=== PATIENT | male | born 1965 | race Caucasian/White ===

== ENCOUNTER 2017-02-03 09:14 | Inpatient (IN) | payer MEDICARE, MEDICAID ==
[~2017-02-03] VITALS: Ht 175.3 cm; Wt 109.2 kg
[2017-02-03] MEDS: OLANZapine 10 MG TAB PO SCH (09:00)
[~2017-02-03 09:14] MED LIST: /HALO5TAB OR; BENZ-52 PO; COGE1INJ OR; COLA100C5 PO; GABA600T PO; HALD100I2 IM; HALO5TA PO; Haldol Decanoate IM; KLON0.5T PO; NEUR300C PO; NICO21DI4 TD; TRAZ50TA11 PO
[2017-02-03] MEDS ORDERED: NICOTINE 21MG/24HR 1 EA TRANSDERMAL TD ONE (09:45)
[2017-02-03] MEDS ORDERED: HALD100I2 IM (11:38)
[2017-02-03] MEDS ORDERED: GABA-279 PO (11:38)
[2017-02-03] MEDS ORDERED: GABA-283 PO (11:38)
[2017-02-03] MEDS ORDERED: BENZ0.5T PO (11:38)
[2017-02-03] MEDS ORDERED: DOCU100C16 PO (11:38)
[2017-02-03] MEDS ORDERED: BUSP1TAB PO (12:07)
[2017-02-03] MEDS ORDERED: VENL75CA47 PO (12:07)
[2017-02-03 15:02] VITALS: BP 129/76
[2017-02-03] MEDS ORDERED: MOM 30ML SUSPENSION UDC PO PRN (15:45)
[2017-02-03] MEDS ORDERED: MAALOX 30 ML SUSP *UDC PO PRN (15:45)
[2017-02-03] MEDS ORDERED: traZODone 50 MG TAB PO PRN (16:45)
[2017-02-03] MEDS: DOCUSATE SODIUM 100 MG CAP PO SCH (21:28)
[2017-02-04] MEDS: OLANZapine 10 MG TAB PO SCH (08:59)
[2017-02-04] MEDS: DOCUSATE SODIUM 100 MG CAP PO SCH ×2 (08:59→20:45)
[2017-02-04] MEDS: NICOTINE 21MG/24HR 1 EA TRANSDERMAL TD SCH (11:47)
[2017-02-04] MEDS: VENLAFAXINE **XR** 75MG CAPSULE PO SCH (14:54)
[2017-02-04] MEDS: GABAPENTIN 100 MG CAP PO SCH (14:54)
[2017-02-04] MEDS: BENZTROPINE 0.5 MG TAB PO SCH ×2 (14:54→20:46)
[2017-02-04] MEDS: HALOPERIDOL DECANOATE 100 MG/ML VIAL (J1631) IM SCH (14:55)
[2017-02-04] MEDS: busPIRone 5 MG TAB PO SCH ×2 (15:54→20:44)
[2017-02-04 16:47] LABS: ALBUMIN 3.6 GM/DL (3.2-5.2); ALBUMIN/GLOBULIN RATIO 1.03 (1.00-1.93); ALKALINE PHOSPHATASE 66 U/L (45-117); ALT/SGPT 32 U/L (12-78); AST/SGOT 19 U/L (15-37); BILIRUBIN,DIRECT < 0.1 MG/DL (0.0-0.2); BILIRUBIN,TOTAL 0.4 MG/DL (0.2-1.0); TOTAL PROTEIN 7.1 GM/DL (6.4-8.2)
[2017-02-04 18:00] VITALS: BP 117/63
[2017-02-04] MEDS: GABAPENTIN 400 MG CAP PO SCH (20:45)
[2017-02-04] MEDS: MIRTAZAPINE 15 MG TAB PO SCH (20:46)
[2017-02-04] MEDS: QUEtiapine FUMARATE 200 MG TAB PO SCH (20:47)
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
--- NOTE | 2017-02-04 23:20 | HPE ---
DATE OF ADMISSION: 02/03/2017 HISTORY OF PRESENT ILLNESS: Please refer to the psychiatric history and evaluation for further details on this admission. This examination and history performed is intended for medical issues which may need treatment, followup or consultation on this 51-year-old male that was transferred from [facility] having paranoid thoughts. ALLERGIES: FLUPHENAZINE, LITHIUM, LOXAPINE, MEPERIDINE, PHENOTHIAZINE, THORAZINE, THIOTHIXENE. SOCIAL HISTORY: He is single. Smokes - one pack of cigarettes per day. PAST MEDICAL HISTORY: Per the record anxiety, bipolar disorder, paranoid schizophrenia. PAST SURGICAL HISTORY: Colonoscopy for polyps, nasal surgery, cardiac catheterization. REVIEW OF SYSTEMS: The patient was asked for review of systems and physical examination by myself and declined as well as declined to the health and safety coordinator [place]. PHYSICAL EXAMINATION: The patient declined any history and physical. He refused any examination attempted on the , and . The patient continues to still refuse. Vital signs: Height is 69 inches, weight is 98.1 kg. BMI is 31.9. Blood pressure was 129/76, pulse 95, respirations 18, temperature 97.9.
[2017-02-05] MEDS ORDERED: GABAPENTIN 100 MG CAP PO ONE (09:00)
[2017-02-05] MEDS: DOCUSATE SODIUM 100 MG CAP PO SCH ×2 (09:04→21:53)
[2017-02-05] MEDS: VENLAFAXINE **XR** 75MG CAPSULE PO SCH (09:04)
[2017-02-05] MEDS: GABAPENTIN 100 MG CAP PO SCH (09:04)
[2017-02-05] MEDS: busPIRone 5 MG TAB PO SCH ×3 (09:04→21:53)
[2017-02-05] MEDS: BENZTROPINE 0.5 MG TAB PO SCH ×2 (09:04→21:54)
[2017-02-05] MEDS: NICOTINE 21MG/24HR 1 EA TRANSDERMAL TD SCH (09:09)
--- NOTE | 2017-02-05 15:24 | IPNPDOC ---
[facility] Progress Note Progress Note DATE OF SERVICE: 02/05/17 Evaluated 51-year-old male with history of schizoaffective disorder versus paranoid schizophrenia. The patient states that he feels safe at the inpatient mental health unit and that he wants to move to [place] and leave [facility], because he knows that people want to kill him there. He doesn't know which people are those that want to kill him. Patient refused to take his Seroquel dose at night and he says he doesn't want to take it, that he already takes too many medications. He continues to affirm that somebody is chasing him and wants him . CURRENT MEDICATIONS: See below. MENTAL STATUS EXAMINATION: Patient is a 51-year old male, who is resting hospital clothes, alert, guarded, very anxious and with poor eye contact. Speech: Is limited. He doesn't speak very much but the tone, volume and speed of his speech are normal. There is no pressured speech and no circumstantiality. There is no tangentiality. Language skills are fair. Thought processes including: Linear. Thought content: Positive for paranoid and persecutory delusions, negative for homicidal or suicidal ideation. Negative for auditory or visual hallucinations, negative for obsessions and compulsions and negative for phobias. Abstract reasoning, and computation: Fair. Description of associations: No loosening of associations Description of abnormal or psychotic thoughts: Delusional thoughts (paranoid and persecutory). Judgment: Poor. Insight: Poor. Orientation: Oriented 3. Recent and remote memory: Intact. Attention span and concentration: For. Language: Fluid, structured. Fund of knowledge: Poor. Mood: "I feel safer here". Affect: Guarded DIAGNOSES: 1. Paranoid schizophrenia. 2. Rule out schizoaffective disorder. . ASSESSMENT: The patient is very delusional and he needs to be hospitalized for further treatment, with medications and psychotherapy. MANAGEMENT PLAN: Patient will continue to be hospitalized on the proper arrangements will be made for him to continue as an outpatient once he is stabilized. TIME SPENT: 15 minutes. Vital Signs Vital Signs Date Time Temp Pulse Resp B/P Pulse Ox O2 Delivery O2 Flow Rate FiO2 02/05/17 08:30 Room Air 02/04/17 18:00 99.0 88 18 117/63 02/03/17 15:02 97 Current Medications Current Medications Acetaminophen (Tylenol Tab) 650 mg Q6HP PRN PO HEADACHE or DISCOMFORT; Start at 15:45; Stop 03/05/17 at 15:44 Al Hydrox/Mg Hydrox/Simethicone (Mylanta) 30 ml Q4HP PRN PO HEARTBURN/ INDIGESTION; Start 02/03/17 at 15:45; Stop 03/05/17 at 15:44 Benztropine Mesylate (Cogentin) 0.5 mg BID PO Last administered on 02/05/17 09 :04; Start 02/04/17 at 09:00; Stop 03/06/17 at 08:59 Buspirone HCl (Buspar) 7.5 mg TID PO Last administered on 02/05/17 09:04; Start 02/04/17 at 16:00; Stop 03/06/17 at 15:59 Docusate Sodium (Colace) 100 mg BID PO Last administered on 02/05/17 09:04; Start 02/03/17 at 21:00; Stop 03/05/17 at 20:59 Gabapentin (Neurontin) 100 mg QAM PO Last administered on 02/05/17 09:04; Start 02/04/17 at 09:00; Stop 03/06/17 at 08:59 Gabapentin (Neurontin) 400 mg QHS PO Last administered on 02/04/17 20:45; Start 02/04/17 at 21:00; Stop 03/06/17 at 20:59 Haloperidol Decanoate (Haldol Decanoate) 50 mg Q14D@14 IM Last administered on 02/04/17 14:55; Start 02/04/17 at 14:00; Stop 03/06/17 at 13:59 Home Med (Med Rec Complete!) ASDIRECTED XX ; Start 02/03/17 at 12:15; Stop at 12:15; Status DC Lorazepam (Ativan) 1 mg Q8HP PRN PO ANXIETY/AGITATION; Start 02/03/17 at 15:45 ; Stop 02/10/17 at 15:44 Magnesium Hydroxide (Milk Of Magnesia) 30 ml DAILYPRN PRN PO CONSTIPATION; Start 02/03/17 at 15:45; Stop 03/05/17 at 15:44 Mirtazapine (Remeron) 15 mg QHS PO Last administered on 02/04/17 20:46; Start 02/04/17 at 21:00; Stop 03/06/17 at 20:59 Nicotine (Nicoderm Cq 21mg) 1 patch DAILY TD Last administered on 02/05/17 09: 09; Start 02/04/17 at 09:00; Stop 03/06/17 at 08:59 Olanzapine (ZyPREXA) 10 mg DAILY PO Last administered on 02/04/17 08:59; Start 02/03/17 at 09:00; Stop 02/04/17 at 14:20; Status DC Quetiapine Fumarate (SEROquel) 200 mg QHS PO ; Start 02/04/17 at 21:00; Stop at 20:59 Trazodone HCl (Desyrel) 50 mg QHSP PRN PO INSOMNIA; Start 02/03/17 at 16:45; Stop 03/05/17 at 16:44; Status Cancel Venlafaxine HCl (Effexor Xr) 75 mg DAILY PO Last administered on 02/05/17 09:04; Start 02/04/17 at 09:00; Stop 03/06/17 at 08:59 Allergies Coded Allergies: Loxapine (Verified Allergy, Mild, 01/21/13) Thiothixene (Verified Allergy, Mild, 01/21/13) Fluphenazine (Verified Allergy, Unknown, 09/12/15) UNKNOWN [place] (Verified Allergy, Unknown, UNKNOWN, 09/12/15) Meperidine (Verified Allergy, Unknown, UNKNOWN, 09/12/15) Phenothiazines (Verified Allergy, Unknown, UNKNOWN, 09/12/15) Thioridazine (Verified Allergy, Unknown, UNKNOWN, 09/12/15) KELVIN GARIBAY MD Feb 05, 2017 15:24
[2017-02-05 18:00] VITALS: BP 110/70
[2017-02-05] MEDS: QUEtiapine FUMARATE 200 MG TAB PO SCH (21:00)
[2017-02-05] MEDS: MIRTAZAPINE 15 MG TAB PO SCH (21:52)
[2017-02-05] MEDS: GABAPENTIN 400 MG CAP PO SCH (21:54)
[2017-02-05] MEDS: LORazepam 1 MG TAB PO PRN (23:37)
[2017-02-06] MEDS: NICOTINE 21MG/24HR 1 EA TRANSDERMAL TD SCH (08:28)
[2017-02-06] MEDS: VENLAFAXINE **XR** 75MG CAPSULE PO SCH (08:28)
[2017-02-06] MEDS: busPIRone 5 MG TAB PO SCH ×3 (08:28→20:21)
[2017-02-06] MEDS: GABAPENTIN 100 MG CAP PO SCH (08:29)
[2017-02-06] MEDS: DOCUSATE SODIUM 100 MG CAP PO SCH ×2 (08:29→20:21)
[2017-02-06] MEDS: BENZTROPINE 0.5 MG TAB PO SCH ×2 (08:29→20:21)
--- NOTE | 2017-02-06 13:06 | IPNPDOC ---
[facility] Progress Note Progress Note DATE OF SERVICE: 02/06/17 Evaluated 51-year-old male with history of schizoaffective disorder versus paranoid schizophrenia who continues to be delusional. He still believes that there are people were trying to kill him and that's why he wants to move from [place] to [place]. He has continued to refuse to take Seroquel. CURRENT MEDICATIONS: See below. MENTAL STATUS EXAMINATION: Patient is a 51-year old male, who is anxious, cooperative, internally preoccupied. Speech: Is not tangential and not circumstantial. There is poverty of speech because he is focused in his paranoid delusions and for that reason he has trouble in keeping up a conversation for a long period of time. Language skills are fair. Thought processes including: Linear. Thought content: Paranoid and persecutory delusions are present. Seems to be responding to internal stimuli Abstract reasoning, and computation: He has problems with abstract reasoning and he is not able to concentrate enough in order to do substractions. Description of associations: No loosening of associations Description of abnormal or psychotic thoughts: Paranoid, persecutory delusions. Denies having auditory hallucinations but he is internally preoccupied. Judgment: Very poor. Insight: Very poor. Orientation: Oriented 3. Recent and remote memory: Recent is average. This is difficult to assess remote memory because he is not willing to talk much about his past. Attention span and concentration: Poor. Language: Fair. Fund of knowledge: Fair. Mood: Anxious. Affect: Anxious and depressed. DIAGNOSES: 1. Paranoid schizophrenia. 2. And major depressive disorder. ASSESSMENT: Patient is unstable, continues to be very guarded. Needs to continue hospitalization for further stabilization with medications and psychotherapy. Continues to refuse Seroquel and he doesn't want to accept any other mood stabilizer such as Depakote. MANAGEMENT PLAN: Continue hospitalization until his illness is adequately controlled. TIME SPENT: 15 minutes. Vital Signs Vital Signs Date Time Temp Pulse Resp B/P Pulse Ox O2 Delivery O2 Flow Rate FiO2 02/05/17 18:00 98.1 90 18 110/70 02/05/17 08:30 Room Air 02/03/17 15:02 97 Current Medications Current Medications Acetaminophen (Tylenol Tab) 650 mg Q6HP PRN PO HEADACHE or DISCOMFORT; Start at 15:45; Stop 03/05/17 at 15:44 Al Hydrox/Mg Hydrox/Simethicone (Mylanta) 30 ml Q4HP PRN PO HEARTBURN/ INDIGESTION; Start 02/03/17 at 15:45; Stop 03/05/17 at 15:44 Benztropine Mesylate (Cogentin) 0.5 mg BID PO Last administered on 02/06/17 08 :29; Start 02/04/17 at 09:00; Stop 03/06/17 at 08:59 Buspirone HCl (Buspar) 7.5 mg TID PO Last administered on 02/06/17 08:28; Start 02/04/17 at 16:00; Stop 03/06/17 at 15:59 Docusate Sodium (Colace) 100 mg BID PO Last administered on 02/06/17 08:29; Start 02/03/17 at 21:00; Stop 03/05/17 at 20:59 Gabapentin (Neurontin) 100 mg QAM PO Last administered on 02/06/17 08:29; Start 02/04/17 at 09:00; Stop 03/06/17 at 08:59 Gabapentin (Neurontin) 400 mg QHS PO Last administered on 02/05/17 21:54; Start 02/04/17 at 21:00; Stop 03/06/17 at 20:59 Haloperidol Decanoate (Haldol Decanoate) 50 mg Q14D@14 IM Last administered on 02/04/17 14:55; Start 02/04/17 at 14:00; Stop 03/06/17 at 13:59 Home Med (Med Rec Complete!) ASDIRECTED XX ; Start 02/03/17 at 12:15; Stop at 12:15; Status DC Lorazepam (Ativan) 1 mg Q8HP PRN PO ANXIETY/AGITATION Last administered on 02/05 23:37; Start 02/03/17 at 15:45; Stop 02/10/17 at 15:44 Magnesium Hydroxide (Milk Of Magnesia) 30 ml DAILYPRN PRN PO CONSTIPATION; Start 02/03/17 at 15:45; Stop 03/05/17 at 15:44 Mirtazapine (Remeron) 15 mg QHS PO Last administered on 02/05/17 21:52; Start 02/04/17 at 21:00; Stop 03/06/17 at 20:59 Nicotine (Nicoderm Cq 21mg) 1 patch DAILY TD Last administered on 02/06/17 08: 28; Start 02/04/17 at 09:00; Stop 03/06/17 at 08:59 Olanzapine (ZyPREXA) 10 mg DAILY PO Last administered on 02/04/17 08:59; Start 02/03/17 at 09:00; Stop 02/04/17 at 14:20; Status DC Quetiapine Fumarate (SEROquel) 200 mg QHS PO ; Start 02/04/17 at 21:00; Stop at 20:59 Trazodone HCl (Desyrel) 50 mg QHSP PRN PO INSOMNIA; Start 02/03/17 at 16:45; Stop 03/05/17 at 16:44; Status Cancel Venlafaxine HCl (Effexor Xr) 75 mg DAILY PO Last administered on 02/06/17 08:28; Start 02/04/17 at 09:00; Stop 03/06/17 at 08:59 Allergies Coded Allergies: Loxapine (Verified Allergy, Mild, 01/21/13) Thiothixene (Verified Allergy, Mild, 01/21/13) Fluphenazine (Verified Allergy, Unknown, 09/12/15) UNKNOWN [place] (Verified Allergy, Unknown, UNKNOWN, 09/12/15) Meperidine (Verified Allergy, Unknown, UNKNOWN, 09/12/15) Phenothiazines (Verified Allergy, Unknown, UNKNOWN, 09/12/15) Thioridazine (Verified Allergy, Unknown, UNKNOWN, 09/12/15) KELVIN GARIBAY MD Feb 06, 2017 13:06
[2017-02-06 18:00] VITALS: BP 129/72
[2017-02-06] MEDS: GABAPENTIN 400 MG CAP PO SCH (20:21)
[2017-02-06] MEDS: MIRTAZAPINE 15 MG TAB PO SCH (20:21)
[2017-02-06] MEDS: QUEtiapine FUMARATE 200 MG TAB PO SCH (20:22)
[2017-02-07] MEDS: busPIRone 5 MG TAB PO SCH ×3 (08:16→20:14)
[2017-02-07] MEDS: GABAPENTIN 100 MG CAP PO SCH (08:16)
[2017-02-07] MEDS: DOCUSATE SODIUM 100 MG CAP PO SCH ×2 (08:16→20:15)
[2017-02-07] MEDS: NICOTINE 21MG/24HR 1 EA TRANSDERMAL TD SCH (08:16)
[2017-02-07] MEDS: BENZTROPINE 0.5 MG TAB PO SCH ×2 (08:16→20:15)
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
[2017-02-07 18:00] VITALS: BP 110/77
[2017-02-07] MEDS: GABAPENTIN 400 MG CAP PO SCH (20:14)
[2017-02-07] MEDS: MIRTAZAPINE 15 MG TAB PO SCH (20:15)
[2017-02-07] MEDS: VENLAFAXINE **XR** 75MG CAPSULE PO SCH (20:17)
[2017-02-07] MEDS: LORazepam 1 MG TAB PO PRN (23:13)
[2017-02-08 06:24] VITALS: BP 111/67
[2017-02-08] MEDS: GABAPENTIN 100 MG CAP PO SCH (09:03)
[2017-02-08] MEDS: DOCUSATE SODIUM 100 MG CAP PO SCH ×2 (09:03→20:18)
[2017-02-08] MEDS: BENZTROPINE 0.5 MG TAB PO SCH ×2 (09:03→20:18)
[2017-02-08] MEDS: NICOTINE 21MG/24HR 1 EA TRANSDERMAL TD SCH (09:03)
[2017-02-08] MEDS: busPIRone 5 MG TAB PO SCH ×3 (09:04→20:18)
[2017-02-08] MEDS: VENLAFAXINE **XR** 75MG CAPSULE PO SCH (20:18)
[2017-02-08] MEDS: GABAPENTIN 400 MG CAP PO SCH (20:18)
[2017-02-08] MEDS: MIRTAZAPINE 15 MG TAB PO SCH (20:18)
[2017-02-09] MEDS: busPIRone 5 MG TAB PO SCH ×3 (07:51→20:00)
[2017-02-09] MEDS: NICOTINE 21MG/24HR 1 EA TRANSDERMAL TD SCH (07:51)
[2017-02-09] MEDS: DOCUSATE SODIUM 100 MG CAP PO SCH ×2 (07:52→20:01)
[2017-02-09] MEDS: BENZTROPINE 0.5 MG TAB PO SCH ×2 (07:52→20:00)
[2017-02-09] MEDS: GABAPENTIN 100 MG CAP PO SCH (07:52)
[2017-02-09 18:00] VITALS: BP 100/60
[2017-02-09] MEDS: MIRTAZAPINE 15 MG TAB PO SCH (20:00)
[2017-02-09] MEDS: GABAPENTIN 400 MG CAP PO SCH (20:01)
[2017-02-09] MEDS: VENLAFAXINE **XR** 75MG CAPSULE PO SCH (20:01)
[2017-02-10] MEDS: LORazepam 1 MG TAB PO PRN (00:11)
[2017-02-10 07:05] VITALS: BP 122/67
[2017-02-10] MEDS: DOCUSATE SODIUM 100 MG CAP PO SCH ×2 (09:08→20:47)
[2017-02-10] MEDS: BENZTROPINE 0.5 MG TAB PO SCH ×2 (09:08→20:48)
[2017-02-10] MEDS: busPIRone 5 MG TAB PO SCH ×3 (09:09→20:48)
[2017-02-10] MEDS: GABAPENTIN 100 MG CAP PO SCH (09:09)
[2017-02-10] MEDS: NICOTINE 21MG/24HR 1 EA TRANSDERMAL TD SCH (09:11)
--- NOTE | 2017-02-10 17:02 | IPNPDOC ---
[facility] Progress Note Progress Note DATE OF SERVICE: 02/10/17 HISTORY: Evaluated pt. known for paranoid Schizophrenia who was admitted for being depressed, anxious and delusional. He has reported he doesn't want to continue living in [place] because "those people want to kill me". He persists with that idea and he has reported that his peers at [facility], [facility] are stealing his socks. He was hospitalized last year at [place] for 9 months. According to history, he hasn't been able to live on his won because he doesn't feel safe unless he's institutionalized. According to staff and patient he broke up with his girlfriend over the phone on Friday and that has affected his mood. VITAL SIGNS: See below. NEW TEST RESULTS: None. CURRENT MEDICATIONS: See below. MENTAL STATUS EXAMINATION: Patient is a 51-year old male, who is alert, less guarded, cooperative, with poor eye contact. Speech: Is normal. Language skills are fair. Thought processes including: irrational thoughts. Thought content: Negative for SI, negative HI, positiv for auditory hallucinations. Responds to internal stimuli Abstract reasoning, and computation: Impaired. Description of associations: No loosening of associations. Description of abnormal or psychotic thoughts: Delusional, paranoid and persecutory type. Judgment: Poor. Insight: Poor. Orientation: Oriented to place and person but not to time and date. Recent and remote memory: Impaired. Attention span and concentration: Poor. Language: Fluid, articulate. Fund of knowledge: Fair. Mood: "I'm anxious, where am I going to go now?". Affect: Sad, anxious. DIAGNOSES: 1. Schizophrenia, paranoid type. 2. Major Depressive Disorder. ASSESSMENT: Pt. is less withdrawn, he is more talkative and receptive. He's able to maintain longer conversations. He is still depressed and anxious, but less than upon admission MANAGEMENT PLAN: Will f/u transfer plan to [place]. TIME SPENT: 15 minutes. Vital Signs Vital Signs Date Time Temp Pulse Resp B/P Pulse Ox O2 Delivery O2 Flow Rate FiO2 02/10/17 07:05 97.9 99 18 122/67 Room Air Current Medications Current Medications Acetaminophen (Tylenol Tab) 650 mg Q6HP PRN PO HEADACHE or DISCOMFORT; Start at 15:45; Stop 03/05/17 at 15:44 Al Hydrox/Mg Hydrox/Simethicone (Mylanta) 30 ml Q4HP PRN PO HEARTBURN/ INDIGESTION; Start 02/03/17 at 15:45; Stop 03/05/17 at 15:44 Aripiprazole (AbiLIFY) 2.5 mg QHS PO Last administered on 02/09/17 20:00; Start 02/07/17 at 21:00; Stop 03/09/17 at 20:59 Benztropine Mesylate (Cogentin) 0.5 mg BID PO Last administered on 02/10/17 09 :08; Start 02/04/17 at 09:00; Stop 03/06/17 at 08:59 Buspirone HCl (Buspar) 7.5 mg TID PO Last administered on 02/10/17 15:50; Start 02/04/17 at 16:00; Stop 03/06/17 at 15:59 Docusate Sodium (Colace) 100 mg BID PO Last administered on 02/10/17 09:08; Start 02/03/17 at 21:00; Stop 03/05/17 at 20:59 Gabapentin (Neurontin) 100 mg QAM PO Last administered on 02/10/17 09:09; Start 02/04/17 at 09:00; Stop 03/06/17 at 08:59 Gabapentin (Neurontin) 400 mg QHS PO Last administered on 02/09/17 20:01; Start 02/04/17 at 21:00; Stop 03/06/17 at 20:59 Haloperidol Decanoate (Haldol Decanoate) 50 mg Q14D@14 IM Last administered on 02/04/17 14:55; Start 02/04/17 at 14:00; Stop 03/06/17 at 13:59 Home Med (Med Rec Complete!) ASDIRECTED XX ; Start 02/03/17 at 12:15; Stop at 12:15; Status DC Lorazepam (Ativan) 1 mg Q8HP PRN PO ANXIETY/AGITATION Last administered on 02/10 00:11; Start 02/03/17 at 15:45; Stop 02/16/17 at 15:44 Magnesium Hydroxide (Milk Of Magnesia) 30 ml DAILYPRN PRN PO CONSTIPATION; Start 02/03/17 at 15:45; Stop 03/05/17 at 15:44 Mirtazapine (Remeron) 15 mg QHS PO Last administered on 02/09/17 20:00; Start 02/04/17 at 21:00; Stop 03/06/17 at 20:59 Nicotine (Nicoderm Cq 21mg) 1 patch DAILY TD Last administered on 02/10/17 09: 11; Start 02/04/17 at 09:00; Stop 03/06/17 at 08:59 Olanzapine (ZyPREXA) 10 mg DAILY PO Last administered on 02/04/17 08:59; Start 02/03/17 at 09:00; Stop 02/04/17 at 14:20; Status DC Quetiapine Fumarate (SEROquel) 200 mg QHS PO ; Start 02/04/17 at 21:00; Stop at 13:42; Status DC Trazodone HCl (Desyrel) 50 mg QHSP PRN PO INSOMNIA; Start 02/03/17 at 16:45; Stop 03/05/17 at 16:44; Status Cancel Venlafaxine HCl (Effexor Xr) 75 mg DAILY PO Last administered on 02/06/17 08:28; Start 02/04/17 at 09:00; Stop 02/06/17 at 18:02; Status DC Venlafaxine HCl (Effexor Xr) 150 mg QHS PO Last administered on 02/09/17 20:01; Start 02/07/17 at 21:00; Stop 03/09/17 at 20:59 Allergies Coded Allergies: Loxapine (Verified Allergy, Mild, 01/21/13) Thiothixene (Verified Allergy, Mild, 01/21/13) Fluphenazine (Verified Allergy, Unknown, 09/12/15) UNKNOWN [place] (Verified Allergy, Unknown, UNKNOWN, 09/12/15) Meperidine (Verified Allergy, Unknown, UNKNOWN, 09/12/15) Phenothiazines (Verified Allergy, Unknown, UNKNOWN, 09/12/15) Thioridazine (Verified Allergy, Unknown, UNKNOWN, 09/12/15) KELVIN GARIBAY MD Feb 10, 2017 17:02
[2017-02-10 18:00] VITALS: BP 92/52
[2017-02-10] MEDS: GABAPENTIN 400 MG CAP PO SCH (20:47)
[2017-02-10] MEDS: VENLAFAXINE **XR** 75MG CAPSULE PO SCH (20:47)
[2017-02-10] MEDS: MIRTAZAPINE 15 MG TAB PO SCH (20:48)
[2017-02-11] MEDS: DOCUSATE SODIUM 100 MG CAP PO SCH ×2 (08:09→20:50)
[2017-02-11] MEDS: GABAPENTIN 100 MG CAP PO SCH (08:09)
[2017-02-11] MEDS: NICOTINE 21MG/24HR 1 EA TRANSDERMAL TD SCH (08:09)
[2017-02-11] MEDS: busPIRone 5 MG TAB PO SCH ×3 (08:09→20:50)
[2017-02-11] MEDS: BENZTROPINE 0.5 MG TAB PO SCH ×2 (08:10→20:50)
--- NOTE | 2017-02-11 11:51 | IPNPDOC ---
[facility] Progress Note Progress Note DATE OF SERVICE: 02/11/17 HISTORY: Evaluated 51 year old male with history of Schizophrenia, paranoid type , with persecutory and paranoid delusions, who doesn't feel safe when living on his own. He was hospitalized at [place] for 9 months and he is concerned about his future living situation. VITAL SIGNS: See below. NEW TEST RESULTS: None. CURRENT MEDICATIONS: See below. MENTAL STATUS EXAMINATION: Patient is a 51-year old male, who is alert, oriented, cooperative with interview, with improved eye contact. Speech: Is not tangential and not circumstantial. Language skills are fair. Thought processes including: Linear. Thought content: Paranoid and persecutory delusions are present. He denies auditory or visual hallucinations but he continues to be internally preoccupied Abstract reasoning, and computation: Poor Description of associations: No loosening of associations. Description of abnormal or psychotic thoughts: Delusional, persecutory and paranoid-type. He believes there is a group of drug dealers in his hometown and want to kill him over his properties. He explained that these people want to take over his properties and because he hasn't agreed to that, they want to kill him. He states these people were his brother acquaintances and that his ex- girlfriend knew them too. Judgment: Poor. Insight: For. Orientation: Oriented to place and person and partially to place and time. Recent and remote memory: Poor. Attention span and concentration: Poor. Language: Fair. Fund of"I'm on and off with my depression" Affect: Constricted. DIAGNOSES: 1. Schizophrenia, paranoid type. 2. Major depressive disorder. 3. Anxiety. ASSESSMENT: Patient has made some progress since he was admitted. He is able to keep eye contact, he is less guarded and defensive, he is able to maintain a longer conversation. He has improved but not to the desired level. MANAGEMENT PLAN: Will continue current treatment plan and will follow up on the possibility of transferring him to some [place]. The author of this document will explain to him that once he is Stable, some [facility] will be able to referred him and transfer him to [facility]. TIME SPENT: 15 minutes. Vital Signs Vital Signs Date Time Temp Pulse Resp B/P Pulse Ox O2 Delivery O2 Flow Rate FiO2 02/10/17 18:00 97.3 83 16 92/52 02/10/17 07:05 Room Air Current Medications Current Medications Acetaminophen (Tylenol Tab) 650 mg Q6HP PRN PO HEADACHE or DISCOMFORT; Start at 15:45; Stop 03/05/17 at 15:44 Al Hydrox/Mg Hydrox/Simethicone (Mylanta) 30 ml Q4HP PRN PO HEARTBURN/ INDIGESTION; Start 02/03/17 at 15:45; Stop 03/05/17 at 15:44 Aripiprazole (AbiLIFY) 2.5 mg QHS PO Last administered on 02/10/17 20:50; Start 02/07/17 at 21:00; Stop 03/09/17 at 20:59 Benztropine Mesylate (Cogentin) 0.5 mg BID PO Last administered on 02/11/17 08 :10; Start 02/04/17 at 09:00; Stop 03/06/17 at 08:59 Buspirone HCl (Buspar) 7.5 mg TID PO Last administered on 02/11/17 08:09; Start 02/04/17 at 16:00; Stop 03/06/17 at 15:59 Docusate Sodium (Colace) 100 mg BID PO Last administered on 02/11/17 08:09; Start 02/03/17 at 21:00; Stop 03/05/17 at 20:59 Gabapentin (Neurontin) 100 mg QAM PO Last administered on 02/11/17 08:09; Start 02/04/17 at 09:00; Stop 03/06/17 at 08:59 Gabapentin (Neurontin) 400 mg QHS PO Last administered on 02/10/17 20:47; Start 02/04/17 at 21:00; Stop 03/06/17 at 20:59 Haloperidol Decanoate (Haldol Decanoate) 50 mg Q14D@14 IM Last administered on 02/04/17 14:55; Start 02/04/17 at 14:00; Stop 03/06/17 at 13:59 Home Med (Med Rec Complete!) ASDIRECTED XX ; Start 02/03/17 at 12:15; Stop at 12:15; Status DC Lorazepam (Ativan) 1 mg Q8HP PRN PO ANXIETY/AGITATION Last administered on 02/10 00:11; Start 02/03/17 at 15:45; Stop 02/16/17 at 15:44 Magnesium Hydroxide (Milk Of Magnesia) 30 ml DAILYPRN PRN PO CONSTIPATION; Start 02/03/17 at 15:45; Stop 03/05/17 at 15:44 Mirtazapine (Remeron) 15 mg QHS PO Last administered on 02/10/17 20:48; Start 02/04/17 at 21:00; Stop 03/06/17 at 20:59 Nicotine (Nicoderm Cq 21mg) 1 patch DAILY TD Last administered on 02/11/17 08: 09; Start 02/04/17 at 09:00; Stop 03/06/17 at 08:59 Olanzapine (ZyPREXA) 10 mg DAILY PO Last administered on 02/04/17 08:59; Start 02/03/17 at 09:00; Stop 02/04/17 at 14:20; Status DC Quetiapine Fumarate (SEROquel) 200 mg QHS PO ; Start 02/04/17 at 21:00; Stop at 13:42; Status DC Trazodone HCl (Desyrel) 50 mg QHSP PRN PO INSOMNIA; Start 02/03/17 at 16:45; Stop 03/05/17 at 16:44; Status Cancel Venlafaxine HCl (Effexor Xr) 75 mg DAILY PO Last administered on 02/06/17 08:28; Start 02/04/17 at 09:00; Stop 02/06/17 at 18:02; Status DC Venlafaxine HCl (Effexor Xr) 150 mg QHS PO Last administered on 02/10/17 20:47; Start 02/07/17 at 21:00; Stop 03/09/17 at 20:59 Allergies Coded Allergies: Loxapine (Verified Allergy, Mild, 01/21/13) Thiothixene (Verified Allergy, Mild, 01/21/13) Fluphenazine (Verified Allergy, Unknown, 09/12/15) UNKNOWN [place] (Verified Allergy, Unknown, UNKNOWN, 09/12/15) Meperidine (Verified Allergy, Unknown, UNKNOWN, 09/12/15) Phenothiazines (Verified Allergy, Unknown, UNKNOWN, 09/12/15) Thioridazine (Verified Allergy, Unknown, UNKNOWN, 09/12/15) KELVIN GARIBAY MD Feb 11, 2017 11:51
[2017-02-11 18:00] VITALS: BP 106/53
[2017-02-11] MEDS: GABAPENTIN 400 MG CAP PO SCH (20:50)
[2017-02-11] MEDS: VENLAFAXINE **XR** 75MG CAPSULE PO SCH (20:50)
[2017-02-11] MEDS: MIRTAZAPINE 15 MG TAB PO SCH (20:50)
[2017-02-11] MEDS: ACETAMINOPHEN TAB 650MG DOSE (2X325MG) PO PRN (23:30)
[2017-02-12] MEDS: LORazepam 1 MG TAB PO PRN (00:50)
[2017-02-12] MEDS: DOCUSATE SODIUM 100 MG CAP PO SCH ×2 (08:54→20:46)
[2017-02-12] MEDS: BENZTROPINE 0.5 MG TAB PO SCH ×2 (08:54→20:46)
[2017-02-12] MEDS: GABAPENTIN 100 MG CAP PO SCH (08:54)
[2017-02-12] MEDS: busPIRone 5 MG TAB PO SCH ×3 (08:54→20:47)
[2017-02-12] MEDS: NICOTINE 21MG/24HR 1 EA TRANSDERMAL TD SCH (08:56)
[2017-02-12] MEDS: MIRTAZAPINE 15 MG TAB PO SCH (20:46)
[2017-02-12] MEDS: GABAPENTIN 400 MG CAP PO SCH (20:46)
[2017-02-12] MEDS: VENLAFAXINE **XR** 75MG CAPSULE PO SCH (20:47)
--- NOTE | 2017-02-12 21:30 | IPNPDOC ---
[facility] Progress Note Progress Note DATE OF SERVICE: 02/12/17 HISTORY: 51 year old male with history of schizophrenia, paranoid type. He has been taking his medications but he states that people are stealing from him, that there are people in [place] that want to kill him and for that reason he wants to move to [place]. He receives Haldol Decanoate, takes Cogentin, Gabapentin, Aripiprazole, Trazodone and Venlafaxine. He spent 9 months at [place] last year and for that reason he was a little bit reluctant to go back there but this morning he agreed to be transferred to [place]. VITAL SIGNS: See below. NEW TEST RESULTS: None CURRENT MEDICATIONS: See below. MENTAL STATUS EXAMINATION: Patient is a 51-year old male, who is alert, cooperative with interview, poor eye contact. Speech: tangential at times. Language skills are fair. Thought processes including: Linear. Thought content: Negative for suicidal ideation, negative for homicidal ideation , positive for auditory hallucinations, positive for paranoid, persecutory delusions. Abstract reasoning, and computation: Poor. Description of associations: No loose. Description of abnormal or psychotic thoughts: Delusional thoughts, paranoid, persecutory.Auditory hallucinations, responds to internal stimuli. Judgment: Poor. Insight: Poor. Orientation: Oriented to place and person but only partially to time and date. Recent and remote memory: Impaired. Attention span and concentration: Poor. Language: Fair. Fund of knowledge: Fair. Mood: Depressed/anxious. Affect: Depressed/anxious. DIAGNOSES: 1. Schizophrenia, paranoid type. 2. Major Depressive Disorder. 3. Anxiety. ASSESSMENT:Patient has had better days, but today he seemed more depressed and anxious. It probably is related to his recent breakup with his girlfriend. MANAGEMENT PLAN: Continue with current treatment and f/u with transfer plan to [place]. TIME SPENT: 15 minutes. Vital Signs Vital Signs Date Time Temp Pulse Resp B/P (MAP) Pulse Ox O2 Delivery O2 Flow Rate FiO2 02/11/17 18:00 98.9 124 16 106/53 (70) 02/10/17 07:05 Room Air Current Medications Current Medications Acetaminophen (Tylenol Tab) 650 mg Q6HP PRN PO HEADACHE or DISCOMFORT Last administered on 02/11/17t 23:30; Start 02/03/17 at 15:45; Stop 03/05/17 at 15:44 Al Hydrox/Mg Hydrox/Simethicone (Mylanta) 30 ml Q4HP PRN PO HEARTBURN/ INDIGESTION; Start 02/03/17 at 15:45; Stop 03/05/17 at 15:44 Aripiprazole (AbiLIFY) 2.5 mg QHS PO Last administered on 02/12/17 20:47; Start 02/07/17 at 21:00; Stop 03/09/17 at 20:59 Benztropine Mesylate (Cogentin) 0.5 mg BID PO Last administered on 02/12/17 20 :46; Start 02/04/17 at 09:00; Stop 03/06/17 at 08:59 Buspirone HCl (Buspar) 7.5 mg TID PO Last administered on 02/12/17 20:47; Start 02/04/17 at 16:00; Stop 03/06/17 at 15:59 Docusate Sodium (Colace) 100 mg BID PO Last administered on 02/12/17 20:46; Start 02/03/17 at 21:00; Stop 03/05/17 at 20:59 Gabapentin (Neurontin) 100 mg QAM PO Last administered on 02/12/17 08:54; Start 02/04/17 at 09:00; Stop 03/06/17 at 08:59 Gabapentin (Neurontin) 400 mg QHS PO Last administered on 02/12/17 20:46; Start 02/04/17 at 21:00; Stop 03/06/17 at 20:59 Haloperidol Decanoate (Haldol Decanoate) 50 mg Q14D@14 IM Last administered on 02/04/17 14:55; Start 02/04/17 at 14:00; Stop 03/06/17 at 13:59 Home Med (Med Rec Complete!) ASDIRECTED XX ; Start 02/03/17 at 12:15; Stop at 12:15; Status DC Lorazepam (Ativan) 1 mg Q8HP PRN PO ANXIETY/AGITATION Last administered on 02/12 00:50; Start 02/03/17 at 15:45; Stop 02/16/17 at 15:44 Magnesium Hydroxide (Milk Of Magnesia) 30 ml DAILYPRN PRN PO CONSTIPATION; Start 02/03/17 at 15:45; Stop 03/05/17 at 15:44 Mirtazapine (Remeron) 15 mg QHS PO Last administered on 02/12/17 20:46; Start 02/04/17 at 21:00; Stop 03/06/17 at 20:59 Nicotine (Nicoderm Cq 21mg) 1 patch DAILY TD Last administered on 02/12/17 08: 56; Start 02/04/17 at 09:00; Stop 03/06/17 at 08:59 Olanzapine (ZyPREXA) 10 mg DAILY PO Last administered on 02/04/17 08:59; Start 02/03/17 at 09:00; Stop 02/04/17 at 14:20; Status DC Quetiapine Fumarate (SEROquel) 200 mg QHS PO ; Start 02/04/17 at 21:00; Stop at 13:42; Status DC Trazodone HCl (Desyrel) 50 mg QHSP PRN PO INSOMNIA; Start 02/03/17 at 16:45; Stop 03/05/17 at 16:44; Status Cancel Venlafaxine HCl (Effexor Xr) 75 mg DAILY PO Last administered on 02/06/17 08:28; Start 02/04/17 at 09:00; Stop 02/06/17 at 18:02; Status DC Venlafaxine HCl (Effexor Xr) 150 mg QHS PO Last administered on 02/12/17 20:47; Start 02/07/17 at 21:00; Stop 03/09/17 at 20:59 Allergies Coded Allergies: Loxapine (Verified Allergy, Mild, 01/21/13) Thiothixene (Verified Allergy, Mild, 01/21/13) Fluphenazine (Verified Allergy, Unknown, 09/12/15) UNKNOWN [place] (Verified Allergy, Unknown, UNKNOWN, 09/12/15) Meperidine (Verified Allergy, Unknown, UNKNOWN, 09/12/15) Phenothiazines (Verified Allergy, Unknown, UNKNOWN, 09/12/15) Thioridazine (Verified Allergy, Unknown, UNKNOWN, 09/12/15) KELVIN GARIBAY MD Feb 12, 2017 21:30
[2017-02-13] MEDS: NICOTINE 21MG/24HR 1 EA TRANSDERMAL TD SCH (08:32)
[2017-02-13] MEDS: busPIRone 5 MG TAB PO SCH ×3 (08:34→20:38)
[2017-02-13] MEDS: BENZTROPINE 0.5 MG TAB PO SCH ×2 (08:35→20:38)
[2017-02-13] MEDS: GABAPENTIN 100 MG CAP PO SCH (08:35)
[2017-02-13] MEDS: DOCUSATE SODIUM 100 MG CAP PO SCH ×2 (08:36→20:38)
--- NOTE | 2017-02-13 16:51 | IPNPDOC ---
[facility] Progress Note Progress Note DATE OF SERVICE: 02/13/17 INTERVAL HISTORY: Medication Side effects: Not reported Behavior: Isolated, suspicious. Group Attendance: Attends some groups, like yoga and meditation Psychiatric Symptom change: Psychotic, persecutory and paranoid delusions. Depressive: Low energy, sleep and appetite, anhedonia, guilt, psychomotor retardation. VITAL SIGNS: See below. NEW TEST RESULTS: See below CURRENT MEDICATIONS: See below. MENTAL STATUS EXAMINATION: General: Alert, cooperative with poor eye contact. Speech: Slow, tangential at times Thought processes: Linear Thought content: Negative for suicidal ideation, negative for homicidal ideation positive for paranoid, persecutory delusions. He denies auditory/ visual hallucinations but he responds to internal stimuli and he has stated that he sees people coming into his room are trying to hurt him. Abstract reasoning, and computation: Poor Description of associations: No loosening of associations Description of abnormal or psychotic thoughts: Paranoid, persecutory delusions. Response to internal stimuli. Judgment: Poor Insight: Poor Orientation: Partially oriented to date and time of fully oriented to place and person Recent and remote memory: Poor Attention span and concentration: Poor Fund of knowledge: Fair Mood: "Still depressed" Affect: Sad DIAGNOSES: 1. Paranoid schizophrenia. 2. major depressive disorder. ASSESSMENT: He is cooperative and pleasant, has never been aggressive and in spite of his illness he is able to control his impulses. He is less guarded, less suspicious and slightly less depressed compared to his admission but continues to be very anxious. MANAGEMENT PLAN: Medications: Please see below Psychotherapy: Attends groups Social: Poor social interaction Misc: - Disposition: He will continue at the inpatient mental health unit until he can be transferred to [facility] for long-term treatment. TIME SPENT: 15 minutes. Vital Signs Vital Signs Date Time Temp Pulse Resp B/P (MAP) Pulse Ox O2 Delivery O2 Flow Rate FiO2 02/11/17 18:00 98.9 124 16 106/53 (70) 02/10/17 07:05 Room Air Current Medications Current Medications Acetaminophen (Tylenol Tab) 650 mg Q6HP PRN PO HEADACHE or DISCOMFORT Last administered on 02/11/17t 23:30; Start 02/03/17 at 15:45; Stop 03/05/17 at 15:44 Al Hydrox/Mg Hydrox/Simethicone (Mylanta) 30 ml Q4HP PRN PO HEARTBURN/ INDIGESTION; Start 02/03/17 at 15:45; Stop 03/05/17 at 15:44 Aripiprazole (AbiLIFY) 2.5 mg QHS PO Last administered on 02/12/17 20:47; Start 02/07/17 at 21:00; Stop 03/09/17 at 20:59 Benztropine Mesylate (Cogentin) 0.5 mg BID PO Last administered on 02/13/17 08 :35; Start 02/04/17 at 09:00; Stop 03/06/17 at 08:59 Buspirone HCl (Buspar) 7.5 mg TID PO Last administered on 02/13/17 15:31; Start 02/04/17 at 16:00; Stop 03/06/17 at 15:59 Docusate Sodium (Colace) 100 mg BID PO Last administered on 02/13/17 08:36; Start 02/03/17 at 21:00; Stop 03/05/17 at 20:59 Gabapentin (Neurontin) 100 mg QAM PO Last administered on 02/13/17 08:35; Start 02/04/17 at 09:00; Stop 03/06/17 at 08:59 Gabapentin (Neurontin) 400 mg QHS PO Last administered on 02/12/17 20:46; Start 02/04/17 at 21:00; Stop 03/06/17 at 20:59 Haloperidol Decanoate (Haldol Decanoate) 50 mg Q14D@14 IM Last administered on 02/04/17 14:55; Start 02/04/17 at 14:00; Stop 03/06/17 at 13:59 Home Med (Med Rec Complete!) ASDIRECTED XX ; Start 02/03/17 at 12:15; Stop at 12:15; Status DC Lorazepam (Ativan) 1 mg Q8HP PRN PO ANXIETY/AGITATION Last administered on 02/12 00:50; Start 02/03/17 at 15:45; Stop 02/16/17 at 15:44 Magnesium Hydroxide (Milk Of Magnesia) 30 ml DAILYPRN PRN PO CONSTIPATION; Start 02/03/17 at 15:45; Stop 03/05/17 at 15:44 Mirtazapine (Remeron) 15 mg QHS PO Last administered on 02/12/17 20:46; Start 02/04/17 at 21:00; Stop 03/06/17 at 20:59 Nicotine (Nicoderm Cq 21mg) 1 patch DAILY TD Last administered on 02/13/17 08: 32; Start 02/04/17 at 09:00; Stop 03/06/17 at 08:59 Olanzapine (ZyPREXA) 10 mg DAILY PO Last administered on 02/04/17 08:59; Start 02/03/17 at 09:00; Stop 02/04/17 at 14:20; Status DC Quetiapine Fumarate (SEROquel) 200 mg QHS PO ; Start 02/04/17 at 21:00; Stop at 13:42; Status DC Trazodone HCl (Desyrel) 50 mg QHSP PRN PO INSOMNIA; Start 02/03/17 at 16:45; Stop 03/05/17 at 16:44; Status Cancel Venlafaxine HCl (Effexor Xr) 75 mg DAILY PO Last administered on 02/06/17 08:28; Start 02/04/17 at 09:00; Stop 02/06/17 at 18:02; Status DC Venlafaxine HCl (Effexor Xr) 150 mg QHS PO Last administered on 02/12/17 20:47; Start 02/07/17 at 21:00; Stop 03/09/17 at 20:59 Allergies Coded Allergies: Loxapine (Verified Allergy, Mild, 01/21/13) Thiothixene (Verified Allergy, Mild, 01/21/13) Fluphenazine (Verified Allergy, Unknown, 09/12/15) UNKNOWN [place] (Verified Allergy, Unknown, UNKNOWN, 09/12/15) Meperidine (Verified Allergy, Unknown, UNKNOWN, 09/12/15) Phenothiazines (Verified Allergy, Unknown, UNKNOWN, 09/12/15) Thioridazine (Verified Allergy, Unknown, UNKNOWN, 09/12/15) KELVIN GARIBAY MD Feb 13, 2017 16:51
[2017-02-13] MEDS: GABAPENTIN 400 MG CAP PO SCH (20:38)
[2017-02-13] MEDS: VENLAFAXINE **XR** 75MG CAPSULE PO SCH (20:38)
[2017-02-13] MEDS: MIRTAZAPINE 15 MG TAB PO SCH (20:38)
[2017-02-14] MEDS: NICOTINE 21MG/24HR 1 EA TRANSDERMAL TD SCH (08:01)
[2017-02-14] MEDS: DOCUSATE SODIUM 100 MG CAP PO SCH ×2 (08:01→20:44)
[2017-02-14] MEDS: busPIRone 5 MG TAB PO SCH ×3 (08:01→20:44)
[2017-02-14] MEDS: GABAPENTIN 100 MG CAP PO SCH (08:02)
[2017-02-14] MEDS: BENZTROPINE 0.5 MG TAB PO SCH ×2 (08:02→20:44)
--- NOTE | 2017-02-14 16:38 | IPNPDOC ---
[facility] Progress Note Progress Note DATE OF SERVICE: 02/14/17 HISTORY: Evaluated 51 year old male with history of schizophrenia, paranoid type who has a longstanding history of psychiatric illness, being treated with multiple medications through different periods of time. He is being treated with Aripiprazole, Haldol Decanoate,Gabapentin, Today, he was seen in his room, where he likes to spend most of his day. He was alert, cooperative, disheveled, suspicious. His speech was soft and normal in tone and volume. He is tangential. His thought process is positive for paranoid , persecutory delusions. He looks internally preoccupied. He denies suicidal ideation or homicidal ideation but continues to report that some people just want to kill me". He is partially oriented to time and date, but fully oriented to person and place. His recent and remote meory are impaired, his attention and concentration are poor. His judgement and insight are poor. His impulse control is fair. he has depressed mood and affect but denies SI. VITAL SIGNS: See below. NEW TEST RESULTS: . CURRENT MEDICATIONS: See below. DIAGNOSES: 1. Paranoid schizophrenia 2. major Depressive Disorder. ASSESSMENT:patient needs to be transferred [facility] and he agrees to it. The process has already started for him to be transferred to [place]. MANAGEMENT PLAN: Will f/u with arrangements for transfers to [place]. TIME SPENT: 15minutes. Vital Signs Vital Signs Date Time Temp Pulse Resp B/P (MAP) Pulse Ox O2 Delivery O2 Flow Rate FiO2 02/11/17 18:00 98.9 124 16 106/53 (70) 02/10/17 07:05 Room Air Current Medications Current Medications Acetaminophen (Tylenol Tab) 650 mg Q6HP PRN PO HEADACHE or DISCOMFORT Last administered on 02/11/17 23:30; Start 02/03/17 at 15:45; Stop 03/05/17 at 15:44 Al Hydrox/Mg Hydrox/Simethicone (Mylanta) 30 ml Q4HP PRN PO HEARTBURN/ INDIGESTION; Start 02/03/17 at 15:45; Stop 03/05/17 at 15:44 Aripiprazole (AbiLIFY) 2.5 mg QHS PO Last administered on 02/13/17 20:38; Start 02/07/17 at 21:00; Stop 03/09/17 at 20:59 Benztropine Mesylate (Cogentin) 0.5 mg BID PO Last administered on 02/14/17 08 :02; Start 02/04/17 at 09:00; Stop 03/06/17 at 08:59 Buspirone HCl (Buspar) 7.5 mg TID PO Last administered on 02/14/17 16:06; Start 02/04/17 at 16:00; Stop 03/06/17 at 15:59 Docusate Sodium (Colace) 100 mg BID PO Last administered on 02/14/17 08:01; Start 02/03/17 at 21:00; Stop 03/05/17 at 20:59 Gabapentin (Neurontin) 100 mg QAM PO Last administered on 02/14/17 08:02; Start 02/04/17 at 09:00; Stop 03/06/17 at 08:59 Gabapentin (Neurontin) 400 mg QHS PO Last administered on 02/13/17 20:38; Start 02/04/17 at 21:00; Stop 03/06/17 at 20:59 Haloperidol Decanoate (Haldol Decanoate) 50 mg Q14D@14 IM Last administered on 02/04/17 14:55; Start 02/04/17 at 14:00; Stop 03/06/17 at 13:59 Home Med (Med Rec Complete!) ASDIRECTED XX ; Start 02/03/17 at 12:15; Stop at 12:15; Status DC Lorazepam (Ativan) 1 mg Q8HP PRN PO ANXIETY/AGITATION Last administered on 02/12 00:50; Start 02/03/17 at 15:45; Stop 02/16/17 at 15:44 Magnesium Hydroxide (Milk Of Magnesia) 30 ml DAILYPRN PRN PO CONSTIPATION; Start 02/03/17 at 15:45; Stop 03/05/17 at 15:44 Mirtazapine (Remeron) 15 mg QHS PO Last administered on 02/13/17 20:38; Start 02/04/17 at 21:00; Stop 03/06/17 at 20:59 Nicotine (Nicoderm Cq 21mg) 1 patch DAILY TD Last administered on 02/14/17 08: 01; Start 02/04/17 at 09:00; Stop 03/06/17 at 08:59 Olanzapine (ZyPREXA) 10 mg DAILY PO Last administered on 02/04/17 08:59; Start 02/03/17 at 09:00; Stop 02/04/17 at 14:20; Status DC Quetiapine Fumarate (SEROquel) 200 mg QHS PO ; Start 02/04/17 at 21:00; Stop at 13:42; Status DC Trazodone HCl (Desyrel) 50 mg QHSP PRN PO INSOMNIA; Start 02/03/17 at 16:45; Stop 03/05/17 at 16:44; Status Cancel Venlafaxine HCl (Effexor Xr) 75 mg DAILY PO Last administered on 02/06/17 08:28; Start 02/04/17 at 09:00; Stop 02/06/17 at 18:02; Status DC Venlafaxine HCl (Effexor Xr) 150 mg QHS PO Last administered on 02/13/17 20:38; Start 02/07/17 at 21:00; Stop 03/09/17 at 20:59 Allergies Coded Allergies: Loxapine (Verified Allergy, Mild, 01/21/13) Thiothixene (Verified Allergy, Mild, 01/21/13) Fluphenazine (Verified Allergy, Unknown, 09/12/15) UNKNOWN [place] (Verified Allergy, Unknown, UNKNOWN, 09/12/15) Meperidine (Verified Allergy, Unknown, UNKNOWN, 09/12/15) Phenothiazines (Verified Allergy, Unknown, UNKNOWN, 09/12/15) Thioridazine (Verified Allergy, Unknown, UNKNOWN, 09/12/15) KELVIN GARIBAY MD Feb 14, 2017 16:38
[2017-02-14 18:00] VITALS: BP 101/60
[2017-02-14] MEDS: GABAPENTIN 400 MG CAP PO SCH (20:44)
[2017-02-14] MEDS: MIRTAZAPINE 15 MG TAB PO SCH (20:44)
[2017-02-14] MEDS: VENLAFAXINE **XR** 75MG CAPSULE PO SCH (20:44)
[2017-02-15 06:44] VITALS: BP 130/87
[2017-02-15] MEDS: busPIRone 5 MG TAB PO SCH ×3 (08:29→21:29)
[2017-02-15] MEDS: GABAPENTIN 100 MG CAP PO SCH (08:29)
[2017-02-15] MEDS: BENZTROPINE 0.5 MG TAB PO SCH ×2 (08:29→21:29)
[2017-02-15] MEDS: DOCUSATE SODIUM 100 MG CAP PO SCH ×2 (08:29→21:29)
[2017-02-15] MEDS: NICOTINE 21MG/24HR 1 EA TRANSDERMAL TD SCH (08:29)
[2017-02-15 18:00] VITALS: BP 112/77
[2017-02-15] MEDS: GABAPENTIN 400 MG CAP PO SCH (21:29)
[2017-02-15] MEDS: VENLAFAXINE **XR** 75MG CAPSULE PO SCH (21:29)
[2017-02-15] MEDS: MIRTAZAPINE 15 MG TAB PO SCH (21:30)
[2017-02-15] MEDS: LORazepam 1 MG TAB PO PRN (23:07)
[2017-02-16 07:00] VITALS: BP 123/66
[2017-02-16] MEDS: GABAPENTIN 100 MG CAP PO SCH (07:47)
[2017-02-16] MEDS: busPIRone 5 MG TAB PO SCH ×3 (07:47→20:06)
[2017-02-16] MEDS: DOCUSATE SODIUM 100 MG CAP PO SCH ×2 (07:47→20:06)
[2017-02-16] MEDS: BENZTROPINE 0.5 MG TAB PO SCH ×2 (07:47→20:07)
[2017-02-16] MEDS: NICOTINE 21MG/24HR 1 EA TRANSDERMAL TD SCH (07:47)
[2017-02-16 14:21] VITALS: BP 123/66
[2017-02-16 18:00] VITALS: BP 123/72
[2017-02-16] MEDS: GABAPENTIN 400 MG CAP PO SCH (20:06)
[2017-02-16] MEDS: MIRTAZAPINE 15 MG TAB PO SCH (20:06)
[2017-02-16] MEDS: VENLAFAXINE **XR** 75MG CAPSULE PO SCH (20:07)
[2017-02-16] MEDS: LORazepam 1 MG TAB PO PRN (20:43)
[2017-02-17] MEDS: LORazepam 1 MG TAB PO PRN (05:04)
[2017-02-17] MEDS: GABAPENTIN 100 MG CAP PO SCH (08:18)
[2017-02-17] MEDS: BENZTROPINE 0.5 MG TAB PO SCH ×2 (08:18→22:03)
[2017-02-17] MEDS: DOCUSATE SODIUM 100 MG CAP PO SCH ×2 (08:18→22:03)
[2017-02-17] MEDS: busPIRone 5 MG TAB PO SCH ×3 (08:19→22:04)
[2017-02-17] MEDS: NICOTINE 21MG/24HR 1 EA TRANSDERMAL TD SCH (08:19)
[2017-02-17 18:00] VITALS: BP 124/64
--- NOTE | 2017-02-17 20:59 | IPNPDOC ---
[facility] Progress Note Progress Note DATE OF SERVICE: 02/17/17 HISTORY: Evaluated 51 year old male with history of paranoid schizophrenia who was reported to be aggressive over the weekend.According to Nursing Staff, he stated his name was not Albino, was Mahamed and he got upset when he was re directed and was told he was Albino. Today, he stated he knew he was going to soon because "Im HIV positive and I have cancer". He was told his lab results from previous years are normal, but he states he is very ill. Then, he stated that "somebody" told him last night his girlfriend is , then he started talking about a drug dealer that he knows and that his ex girlfriend used to know. He claims is this drug dealer who wants to kill him and it is because of him, that he doesnt feel safe. He stated he just realized he will never feel safe. VITAL SIGNS: See below. NEW TEST RESULTS: . CURRENT MEDICATIONS: See below. MENTAL STATUS EXAMINATION: Patient is a 51-year old male, who is alert, cooperative but guarded, poor eye contact, poor hygiene. Speech: Tangential. Language skills are poor due to illness. Thought processes including: Not goal directed, irrational. Thought content: Negative for suicidal thoughts, negative for homicidal thouhts , positive for paranoid, persecutory delusions. Although he denies auditory hallucinations he keeps his hands over his ears as if he is trying to keep away the voices. Abstract reasoning, and computation: Poor. Description of associations: Loose. Description of abnormal or psychotic thoughts: Delusional, paranoid, persecutory delusions.Possible auditory hallucinations. Judgment: Poor. Insight: Poor. Orientation: Partially oriented to place and person, not to date or time. Recent and remote memory: Poor. Attention span and concentration: Poor. Language: Poverty of language. Fund of knowledge: Unable to assess. Mood: "I dont feel safe". Affect: Sad, depressed, preoccupied, anxious. DIAGNOSES: 1. Paranoid schizophrenia 2. Major Depressive Disorder. ASSESSMENT:patient got worse over the weekend, most likely due to the agitation of other patients who have displayed threatening behavior. His antipsychotic medication was increased. MANAGEMENT PLAN: Will continue with current treatment and will continue to pursue pts transfer to [place]. TIME SPENT: minutes. Vital Signs Vital Signs Date Time Temp Pulse Resp B/P (MAP) Pulse Ox O2 Delivery O2 Flow Rate FiO2 02/16/17 18:00 97.9 107 16 123/72 (89) Current Medications Current Medications Acetaminophen (Tylenol Tab) 650 mg Q6HP PRN PO HEADACHE or DISCOMFORT Last administered on 02/11/17 23:30; Start 02/03/17 at 15:45; Stop 03/05/17 at 15:44 Al Hydrox/Mg Hydrox/Simethicone (Mylanta) 30 ml Q4HP PRN PO HEARTBURN/ INDIGESTION; Start 02/03/17 at 15:45; Stop 03/05/17 at 15:44 Aripiprazole (AbiLIFY) 2.5 mg QHS PO Last administered on 02/16/17 20:07; Start 02/07/17 at 21:00; Stop 02/17/17 at 12:25; Status DC Aripiprazole (AbiLIFY) 5 mg QHS PO ; Start 02/17/17 at 21:00; Stop 03/19/17 at 20 :59 Benztropine Mesylate (Cogentin) 0.5 mg BID PO Last administered on 02/17/17 08: 18; Start 02/04/17 at 09:00; Stop 03/06/17 at 08:59 Buspirone HCl (Buspar) 7.5 mg TID PO Last administered on 02/17/17 15:31; Start 02/04/17 at 16:00; Stop 03/06/17 at 15:59 Docusate Sodium (Colace) 100 mg BID PO Last administered on 02/17/17 08:18; Start 02/03/17 at 21:00; Stop 03/05/17 at 20:59 Gabapentin (Neurontin) 100 mg QAM PO Last administered on 02/17/17 08:18; Start 02/04/17 at 09:00; Stop 03/06/17 at 08:59 Gabapentin (Neurontin) 400 mg QHS PO Last administered on 02/16/17 20:06; Start 02/04/17 at 21:00; Stop 03/06/17 at 20:59 Haloperidol Decanoate (Haldol Decanoate) 50 mg Q14D@14 IM Last administered on 4/18/17at 14:55; Start 02/04/17 at 14:00; Stop 03/06/17 at 13:59 Home Med (Med Rec Complete!) ASDIRECTED XX ; Start 02/03/17 at 12:15; Stop at 12:15; Status DC Lorazepam (Ativan) 1 mg Q8HP PRN PO ANXIETY/AGITATION Last administered on 05:04; Start 02/03/17 at 15:45; Stop 02/22/17 at 15:44 Magnesium Hydroxide (Milk Of Magnesia) 30 ml DAILYPRN PRN PO CONSTIPATION; Start 02/03/17 at 15:45; Stop 03/05/17 at 15:44 Mirtazapine (Remeron) 15 mg QHS PO Last administered on 02/16/17 20:06; Start 02/04/17 at 21:00; Stop 03/06/17 at 20:59 Nicotine (Nicoderm Cq 21mg) 1 patch DAILY TD Last administered on 02/17/17 08: 19; Start 02/04/17 at 09:00; Stop 03/06/17 at 08:59 Olanzapine (ZyPREXA) 10 mg DAILY PO Last administered on 02/04/17 08:59; Start 02/03/17 at 09:00; Stop 02/04/17 at 14:20; Status DC Quetiapine Fumarate (SEROquel) 200 mg QHS PO ; Start 02/04/17 at 21:00; Stop at 13:42; Status DC Trazodone HCl (Desyrel) 50 mg QHSP PRN PO INSOMNIA; Start 02/03/17 at 16:45; Stop 03/05/17 at 16:44; Status Cancel Venlafaxine HCl (Effexor Xr) 75 mg DAILY PO Last administered on 02/06/17 08:28; Start 02/04/17 at 09:00; Stop 02/06/17 at 18:02; Status DC Venlafaxine HCl (Effexor Xr) 150 mg QHS PO Last administered on 02/16/17 20:07; Start 02/07/17 at 21:00; Stop 03/09/17 at 20:59 Allergies Coded Allergies: Loxapine (Verified Allergy, Mild, 01/21/13) Thiothixene (Verified Allergy, Mild, 01/21/13) Fluphenazine (Verified Allergy, Unknown, 09/12/15) UNKNOWN [place] (Verified Allergy, Unknown, UNKNOWN, 09/12/15) Meperidine (Verified Allergy, Unknown, UNKNOWN, 09/12/15) Phenothiazines (Verified Allergy, Unknown, UNKNOWN, 09/12/15) Thioridazine (Verified Allergy, Unknown, UNKNOWN, 09/12/15) KELVIN GARIBAY MD February 17, 2017 20:59
[2017-02-17] MEDS: GABAPENTIN 400 MG CAP PO SCH (22:03)
[2017-02-17] MEDS: MIRTAZAPINE 15 MG TAB PO SCH (22:03)
[2017-02-17] MEDS: VENLAFAXINE **XR** 75MG CAPSULE PO SCH (22:03)
[2017-02-18] MEDS: busPIRone 5 MG TAB PO SCH ×3 (08:18→20:42)
[2017-02-18] MEDS: NICOTINE 21MG/24HR 1 EA TRANSDERMAL TD SCH (08:19)
[2017-02-18] MEDS: GABAPENTIN 100 MG CAP PO SCH (08:19)
[2017-02-18] MEDS: DOCUSATE SODIUM 100 MG CAP PO SCH ×2 (08:19→20:41)
[2017-02-18] MEDS: BENZTROPINE 0.5 MG TAB PO SCH ×2 (08:20→20:39)
[2017-02-18] MEDS: HALOPERIDOL DECANOATE 100 MG/ML VIAL (J1631) IM SCH (14:10)
[2017-02-18 18:00] VITALS: BP 126/72
[2017-02-18] MEDS ORDERED: HALOPERIDOL DECANOATE 100 MG/ML VIAL (J1631) IM STA (20:24)
--- NOTE | 2017-02-18 20:24 | IPNPDOC ---
[facility] Progress Note Progress Note DATE OF SERVICE: 02/18/17 HISTORY: Evaluated pt. known for paranoid schizophrenia who has constant persecutory delusions who is due today for his Haldol Decanoate 50 mgs. IM dose. He was evaluated in his room where he was seen lying in bed in a semi position, looking sad, anxious. His speech was tangential at times. His thought process is not rational, he ahs bizarre ideas of people coming to the Unit, "people that I know, I dont know how I met him but I know him since he was 15 years old and he is a very dangerous man. He saw me and I saw him. I didn t feel safe when he was here". He has constant thoughts of people with ties to the underworld coming to the [facility] and he states that other people, he cant say who are going into his room to steal his things. VITAL SIGNS: See below. NEW TEST RESULTS: CURRENT MEDICATIONS: See below. MENTAL STATUS EXAMINATION: Patient is a 51-year old male, who is alert, cooperative, with fair eye contact , anxious,. Speech: Is Tangential at times. Language skills are fair. Thought processes including: Not goal directed, irrational. Thought content: Positive for persecutory delusions, paranoid thoughts. Responds to internal stimuli. Visual and auditory hallucinations. Abstract reasoning, and computation: Poor due to mental illness. Description of associations: Not loose. Description of abnormal or psychotic thoughts: Delusional thoughts, persecutory type.Auditory and visual hallucinations Judgment: Poor. Insight: Poor. Orientation: Alert and oriented x 3. Recent and remote memory: Impaired. Attention span and concentration: Poor. Language: Poor. Fund of knowledge: Unable to assess. Mood: "I dont feel safe". Affect: Anxious, depressed. DIAGNOSES: 1. Paranoid schizophrenia. 2. Major Depressive Disorder. ASSESSMENT: Patient continues to have auditory and visual hallucinations ( he sees people coming into his room that steal things from him or he sees people that he believes are dangerous coming to the Unit at visiting hours. He can never provide a name or an identity for this people). Continues to be internally preoccupied. MANAGEMENT PLAN: Will administer Haldol Decanoate 50 mgs. IM today ( is due every 14 days). Will f/u with transfer plan to [place]. TIME SPENT: 15 minutes. Vital Signs Vital Signs Date Time Temp Pulse Resp B/P (MAP) Pulse Ox O2 Delivery O2 Flow Rate FiO2 02/17/17 18:00 98.3 110 18 124/64 (84) Current Medications Current Medications Acetaminophen (Tylenol Tab) 650 mg Q6HP PRN PO HEADACHE or DISCOMFORT Last administered on 02/11/17 23:30; Start 02/03/17 at 15:45; Stop 03/05/17 at 15:44 Al Hydrox/Mg Hydrox/Simethicone (Mylanta) 30 ml Q4HP PRN PO HEARTBURN/ INDIGESTION; Start 02/03/17 at 15:45; Stop 03/05/17 at 15:44 Aripiprazole (AbiLIFY) 2.5 mg QHS PO Last administered on 02/16/17 20:07; Start 02/07/17 at 21:00; Stop 02/17/17 at 12:25; Status DC Aripiprazole (AbiLIFY) 5 mg QHS PO Last administered on 02/17/17 22:03; Start 02/17/17 at 21:00; Stop 03/19/17 at 20:59 Benztropine Mesylate (Cogentin) 0.5 mg BID PO Last administered on 02/18/17 08: 20; Start 02/04/17 at 09:00; Stop 03/06/17 at 08:59 Buspirone HCl (Buspar) 7.5 mg TID PO Last administered on 02/18/17 16:03; Start 02/04/17 at 16:00; Stop 03/06/17 at 15:59 Docusate Sodium (Colace) 100 mg BID PO Last administered on 02/18/17 08:19; Start 02/03/17 at 21:00; Stop 03/05/17 at 20:59 Gabapentin (Neurontin) 100 mg QAM PO Last administered on 02/18/17 08:19; Start 02/04/17 at 09:00; Stop 03/06/17 at 08:59 Gabapentin (Neurontin) 400 mg QHS PO Last administered on 02/17/17 22:03; Start 02/04/17 at 21:00; Stop 03/06/17 at 20:59 Haloperidol Decanoate (Haldol Decanoate) 50 mg Q14D@14 IM Last administered on 02/18/17 14:10; Start 02/04/17 at 14:00; Stop 03/06/17 at 13:59 Home Med (Med Rec Complete!) ASDIRECTED XX ; Start 02/03/17 at 12:15; Stop at 12:15; Status DC Lorazepam (Ativan) 1 mg Q8HP PRN PO ANXIETY/AGITATION Last administered on 05:04; Start 02/03/17 at 15:45; Stop 02/22/17 at 15:44 Magnesium Hydroxide (Milk Of Magnesia) 30 ml DAILYPRN PRN PO CONSTIPATION; Start 02/03/17 at 15:45; Stop 03/05/17 at 15:44 Mirtazapine (Remeron) 15 mg QHS PO Last administered on 02/17/17 22:03; Start 02/04/17 at 21:00; Stop 03/06/17 at 20:59 Nicotine (Nicoderm Cq 21mg) 1 patch DAILY TD Last administered on 02/18/17 08: 19; Start 02/04/17 at 09:00; Stop 03/06/17 at 08:59 Olanzapine (ZyPREXA) 10 mg DAILY PO Last administered on 02/04/17 08:59; Start 02/03/17 at 09:00; Stop 02/04/17 at 14:20; Status DC Quetiapine Fumarate (SEROquel) 200 mg QHS PO ; Start 02/04/17 at 21:00; Stop at 13:42; Status DC Trazodone HCl (Desyrel) 50 mg QHSP PRN PO INSOMNIA; Start 02/03/17 at 16:45; Stop 03/05/17 at 16:44; Status Cancel Venlafaxine HCl (Effexor Xr) 75 mg DAILY PO Last administered on 02/06/17 08:28; Start 02/04/17 at 09:00; Stop 02/06/17 at 18:02; Status DC Venlafaxine HCl (Effexor Xr) 150 mg QHS PO Last administered on 02/17/17 22 :03; Start 02/07/17 at 21:00; Stop 03/09/17 at 20:59 Allergies Coded Allergies: Loxapine (Verified Allergy, Mild, 01/21/13) Thiothixene (Verified Allergy, Mild, 01/21/13) Fluphenazine (Verified Allergy, Unknown, 09/12/15) UNKNOWN [place] (Verified Allergy, Unknown, UNKNOWN, 09/12/15) Meperidine (Verified Allergy, Unknown, UNKNOWN, 09/12/15) Phenothiazines (Verified Allergy, Unknown, UNKNOWN, 09/12/15) Thioridazine (Verified Allergy, Unknown, UNKNOWN, 09/12/15) KELVIN GARIBAY MD February 18, 2017 20:24
[2017-02-18] MEDS: MIRTAZAPINE 15 MG TAB PO SCH (20:39)
[2017-02-18] MEDS: GABAPENTIN 400 MG CAP PO SCH (20:41)
[2017-02-18] MEDS: VENLAFAXINE **XR** 75MG CAPSULE PO SCH (20:41)
[2017-02-19] MEDS: BENZTROPINE 0.5 MG TAB PO SCH ×2 (08:05→19:59)
[2017-02-19] MEDS: busPIRone 5 MG TAB PO SCH ×3 (08:05→19:59)
[2017-02-19] MEDS: DOCUSATE SODIUM 100 MG CAP PO SCH ×2 (08:05→19:59)
[2017-02-19] MEDS: NICOTINE 21MG/24HR 1 EA TRANSDERMAL TD SCH (08:05)
[2017-02-19] MEDS: GABAPENTIN 100 MG CAP PO SCH (08:05)
--- NOTE | 2017-02-19 15:05 | IPNPDOC ---
[facility] Progress Note Progress Note DATE OF SERVICE: 02/19/17 INTERVAL HISTORY: Medication Side effects: Daytime sleepiness due to Haldol decanoate injection yesterday Behavior: Cooperative, guarded, isolated. Group Attendance: [facility] meditation group, yoga group and occasionally process group Psychiatric Symptom change: Continues to be paranoid, scared but hasn't been agitated or aggressive. He continues to be isolated. VITAL SIGNS: See below. NEW TEST RESULTS: See below CURRENT MEDICATIONS: See below. MENTAL STATUS EXAMINATION: General: Alert, cooperative, guarded poor eye contact Speech: Tangential Thought processes: Irrational, not goal-directed Thought content: Paranoid, persecutory delusions. Visual and auditory hallucinations. Helplessness and hopelessness. Abstract reasoning, and computation: Poor Description of associations: Loose Description of abnormal or psychotic thoughts: Delusional, paranoid,, persecutory thoughts and auditory and visual hallucinations. Helplessness, hopelessness. Judgment: Poor Insight: Poor Orientation: Oriented to place and person but not date and time Recent and remote memory: Impaired Attention span and concentration: Poor Fund of knowledge: Unable to assess Mood: "I'm scared" Affect: Anxious, depressed DIAGNOSES: 1. Paranoid schizophrenia. 2. And major depression. ASSESSMENT: Patient doesn't want to take more medications, the author of this document encouraged him to accept Seroquel again but he continues to refuse it. He believes medications haven't helped him through all these years of illness. He has lost hope in regards to his illness and medication response. MANAGEMENT PLAN: Medications: Continue with the current treatment Psychotherapy: Continued to attend groups Social: Encourage him to be more interactive with peers Misc: --- Disposition: Continue at the inpatient mental health unit until he is stabilized or transferred to [place]. TIME SPENT: 15 minutes. Fund of knowledge: . Mood: . Affect: . DIAGNOSES: 1. . 2. . 3. . ASSESSMENT: MANAGEMENT PLAN: . TIME SPENT: minutes. Vital Signs Vital Signs Date Time Temp Pulse Resp B/P (MAP) Pulse Ox O2 Delivery O2 Flow Rate FiO2 02/18/17 18:00 98.0 89 18 126/72 (90) Current Medications Current Medications Acetaminophen (Tylenol Tab) 650 mg Q6HP PRN PO HEADACHE or DISCOMFORT Last administered on 02/11/17t 23:30; Start 02/03/17 at 15:45; Stop 03/05/17 at 15:44 Al Hydrox/Mg Hydrox/Simethicone (Mylanta) 30 ml Q4HP PRN PO HEARTBURN/ INDIGESTION; Start 02/03/17 at 15:45; Stop 03/05/17 at 15:44 Aripiprazole (AbiLIFY) 2.5 mg QHS PO Last administered on 02/16/17 20:07; Start 02/07/17 at 21:00; Stop 02/17/17 at 12:25; Status DC Aripiprazole (AbiLIFY) 5 mg QHS PO Last administered on 02/18/17 20:41; Start 02/17/17 at 21:00; Stop 03/19/17 at 20:59 Benztropine Mesylate (Cogentin) 0.5 mg BID PO Last administered on 02/19/17 08: 05; Start 02/04/17 at 09:00; Stop 03/06/17 at 08:59 Buspirone HCl (Buspar) 7.5 mg TID PO Last administered on 02/19/17 08:05; Start 02/04/17 at 16:00; Stop 03/06/17 at 15:59 Docusate Sodium (Colace) 100 mg BID PO Last administered on 02/19/17 08:05; Start 02/03/17 at 21:00; Stop 03/05/17 at 20:59 Gabapentin (Neurontin) 100 mg QAM PO Last administered on 02/19/17 08:05; Start 02/04/17 at 09:00; Stop 03/06/17 at 08:59 Gabapentin (Neurontin) 400 mg QHS PO Last administered on 02/18/17 20:41; Start 02/04/17 at 21:00; Stop 03/06/17 at 20:59 Haloperidol Decanoate (Haldol Decanoate) 50 mg Q14D STAT IM ; Start 02/18/17 at 20:24; Stop 02/18/17 at 20:25; Status Cancel Haloperidol Decanoate (Haldol Decanoate) 50 mg Q14D@14 IM Last administered on 02/18/17 14:10; Start 02/04/17 at 14:00; Stop 03/06/17 at 13:59 Home Med (Med Rec Complete!) ASDIRECTED XX ; Start 02/03/17 at 12:15; Stop at 12:15; Status DC Lorazepam (Ativan) 1 mg Q8HP PRN PO ANXIETY/AGITATION Last administered on 05:04; Start 02/03/17 at 15:45; Stop 02/22/17 at 15:44 Magnesium Hydroxide (Milk Of Magnesia) 30 ml DAILYPRN PRN PO CONSTIPATION; Start 02/03/17 at 15:45; Stop 03/05/17 at 15:44 Mirtazapine (Remeron) 15 mg QHS PO Last administered on 02/18/17 20:39; Start 02/04/17 at 21:00; Stop 03/06/17 at 20:59 Nicotine (Nicoderm Cq 21mg) 1 patch DAILY TD Last administered on 02/19/17 08: 05; Start 02/04/17 at 09:00; Stop 03/06/17 at 08:59 Olanzapine (ZyPREXA) 10 mg DAILY PO Last administered on 02/04/17 08:59; Start 02/03/17 at 09:00; Stop 02/04/17 at 14:20; Status DC Quetiapine Fumarate (SEROquel) 200 mg QHS PO ; Start 02/04/17 at 21:00; Stop at 13:42; Status DC Trazodone HCl (Desyrel) 50 mg QHSP PRN PO INSOMNIA; Start 02/03/17 at 16:45; Stop 03/05/17 at 16:44; Status Cancel Venlafaxine HCl (Effexor Xr) 75 mg DAILY PO Last administered on 02/06/17 08:28; Start 02/04/17 at 09:00; Stop 02/06/17 at 18:02; Status DC Venlafaxine HCl (Effexor Xr) 150 mg QHS PO Last administered on 02/18/17 20 :41; Start 02/07/17 at 21:00; Stop 03/09/17 at 20:59 Allergies Coded Allergies: Loxapine (Verified Allergy, Mild, 01/21/13) Thiothixene (Verified Allergy, Mild, 01/21/13) Fluphenazine (Verified Allergy, Unknown, 09/12/15) UNKNOWN [place] (Verified Allergy, Unknown, UNKNOWN, 09/12/15) Meperidine (Verified Allergy, Unknown, UNKNOWN, 09/12/15) Phenothiazines (Verified Allergy, Unknown, UNKNOWN, 09/12/15) Thioridazine (Verified Allergy, Unknown, UNKNOWN, 09/12/15) KELVIN GARIBAY MD February 19, 2017 15:05
[2017-02-19] MEDS: VENLAFAXINE **XR** 75MG CAPSULE PO SCH (19:58)
[2017-02-19] MEDS: GABAPENTIN 400 MG CAP PO SCH (19:59)
[2017-02-19] MEDS: MIRTAZAPINE 15 MG TAB PO SCH (19:59)
[2017-02-20] MEDS: LORazepam 1 MG TAB PO PRN ×2 (00:46→23:45)
[2017-02-20] MEDS: NICOTINE 21MG/24HR 1 EA TRANSDERMAL TD SCH (08:06)
[2017-02-20] MEDS: DOCUSATE SODIUM 100 MG CAP PO SCH ×2 (08:07→21:42)
[2017-02-20] MEDS: GABAPENTIN 100 MG CAP PO SCH (08:07)
[2017-02-20] MEDS: busPIRone 5 MG TAB PO SCH ×3 (08:07→21:42)
[2017-02-20] MEDS: BENZTROPINE 0.5 MG TAB PO SCH ×2 (08:07→21:42)
--- NOTE | 2017-02-20 10:17 | IPNPDOC ---
[facility] Progress Note Progress Note DATE OF SERVICE: 02/20/17 INTERVAL HISTORY: Medication Side effects: He denies medication side effects, this is the second day after he was given 50 mg IM of Haldol Decanoate Behavior: Remains in his room, doesn't engage much with staff or patients. Continues to be guarded. Group Attendance: Attends yoga and meditation groups and occasionally attends processes group. Psychiatric Symptom change: He is more verbal about his feelings and emotions, but continues to be guarded and delusional. VITAL SIGNS: See below. NEW TEST RESULTS: See below CURRENT MEDICATIONS: See below. MENTAL STATUS EXAMINATION: General: Alert, cooperative, sleepy, poor eye contact. Speech: Tangential at times Thought processes: Not goal directed, fixated on "where am I going to go now? What is going to happen to me?" Thought content: Negative for homicidal ideation, negative for suicidal ideation , positive for delusional thoughts, positive for auditory and visual hallucinations, hopelessness, helplessness. Abstract reasoning, and computation: Impaired Description of associations: Loose at times Description of abnormal or psychotic thoughts: Delusional thoughts, paranoid, persecutory type. Judgment: Poor Insight: poor Orientation: Partially oriented to date and time and fully oriented to place and person Recent and remote memory: Impaired Attention span and concentration: Poor Fund of knowledge: Unable to assess Mood: Progress Affect: Anxious, depressed DIAGNOSES: 1. Paranoid schizophrenia. 2. And major depressive episode. 3. Anxiety. ASSESSMENT: Patient is to be stabilized, he is still delusional. MANAGEMENT PLAN: Will continue to make arrangements for him to be transferred to [place] Medications: We will continue the same medications Psychotherapy: Will be encouraged to attend groups Social: Will encouraged him to interact more with peers and staff, but he is still very scared due to his paranoid delusions, so this will take some time Misc: None Disposition: Inpatient mental health unit, until he gets transferred to [place] TIME SPENT: 20 minutes. Vital Signs Vital Signs Date Time Temp Pulse Resp B/P (MAP) Pulse Ox O2 Delivery O2 Flow Rate FiO2 02/18/17 18:00 98.0 89 18 126/72 (90) Current Medications Current Medications Acetaminophen (Tylenol Tab) 650 mg Q6HP PRN PO HEADACHE or DISCOMFORT Last administered on 02/11/17t 23:30; Start 02/03/17 at 15:45; Stop 03/05/17 at 15:44 Al Hydrox/Mg Hydrox/Simethicone (Mylanta) 30 ml Q4HP PRN PO HEARTBURN/ INDIGESTION; Start 02/03/17 at 15:45; Stop 03/05/17 at 15:44 Aripiprazole (AbiLIFY) 2.5 mg QHS PO Last administered on 02/16/17 20:07; Start 02/07/17 at 21:00; Stop 02/17/17 at 12:25; Status DC Aripiprazole (AbiLIFY) 5 mg QHS PO Last administered on 02/19/17 19:59; Start 02/17/17 at 21:00; Stop 03/19/17 at 20:59 Benztropine Mesylate (Cogentin) 0.5 mg BID PO Last administered on 02/20/17 08: 07; Start 02/04/17 at 09:00; Stop 03/06/17 at 08:59 Buspirone HCl (Buspar) 7.5 mg TID PO Last administered on 02/20/17 08:07; Start 02/04/17 at 16:00; Stop 03/06/17 at 15:59 Docusate Sodium (Colace) 100 mg BID PO Last administered on 02/20/17 08:07; Start 02/03/17 at 21:00; Stop 03/05/17 at 20:59 Gabapentin (Neurontin) 100 mg QAM PO Last administered on 02/20/17 08:07; Start 02/04/17 at 09:00; Stop 03/06/17 at 08:59 Gabapentin (Neurontin) 400 mg QHS PO Last administered on 02/19/17 19:59; Start 02/04/17 at 21:00; Stop 03/06/17 at 20:59 Haloperidol Decanoate (Haldol Decanoate) 50 mg Q14D STAT IM ; Start 02/18/17 at 20:24; Stop 02/18/17 at 20:25; Status Cancel Haloperidol Decanoate (Haldol Decanoate) 50 mg Q14D@14 IM Last administered on 02/18/17 14:10; Start 02/04/17 at 14:00; Stop 03/06/17 at 13:59 Home Med (Med Rec Complete!) ASDIRECTED XX ; Start 02/03/17 at 12:15; Stop at 12:15; Status DC Lorazepam (Ativan) 1 mg Q8HP PRN PO ANXIETY/AGITATION Last administered on 00:46; Start 02/03/17 at 15:45; Stop 02/22/17 at 15:44 Magnesium Hydroxide (Milk Of Magnesia) 30 ml DAILYPRN PRN PO CONSTIPATION; Start 02/03/17 at 15:45; Stop 03/05/17 at 15:44 Mirtazapine (Remeron) 15 mg QHS PO Last administered on 02/19/17 19:59; Start 02/04/17 at 21:00; Stop 03/06/17 at 20:59 Nicotine (Nicoderm Cq 21mg) 1 patch DAILY TD Last administered on 02/20/17 08: 06; Start 02/04/17 at 09:00; Stop 03/06/17 at 08:59 Olanzapine (ZyPREXA) 10 mg DAILY PO Last administered on 02/04/17 08:59; Start 02/03/17 at 09:00; Stop 02/04/17 at 14:20; Status DC Quetiapine Fumarate (SEROquel) 200 mg QHS PO ; Start 02/04/17 at 21:00; Stop at 13:42; Status DC Trazodone HCl (Desyrel) 50 mg QHSP PRN PO INSOMNIA; Start 02/03/17 at 16:45; Stop 03/05/17 at 16:44; Status Cancel Venlafaxine HCl (Effexor Xr) 75 mg DAILY PO Last administered on 02/06/17 08:28; Start 02/04/17 at 09:00; Stop 02/06/17 at 18:02; Status DC Venlafaxine HCl (Effexor Xr) 150 mg QHS PO Last administered on 02/19/17 19 :58; Start 02/07/17 at 21:00; Stop 03/09/17 at 20:59 Allergies Coded Allergies: Loxapine (Verified Allergy, Mild, 01/21/13) Thiothixene (Verified Allergy, Mild, 4/4/13) Fluphenazine (Verified Allergy, Unknown, 09/12/15) UNKNOWN [place] (Verified Allergy, Unknown, UNKNOWN, 09/12/15) Meperidine (Verified Allergy, Unknown, UNKNOWN, 09/12/15) Phenothiazines (Verified Allergy, Unknown, UNKNOWN, 09/12/15) Thioridazine (Verified Allergy, Unknown, UNKNOWN, 09/12/15) KELVIN GARIBAY MD February 20, 2017 10:17
[2017-02-20] MEDS ORDERED: diphenhydrAMINE 50 MG CAP PO ONE (11:45)
[2017-02-20] MEDS ORDERED: LORazepam 2 MG TAB PO ONE (11:45)
[2017-02-20 21:29] VITALS: BP 118/77
[2017-02-20] MEDS: GABAPENTIN 400 MG CAP PO SCH (21:42)
[2017-02-20] MEDS: MIRTAZAPINE 15 MG TAB PO SCH (21:42)
[2017-02-20] MEDS: VENLAFAXINE **XR** 75MG CAPSULE PO SCH (21:42)
[2017-02-21 06:33] VITALS: BP 157/94
[2017-02-21] MEDS: NICOTINE 21MG/24HR 1 EA TRANSDERMAL TD SCH (08:04)
[2017-02-21] MEDS: busPIRone 5 MG TAB PO SCH ×3 (08:04→20:12)
[2017-02-21] MEDS: DOCUSATE SODIUM 100 MG CAP PO SCH ×2 (08:04→20:11)
[2017-02-21] MEDS: GABAPENTIN 100 MG CAP PO SCH (08:04)
[2017-02-21] MEDS: BENZTROPINE 0.5 MG TAB PO SCH ×2 (08:04→20:12)
[2017-02-21] MEDS: VENLAFAXINE **XR** 75MG CAPSULE PO SCH (20:11)
[2017-02-21] MEDS: GABAPENTIN 400 MG CAP PO SCH (20:12)
[2017-02-21] MEDS: MIRTAZAPINE 15 MG TAB PO SCH (20:12)
--- NOTE | 2017-02-22 05:33 | IPN ---
DATE OF SERVICE: 02/21/2017 Albino Dailey, the patient, has a longstanding history of paranoid schizophrenia and constant persecutory delusions. He received recently his Haldol Decanoate 50 mg intramuscular (IM) dose on 02/18/2017. He has not reported medication side effect; however, he remains paranoid stating that a person wanted to nut picker a fight with him yesterday night at the inpatient mental health unit because he wanted to use the telephone and the other person did not want to get off the telephone. After he was waiting for a long time, he asked his peer to please let him use the phone and he states that his peer dropped the phone and threatened him. Albino feels threatened by almost everyone, he never feels safe in any place, he believes that people are after him that want to kill him and actually he sees people that enter his room and are trying to kill him. Those are the same visions, the same visual hallucinations that he had while he was living in his apartment at [facility]. Recently, he reported that his girlfriend of 14 years has and that he got to know this through a telephone conversation with someone. When he was asked who this person was, he stated I do not remember. When he has been asked who are the people that wanted to kill him, he always asks I do not know or I do not remember. Today, he was seen alert, partially oriented only to person and place, but not to date and time. His speech is not circumstantial, but it is spoken in broken sentences and he is tangential. His though process is disorganized. His thought content is positive for paranoid, persecutory delusions, positive for auditory and visual hallucinations, negative for homicidal ideation and negative for suicidal ideation. His mood and affect are depressed/anxious. He is guarded, has very poor eye contact and he is evidently preoccupied with his persecutory delusions. His attention and concentration are poor, his memory is impaired, his fund of knowledge was not assessed because he has poverty of language and he does not express much of his feelings or what is in his mind. His judgment and insight are very poor. His impulse control has been fair up until this moment. He is currently on: - Abilify 5 mg by mouth nightly - he is on Cogentin 0.5 mg twice a day - BuSpar 7.5 mg three times a day - gabapentin 100 mg every morning and 400 mg every night - he has lorazepam 1 mg every 8 hours as needed for anxiety and agitation - Remeron 15 mg nightly - he has been refusing Seroquel, so it was discontinued and instead he was placed on Abilify - he uses venlafaxine, that is his antidepressant 75 mg daily by mouth and 150 mg nightly by mouth - he also uses trazodone or Desyrel 50 mg nightly as needed for insomnia The plan for this patient is to continue the arrangement for transfer to [place] for long-term treatment hospitalization. The patient has agreed upon that treatment plan and he wants to come back to live in [place]. He does not want to go back to [facility], so he has been told that most likely major case detective at [place] will try to transfer him to transitional living services ([facility]) in [place] once he gets discharged from [place]. He is happy with those arrangements. At the present time, we shall continue with the current treatment and will continue to followup for stabilization. Will continue to followup until he is more stable.
[2017-02-22] MEDS: DOCUSATE SODIUM 100 MG CAP PO SCH ×2 (08:36→21:32)
[2017-02-22] MEDS: BENZTROPINE 0.5 MG TAB PO SCH ×2 (08:36→21:32)
[2017-02-22] MEDS: GABAPENTIN 100 MG CAP PO SCH (08:36)
[2017-02-22] MEDS: busPIRone 5 MG TAB PO SCH ×3 (08:36→21:32)
[2017-02-22] MEDS: NICOTINE 21MG/24HR 1 EA TRANSDERMAL TD SCH (08:36)
[2017-02-22 18:00] VITALS: BP 130/84
--- NOTE | 2017-02-22 21:30 | IPN ---
There is no dictation for this report. 02/21/17 Progress Note Patients Name: Albino Dailey Evaluated 51 year old male with longstanding history of paranoid schizophrenia who has been admitted several times to the [facility]. On this last admission he verbalized that he was being followed by several people who wanted to kill him and that they were part of a criminal network, that they tried to kill him in [facility]. He has verbalized several times that he has never felt safe and that, occasionally he has felt safe at the [facility], but later he states that peers have threatened him. He continues to be very guarded, with difficulty to engage , remains in his room, attends only the meditation group at times and occasionally the yoga class and some other groups. He keeps laying in bed in a semi position,without sheets or blankets. His eye contact is poor, cooperative but very guarded and irritable. His thought process is tangential, thought content is positive for paranoid, persecutory delusions, auditory and visual hallucinations. Responds to internal stimuli. Judgement, insight, memory are impaired. Attention span and concentration are poor. Oriented only to place and person. Fund of knowledge, unable to assess. Patient has become increasingly scared and this probably has something to do with the aggressive behavior displayed by other patients. Will continue to observe and if no improvement is perceived, medications will be increased. Unfortunately he has refused to keep taking Seroquel and he has verbalized feeling hopeless about medications, because he thinks he has taken them for so many years and he hasnt improved. Will follow up closely. If no improvement, will increase Abilify and Venlafaxine. TERRANCE
[2017-02-22] MEDS: GABAPENTIN 400 MG CAP PO SCH (21:32)
[2017-02-22] MEDS: MIRTAZAPINE 15 MG TAB PO SCH (21:32)
[2017-02-22] MEDS: VENLAFAXINE **XR** 75MG CAPSULE PO SCH (21:32)
[2017-02-23] MEDS: LORazepam 1 MG TAB PO PRN ×2 (02:56→18:21)
[2017-02-23] MEDS: GABAPENTIN 100 MG CAP PO SCH (08:43)
[2017-02-23] MEDS: DOCUSATE SODIUM 100 MG CAP PO SCH ×2 (08:43→21:05)
[2017-02-23] MEDS: BENZTROPINE 0.5 MG TAB PO SCH (08:43)
[2017-02-23] MEDS: busPIRone 5 MG TAB PO SCH ×3 (08:44→21:06)
[2017-02-23] MEDS: NICOTINE 21MG/24HR 1 EA TRANSDERMAL TD SCH (08:44)
[2017-02-23] MEDS: BENZTROPINE 1 MG TAB PO SCH ×2 (13:47→21:06)
[2017-02-23 18:00] VITALS: BP 115/76
[2017-02-23] MEDS: VENLAFAXINE **XR** 75MG CAPSULE PO SCH (21:05)
[2017-02-23] MEDS: MIRTAZAPINE 15 MG TAB PO SCH (21:06)
[2017-02-23] MEDS: GABAPENTIN 400 MG CAP PO SCH (21:07)
[2017-02-24] MEDS: GABAPENTIN 100 MG CAP PO SCH (08:14)
[2017-02-24] MEDS: DOCUSATE SODIUM 100 MG CAP PO SCH ×2 (08:14→20:52)
[2017-02-24] MEDS: BENZTROPINE 1 MG TAB PO SCH ×2 (08:14→20:52)
[2017-02-24] MEDS: NICOTINE 21MG/24HR 1 EA TRANSDERMAL TD SCH (08:14)
[2017-02-24] MEDS: busPIRone 5 MG TAB PO SCH ×3 (08:14→20:53)
[2017-02-24 18:00] VITALS: BP 109/64
--- NOTE | 2017-02-24 20:20 | IPN ---
DATE: 02/24/2017 The patient was evaluated today, 02/24/2017. He was seen in his room lying on his bed. Despite that he has been given, several times, sheets to change his bed or to cover him, he continues to not use them. He was seen in a semi position lying on his bed, not willing to engage. He says that he would rather sleep. 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 He did not want to talk to anybody. He kicked people out of his room. He has a long standing history of paranoid schizophrenia and currently has been treated with venlafaxine, Abilify, trazodone, gabapentin, Haldol decanoate, Ativan, but he was on a low dose of Abilify, only 5 mg today and this dose was increased to 7.5 mg by mouth twice a day, and the dose of venlafaxine was increased to 300 mg by mouth daily. He received his Haldol decanoate dose last week intramuscularly, but he has not shown any improvement, instead he has been regressing, and he has been seen for decompensating, most likely due to the activity in the unit from other patients since other patients have been agitated and apparently has triggered a lot of fear in him. He continues to report to staff that he sees people come into his room, stealing his clothes without his permission or that some other patients are threatening him and nursing staff reports that they have not seen any abnormal behavior from other patients towards him. He is on a waiting list to be transferred to [facility] for long-term treatment and hopefully once he gets accepted then he will be transferred back to [facility] ([facility]) and he will be able to live in [place] because he refuses to go back to [place], since he felt threatened there and he claims that there were people that wanted to kill him, but this is the same story that repeats every day. He believes that there are people that are out to get him and they want to kill him and hurt him. Hopefully, with increasing the Abilify and venlafaxine, we will see an improvement in his mood and his psychosis. He continues to refuse to go back to [facility]. The author of this document documented it, but he was stable on it. He still refuses to take more medications and he is hopeless about what this can do to his mood, behavior and his mind. He thinks that he has no hope because he has taken them for such a long time. We will continue to assess and to keep him under close observation.
[2017-02-24] MEDS: GABAPENTIN 400 MG CAP PO SCH (20:52)
[2017-02-24] MEDS: LORazepam 1 MG TAB PO PRN (20:52)
[2017-02-24] MEDS: MIRTAZAPINE 15 MG TAB PO SCH (20:52)
[2017-02-24] MEDS: VENLAFAXINE 37.5 MG TAB PO SCH (20:52)
[2017-02-24] MEDS: ARIPiprazole 15 MG TAB (AbiLIFY) PO SCH (20:53)
[2017-02-25 06:20] VITALS: BP 99/54
[2017-02-25] MEDS: DOCUSATE SODIUM 100 MG CAP PO SCH ×2 (08:02→21:16)
[2017-02-25] MEDS: NICOTINE 21MG/24HR 1 EA TRANSDERMAL TD SCH (08:02)
[2017-02-25] MEDS: VENLAFAXINE 37.5 MG TAB PO SCH ×2 (08:02→21:15)
[2017-02-25] MEDS: ARIPiprazole 15 MG TAB (AbiLIFY) PO SCH (08:02)
[2017-02-25] MEDS: BENZTROPINE 1 MG TAB PO SCH ×2 (08:02→21:15)
[2017-02-25] MEDS: busPIRone 5 MG TAB PO SCH ×3 (08:02→21:16)
[2017-02-25] MEDS: GABAPENTIN 100 MG CAP PO SCH (12:17)
--- NOTE | 2017-02-25 12:45 | MHIPNPDOC ---
[facility] Progress Note Progress Note DATE OF SERVICE: 02/25/17 INTERVAL HISTORY: Medication Side effects: Denies Behavior: Guarded, remains in his room for most part of the day. He is cooperative. Group Attendance:irregular Psychiatric Symptom change: continues to be internally preoccupied, anxious and depressed. VITAL SIGNS: See below. NEW TEST RESULTS: See below CURRENT MEDICATIONS: See below. MENTAL STATUS EXAMINATION: General:Alert, good poor eye contact, guarded. Speech: Tangential Thought processes: Disorganized, not goal directed Thought content: He states that he is not having visual or auditory hallucinations. Denies suicidal ideation, denies homicidal ideation but he responds to internal stimuli Abstract reasoning, and computation: Poor Description of associations: Not loose Description of abnormal or psychotic thoughts: Delusional thoughts, paranoid and persecutory type Judgment: Poor Insight: Poor Orientation: Oriented to place and person only Recent and remote memory: Poor Attention span and concentration: Poor Fund of knowledge: Limited Mood: Depressed, anxious Affect: Irritable, depressed, anxious DIAGNOSES: 1. Paranoid schizophrenia. 2. Major depressive disorder. ASSESSMENT: Patient's medications have been readjusted Abilify was increased to 10 mg by mouth twice a day because he has decompensated while being a at the inpatient mental health unit due to other patients aggressiveness. These have made him feel unsafe. We will follow-up and we will readjust medications again if necessary. MANAGEMENT PLAN: Medications: Continue with current treatment Psychotherapy: Will encourage him to keep attending the yoga class and the medication group. Social: Will encourage him to engage more with peers and staff. Misc: None Disposition: Will continue hospitalization at the inpatient mental health unit until he gets transferred to [place]. TIME SPENT: 15 minutes. Vital Signs Vital Signs Date Time Temp Pulse Resp B/P (MAP) Pulse Ox O2 Delivery O2 Flow Rate FiO2 02/25/17 06:20 98.0 75 16 99/54 (69) Current Medications Current Medications Acetaminophen (Tylenol Tab) 650 mg Q6HP PRN PO HEADACHE or DISCOMFORT Last administered on 02/11/17t 23:30; Start 02/03/17 at 15:45; Stop 03/05/17 at 15:44 Al Hydrox/Mg Hydrox/Simethicone (Mylanta) 30 ml Q4HP PRN PO HEARTBURN/ INDIGESTION; Start 02/03/17 at 15:45; Stop 03/05/17 at 15:44 Aripiprazole (AbiLIFY) 2.5 mg QHS PO Last administered on 02/16/17 20:07; Start 02/07/17 at 21:00; Stop 02/17/17 at 12:25; Status DC Aripiprazole (AbiLIFY) 5 mg QHS PO Last administered on 02/23/17 21:06; Start 02/17/17 at 21:00; Stop 02/24/17 at 17:48; Status DC Aripiprazole (AbiLIFY) 7.5 mg BID PO Last administered on 02/25/17 08:02; Start 02/24/17 at 21:00; Stop 02/25/17 at 11:54; Status DC Aripiprazole (AbiLIFY) 10 mg BID PO ; Start 02/25/17 at 21:00; Stop 03/27/17 at 20 :59 Benztropine Mesylate (Cogentin) 0.5 mg BID PO Last administered on 02/23/17 08: 43; Start 02/04/17 at 09:00; Stop 02/23/17 at 13:41; Status DC Benztropine Mesylate (Cogentin) 1 mg BID PO Last administered on 02/25/17 08:02 ; Start 02/23/17 at 09:00; Stop 03/25/17 at 08:59 Buspirone HCl (Buspar) 7.5 mg TID PO Last administered on 02/25/17 08:02; Start 02/04/17 at 16:00; Stop 03/06/17 at 15:59 Docusate Sodium (Colace) 100 mg BID PO Last administered on 02/25/17 08:02; Start 02/03/17 at 21:00; Stop 03/05/17 at 20:59 Gabapentin (Neurontin) 100 mg QAM PO Last administered on 02/24/17 08:14; Start 02/04/17 at 09:00; Stop 02/24/17 at 17:59; Status DC Gabapentin (Neurontin) 200 mg QAM PO Last administered on 02/25/17 12:17; Start 02/25/17 at 09:00; Stop 03/27/17 at 08:59 Gabapentin (Neurontin) 400 mg QHS PO Last administered on 02/24/17 20:52; Start 02/04/17 at 21:00; Stop 03/06/17 at 20:59 Haloperidol Decanoate (Haldol Decanoate) 50 mg Q14D STAT IM ; Start 02/18/17 at 20:24; Stop 02/18/17 at 20:25; Status Cancel Haloperidol Decanoate (Haldol Decanoate) 50 mg Q14D@14 IM Last administered on 02/18/17 14:10; Start 02/04/17 at 14:00; Stop 03/06/17 at 13:59 Home Med (Med Rec Complete!) ASDIRECTED XX ; Start 02/03/17 at 12:15; Stop at 12:15; Status DC Lorazepam (Ativan) 1 mg Q8HP PRN PO ANXIETY/AGITATION Last administered on 20:52; Start 02/03/17 at 15:45; Stop 02/28/17 at 15:44 Magnesium Hydroxide (Milk Of Magnesia) 30 ml DAILYPRN PRN PO CONSTIPATION; Start 02/03/17 at 15:45; Stop 03/05/17 at 15:44 Mirtazapine (Remeron) 15 mg QHS PO Last administered on 02/24/17 20:52; Start 02/04/17 at 21:00; Stop 03/06/17 at 20:59 Nicotine (Nicoderm Cq 21mg) 1 patch DAILY TD Last administered on 02/25/17 08: 02; Start 02/04/17 at 09:00; Stop 03/06/17 at 08:59 Olanzapine (ZyPREXA) 10 mg DAILY PO Last administered on 02/04/17 08:59; Start 02/03/17 at 09:00; Stop 02/04/17 at 14:20; Status DC Quetiapine Fumarate (SEROquel) 200 mg QHS PO ; Start 02/04/17 at 21:00; Stop at 13:42; Status DC Trazodone HCl (Desyrel) 50 mg QHSP PRN PO INSOMNIA; Start 02/03/17 at 16:45; Stop 03/05/17 at 16:44; Status Cancel Venlafaxine HCl (Effexor Xr) 75 mg DAILY PO Last administered on 02/06/17 08:28; Start 02/04/17 at 09:00; Stop 02/06/17 at 18:02; Status DC Venlafaxine HCl (Effexor Xr) 150 mg QHS PO Last administered on 02/23/17 21 :05; Start 02/07/17 at 21:00; Stop 02/24/17 at 17:59; Status DC Venlafaxine HCl (Effexor) 150 mg BID PO Last administered on 02/25/17 08:02; Start 02/24/17 at 21:00; Stop 03/26/17 at 20:59 Allergies Coded Allergies: Loxapine (Verified Allergy, Mild, 01/21/13) Thiothixene (Verified Allergy, Mild, 01/21/13) Fluphenazine (Verified Allergy, Unknown, 09/12/15) UNKNOWN [place] (Verified Allergy, Unknown, UNKNOWN, 09/12/15) Meperidine (Verified Allergy, Unknown, UNKNOWN, 09/12/15) Phenothiazines (Verified Allergy, Unknown, UNKNOWN, 09/12/15) Thioridazine (Verified Allergy, Unknown, UNKNOWN, 09/12/15) KELVIN GARIBAY MD February 25, 2017 12:45
[2017-02-25 18:36] VITALS: BP 100/51
[2017-02-25] MEDS: ARIPiprazole 10 MG TAB PO SCH (21:15)
[2017-02-25] MEDS: GABAPENTIN 400 MG CAP PO SCH (21:15)
[2017-02-25] MEDS: MIRTAZAPINE 15 MG TAB PO SCH (21:16)
[2017-02-26] MEDS: DOCUSATE SODIUM 100 MG CAP PO SCH ×2 (08:02→20:51)
[2017-02-26] MEDS: NICOTINE 21MG/24HR 1 EA TRANSDERMAL TD SCH (08:02)
[2017-02-26] MEDS: BENZTROPINE 1 MG TAB PO SCH ×2 (08:03→20:51)
[2017-02-26] MEDS: VENLAFAXINE 37.5 MG TAB PO SCH ×2 (08:03→20:51)
[2017-02-26] MEDS: ARIPiprazole 10 MG TAB PO SCH ×2 (08:03→20:51)
[2017-02-26] MEDS: GABAPENTIN 100 MG CAP PO SCH (08:03)
[2017-02-26] MEDS: busPIRone 5 MG TAB PO SCH (08:04)
--- NOTE | 2017-02-26 13:27 | MHIPNPDOC ---
[facility] Progress Note Progress Note DATE OF SERVICE: 02/26/17 INTERVAL HISTORY: Medication Side effects: Denies medication side effects, but he says he cannot sleep. Behavior: Not aggressive, not violent but he is still very suspicious, guarded and paranoid Group Attendance: Very irregular. Psychiatric Symptom change: He is less withdrawn, comes out of his room although he is still psychotic and has paranoid delusions. His anxiety level is very high and he continues to be depressed. VITAL SIGNS: See below. NEW TEST RESULTS: See below CURRENT MEDICATIONS: See below. MENTAL STATUS EXAMINATION: General: Alert, poor eye contact, guarded and suspicious Speech: Tangential Thought processes: Disorganized Thought content: Negative for homicidal ideation, negative for suicidal ideation but he continues to have paranoid, persecutory delusions and auditory and visual hallucinations. Perseverates on feeling unsafe. Responds to internal stimuli Abstract reasoning, and computation: Poor Description of associations: Loose Description of abnormal or psychotic thoughts: Delusional, paranoid persecutory type. Most likely auditory and visual hallucinations although he denies that. Judgment: Poor Insight: Poor Orientation: Oriented to place and person only Recent and remote memory: Poor Attention span and concentration: Poor Fund of knowledge: Full Mood: "When are you cannot take me out of here.? " Yes, I feel threatened" Affect: Anxious, sad and constricted DIAGNOSES: 1. Paranoid schizophrenia. 2. And major depressive disorder ASSESSMENT: Patient has become more paranoid but he is medication was increased yesterday to 10 mg by mouth twice a day of Abilify and venlafaxine was increased 2 days ago to 150 mg by mouth twice a day. Today, BuSpar was discontinued and instead he will be receiving Ativan 1 mg by mouth twice a day. His previous dose of Ativan 1 mg every 8 hours when necessary for anxiety has being discontinued. Will reassess for medication response/side effects. MANAGEMENT PLAN: Medications: Venlafaxine 150 mg by mouth twice a day for depression and anxiety , Abilify 10 mg by mouth twice a day for psychosis and to boost the antidepressant effect of venlafaxine. Ativan 1 mg by mouth 3 times a day, Remeron 15 mg by mouth daily at bedtime and Cogentin. Psychotherapy: We'll continue to encourage him to attend groups but because he has become more psychotic and more paranoid he will avoid them until he feels safer and doesn't feel threatened anymore Social: Will encourage him to interact with peers and staff but at this time due to his paranoia he won't be able to do it Misc: None Disposition: He will continue at the inpatient mental health unit until [place] has a bed available for him. TIME SPENT: 15 minutes. Vital Signs Vital Signs Date Time Temp Pulse Resp B/P (MAP) Pulse Ox O2 Delivery O2 Flow Rate FiO2 02/25/17 18:36 98.9 83 16 100/51 (67) Current Medications Current Medications Acetaminophen (Tylenol Tab) 650 mg Q6HP PRN PO HEADACHE or DISCOMFORT Last administered on 02/11/17 23:30; Start 02/03/17 at 15:45; Stop 03/05/17 at 15:44 Al Hydrox/Mg Hydrox/Simethicone (Mylanta) 30 ml Q4HP PRN PO HEARTBURN/ INDIGESTION; Start 02/03/17 at 15:45; Stop 03/05/17 at 15:44 Aripiprazole (AbiLIFY) 2.5 mg QHS PO Last administered on 02/16/17 20:07; Start 02/07/17 at 21:00; Stop 02/17/17 at 12:25; Status DC Aripiprazole (AbiLIFY) 5 mg QHS PO Last administered on 02/23/17 21:06; Start 02/17/17 at 21:00; Stop 02/24/17 at 17:48; Status DC Aripiprazole (AbiLIFY) 7.5 mg BID PO Last administered on 02/25/17 08:02; Start 02/24/17 at 21:00; Stop 02/25/17 at 11:54; Status DC Aripiprazole (AbiLIFY) 10 mg BID PO Last administered on 02/26/17 08:03; Start 02/25/17 at 21:00; Stop 03/27/17 at 20:59 Benztropine Mesylate (Cogentin) 0.5 mg BID PO Last administered on 02/23/17 08: 43; Start 02/04/17 at 09:00; Stop 02/23/17 at 13:41; Status DC Benztropine Mesylate (Cogentin) 1 mg BID PO Last administered on 02/26/17 08: 03; Start 02/23/17 at 09:00; Stop 03/25/17 at 08:59 Buspirone HCl (Buspar) 7.5 mg TID PO Last administered on 02/26/17 08:04; Start 02/04/17 at 16:00; Stop 03/06/17 at 15:59 Docusate Sodium (Colace) 100 mg BID PO Last administered on 02/26/17 08:02; Start 02/03/17 at 21:00; Stop 03/05/17 at 20:59 Gabapentin (Neurontin) 100 mg QAM PO Last administered on 02/24/17 08:14; Start 02/04/17 at 09:00; Stop 02/24/17 at 17:59; Status DC Gabapentin (Neurontin) 200 mg QAM PO Last administered on 02/26/17 08:03; Start 02/25/17 at 09:00; Stop 03/27/17 at 08:59 Gabapentin (Neurontin) 400 mg QHS PO Last administered on 02/25/17 21:15; Start 02/04/17 at 21:00; Stop 03/06/17 at 20:59 Haloperidol Decanoate (Haldol Decanoate) 50 mg Q14D STAT IM ; Start 02/18/17 at 20:24; Stop 02/18/17 at 20:25; Status Cancel Haloperidol Decanoate (Haldol Decanoate) 50 mg Q14D@14 IM Last administered on 02/18/17 14:10; Start 02/04/17 at 14:00; Stop 03/06/17 at 13:59 Home Med (Med Rec Complete!) ASDIRECTED XX ; Start 02/03/17 at 12:15; Stop at 12:15; Status DC Lorazepam (Ativan) 1 mg Q8HP PRN PO ANXIETY/AGITATION Last administered on 20:52; Start 02/03/17 at 15:45; Stop 02/28/17 at 15:44 Magnesium Hydroxide (Milk Of Magnesia) 30 ml DAILYPRN PRN PO CONSTIPATION; Start 02/03/17 at 15:45; Stop 03/05/17 at 15:44 Mirtazapine (Remeron) 15 mg QHS PO Last administered on 02/25/17 21:16; Start 02/04/17 at 21:00; Stop 03/06/17 at 20:59 Nicotine (Nicoderm Cq 21mg) 1 patch DAILY TD Last administered on 02/26/17 08: 02; Start 02/04/17 at 09:00; Stop 03/06/17 at 08:59 Olanzapine (ZyPREXA) 10 mg DAILY PO Last administered on 02/04/17 08:59; Start 02/03/17 at 09:00; Stop 02/04/17 at 14:20; Status DC Quetiapine Fumarate (SEROquel) 200 mg QHS PO ; Start 02/04/17 at 21:00; Stop at 13:42; Status DC Trazodone HCl (Desyrel) 50 mg QHSP PRN PO INSOMNIA; Start 02/03/17 at 16:45; Stop 03/05/17 at 16:44; Status Cancel Venlafaxine HCl (Effexor Xr) 75 mg DAILY PO Last administered on 02/06/17 08:28; Start 02/04/17 at 09:00; Stop 02/06/17 at 18:02; Status DC Venlafaxine HCl (Effexor Xr) 150 mg QHS PO Last administered on 02/23/17 21 :05; Start 02/07/17 at 21:00; Stop 02/24/17 at 17:59; Status DC Venlafaxine HCl (Effexor) 150 mg BID PO Last administered on 02/26/17 08:03; Start 02/24/17 at 21:00; Stop 03/26/17 at 20:59 Allergies Coded Allergies: Loxapine (Verified Allergy, Mild, 01/21/13) Thiothixene (Verified Allergy, Mild, 01/21/13) Fluphenazine (Verified Allergy, Unknown, 09/12/15) UNKNOWN [place] (Verified Allergy, Unknown, UNKNOWN, 09/12/15) Meperidine (Verified Allergy, Unknown, UNKNOWN, 09/12/15) Phenothiazines (Verified Allergy, Unknown, UNKNOWN, 09/12/15) Thioridazine (Verified Allergy, Unknown, UNKNOWN, 09/12/15) KELVIN GARIBAY MD February 26, 2017 13:27
[2017-02-26] MEDS: LORazepam 1 MG TAB PO SCH ×2 (16:04→20:51)
[2017-02-26 18:00] VITALS: BP 140/64
[2017-02-26] MEDS: MIRTAZAPINE 15 MG TAB PO SCH (20:51)
[2017-02-26] MEDS: GABAPENTIN 400 MG CAP PO SCH (20:51)
[2017-02-27] MEDS: BENZTROPINE 1 MG TAB PO SCH ×2 (08:13→21:37)
[2017-02-27] MEDS: DOCUSATE SODIUM 100 MG CAP PO SCH ×2 (08:13→21:37)
[2017-02-27] MEDS: LORazepam 1 MG TAB PO SCH ×3 (08:13→21:37)
[2017-02-27] MEDS: GABAPENTIN 100 MG CAP PO SCH (08:13)
[2017-02-27] MEDS: ARIPiprazole 10 MG TAB PO SCH ×2 (08:14→21:37)
[2017-02-27] MEDS: VENLAFAXINE 37.5 MG TAB PO SCH ×2 (08:16→21:37)
[2017-02-27] MEDS: NICOTINE 21MG/24HR 1 EA TRANSDERMAL TD SCH (08:17)
--- NOTE | 2017-02-27 10:18 | MHIPNPDOC ---
[facility] Progress Note Progress Note DATE OF SERVICE: 02/27/17 HISTORY: 51-year-old male with history of paranoid schizophrenia, major depressive disorder who has been decompensated over the last 10 days but Abilify was increased to 20 mg a day and venlafaxine was increased to 30 mg a day, BuSpar was discontinued and instead he is on Ativan 1 mg by mouth 3 times a day when necessary for anxiety and agitation. The agitation of other patients at the units made him feel unsafe, and that has contributed to his increasing paranoia and withdrawal. He has remaining his room for most of the time, and has been more anxious. He is in a waiting list to go for long-term treatment and hospitalization at [facility], because he tends to feel unsafe when not is institutionalized as it had been in the recent past when he was leaving at his apartment and he has constant paranoid thoughts and hallucinations about men breaking into his apartment trying to kill him. VITAL SIGNS: See below. NEW TEST RESULTS: None CURRENT MEDICATIONS: See below. MENTAL STATUS EXAMINATION: Patient is a alert-year old male, who is and cooperative but guarded, poor eye contact, anxious. Speech: Is tangential. Language skills are poor due to cognitive impairment secondary to long-term history of schizophrenia. Thought processes including: Intact Thought content: Positive for paranoid, persecutory delusions, positive for auditory and visual hallucinations, negative for suicidal thoughts, negative for homicidal thoughts. Abstract reasoning, and computation: Poor. Description of associations: Loose. Description of abnormal or psychotic thoughts: Paranoid, persecutory thoughts. Auditory and visual hallucinations. Judgment: Poor. Insight: Poor. Orientation: Oriented to place and person Recent and remote memory: Impaired Attention span and concentration: Poor. Language: Poverty of language. Fund of knowledge: Unable to assess. Mood: Anxious, hopeless. Affect: Depressed, anxious, irritable DIAGNOSES: 1. Paranoid schizophrenia. 2. Major Depressive Disorder. ASSESSMENT:He is more stable after his medications were increased. Will keep monitoring. MANAGEMENT PLAN: Continue with the transfer plan to [place]. TIME SPENT: 20 minutes. Vital Signs Vital Signs Date Time Temp Pulse Resp B/P (MAP) Pulse Ox O2 Delivery O2 Flow Rate FiO2 02/26/17 18:00 98.2 10 16 140/64 (89) Room Air Current Medications Current Medications Acetaminophen (Tylenol Tab) 650 mg Q6HP PRN PO HEADACHE or DISCOMFORT Last administered on 02/11/17 23:30; Start 02/03/17 at 15:45; Stop 03/05/17 at 15:44 Al Hydrox/Mg Hydrox/Simethicone (Mylanta) 30 ml Q4HP PRN PO HEARTBURN/ INDIGESTION; Start 02/03/17 at 15:45; Stop 03/05/17 at 15:44 Aripiprazole (AbiLIFY) 2.5 mg QHS PO Last administered on 02/16/17 20:07; Start 02/07/17 at 21:00; Stop 02/17/17 at 12:25; Status DC Aripiprazole (AbiLIFY) 5 mg QHS PO Last administered on 02/23/17 21:06; Start 02/17/17 at 21:00; Stop 02/24/17 at 17:48; Status DC Aripiprazole (AbiLIFY) 7.5 mg BID PO Last administered on 02/25/17 08:02; Start 02/24/17 at 21:00; Stop 02/25/17 at 11:54; Status DC Aripiprazole (AbiLIFY) 10 mg BID PO Last administered on 02/27/17 08:14; Start 02/25/17 at 21:00; Stop 03/27/17 at 20:59 Benztropine Mesylate (Cogentin) 0.5 mg BID PO Last administered on 02/23/17 08: 43; Start 02/04/17 at 09:00; Stop 02/23/17 at 13:41; Status DC Benztropine Mesylate (Cogentin) 1 mg BID PO Last administered on 02/27/17 08: 13; Start 02/23/17 at 09:00; Stop 03/25/17 at 08:59 Buspirone HCl (Buspar) 7.5 mg TID PO Last administered on 02/26/17 08:04; Start 02/04/17 at 16:00; Stop 02/26/17 at 12:48; Status DC Docusate Sodium (Colace) 100 mg BID PO Last administered on 02/27/17 08:13; Start 02/03/17 at 21:00; Stop 03/05/17 at 20:59 Gabapentin (Neurontin) 100 mg QAM PO Last administered on 02/24/17 08:14; Start 02/04/17 at 09:00; Stop 02/24/17 at 17:59; Status DC Gabapentin (Neurontin) 200 mg QAM PO Last administered on 02/27/17 08:13; Start 02/25/17 at 09:00; Stop 03/27/17 at 08:59 Gabapentin (Neurontin) 400 mg QHS PO Last administered on 02/26/17 20:51; Start 02/04/17 at 21:00; Stop 03/06/17 at 20:59 Haloperidol Decanoate (Haldol Decanoate) 50 mg Q14D STAT IM ; Start 02/18/17 at 20:24; Stop 02/18/17 at 20:25; Status Cancel Haloperidol Decanoate (Haldol Decanoate) 50 mg Q14D@14 IM Last administered on 02/18/17 14:10; Start 02/04/17 at 14:00; Stop 03/06/17 at 13:59 Home Med (Med Rec Complete!) ASDIRECTED XX ; Start 02/03/17 at 12:15; Stop at 12:15; Status DC Lorazepam (Ativan) 1 mg Q8HP PRN PO ANXIETY/AGITATION Last administered on 20:52; Start 02/03/17 at 15:45; Stop 02/26/17 at 12:48; Status DC Lorazepam (Ativan) 1 mg TID PO Last administered on 02/27/17 08:13; Start 08/05 at 16:00; Stop 03/31/17 at 15:44 Magnesium Hydroxide (Milk Of Magnesia) 30 ml DAILYPRN PRN PO CONSTIPATION; Start 02/03/17 at 15:45; Stop 03/05/17 at 15:44 Mirtazapine (Remeron) 15 mg QHS PO Last administered on 02/26/17 20:51; Start 02/04/17 at 21:00; Stop 03/06/17 at 20:59 Nicotine (Nicoderm Cq 21mg) 1 patch DAILY TD Last administered on 02/27/17 08: 17; Start 02/04/17 at 09:00; Stop 03/06/17 at 08:59 Olanzapine (ZyPREXA) 10 mg DAILY PO Last administered on 02/04/17 08:59; Start 02/03/17 at 09:00; Stop 02/04/17 at 14:20; Status DC Quetiapine Fumarate (SEROquel) 200 mg QHS PO ; Start 02/04/17 at 21:00; Stop at 13:42; Status DC Trazodone HCl (Desyrel) 50 mg QHSP PRN PO INSOMNIA; Start 02/03/17 at 16:45; Stop 03/05/17 at 16:44; Status Cancel Venlafaxine HCl (Effexor Xr) 75 mg DAILY PO Last administered on 02/06/17 08:28; Start 02/04/17 at 09:00; Stop 02/06/17 at 18:02; Status DC Venlafaxine HCl (Effexor Xr) 150 mg QHS PO Last administered on 02/23/17 21 :05; Start 02/07/17 at 21:00; Stop 02/24/17 at 17:59; Status DC Venlafaxine HCl (Effexor) 150 mg BID PO Last administered on 02/27/17 08:16; Start 02/24/17 at 21:00; Stop 03/26/17 at 20:59 Allergies Coded Allergies: Loxapine (Verified Allergy, Mild, 01/21/13) Thiothixene (Verified Allergy, Mild, 01/21/13) Fluphenazine (Verified Allergy, Unknown, 09/12/15) UNKNOWN [place] (Verified Allergy, Unknown, UNKNOWN, 09/12/15) Meperidine (Verified Allergy, Unknown, UNKNOWN, 09/12/15) Phenothiazines (Verified Allergy, Unknown, UNKNOWN, 09/12/15) Thioridazine (Verified Allergy, Unknown, UNKNOWN, 09/12/15) KELVIN GARIBAY MD February 27, 2017 10:18
[2017-02-27 18:00] VITALS: BP 132/70
[2017-02-27] MEDS: GABAPENTIN 400 MG CAP PO SCH (21:37)
[2017-02-27] MEDS: MIRTAZAPINE 15 MG TAB PO SCH (21:37)
[2017-02-28] MEDS: ARIPiprazole 10 MG TAB PO SCH ×2 (08:09→21:00)
[2017-02-28] MEDS: VENLAFAXINE 37.5 MG TAB PO SCH ×2 (08:09→21:00)
[2017-02-28] MEDS: LORazepam 1 MG TAB PO SCH ×3 (08:09→21:00)
[2017-02-28] MEDS: DOCUSATE SODIUM 100 MG CAP PO SCH ×2 (08:09→21:00)
[2017-02-28] MEDS: NICOTINE 21MG/24HR 1 EA TRANSDERMAL TD SCH (08:09)
[2017-02-28] MEDS: BENZTROPINE 1 MG TAB PO SCH ×2 (08:09→21:00)
[2017-02-28] MEDS: GABAPENTIN 100 MG CAP PO SCH (08:09)
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
[2017-02-28] MEDS ORDERED: traZODone 50 MG TAB PO PRN (12:45)
[2017-02-28 18:00] VITALS: BP 123/75
[2017-02-28] MEDS: GABAPENTIN 400 MG CAP PO SCH (21:00)
[2017-02-28] MEDS: MIRTAZAPINE 15 MG TAB PO SCH (21:00)
[2017-03-01] MEDS: DOCUSATE SODIUM 100 MG CAP PO SCH ×2 (08:17→20:32)
[2017-03-01] MEDS: NICOTINE 21MG/24HR 1 EA TRANSDERMAL TD SCH (08:17)
[2017-03-01] MEDS: ARIPiprazole 10 MG TAB PO SCH ×2 (08:17→20:32)
[2017-03-01] MEDS: VENLAFAXINE 37.5 MG TAB PO SCH ×2 (08:18→20:32)
[2017-03-01] MEDS: LORazepam 1 MG TAB PO SCH ×3 (08:18→20:32)
[2017-03-01] MEDS: BENZTROPINE 1 MG TAB PO SCH ×2 (08:18→20:32)
[2017-03-01] MEDS: GABAPENTIN 100 MG CAP PO SCH (08:18)
[2017-03-01 18:00] VITALS: BP 122/69
[2017-03-01] MEDS: GABAPENTIN 400 MG CAP PO SCH (20:32)
[2017-03-01] MEDS: MIRTAZAPINE 15 MG TAB PO SCH (20:33)
[2017-03-02 06:30] VITALS: BP 103/76
[2017-03-02] MEDS: VENLAFAXINE 37.5 MG TAB PO SCH ×2 (07:53→21:49)
[2017-03-02] MEDS: GABAPENTIN 100 MG CAP PO SCH (07:53)
[2017-03-02] MEDS: BENZTROPINE 1 MG TAB PO SCH ×2 (07:53→21:49)
[2017-03-02] MEDS: ARIPiprazole 10 MG TAB PO SCH ×2 (07:53→21:49)
[2017-03-02] MEDS: NICOTINE 21MG/24HR 1 EA TRANSDERMAL TD SCH (07:53)
[2017-03-02] MEDS: DOCUSATE SODIUM 100 MG CAP PO SCH ×2 (07:53→21:49)
[2017-03-02] MEDS: LORazepam 1 MG TAB PO SCH ×3 (07:53→21:49)
[2017-03-02 18:00] VITALS: BP 126/70
[2017-03-02] MEDS: MIRTAZAPINE 15 MG TAB PO SCH (21:49)
[2017-03-02] MEDS: GABAPENTIN 400 MG CAP PO SCH (21:49)
[2017-03-03] MEDS: NICOTINE 21MG/24HR 1 EA TRANSDERMAL TD SCH (08:14)
[2017-03-03] MEDS: GABAPENTIN 100 MG CAP PO SCH (08:14)
[2017-03-03] MEDS: ARIPiprazole 10 MG TAB PO SCH ×2 (08:14→20:40)
[2017-03-03] MEDS: BENZTROPINE 1 MG TAB PO SCH ×2 (08:15→20:40)
[2017-03-03] MEDS: VENLAFAXINE 37.5 MG TAB PO SCH ×2 (08:15→20:39)
[2017-03-03] MEDS: DOCUSATE SODIUM 100 MG CAP PO SCH ×2 (08:15→20:40)
[2017-03-03] MEDS: LORazepam 1 MG TAB PO SCH ×3 (08:15→20:40)
[2017-03-03] MEDS: MIRTAZAPINE 15 MG TAB PO SCH (20:40)
[2017-03-03] MEDS: GABAPENTIN 400 MG CAP PO SCH (20:40)
--- NOTE | 2017-03-03 20:49 | MHIPNPDOC ---
[facility] Progress Note Progress Note DATE OF SERVICE: 03/03/17 HISTORY: Evaluated 52 year old male with history of Paranoid Shizophrenia who continues to be delusional, and continues to report that different people come into his room at night and steal his things from him. He denies suicidal ideation, homicidal ideation and auditory or visual hallucinations but he HAS BEEN SEEN AND IS SEEN TODAY responding to internal stimuli, covering his ears as if he is trying to protect himself from auditory hallucinations. The Abilify dose was changed today to 15 mgs. PO BID. VITAL SIGNS: See below. NEW TEST RESULTS: None CURRENT MEDICATIONS: See below. MENTAL STATUS EXAMINATION: Patient is a 52-year old male, who is alert, guarded, with poor eye contact. Speech: Is tangential.. Language skills poor Thought processes including: Disorgnized. Thought content: Although he denies suicidal ideation, homicidal ideation, delusions and hallucinations, he responds to internal stimuli, sees things and people other people dont, and ins constantly on guard. Abstract reasoning, and computation: Poor. Description of associations: Loose at times. Description of abnormal or psychotic thoughts: Delusional, paranoid, persecutory type and most likely, auditory and visual hallucinations, since he reports unknown people coming in and out of his room, people that are waiting for him at the parking lot because they want to kill him. Judgment: Poor. Insight: Poor. Orientation: Oriented to person and place only. Recent and remote memory: Poor. Attention span and concentration: Poor. Language: Poor. Fund of knowledge: Unable to assess. Mood: Sad/anxious. Affect: Irritable, anxious, sad DIAGNOSES: 1. Paranoid schizophrenia 2. Major Depressive Disorder. 3. . ASSESSMENT: Still very paranoid. Today, Abilify was increased to 15 mgs. PO BID. Will f/u. MANAGEMENT PLAN: Continue at the [facility] until he can be transferred to [place]. TIME SPENT: 15 minutes. Vital Signs Vital Signs Date Time Temp Pulse Resp B/P (MAP) Pulse Ox O2 Delivery O2 Flow Rate FiO2 03/02/17 18:00 98.7 89 16 126/70 (88) 02/26/17 18:00 Room Air Current Medications Current Medications Acetaminophen (Tylenol Tab) 650 mg Q6HP PRN PO HEADACHE or DISCOMFORT Last administered on 02/11/17 23:30; Start 02/03/17 at 15:45; Stop 03/05/17 at 15:44 Al Hydrox/Mg Hydrox/Simethicone (Mylanta) 30 ml Q4HP PRN PO HEARTBURN/ INDIGESTION; Start 02/03/17 at 15:45; Stop 03/05/17 at 15:44 Aripiprazole (AbiLIFY) 2.5 mg QHS PO Last administered on 02/16/17 20:07; Start 02/07/17 at 21:00; Stop 02/17/17 at 12:25; Status DC Aripiprazole (AbiLIFY) 5 mg QHS PO Last administered on 02/23/17 21:06; Start 02/17/17 at 21:00; Stop 02/24/17 at 17:48; Status DC Aripiprazole (AbiLIFY) 7.5 mg BID PO Last administered on 02/25/17 08:02; Start 02/24/17 at 21:00; Stop 02/25/17 at 11:54; Status DC Aripiprazole (AbiLIFY) 10 mg BID PO Last administered on 03/03/17 08:14; Start 02/25/17 at 21:00; Stop 03/03/17 at 10:13; Status DC Aripiprazole (AbiLIFY) 15 mg BID PO ; Start 03/03/17 at 21:00; Stop 04/02/17 at 20:59 Benztropine Mesylate (Cogentin) 0.5 mg BID PO Last administered on 02/23/17 08: 43; Start 02/04/17 at 09:00; Stop 02/23/17 at 13:41; Status DC Benztropine Mesylate (Cogentin) 1 mg BID PO Last administered on 03/03/17 08: 15; Start 02/23/17 at 09:00; Stop 03/25/17 at 08:59 Buspirone HCl (Buspar) 7.5 mg TID PO Last administered on 02/26/17 08:04; Start 02/04/17 at 16:00; Stop 02/26/17 at 12:48; Status DC Docusate Sodium (Colace) 100 mg BID PO Last administered on 03/03/17 08:15; Start 02/03/17 at 21:00; Stop 03/05/17 at 20:59 Gabapentin (Neurontin) 100 mg QAM PO Last administered on 02/24/17 08:14; Start 02/04/17 at 09:00; Stop 02/24/17 at 17:59; Status DC Gabapentin (Neurontin) 200 mg QAM PO Last administered on 03/03/17 08:14; Start 02/25/17 at 09:00; Stop 03/27/17 at 08:59 Gabapentin (Neurontin) 400 mg QHS PO Last administered on 03/02/17 21:49; Start 02/04/17 at 21:00; Stop 03/06/17 at 20:59 Haloperidol Decanoate (Haldol Decanoate) 50 mg Q14D STAT IM ; Start 02/18/17 at 20:24; Stop 02/18/17 at 20:25; Status Cancel Haloperidol Decanoate (Haldol Decanoate) 50 mg Q14D@14 IM Last administered on 02/18/17 14:10; Start 02/04/17 at 14:00; Stop 03/06/17 at 13:59 Home Med (Med Rec Complete!) ASDIRECTED XX ; Start 02/03/17 at 12:15; Stop at 12:15; Status DC Lorazepam (Ativan) 1 mg Q8HP PRN PO ANXIETY/AGITATION Last administered on 20:52; Start 02/03/17 at 15:45; Stop 02/26/17 at 12:48; Status DC Lorazepam (Ativan) 1 mg TID PO Last administered on 03/03/17 15:58; Start 08/05 at 16:00; Stop 03/31/17 at 15:44 Magnesium Hydroxide (Milk Of Magnesia) 30 ml DAILYPRN PRN PO CONSTIPATION; Start 02/03/17 at 15:45; Stop 03/05/17 at 15:44 Mirtazapine (Remeron) 15 mg QHS PO Last administered on 02/27/17 21:37; Start 02/04/17 at 21:00; Stop 02/28/17 at 09:19; Status DC Mirtazapine (Remeron) 30 mg QHS PO Last administered on 03/02/17 21:49; Start 02/28/17 at 21:00; Stop 03/30/17 at 20:59 Nicotine (Nicoderm Cq 21mg) 1 patch DAILY TD Last administered on 03/03/17 08: 14; Start 02/04/17 at 09:00; Stop 03/06/17 at 08:59 Olanzapine (ZyPREXA) 10 mg DAILY PO Last administered on 02/04/17 08:59; Start 02/03/17 at 09:00; Stop 02/04/17 at 14:20; Status DC Quetiapine Fumarate (SEROquel) 200 mg QHS PO ; Start 02/04/17 at 21:00; Stop at 13:42; Status DC Trazodone HCl (Desyrel) 50 mg QHSP PRN PO INSOMNIA; Start 02/03/17 at 16:45; Stop 03/05/17 at 16:44; Status Cancel Trazodone HCl (Desyrel) 50 mg QHSP PRN PO INSOMNIA Last administered on 21:49; Start 02/28/17 at 12:45; Stop 03/30/17 at 12:44 Venlafaxine HCl (Effexor Xr) 75 mg DAILY PO Last administered on 02/06/17 08:28; Start 02/04/17 at 09:00; Stop 02/06/17 at 18:02; Status DC Venlafaxine HCl (Effexor Xr) 150 mg QHS PO Last administered on 02/23/17 21 :05; Start 02/07/17 at 21:00; Stop 02/24/17 at 17:59; Status DC Venlafaxine HCl (Effexor) 150 mg BID PO Last administered on 03/03/17 08:15; Start 02/24/17 at 21:00; Stop 03/26/17 at 20:59 Allergies Coded Allergies: Loxapine (Verified Allergy, Mild, 01/21/13) Thiothixene (Verified Allergy, Mild, 01/21/13) Fluphenazine (Verified Allergy, Unknown, 09/12/15) UNKNOWN Dietrich (Verified Allergy, Unknown, UNKNOWN, 09/12/15) Meperidine (Verified Allergy, Unknown, UNKNOWN, 09/12/15) Phenothiazines (Verified Allergy, Unknown, UNKNOWN, 09/12/15) Thioridazine (Verified Allergy, Unknown, UNKNOWN, 09/12/15) KELVIN GARIBAY MD March 03, 2017 20:49
[2017-03-04] MEDS: DOCUSATE SODIUM 100 MG CAP PO SCH ×2 (08:05→22:02)
[2017-03-04] MEDS: VENLAFAXINE 37.5 MG TAB PO SCH ×2 (08:05→22:03)
[2017-03-04] MEDS: BENZTROPINE 1 MG TAB PO SCH ×2 (08:05→22:02)
[2017-03-04] MEDS: GABAPENTIN 100 MG CAP PO SCH (08:05)
[2017-03-04] MEDS: ARIPiprazole 10 MG TAB PO SCH ×2 (08:05→22:02)
[2017-03-04] MEDS: LORazepam 1 MG TAB PO SCH ×3 (08:05→22:03)
[2017-03-04] MEDS: NICOTINE 21MG/24HR 1 EA TRANSDERMAL TD SCH (08:05)
[2017-03-04] MEDS: HALOPERIDOL DECANOATE 100 MG/ML VIAL (J1631) IM SCH (13:27)
--- NOTE | 2017-03-04 16:31 | MHIPNPDOC ---
[facility] Progress Note Progress Note DATE OF SERVICE: 03/04/17 Evaluated 52-year-old male with history of paranoid schizophrenia who continues to be delusional and isolated to his room. He attended some groups in the morning hours but during the afternoon he has remained in his room. He continues to deny suicidal ideation, homicidal ideation, delusional thoughts, auditory and visual hallucinations but he is internally preoccupied, continues to respond to internal stimuli, is irritable and difficult to engage. The patient's memory, attention and concentration are very poor due to cognitive impairment caused by chronic mental illness. He is only oriented to place and person, his abstract thinking is very poor, computation is very poor because he can't focus or concentrate. It is not possible to evaluate his fund of knowledge because today he is even more distracted than previous days and he won 't answer questions because of that distractibility. His insight and judgment are poor. His impulse control is fair. He continues to be a danger to others because he continues to be delusional in spite of the being on high doses of medications. We'll continue to follow DIAGNOSES: As above ASSESSMENT: Will continue to adjust medications until he becomes less paranoid and less isolated. Pending to be transferred to [place]. MANAGEMENT PLAN: As above. TIME SPENT: 15 minutes. Vital Signs Vital Signs Date Time Temp Pulse Resp B/P (MAP) Pulse Ox O2 Delivery O2 Flow Rate FiO2 03/02/17 18:00 98.7 89 16 126/70 (88) 02/26/17 18:00 Room Air Current Medications Current Medications Acetaminophen (Tylenol Tab) 650 mg Q6HP PRN PO HEADACHE or DISCOMFORT Last administered on 02/11/17 23:30; Start 02/03/17 at 15:45; Stop 03/05/17 at 15:44 Al Hydrox/Mg Hydrox/Simethicone (Mylanta) 30 ml Q4HP PRN PO HEARTBURN/ INDIGESTION; Start 02/03/17 at 15:45; Stop 03/05/17 at 15:44 Aripiprazole (AbiLIFY) 2.5 mg QHS PO Last administered on 02/16/17 20:07; Start 02/07/17 at 21:00; Stop 02/17/17 at 12:25; Status DC Aripiprazole (AbiLIFY) 5 mg QHS PO Last administered on 02/23/17 21:06; Start 02/17/17 at 21:00; Stop 02/24/17 at 17:48; Status DC Aripiprazole (AbiLIFY) 7.5 mg BID PO Last administered on 02/25/17 08:02; Start 02/24/17 at 21:00; Stop 02/25/17 at 11:54; Status DC Aripiprazole (AbiLIFY) 10 mg BID PO Last administered on 03/03/17 08:14; Start 02/25/17 at 21:00; Stop 03/03/17 at 10:13; Status DC Aripiprazole (AbiLIFY) 15 mg BID PO Last administered on 03/04/17 08:05; Start 03/03/17 at 21:00; Stop 04/02/17 at 20:59 Benztropine Mesylate (Cogentin) 0.5 mg BID PO Last administered on 02/23/17 08: 43; Start 02/04/17 at 09:00; Stop 02/23/17 at 13:41; Status DC Benztropine Mesylate (Cogentin) 1 mg BID PO Last administered on 03/04/17 08: 05; Start 02/23/17 at 09:00; Stop 03/25/17 at 08:59 Buspirone HCl (Buspar) 7.5 mg TID PO Last administered on 02/26/17 08:04; Start 02/04/17 at 16:00; Stop 02/26/17 at 12:48; Status DC Docusate Sodium (Colace) 100 mg BID PO Last administered on 03/04/17 08:05; Start 02/03/17 at 21:00; Stop 03/05/17 at 20:59 Gabapentin (Neurontin) 100 mg QAM PO Last administered on 02/24/17 08:14; Start 02/04/17 at 09:00; Stop 02/24/17 at 17:59; Status DC Gabapentin (Neurontin) 200 mg QAM PO Last administered on 03/04/17 08:05; Start 02/25/17 at 09:00; Stop 03/27/17 at 08:59 Gabapentin (Neurontin) 400 mg QHS PO Last administered on 03/03/17 20:40; Start 02/04/17 at 21:00; Stop 03/06/17 at 20:59 Haloperidol Decanoate (Haldol Decanoate) 50 mg Q14D STAT IM ; Start 02/18/17 at 20:24; Stop 02/18/17 at 20:25; Status Cancel Haloperidol Decanoate (Haldol Decanoate) 50 mg Q14D@14 IM Last administered on 03/04/17 13:27; Start 02/04/17 at 14:00; Stop 03/06/17 at 13:59 Home Med (Med Rec Complete!) ASDIRECTED XX ; Start 02/03/17 at 12:15; Stop at 12:15; Status DC Lorazepam (Ativan) 1 mg Q8HP PRN PO ANXIETY/AGITATION Last administered on 20:52; Start 02/03/17 at 15:45; Stop 02/26/17 at 12:48; Status DC Lorazepam (Ativan) 1 mg TID PO Last administered on 03/04/17 15:35; Start 08/05 at 16:00; Stop 03/31/17 at 15:44 Magnesium Hydroxide (Milk Of Magnesia) 30 ml DAILYPRN PRN PO CONSTIPATION; Start 02/03/17 at 15:45; Stop 03/05/17 at 15:44 Mirtazapine (Remeron) 15 mg QHS PO Last administered on 02/27/17 21:37; Start 02/04/17 at 21:00; Stop 02/28/17 at 09:19; Status DC Mirtazapine (Remeron) 30 mg QHS PO Last administered on 03/03/17 20:40; Start 02/28/17 at 21:00; Stop 03/30/17 at 20:59 Nicotine (Nicoderm Cq 21mg) 1 patch DAILY TD Last administered on 03/04/17 08: 05; Start 02/04/17 at 09:00; Stop 03/06/17 at 08:59 Olanzapine (ZyPREXA) 10 mg DAILY PO Last administered on 02/04/17 08:59; Start 02/03/17 at 09:00; Stop 02/04/17 at 14:20; Status DC Quetiapine Fumarate (SEROquel) 200 mg QHS PO ; Start 02/04/17 at 21:00; Stop at 13:42; Status DC Trazodone HCl (Desyrel) 50 mg QHSP PRN PO INSOMNIA; Start 02/03/17 at 16:45; Stop 03/05/17 at 16:44; Status Cancel Trazodone HCl (Desyrel) 50 mg QHSP PRN PO INSOMNIA Last administered on 21:49; Start 02/28/17 at 12:45; Stop 03/30/17 at 12:44 Venlafaxine HCl (Effexor Xr) 75 mg DAILY PO Last administered on 02/06/17 08:28; Start 02/04/17 at 09:00; Stop 02/06/17 at 18:02; Status DC Venlafaxine HCl (Effexor Xr) 150 mg QHS PO Last administered on 02/23/17 21 :05; Start 02/07/17 at 21:00; Stop 02/24/17 at 17:59; Status DC Venlafaxine HCl (Effexor) 150 mg BID PO Last administered on 03/04/17 08:05; Start 02/24/17 at 21:00; Stop 03/26/17 at 20:59 Allergies Coded Allergies: Loxapine (Verified Allergy, Mild, 01/21/13) Thiothixene (Verified Allergy, Mild, 01/21/13) Fluphenazine (Verified Allergy, Unknown, 09/12/15) UNKNOWN Graham (Verified Allergy, Unknown, UNKNOWN, 09/12/15) Meperidine (Verified Allergy, Unknown, UNKNOWN, 09/12/15) Phenothiazines (Verified Allergy, Unknown, UNKNOWN, 09/12/15) Thioridazine (Verified Allergy, Unknown, UNKNOWN, 09/12/15) KELVIN GARIBAY MD March 04, 2017 16:31
[2017-03-04] MEDS: MIRTAZAPINE 15 MG TAB PO SCH (22:02)
[2017-03-04] MEDS: GABAPENTIN 400 MG CAP PO SCH (22:03)
[2017-03-05] MEDS: LORazepam 1 MG TAB PO SCH ×3 (08:31→21:16)
[2017-03-05] MEDS: NICOTINE 21MG/24HR 1 EA TRANSDERMAL TD SCH (08:32)
[2017-03-05] MEDS: DOCUSATE SODIUM 100 MG CAP PO SCH ×2 (08:32→21:15)
[2017-03-05] MEDS: ARIPiprazole 10 MG TAB PO SCH ×2 (08:33→21:16)
[2017-03-05] MEDS: BENZTROPINE 1 MG TAB PO SCH ×2 (08:33→21:16)
[2017-03-05] MEDS: GABAPENTIN 100 MG CAP PO SCH (08:33)
[2017-03-05] MEDS: VENLAFAXINE 37.5 MG TAB PO SCH ×2 (08:33→21:16)
[2017-03-05] MEDS ORDERED: ACETAMINOPHEN TAB 650MG DOSE (2X325MG) PO PRN (19:15)
[2017-03-05] MEDS ORDERED: MOM 30ML SUSPENSION UDC PO PRN (19:15)
[2017-03-05] MEDS: GABAPENTIN 400 MG CAP PO SCH (21:16)
[2017-03-05] MEDS: MIRTAZAPINE 15 MG TAB PO SCH (21:16)
--- NOTE | 2017-03-05 22:35 | IPN ---
DATE: 03/05/2017 I evaluated this 52-year-old male with history of paranoid schizophrenia who continues to be delusional and isolative to his room. This afternoon he was evaluated in his room where he was laying in bed in a semi- position, partially covered with a blanket. He woke when the author of this document walked into his room, but he did not want to speak, he was very brief. He was dressed in hospital clothes, did not open his eyes to make eye contact, he was guarded, although he was not aggressive. His speech was tangential but was not rapid and not circumstantial. His thought process continues to be disorganized, his thought content is positive for paranoid delusions and although he denies homicidal ideation, suicidal ideation, and auditory or visual hallucinations, he continues to be seen responding to internal stimuli and being extremely anxious because he continues to believe that other people are out to hurt him. Today, it was not possible to evaluate his memory, his attention and concentration, or his fund of knowledge because he refused to cooperate with the interview. He said that he wanted to continue sleeping and he did not answer any further questions. He will continue on the same treatment plan, will adjust medications accordingly, and will be monitored and closely observed. The plan is to transfer the patient to [place] for long-term treatment and hospitalization because he needs a higher level of care and the patient has agreed with that. Will followup.
[2017-03-06 06:45] VITALS: BP 116/68
[2017-03-06] MEDS: NICOTINE 21MG/24HR 1 EA TRANSDERMAL TD SCH (08:31)
[2017-03-06] MEDS: BENZTROPINE 1 MG TAB PO SCH ×2 (08:31→20:04)
[2017-03-06] MEDS: LORazepam 1 MG TAB PO SCH ×3 (08:31→20:04)
[2017-03-06] MEDS: DOCUSATE SODIUM 100 MG CAP PO SCH ×2 (08:31→20:04)
[2017-03-06] MEDS: VENLAFAXINE 37.5 MG TAB PO SCH ×2 (08:32→20:04)
[2017-03-06] MEDS: GABAPENTIN 100 MG CAP PO SCH (08:32)
[2017-03-06] MEDS: ARIPiprazole 10 MG TAB PO SCH ×2 (08:32→20:04)
[2017-03-06] MEDS ORDERED: MAALOX 30 ML SUSP *UDC PO PRN (10:00)
[2017-03-06 18:00] VITALS: BP 100/65
[2017-03-06] MEDS: GABAPENTIN 400 MG CAP PO SCH (20:04)
[2017-03-06] MEDS: MIRTAZAPINE 15 MG TAB PO SCH (20:04)
--- NOTE | 2017-03-06 23:15 | MHIPNPDOC ---
[facility] Progress Note Progress Note DATE OF SERVICE: 03/06/17 HISTORY: Evaluated patient with history of paranoid schizophrenia who continues to experience delusional thoughts, paranoid and persecutory type. He continues to be reclusive, isolated to his room, irritable, guarded. He attends groups but doesnt participate and has almost no interaction with staff and peers. He was seen today laying on his bed, half covered with his blanket, arms crossed over his chest, in a semi position. He stated that he felt "good", denied suicidal ideation, homicidal ideation, denied delusional thoughts and auditory/ visual hallucinations, but he continues to be internally preoccupied, responding to internal stimuli, with tangential speech, poor eye contact and high anxiety levels. VITAL SIGNS: See below. NEW TEST RESULTS: None CURRENT MEDICATIONS: See below. ASSESSMENT:Patient seems to have more energy at times but then, he goes back to his low energy levels and psychomotor retardation. He is continuously guarded, scared, preoccupied in spite of being on several medications that have been adjusted over the last three weeks. Patient needs [facility] driver treatment to stabilize him. MANAGEMENT PLAN: Transfer him to [place] as soon as a bed becomes available, for a higher level of care. TIME SPENT: 15 minutes. Vital Signs Vital Signs Date Time Temp Pulse Resp B/P (MAP) Pulse Ox O2 Delivery O2 Flow Rate FiO2 03/06/17 18:00 99.3 95 16 100/65 (77) Current Medications Current Medications Acetaminophen (Tylenol Tab) 650 mg Q6HP PRN PO HEADACHE or DISCOMFORT Last administered on 02/11/17t 23:30; Start 02/03/17 at 15:45; Stop 04/04/17 at 15:44 Acetaminophen (Tylenol Tab) 650 mg Q6HP PRN PO HEADACHE or DISCOMFORT; Start at 19:15; Stop 04/04/17 at 19:14; Status Cancel Al Hydrox/Mg Hydrox/Simethicone (Mylanta) 30 ml Q4HP PRN PO HEARTBURN/ INDIGESTION; Start 02/03/17 at 15:45; Stop 03/05/17 at 15:44; Status DC Al Hydrox/Mg Hydrox/Simethicone (Mylanta) 30 ml Q4HP PRN PO HEARTBURN/ INDIGESTION; Start 03/05/17 at 19:30; Stop 04/04/17 at 19:29 Al Hydrox/Mg Hydrox/Simethicone (Mylanta) 30 ml Q4HP PRN PO HEARTBURN/ INDIGESTION; Start 03/06/17 at 10:00; Stop 04/04/17 at 09:59; Status Cancel Aripiprazole (AbiLIFY) 2.5 mg QHS PO Last administered on 02/16/17 20:07; Start 02/07/17 at 21:00; Stop 02/17/17 at 12:25; Status DC Aripiprazole (AbiLIFY) 5 mg QHS PO Last administered on 02/23/17 21:06; Start 02/17/17 at 21:00; Stop 02/24/17 at 17:48; Status DC Aripiprazole (AbiLIFY) 7.5 mg BID PO Last administered on 02/25/17 08:02; Start 02/24/17 at 21:00; Stop 02/25/17 at 11:54; Status DC Aripiprazole (AbiLIFY) 10 mg BID PO Last administered on 03/03/17 08:14; Start 02/25/17 at 21:00; Stop 03/03/17 at 10:13; Status DC Aripiprazole (AbiLIFY) 15 mg BID PO Last administered on 03/06/17 20:04; Start 03/03/17 at 21:00; Stop 04/02/17 at 20:59 Benztropine Mesylate (Cogentin) 0.5 mg BID PO Last administered on 02/23/17 08: 43; Start 02/04/17 at 09:00; Stop 02/23/17 at 13:41; Status DC Benztropine Mesylate (Cogentin) 1 mg BID PO Last administered on 03/06/17 20: 04; Start 02/23/17 at 09:00; Stop 03/25/17 at 08:59 Buspirone HCl (Buspar) 7.5 mg TID PO Last administered on 02/26/17 08:04; Start 02/04/17 at 16:00; Stop 02/26/17 at 12:48; Status DC Docusate Sodium (Colace) 100 mg BID PO Last administered on 03/06/17 20:04; Start 02/03/17 at 21:00; Stop 04/04/17 at 20:59 Gabapentin (Neurontin) 100 mg QAM PO Last administered on 02/24/17 08:14; Start 02/04/17 at 09:00; Stop 02/24/17 at 17:59; Status DC Gabapentin (Neurontin) 200 mg QAM PO Last administered on 03/06/17 08:32; Start 02/25/17 at 09:00; Stop 03/27/17 at 08:59 Gabapentin (Neurontin) 400 mg QHS PO Last administered on 03/06/17 20:04; Start 02/04/17 at 21:00; Stop 04/04/17 at 20:59 Haloperidol Decanoate (Haldol Decanoate) 50 mg Q14D STAT IM ; Start 02/18/17 at 20:24; Stop 02/18/17 at 20:25; Status Cancel Haloperidol Decanoate (Haldol Decanoate) 50 mg Q14D@14 IM Last administered on 03/04/17 13:27; Start 02/04/17 at 14:00; Stop 03/06/17 at 13:59; Status DC Home Med (Med Rec Complete!) ASDIRECTED XX ; Start 02/03/17 at 12:15; Stop at 12:15; Status DC Lorazepam (Ativan) 1 mg Q8HP PRN PO ANXIETY/AGITATION Last administered on 20:52; Start 02/03/17 at 15:45; Stop 02/26/17 at 12:48; Status DC Lorazepam (Ativan) 1 mg TID PO Last administered on 03/06/17 20:04; Start 08/05 at 16:00; Stop 03/31/17 at 15:44 Magnesium Hydroxide (Milk Of Magnesia) 30 ml DAILYPRN PRN PO CONSTIPATION; Start 02/03/17 at 15:45; Stop 03/05/17 at 15:44; Status DC Magnesium Hydroxide (Milk Of Magnesia) 30 ml DAILYPRN PRN PO CONSTIPATION; Start 03/05/17 at 19:15; Stop 04/04/17 at 19:14 Mirtazapine (Remeron) 15 mg QHS PO Last administered on 02/27/17 21:37; Start 02/04/17 at 21:00; Stop 02/28/17 at 09:19; Status DC Mirtazapine (Remeron) 30 mg QHS PO Last administered on 03/06/17 20:04; Start 02/28/17 at 21:00; Stop 03/30/17 at 20:59 Nicotine (Nicoderm Cq 21mg) 1 patch DAILY TD Last administered on 03/06/17 08: 31; Start 02/04/17 at 09:00; Stop 04/04/17 at 08:59 Olanzapine (ZyPREXA) 10 mg DAILY PO Last administered on 02/04/17 08:59; Start 02/03/17 at 09:00; Stop 02/04/17 at 14:20; Status DC Quetiapine Fumarate (SEROquel) 200 mg QHS PO ; Start 02/04/17 at 21:00; Stop at 13:42; Status DC Trazodone HCl (Desyrel) 50 mg QHSP PRN PO INSOMNIA; Start 02/03/17 at 16:45; Stop 03/05/17 at 16:44; Status Cancel Trazodone HCl (Desyrel) 50 mg QHSP PRN PO INSOMNIA Last administered on 21:49; Start 02/28/17 at 12:45; Stop 03/30/17 at 12:44 Venlafaxine HCl (Effexor Xr) 75 mg DAILY PO Last administered on 02/06/17 08:28; Start 02/04/17 at 09:00; Stop 02/06/17 at 18:02; Status DC Venlafaxine HCl (Effexor Xr) 150 mg QHS PO Last administered on 02/23/17 21 :05; Start 02/07/17 at 21:00; Stop 02/24/17 at 17:59; Status DC Venlafaxine HCl (Effexor) 150 mg BID PO Last administered on 03/06/17 20:04; Start 02/24/17 at 21:00; Stop 03/26/17 at 20:59 Allergies Coded Allergies: Loxapine (Verified Allergy, Mild, 01/21/13) Thiothixene (Verified Allergy, Mild, 01/21/13) Fluphenazine (Verified Allergy, Unknown, 09/12/15) UNKNOWN [place] (Verified Allergy, Unknown, UNKNOWN, 09/12/15) Meperidine (Verified Allergy, Unknown, UNKNOWN, 09/12/15) Phenothiazines (Verified Allergy, Unknown, UNKNOWN, 09/12/15) Thioridazine (Verified Allergy, Unknown, UNKNOWN, 09/12/15) KELVIN GARIBAY MD March 06, 2017 23:15
[2017-03-07 06:30] VITALS: BP 100/69
[2017-03-07] MEDS: NICOTINE 21MG/24HR 1 EA TRANSDERMAL TD SCH (08:11)
[2017-03-07] MEDS: GABAPENTIN 100 MG CAP PO SCH (08:11)
[2017-03-07] MEDS: BENZTROPINE 1 MG TAB PO SCH ×2 (08:12→21:00)
[2017-03-07] MEDS: DOCUSATE SODIUM 100 MG CAP PO SCH ×2 (08:12→21:00)
[2017-03-07] MEDS: VENLAFAXINE **XR** 75MG CAPSULE PO SCH ×2 (08:12→21:32)
[2017-03-07] MEDS: ARIPiprazole 10 MG TAB PO SCH ×2 (08:12→21:31)
[2017-03-07] MEDS: LORazepam 1 MG TAB PO SCH ×3 (08:12→21:00)
[2017-03-07 18:19] VITALS: BP 110/66
[2017-03-07] MEDS: MIRTAZAPINE 15 MG TAB PO SCH (21:00)
[2017-03-07] MEDS: GABAPENTIN 400 MG CAP PO SCH (21:32)
[2017-03-08] MEDS: LORazepam 1 MG TAB PO SCH ×3 (08:07→19:57)
[2017-03-08] MEDS: BENZTROPINE 1 MG TAB PO SCH ×2 (08:07→19:57)
[2017-03-08] MEDS: DOCUSATE SODIUM 100 MG CAP PO SCH ×2 (08:07→19:57)
[2017-03-08] MEDS: ARIPiprazole 10 MG TAB PO SCH (08:08)
[2017-03-08] MEDS: GABAPENTIN 100 MG CAP PO SCH (08:08)
[2017-03-08] MEDS: VENLAFAXINE **XR** 75MG CAPSULE PO SCH ×2 (08:08→19:58)
[2017-03-08] MEDS: NICOTINE 21MG/24HR 1 EA TRANSDERMAL TD SCH (08:09)
[2017-03-08] MEDS ORDERED: ARIPiprazole 15 MG TAB (AbiLIFY) PO SCH (09:00)
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
[2017-03-08 18:23] VITALS: BP 108/68
[2017-03-08] MEDS: MIRTAZAPINE 15 MG TAB PO SCH (19:58)
[2017-03-08] MEDS: ARIPiprazole 15 MG TAB (AbiLIFY) PO SCH (19:58)
[2017-03-08] MEDS: GABAPENTIN 400 MG CAP PO SCH (19:58)
[2017-03-09] MEDS: NICOTINE 21MG/24HR 1 EA TRANSDERMAL TD SCH (08:35)
[2017-03-09] MEDS: VENLAFAXINE **XR** 75MG CAPSULE PO SCH ×2 (08:36→21:16)
[2017-03-09] MEDS: BENZTROPINE 1 MG TAB PO SCH ×2 (08:36→21:00)
[2017-03-09] MEDS: GABAPENTIN 100 MG CAP PO SCH (08:36)
[2017-03-09] MEDS: ARIPiprazole 15 MG TAB (AbiLIFY) PO SCH ×2 (08:36→21:16)
[2017-03-09] MEDS: LORazepam 1 MG TAB PO SCH ×3 (08:36→21:00)
[2017-03-09] MEDS: DOCUSATE SODIUM 100 MG CAP PO SCH ×2 (08:37→21:00)
[2017-03-09 18:00] VITALS: BP 115/67
[2017-03-09] MEDS: MIRTAZAPINE 15 MG TAB PO SCH (21:00)
[2017-03-09] MEDS: GABAPENTIN 400 MG CAP PO SCH (21:16)
[2017-03-10 06:36] VITALS: BP 122/67
[2017-03-10] MEDS: DOCUSATE SODIUM 100 MG CAP PO SCH ×2 (08:02→20:28)
[2017-03-10] MEDS: BENZTROPINE 1 MG TAB PO SCH ×2 (08:02→21:00)
[2017-03-10] MEDS: LORazepam 1 MG TAB PO SCH ×3 (08:02→21:00)
[2017-03-10] MEDS: VENLAFAXINE **XR** 75MG CAPSULE PO SCH ×2 (08:03→20:28)
[2017-03-10] MEDS: ARIPiprazole 15 MG TAB (AbiLIFY) PO SCH (08:03)
[2017-03-10] MEDS: GABAPENTIN 100 MG CAP PO SCH (08:04)
[2017-03-10] MEDS: NICOTINE 21MG/24HR 1 EA TRANSDERMAL TD SCH (08:04)
--- NOTE | 2017-03-10 15:09 | MHIPNPDOC ---
[facility] Progress Note Progress Note INTERVAL HISTORY: Medication Side effects: Denies Behavior: Cooperative but guarded and suspicious Group Attendance: And attends groups regularly Psychiatric Symptom change: Continues to be paranoid, guarded and suspicious but he has more energy and comes out of his room more frequently although he doesn't engage or interact with peers or staff. VITAL SIGNS: See below. NEW TEST RESULTS: See below CURRENT MEDICATIONS: See below. MENTAL STATUS EXAMINATION: General: Dressed in hospital clothes, with poor eye contact, good hygiene. Speech: Normal, soft spoken, sparse Thought processes: Tangential but less than before. Thought blocking. Disorganized Thought content: Negative for suicidal ideation, negative for homicidal ideation. Perseverates about his belongings being stolen from his previous apartment at [place]. Abstract reasoning, and computation: Limited due to cognitive deficits caused by schizophrenia Description of associations: Not loose Description of abnormal or psychotic thoughts: Paranoid, persecutory delusions. Denies auditory and visual hallucinations but he is seen responding to internal stimuli and he reports seeing people coming into his room at night or seeing people that come during visiting hours for other patients that he knows are linked to the mall. When this author asks him about the name of these persons he states "I don't know". Judgment: Poor Insight: Poor Orientation: Oriented to place and person only Recent and remote memory: Limited due to cognitive deficits caused by schizophrenia Attention span and concentration: Fair Fund of knowledge: Adequate Mood: "I'm fed up of being here" Affect: Anxious, slightly irritable. Blunted affect. DIAGNOSES: 1. Paranoid schizophrenia, chronic. 2. Major depression. ASSESSMENT: Patient continues to be paranoid and suspicious in spite of medication adjustments. He is due for his next Haldol Decanoate injection on March 18. Will continue to increase Abilify and will order liver profile. We will follow up. MANAGEMENT PLAN: Medications: Haldol Decanoate 50 mg IM every 14 days for schizophrenia/psychosis , Abilify 15 mg by mouth twice a day, gabapentin 400 mg by mouth daily at bedtime and 200 mg by mouth every morning, venlafaxine on Remeron 50 mg by mouth twice a day, Remeron 30 mg by mouth daily at bedtime. Will increase Abilify to 20 mg by mouth twice a day. Psychotherapy: We'll continue to encourage him to attend groups Social: --- Misc: ----- Disposition: Is to continue at the inpatient mental health unit to decrease his psychotic symptoms and to decrease his depressive symptoms. Pending transfer to [place]. TIME SPENT: 15 minutes.DATE OF SERVICE: 03/10/17 HISTORY: . VITAL SIGNS: See below. NEW TEST RESULTS: . CURRENT MEDICATIONS: See below. MENTAL STATUS EXAMINATION: Patient is a -year old male, who is . Speech: Is . Language skills are . Thought processes including: . Thought content: . Abstract reasoning, and computation: . Description of associations: . Description of abnormal or psychotic thoughts: . Judgment: . Insight: [very limited, good, fair. poor]. Orientation: . Recent and remote memory: . Attention span and concentration: . Language: . Fund of knowledge: . Mood: . Affect: . DIAGNOSES: 1. . 2. . 3. . ASSESSMENT: MANAGEMENT PLAN: . TIME SPENT: minutes. Vital Signs Vital Signs Date Time Temp Pulse Resp B/P (MAP) Pulse Ox O2 Delivery O2 Flow Rate FiO2 03/10/17 06:36 97.5 97 18 122/67 (85) Current Medications Current Medications Acetaminophen (Tylenol Tab) 650 mg Q6HP PRN PO HEADACHE or DISCOMFORT Last administered on 02/11/17t 23:30; Start 02/03/17 at 15:45; Stop 04/04/17 at 15:44 Acetaminophen (Tylenol Tab) 650 mg Q6HP PRN PO HEADACHE or DISCOMFORT; Start at 19:15; Stop 04/04/17 at 19:14; Status Cancel Al Hydrox/Mg Hydrox/Simethicone (Mylanta) 30 ml Q4HP PRN PO HEARTBURN/ INDIGESTION; Start 02/03/17 at 15:45; Stop 03/05/17 at 15:44; Status DC Al Hydrox/Mg Hydrox/Simethicone (Mylanta) 30 ml Q4HP PRN PO HEARTBURN/ INDIGESTION; Start 03/05/17 at 19:30; Stop 04/04/17 at 19:29 Al Hydrox/Mg Hydrox/Simethicone (Mylanta) 30 ml Q4HP PRN PO HEARTBURN/ INDIGESTION; Start 03/06/17 at 10:00; Stop 04/04/17 at 09:59; Status Cancel Aripiprazole (AbiLIFY) 2.5 mg QHS PO Last administered on 02/16/17 20:07; Start 02/07/17 at 21:00; Stop 02/17/17 at 12:25; Status DC Aripiprazole (AbiLIFY) 5 mg QHS PO Last administered on 02/23/17 21:06; Start 02/17/17 at 21:00; Stop 02/24/17 at 17:48; Status DC Aripiprazole (AbiLIFY) 7.5 mg BID PO Last administered on 02/25/17 08:02; Start 02/24/17 at 21:00; Stop 02/25/17 at 11:54; Status DC Aripiprazole (AbiLIFY) 10 mg BID PO Last administered on 03/03/17 08:14; Start 02/25/17 at 21:00; Stop 03/03/17 at 10:13; Status DC Aripiprazole (AbiLIFY) 15 mg BID PO Last administered on 03/08/17 08:08; Start 03/03/17 at 21:00; Stop 03/08/17 at 08:14; Status DC Aripiprazole (AbiLIFY) 15 mg BID PO ; Start 03/08/17 at 09:00; Stop 04/02/17 at 20:59; Status Cancel Aripiprazole (AbiLIFY) 15 mg BID PO Last administered on 03/10/17 08:03; Start 03/08/17 at 21:00; Stop 04/02/17 at 20:59 Benztropine Mesylate (Cogentin) 0.5 mg BID PO Last administered on 02/23/17 08: 43; Start 02/04/17 at 09:00; Stop 02/23/17 at 13:41; Status DC Benztropine Mesylate (Cogentin) 1 mg BID PO Last administered on 03/07/17 08: 12; Start 02/23/17 at 09:00; Stop 03/25/17 at 08:59 Buspirone HCl (Buspar) 7.5 mg TID PO Last administered on 02/26/17 08:04; Start 02/04/17 at 16:00; Stop 02/26/17 at 12:48; Status DC Docusate Sodium (Colace) 100 mg BID PO Last administered on 03/07/17 08:12; Start 02/03/17 at 21:00; Stop 04/04/17 at 20:59 Gabapentin (Neurontin) 100 mg QAM PO Last administered on 02/24/17 08:14; Start 02/04/17 at 09:00; Stop 02/24/17 at 17:59; Status DC Gabapentin (Neurontin) 200 mg QAM PO Last administered on 03/10/17 08:04; Start 02/25/17 at 09:00; Stop 03/27/17 at 08:59 Gabapentin (Neurontin) 400 mg QHS PO Last administered on 03/09/17 21:16; Start 02/04/17 at 21:00; Stop 04/04/17 at 20:59 Haloperidol Decanoate (Haldol Decanoate) 50 mg Q14D IM ; Start 03/10/17 at 14:45 ; Stop 04/09/17 at 14:44; Status UNV Haloperidol Decanoate (Haldol Decanoate) 50 mg Q14D STAT IM ; Start 02/18/17 at 20:24; Stop 02/18/17 at 20:25; Status Cancel Haloperidol Decanoate (Haldol Decanoate) 50 mg Q14D@14 IM Last administered on 03/04/17 13:27; Start 02/04/17 at 14:00; Stop 03/06/17 at 13:59; Status DC Home Med (Med Rec Complete!) ASDIRECTED XX ; Start 02/03/17 at 12:15; Stop at 12:15; Status DC Lorazepam (Ativan) 1 mg Q8HP PRN PO ANXIETY/AGITATION Last administered on 20:52; Start 02/03/17 at 15:45; Stop 02/26/17 at 12:48; Status DC Lorazepam (Ativan) 1 mg TID PO Last administered on 03/07/17 08:12; Start 08/05 at 16:00; Stop 03/31/17 at 15:44 Magnesium Hydroxide (Milk Of Magnesia) 30 ml DAILYPRN PRN PO CONSTIPATION; Start 02/03/17 at 15:45; Stop 03/05/17 at 15:44; Status DC Magnesium Hydroxide (Milk Of Magnesia) 30 ml DAILYPRN PRN PO CONSTIPATION; Start 03/05/17 at 19:15; Stop 04/04/17 at 19:14 Mirtazapine (Remeron) 15 mg QHS PO Last administered on 02/27/17 21:37; Start 02/04/17 at 21:00; Stop 02/28/17 at 09:19; Status DC Mirtazapine (Remeron) 30 mg QHS PO Last administered on 03/06/17 20:04; Start 02/28/17 at 21:00; Stop 03/30/17 at 20:59 Miscellaneous (Unresolved Clarification Entry) SEE LABEL COMMENTS UNRESOLVED XX ; Start 03/07/17 at 00:01; Stop 04/06/17 at 00:00 Nicotine (Nicoderm Cq 21mg) 1 patch DAILY TD Last administered on 03/10/17 08: 04; Start 02/04/17 at 09:00; Stop 04/04/17 at 08:59 Olanzapine (ZyPREXA) 10 mg DAILY PO Last administered on 02/04/17 08:59; Start 02/03/17 at 09:00; Stop 02/04/17 at 14:20; Status DC Quetiapine Fumarate (SEROquel) 200 mg QHS PO ; Start 02/04/17 at 21:00; Stop at 13:42; Status DC Trazodone HCl (Desyrel) 50 mg QHSP PRN PO INSOMNIA; Start 02/03/17 at 16:45; Stop 03/05/17 at 16:44; Status Cancel Trazodone HCl (Desyrel) 50 mg QHSP PRN PO INSOMNIA Last administered on 21:49; Start 02/28/17 at 12:45; Stop 03/30/17 at 12:44 Venlafaxine HCl (Effexor Xr) 75 mg DAILY PO Last administered on 02/06/17 08:28; Start 02/04/17 at 09:00; Stop 02/06/17 at 18:02; Status DC Venlafaxine HCl (Effexor Xr) 150 mg BID PO Last administered on 03/10/17 08:03; Start 5/19/17 at 09:00; Stop 04/06/17 at 08:59 Venlafaxine HCl (Effexor Xr) 150 mg QHS PO Last administered on 02/23/17 21 :05; Start 02/07/17 at 21:00; Stop 02/24/17 at 17:59; Status DC Venlafaxine HCl (Effexor) 150 mg BID PO Last administered on 03/06/17 20:04; Start 02/24/17 at 21:00; Stop 03/06/17 at 23:26; Status DC Allergies Coded Allergies: Loxapine (Verified Allergy, Mild, 01/21/13) Thiothixene (Verified Allergy, Mild, 01/21/13) Fluphenazine (Verified Allergy, Unknown, 09/12/15) UNKNOWN [place] (Verified Allergy, Unknown, UNKNOWN, 09/12/15) Meperidine (Verified Allergy, Unknown, UNKNOWN, 09/12/15) Phenothiazines (Verified Allergy, Unknown, UNKNOWN, 09/12/15) Thioridazine (Verified Allergy, Unknown, UNKNOWN, 09/12/15) KELVIN GARIBAY MD March 10, 2017 15:09
[2017-03-10 18:00] VITALS: BP 120/71
[2017-03-10] MEDS: ARIPiprazole 10 MG TAB PO SCH (20:28)
[2017-03-10] MEDS: GABAPENTIN 400 MG CAP PO SCH (21:00)
[2017-03-10] MEDS: MIRTAZAPINE 15 MG TAB PO SCH (21:00)
[2017-03-11 06:59] VITALS: BP 111/65
[2017-03-11] MEDS: VENLAFAXINE **XR** 75MG CAPSULE PO SCH ×2 (07:51→21:38)
[2017-03-11] MEDS: NICOTINE 21MG/24HR 1 EA TRANSDERMAL TD SCH (07:51)
[2017-03-11] MEDS: GABAPENTIN 100 MG CAP PO SCH (07:51)
[2017-03-11] MEDS: ARIPiprazole 10 MG TAB PO SCH ×2 (07:51→21:39)
[2017-03-11] MEDS: LORazepam 1 MG TAB PO SCH ×3 (07:53→21:00)
[2017-03-11] MEDS: BENZTROPINE 1 MG TAB PO SCH ×2 (07:53→21:00)
[2017-03-11] MEDS: DOCUSATE SODIUM 100 MG CAP PO SCH ×2 (07:53→21:00)
--- NOTE | 2017-03-11 14:05 | MHIPNPDOC ---
[facility] Progress Note Progress Note DATE OF SERVICE: 03/11/17 INTERVAL HISTORY: Medication Side effects: Denies medication side effects Behavior: Continues to be isolated to his room, has poor social interaction with peers and staff Group Attendance: Continues to attend groups Psychiatric Symptom change: Has more energy, less isolated to his room although he continues to be part VITAL SIGNS: See below. NEW TEST RESULTS: See below CURRENT MEDICATIONS: See below. MENTAL STATUS EXAMINATION: General: Alert, cooperative but guarded and suspicious. Poor eye contact Speech: Soft spoken, tangential at times, Thought processes: Illogical Thought content: Perseverates about feeling threatened and scared about people around him. He continues to believe that somebody wants to kill. Abstract reasoning, and computation: Poor Description of associations: Poor Description of abnormal or psychotic thoughts: Paranoid, persecutory delusional thoughts. He hasn't been seen responding to internal stimuli but he continues to believe that people are against him, stealing from him and willing to kill him. Judgment: poor Insight: Poor Orientation: Oriented to place and person only Recent and remote memory: Poor Attention span and concentration: Poor Fund of knowledge: Unable to assess Mood: Irritable Affect: Constricted, irritable DIAGNOSES: 1. Paranoid schizophrenia, chronic. 2. Major depressive disorder ASSESSMENT: Patient continues to be very paranoid. His dose of Abilify has been increased, hoping that this will improve his psychosis. Patient is due for another Haldol Decanoate injection on March 18. MANAGEMENT PLAN: Medications: Will continue with current medications Psychotherapy: Will continued to encouraged him to attend groups Social: -- Misc: -- Disposition: Continue at the inpatient mental health unit and then, when possible, transfer to [place]. TIME SPENT: 15 minutes. Vital Signs Vital Signs Date Time Temp Pulse Resp B/P (MAP) Pulse Ox O2 Delivery O2 Flow Rate FiO2 03/11/17 06:59 98.9 94 18 111/65 (80) Current Medications Current Medications Acetaminophen (Tylenol Tab) 650 mg Q6HP PRN PO HEADACHE or DISCOMFORT Last administered on 02/11/17t 23:30; Start 02/03/17 at 15:45; Stop 04/04/17 at 15:44 Acetaminophen (Tylenol Tab) 650 mg Q6HP PRN PO HEADACHE or DISCOMFORT; Start at 19:15; Stop 04/04/17 at 19:14; Status Cancel Al Hydrox/Mg Hydrox/Simethicone (Mylanta) 30 ml Q4HP PRN PO HEARTBURN/ INDIGESTION; Start 02/03/17 at 15:45; Stop 03/05/17 at 15:44; Status DC Al Hydrox/Mg Hydrox/Simethicone (Mylanta) 30 ml Q4HP PRN PO HEARTBURN/ INDIGESTION; Start 03/05/17 at 19:30; Stop 04/04/17 at 19:29 Al Hydrox/Mg Hydrox/Simethicone (Mylanta) 30 ml Q4HP PRN PO HEARTBURN/ INDIGESTION; Start 03/06/17 at 10:00; Stop 04/04/17 at 09:59; Status Cancel Aripiprazole (AbiLIFY) 2.5 mg QHS PO Last administered on 02/16/17 20:07; Start 02/07/17 at 21:00; Stop 02/17/17 at 12:25; Status DC Aripiprazole (AbiLIFY) 5 mg QHS PO Last administered on 02/23/17 21:06; Start 02/17/17 at 21:00; Stop 02/24/17 at 17:48; Status DC Aripiprazole (AbiLIFY) 7.5 mg BID PO Last administered on 02/25/17 08:02; Start 02/24/17 at 21:00; Stop 02/25/17 at 11:54; Status DC Aripiprazole (AbiLIFY) 10 mg BID PO Last administered on 03/03/17 08:14; Start 02/25/17 at 21:00; Stop 03/03/17 at 10:13; Status DC Aripiprazole (AbiLIFY) 15 mg BID PO Last administered on 03/08/17 08:08; Start 03/03/17 at 21:00; Stop 03/08/17 at 08:14; Status DC Aripiprazole (AbiLIFY) 15 mg BID PO ; Start 03/08/17 at 09:00; Stop 04/02/17 at 20:59; Status Cancel Aripiprazole (AbiLIFY) 15 mg BID PO Last administered on 03/10/17 08:03; Start 03/08/17 at 21:00; Stop 03/10/17 at 15:14; Status DC Aripiprazole (AbiLIFY) 20 mg BID PO Last administered on 03/11/17 07:51; Start 03/10/17 at 21:00; Stop 04/09/17 at 20:59 Benztropine Mesylate (Cogentin) 0.5 mg BID PO Last administered on 02/23/17 08: 43; Start 02/04/17 at 09:00; Stop 02/23/17 at 13:41; Status DC Benztropine Mesylate (Cogentin) 1 mg BID PO Last administered on 03/07/17 08: 12; Start 02/23/17 at 09:00; Stop 03/25/17 at 08:59 Buspirone HCl (Buspar) 7.5 mg TID PO Last administered on 02/26/17 08:04; Start 02/04/17 at 16:00; Stop 02/26/17 at 12:48; Status DC Docusate Sodium (Colace) 100 mg BID PO Last administered on 03/10/17 20:28; Start 02/03/17 at 21:00; Stop 04/04/17 at 20:59 Gabapentin (Neurontin) 100 mg QAM PO Last administered on 02/24/17 08:14; Start 02/04/17 at 09:00; Stop 02/24/17 at 17:59; Status DC Gabapentin (Neurontin) 200 mg QAM PO Last administered on 03/11/17 07:51; Start 02/25/17 at 09:00; Stop 03/27/17 at 08:59 Gabapentin (Neurontin) 400 mg QHS PO Last administered on 03/09/17 21:16; Start 02/04/17 at 21:00; Stop 04/04/17 at 20:59 Haloperidol Decanoate (Haldol Decanoate) 50 mg Q14D STAT IM ; Start 02/18/17 at 20:24; Stop 02/18/17 at 20:25; Status Cancel Haloperidol Decanoate (Haldol Decanoate) 50 mg Q14D@0900 IM ; Start 03/18/17 at 09:00; Stop 04/17/17 at 08:59 Haloperidol Decanoate (Haldol Decanoate) 50 mg Q14D@14 IM Last administered on 03/04/17 13:27; Start 02/04/17 at 14:00; Stop 03/06/17 at 13:59; Status DC Home Med (Med Rec Complete!) ASDIRECTED XX ; Start 02/03/17 at 12:15; Stop at 12:15; Status DC Lorazepam (Ativan) 1 mg Q8HP PRN PO ANXIETY/AGITATION Last administered on 20:52; Start 02/03/17 at 15:45; Stop 02/26/17 at 12:48; Status DC Lorazepam (Ativan) 1 mg TID PO Last administered on 03/07/17 08:12; Start 08/05 at 16:00; Stop 03/31/17 at 15:44 Magnesium Hydroxide (Milk Of Magnesia) 30 ml DAILYPRN PRN PO CONSTIPATION; Start 02/03/17 at 15:45; Stop 03/05/17 at 15:44; Status DC Magnesium Hydroxide (Milk Of Magnesia) 30 ml DAILYPRN PRN PO CONSTIPATION; Start 03/05/17 at 19:15; Stop 04/04/17 at 19:14 Mirtazapine (Remeron) 15 mg QHS PO Last administered on 02/27/17 21:37; Start 02/04/17 at 21:00; Stop 02/28/17 at 09:19; Status DC Mirtazapine (Remeron) 30 mg QHS PO Last administered on 03/06/17 20:04; Start 02/28/17 at 21:00; Stop 03/30/17 at 20:59 Miscellaneous (Unresolved Clarification Entry) SEE LABEL COMMENTS UNRESOLVED XX ; Start 03/07/17 at 00:01; Stop 03/10/17 at 15:08; Status DC Nicotine (Nicoderm Cq 21mg) 1 patch DAILY TD Last administered on 03/11/17 07: 51; Start 02/04/17 at 09:00; Stop 04/04/17 at 08:59 Olanzapine (ZyPREXA) 10 mg DAILY PO Last administered on 02/04/17 08:59; Start 02/03/17 at 09:00; Stop 02/04/17 at 14:20; Status DC Quetiapine Fumarate (SEROquel) 200 mg QHS PO ; Start 02/04/17 at 21:00; Stop at 13:42; Status DC Trazodone HCl (Desyrel) 50 mg QHSP PRN PO INSOMNIA; Start 02/03/17 at 16:45; Stop 03/05/17 at 16:44; Status Cancel Trazodone HCl (Desyrel) 50 mg QHSP PRN PO INSOMNIA Last administered on 21:49; Start 02/28/17 at 12:45; Stop 03/10/17 at 15:11; Status DC Venlafaxine HCl (Effexor Xr) 75 mg DAILY PO Last administered on 02/06/17 08:28; Start 02/04/17 at 09:00; Stop 02/06/17 at 18:02; Status DC Venlafaxine HCl (Effexor Xr) 150 mg BID PO Last administered on 03/11/17 07:51; Start 03/07/17 at 09:00; Stop 04/06/17 at 08:59 Venlafaxine HCl (Effexor Xr) 150 mg QHS PO Last administered on 02/23/17 21 :05; Start 02/07/17 at 21:00; Stop 02/24/17 at 17:59; Status DC Venlafaxine HCl (Effexor) 150 mg BID PO Last administered on 03/06/17 20:04; Start 02/24/17 at 21:00; Stop 03/06/17 at 23:26; Status DC Allergies Coded Allergies: Loxapine (Verified Allergy, Mild, 01/21/13) Thiothixene (Verified Allergy, Mild, 01/21/13) Fluphenazine (Verified Allergy, Unknown, 09/12/15) UNKNOWN [place] (Verified Allergy, Unknown, UNKNOWN, 09/12/15) Meperidine (Verified Allergy, Unknown, UNKNOWN, 09/12/15) Phenothiazines (Verified Allergy, Unknown, UNKNOWN, 09/12/15) Thioridazine (Verified Allergy, Unknown, UNKNOWN, 09/12/15) KELVIN GARIBAY MD March 11, 2017 14:04
[2017-03-11 18:00] VITALS: BP 111/69
[2017-03-11] MEDS: GABAPENTIN 400 MG CAP PO SCH (21:00)
[2017-03-11] MEDS: MIRTAZAPINE 15 MG TAB PO SCH (21:00)
[2017-03-12] MEDS: NICOTINE 21MG/24HR 1 EA TRANSDERMAL TD SCH (08:02)
[2017-03-12] MEDS: ARIPiprazole 10 MG TAB PO SCH ×2 (08:03→21:00)
[2017-03-12] MEDS: GABAPENTIN 100 MG CAP PO SCH (08:03)
[2017-03-12] MEDS: VENLAFAXINE **XR** 75MG CAPSULE PO SCH ×2 (08:03→21:00)
[2017-03-12] MEDS: DOCUSATE SODIUM 100 MG CAP PO SCH ×2 (08:53→21:00)
[2017-03-12] MEDS: LORazepam 1 MG TAB PO SCH ×3 (08:53→21:00)
[2017-03-12] MEDS: BENZTROPINE 1 MG TAB PO SCH ×2 (08:53→21:00)
--- NOTE | 2017-03-12 10:37 | MHIPNPDOC ---
[facility] Progress Note Progress Note DATE OF SERVICE: 03/12/17 INTERVAL HISTORY: Medication Side effects: Denies Behavior: He keeps isolative to his room, not aggressive and nonviolent behavior. Difficult to engage, guarded. Group Attendance: Attends groups Psychiatric Symptom change: He continues to be paranoid but denies auditory and visual hallucinations. He has denied seeing people coming into his room to steal his clothes. VITAL SIGNS: See below. NEW TEST RESULTS: See below CURRENT MEDICATIONS: See below. MENTAL STATUS EXAMINATION: General: Alert, cooperative with interview but guarded. Poor eye contact, always covers his years with his hands as if he is not willing to hear something. Speech: Sparse Thought processes: Disorganized Thought content: Perseverates about being tired of being at the inpatient mental health unit. He states "I'm fet up to be here" Abstract reasoning, and computation: Poor Description of associations: Loose at times Description of abnormal or psychotic thoughts: Paranoid, persecutory delusions. He auditory and visual hallucinations and he hasn't reported people coming into into his room to steal things from him, which were most likely visual hallucinations. Judgment: Poor Insight: Poor Orientation: Oriented to place and person only Recent and remote memory: Impaired due to cognitive deficits caused by chronic schizophrenia Attention span and concentration: Fair Fund of knowledge: Unable to assess Mood: Irritable Affect: Constricted DIAGNOSES: 1. Paranoid schizophrenia, chronic. 2. Major depression. ASSESSMENT: Patient has had minimal improvement in spite of several medication adjustments and changes but he has more energy and he has stopped reporting people coming into his room to steal things from him or to attack him, which is important because those were visual hallucinations that apparently he is not having anymore. MANAGEMENT PLAN: Medications: Will continue with current medications and increase Abilify even more next week. Psychotherapy: Will encourage him to continue attending groups Social: -- Misc: -- Disposition: Patient will be transferred to [facility] was a bed becomes available for him. TIME SPENT: 15 minutes. Vital Signs Vital Signs Date Time Temp Pulse Resp B/P (MAP) Pulse Ox O2 Delivery O2 Flow Rate FiO2 03/11/17 18:00 100.1 87 16 111/69 (83) Current Medications Current Medications Acetaminophen (Tylenol Tab) 650 mg Q6HP PRN PO HEADACHE or DISCOMFORT Last administered on 02/11/17t 23:30; Start 4/17/17 at 15:45; Stop 04/04/17 at 15:44 Acetaminophen (Tylenol Tab) 650 mg Q6HP PRN PO HEADACHE or DISCOMFORT; Start at 19:15; Stop 04/04/17 at 19:14; Status Cancel Al Hydrox/Mg Hydrox/Simethicone (Mylanta) 30 ml Q4HP PRN PO HEARTBURN/ INDIGESTION; Start 02/03/17 at 15:45; Stop 03/05/17 at 15:44; Status DC Al Hydrox/Mg Hydrox/Simethicone (Mylanta) 30 ml Q4HP PRN PO HEARTBURN/ INDIGESTION; Start 03/05/17 at 19:30; Stop 04/04/17 at 19:29 Al Hydrox/Mg Hydrox/Simethicone (Mylanta) 30 ml Q4HP PRN PO HEARTBURN/ INDIGESTION; Start 03/06/17 at 10:00; Stop 04/04/17 at 09:59; Status Cancel Aripiprazole (AbiLIFY) 2.5 mg QHS PO Last administered on 02/16/17 20:07; Start 02/07/17 at 21:00; Stop 02/17/17 at 12:25; Status DC Aripiprazole (AbiLIFY) 5 mg QHS PO Last administered on 02/23/17 21:06; Start 02/17/17 at 21:00; Stop 02/24/17 at 17:48; Status DC Aripiprazole (AbiLIFY) 7.5 mg BID PO Last administered on 02/25/17 08:02; Start 02/24/17 at 21:00; Stop 02/25/17 at 11:54; Status DC Aripiprazole (AbiLIFY) 10 mg BID PO Last administered on 03/03/17 08:14; Start 02/25/17 at 21:00; Stop 03/03/17 at 10:13; Status DC Aripiprazole (AbiLIFY) 15 mg BID PO Last administered on 03/08/17 08:08; Start 03/03/17 at 21:00; Stop 03/08/17 at 08:14; Status DC Aripiprazole (AbiLIFY) 15 mg BID PO ; Start 03/08/17 at 09:00; Stop 04/02/17 at 20:59; Status Cancel Aripiprazole (AbiLIFY) 15 mg BID PO Last administered on 03/10/17 08:03; Start 03/08/17 at 21:00; Stop 03/10/17 at 15:14; Status DC Aripiprazole (AbiLIFY) 20 mg BID PO Last administered on 03/12/17 08:03; Start 03/10/17 at 21:00; Stop 04/09/17 at 20:59 Benztropine Mesylate (Cogentin) 0.5 mg BID PO Last administered on 02/23/17 08: 43; Start 02/04/17 at 09:00; Stop 02/23/17 at 13:41; Status DC Benztropine Mesylate (Cogentin) 1 mg BID PO Last administered on 03/07/17 08: 12; Start 02/23/17 at 09:00; Stop 03/25/17 at 08:59 Buspirone HCl (Buspar) 7.5 mg TID PO Last administered on 02/26/17 08:04; Start 02/04/17 at 16:00; Stop 02/26/17 at 12:48; Status DC Docusate Sodium (Colace) 100 mg BID PO Last administered on 03/10/17 20:28; Start 02/03/17 at 21:00; Stop 04/04/17 at 20:59 Gabapentin (Neurontin) 100 mg QAM PO Last administered on 02/24/17 08:14; Start 02/04/17 at 09:00; Stop 02/24/17 at 17:59; Status DC Gabapentin (Neurontin) 200 mg QAM PO Last administered on 03/12/17 08:03; Start 02/25/17 at 09:00; Stop 03/27/17 at 08:59 Gabapentin (Neurontin) 400 mg QHS PO Last administered on 03/09/17 21:16; Start 02/04/17 at 21:00; Stop 04/04/17 at 20:59 Haloperidol Decanoate (Haldol Decanoate) 50 mg Q14D STAT IM ; Start 02/18/17 at 20:24; Stop 02/18/17 at 20:25; Status Cancel Haloperidol Decanoate (Haldol Decanoate) 50 mg Q14D@0900 IM ; Start 03/18/17 at 09:00; Stop 04/17/17 at 08:59 Haloperidol Decanoate (Haldol Decanoate) 50 mg Q14D@14 IM Last administered on 03/04/17 13:27; Start 02/04/17 at 14:00; Stop 03/06/17 at 13:59; Status DC Home Med (Med Rec Complete!) ASDIRECTED XX ; Start 02/03/17 at 12:15; Stop at 12:15; Status DC Lorazepam (Ativan) 1 mg Q8HP PRN PO ANXIETY/AGITATION Last administered on 20:52; Start 02/03/17 at 15:45; Stop 02/26/17 at 12:48; Status DC Lorazepam (Ativan) 1 mg TID PO Last administered on 03/07/17 08:12; Start 08/05 at 16:00; Stop 03/31/17 at 15:44 Magnesium Hydroxide (Milk Of Magnesia) 30 ml DAILYPRN PRN PO CONSTIPATION; Start 02/03/17 at 15:45; Stop 03/05/17 at 15:44; Status DC Magnesium Hydroxide (Milk Of Magnesia) 30 ml DAILYPRN PRN PO CONSTIPATION; Start 03/05/17 at 19:15; Stop 04/04/17 at 19:14 Mirtazapine (Remeron) 15 mg QHS PO Last administered on 02/27/17 21:37; Start 02/04/17 at 21:00; Stop 02/28/17 at 09:19; Status DC Mirtazapine (Remeron) 30 mg QHS PO Last administered on 03/06/17 20:04; Start 02/28/17 at 21:00; Stop 03/30/17 at 20:59 Miscellaneous (Unresolved Clarification Entry) SEE LABEL COMMENTS UNRESOLVED XX ; Start 03/07/17 at 00:01; Stop 03/10/17 at 15:08; Status DC Nicotine (Nicoderm Cq 21mg) 1 patch DAILY TD Last administered on 03/12/17 08: 02; Start 02/04/17 at 09:00; Stop 04/04/17 at 08:59 Olanzapine (ZyPREXA) 10 mg DAILY PO Last administered on 02/04/17 08:59; Start 02/03/17 at 09:00; Stop 02/04/17 at 14:20; Status DC Quetiapine Fumarate (SEROquel) 200 mg QHS PO ; Start 02/04/17 at 21:00; Stop at 13:42; Status DC Trazodone HCl (Desyrel) 50 mg QHSP PRN PO INSOMNIA; Start 02/03/17 at 16:45; Stop 03/05/17 at 16:44; Status Cancel Trazodone HCl (Desyrel) 50 mg QHSP PRN PO INSOMNIA Last administered on 21:49; Start 02/28/17 at 12:45; Stop 03/10/17 at 15:11; Status DC Venlafaxine HCl (Effexor Xr) 75 mg DAILY PO Last administered on 02/06/17 08:28; Start 02/04/17 at 09:00; Stop 02/06/17 at 18:02; Status DC Venlafaxine HCl (Effexor Xr) 150 mg BID PO Last administered on 03/12/17 08:03; Start 03/07/17 at 09:00; Stop 04/06/17 at 08:59 Venlafaxine HCl (Effexor Xr) 150 mg QHS PO Last administered on 02/23/17 21 :05; Start 02/07/17 at 21:00; Stop 02/24/17 at 17:59; Status DC Venlafaxine HCl (Effexor) 150 mg BID PO Last administered on 03/06/17 20:04; Start 02/24/17 at 21:00; Stop 03/06/17 at 23:26; Status DC Allergies Coded Allergies: Loxapine (Verified Allergy, Mild, 01/21/13) Thiothixene (Verified Allergy, Mild, 01/21/13) Fluphenazine (Verified Allergy, Unknown, 09/12/15) UNKNOWN [place] (Verified Allergy, Unknown, UNKNOWN, 09/12/15) Meperidine (Verified Allergy, Unknown, UNKNOWN, 09/12/15) Phenothiazines (Verified Allergy, Unknown, UNKNOWN, 09/12/15) Thioridazine (Verified Allergy, Unknown, UNKNOWN, 09/12/15) KELVIN GARIBAY MD March 12, 2017 10:37
[2017-03-12 18:00] VITALS: BP 103/68
[2017-03-12] MEDS: MIRTAZAPINE 15 MG TAB PO SCH (21:00)
[2017-03-12] MEDS: GABAPENTIN 400 MG CAP PO SCH (21:00)
[2017-03-13] MEDS: NICOTINE 21MG/24HR 1 EA TRANSDERMAL TD SCH (08:03)
[2017-03-13] MEDS: DOCUSATE SODIUM 100 MG CAP PO SCH ×2 (09:33→21:00)
[2017-03-13] MEDS: LORazepam 1 MG TAB PO SCH ×4 (09:33→21:00)
[2017-03-13] MEDS: BENZTROPINE 1 MG TAB PO SCH ×2 (09:33→21:00)
[2017-03-13] MEDS: ARIPiprazole 10 MG TAB PO SCH ×2 (09:33→21:00)
[2017-03-13] MEDS: VENLAFAXINE **XR** 75MG CAPSULE PO SCH ×2 (09:33→21:00)
[2017-03-13] MEDS: GABAPENTIN 100 MG CAP PO SCH (09:33)
[2017-03-13 17:52] LABS: BASO # 0.1 K/mm3 (0.0-0.2); BASO % 0.8 % (0.0-1.0); EOS # 0.4 K/mm3 (0.0-0.50); LARGE UNSTAINED CELL # 0.3 K/mm3 (0.0-0.4); LARGE UNSTAINED CELL % 3.2 % (0.0-4.0); LYMPH # 2.1 K/mm3 (1.5-4.5); LYMPH % 23.6 % (24.0-44.0); MEAN CORPUSCULAR HEMOGLOBIN 32.3 pg (27.0-33.0); MEAN CORPUSCULAR HGB CONC 36.4 g/dl (32.0-36.5); MEAN CORPUSCULAR VOLUME 88.6 fl (80.0-96.0); MONO # 0.6 K/mm3 (0.0-0.8); MONO % 6.3 % (0.0-5.0); NEUTROPHILS # 5.6 K/mm3 (1.8-7.7); NEUTROPHILS % 62.1 % (36.0-66.0); PLATELET COUNT, AUTOMATED 225 k/mm3 (150-450); RED CELL DISTRIBUTION WIDTH 12.6 % (11.5-14.5)
--- NOTE | 2017-03-13 19:56 | IPN ---
DATE: 03/13/2017 52-year-old male with history of paranoid schizophrenia who continues to be psychotic, although he is less withdrawn, less isolated to his room as he was before. He denies visual or auditory hallucinations, but at the same time he states that there are people who are coming into his room and using his toilet and they are throwing all sorts of things in the toilet and for that reason it has been plugged. The patient denies homicidal ideation, denies suicidal ideation, denies paranoid or persecutory thoughts, but at the same time he perseverates on the fact that the mob is out to get him, that there are nasty people in the parking lot that are just waiting for him to be discharged to kill him, that there are people that come to visit other patients here at night and they give him nasty looks because they are against him and because they belong to a criminal organization that wants to get rid of him. His thought process is irrational, illogical, full of bizarre ideations. His thought content is as it was stated before, positive for delusional thoughts and although he denies hallucinations he confirms them when he states all of these things that are not really happening. His attention and concentration are poor because he responds to internal stimuli, his memory, recent and remote are poor, because the patient is cognitively damaged due to the care home treatment and the care home of his illness that causes damage. Schizophrenia can damage the brain on the care home. His judgment and insight are poor and his impulse control is fair. The patient continues to be unstable and unfortunately he will not be received at [facility] for care home treatment and hospitalization because one of the patients at [facility] has a restraining order against [facility]. Until now he has not responded to medications and he has been in different hospitals for longer periods of time. So it was decided that he probably should be initiated on Clozaril. He states that he already used Clozaril before, but also is not sure about that because there is no record, if he used it or he did not use it. He has disagreed to have blood drawn from him several times, but this afternoon he has agreed after this author spoke to him about the importance of having his blood drawn to start him on a different medication and because he needs to have his liver enzymes checked. At this time, the patient is stable, but continues to be psychotic. He has not been aggressive or violent, but he gets angry and when he does he isolates to his room. He does not engage in any social activity or conversation with the rest of the patients or with staff members and this is due to the fact that he is very scared, very anxious of being murdered because he has constant delusions about this issue that are paranoid and persecutory. Will wait for patient's results for CBC and differential and for liver profile if the veterinarian laboratory animal care was able to draw all the blood, because he still posed some resistance. If his CBC with differential is within the normal range, we will start him on Clozaril this week. Will followup.
[2017-03-13] MEDS: MIRTAZAPINE 15 MG TAB PO SCH (21:00)
[2017-03-13] MEDS: GABAPENTIN 400 MG CAP PO SCH (21:00)
[2017-03-14] MEDS: NICOTINE 21MG/24HR 1 EA TRANSDERMAL TD SCH (08:05)
[2017-03-14] MEDS: DOCUSATE SODIUM 100 MG CAP PO SCH ×2 (08:05→21:00)
[2017-03-14] MEDS: ARIPiprazole 10 MG TAB PO SCH (08:05)
[2017-03-14] MEDS: GABAPENTIN 100 MG CAP PO SCH (08:05)
[2017-03-14] MEDS: VENLAFAXINE **XR** 75MG CAPSULE PO SCH ×2 (08:05→21:00)
[2017-03-14] MEDS: BENZTROPINE 1 MG TAB PO SCH ×2 (08:05→21:00)
[2017-03-14] MEDS: LORazepam 1 MG TAB PO SCH ×3 (08:05→21:00)
--- NOTE | 2017-03-14 14:40 | MHIPNPDOC ---
[facility] Progress Note Progress Note DATE OF SERVICE: 03/14/17 INTERVAL HISTORY: Medication Side effects: Denies Behavior: Isolated to his room, slightly less guarded than before but continues to be suspicious and paranoid Group Attendance: And has been attending groups Psychiatric Symptom change: Has been less guarded, more active, less isolated. VITAL SIGNS: See below. NEW TEST RESULTS: See below CURRENT MEDICATIONS: See below. MENTAL STATUS EXAMINATION: General: Alert, guarded but cooperative, poor eye contact. Speech: Sparse and sometimes tangential Thought processes: Irrational Thought content: Perseverates about "what's my plan, where am I going to go now "? Abstract reasoning, and computation: Impaired Description of associations: Not loose Description of abnormal or psychotic thoughts: Delusional, paranoid persecutory type. He denies auditory and visual hallucinations and this time has denied seeing people coming into his bedroom to use the toilet or to steal his clothes. Judgment: Poor Insight: Poor Orientation: Oriented 3 Recent and remote memory: Impaired Attention span and concentration: Poor Fund of knowledge: Unable to assess Mood: "I'm okay" Affect: Constricted, irritable DIAGNOSES: 1. Paranoid schizophrenia, chronic. 2. Major depressive disorder. 3. And anxiety. ASSESSMENT: Patient still needs a higher level of care and long-term treatment hospitalization. His family independence case manager continues to make arrangements for him to be transferred to a hospital where he can receive long-term treatment. He will restarted on Clozaril and slowly Abilify will be tapered down but will not be discontinued. MANAGEMENT PLAN: Medications: We'll continue on the same medications except for Clozaril that has been ordered today. He already GOT a CBC with differential yesterday and his white blood were within the normal range. Psychotherapy: Will encourage him to keep attending groups Social: -- Misc: -- Disposition: Patient needs a higher level of care and then first will be continued for him to be transferred to an institution that Provided him with a higher level of care. TIME SPENT: 15 minutes. Vital Signs Vital Signs Date Time Temp Pulse Resp B/P (MAP) Pulse Ox O2 Delivery O2 Flow Rate FiO2 03/12/17 18:00 97.8 95 16 103/68 (80) Room Air Laboratory Data 24H Labs Laboratory Tests 2 03/13/17 17:26: White Blood Count 9.0, Red Blood Count 5.18, Hemoglobin 16.7, Hematocrit 45.9, Mean Corpuscular Volume 88.6, Mean Corpuscular Hemoglobin 32.3, Mean Corpuscular Hemoglobin Concent 36.4, Red Cell Distribution Width 12.6, Platelet Count 225, Neutrophils (%) (Auto) 62.1, Lymphocytes (%) (Auto) 23.6L, Monocytes (%) (Auto) 6.3H, Eosinophils (%) (Auto) 4.0H, Basophils (%) (Auto) 0.8, Neutrophils # (Auto) 5.6, Lymphocytes # (Auto) 2.1, Monocytes # (Auto) 0.6, Eosinophils # (Auto) 0.4, Basophils # (Auto) 0.1, Large Unclassified Cells % 3.2 , Large Unclassified Cells # 0.3 CBC/BMP Laboratory Tests 03/13/17 17:26 Red Blood Count 5.18, Mean Corpuscular Volume 88.6, Mean Corpuscular Hemoglobin 32.3, Mean Corpuscular Hemoglobin Concent 36.4, Red Cell Distribution Width 12.6 , Neutrophils (%) (Auto) 62.1, Lymphocytes (%) (Auto) 23.6 L, Monocytes (%) ( Auto) 6.3 H, Eosinophils (%) (Auto) 4.0 H, Basophils (%) (Auto) 0.8, Neutrophils # (Auto) 5.6, Lymphocytes # (Auto) 2.1, Monocytes # (Auto) 0.6, Eosinophils # (Auto) 0.4, Basophils # (Auto) 0.1 Current Medications Current Medications Acetaminophen (Tylenol Tab) 650 mg Q6HP PRN PO HEADACHE or DISCOMFORT Last administered on 02/11/17t 23:30; Start 02/03/17 at 15:45; Stop 04/04/17 at 15:44 Acetaminophen (Tylenol Tab) 650 mg Q6HP PRN PO HEADACHE or DISCOMFORT; Start at 19:15; Stop 04/04/17 at 19:14; Status Cancel Al Hydrox/Mg Hydrox/Simethicone (Mylanta) 30 ml Q4HP PRN PO HEARTBURN/ INDIGESTION; Start 02/03/17 at 15:45; Stop 03/05/17 at 15:44; Status DC Al Hydrox/Mg Hydrox/Simethicone (Mylanta) 30 ml Q4HP PRN PO HEARTBURN/ INDIGESTION; Start 03/05/17 at 19:30; Stop 04/04/17 at 19:29 Al Hydrox/Mg Hydrox/Simethicone (Mylanta) 30 ml Q4HP PRN PO HEARTBURN/ INDIGESTION; Start 03/06/17 at 10:00; Stop 04/04/17 at 09:59; Status Cancel Aripiprazole (AbiLIFY) 2.5 mg QHS PO Last administered on 02/16/17 20:07; Start 02/07/17 at 21:00; Stop 02/17/17 at 12:25; Status DC Aripiprazole (AbiLIFY) 5 mg QHS PO Last administered on 02/23/17 21:06; Start 02/17/17 at 21:00; Stop 02/24/17 at 17:48; Status DC Aripiprazole (AbiLIFY) 7.5 mg BID PO Last administered on 02/25/17 08:02; Start 02/24/17 at 21:00; Stop 02/25/17 at 11:54; Status DC Aripiprazole (AbiLIFY) 10 mg BID PO Last administered on 03/03/17 08:14; Start 02/25/17 at 21:00; Stop 03/03/17 at 10:13; Status DC Aripiprazole (AbiLIFY) 15 mg BID PO Last administered on 03/08/17 08:08; Start 03/03/17 at 21:00; Stop 03/08/17 at 08:14; Status DC Aripiprazole (AbiLIFY) 15 mg BID PO ; Start 03/08/17 at 09:00; Stop 04/02/17 at 20:59; Status Cancel Aripiprazole (AbiLIFY) 15 mg BID PO Last administered on 03/10/17 08:03; Start 03/08/17 at 21:00; Stop 03/10/17 at 15:14; Status DC Aripiprazole (AbiLIFY) 20 mg BID PO Last administered on 03/14/17 08:05; Start 03/10/17 at 21:00; Stop 04/09/17 at 20:59 Benztropine Mesylate (Cogentin) 0.5 mg BID PO Last administered on 02/23/17 08: 43; Start 02/04/17 at 09:00; Stop 02/23/17 at 13:41; Status DC Benztropine Mesylate (Cogentin) 1 mg BID PO Last administered on 03/14/17 08: 05; Start 02/23/17 at 09:00; Stop 03/25/17 at 08:59 Buspirone HCl (Buspar) 7.5 mg TID PO Last administered on 02/26/17 08:04; Start 02/04/17 at 16:00; Stop 02/26/17 at 12:48; Status DC Clozapine (Clozaril) 50 mg QAM PO ; Start 03/14/17 at 09:00; Stop 03/21/17 at 08: 59 Docusate Sodium (Colace) 100 mg BID PO Last administered on 03/14/17 08:05; Start 02/03/17 at 21:00; Stop 04/04/17 at 20:59 Gabapentin (Neurontin) 100 mg QAM PO Last administered on 02/24/17 08:14; Start 02/04/17 at 09:00; Stop 02/24/17 at 17:59; Status DC Gabapentin (Neurontin) 200 mg QAM PO Last administered on 03/14/17 08:05; Start 02/25/17 at 09:00; Stop 03/27/17 at 08:59 Gabapentin (Neurontin) 400 mg QHS PO Last administered on 03/09/17 21:16; Start 02/04/17 at 21:00; Stop 04/04/17 at 20:59 Haloperidol Decanoate (Haldol Decanoate) 50 mg Q14D STAT IM ; Start 02/18/17 at 20:24; Stop 02/18/17 at 20:25; Status Cancel Haloperidol Decanoate (Haldol Decanoate) 50 mg Q14D@0900 IM ; Start 03/18/17 at 09:00; Stop 04/17/17 at 08:59 Haloperidol Decanoate (Haldol Decanoate) 50 mg Q14D@14 IM Last administered on 03/04/17 13:27; Start 02/04/17 at 14:00; Stop 03/06/17 at 13:59; Status DC Home Med (Med Rec Complete!) ASDIRECTED XX ; Start 02/03/17 at 12:15; Stop at 12:15; Status DC Lorazepam (Ativan) 1 mg Q8HP PRN PO ANXIETY/AGITATION Last administered on 20:52; Start 02/03/17 at 15:45; Stop 02/26/17 at 12:48; Status DC Lorazepam (Ativan) 1 mg TID PO Last administered on 03/14/17 08:05; Start 08/05 at 16:00; Stop 03/31/17 at 15:44 Magnesium Hydroxide (Milk Of Magnesia) 30 ml DAILYPRN PRN PO CONSTIPATION; Start 02/03/17 at 15:45; Stop 03/05/17 at 15:44; Status DC Magnesium Hydroxide (Milk Of Magnesia) 30 ml DAILYPRN PRN PO CONSTIPATION; Start 03/05/17 at 19:15; Stop 04/04/17 at 19:14 Mirtazapine (Remeron) 15 mg QHS PO Last administered on 02/27/17 21:37; Start 02/04/17 at 21:00; Stop 02/28/17 at 09:19; Status DC Mirtazapine (Remeron) 30 mg QHS PO Last administered on 03/06/17 20:04; Start 02/28/17 at 21:00; Stop 03/30/17 at 20:59 Miscellaneous (Unresolved Clarification Entry) SEE LABEL COMMENTS UNRESOLVED XX ; Start 03/07/17 at 00:01; Stop 03/10/17 at 15:08; Status DC Nicotine (Nicoderm Cq 21mg) 1 patch DAILY TD Last administered on 03/14/17 08: 05; Start 02/04/17 at 09:00; Stop 04/04/17 at 08:59 Olanzapine (ZyPREXA) 10 mg DAILY PO Last administered on 02/04/17 08:59; Start 02/03/17 at 09:00; Stop 02/04/17 at 14:20; Status DC Quetiapine Fumarate (SEROquel) 200 mg QHS PO ; Start 02/04/17 at 21:00; Stop at 13:42; Status DC Trazodone HCl (Desyrel) 50 mg QHSP PRN PO INSOMNIA; Start 02/03/17 at 16:45; Stop 03/05/17 at 16:44; Status Cancel Trazodone HCl (Desyrel) 50 mg QHSP PRN PO INSOMNIA Last administered on 21:49; Start 02/28/17 at 12:45; Stop 03/10/17 at 15:11; Status DC Venlafaxine HCl (Effexor Xr) 75 mg DAILY PO Last administered on 02/06/17 08:28; Start 02/04/17 at 09:00; Stop 02/06/17 at 18:02; Status DC Venlafaxine HCl (Effexor Xr) 150 mg BID PO Last administered on 03/14/17 08:05; Start 03/07/17 at 09:00; Stop 04/06/17 at 08:59 Venlafaxine HCl (Effexor Xr) 150 mg QHS PO Last administered on 02/23/17 21 :05; Start 02/07/17 at 21:00; Stop 02/24/17 at 17:59; Status DC Venlafaxine HCl (Effexor) 150 mg BID PO Last administered on 03/06/17 20:04; Start 02/24/17 at 21:00; Stop 03/06/17 at 23:26; Status DC Allergies Coded Allergies: Loxapine (Verified Allergy, Mild, 01/21/13) Thiothixene (Verified Allergy, Mild, 01/21/13) Fluphenazine (Verified Allergy, Unknown, 09/12/15) UNKNOWN [place] (Verified Allergy, Unknown, UNKNOWN, 09/12/15) Meperidine (Verified Allergy, Unknown, UNKNOWN, 09/12/15) Phenothiazines (Verified Allergy, Unknown, UNKNOWN, 09/12/15) Thioridazine (Verified Allergy, Unknown, UNKNOWN, 09/12/15) KELVIN GARIBAY MD March 14, 2017 14:40
[2017-03-14] MEDS: cloZAPine 25 MG TAB (S0136) PO SCH (16:40)
[2017-03-14 18:00] VITALS: BP 104/49
[2017-03-14] MEDS: GABAPENTIN 400 MG CAP PO SCH (21:00)
[2017-03-14] MEDS: MIRTAZAPINE 15 MG TAB PO SCH (21:00)
[2017-03-15] MEDS: VENLAFAXINE **XR** 75MG CAPSULE PO SCH ×2 (07:41→21:00)
[2017-03-15] MEDS: GABAPENTIN 100 MG CAP PO SCH (07:42)
[2017-03-15] MEDS: NICOTINE 21MG/24HR 1 EA TRANSDERMAL TD SCH (09:00)
[2017-03-15] MEDS: BENZTROPINE 1 MG TAB PO SCH ×3 (09:00→21:00)
[2017-03-15] MEDS: DOCUSATE SODIUM 100 MG CAP PO SCH ×2 (09:00→21:00)
[2017-03-15] MEDS: cloZAPine 25 MG TAB (S0136) PO SCH (09:00)
[2017-03-15] MEDS: LORazepam 1 MG TAB PO SCH ×4 (09:00→21:00)
[2017-03-15] MEDS: MAALOX 30 ML SUSP *UDC PO PRN (17:05)
[2017-03-15] MEDS: MIRTAZAPINE 15 MG TAB PO SCH (21:00)
[2017-03-15] MEDS: GABAPENTIN 400 MG CAP PO SCH (21:00)
[2017-03-16 06:46] VITALS: BP 104/58
[2017-03-16] MEDS: NICOTINE 21MG/24HR 1 EA TRANSDERMAL TD SCH (08:54)
[2017-03-16] MEDS: LORazepam 1 MG TAB PO SCH ×3 (08:55→20:11)
[2017-03-16] MEDS: BENZTROPINE 1 MG TAB PO SCH ×3 (08:57→20:11)
[2017-03-16] MEDS: DOCUSATE SODIUM 100 MG CAP PO SCH ×2 (08:57→20:11)
[2017-03-16] MEDS: cloZAPine 25 MG TAB (S0136) PO SCH (08:57)
[2017-03-16] MEDS: VENLAFAXINE **XR** 75MG CAPSULE PO SCH ×2 (08:58→20:11)
[2017-03-16] MEDS: GABAPENTIN 100 MG CAP PO SCH (08:58)
[2017-03-16] MEDS: GABAPENTIN 400 MG CAP PO SCH (20:10)
[2017-03-16] MEDS: MIRTAZAPINE 15 MG TAB PO SCH (20:11)
[2017-03-17] MEDS: NICOTINE 21MG/24HR 1 EA TRANSDERMAL TD SCH (08:02)
[2017-03-17] MEDS: VENLAFAXINE **XR** 75MG CAPSULE PO SCH ×2 (08:02→21:03)
[2017-03-17] MEDS: cloZAPine 25 MG TAB (S0136) PO SCH ×2 (08:04→12:29)
[2017-03-17] MEDS: BENZTROPINE 1 MG TAB PO SCH ×3 (08:04→21:04)
[2017-03-17] MEDS: DOCUSATE SODIUM 100 MG CAP PO SCH ×2 (08:04→21:04)
[2017-03-17] MEDS: LORazepam 1 MG TAB PO SCH ×3 (08:04→21:04)
[2017-03-17] MEDS: GABAPENTIN 100 MG CAP PO SCH (08:04)
--- NOTE | 2017-03-17 15:32 | MHIPNPDOC ---
[facility] Progress Note Progress Note DATE OF SERVICE: 03/17/17 INTERVAL HISTORY: Medication Side effects: the patient reports no side effects from his Abilify at this time. Has not been taking the clozapine as of yet Behavior/events: has remained fairly bizarre and paranoid, however, was able to have the wharf labourer draws blood. Group Attendance: has not attended groups Psychiatric Symptoms: remains paranoid, delusional and bizarre. However, his insight is improving and he recognizes the need to get better. He will be unable to go to [place] due to a restraining order. Alternative placement is being sought at [facility]. VITAL SIGNS: See below. NEW TEST RESULTS: See below CURRENT MEDICATIONS: See below. MENTAL STATUS EXAMINATION: General: disheveled Speech: impoverished Thought processes: coherent Thought content: paranoid Abstract reasoning, and computation: impaired Description of associations: loose Description of abnormal or psychotic thoughts:Denies any suicidal or homicidal ideation. Denies any auditory or visual hallucinations. Does not appear to be responding to internal stimuli. Judgment: poor Insight: limited Orientation: alert and oriented times 3 Recent and remote memory: intact Attention span and concentration: adequate Fund of knowledge: limited Mood: "fine" Affect: anxious and dysphoric DIAGNOSES: 1. Paranoid schizophrenia, chronic, cutely decompensated. ASSESSMENT: little improvement MANAGEMENT PLAN: Medications: patient consented taking clozapine as his CBC revealed a normal neutrophil count. As he consistently takes this plan to taper Abilify and Haldol depot. Psychotherapy: encourage psychotherapy Social: [facility] referral and process Misc: none Disposition: The patient will need of further inpatient stay to address severe psychosis and paranoia. TIME SPENT: 15 minutes. Vital Signs Vital Signs Date Time Temp Pulse Resp B/P (MAP) Pulse Ox O2 Delivery O2 Flow Rate FiO2 03/16/17 06:46 97.9 81 16 104/58 (73) Room Air Current Medications Current Medications Acetaminophen (Tylenol Tab) 650 mg Q6HP PRN PO HEADACHE or DISCOMFORT Last administered on 02/11/17t 23:30; Start 02/03/17 at 15:45; Stop 04/04/17 at 15:44 Acetaminophen (Tylenol Tab) 650 mg Q6HP PRN PO HEADACHE or DISCOMFORT; Start at 19:15; Stop 04/04/17 at 19:14; Status Cancel Al Hydrox/Mg Hydrox/Simethicone (Mylanta) 30 ml Q4HP PRN PO HEARTBURN/ INDIGESTION; Start 02/03/17 at 15:45; Stop 03/05/17 at 15:44; Status DC Al Hydrox/Mg Hydrox/Simethicone (Mylanta) 30 ml Q4HP PRN PO HEARTBURN/ INDIGESTION Last administered on 03/15/17 17:05; Start 03/05/17 at 19:30; Stop 04/04/17 at 19:29 Al Hydrox/Mg Hydrox/Simethicone (Mylanta) 30 ml Q4HP PRN PO HEARTBURN/ INDIGESTION; Start 03/06/17 at 10:00; Stop 04/04/17 at 09:59; Status Cancel Aripiprazole (AbiLIFY) 2.5 mg QHS PO Last administered on 02/16/17 20:07; Start 02/07/17 at 21:00; Stop 02/17/17 at 12:25; Status DC Aripiprazole (AbiLIFY) 5 mg QHS PO Last administered on 02/23/17 21:06; Start 02/17/17 at 21:00; Stop 02/24/17 at 17:48; Status DC Aripiprazole (AbiLIFY) 7.5 mg BID PO Last administered on 02/25/17 08:02; Start 02/24/17 at 21:00; Stop 02/25/17 at 11:54; Status DC Aripiprazole (AbiLIFY) 10 mg BID PO Last administered on 03/03/17 08:14; Start 02/25/17 at 21:00; Stop 03/03/17 at 10:13; Status DC Aripiprazole (AbiLIFY) 15 mg BID PO Last administered on 03/08/17 08:08; Start 03/03/17 at 21:00; Stop 03/08/17 at 08:14; Status DC Aripiprazole (AbiLIFY) 15 mg BID PO ; Start 03/08/17 at 09:00; Stop 04/02/17 at 20:59; Status Cancel Aripiprazole (AbiLIFY) 15 mg BID PO Last administered on 03/10/17 08:03; Start 03/08/17 at 21:00; Stop 03/10/17 at 15:14; Status DC Aripiprazole (AbiLIFY) 15 mg BID PO Last administered on 03/17/17 08:02; Start 03/14/17 at 21:00; Stop 04/13/17 at 20:59 Aripiprazole (AbiLIFY) 20 mg BID PO Last administered on 03/14/17 08:05; Start 03/10/17 at 21:00; Stop 03/14/17 at 14:42; Status DC Benztropine Mesylate (Cogentin) 0.5 mg BID PO Last administered on 02/23/17 08: 43; Start 02/04/17 at 09:00; Stop 02/23/17 at 13:41; Status DC Benztropine Mesylate (Cogentin) 1 mg BID PO Last administered on 03/14/17 08: 05; Start 02/23/17 at 09:00; Stop 03/14/17 at 16:09; Status DC Benztropine Mesylate (Cogentin) 1 mg TID PO ; Start 03/14/17 at 21:00; Stop 03/25 at 08:59 Buspirone HCl (Buspar) 7.5 mg TID PO Last administered on 02/26/17 08:04; Start 02/04/17 at 16:00; Stop 02/26/17 at 12:48; Status DC Clozapine (Clozaril) 50 mg QAM PO Last administered on 03/17/17 12:29; Start 03/14/17 at 09:00; Stop 03/21/17 at 08:59 Docusate Sodium (Colace) 100 mg BID PO Last administered on 03/14/17 08:05; Start 02/03/17 at 21:00; Stop 04/04/17 at 20:59 Gabapentin (Neurontin) 100 mg QAM PO Last administered on 02/24/17 08:14; Start 02/04/17 at 09:00; Stop 02/24/17 at 17:59; Status DC Gabapentin (Neurontin) 200 mg QAM PO Last administered on 03/15/17 07:42; Start 02/25/17 at 09:00; Stop 03/27/17 at 08:59 Gabapentin (Neurontin) 400 mg QHS PO Last administered on 03/16/17 20:10; Start 02/04/17 at 21:00; Stop 04/04/17 at 20:59 Haloperidol Decanoate (Haldol Decanoate) 50 mg Q14D STAT IM ; Start 02/18/17 at 20:24; Stop 02/18/17 at 20:25; Status Cancel Haloperidol Decanoate (Haldol Decanoate) 50 mg Q14D@0900 IM ; Start 03/18/17 at 09:00; Stop 04/17/17 at 08:59 Haloperidol Decanoate (Haldol Decanoate) 50 mg Q14D@14 IM Last administered on 03/04/17 13:27; Start 02/04/17 at 14:00; Stop 03/06/17 at 13:59; Status DC Home Med (Med Rec Complete!) ASDIRECTED XX ; Start 02/03/17 at 12:15; Stop at 12:15; Status DC Lorazepam (Ativan) 1 mg Q8HP PRN PO ANXIETY/AGITATION Last administered on 20:52; Start 02/03/17 at 15:45; Stop 02/26/17 at 12:48; Status DC Lorazepam (Ativan) 1 mg TID PO Last administered on 03/16/17 08:55; Start 08/05 at 16:00; Stop 03/31/17 at 15:44 Magnesium Hydroxide (Milk Of Magnesia) 30 ml DAILYPRN PRN PO CONSTIPATION; Start 02/03/17 at 15:45; Stop 03/05/17 at 15:44; Status DC Magnesium Hydroxide (Milk Of Magnesia) 30 ml DAILYPRN PRN PO CONSTIPATION; Start 03/05/17 at 19:15; Stop 04/04/17 at 19:14 Mirtazapine (Remeron) 15 mg QHS PO Last administered on 02/27/17 21:37; Start 02/04/17 at 21:00; Stop 02/28/17 at 09:19; Status DC Mirtazapine (Remeron) 30 mg QHS PO Last administered on 03/06/17 20:04; Start 02/28/17 at 21:00; Stop 03/30/17 at 20:59 Miscellaneous (Unresolved Clarification Entry) SEE LABEL COMMENTS UNRESOLVED XX ; Start 03/07/17 at 00:01; Stop 03/10/17 at 15:08; Status DC Nicotine (Nicoderm Cq 21mg) 1 patch DAILY TD Last administered on 03/17/17 08: 02; Start 02/04/17 at 09:00; Stop 04/04/17 at 08:59 Olanzapine (ZyPREXA) 10 mg DAILY PO Last administered on 02/04/17 08:59; Start 02/03/17 at 09:00; Stop 02/04/17 at 14:20; Status DC Quetiapine Fumarate (SEROquel) 200 mg QHS PO ; Start 02/04/17 at 21:00; Stop at 13:42; Status DC Trazodone HCl (Desyrel) 50 mg QHSP PRN PO INSOMNIA; Start 02/03/17 at 16:45; Stop 03/05/17 at 16:44; Status Cancel Trazodone HCl (Desyrel) 50 mg QHSP PRN PO INSOMNIA Last administered on 21:49; Start 02/28/17 at 12:45; Stop 03/10/17 at 15:11; Status DC Venlafaxine HCl (Effexor Xr) 75 mg DAILY PO Last administered on 02/06/17 08:28; Start 02/04/17 at 09:00; Stop 02/06/17 at 18:02; Status DC Venlafaxine HCl (Effexor Xr) 150 mg BID PO Last administered on 03/17/17 08:02; Start 03/07/17 at 09:00; Stop 04/06/17 at 08:59 Venlafaxine HCl (Effexor Xr) 150 mg QHS PO Last administered on 02/23/17 21 :05; Start 02/07/17 at 21:00; Stop 02/24/17 at 17:59; Status DC Venlafaxine HCl (Effexor) 150 mg BID PO Last administered on 03/06/17 20:04; Start 02/24/17 at 21:00; Stop 03/06/17 at 23:26; Status DC Allergies Coded Allergies: Loxapine (Verified Allergy, Mild, 01/21/13) Thiothixene (Verified Allergy, Mild, 01/21/13) Fluphenazine (Verified Allergy, Unknown, 09/12/15) UNKNOWN [place] (Verified Allergy, Unknown, UNKNOWN, 09/12/15) Meperidine (Verified Allergy, Unknown, UNKNOWN, 09/12/15) Phenothiazines (Verified Allergy, Unknown, UNKNOWN, 09/12/15) Thioridazine (Verified Allergy, Unknown, UNKNOWN, 09/12/15) GME ATTESTATION My preceptor for this patient encounter was physically present in the building during the encounter and was fully available. As needed, all aspects of the patient interview, examination, medical decision making process, and medical care plan development were reviewed and approved by the preceptor. Preceptor is aware and concurs with the plan as stated in the body of this note and will attest to such by his/her cosignature. HEATHER PRAJAPATI DO March 17, 2017 15:32
[2017-03-17] MEDS: MIRTAZAPINE 15 MG TAB PO SCH (21:03)
[2017-03-17] MEDS: GABAPENTIN 400 MG CAP PO SCH (21:04)
[2017-03-18] MEDS: cloZAPine 25 MG TAB (S0136) PO SCH (08:37)
[2017-03-18] MEDS: GABAPENTIN 100 MG CAP PO SCH (08:37)
[2017-03-18] MEDS: LORazepam 1 MG TAB PO SCH ×3 (08:37→20:56)
[2017-03-18] MEDS: DOCUSATE SODIUM 100 MG CAP PO SCH ×2 (08:37→20:56)
[2017-03-18] MEDS: BENZTROPINE 1 MG TAB PO SCH ×3 (08:38→20:56)
[2017-03-18] MEDS: VENLAFAXINE **XR** 75MG CAPSULE PO SCH ×2 (08:39→20:56)
[2017-03-18] MEDS: NICOTINE 21MG/24HR 1 EA TRANSDERMAL TD SCH (08:40)
[2017-03-18] MEDS: HALOPERIDOL DECANOATE 100 MG/ML VIAL (J1631) IM SCH (09:38)
[2017-03-18 18:21] VITALS: BP 120/70
[2017-03-18] MEDS: GABAPENTIN 400 MG CAP PO SCH (20:56)
[2017-03-18] MEDS: ARIPiprazole 10 MG TAB PO SCH (20:56)
[2017-03-18] MEDS: MIRTAZAPINE 15 MG TAB PO SCH (20:56)
--- NOTE | 2017-03-18 21:19 | MHIPNPDOC ---
[facility] Progress Note Progress Note DATE OF SERVICE: 03/18/17 INTERVAL HISTORY: Medication Side effects: reports heavy sedation and salvation from the clozapine dose this morning Behavior/events: has been reclusive to his room as he is very tired and sedated from the clozapine Group Attendance: has had difficulty attending groups due to the clozapine the day Psychiatric Symptoms: difficult to ascertain patient very tired and fatigued from the clozapine, but describes the symptoms have not improved and that he still feels though people are to get him. VITAL SIGNS: See below. NEW TEST RESULTS: See below CURRENT MEDICATIONS: See below. MENTAL STATUS EXAMINATION: General: disheveled, laying in bed Speech: coherent Thought processes: linear Thought content: paranoid ideation still rife Abstract reasoning, and computation: impaired Description of associations: loose Description of abnormal or psychotic thoughts:Denies any suicidal or homicidal ideation. Judgment: limited Insight: limited Orientation: alert and oriented 3 Recent and remote memory: intact Attention span and concentration: intact Fund of knowledge: adequate Mood: "tired" Affect: fatigued DIAGNOSES: 1. Chronic paranoid schizophrenia. ASSESSMENT: experience in side effects of clozapine due to AM dosage MANAGEMENT PLAN: Medications: decrease clozapine to 25 mg and switch to QHS dosing starting on March 19, 2017, continue other medications including Abilify and venlafaxine as below. Psychotherapy: encourage group therapy Social: [facility] psychiatric referral in process Misc: none Disposition: The patient will need of further inpatient stay to address severe treatment resistant psychosis. TIME SPENT: 15 minutes. Vital Signs Vital Signs Date Time Temp Pulse Resp B/P (MAP) Pulse Ox O2 Delivery O2 Flow Rate FiO2 03/18/17 18:21 98.6 110 16 120/70 (87) 03/16/17 06:46 Room Air Current Medications Current Medications Acetaminophen (Tylenol Tab) 650 mg Q6HP PRN PO HEADACHE or DISCOMFORT Last administered on 02/11/17t 23:30; Start 02/03/17 at 15:45; Stop 04/04/17 at 15:44 Acetaminophen (Tylenol Tab) 650 mg Q6HP PRN PO HEADACHE or DISCOMFORT; Start at 19:15; Stop 04/04/17 at 19:14; Status Cancel Al Hydrox/Mg Hydrox/Simethicone (Mylanta) 30 ml Q4HP PRN PO HEARTBURN/ INDIGESTION; Start 02/03/17 at 15:45; Stop 03/05/17 at 15:44; Status DC Al Hydrox/Mg Hydrox/Simethicone (Mylanta) 30 ml Q4HP PRN PO HEARTBURN/ INDIGESTION Last administered on 03/15/17 17:05; Start 03/05/17 at 19:30; Stop 04/04/17 at 19:29 Al Hydrox/Mg Hydrox/Simethicone (Mylanta) 30 ml Q4HP PRN PO HEARTBURN/ INDIGESTION; Start 03/06/17 at 10:00; Stop 04/04/17 at 09:59; Status Cancel Aripiprazole (AbiLIFY) 2.5 mg QHS PO Last administered on 02/16/17 20:07; Start 02/07/17 at 21:00; Stop 02/17/17 at 12:25; Status DC Aripiprazole (AbiLIFY) 5 mg QHS PO Last administered on 02/23/17 21:06; Start 02/17/17 at 21:00; Stop 02/24/17 at 17:48; Status DC Aripiprazole (AbiLIFY) 7.5 mg BID PO Last administered on 02/25/17 08:02; Start 02/24/17 at 21:00; Stop 02/25/17 at 11:54; Status DC Aripiprazole (AbiLIFY) 10 mg BID PO Last administered on 03/18/17 20:56; Start 03/18/17 at 21:00; Stop 04/17/17 at 20:59 Aripiprazole (AbiLIFY) 10 mg BID PO Last administered on 03/03/17 08:14; Start 02/25/17 at 21:00; Stop 03/03/17 at 10:13; Status DC Aripiprazole (AbiLIFY) 15 mg BID PO Last administered on 03/08/17 08:08; Start 03/03/17 at 21:00; Stop 03/08/17 at 08:14; Status DC Aripiprazole (AbiLIFY) 15 mg BID PO ; Start 03/08/17 at 09:00; Stop 04/02/17 at 20:59; Status Cancel Aripiprazole (AbiLIFY) 15 mg BID PO Last administered on 03/10/17 08:03; Start 03/08/17 at 21:00; Stop 03/10/17 at 15:14; Status DC Aripiprazole (AbiLIFY) 15 mg BID PO Last administered on 03/18/17 08:37; Start 03/14/17 at 21:00; Stop 03/18/17 at 12:15; Status DC Aripiprazole (AbiLIFY) 20 mg BID PO Last administered on 03/14/17 08:05; Start 03/10/17 at 21:00; Stop 03/14/17 at 14:42; Status DC Benztropine Mesylate (Cogentin) 0.5 mg BID PO Last administered on 02/23/17 08: 43; Start 02/04/17 at 09:00; Stop 02/23/17 at 13:41; Status DC Benztropine Mesylate (Cogentin) 1 mg BID PO Last administered on 03/14/17 08: 05; Start 02/23/17 at 09:00; Stop 03/14/17 at 16:09; Status DC Benztropine Mesylate (Cogentin) 1 mg TID PO Last administered on 03/18/17 20: 56; Start 03/14/17 at 21:00; Stop 03/25/17 at 08:59 Buspirone HCl (Buspar) 7.5 mg TID PO Last administered on 02/26/17 08:04; Start 02/04/17 at 16:00; Stop 02/26/17 at 12:48; Status DC Clozapine (Clozaril) 50 mg QAM PO Last administered on 03/18/17 08:37; Start 03/14/17 at 09:00; Stop 03/21/17 at 08:59 Docusate Sodium (Colace) 100 mg BID PO Last administered on 03/18/17 20:56; Start 02/03/17 at 21:00; Stop 04/04/17 at 20:59 Gabapentin (Neurontin) 100 mg QAM PO Last administered on 02/24/17 08:14; Start 02/04/17 at 09:00; Stop 02/24/17 at 17:59; Status DC Gabapentin (Neurontin) 200 mg QAM PO Last administered on 03/18/17 08:37; Start 02/25/17 at 09:00; Stop 03/27/17 at 08:59 Gabapentin (Neurontin) 400 mg QHS PO Last administered on 03/18/17 20:56; Start 02/04/17 at 21:00; Stop 04/04/17 at 20:59 Haloperidol Decanoate (Haldol Decanoate) 50 mg Q14D STAT IM ; Start 02/18/17 at 20:24; Stop 02/18/17 at 20:25; Status Cancel Haloperidol Decanoate (Haldol Decanoate) 50 mg Q14D@0900 IM Last administered on 03/18/17 09:38; Start 03/18/17 at 09:00; Stop 04/17/17 at 08:59 Haloperidol Decanoate (Haldol Decanoate) 50 mg Q14D@14 IM Last administered on 03/04/17 13:27; Start 02/04/17 at 14:00; Stop 03/06/17 at 13:59; Status DC Home Med (Med Rec Complete!) ASDIRECTED XX ; Start 02/03/17 at 12:15; Stop at 12:15; Status DC Lorazepam (Ativan) 1 mg Q8HP PRN PO ANXIETY/AGITATION Last administered on 20:52; Start 02/03/17 at 15:45; Stop 02/26/17 at 12:48; Status DC Lorazepam (Ativan) 1 mg TID PO Last administered on 03/18/17 20:56; Start 08/05 at 16:00; Stop 03/31/17 at 15:44 Magnesium Hydroxide (Milk Of Magnesia) 30 ml DAILYPRN PRN PO CONSTIPATION; Start 02/03/17 at 15:45; Stop 03/05/17 at 15:44; Status DC Magnesium Hydroxide (Milk Of Magnesia) 30 ml DAILYPRN PRN PO CONSTIPATION; Start 03/05/17 at 19:15; Stop 04/04/17 at 19:14 Mirtazapine (Remeron) 15 mg QHS PO Last administered on 02/27/17 21:37; Start 02/04/17 at 21:00; Stop 02/28/17 at 09:19; Status DC Mirtazapine (Remeron) 30 mg QHS PO Last administered on 03/18/17 20:56; Start 02/28/17 at 21:00; Stop 03/30/17 at 20:59 Miscellaneous (Unresolved Clarification Entry) SEE LABEL COMMENTS UNRESOLVED XX ; Start 03/07/17 at 00:01; Stop 03/10/17 at 15:08; Status DC Nicotine (Nicoderm Cq 21mg) 1 patch DAILY TD Last administered on 03/18/17 08: 40; Start 02/04/17 at 09:00; Stop 04/04/17 at 08:59 Olanzapine (ZyPREXA) 10 mg DAILY PO Last administered on 02/04/17 08:59; Start 02/03/17 at 09:00; Stop 02/04/17 at 14:20; Status DC Quetiapine Fumarate (SEROquel) 200 mg QHS PO ; Start 02/04/17 at 21:00; Stop at 13:42; Status DC Trazodone HCl (Desyrel) 50 mg QHSP PRN PO INSOMNIA; Start 02/03/17 at 16:45; Stop 03/05/17 at 16:44; Status Cancel Trazodone HCl (Desyrel) 50 mg QHSP PRN PO INSOMNIA Last administered on 21:49; Start 02/28/17 at 12:45; Stop 03/10/17 at 15:11; Status DC Venlafaxine HCl (Effexor Xr) 75 mg DAILY PO Last administered on 02/06/17 08:28; Start 02/04/17 at 09:00; Stop 02/06/17 at 18:02; Status DC Venlafaxine HCl (Effexor Xr) 150 mg BID PO Last administered on 03/18/17 20:56; Start 03/07/17 at 09:00; Stop 04/06/17 at 08:59 Venlafaxine HCl (Effexor Xr) 150 mg QHS PO Last administered on 02/23/17 21 :05; Start 02/07/17 at 21:00; Stop 02/24/17 at 17:59; Status DC Venlafaxine HCl (Effexor) 150 mg BID PO Last administered on 5/18/17at 20:04; Start 02/24/17 at 21:00; Stop 03/06/17 at 23:26; Status DC Allergies Coded Allergies: Loxapine (Verified Allergy, Mild, 01/21/13) Thiothixene (Verified Allergy, Mild, 01/21/13) Fluphenazine (Verified Allergy, Unknown, 09/12/15) UNKNOWN [place] (Verified Allergy, Unknown, UNKNOWN, 09/12/15) Meperidine (Verified Allergy, Unknown, UNKNOWN, 09/12/15) Phenothiazines (Verified Allergy, Unknown, UNKNOWN, 09/12/15) Thioridazine (Verified Allergy, Unknown, UNKNOWN, 09/12/15) GME ATTESTATION My preceptor for this patient encounter was physically present in the building during the encounter and was fully available. As needed, all aspects of the patient interview, examination, medical decision making process, and medical care plan development were reviewed and approved by the preceptor. Preceptor is aware and concurs with the plan as stated in the body of this note and will attest to such by his/her cosignature. HEATHER PRAJAPATI DO March 18, 2017 21:19
[2017-03-19] MEDS: LORazepam 1 MG TAB PO SCH (08:04)
[2017-03-19] MEDS: VENLAFAXINE **XR** 75MG CAPSULE PO SCH ×2 (08:04→20:24)
[2017-03-19] MEDS: BENZTROPINE 1 MG TAB PO SCH ×3 (08:04→20:23)
[2017-03-19] MEDS: NICOTINE 21MG/24HR 1 EA TRANSDERMAL TD SCH (08:04)
[2017-03-19] MEDS: GABAPENTIN 100 MG CAP PO SCH (08:04)
[2017-03-19] MEDS: ARIPiprazole 10 MG TAB PO SCH ×2 (08:04→20:23)
[2017-03-19] MEDS: DOCUSATE SODIUM 100 MG CAP PO SCH ×2 (08:04→20:23)
[2017-03-19] MEDS ORDERED: MIRTAZAPINE 15 MG TAB PO PRN (11:15)
[2017-03-19] MEDS ORDERED: LORazepam 1 MG TAB PO PRN (11:15)
[2017-03-19 18:52] VITALS: BP 114/66
--- NOTE | 2017-03-19 19:02 | MHIPNPDOC ---
[facility] Progress Note Progress Note DATE OF SERVICE: 03/19/17 INTERVAL HISTORY: Medication Side effects: Denies medication side effects except for daytime sleepiness that was caused by Clozaril. Discussed with him treatment plan and agreed that if Clozaril helps to control his symptoms Haldol Decanoate will be tapered down, Clozaril will be increased. Gabapentin was discontinued because he said he had been taking it for a long time and he didn't feel that it was helping him. Ativan and Remeron were changed to when necessary. Behavior: He has been slightly less irritable. He continues to be isolated, but comes out of his room more frequently. He seems less anxious Group Attendance: And tense all groups Psychiatric Symptom change: As above VITAL SIGNS: See below. NEW TEST RESULTS: See below CURRENT MEDICATIONS: See below. MENTAL STATUS EXAMINATION: General: Alert, oriented 2 open (place and person), with good hygiene, improved eye contact, dressed in personal clothes Speech: Less tangential Thought processes: Still disorganized Thought content: Positive for R annoyed delusions although he denies auditory and visual hallucinations and he denies suicidal and homicidal ideation Abstract reasoning, and computation: Poor Description of associations: Not loose Description of abnormal or psychotic thoughts: Paranoid, persecutory delusions and possibly auditory hallucinations because he has been perceived internally preoccupied but less than he used to. Judgment: Poor Insight: Poor Orientation: Oriented 2, to place and person Recent and remote memory: Poor Attention span and concentration: Poor Fund of knowledge: Not able to assess Mood: Less irritable Affect: And slightly anxious, less depressed and less irritable DIAGNOSES: 1. Paranoid schizophrenia. 2. Major depression. 3. . ASSESSMENT: Patient is still very paranoid, will assess his level of functioning with recently started Clozaril. We will order a CBC with differential and CMP for tomorrow morning MANAGEMENT PLAN: As above Medications: Clozaril 25 mg by mouth daily for schizophrenia, Haldol Decanoate 50 mg IM every 14 days for psychosis, Remeron 30 mg by mouth daily at bedtime when necessary for insomnia, Ativan 1 mg by mouth 3 times a day when necessary for anxiety and venlafaxine 300 mg by mouth daily for depression and anxiety Psychotherapy: Will continue to encourage to attend groups Social: -- Misc: -- Disposition: He needs to continue hospitalization and will need transfer to long -term treatment facility for a higher level of care TIME SPENT: 20 minutes. Vital Signs Vital Signs Date Time Temp Pulse Resp B/P (MAP) Pulse Ox O2 Delivery O2 Flow Rate FiO2 03/18/17 18:21 98.6 110 16 120/70 (87) 03/16/17 06:46 Room Air Current Medications Current Medications Acetaminophen (Tylenol Tab) 650 mg Q6HP PRN PO HEADACHE or DISCOMFORT Last administered on 02/11/17 23:30; Start 02/03/17 at 15:45; Stop 04/04/17 at 15:44 Acetaminophen (Tylenol Tab) 650 mg Q6HP PRN PO HEADACHE or DISCOMFORT; Start at 19:15; Stop 04/04/17 at 19:14; Status Cancel Al Hydrox/Mg Hydrox/Simethicone (Mylanta) 30 ml Q4HP PRN PO HEARTBURN/ INDIGESTION; Start 02/03/17 at 15:45; Stop 03/05/17 at 15:44; Status DC Al Hydrox/Mg Hydrox/Simethicone (Mylanta) 30 ml Q4HP PRN PO HEARTBURN/ INDIGESTION Last administered on 03/15/17 17:05; Start 03/05/17 at 19:30; Stop 04/04/17 at 19:29 Al Hydrox/Mg Hydrox/Simethicone (Mylanta) 30 ml Q4HP PRN PO HEARTBURN/ INDIGESTION; Start 03/06/17 at 10:00; Stop 04/04/17 at 09:59; Status Cancel Aripiprazole (AbiLIFY) 2.5 mg QHS PO Last administered on 02/16/17 20:07; Start 02/07/17 at 21:00; Stop 02/17/17 at 12:25; Status DC Aripiprazole (AbiLIFY) 5 mg QHS PO Last administered on 02/23/17 21:06; Start 02/17/17 at 21:00; Stop 02/24/17 at 17:48; Status DC Aripiprazole (AbiLIFY) 7.5 mg BID PO Last administered on 02/25/17 08:02; Start 02/24/17 at 21:00; Stop 02/25/17 at 11:54; Status DC Aripiprazole (AbiLIFY) 10 mg BID PO Last administered on 03/19/17 08:04; Start 03/18/17 at 21:00; Stop 04/17/17 at 20:59 Aripiprazole (AbiLIFY) 10 mg BID PO Last administered on 03/03/17 08:14; Start 02/25/17 at 21:00; Stop 03/03/17 at 10:13; Status DC Aripiprazole (AbiLIFY) 15 mg BID PO Last administered on 03/08/17 08:08; Start 03/03/17 at 21:00; Stop 03/08/17 at 08:14; Status DC Aripiprazole (AbiLIFY) 15 mg BID PO ; Start 03/08/17 at 09:00; Stop 04/02/17 at 20:59; Status Cancel Aripiprazole (AbiLIFY) 15 mg BID PO Last administered on 03/10/17 08:03; Start 03/08/17 at 21:00; Stop 03/10/17 at 15:14; Status DC Aripiprazole (AbiLIFY) 15 mg BID PO Last administered on 03/18/17 08:37; Start 03/14/17 at 21:00; Stop 03/18/17 at 12:15; Status DC Aripiprazole (AbiLIFY) 20 mg BID PO Last administered on 03/14/17 08:05; Start 03/10/17 at 21:00; Stop 03/14/17 at 14:42; Status DC Benztropine Mesylate (Cogentin) 0.5 mg BID PO Last administered on 02/23/17 08: 43; Start 02/04/17 at 09:00; Stop 02/23/17 at 13:41; Status DC Benztropine Mesylate (Cogentin) 1 mg BID PO Last administered on 03/14/17 08: 05; Start 02/23/17 at 09:00; Stop 03/14/17 at 16:09; Status DC Benztropine Mesylate (Cogentin) 1 mg TID PO Last administered on 03/19/17 16: 10; Start 03/14/17 at 21:00; Stop 03/25/17 at 08:59 Buspirone HCl (Buspar) 7.5 mg TID PO Last administered on 02/26/17 08:04; Start 02/04/17 at 16:00; Stop 02/26/17 at 12:48; Status DC Clozapine (Clozaril) 25 mg QHS PO ; Start 03/19/17 at 21:00; Stop 03/21/17 at 08: 59 Clozapine (Clozaril) 50 mg QAM PO Last administered on 03/18/17 08:37; Start 03/14/17 at 09:00; Stop 03/18/17 at 21:20; Status DC Docusate Sodium (Colace) 100 mg BID PO Last administered on 03/19/17 08:04; Start 02/03/17 at 21:00; Stop 04/04/17 at 20:59 Gabapentin (Neurontin) 100 mg QAM PO Last administered on 02/24/17 08:14; Start 02/04/17 at 09:00; Stop 02/24/17 at 17:59; Status DC Gabapentin (Neurontin) 200 mg QAM PO Last administered on 03/19/17 08:04; Start 02/25/17 at 09:00; Stop 03/19/17 at 11:00; Status DC Gabapentin (Neurontin) 400 mg QHS PO Last administered on 03/18/17 20:56; Start 02/04/17 at 21:00; Stop 03/19/17 at 11:00; Status DC Haloperidol Decanoate (Haldol Decanoate) 50 mg Q14D STAT IM ; Start 02/18/17 at 20:24; Stop 02/18/17 at 20:25; Status Cancel Haloperidol Decanoate (Haldol Decanoate) 50 mg Q14D@0900 IM Last administered on 03/18/17 09:38; Start 03/18/17 at 09:00; Stop 04/17/17 at 08:59 Haloperidol Decanoate (Haldol Decanoate) 50 mg Q14D@14 IM Last administered on 03/04/17 13:27; Start 02/04/17 at 14:00; Stop 03/06/17 at 13:59; Status DC Home Med (Med Rec Complete!) ASDIRECTED XX ; Start 02/03/17 at 12:15; Stop at 12:15; Status DC Lorazepam (Ativan) 1 mg Q8HP PRN PO ANXIETY/AGITATION Last administered on 20:52; Start 02/03/17 at 15:45; Stop 02/26/17 at 12:48; Status DC Lorazepam (Ativan) 1 mg TID PO Last administered on 03/19/17 08:04; Start 08/05 at 16:00; Stop 03/19/17 at 11:02; Status DC Lorazepam (Ativan) 1 mg TID PRN PO Anxiety Last administered on 03/19/17 16:11 ; Start 03/19/17 at 11:15; Stop 03/26/17 at 11:14 Magnesium Hydroxide (Milk Of Magnesia) 30 ml DAILYPRN PRN PO CONSTIPATION; Start 02/03/17 at 15:45; Stop 03/05/17 at 15:44; Status DC Magnesium Hydroxide (Milk Of Magnesia) 30 ml DAILYPRN PRN PO CONSTIPATION; Start 03/05/17 at 19:15; Stop 04/04/17 at 19:14 Mirtazapine (Remeron) 15 mg QHS PO Last administered on 02/27/17 21:37; Start 02/04/17 at 21:00; Stop 02/28/17 at 09:19; Status DC Mirtazapine (Remeron) 30 mg QHS PO Last administered on 03/18/17 20:56; Start 02/28/17 at 21:00; Stop 03/19/17 at 11:02; Status DC Mirtazapine (Remeron) 30 mg QHS PRN PO Insomnia; Start 03/19/17 at 11:15; Stop 04/18/17 at 11:14 Miscellaneous (Unresolved Clarification Entry) SEE LABEL COMMENTS UNRESOLVED XX ; Start 03/07/17 at 00:01; Stop 03/10/17 at 15:08; Status DC Nicotine (Nicoderm Cq 21mg) 1 patch DAILY TD Last administered on 03/19/17 08: 04; Start 02/04/17 at 09:00; Stop 04/04/17 at 08:59 Olanzapine (ZyPREXA) 10 mg DAILY PO Last administered on 02/04/17 08:59; Start 02/03/17 at 09:00; Stop 02/04/17 at 14:20; Status DC Quetiapine Fumarate (SEROquel) 200 mg QHS PO ; Start 02/04/17 at 21:00; Stop at 13:42; Status DC Trazodone HCl (Desyrel) 50 mg QHSP PRN PO INSOMNIA; Start 02/03/17 at 16:45; Stop 03/05/17 at 16:44; Status Cancel Trazodone HCl (Desyrel) 50 mg QHSP PRN PO INSOMNIA Last administered on 21:49; Start 02/28/17 at 12:45; Stop 03/10/17 at 15:11; Status DC Venlafaxine HCl (Effexor Xr) 75 mg DAILY PO Last administered on 02/06/17 08:28; Start 02/04/17 at 09:00; Stop 02/06/17 at 18:02; Status DC Venlafaxine HCl (Effexor Xr) 150 mg BID PO Last administered on 03/19/17 08:04; Start 03/07/17 at 09:00; Stop 04/06/17 at 08:59 Venlafaxine HCl (Effexor Xr) 150 mg QHS PO Last administered on 02/23/17 21 :05; Start 02/07/17 at 21:00; Stop 02/24/17 at 17:59; Status DC Venlafaxine HCl (Effexor) 150 mg BID PO Last administered on 03/06/17 20:04; Start 02/24/17 at 21:00; Stop 03/06/17 at 23:26; Status DC Allergies Coded Allergies: Loxapine (Verified Allergy, Mild, 01/21/13) Thiothixene (Verified Allergy, Mild, 01/21/13) Fluphenazine (Verified Allergy, Unknown, 09/12/15) UNKNOWN [place] (Verified Allergy, Unknown, UNKNOWN, 09/12/15) Meperidine (Verified Allergy, Unknown, UNKNOWN, 09/12/15) Phenothiazines (Verified Allergy, Unknown, UNKNOWN, 09/12/15) Thioridazine (Verified Allergy, Unknown, UNKNOWN, 09/12/15) KELVIN GARIBAY MD March 19, 2017 19:02
[2017-03-19] MEDS: cloZAPine 25 MG TAB (S0136) PO SCH (20:23)
[2017-03-20] MEDS: DOCUSATE SODIUM 100 MG CAP PO SCH ×2 (08:13→21:41)
[2017-03-20] MEDS: BENZTROPINE 1 MG TAB PO SCH ×3 (08:13→21:41)
[2017-03-20] MEDS: VENLAFAXINE **XR** 75MG CAPSULE PO SCH ×2 (08:13→21:41)
[2017-03-20] MEDS: ARIPiprazole 10 MG TAB PO SCH ×2 (08:38→21:41)
[2017-03-20] MEDS: NICOTINE 21MG/24HR 1 EA TRANSDERMAL TD SCH (09:00)
[2017-03-20 10:17] LABS: BASO # 0.1 K/mm3 (0.0-0.2); BASO % 0.9 % (0.0-1.0); EOS # 0.5 K/mm3 (0.0-0.50); LARGE UNSTAINED CELL # 0.2 K/mm3 (0.0-0.4); LARGE UNSTAINED CELL % 1.7 % (0.0-4.0); LYMPH # 1.8 K/mm3 (1.5-4.5); MEAN CORPUSCULAR HEMOGLOBIN 32.3 pg (27.0-33.0); MEAN CORPUSCULAR HGB CONC 35.3 g/dl (32.0-36.5); MEAN CORPUSCULAR VOLUME 91.4 fl (80.0-96.0); MONO # 0.7 K/mm3 (0.0-0.8); MONO % 7.5 % (0.0-5.0); NEUTROPHILS # 5.7 K/mm3 (1.8-7.7); NEUTROPHILS % 64.9 % (36.0-66.0); PLATELET COUNT, AUTOMATED 208 k/mm3 (150-450); RED CELL DISTRIBUTION WIDTH 13.1 % (11.5-14.5); WHITE BLOOD COUNT 8.7 K/mm3 (4.0-10.0)
[2017-03-20 10:36] LABS: ALBUMIN 3.2 GM/DL (3.2-5.2); ALBUMIN/GLOBULIN RATIO 1.03 (1.00-1.93); ALKALINE PHOSPHATASE 54 U/L (45-117); ALT/SGPT 39 U/L (12-78); ANION GAP 6 MEQ/L (8-16); AST/SGOT 18 U/L (15-37); BILIRUBIN,TOTAL 0.4 MG/DL (0.2-1.0); BLOOD UREA NITROGEN 12 MG/DL (7-18); CALCIUM LEVEL 8.6 MG/DL (8.5-10.1); CARBON DIOXIDE LEVEL 31 MEQ/L (21-32); CHLORIDE LEVEL 104 MEQ/L (98-107); CREATININE FOR GFR 0.86 MG/DL (0.70-1.30); GLOMERULAR FILTRATION RATE > 60.0 (>56); GLUCOSE, FASTING 114 MG/DL (70-105); POTASSIUM SERUM 3.9 MEQ/L (3.5-5.1); SODIUM LEVEL 141 MEQ/L (136-145); TOTAL PROTEIN 6.3 GM/DL (6.4-8.2)
--- NOTE | 2017-03-20 13:52 | MHIPNPDOC ---
[facility] Progress Note Progress Note DATE OF SERVICE: 03/20/17 INTERVAL HISTORY: Medication Side effects: Denies Behavior: Not aggressive, not violent, continues to be isolated Group Attendance: And has been attending groups Psychiatric Symptom change: Less hypoactive VITAL SIGNS: See below. NEW TEST RESULTS: See below CURRENT MEDICATIONS: See below. MENTAL STATUS EXAMINATION: General: Alert, cooperative but guarded and suspicious. Fair eye contact, dressed in personal clothes, good hygiene. Speech: Soft spoken, tangential. Thought processes: Continues to be disorganized Thought content: Perseverating about "what my plan, where am I going?" Abstract reasoning, and computation: Poor Description of associations: Loose at times Description of abnormal or psychotic thoughts: Delusional thoughts, paranoid, persecutory type Judgment: Poor Insight: Poor Orientation: Oriented to place and person only Recent and remote memory: Poor Attention span and concentration: Poor Fund of knowledge: Unable to assess Mood: Anxious Affect: anxious, less irritable DIAGNOSES: 1. Paranoid schizophrenia. 2. Major depressive disorder. 3. . ASSESSMENT: Patient continues to be psychotic, but he is compliant with medications, attends groups. MANAGEMENT PLAN: Medications: Clozaril 50 mg by mouth daily for schizophrenia, Haldol Decanoate 50 mg IM every 2 weeks for psychosis, Ativan 1 mg by mouth 3 times a day when necessary for agitation, Remeron 30 mg by mouth daily at bedtime when necessary for insomnia and Abilify 10 mg by mouth twice a day Psychotherapy: We will encouraged to attend groups (he has been attending than) Social: -- Misc: -- Disposition: Patient is to continue hospitalization and long-term treatment. He will be transferred to an institution that can provide him with a higher level of care. TIME SPENT: 20 minutes. Vital Signs Vital Signs Date Time Temp Pulse Resp B/P (MAP) Pulse Ox O2 Delivery O2 Flow Rate FiO2 03/19/17 18:52 99.7 95 16 114/66 (82) 03/16/17 06:46 Room Air Laboratory Data 24H Labs Laboratory Tests 2 03/20/17 09:30: White Blood Count 8.7, Red Blood Count 4.59, Hemoglobin 14.8, Hematocrit 41.9L, Mean Corpuscular Volume 91.4, Mean Corpuscular Hemoglobin 32.3, Mean Corpuscular Hemoglobin Concent 35.3, Red Cell Distribution Width 13.1, Platelet Count 208, Neutrophils (%) (Auto) 64.9, Lymphocytes (%) (Auto) 19.0L, Monocytes (%) (Auto) 7.5H, Eosinophils (%) (Auto) 6.0H, Basophils (%) (Auto) 0.9, Neutrophils # (Auto) 5.7, Lymphocytes # (Auto) 1.8, Monocytes # (Auto) 0.7, Eosinophils # (Auto) 0.5, Basophils # (Auto) 0.1, Large Unclassified Cells % 1.7 , Large Unclassified Cells # 0.2, Anion Gap 6L, Glomerular Filtration Rate > 60.0, Blood Urea Nitrogen 12, Creatinine 0.86, Sodium Level 141, Potassium Level 3.9, Chloride Level 104, Carbon Dioxide Level 31, Calcium Level 8.6, Aspartate Amino Transf (AST/SGOT) 18, Alanine Aminotransferase (ALT/SGPT) 39, Alkaline Phosphatase 54, Total Bilirubin 0.4, Total Protein 6.3L, Albumin 3.2, Albumin/Globulin Ratio 1.03 CBC/BMP Laboratory Tests 03/20/17 09:30 Red Blood Count 4.59, Mean Corpuscular Volume 91.4, Mean Corpuscular Hemoglobin 32.3, Mean Corpuscular Hemoglobin Concent 35.3, Red Cell Distribution Width 13.1 , Neutrophils (%) (Auto) 64.9, Lymphocytes (%) (Auto) 19.0 L, Monocytes (%) ( Auto) 7.5 H, Eosinophils (%) (Auto) 6.0 H, Basophils (%) (Auto) 0.9, Neutrophils # (Auto) 5.7, Lymphocytes # (Auto) 1.8, Monocytes # (Auto) 0.7, Eosinophils # (Auto) 0.5, Basophils # (Auto) 0.1, Calcium Level 8.6, Aspartate Amino Transf (AST/SGOT) 18, Alanine Aminotransferase (ALT/SGPT) 39, Alkaline Phosphatase 54, Total Bilirubin 0.4, Total Protein 6.3 L, Albumin 3.2 Current Medications Current Medications Acetaminophen (Tylenol Tab) 650 mg Q6HP PRN PO HEADACHE or DISCOMFORT Last administered on 02/11/17t 23:30; Start 02/03/17 at 15:45; Stop 04/04/17 at 15:44 Acetaminophen (Tylenol Tab) 650 mg Q6HP PRN PO HEADACHE or DISCOMFORT; Start at 19:15; Stop 04/04/17 at 19:14; Status Cancel Al Hydrox/Mg Hydrox/Simethicone (Mylanta) 30 ml Q4HP PRN PO HEARTBURN/ INDIGESTION; Start 02/03/17 at 15:45; Stop 03/05/17 at 15:44; Status DC Al Hydrox/Mg Hydrox/Simethicone (Mylanta) 30 ml Q4HP PRN PO HEARTBURN/ INDIGESTION Last administered on 03/15/17 17:05; Start 03/05/17 at 19:30; Stop 04/04/17 at 19:29 Al Hydrox/Mg Hydrox/Simethicone (Mylanta) 30 ml Q4HP PRN PO HEARTBURN/ INDIGESTION; Start 03/06/17 at 10:00; Stop 04/04/17 at 09:59; Status Cancel Aripiprazole (AbiLIFY) 2.5 mg QHS PO Last administered on 02/16/17 20:07; Start 02/07/17 at 21:00; Stop 02/17/17 at 12:25; Status DC Aripiprazole (AbiLIFY) 5 mg QHS PO Last administered on 02/23/17 21:06; Start 02/17/17 at 21:00; Stop 02/24/17 at 17:48; Status DC Aripiprazole (AbiLIFY) 7.5 mg BID PO Last administered on 02/25/17 08:02; Start 02/24/17 at 21:00; Stop 02/25/17 at 11:54; Status DC Aripiprazole (AbiLIFY) 10 mg BID PO Last administered on 03/20/17 08:38; Start 03/18/17 at 21:00; Stop 04/17/17 at 20:59 Aripiprazole (AbiLIFY) 10 mg BID PO Last administered on 03/03/17 08:14; Start 02/25/17 at 21:00; Stop 03/03/17 at 10:13; Status DC Aripiprazole (AbiLIFY) 15 mg BID PO Last administered on 03/08/17 08:08; Start 03/03/17 at 21:00; Stop 03/08/17 at 08:14; Status DC Aripiprazole (AbiLIFY) 15 mg BID PO ; Start 03/08/17 at 09:00; Stop 04/02/17 at 20:59; Status Cancel Aripiprazole (AbiLIFY) 15 mg BID PO Last administered on 03/10/17 08:03; Start 03/08/17 at 21:00; Stop 03/10/17 at 15:14; Status DC Aripiprazole (AbiLIFY) 15 mg BID PO Last administered on 03/18/17 08:37; Start 03/14/17 at 21:00; Stop 03/18/17 at 12:15; Status DC Aripiprazole (AbiLIFY) 20 mg BID PO Last administered on 03/14/17 08:05; Start 03/10/17 at 21:00; Stop 03/14/17 at 14:42; Status DC Benztropine Mesylate (Cogentin) 0.5 mg BID PO Last administered on 02/23/17 08: 43; Start 02/04/17 at 09:00; Stop 02/23/17 at 13:41; Status DC Benztropine Mesylate (Cogentin) 1 mg BID PO Last administered on 03/14/17 08: 05; Start 02/23/17 at 09:00; Stop 03/14/17 at 16:09; Status DC Benztropine Mesylate (Cogentin) 1 mg TID PO Last administered on 03/20/17 08:13 ; Start 03/14/17 at 21:00; Stop 03/25/17 at 08:59 Buspirone HCl (Buspar) 7.5 mg TID PO Last administered on 02/26/17 08:04; Start 02/04/17 at 16:00; Stop 02/26/17 at 12:48; Status DC Clozapine (Clozaril) 25 mg QHS PO Last administered on 03/19/17 20:23; Start 03/19/17 at 21:00; Stop 03/21/17 at 08:59 Clozapine (Clozaril) 50 mg QAM PO Last administered on 03/18/17 08:37; Start 03/14/17 at 09:00; Stop 03/18/17 at 21:20; Status DC Docusate Sodium (Colace) 100 mg BID PO Last administered on 03/20/17 08:13; Start 02/03/17 at 21:00; Stop 04/04/17 at 20:59 Gabapentin (Neurontin) 100 mg QAM PO Last administered on 02/24/17 08:14; Start 02/04/17 at 09:00; Stop 02/24/17 at 17:59; Status DC Gabapentin (Neurontin) 200 mg QAM PO Last administered on 03/19/17 08:04; Start 02/25/17 at 09:00; Stop 03/19/17 at 11:00; Status DC Gabapentin (Neurontin) 400 mg QHS PO Last administered on 03/18/17 20:56; Start 02/04/17 at 21:00; Stop 03/19/17 at 11:00; Status DC Haloperidol Decanoate (Haldol Decanoate) 50 mg Q14D STAT IM ; Start 02/18/17 at 20:24; Stop 02/18/17 at 20:25; Status Cancel Haloperidol Decanoate (Haldol Decanoate) 50 mg Q14D@0900 IM Last administered on 03/18/17 09:38; Start 03/18/17 at 09:00; Stop 04/17/17 at 08:59 Haloperidol Decanoate (Haldol Decanoate) 50 mg Q14D@14 IM Last administered on 03/04/17 13:27; Start 02/04/17 at 14:00; Stop 03/06/17 at 13:59; Status DC Home Med (Med Rec Complete!) ASDIRECTED XX ; Start 02/03/17 at 12:15; Stop at 12:15; Status DC Lorazepam (Ativan) 1 mg Q8HP PRN PO ANXIETY/AGITATION Last administered on 20:52; Start 02/03/17 at 15:45; Stop 02/26/17 at 12:48; Status DC Lorazepam (Ativan) 1 mg TID PO Last administered on 03/19/17 08:04; Start 08/05 at 16:00; Stop 03/19/17 at 11:02; Status DC Lorazepam (Ativan) 1 mg TID PRN PO Anxiety Last administered on 03/19/17 16:11 ; Start 03/19/17 at 11:15; Stop 03/26/17 at 11:14 Magnesium Hydroxide (Milk Of Magnesia) 30 ml DAILYPRN PRN PO CONSTIPATION; Start 02/03/17 at 15:45; Stop 03/05/17 at 15:44; Status DC Magnesium Hydroxide (Milk Of Magnesia) 30 ml DAILYPRN PRN PO CONSTIPATION; Start 03/05/17 at 19:15; Stop 04/04/17 at 19:14 Mirtazapine (Remeron) 15 mg QHS PO Last administered on 02/27/17 21:37; Start 02/04/17 at 21:00; Stop 02/28/17 at 09:19; Status DC Mirtazapine (Remeron) 30 mg QHS PO Last administered on 03/18/17 20:56; Start 02/28/17 at 21:00; Stop 03/19/17 at 11:02; Status DC Mirtazapine (Remeron) 30 mg QHS PRN PO Insomnia; Start 03/19/17 at 11:15; Stop 04/18/17 at 11:14 Miscellaneous (Unresolved Clarification Entry) SEE LABEL COMMENTS UNRESOLVED XX ; Start 03/07/17 at 00:01; Stop 03/10/17 at 15:08; Status DC Nicotine (Nicoderm Cq 21mg) 1 patch DAILY TD Last administered on 03/19/17 08: 04; Start 02/04/17 at 09:00; Stop 04/04/17 at 08:59 Olanzapine (ZyPREXA) 10 mg DAILY PO Last administered on 02/04/17 08:59; Start 02/03/17 at 09:00; Stop 02/04/17 at 14:20; Status DC Quetiapine Fumarate (SEROquel) 200 mg QHS PO ; Start 02/04/17 at 21:00; Stop at 13:42; Status DC Trazodone HCl (Desyrel) 50 mg QHSP PRN PO INSOMNIA; Start 02/03/17 at 16:45; Stop 03/05/17 at 16:44; Status Cancel Trazodone HCl (Desyrel) 50 mg QHSP PRN PO INSOMNIA Last administered on 21:49; Start 02/28/17 at 12:45; Stop 03/10/17 at 15:11; Status DC Venlafaxine HCl (Effexor Xr) 75 mg DAILY PO Last administered on 02/06/17 08:28; Start 02/04/17 at 09:00; Stop 02/06/17 at 18:02; Status DC Venlafaxine HCl (Effexor Xr) 150 mg BID PO Last administered on 03/20/17 08 :13; Start 03/07/17 at 09:00; Stop 04/06/17 at 08:59 Venlafaxine HCl (Effexor Xr) 150 mg QHS PO Last administered on 02/23/17 21 :05; Start 02/07/17 at 21:00; Stop 02/24/17 at 17:59; Status DC Venlafaxine HCl (Effexor) 150 mg BID PO Last administered on 03/06/17 20:04; Start 02/24/17 at 21:00; Stop 03/06/17 at 23:26; Status DC Allergies Coded Allergies: Loxapine (Verified Allergy, Mild, 01/21/13) Thiothixene (Verified Allergy, Mild, 01/21/13) Fluphenazine (Verified Allergy, Unknown, 09/12/15) UNKNOWN [place] (Verified Allergy, Unknown, UNKNOWN, 09/12/15) Meperidine (Verified Allergy, Unknown, UNKNOWN, 09/12/15) Phenothiazines (Verified Allergy, Unknown, UNKNOWN, 09/12/15) Thioridazine (Verified Allergy, Unknown, UNKNOWN, 09/12/15) KELVIN GARIBAY MD Mar 20, 2017 13:52
[2017-03-20 18:00] VITALS: BP 136/74
[2017-03-20] MEDS: cloZAPine 25 MG TAB (S0136) PO SCH (21:41)
[2017-03-21] MEDS: VENLAFAXINE **XR** 75MG CAPSULE PO SCH ×2 (08:19→20:54)
[2017-03-21] MEDS: ARIPiprazole 10 MG TAB PO SCH ×2 (08:19→20:54)
[2017-03-21] MEDS: BENZTROPINE 1 MG TAB PO SCH ×3 (08:19→20:54)
[2017-03-21] MEDS: DOCUSATE SODIUM 100 MG CAP PO SCH ×2 (08:19→20:54)
[2017-03-21] MEDS: NICOTINE 21MG/24HR 1 EA TRANSDERMAL TD SCH (08:20)
[2017-03-21] MEDS ORDERED: MIRTAZAPINE 15 MG TAB PO PRN (16:15)
[2017-03-21] MEDS: GABAPENTIN 300 MG CAP PO SCH ×2 (17:26→20:54)
[2017-03-21 18:00] VITALS: BP 105/77
[2017-03-21] MEDS: LORazepam 1 MG TAB PO SCH (20:53)
[2017-03-21] MEDS: cloZAPine 25 MG TAB (S0136) PO SCH (20:54)
[2017-03-21] MEDS ORDERED: GABAPENTIN 300 MG CAP PO SCH (21:00)
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
[2017-03-22] MEDS: DOCUSATE SODIUM 100 MG CAP PO SCH ×2 (08:09→21:04)
[2017-03-22] MEDS: LORazepam 1 MG TAB PO SCH ×3 (08:09→21:04)
[2017-03-22] MEDS: BENZTROPINE 1 MG TAB PO SCH ×3 (08:10→21:04)
[2017-03-22] MEDS: GABAPENTIN 300 MG CAP PO SCH ×3 (08:10→21:04)
[2017-03-22] MEDS: VENLAFAXINE **XR** 75MG CAPSULE PO SCH ×2 (08:10→21:04)
[2017-03-22] MEDS: NICOTINE 21MG/24HR 1 EA TRANSDERMAL TD SCH (08:11)
[2017-03-22] MEDS: ARIPiprazole 10 MG TAB PO SCH ×2 (08:11→21:04)
[2017-03-22 18:17] VITALS: BP 118/64
[2017-03-22] MEDS: cloZAPine 25 MG TAB (S0136) PO SCH (21:04)
[2017-03-23 06:00] VITALS: BP 142/76
[2017-03-23] MEDS: DOCUSATE SODIUM 100 MG CAP PO SCH ×2 (08:01→21:00)
[2017-03-23] MEDS: LORazepam 1 MG TAB PO SCH ×3 (08:01→21:00)
[2017-03-23] MEDS: BENZTROPINE 1 MG TAB PO SCH ×3 (08:01→21:00)
[2017-03-23] MEDS: GABAPENTIN 300 MG CAP PO SCH ×3 (08:01→21:00)
[2017-03-23] MEDS: VENLAFAXINE **XR** 75MG CAPSULE PO SCH ×2 (08:01→21:00)
[2017-03-23] MEDS: NICOTINE 21MG/24HR 1 EA TRANSDERMAL TD SCH (08:02)
[2017-03-23] MEDS: ARIPiprazole 10 MG TAB PO SCH ×2 (08:02→21:00)
[2017-03-23 18:00] VITALS: BP 117/66
[2017-03-23] MEDS: cloZAPine 25 MG TAB (S0136) PO SCH (21:00)
[2017-03-24 06:40] VITALS: BP 134/72
[2017-03-24] MEDS: ARIPiprazole 10 MG TAB PO SCH ×2 (08:03→20:11)
[2017-03-24] MEDS: VENLAFAXINE **XR** 75MG CAPSULE PO SCH ×2 (08:03→20:10)
[2017-03-24] MEDS: GABAPENTIN 300 MG CAP PO SCH ×3 (08:04→20:11)
[2017-03-24] MEDS: DOCUSATE SODIUM 100 MG CAP PO SCH ×2 (08:04→20:10)
[2017-03-24] MEDS: LORazepam 1 MG TAB PO SCH ×3 (08:04→20:10)
[2017-03-24] MEDS: BENZTROPINE 1 MG TAB PO SCH ×3 (08:04→20:11)
[2017-03-24] MEDS: NICOTINE 21MG/24HR 1 EA TRANSDERMAL TD SCH (08:07)
[2017-03-24 18:00] VITALS: BP 121/68
[2017-03-24] MEDS: cloZAPine 25 MG TAB (S0136) PO SCH (20:10)
--- NOTE | 2017-03-24 22:13 | IPN ---
DATE: 03/24/2017 Evaluated the patient known for paranoid schizophrenia, chronic. The patient stated that he has been feeling better, reported he slept well and he denied seeing people coming into his room to steal his clothes or to use his bathroom. The patient has repeatedly affirmed that there are people that come in to steal his clothes and use his restroom and he has reported feeling very scared from different people at the unit and outside of the unit. MENTAL STATUS EXAMINATION: The patient was alert, oriented to place and person, not to time and date. He was pleasant and cooperative, not aggressive, not violent. His speech is slightly tangential. His thought process is still a little bit disorganized. His thought content is negative for homicidal ideation, negative for suicide ideation and he denies auditory and visual hallucinations, but admits to feeling scared and still has persecutory delusions and says that there are people who want to kill him. He was not seen responding to internal stimuli. He is less isolated to his room and has been attending groups, although in some of those groups he does not participate; he is more like a listener. His recent and remote memory are impaired because of the cognitive deficit that has been provoked by the mental illness and his attention and concentration have improved a little. His insight and judgment continue to be poor and his impulse control is fair. DIAGNOSES: 1. Paranoid schizophrenia, chronic. MANAGEMENT PLAN: The patient will continue on the same medications. I will continue to wait for placement either at [facility] or at [facility]. The patient would rather go to [facility] and hopefully that will be the place that he will be transferred. He will continue to be monitored for auditory of visual hallucinations and for bizarre delusions. Will followup.
[2017-03-25] MEDS: NICOTINE 21MG/24HR 1 EA TRANSDERMAL TD SCH (08:04)
[2017-03-25] MEDS: ARIPiprazole 10 MG TAB PO SCH ×2 (08:05→22:42)
[2017-03-25] MEDS: LORazepam 1 MG TAB PO SCH ×3 (08:05→22:42)
[2017-03-25] MEDS: DOCUSATE SODIUM 100 MG CAP PO SCH ×2 (08:05→22:42)
[2017-03-25] MEDS: GABAPENTIN 300 MG CAP PO SCH ×3 (08:05→22:42)
[2017-03-25] MEDS: VENLAFAXINE **XR** 75MG CAPSULE PO SCH ×2 (08:05→22:42)
[2017-03-25] MEDS ORDERED: MYLASSUD PO (13:38)
[2017-03-25 18:00] VITALS: BP 118/78
[2017-03-25] MEDS: cloZAPine 25 MG TAB (S0136) PO SCH (22:42)
--- NOTE | 2017-03-25 23:51 | IPN ---
DATE: 03/25/2017 Evaluated 52-year-old male known for paranoid schizophrenia, chronic, and major depressive disorder. Today, patient refused to speak to this scientific technical writer. He would not explain as of why he did not want to talk, he just walked by my side and entered the lounge with the other patients, where this author tried to speak with him, and again he refused to. MENTAL STATUS EXAMINATION: The patient was alert, irritable, angry, with an uncooperative attitude, with good eye contact, dressed in personal clothes, with good hygiene. He was paranoid, suspicious and guarded. Possibly he was responding to internal stimuli. It was not possible to elicit further information from the patient because he refused to talk to this scientific technical writer. Will reassess tomorrow and we will try to elicit information as of why he was so guarded and irritable today. As per nursing staff, he has not had problems during the day with peers at the inpatient mental health unit. He continues to be on the same medications, but, precisely because of his mood and behavioral change observed today, Abilify was increased to 20 mg by mouth twice a day. Will continue to monitor closely. Will follow up.
[2017-03-26 06:05] VITALS: BP 111/67
[2017-03-26] MEDS: GABAPENTIN 300 MG CAP PO SCH ×3 (08:06→21:00)
[2017-03-26] MEDS: LORazepam 1 MG TAB PO SCH (08:06)
[2017-03-26] MEDS: DOCUSATE SODIUM 100 MG CAP PO SCH ×2 (08:06→21:00)
[2017-03-26] MEDS: NICOTINE 21MG/24HR 1 EA TRANSDERMAL TD SCH (08:06)
[2017-03-26] MEDS: VENLAFAXINE **XR** 75MG CAPSULE PO SCH ×2 (08:06→21:00)
[2017-03-26] MEDS: ARIPiprazole 10 MG TAB PO SCH ×2 (08:06→21:00)
--- NOTE | 2017-03-26 18:31 | MHIPNPDOC ---
[facility] Progress Note Progress Note DATE OF SERVICE: 03/26/17 INTERVAL HISTORY: Medication Side effects: Reports feeling very sleepy since he has been on Clozaril. Requested to discontinue Clozaril. He reports he already has received this medication before and he didn't like it because it makes him too sleepy and besides he has to have blood drawn every week. Behavior: Cooperative, pleasant, not guarded and suspicious as yesterday. Group Attendance: He keeps attending groups Psychiatric Symptom change: Less paranoid, less guarded and less suspicious today. VITAL SIGNS: See below. NEW TEST RESULTS: See below CURRENT MEDICATIONS: See below. MENTAL STATUS EXAMINATION: General: Alert, cooperative, with fair eye contact. Speech: Normal Thought processes: Less disorganized Thought content: Preoccupied about his future disposition. Perseverates about not wanting to go to [facility]. Abstract reasoning, and computation: Poor Description of associations: Not loose Description of abnormal or psychotic thoughts: Delusional thoughts, persecutory and paranoid type. He was not seen responding to internal stimuli but possibly he has auditory/visual hallucinations. Judgment: Poor Insight: Poor Orientation: Oriented to place and person only Recent and remote memory: Poor Attention span and concentration: Fair Fund of knowledge: Adequate Mood: "I'm okay. Yesterday I I was upset at some patients and staff" Affect: Constricted DIAGNOSES: 1. Paranoid schizophrenia. 2. Major depressive disorder, moderate. ASSESSMENT: Patient has improved, but he has ups and downs because yesterday he was extremely irritable and didn't want to speak to anybody. Today he is relaxed , pleasant and willing to speak. Continues to be delusional. MANAGEMENT PLAN: Medications: Clozaril 75 mg by mouth daily at bedtime for psychosis/ schizophrenia, venlafaxine 150 mg by mouth twice a day for depression/anxiety, Abilify 20 mg by mouth twice a day, gabapentin 600 mg by mouth twice a day and 300 mg by mouth daily at bedtime, Remeron 45 mg by mouth daily at bedtime, Ativan 1 mg by mouth 3 times a day, Haldol Decanoate 50 mg IM to 14 days. Psychotherapy: We'll continue to encourage to attend groups Social: And will encourage interaction with peers and staff Misc: -- Disposition: Pending transfer to long-term treatment facility TIME SPENT: 20 minutes. Vital Signs Vital Signs Date Time Temp Pulse Resp B/P (MAP) Pulse Ox O2 Delivery O2 Flow Rate FiO2 03/26/17 06:05 97.4 97 18 111/67 (82) Current Medications Current Medications Acetaminophen (Tylenol Tab) 650 mg Q6HP PRN PO HEADACHE or DISCOMFORT Last administered on 02/11/17 23:30; Start 02/03/17 at 15:45; Stop 04/04/17 at 15:44 Acetaminophen (Tylenol Tab) 650 mg Q6HP PRN PO HEADACHE or DISCOMFORT; Start at 19:15; Stop 04/04/17 at 19:14; Status Cancel Al Hydrox/Mg Hydrox/Simethicone (Mylanta) 30 ml Q4HP PRN PO HEARTBURN/ INDIGESTION; Start 02/03/17 at 15:45; Stop 03/05/17 at 15:44; Status DC Al Hydrox/Mg Hydrox/Simethicone (Mylanta) 30 ml Q4HP PRN PO HEARTBURN/ INDIGESTION Last administered on 03/15/17 17:05; Start 03/05/17 at 19:30; Stop 04/04/17 at 19:29 Al Hydrox/Mg Hydrox/Simethicone (Mylanta) 30 ml Q4HP PRN PO HEARTBURN/ INDIGESTION; Start 03/06/17 at 10:00; Stop 04/04/17 at 09:59; Status Cancel Aripiprazole (AbiLIFY) 2.5 mg QHS PO Last administered on 02/16/17 20:07; Start 02/07/17 at 21:00; Stop 02/17/17 at 12:25; Status DC Aripiprazole (AbiLIFY) 5 mg QHS PO Last administered on 02/23/17 21:06; Start 02/17/17 at 21:00; Stop 02/24/17 at 17:48; Status DC Aripiprazole (AbiLIFY) 7.5 mg BID PO Last administered on 02/25/17 08:02; Start 02/24/17 at 21:00; Stop 02/25/17 at 11:54; Status DC Aripiprazole (AbiLIFY) 10 mg BID PO Last administered on 03/21/17 08:19; Start 03/18/17 at 21:00; Stop 03/21/17 at 16:03; Status DC Aripiprazole (AbiLIFY) 10 mg BID PO Last administered on 03/03/17 08:14; Start 02/25/17 at 21:00; Stop 03/03/17 at 10:13; Status DC Aripiprazole (AbiLIFY) 15 mg BID PO Last administered on 03/08/17 08:08; Start 03/03/17 at 21:00; Stop 03/08/17 at 08:14; Status DC Aripiprazole (AbiLIFY) 15 mg BID PO ; Start 03/08/17 at 09:00; Stop 04/02/17 at 20:59; Status Cancel Aripiprazole (AbiLIFY) 15 mg BID PO Last administered on 03/10/17 08:03; Start 03/08/17 at 21:00; Stop 03/10/17 at 15:14; Status DC Aripiprazole (AbiLIFY) 15 mg BID PO Last administered on 03/18/17 08:37; Start 03/14/17 at 21:00; Stop 03/18/17 at 12:15; Status DC Aripiprazole (AbiLIFY) 15 mg BID PO Last administered on 03/25/17 08:05; Start 03/21/17 at 21:00; Stop 03/25/17 at 16:17; Status DC Aripiprazole (AbiLIFY) 20 mg BID PO Last administered on 03/14/17 08:05; Start 03/10/17 at 21:00; Stop 03/14/17 at 14:42; Status DC Aripiprazole (AbiLIFY) 20 mg BID PO Last administered on 03/26/17 08:06; Start 03/25/17 at 21:00; Stop 04/24/17 at 20:59 Benztropine Mesylate (Cogentin) 0.5 mg BID PO Last administered on 02/23/17 08: 43; Start 02/04/17 at 09:00; Stop 02/23/17 at 13:41; Status DC Benztropine Mesylate (Cogentin) 1 mg BID PO Last administered on 03/14/17 08: 05; Start 02/23/17 at 09:00; Stop 03/14/17 at 16:09; Status DC Benztropine Mesylate (Cogentin) 1 mg TID PO Last administered on 03/24/17 20:11 ; Start 03/14/17 at 21:00; Stop 03/25/17 at 08:59; Status DC Buspirone HCl (Buspar) 7.5 mg TID PO Last administered on 02/26/17 08:04; Start 02/04/17 at 16:00; Stop 02/26/17 at 12:48; Status DC Clozapine (Clozaril) 25 mg QHS PO Last administered on 03/20/17 21:41; Start at 21:00; Stop 03/21/17 at 08:59; Status DC Clozapine (Clozaril) 50 mg QAM PO Last administered on 03/18/17 08:37; Start 03/14/17 at 09:00; Stop 03/18/17 at 21:20; Status DC Clozapine (Clozaril) 50 mg QHS PO Last administered on 03/25/17 22:42; Start at 21:00; Stop 03/28/17 at 20:59 Docusate Sodium (Colace) 100 mg BID PO Last administered on 03/26/17 08:06; Start 02/03/17 at 21:00; Stop 04/04/17 at 20:59 Gabapentin (Neurontin) 100 mg QAM PO Last administered on 02/24/17 08:14; Start 02/04/17 at 09:00; Stop 02/24/17 at 17:59; Status DC Gabapentin (Neurontin) 200 mg QAM PO Last administered on 03/19/17 08:04; Start 02/25/17 at 09:00; Stop 03/19/17 at 11:00; Status DC Gabapentin (Neurontin) 300 mg QHS PO Last administered on 03/25/17 22:42; Start 03/21/17 at 21:00; Stop 04/20/17 at 20:59 Gabapentin (Neurontin) 300 mg TID PO ; Start 03/21/17 at 21:00; Stop 03/21/17 at 21:00; Status DC Gabapentin (Neurontin) 400 mg QHS PO Last administered on 03/18/17 20:56; Start 02/04/17 at 21:00; Stop 03/19/17 at 11:00; Status DC Gabapentin (Neurontin) 600 mg BID@0900,1600 PO Last administered on 03/26/17 15 :57; Start 03/21/17 at 16:00; Stop 04/20/17 at 15:59 Haloperidol Decanoate (Haldol Decanoate) 50 mg Q14D STAT IM ; Start 02/18/17 at 20:24; Stop 02/18/17 at 20:25; Status Cancel Haloperidol Decanoate (Haldol Decanoate) 50 mg Q14D@0900 IM Last administered on 03/18/17 09:38; Start 03/18/17 at 09:00; Stop 04/17/17 at 08:59 Haloperidol Decanoate (Haldol Decanoate) 50 mg Q14D@14 IM Last administered on 03/04/17 13:27; Start 02/04/17 at 14:00; Stop 03/06/17 at 13:59; Status DC Home Med (Med Rec Complete!) ASDIRECTED XX ; Start 02/03/17 at 12:15; Stop at 12:15; Status DC Lorazepam (Ativan) 1 mg Q8HP PRN PO ANXIETY/AGITATION Last administered on 20:52; Start 02/03/17 at 15:45; Stop 02/26/17 at 12:48; Status DC Lorazepam (Ativan) 1 mg TID PO Last administered on 03/19/17 08:04; Start 08/05 at 16:00; Stop 03/19/17 at 11:02; Status DC Lorazepam (Ativan) 1 mg TID PO Last administered on 03/26/17 08:06; Start at 21:00; Stop 03/26/17 at 11:14; Status DC Lorazepam (Ativan) 1 mg TID PRN PO Anxiety Last administered on 03/19/17 16:11 ; Start 03/19/17 at 11:15; Stop 03/21/17 at 16:07; Status DC Magnesium Hydroxide (Milk Of Magnesia) 30 ml DAILYPRN PRN PO CONSTIPATION; Start 02/03/17 at 15:45; Stop 03/05/17 at 15:44; Status DC Magnesium Hydroxide (Milk Of Magnesia) 30 ml DAILYPRN PRN PO CONSTIPATION Last administered on 03/24/17 15:50; Start 03/05/17 at 19:15; Stop 04/04/17 at 19:14 Mirtazapine (Remeron) 15 mg QHS PO Last administered on 02/27/17 21:37; Start 02/04/17 at 21:00; Stop 02/28/17 at 09:19; Status DC Mirtazapine (Remeron) 30 mg QHS PO Last administered on 03/18/17 20:56; Start 02/28/17 at 21:00; Stop 03/19/17 at 11:02; Status DC Mirtazapine (Remeron) 30 mg QHS PRN PO Insomnia; Start 03/19/17 at 11:15; Stop 03/21/17 at 16:05; Status DC Mirtazapine (Remeron) 45 mg QHSP PRN PO Insomnia; Start 03/21/17 at 16:15; Stop 04/20/17 at 16:14 Miscellaneous (Unresolved Clarification Entry) SEE LABEL COMMENTS UNRESOLVED XX ; Start 03/07/17 at 00:01; Stop 03/10/17 at 15:08; Status DC Nicotine (Nicoderm Cq 21mg) 1 patch DAILY TD Last administered on 03/26/17 08: 06; Start 02/04/17 at 09:00; Stop 04/04/17 at 08:59 Olanzapine (ZyPREXA) 10 mg DAILY PO Last administered on 02/04/17 08:59; Start 02/03/17 at 09:00; Stop 02/04/17 at 14:20; Status DC Quetiapine Fumarate (SEROquel) 200 mg QHS PO ; Start 02/04/17 at 21:00; Stop at 13:42; Status DC Trazodone HCl (Desyrel) 50 mg QHSP PRN PO INSOMNIA; Start 02/03/17 at 16:45; Stop 03/05/17 at 16:44; Status Cancel Trazodone HCl (Desyrel) 50 mg QHSP PRN PO INSOMNIA Last administered on 21:49; Start 02/28/17 at 12:45; Stop 03/10/17 at 15:11; Status DC Venlafaxine HCl (Effexor Xr) 75 mg DAILY PO Last administered on 02/06/17 08:28; Start 02/04/17 at 09:00; Stop 02/06/17 at 18:02; Status DC Venlafaxine HCl (Effexor Xr) 150 mg BID PO Last administered on 03/26/17 08 :06; Start 03/07/17 at 09:00; Stop 04/06/17 at 08:59 Venlafaxine HCl (Effexor Xr) 150 mg QHS PO Last administered on 02/23/17 21 :05; Start 02/07/17 at 21:00; Stop 02/24/17 at 17:59; Status DC Venlafaxine HCl (Effexor) 150 mg BID PO Last administered on 03/06/17 20:04; Start 02/24/17 at 21:00; Stop 03/06/17 at 23:26; Status DC Allergies Coded Allergies: Loxapine (Verified Allergy, Mild, 01/21/13) Thiothixene (Verified Allergy, Mild, 01/21/13) Fluphenazine (Verified Allergy, Unknown, 09/12/15) UNKNOWN [place] (Verified Allergy, Unknown, UNKNOWN, 09/12/15) Meperidine (Verified Allergy, Unknown, UNKNOWN, 09/12/15) Phenothiazines (Verified Allergy, Unknown, UNKNOWN, 09/12/15) Thioridazine (Verified Allergy, Unknown, UNKNOWN, 09/12/15) KELVIN GARIBAY MD Mar 26, 2017 18:31
[2017-03-26] MEDS: cloZAPine 25 MG TAB (S0136) PO SCH (21:00)
[2017-03-27] MEDS: NICOTINE 21MG/24HR 1 EA TRANSDERMAL TD SCH (08:06)
[2017-03-27] MEDS: VENLAFAXINE **XR** 75MG CAPSULE PO SCH ×2 (08:06→22:20)
[2017-03-27] MEDS: GABAPENTIN 300 MG CAP PO SCH ×3 (08:06→22:20)
[2017-03-27] MEDS: ARIPiprazole 10 MG TAB PO SCH ×2 (08:06→22:20)
[2017-03-27] MEDS: DOCUSATE SODIUM 100 MG CAP PO SCH ×2 (08:06→22:20)
--- NOTE | 2017-03-27 14:06 | MHIPNPDOC ---
[facility] Progress Note Progress Note INTERVAL HISTORY: Medication Side effects: He reports sleeping well, denies oversleeping for insomnia, denies all other medication side effects. Behavior: He has been attending groups, but continues to remain pretty isolated , has very little interaction with staff and peers Group Attendance: Attends groups Psychiatric Symptom change: Patient is very labile, he goes from being pleasant and cooperative to being irritable. VITAL SIGNS: See below. NEW TEST RESULTS: See below CURRENT MEDICATIONS: See below. MENTAL STATUS EXAMINATION: General: Alert, with mood shifts, initially cooperative then became very irritable. Speech: Soft spoken at times, got loud later when he got angry Thought processes: Irrational Thought content: In denial of his psychiatric illness: "Why do you want to give me more medication, what is what you expect from medications, what change to want to see in me, why do you think they have given me all those medications?" (Complete denial about his illness" Abstract reasoning, and computation: Unable to assess Description of associations: Loose Description of abnormal or psychotic thoughts: He has paranoid and persecutory delusions, bizarre thoughts and possibly auditory and visual hallucinations. Judgment: Poor Insight: Poor Orientation: Oriented to place and person only Recent and remote memory: Poor Attention span and concentration: Poor Fund of knowledge: Unable to assess Mood: Irritable Affect: Labile, irritable, angry DIAGNOSES: 1. Paranoid schizophrenia. 2. Major depressive disorder. ASSESSMENT: The patient will continue on current medications. He has stated that he doesn't like to take those many medications and yesterday had a conversation with this typewriter assembly and parts inspector about discontinuing Clozaril. This afternoon resealing conversation about Clozaril and in a bad mood all this typewriter assembly and parts inspector to reorder the Clozaril, got up from his chair left the room and slammed the door. Before he left he stated "so you want to start again the Clozaril? Go ahead and do it! Go and get your $[phone] and then talk to my hand meat salter!. The patient continues to be very paranoid and has mood changes as well as insight and judgment change. He can be close to normal one day and become irrational and paranoid in a couple of minutes MANAGEMENT PLAN: Medications: Will continue with current medications. Increase Clozaril to 75 mg by mouth daily at bedtime. Hopefully he will allow the helper animal laboratory problem from him. Psychotherapy: Will continue to encourage group attendance Social: He continues to interact poorly with staff and peers Misc: -- Disposition: He needs to continue at the hospital in order to be able to place him in long-term treatment facility (transfer him when bed becomes available) TIME SPENT: 20 minutes. Vital Signs Vital Signs Date Time Temp Pulse Resp B/P (MAP) Pulse Ox O2 Delivery O2 Flow Rate FiO2 03/26/17 06:05 97.4 97 18 111/67 (82) Current Medications Current Medications Acetaminophen (Tylenol Tab) 650 mg Q6HP PRN PO HEADACHE or DISCOMFORT Last administered on 02/11/17 23:30; Start 02/03/17 at 15:45; Stop 04/04/17 at 15:44 Acetaminophen (Tylenol Tab) 650 mg Q6HP PRN PO HEADACHE or DISCOMFORT; Start at 19:15; Stop 04/04/17 at 19:14; Status Cancel Al Hydrox/Mg Hydrox/Simethicone (Mylanta) 30 ml Q4HP PRN PO HEARTBURN/ INDIGESTION; Start 02/03/17 at 15:45; Stop 03/05/17 at 15:44; Status DC Al Hydrox/Mg Hydrox/Simethicone (Mylanta) 30 ml Q4HP PRN PO HEARTBURN/ INDIGESTION Last administered on 03/15/17 17:05; Start 03/05/17 at 19:30; Stop 04/04/17 at 19:29 Al Hydrox/Mg Hydrox/Simethicone (Mylanta) 30 ml Q4HP PRN PO HEARTBURN/ INDIGESTION; Start 03/06/17 at 10:00; Stop 04/04/17 at 09:59; Status Cancel Aripiprazole (AbiLIFY) 2.5 mg QHS PO Last administered on 02/16/17 20:07; Start 02/07/17 at 21:00; Stop 02/17/17 at 12:25; Status DC Aripiprazole (AbiLIFY) 5 mg QHS PO Last administered on 02/23/17 21:06; Start 02/17/17 at 21:00; Stop 02/24/17 at 17:48; Status DC Aripiprazole (AbiLIFY) 7.5 mg BID PO Last administered on 02/25/17 08:02; Start 02/24/17 at 21:00; Stop 02/25/17 at 11:54; Status DC Aripiprazole (AbiLIFY) 10 mg BID PO Last administered on 03/21/17 08:19; Start 03/18/17 at 21:00; Stop 03/21/17 at 16:03; Status DC Aripiprazole (AbiLIFY) 10 mg BID PO Last administered on 03/03/17 08:14; Start 02/25/17 at 21:00; Stop 03/03/17 at 10:13; Status DC Aripiprazole (AbiLIFY) 15 mg BID PO Last administered on 03/08/17 08:08; Start 03/03/17 at 21:00; Stop 03/08/17 at 08:14; Status DC Aripiprazole (AbiLIFY) 15 mg BID PO ; Start 03/08/17 at 09:00; Stop 04/02/17 at 20:59; Status Cancel Aripiprazole (AbiLIFY) 15 mg BID PO Last administered on 03/10/17 08:03; Start 03/08/17 at 21:00; Stop 03/10/17 at 15:14; Status DC Aripiprazole (AbiLIFY) 15 mg BID PO Last administered on 03/18/17 08:37; Start 03/14/17 at 21:00; Stop 03/18/17 at 12:15; Status DC Aripiprazole (AbiLIFY) 15 mg BID PO Last administered on 03/25/17 08:05; Start 03/21/17 at 21:00; Stop 03/25/17 at 16:17; Status DC Aripiprazole (AbiLIFY) 20 mg BID PO Last administered on 03/14/17 08:05; Start 03/10/17 at 21:00; Stop 03/14/17 at 14:42; Status DC Aripiprazole (AbiLIFY) 20 mg BID PO Last administered on 03/27/17 08:06; Start 03/25/17 at 21:00; Stop 04/24/17 at 20:59 Benztropine Mesylate (Cogentin) 0.5 mg BID PO Last administered on 02/23/17 08: 43; Start 02/04/17 at 09:00; Stop 02/23/17 at 13:41; Status DC Benztropine Mesylate (Cogentin) 1 mg BID PO Last administered on 03/14/17 08: 05; Start 02/23/17 at 09:00; Stop 03/14/17 at 16:09; Status DC Benztropine Mesylate (Cogentin) 1 mg TID PO Last administered on 03/24/17 20:11 ; Start 03/14/17 at 21:00; Stop 03/25/17 at 08:59; Status DC Buspirone HCl (Buspar) 7.5 mg TID PO Last administered on 02/26/17 08:04; Start 02/04/17 at 16:00; Stop 02/26/17 at 12:48; Status DC Clozapine (Clozaril) 25 mg QHS PO Last administered on 03/20/17 21:41; Start at 21:00; Stop 03/21/17 at 08:59; Status DC Clozapine (Clozaril) 50 mg QAM PO Last administered on 03/18/17 08:37; Start 03/14/17 at 09:00; Stop 03/18/17 at 21:20; Status DC Clozapine (Clozaril) 50 mg QHS PO Last administered on 03/25/17 22:42; Start at 21:00; Stop 03/27/17 at 13:54; Status DC Clozapine (Clozaril) 75 mg QHS PO ; Start 03/27/17 at 21:00; Stop 04/03/17 at 20: 59; Status UNV Docusate Sodium (Colace) 100 mg BID PO Last administered on 03/27/17 08:06; Start 02/03/17 at 21:00; Stop 04/04/17 at 20:59 Gabapentin (Neurontin) 100 mg QAM PO Last administered on 02/24/17 08:14; Start 02/04/17 at 09:00; Stop 02/24/17 at 17:59; Status DC Gabapentin (Neurontin) 200 mg QAM PO Last administered on 03/19/17 08:04; Start 02/25/17 at 09:00; Stop 03/19/17 at 11:00; Status DC Gabapentin (Neurontin) 300 mg QHS PO Last administered on 03/25/17 22:42; Start 03/21/17 at 21:00; Stop 04/20/17 at 20:59 Gabapentin (Neurontin) 300 mg TID PO ; Start 03/21/17 at 21:00; Stop 03/21/17 at 21:00; Status DC Gabapentin (Neurontin) 400 mg QHS PO Last administered on 03/18/17 20:56; Start 02/04/17 at 21:00; Stop 03/19/17 at 11:00; Status DC Gabapentin (Neurontin) 600 mg BID@0900,1600 PO Last administered on 03/27/17 08 :06; Start 03/21/17 at 16:00; Stop 04/20/17 at 15:59 Haloperidol Decanoate (Haldol Decanoate) 50 mg Q14D STAT IM ; Start 02/18/17 at 20:24; Stop 02/18/17 at 20:25; Status Cancel Haloperidol Decanoate (Haldol Decanoate) 50 mg Q14D@0900 IM Last administered on 03/18/17 09:38; Start 03/18/17 at 09:00; Stop 04/17/17 at 08:59 Haloperidol Decanoate (Haldol Decanoate) 50 mg Q14D@14 IM Last administered on 03/04/17 13:27; Start 02/04/17 at 14:00; Stop 03/06/17 at 13:59; Status DC Home Med (Med Rec Complete!) ASDIRECTED XX ; Start 02/03/17 at 12:15; Stop at 12:15; Status DC Lorazepam (Ativan) 1 mg Q8HP PRN PO ANXIETY/AGITATION Last administered on 20:52; Start 02/03/17 at 15:45; Stop 02/26/17 at 12:48; Status DC Lorazepam (Ativan) 1 mg TID PO Last administered on 03/19/17 08:04; Start 08/05 at 16:00; Stop 03/19/17 at 11:02; Status DC Lorazepam (Ativan) 1 mg TID PO Last administered on 03/26/17 08:06; Start at 21:00; Stop 03/26/17 at 11:14; Status DC Lorazepam (Ativan) 1 mg TID PRN PO Anxiety Last administered on 03/19/17 16:11 ; Start 03/19/17 at 11:15; Stop 03/21/17 at 16:07; Status DC Magnesium Hydroxide (Milk Of Magnesia) 30 ml DAILYPRN PRN PO CONSTIPATION; Start 02/03/17 at 15:45; Stop 03/05/17 at 15:44; Status DC Magnesium Hydroxide (Milk Of Magnesia) 30 ml DAILYPRN PRN PO CONSTIPATION Last administered on 03/24/17 15:50; Start 03/05/17 at 19:15; Stop 04/04/17 at 19:14 Mirtazapine (Remeron) 15 mg QHS PO Last administered on 02/27/17 21:37; Start 02/04/17 at 21:00; Stop 02/28/17 at 09:19; Status DC Mirtazapine (Remeron) 30 mg QHS PO Last administered on 03/18/17 20:56; Start 02/28/17 at 21:00; Stop 03/19/17 at 11:02; Status DC Mirtazapine (Remeron) 30 mg QHS PRN PO Insomnia; Start 03/19/17 at 11:15; Stop 03/21/17 at 16:05; Status DC Mirtazapine (Remeron) 45 mg QHSP PRN PO Insomnia; Start 03/21/17 at 16:15; Stop 04/20/17 at 16:14 Miscellaneous (Unresolved Clarification Entry) SEE LABEL COMMENTS UNRESOLVED XX ; Start 03/07/17 at 00:01; Stop 03/10/17 at 15:08; Status DC Nicotine (Nicoderm Cq 21mg) 1 patch DAILY TD Last administered on 03/27/17 08: 06; Start 02/04/17 at 09:00; Stop 04/04/17 at 08:59 Olanzapine (ZyPREXA) 10 mg DAILY PO Last administered on 02/04/17 08:59; Start 02/03/17 at 09:00; Stop 02/04/17 at 14:20; Status DC Quetiapine Fumarate (SEROquel) 200 mg QHS PO ; Start 02/04/17 at 21:00; Stop at 13:42; Status DC Trazodone HCl (Desyrel) 50 mg QHSP PRN PO INSOMNIA; Start 02/03/17 at 16:45; Stop 03/05/17 at 16:44; Status Cancel Trazodone HCl (Desyrel) 50 mg QHSP PRN PO INSOMNIA Last administered on 21:49; Start 02/28/17 at 12:45; Stop 03/10/17 at 15:11; Status DC Venlafaxine HCl (Effexor Xr) 75 mg DAILY PO Last administered on 02/06/17 08:28; Start 02/04/17 at 09:00; Stop 02/06/17 at 18:02; Status DC Venlafaxine HCl (Effexor Xr) 150 mg BID PO Last administered on 03/27/17 08 :06; Start 03/07/17 at 09:00; Stop 04/06/17 at 08:59 Venlafaxine HCl (Effexor Xr) 150 mg QHS PO Last administered on 02/23/17 21 :05; Start 02/07/17 at 21:00; Stop 02/24/17 at 17:59; Status DC Venlafaxine HCl (Effexor) 150 mg BID PO Last administered on 03/06/17 20:04; Start 02/24/17 at 21:00; Stop 03/06/17 at 23:26; Status DC Allergies Coded Allergies: Loxapine (Verified Allergy, Mild, 01/21/13) Thiothixene (Verified Allergy, Mild, 01/21/13) Fluphenazine (Verified Allergy, Unknown, 09/12/15) UNKNOWN [place] (Verified Allergy, Unknown, UNKNOWN, 09/12/15) Meperidine (Verified Allergy, Unknown, UNKNOWN, 09/12/15) Phenothiazines (Verified Allergy, Unknown, UNKNOWN, 09/12/15) Thioridazine (Verified Allergy, Unknown, UNKNOWN, 09/12/15) KELVIN GARIBAY MD Mar 27, 2017 14:06
[2017-03-27 18:29] VITALS: BP 114/72
[2017-03-27] MEDS: ACETAMINOPHEN TAB 650MG DOSE (2X325MG) PO PRN (19:37)
[2017-03-27] MEDS: cloZAPine 25 MG TAB (S0136) PO SCH (22:20)
[2017-03-27] MEDS: MAALOX 30 ML SUSP *UDC PO PRN (23:19)
[2017-03-28 07:16] VITALS: BP 105/71
[2017-03-28] MEDS: GABAPENTIN 300 MG CAP PO SCH ×3 (08:02→20:07)
[2017-03-28] MEDS: DOCUSATE SODIUM 100 MG CAP PO SCH ×2 (08:02→20:07)
[2017-03-28] MEDS: VENLAFAXINE **XR** 75MG CAPSULE PO SCH ×2 (08:02→20:07)
[2017-03-28] MEDS: ARIPiprazole 10 MG TAB PO SCH ×2 (08:02→20:07)
[2017-03-28] MEDS: NICOTINE 21MG/24HR 1 EA TRANSDERMAL TD SCH (08:02)
[2017-03-28 09:03] LABS: BASO # 0.1 K/mm3 (0.0-0.2); EOS # 0.4 K/mm3 (0.0-0.50); EOS % 4.7 % (0.0-3.0); LARGE UNSTAINED CELL # 0.2 K/mm3 (0.0-0.4); LARGE UNSTAINED CELL % 2.2 % (0.0-4.0); LYMPH # 1.8 K/mm3 (1.5-4.5); LYMPH % 19.5 % (24.0-44.0); MEAN CORPUSCULAR HEMOGLOBIN 32.4 pg (27.0-33.0); MEAN CORPUSCULAR HGB CONC 35.7 g/dl (32.0-36.5); MEAN CORPUSCULAR VOLUME 90.9 fl (80.0-96.0); MONO # 0.6 K/mm3 (0.0-0.8); MONO % 6.3 % (0.0-5.0); NEUTROPHILS # 6.3 K/mm3 (1.8-7.7); NEUTROPHILS % 66.3 % (36.0-66.0); PLATELET COUNT, AUTOMATED 232 k/mm3 (150-450); RED CELL DISTRIBUTION WIDTH 12.7 % (11.5-14.5); WHITE BLOOD COUNT 9.4 K/mm3 (4.0-10.0)
[2017-03-28] MEDS: cloZAPine 25 MG TAB (S0136) PO SCH (20:07)
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
[2017-03-29] MEDS: ARIPiprazole 10 MG TAB PO SCH ×2 (08:03→21:00)
[2017-03-29] MEDS: DOCUSATE SODIUM 100 MG CAP PO SCH ×2 (08:03→21:00)
[2017-03-29] MEDS: VENLAFAXINE **XR** 75MG CAPSULE PO SCH ×2 (08:03→21:00)
[2017-03-29] MEDS: GABAPENTIN 300 MG CAP PO SCH ×3 (08:03→21:00)
[2017-03-29] MEDS: NICOTINE 21MG/24HR 1 EA TRANSDERMAL TD SCH (08:04)
[2017-03-29] MEDS: cloZAPine 25 MG TAB (S0136) PO SCH (21:00)
[2017-03-30 06:00] VITALS: BP 111/67
[2017-03-30] MEDS: VENLAFAXINE **XR** 75MG CAPSULE PO SCH ×2 (08:02→21:13)
[2017-03-30] MEDS: ARIPiprazole 10 MG TAB PO SCH ×2 (08:02→21:13)
[2017-03-30] MEDS: GABAPENTIN 300 MG CAP PO SCH ×3 (08:02→21:13)
[2017-03-30] MEDS: NICOTINE 21MG/24HR 1 EA TRANSDERMAL TD SCH (08:02)
[2017-03-30] MEDS: DOCUSATE SODIUM 100 MG CAP PO SCH ×2 (08:04→21:13)
[2017-03-30] MEDS: cloZAPine 25 MG TAB (S0136) PO SCH (21:13)
[2017-03-31] MEDS: DOCUSATE SODIUM 100 MG CAP PO SCH ×2 (09:03→21:00)
[2017-03-31] MEDS: NICOTINE 21MG/24HR 1 EA TRANSDERMAL TD SCH (09:03)
[2017-03-31] MEDS: GABAPENTIN 300 MG CAP PO SCH ×3 (09:03→22:58)
[2017-03-31] MEDS: ARIPiprazole 10 MG TAB PO SCH ×2 (09:03→22:59)
[2017-03-31] MEDS: VENLAFAXINE **XR** 75MG CAPSULE PO SCH ×2 (09:03→22:58)
--- NOTE | 2017-03-31 17:52 | MHIPNPDOC ---
[facility] Progress Note Progress Note DATE OF SERVICE: 03/31/17 INTERVAL HISTORY: Medication Side effects: Denies Behavior: Patient has been seen less guarded Group Attendance: Has been attending groups Psychiatric Symptom change: Less guarded , more talkative, more engaging VITAL SIGNS: See below. NEW TEST RESULTS: See below CURRENT MEDICATIONS: See below. MENTAL STATUS EXAMINATION: General: Alert, oriented 3, cooperative with interview with fair eye contact, dressed appropriately with good hygiene Speech: Normal, soft spoken and occasionally tangential Thought processes: Less disorganized Thought content: He continues thinking about what is going to happen to him, worries he going to go after he is discharged from the inpatient mental health unit. Abstract reasoning, and computation: Poor Description of associations: Not loose Description of abnormal or psychotic thoughts: Denies homicidal and suicidal thoughts, denies auditory and visual hallucinations but continues to endorse persecutory and paranoid ideas although with less frequenCY. Judgment: Poor Insight: Poor Orientation: Oriented place and person only Recent and remote memory: Limited due to mental illness that has caused cognitive impairment Attention span and concentration: Limited Fund of knowledge: Limited Mood: "I'm fine" Affect: Anxious, depressed but less than before. DIAGNOSES: 1. Paranoid schizophrenia. 2. Major depressive disorder. 3. . ASSESSMENT: Patient continues to be paranoid and delusional but his mood has improved, he is less anxious and less irritable although he continues to be depressed but he seems less depressed than before. 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 Hopefully this time he will be able to remain stable for a longer period of time. MANAGEMENT PLAN: Medications: Will continue on current medications Psychotherapy: Will encourage him to keep attending groups Social: Has been slightly more interactive with staff [facility] [place]: -- Disposition: The patient continues to wait for a bed to become available at [facility]. He will need long-term treatment hospitalization for a higher level of care. TIME SPENT: 20 minutes. Vital Signs Vital Signs Date Time Temp Pulse Resp B/P (MAP) Pulse Ox O2 Delivery O2 Flow Rate FiO2 03/30/17 06:00 98.0 100 16 111/67 (82) Current Medications Current Medications Acetaminophen (Tylenol Tab) 650 mg Q6HP PRN PO HEADACHE or DISCOMFORT Last administered on 6/8/17at 19:37; Start 02/03/17 at 15:45; Stop 04/04/17 at 15:44 Acetaminophen (Tylenol Tab) 650 mg Q6HP PRN PO HEADACHE or DISCOMFORT; Start at 19:15; Stop 04/04/17 at 19:14; Status Cancel Al Hydrox/Mg Hydrox/Simethicone (Mylanta) 30 ml Q4HP PRN PO HEARTBURN/ INDIGESTION; Start 02/03/17 at 15:45; Stop 03/05/17 at 15:44; Status DC Al Hydrox/Mg Hydrox/Simethicone (Mylanta) 30 ml Q4HP PRN PO HEARTBURN/ INDIGESTION Last administered on 03/27/17 23:19; Start 03/05/17 at 19:30; Stop 04/04/17 at 19:29 Al Hydrox/Mg Hydrox/Simethicone (Mylanta) 30 ml Q4HP PRN PO HEARTBURN/ INDIGESTION; Start 03/06/17 at 10:00; Stop 04/04/17 at 09:59; Status Cancel Aripiprazole (AbiLIFY) 2.5 mg QHS PO Last administered on 02/16/17 20:07; Start 02/07/17 at 21:00; Stop 02/17/17 at 12:25; Status DC Aripiprazole (AbiLIFY) 5 mg QHS PO Last administered on 02/23/17 21:06; Start 02/17/17 at 21:00; Stop 02/24/17 at 17:48; Status DC Aripiprazole (AbiLIFY) 7.5 mg BID PO Last administered on 02/25/17 08:02; Start 02/24/17 at 21:00; Stop 02/25/17 at 11:54; Status DC Aripiprazole (AbiLIFY) 10 mg BID PO Last administered on 03/21/17 08:19; Start 03/18/17 at 21:00; Stop 03/21/17 at 16:03; Status DC Aripiprazole (AbiLIFY) 10 mg BID PO Last administered on 03/03/17 08:14; Start 02/25/17 at 21:00; Stop 03/03/17 at 10:13; Status DC Aripiprazole (AbiLIFY) 15 mg BID PO Last administered on 03/08/17 08:08; Start 03/03/17 at 21:00; Stop 03/08/17 at 08:14; Status DC Aripiprazole (AbiLIFY) 15 mg BID PO ; Start 03/08/17 at 09:00; Stop 04/02/17 at 20:59; Status Cancel Aripiprazole (AbiLIFY) 15 mg BID PO Last administered on 03/10/17 08:03; Start 03/08/17 at 21:00; Stop 03/10/17 at 15:14; Status DC Aripiprazole (AbiLIFY) 15 mg BID PO Last administered on 03/18/17 08:37; Start 03/14/17 at 21:00; Stop 03/18/17 at 12:15; Status DC Aripiprazole (AbiLIFY) 15 mg BID PO Last administered on 03/25/17 08:05; Start 03/21/17 at 21:00; Stop 03/25/17 at 16:17; Status DC Aripiprazole (AbiLIFY) 20 mg BID PO Last administered on 03/14/17 08:05; Start 03/10/17 at 21:00; Stop 03/14/17 at 14:42; Status DC Aripiprazole (AbiLIFY) 20 mg BID PO Last administered on 03/31/17 09:03; Start 03/25/17 at 21:00; Stop 04/24/17 at 20:59 Benztropine Mesylate (Cogentin) 0.5 mg BID PO Last administered on 02/23/17 08: 43; Start 02/04/17 at 09:00; Stop 02/23/17 at 13:41; Status DC Benztropine Mesylate (Cogentin) 1 mg BID PO Last administered on 03/14/17 08: 05; Start 02/23/17 at 09:00; Stop 03/14/17 at 16:09; Status DC Benztropine Mesylate (Cogentin) 1 mg TID PO Last administered on 03/24/17 20:11 ; Start 03/14/17 at 21:00; Stop 03/25/17 at 08:59; Status DC Buspirone HCl (Buspar) 7.5 mg TID PO Last administered on 02/26/17 08:04; Start 02/04/17 at 16:00; Stop 02/26/17 at 12:48; Status DC Clozapine (Clozaril) 25 mg QHS PO Last administered on 03/20/17 21:41; Start at 21:00; Stop 03/21/17 at 08:59; Status DC Clozapine (Clozaril) 50 mg QAM PO Last administered on 03/18/17 08:37; Start 03/14/17 at 09:00; Stop 03/18/17 at 21:20; Status DC Clozapine (Clozaril) 50 mg QHS PO Last administered on 03/25/17 22:42; Start at 21:00; Stop 03/27/17 at 13:55; Status DC Clozapine (Clozaril) 75 mg QHS PO Last administered on 03/30/17 21:13; Start 03/27/17 at 21:00; Stop 04/03/17 at 20:59 Docusate Sodium (Colace) 100 mg BID PO Last administered on 03/31/17 09:03; Start 02/03/17 at 21:00; Stop 04/04/17 at 20:59 Gabapentin (Neurontin) 100 mg QAM PO Last administered on 02/24/17 08:14; Start 02/04/17 at 09:00; Stop 02/24/17 at 17:59; Status DC Gabapentin (Neurontin) 200 mg QAM PO Last administered on 03/19/17 08:04; Start 02/25/17 at 09:00; Stop 03/19/17 at 11:00; Status DC Gabapentin (Neurontin) 300 mg QHS PO Last administered on 03/30/17 21:13; Start 03/21/17 at 21:00; Stop 04/20/17 at 20:59 Gabapentin (Neurontin) 300 mg TID PO ; Start 03/21/17 at 21:00; Stop 03/21/17 at 21:00; Status DC Gabapentin (Neurontin) 400 mg QHS PO Last administered on 03/18/17 20:56; Start 02/04/17 at 21:00; Stop 03/19/17 at 11:00; Status DC Gabapentin (Neurontin) 600 mg BID@0900,1600 PO Last administered on 03/31/17 15:21; Start 03/21/17 at 16:00; Stop 04/20/17 at 15:59 Haloperidol Decanoate (Haldol Decanoate) 50 mg Q14D STAT IM ; Start 02/18/17 at 20:24; Stop 02/18/17 at 20:25; Status Cancel Haloperidol Decanoate (Haldol Decanoate) 50 mg Q14D@0900 IM Last administered on 03/18/17 09:38; Start 03/18/17 at 09:00; Stop 04/17/17 at 08:59 Haloperidol Decanoate (Haldol Decanoate) 50 mg Q14D@14 IM Last administered on 03/04/17 13:27; Start 02/04/17 at 14:00; Stop 03/06/17 at 13:59; Status DC Home Med (Med Rec Complete!) ASDIRECTED XX ; Start 02/03/17 at 12:15; Stop at 12:15; Status DC Lorazepam (Ativan) 1 mg Q8HP PRN PO ANXIETY/AGITATION Last administered on 20:52; Start 02/03/17 at 15:45; Stop 02/26/17 at 12:48; Status DC Lorazepam (Ativan) 1 mg TID PO Last administered on 03/19/17 08:04; Start 08/05 at 16:00; Stop 03/19/17 at 11:02; Status DC Lorazepam (Ativan) 1 mg TID PO Last administered on 03/26/17 08:06; Start at 21:00; Stop 03/26/17 at 11:14; Status DC Lorazepam (Ativan) 1 mg TID PRN PO Anxiety Last administered on 03/19/17 16:11 ; Start 03/19/17 at 11:15; Stop 03/21/17 at 16:07; Status DC Magnesium Hydroxide (Milk Of Magnesia) 30 ml DAILYPRN PRN PO CONSTIPATION; Start 02/03/17 at 15:45; Stop 03/05/17 at 15:44; Status DC Magnesium Hydroxide (Milk Of Magnesia) 30 ml DAILYPRN PRN PO CONSTIPATION Last administered on 03/24/17 15:50; Start 03/05/17 at 19:15; Stop 04/04/17 at 19:14 Mirtazapine (Remeron) 15 mg QHS PO Last administered on 02/27/17 21:37; Start 02/04/17 at 21:00; Stop 02/28/17 at 09:19; Status DC Mirtazapine (Remeron) 30 mg QHS PO Last administered on 03/18/17 20:56; Start 02/28/17 at 21:00; Stop 03/19/17 at 11:02; Status DC Mirtazapine (Remeron) 30 mg QHS PRN PO Insomnia; Start 03/19/17 at 11:15; Stop 03/21/17 at 16:05; Status DC Mirtazapine (Remeron) 45 mg QHSP PRN PO Insomnia; Start 03/21/17 at 16:15; Stop 04/20/17 at 16:14 Miscellaneous (Unresolved Clarification Entry) SEE LABEL COMMENTS UNRESOLVED XX ; Start 03/07/17 at 00:01; Stop 03/10/17 at 15:08; Status DC Nicotine (Nicoderm Cq 21mg) 1 patch DAILY TD Last administered on 03/31/17 09: 03; Start 02/04/17 at 09:00; Stop 04/04/17 at 08:59 Olanzapine (ZyPREXA) 10 mg DAILY PO Last administered on 02/04/17 08:59; Start 02/03/17 at 09:00; Stop 02/04/17 at 14:20; Status DC Quetiapine Fumarate (SEROquel) 200 mg QHS PO ; Start 02/04/17 at 21:00; Stop at 13:42; Status DC Trazodone HCl (Desyrel) 50 mg QHSP PRN PO INSOMNIA; Start 02/03/17 at 16:45; Stop 03/05/17 at 16:44; Status Cancel Trazodone HCl (Desyrel) 50 mg QHSP PRN PO INSOMNIA Last administered on 21:49; Start 02/28/17 at 12:45; Stop 03/10/17 at 15:11; Status DC Venlafaxine HCl (Effexor Xr) 75 mg DAILY PO Last administered on 02/06/17 08:28; Start 02/04/17 at 09:00; Stop 02/06/17 at 18:02; Status DC Venlafaxine HCl (Effexor Xr) 150 mg BID PO Last administered on 03/31/17 09:03; Start 03/07/17 at 09:00; Stop 04/06/17 at 08:59 Venlafaxine HCl (Effexor Xr) 150 mg QHS PO Last administered on 02/23/17 21 :05; Start 02/07/17 at 21:00; Stop 02/24/17 at 17:59; Status DC Venlafaxine HCl (Effexor) 150 mg BID PO Last administered on 03/06/17 20:04; Start 02/24/17 at 21:00; Stop 03/06/17 at 23:26; Status DC Allergies Coded Allergies: Loxapine (Verified Allergy, Mild, 01/21/13) Thiothixene (Verified Allergy, Mild, 01/21/13) Fluphenazine (Verified Allergy, Unknown, 09/12/15) UNKNOWN [place] (Verified Allergy, Unknown, UNKNOWN, 09/12/15) Meperidine (Verified Allergy, Unknown, UNKNOWN, 09/12/15) Phenothiazines (Verified Allergy, Unknown, UNKNOWN, 09/12/15) Thioridazine (Verified Allergy, Unknown, UNKNOWN, 09/12/15) KELVIN GARIBAY MD Mar 31, 2017 17:52
[2017-03-31 18:00] VITALS: BP 130/75
[2017-03-31] MEDS: cloZAPine 25 MG TAB (S0136) PO SCH (22:58)
[2017-04-01] MEDS: ARIPiprazole 10 MG TAB PO SCH ×2 (07:58→19:56)
[2017-04-01] MEDS: VENLAFAXINE **XR** 75MG CAPSULE PO SCH ×2 (07:58→19:56)
[2017-04-01] MEDS: GABAPENTIN 300 MG CAP PO SCH ×3 (07:58→19:56)
[2017-04-01] MEDS: NICOTINE 21MG/24HR 1 EA TRANSDERMAL TD SCH (07:58)
[2017-04-01] MEDS: DOCUSATE SODIUM 100 MG CAP PO SCH ×2 (07:58→19:55)
[2017-04-01] MEDS: HALOPERIDOL DECANOATE 100 MG/ML VIAL (J1631) IM SCH (10:33)
[2017-04-01 18:34] VITALS: BP 122/69
[2017-04-01] MEDS: cloZAPine 25 MG TAB (S0136) PO SCH (19:56)
[2017-04-01] MEDS: MAALOX 30 ML SUSP *UDC PO PRN (22:41)
--- NOTE | 2017-04-02 05:57 | ECGEPIP ---
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
[2017-04-02] MEDS: VENLAFAXINE **XR** 75MG CAPSULE PO SCH ×2 (07:58→21:20)
[2017-04-02] MEDS: DOCUSATE SODIUM 100 MG CAP PO SCH ×2 (07:58→21:19)
[2017-04-02] MEDS: ARIPiprazole 10 MG TAB PO SCH ×2 (07:58→21:19)
[2017-04-02] MEDS: NICOTINE 21MG/24HR 1 EA TRANSDERMAL TD SCH (07:58)
[2017-04-02] MEDS: GABAPENTIN 300 MG CAP PO SCH ×3 (07:59→21:19)
--- NOTE | 2017-04-02 10:06 | IPN ---
DATE OF SERVICE: 04/01/2017 Evaluated 52-year-old male known for paranoid schizophrenia and major depressive disorder. Interval history, medication side effects, denies behavior. The patient today was seen less guarded and suspicious during the morning hours, but he was irritable and guarded in the afternoon. Group attendance, he continues to attend groups, although in some of them, he does not participate. Psychiatric symptoms change. He is less isolated to his room and less guarded. On mental status examination, he is alert, he is oriented only to place and person. He is cooperative with interview with occasional eye contact with good hygiene and dressed appropriately. Speech is normal. Occasionally, he becomes tangential. Thought process: He is less disorganized, but he is still irrational. His thought content continues to persevere about "Where am I going to go? Where am I going now?" Abstract reasoning and computation are poor. Description of associations, they are not loose. Description of abnormal or psychotic thoughts, he continues to have paranoid and persecutory delusions, but he denies auditory and visual hallucinations. Denies homicidal and suicidal thoughts. His judgment is poor. His insight is poor. His recent and remote memory are poor due to the cognitive infirmity caused by the illness and the long-term treatment with antipsychotics. Attention span and concentration are limited. Fund of knowledge is limited. His mood is "I'm okay." Affect is less anxious, a little bit more irritable, slightly depressed. ASSESSMENT: The patient continues to be paranoid and delusional, although there has been a slight improvement in his mood. Unfortunately, he continues to be anxious because he continues to fear people harming him wherever he goes, although he has admitted that he feels safer at the inpatient mental health unit, and he is aware that the staff has been nice to him. He reports that occasionally he gets upset with some of his peers, but it goes away. MANAGEMENT PLAN: Will continue on current medications and will continue to wait for a bed to become available either at [facility] or [facility]. Time spent 25 minutes.
--- NOTE | 2017-04-02 14:15 | MHIPNPDOC ---
[facility] Progress Note Progress Note DATE OF SERVICE: 04/02/17 INTERVAL HISTORY: Medication Side effects: Denies medication side effects Behavior: He has not been violent or aggressive. Hasn't been respectful to staff and peers, although he continues to be isolated to his room but he comes out more frequently and has been seen pacing the hallways. Group Attendance: He has been attending groups regularly Psychiatric Symptom change: He is less guarded, less depressed but continues to be paranoid and to talk about people willing to harm him in [place]. VITAL SIGNS: See below. NEW TEST RESULTS: See below CURRENT MEDICATIONS: See below. MENTAL STATUS EXAMINATION: General: Alert, cooperative with interview, talkative, pleasant Speech: Normal, he is not tangential and he is not circumstantial. Thought processes: Slightly disorganized, much less than before. Thought content: Paranoid, persecutory delusions are still present but with less frequency and intensity. He denies suicidal ideation and homicidal ideation and denies auditory and visual hallucinations. He has not been responding to internal stimuli but he continues to talk about people coming into visiting hours at the inpatient mental health unit who he knows are related to people that have been wanting to hurt him all along. Abstract reasoning, and computation: Fair Description of associations: Not loose Description of abnormal or psychotic thoughts: Delusional, paranoid and persecutory type. Judgment: Poor Insight: Poor Orientation: Oriented to place and person only Recent and remote memory: He has problems with memory or recollection especially from his distant past probably secondary to cognitive impairment caused by schizophrenia. Attention span and concentration: Fair Fund of knowledge: Fair Mood: "I'm excited about going to [facility]" Affect: Brighter, mood congruent, less constricted, less irritable DIAGNOSES: 1. Paranoid schizophrenia. 2. Major depressive disorder. ASSESSMENT: Patient is less depressed, he comes out of his room more frequently , he has been taking care of his hygiene and grooming, he doesn't spend long hours in a semi- position in his bed as he used to, although he still remains for hours in his room but is hopeful because he is being transferred to [facility] most likely next week and this gives him an opportunity to look at the future with optimist. He has mentioned that he will be very happy if he could be able to go back to work. Hopefully he will be able to do that in the future when his symptoms improve. MANAGEMENT PLAN: Medications: Clozaril 75 mg by mouth daily will be increased to 100 mg tomorrow , previous CBC with differential lab results. Remeron, 45 mg by mouth daily at bedtime for sleep, Abilify 20 mg by mouth twice a day, Haldol Decanoate 50 mg IM every 2 weeks, venlafaxine 150 mg by mouth twice a day for depression and anxiety, gabapentin 300 mg by mouth daily at bedtime and 600 mg by mouth twice a day. Psychotherapy: He has been attending groups regularly. Social: Has been more interactive staff members Misc: -- Disposition: He needs to continue at the inpatient mental health unit, while his transferred for long-term treatment facility, that seems to be [facility] TIME SPENT: 30 minutes. Vital Signs Vital Signs Date Time Temp Pulse Resp B/P (MAP) Pulse Ox O2 Delivery O2 Flow Rate FiO2 04/01/17 18:34 98.2 90 16 122/69 (86) Current Medications Current Medications Acetaminophen (Tylenol Tab) 650 mg Q6HP PRN PO HEADACHE or DISCOMFORT Last administered on 03/27/17 19:37; Start 02/03/17 at 15:45; Stop 04/04/17 at 15:44 Acetaminophen (Tylenol Tab) 650 mg Q6HP PRN PO HEADACHE or DISCOMFORT; Start at 19:15; Stop 04/04/17 at 19:14; Status Cancel Al Hydrox/Mg Hydrox/Simethicone (Mylanta) 30 ml Q4HP PRN PO HEARTBURN/ INDIGESTION; Start 02/03/17 at 15:45; Stop 03/05/17 at 15:44; Status DC Al Hydrox/Mg Hydrox/Simethicone (Mylanta) 30 ml Q4HP PRN PO HEARTBURN/ INDIGESTION Last administered on 04/01/17t 22:41; Start 03/05/17 at 19:30; Stop 04/04/17 at 19:29 Al Hydrox/Mg Hydrox/Simethicone (Mylanta) 30 ml Q4HP PRN PO HEARTBURN/ INDIGESTION; Start 03/06/17 at 10:00; Stop 04/04/17 at 09:59; Status Cancel Aripiprazole (AbiLIFY) 2.5 mg QHS PO Last administered on 02/16/17 20:07; Start 02/07/17 at 21:00; Stop 02/17/17 at 12:25; Status DC Aripiprazole (AbiLIFY) 5 mg QHS PO Last administered on 02/23/17 21:06; Start 02/17/17 at 21:00; Stop 02/24/17 at 17:48; Status DC Aripiprazole (AbiLIFY) 7.5 mg BID PO Last administered on 02/25/17 08:02; Start 02/24/17 at 21:00; Stop 02/25/17 at 11:54; Status DC Aripiprazole (AbiLIFY) 10 mg BID PO Last administered on 03/21/17 08:19; Start 03/18/17 at 21:00; Stop 03/21/17 at 16:03; Status DC Aripiprazole (AbiLIFY) 10 mg BID PO Last administered on 03/03/17 08:14; Start 02/25/17 at 21:00; Stop 03/03/17 at 10:13; Status DC Aripiprazole (AbiLIFY) 15 mg BID PO Last administered on 03/08/17 08:08; Start 03/03/17 at 21:00; Stop 03/08/17 at 08:14; Status DC Aripiprazole (AbiLIFY) 15 mg BID PO ; Start 03/08/17 at 09:00; Stop 04/02/17 at 20:59; Status Cancel Aripiprazole (AbiLIFY) 15 mg BID PO Last administered on 03/10/17 08:03; Start 03/08/17 at 21:00; Stop 03/10/17 at 15:14; Status DC Aripiprazole (AbiLIFY) 15 mg BID PO Last administered on 03/18/17 08:37; Start 03/14/17 at 21:00; Stop 03/18/17 at 12:15; Status DC Aripiprazole (AbiLIFY) 15 mg BID PO Last administered on 03/25/17 08:05; Start 03/21/17 at 21:00; Stop 03/25/17 at 16:17; Status DC Aripiprazole (AbiLIFY) 20 mg BID PO Last administered on 03/14/17 08:05; Start 03/10/17 at 21:00; Stop 03/14/17 at 14:42; Status DC Aripiprazole (AbiLIFY) 20 mg BID PO Last administered on 04/02/17 07:58; Start 03/25/17 at 21:00; Stop 04/24/17 at 20:59 Benztropine Mesylate (Cogentin) 0.5 mg BID PO Last administered on 02/23/17 08: 43; Start 02/04/17 at 09:00; Stop 02/23/17 at 13:41; Status DC Benztropine Mesylate (Cogentin) 1 mg BID PO Last administered on 03/14/17 08: 05; Start 02/23/17 at 09:00; Stop 03/14/17 at 16:09; Status DC Benztropine Mesylate (Cogentin) 1 mg TID PO Last administered on 03/24/17 20:11 ; Start 03/14/17 at 21:00; Stop 03/25/17 at 08:59; Status DC Buspirone HCl (Buspar) 7.5 mg TID PO Last administered on 02/26/17 08:04; Start 02/04/17 at 16:00; Stop 02/26/17 at 12:48; Status DC Clozapine (Clozaril) 25 mg QHS PO Last administered on 03/20/17 21:41; Start at 21:00; Stop 03/21/17 at 08:59; Status DC Clozapine (Clozaril) 50 mg QAM PO Last administered on 03/18/17 08:37; Start 03/14/17 at 09:00; Stop 03/18/17 at 21:20; Status DC Clozapine (Clozaril) 50 mg QHS PO Last administered on 03/25/17 22:42; Start at 21:00; Stop 03/27/17 at 13:55; Status DC Clozapine (Clozaril) 75 mg QHS PO Last administered on 04/01/17 19:56; Start 03/27/17 at 21:00; Stop 04/03/17 at 20:59 Docusate Sodium (Colace) 100 mg BID PO Last administered on 04/02/17 07:58; Start 02/03/17 at 21:00; Stop 04/04/17 at 20:59 Gabapentin (Neurontin) 100 mg QAM PO Last administered on 02/24/17 08:14; Start 02/04/17 at 09:00; Stop 02/24/17 at 17:59; Status DC Gabapentin (Neurontin) 200 mg QAM PO Last administered on 03/19/17 08:04; Start 02/25/17 at 09:00; Stop 03/19/17 at 11:00; Status DC Gabapentin (Neurontin) 300 mg QHS PO Last administered on 04/01/17 19:56; Start 03/21/17 at 21:00; Stop 04/20/17 at 20:59 Gabapentin (Neurontin) 300 mg TID PO ; Start 03/21/17 at 21:00; Stop 03/21/17 at 21:00; Status DC Gabapentin (Neurontin) 400 mg QHS PO Last administered on 03/18/17 20:56; Start 02/04/17 at 21:00; Stop 03/19/17 at 11:00; Status DC Gabapentin (Neurontin) 600 mg BID@0900,1600 PO Last administered on 04/02/17 07:59; Start 03/21/17 at 16:00; Stop 04/20/17 at 15:59 Haloperidol Decanoate (Haldol Decanoate) 50 mg Q14D STAT IM ; Start 02/18/17 at 20:24; Stop 02/18/17 at 20:25; Status Cancel Haloperidol Decanoate (Haldol Decanoate) 50 mg Q14D@0900 IM Last administered on 04/01/17 10:33; Start 03/18/17 at 09:00; Stop 04/17/17 at 08:59 Haloperidol Decanoate (Haldol Decanoate) 50 mg Q14D@14 IM Last administered on 03/04/17 13:27; Start 02/04/17 at 14:00; Stop 03/06/17 at 13:59; Status DC Home Med (Med Rec Complete!) ASDIRECTED XX ; Start 02/03/17 at 12:15; Stop at 12:15; Status DC Lorazepam (Ativan) 1 mg Q8HP PRN PO ANXIETY/AGITATION Last administered on 20:52; Start 02/03/17 at 15:45; Stop 02/26/17 at 12:48; Status DC Lorazepam (Ativan) 1 mg TID PO Last administered on 03/19/17 08:04; Start 08/05 at 16:00; Stop 03/19/17 at 11:02; Status DC Lorazepam (Ativan) 1 mg TID PO Last administered on 03/26/17 08:06; Start at 21:00; Stop 03/26/17 at 11:14; Status DC Lorazepam (Ativan) 1 mg TID PRN PO Anxiety Last administered on 03/19/17 16:11 ; Start 03/19/17 at 11:15; Stop 03/21/17 at 16:07; Status DC Magnesium Hydroxide (Milk Of Magnesia) 30 ml DAILYPRN PRN PO CONSTIPATION; Start 02/03/17 at 15:45; Stop 03/05/17 at 15:44; Status DC Magnesium Hydroxide (Milk Of Magnesia) 30 ml DAILYPRN PRN PO CONSTIPATION Last administered on 03/24/17 15:50; Start 03/05/17 at 19:15; Stop 04/04/17 at 19:14 Mirtazapine (Remeron) 15 mg QHS PO Last administered on 02/27/17 21:37; Start 02/04/17 at 21:00; Stop 02/28/17 at 09:19; Status DC Mirtazapine (Remeron) 30 mg QHS PO Last administered on 03/18/17 20:56; Start 02/28/17 at 21:00; Stop 03/19/17 at 11:02; Status DC Mirtazapine (Remeron) 30 mg QHS PRN PO Insomnia; Start 03/19/17 at 11:15; Stop 03/21/17 at 16:05; Status DC Mirtazapine (Remeron) 45 mg QHSP PRN PO Insomnia; Start 03/21/17 at 16:15; Stop 04/20/17 at 16:14 Miscellaneous (Unresolved Clarification Entry) SEE LABEL COMMENTS UNRESOLVED XX ; Start 03/07/17 at 00:01; Stop 03/10/17 at 15:08; Status DC Nicotine (Nicoderm Cq 21mg) 1 patch DAILY TD Last administered on 04/02/17 07: 58; Start 02/04/17 at 09:00; Stop 04/04/17 at 08:59 Olanzapine (ZyPREXA) 10 mg DAILY PO Last administered on 02/04/17 08:59; Start 02/03/17 at 09:00; Stop 02/04/17 at 14:20; Status DC Quetiapine Fumarate (SEROquel) 200 mg QHS PO ; Start 02/04/17 at 21:00; Stop at 13:42; Status DC Trazodone HCl (Desyrel) 50 mg QHSP PRN PO INSOMNIA; Start 02/03/17 at 16:45; Stop 03/05/17 at 16:44; Status Cancel Trazodone HCl (Desyrel) 50 mg QHSP PRN PO INSOMNIA Last administered on 21:49; Start 02/28/17 at 12:45; Stop 03/10/17 at 15:11; Status DC Venlafaxine HCl (Effexor Xr) 75 mg DAILY PO Last administered on 02/06/17 08:28; Start 02/04/17 at 09:00; Stop 02/06/17 at 18:02; Status DC Venlafaxine HCl (Effexor Xr) 150 mg BID PO Last administered on 04/02/17 07:58; Start 03/07/17 at 09:00; Stop 04/06/17 at 08:59 Venlafaxine HCl (Effexor Xr) 150 mg QHS PO Last administered on 02/23/17 21 :05; Start 02/07/17 at 21:00; Stop 02/24/17 at 17:59; Status DC Venlafaxine HCl (Effexor) 150 mg BID PO Last administered on 03/06/17 20:04; Start 02/24/17 at 21:00; Stop 03/06/17 at 23:26; Status DC Allergies Coded Allergies: Loxapine (Verified Allergy, Mild, 01/21/13) Thiothixene (Verified Allergy, Mild, 01/21/13) Fluphenazine (Verified Allergy, Unknown, 09/12/15) UNKNOWN [place] (Verified Allergy, Unknown, UNKNOWN, 09/12/15) Meperidine (Verified Allergy, Unknown, UNKNOWN, 09/12/15) Phenothiazines (Verified Allergy, Unknown, UNKNOWN, 09/12/15) Thioridazine (Verified Allergy, Unknown, UNKNOWN, 09/12/15) KELVIN GARIBAY MD Apr 02, 2017 14:15
[2017-04-02 14:48] LABS: BASO # 0.1 K/mm3 (0.0-0.2); EOS # 0.5 K/mm3 (0.0-0.50); EOS % 5.6 % (0.0-3.0); LARGE UNSTAINED CELL # 0.3 K/mm3 (0.0-0.4); LARGE UNSTAINED CELL % 3.7 % (0.0-4.0); LYMPH # 2.5 K/mm3 (1.5-4.5); LYMPH % 27.6 % (24.0-44.0); MEAN CORPUSCULAR HEMOGLOBIN 31.5 pg (27.0-33.0); MEAN CORPUSCULAR HGB CONC 34.9 g/dl (32.0-36.5); MEAN CORPUSCULAR VOLUME 90.3 fl (80.0-96.0); MONO # 0.7 K/mm3 (0.0-0.8); MONO % 8.1 % (0.0-5.0); NEUTROPHILS # 4.9 K/mm3 (1.8-7.7); NEUTROPHILS % 53.9 % (36.0-66.0); PLATELET COUNT, AUTOMATED 225 k/mm3 (150-450); RED CELL DISTRIBUTION WIDTH 12.8 % (11.5-14.5); WHITE BLOOD COUNT 9.1 K/mm3 (4.0-10.0)
[2017-04-02 18:22] VITALS: BP 131/71
[2017-04-02] MEDS: cloZAPine 25 MG TAB (S0136) PO SCH (21:19)
[2017-04-03] MEDS: NICOTINE 21MG/24HR 1 EA TRANSDERMAL TD SCH (08:16)
[2017-04-03] MEDS: VENLAFAXINE **XR** 75MG CAPSULE PO SCH ×2 (08:16→21:16)
[2017-04-03] MEDS: GABAPENTIN 300 MG CAP PO SCH ×3 (08:17→21:16)
[2017-04-03] MEDS: ARIPiprazole 10 MG TAB PO SCH ×2 (08:17→21:16)
[2017-04-03] MEDS: DOCUSATE SODIUM 100 MG CAP PO SCH ×2 (08:17→21:16)
--- NOTE | 2017-04-03 09:38 | MHIPNPDOC ---
[facility] Progress Note Progress Note DATE OF SERVICE: 04/03/17 INTERVAL HISTORY: Medication Side effects: Denies medication side effects Behavior: He is being cooperative with staff members, less isolated to his room , but he still guarded and paranoid although he has not been aggressive or violent Group Attendance: Accidents most of the groups and participates in most of them Psychiatric Symptom change: He is less depressed, hopeful about going home and, less irritable during morning hours compared to the afternoon. He continues to be paranoid and suspicious but he has denied consistently to have auditory and visual hallucinations, however he continues to complain that people have stolen things from his bedroom and that some unknown people coming into his room to take his things from him. VITAL SIGNS: See below. NEW TEST RESULTS: See below CURRENT MEDICATIONS: See below. MENTAL STATUS EXAMINATION: General: Alert, less guarded, less suspicious, more engaged, with good hygiene, dressed appropriately, fair eye contact. Speech: Soft spoken, articulate, less tangential. Thought processes: Irrational and disorganized at times. Thought content: Is focused on his transfer to [facility], is hopeful and he really would like to get a job in the near future. Abstract reasoning, and computation: Poor Description of associations: Not loose Description of abnormal or psychotic thoughts: Delusions, paranoid and persecutory type Judgment: Poor Insight: Poor Orientation: Oriented to place and person only Recent and remote memory: Poor due to cognitive impairment caused by chronic mental illness Attention span and concentration: Little bit improved Fund of knowledge: Unable to assess Mood: "I'm excited about going to [facility]" Affect: Continues to be constricted, but less than before. DIAGNOSES: 1. Paranoid schizophrenia. 2. Major depressive disorder. 3. . ASSESSMENT: Patient has improved but needs long-term treatment so that he can live a functional life. He will like to go back to work and be a productive human being. It will be great if after being discharged from [facility] he could go to the [facility] and the received training to do some type of job that would be appropriate for him. Tonight she will be receiving 100 mg of Clozaril. MANAGEMENT PLAN: Medications: Will continue the same treatment plan Psychotherapy: Will encourage him to attend all groups Social: Will Will encourage him to look at social interactions as rewarding, to consider the importance of having social supports that can only be obtained through friends and relatives. Unfortunately he continues to referred that he doesn't know or his relatives are, so he doesn't have family support. [facility] -- Disposition: Patient will be transferred to [facility], probably next week. He needs to continue hospitalization until he becomes less paranoid and able to function. TIME SPENT: 25 minutes. Vital Signs Vital Signs Date Time Temp Pulse Resp B/P (MAP) Pulse Ox O2 Delivery O2 Flow Rate FiO2 04/02/17 18:22 97.6 100 16 131/71 (91) Laboratory Data 24H Labs Laboratory Tests 2 04/02/17 14:31: White Blood Count 9.1, Red Blood Count 4.61, Hemoglobin 14.5, Hematocrit 41.7L, Mean Corpuscular Volume 90.3, Mean Corpuscular Hemoglobin 31.5, Mean Corpuscular Hemoglobin Concent 34.9, Red Cell Distribution Width 12.8, Platelet Count 225, Neutrophils (%) (Auto) 53.9, Lymphocytes (%) (Auto) 27.6, Monocytes ( %) (Auto) 8.1H, Eosinophils (%) (Auto) 5.6H, Basophils (%) (Auto) 1.0, Neutrophils # (Auto) 4.9, Lymphocytes # (Auto) 2.5, Monocytes # (Auto) 0.7, Eosinophils # (Auto) 0.5, Basophils # (Auto) 0.1, Large Unclassified Cells % 3.7 , Large Unclassified Cells # 0.3 CBC/BMP Laboratory Tests 04/02/17 14:31 Red Blood Count 4.61, Mean Corpuscular Volume 90.3, Mean Corpuscular Hemoglobin 31.5, Mean Corpuscular Hemoglobin Concent 34.9, Red Cell Distribution Width 12.8 , Neutrophils (%) (Auto) 53.9, Lymphocytes (%) (Auto) 27.6, Monocytes (%) (Auto ) 8.1 H, Eosinophils (%) (Auto) 5.6 H, Basophils (%) (Auto) 1.0, Neutrophils # ( Auto) 4.9, Lymphocytes # (Auto) 2.5, Monocytes # (Auto) 0.7, Eosinophils # (Auto ) 0.5, Basophils # (Auto) 0.1 Current Medications Current Medications Acetaminophen (Tylenol Tab) 650 mg Q6HP PRN PO HEADACHE or DISCOMFORT Last administered on 03/27/17 19:37; Start 02/03/17 at 15:45; Stop 04/04/17 at 15:44 Acetaminophen (Tylenol Tab) 650 mg Q6HP PRN PO HEADACHE or DISCOMFORT; Start at 19:15; Stop 04/04/17 at 19:14; Status Cancel Al Hydrox/Mg Hydrox/Simethicone (Mylanta) 30 ml Q4HP PRN PO HEARTBURN/ INDIGESTION; Start 02/03/17 at 15:45; Stop 03/05/17 at 15:44; Status DC Al Hydrox/Mg Hydrox/Simethicone (Mylanta) 30 ml Q4HP PRN PO HEARTBURN/ INDIGESTION Last administered on 04/01/17 22:41; Start 03/05/17 at 19:30; Stop 04/04/17 at 19:29 Al Hydrox/Mg Hydrox/Simethicone (Mylanta) 30 ml Q4HP PRN PO HEARTBURN/ INDIGESTION; Start 03/06/17 at 10:00; Stop 04/04/17 at 09:59; Status Cancel Aripiprazole (AbiLIFY) 2.5 mg QHS PO Last administered on 02/16/17 20:07; Start 02/07/17 at 21:00; Stop 02/17/17 at 12:25; Status DC Aripiprazole (AbiLIFY) 5 mg QHS PO Last administered on 02/23/17 21:06; Start 02/17/17 at 21:00; Stop 02/24/17 at 17:48; Status DC Aripiprazole (AbiLIFY) 7.5 mg BID PO Last administered on 02/25/17 08:02; Start 02/24/17 at 21:00; Stop 02/25/17 at 11:54; Status DC Aripiprazole (AbiLIFY) 10 mg BID PO Last administered on 03/21/17 08:19; Start 03/18/17 at 21:00; Stop 03/21/17 at 16:03; Status DC Aripiprazole (AbiLIFY) 10 mg BID PO Last administered on 03/03/17 08:14; Start 02/25/17 at 21:00; Stop 03/03/17 at 10:13; Status DC Aripiprazole (AbiLIFY) 15 mg BID PO Last administered on 03/08/17 08:08; Start 03/03/17 at 21:00; Stop 03/08/17 at 08:14; Status DC Aripiprazole (AbiLIFY) 15 mg BID PO ; Start 03/08/17 at 09:00; Stop 04/02/17 at 20:59; Status Cancel Aripiprazole (AbiLIFY) 15 mg BID PO Last administered on 03/10/17 08:03; Start 03/08/17 at 21:00; Stop 03/10/17 at 15:14; Status DC Aripiprazole (AbiLIFY) 15 mg BID PO Last administered on 03/18/17 08:37; Start 03/14/17 at 21:00; Stop 03/18/17 at 12:15; Status DC Aripiprazole (AbiLIFY) 15 mg BID PO Last administered on 03/25/17 08:05; Start 03/21/17 at 21:00; Stop 03/25/17 at 16:17; Status DC Aripiprazole (AbiLIFY) 20 mg BID PO Last administered on 03/14/17 08:05; Start 03/10/17 at 21:00; Stop 03/14/17 at 14:42; Status DC Aripiprazole (AbiLIFY) 20 mg BID PO Last administered on 04/03/17 08:17; Start 03/25/17 at 21:00; Stop 04/24/17 at 20:59 Benztropine Mesylate (Cogentin) 0.5 mg BID PO Last administered on 02/23/17 08: 43; Start 02/04/17 at 09:00; Stop 02/23/17 at 13:41; Status DC Benztropine Mesylate (Cogentin) 1 mg BID PO Last administered on 03/14/17 08: 05; Start 02/23/17 at 09:00; Stop 03/14/17 at 16:09; Status DC Benztropine Mesylate (Cogentin) 1 mg TID PO Last administered on 03/24/17 20:11 ; Start 03/14/17 at 21:00; Stop 03/25/17 at 08:59; Status DC Buspirone HCl (Buspar) 7.5 mg TID PO Last administered on 02/26/17 08:04; Start 02/04/17 at 16:00; Stop 02/26/17 at 12:48; Status DC Clozapine (Clozaril) 25 mg QHS PO Last administered on 03/20/17 21:41; Start at 21:00; Stop 03/21/17 at 08:59; Status DC Clozapine (Clozaril) 50 mg QAM PO Last administered on 03/18/17 08:37; Start 03/14/17 at 09:00; Stop 03/18/17 at 21:20; Status DC Clozapine (Clozaril) 50 mg QHS PO Last administered on 03/25/17 22:42; Start at 21:00; Stop 03/27/17 at 13:55; Status DC Clozapine (Clozaril) 75 mg QHS PO Last administered on 04/02/17 21:19; Start 03/27/17 at 21:00; Stop 04/09/17 at 20:59 Clozapine (Clozaril) 100 mg QHS PO ; Start 04/03/17 at 21:00; Stop 04/10/17 at 21:00 Docusate Sodium (Colace) 100 mg BID PO Last administered on 04/03/17 08:17; Start 02/03/17 at 21:00; Stop 04/04/17 at 20:59 Gabapentin (Neurontin) 100 mg QAM PO Last administered on 02/24/17 08:14; Start 02/04/17 at 09:00; Stop 02/24/17 at 17:59; Status DC Gabapentin (Neurontin) 200 mg QAM PO Last administered on 03/19/17 08:04; Start 02/25/17 at 09:00; Stop 03/19/17 at 11:00; Status DC Gabapentin (Neurontin) 300 mg QHS PO Last administered on 04/02/17 21:19; Start 03/21/17 at 21:00; Stop 04/20/17 at 20:59 Gabapentin (Neurontin) 300 mg TID PO ; Start 03/21/17 at 21:00; Stop 03/21/17 at 21:00; Status DC Gabapentin (Neurontin) 400 mg QHS PO Last administered on 03/18/17 20:56; Start 02/04/17 at 21:00; Stop 03/19/17 at 11:00; Status DC Gabapentin (Neurontin) 600 mg BID@0900,1600 PO Last administered on 04/03/17 08:17; Start 03/21/17 at 16:00; Stop 04/20/17 at 15:59 Haloperidol Decanoate (Haldol Decanoate) 50 mg Q14D STAT IM ; Start 02/18/17 at 20:24; Stop 02/18/17 at 20:25; Status Cancel Haloperidol Decanoate (Haldol Decanoate) 50 mg Q14D@0900 IM Last administered on 04/01/17 10:33; Start 03/18/17 at 09:00; Stop 04/17/17 at 08:59 Haloperidol Decanoate (Haldol Decanoate) 50 mg Q14D@14 IM Last administered on 03/04/17 13:27; Start 02/04/17 at 14:00; Stop 03/06/17 at 13:59; Status DC Home Med (Med Rec Complete!) ASDIRECTED XX ; Start 02/03/17 at 12:15; Stop at 12:15; Status DC Lorazepam (Ativan) 1 mg Q8HP PRN PO ANXIETY/AGITATION Last administered on 20:52; Start 02/03/17 at 15:45; Stop 02/26/17 at 12:48; Status DC Lorazepam (Ativan) 1 mg TID PO Last administered on 03/19/17 08:04; Start 08/05 at 16:00; Stop 03/19/17 at 11:02; Status DC Lorazepam (Ativan) 1 mg TID PO Last administered on 03/26/17 08:06; Start at 21:00; Stop 03/26/17 at 11:14; Status DC Lorazepam (Ativan) 1 mg TID PRN PO Anxiety Last administered on 03/19/17 16:11 ; Start 03/19/17 at 11:15; Stop 03/21/17 at 16:07; Status DC Magnesium Hydroxide (Milk Of Magnesia) 30 ml DAILYPRN PRN PO CONSTIPATION; Start 02/03/17 at 15:45; Stop 03/05/17 at 15:44; Status DC Magnesium Hydroxide (Milk Of Magnesia) 30 ml DAILYPRN PRN PO CONSTIPATION Last administered on 03/24/17 15:50; Start 03/05/17 at 19:15; Stop 04/04/17 at 19:14 Mirtazapine (Remeron) 15 mg QHS PO Last administered on 02/27/17 21:37; Start 02/04/17 at 21:00; Stop 02/28/17 at 09:19; Status DC Mirtazapine (Remeron) 30 mg QHS PO Last administered on 03/18/17 20:56; Start 02/28/17 at 21:00; Stop 03/19/17 at 11:02; Status DC Mirtazapine (Remeron) 30 mg QHS PRN PO Insomnia; Start 03/19/17 at 11:15; Stop 03/21/17 at 16:05; Status DC Mirtazapine (Remeron) 45 mg QHSP PRN PO Insomnia; Start 03/21/17 at 16:15; Stop 04/20/17 at 16:14 Miscellaneous (Unresolved Clarification Entry) SEE LABEL COMMENTS UNRESOLVED XX ; Start 03/07/17 at 00:01; Stop 03/10/17 at 15:08; Status DC Nicotine (Nicoderm Cq 21mg) 1 patch DAILY TD Last administered on 04/03/17 08: 16; Start 02/04/17 at 09:00; Stop 04/04/17 at 08:59 Olanzapine (ZyPREXA) 10 mg DAILY PO Last administered on 02/04/17 08:59; Start 02/03/17 at 09:00; Stop 02/04/17 at 14:20; Status DC Quetiapine Fumarate (SEROquel) 200 mg QHS PO ; Start 02/04/17 at 21:00; Stop at 13:42; Status DC Trazodone HCl (Desyrel) 50 mg QHSP PRN PO INSOMNIA; Start 02/03/17 at 16:45; Stop 03/05/17 at 16:44; Status Cancel Trazodone HCl (Desyrel) 50 mg QHSP PRN PO INSOMNIA Last administered on 21:49; Start 02/28/17 at 12:45; Stop 03/10/17 at 15:11; Status DC Venlafaxine HCl (Effexor Xr) 75 mg DAILY PO Last administered on 02/06/17 08:28; Start 02/04/17 at 09:00; Stop 02/06/17 at 18:02; Status DC Venlafaxine HCl (Effexor Xr) 150 mg BID PO Last administered on 04/03/17 08:16; Start 03/07/17 at 09:00; Stop 04/06/17 at 08:59 Venlafaxine HCl (Effexor Xr) 150 mg QHS PO Last administered on 02/23/17 21 :05; Start 02/07/17 at 21:00; Stop 02/24/17 at 17:59; Status DC Venlafaxine HCl (Effexor) 150 mg BID PO Last administered on 03/06/17 20:04; Start 02/24/17 at 21:00; Stop 03/06/17 at 23:26; Status DC Allergies Coded Allergies: Loxapine (Verified Allergy, Mild, 01/21/13) Thiothixene (Verified Allergy, Mild, 01/21/13) Fluphenazine (Verified Allergy, Unknown, 09/12/15) UNKNOWN [place] (Verified Allergy, Unknown, UNKNOWN, 09/12/15) Meperidine (Verified Allergy, Unknown, UNKNOWN, 09/12/15) Phenothiazines (Verified Allergy, Unknown, UNKNOWN, 09/12/15) Thioridazine (Verified Allergy, Unknown, UNKNOWN, 09/12/15) KELVIN GARIBAY MD Apr 03, 2017 09:38
[2017-04-03] MEDS: cloZAPine 25 MG TAB (S0136) PO SCH (21:16)
[2017-04-03] MEDS: cloZAPine 100 MG TAB (S0136) PO SCH (21:16)
[2017-04-04] MEDS: GABAPENTIN 300 MG CAP PO SCH ×3 (08:23→20:27)
[2017-04-04] MEDS: VENLAFAXINE **XR** 75MG CAPSULE PO SCH ×2 (08:23→20:27)
[2017-04-04] MEDS: ARIPiprazole 10 MG TAB PO SCH ×2 (08:23→20:27)
[2017-04-04] MEDS: NICOTINE 21MG/24HR 1 EA TRANSDERMAL TD SCH (08:24)
[2017-04-04] MEDS: DOCUSATE SODIUM 100 MG CAP PO SCH ×2 (08:25→20:25)
[2017-04-04] MEDS ORDERED: IBUPROFEN 800 MG TAB PO ONE (17:00)
[2017-04-04 18:00] VITALS: BP 120/60
[2017-04-04] MEDS: cloZAPine 25 MG TAB (S0136) PO SCH (20:27)
[2017-04-04] MEDS: cloZAPine 100 MG TAB (S0136) PO SCH (20:28)
--- NOTE | 2017-04-04 22:02 | MHIPNPDOC ---
[facility] Progress Note Progress Note DATE OF SERVICE: 04/04/17 HISTORY: 52 year old of Paranoid Schizophrenia and Major Depression who was admitted on February 03 and is pending to be [facility] to [place] [facility] who has a long standing history of multiple hospitalizations who has been in treatment with Gabapentin, Haldol Decanoate, Clozaril, Abilify VITAL SIGNS: See below. NEW TEST RESULTS: Recent CBC with differential is within normal limits. CURRENT MEDICATIONS: See below. MENTAL STATUS EXAMINATION: Patient is a 52-year old male, who is alert, cooperative, pleasant, with poor eye contact, good hygiene, casually and properly dressed. Speech: Is Not circumstantial, not tangential today. Language skills are fair. Thought processes including: Irrational. Thought content: Paranoid and persecutory delusions. Abstract reasoning, and computation: Limited Description of associations: Not loose. Description of abnormal or psychotic thoughts: Delusional thoughts, paranoid and persecutory type.Denies homicidal and suicidal ideation, denies auditory and visual hallucinations. Judgment: Limited Insight: Limited Orientation: Oriented x 3. Recent and remote memory: Poor. Attention span and concentration: Limited Language: Normal. Fund of knowledge: Limited Mood: Euthymic. Affect: Guarded and constricted but less than before. DIAGNOSES: 1. Paranoid schizophrenia. 2. Major Depressive Disorder. 3. . ASSESSMENT:Patient is less depressed and knowing that he is being transferred to [place], gives him hope, at least to move into a different setting because he is bored of being at the [facility], where he has been for two months. He continues to be delusional, but hasnt been aggressive or violent. He is less isolated and comes out of his room more frequently, although he continues to be guarded. MANAGEMENT PLAN: Will continue with current medications and providing him with supportive psychotherapy, group and individual psychotherapy.Will be transferred next week to [place]. TIME SPENT: 25 minutes. Vital Signs Vital Signs Date Time Temp Pulse Resp B/P (MAP) Pulse Ox O2 Delivery O2 Flow Rate FiO2 04/04/17 18:00 99.0 90 16 120/60 (80) Current Medications Current Medications Acetaminophen (Tylenol Tab) 650 mg Q6HP PRN PO HEADACHE or DISCOMFORT Last administered on 03/27/17t 19:37; Start 02/03/17 at 15:45; Stop 05/03/17 at 15:44 Acetaminophen (Tylenol Tab) 650 mg Q6HP PRN PO HEADACHE or DISCOMFORT; Start at 19:15; Stop 04/04/17 at 19:14; Status Cancel Al Hydrox/Mg Hydrox/Simethicone (Mylanta) 30 ml Q4HP PRN PO HEARTBURN/ INDIGESTION; Start 02/03/17 at 15:45; Stop 03/05/17 at 15:44; Status DC Al Hydrox/Mg Hydrox/Simethicone (Mylanta) 30 ml Q4HP PRN PO HEARTBURN/ INDIGESTION Last administered on 04/01/17 22:41; Start 03/05/17 at 19:30; Stop 05/03/17 at 19:29 Al Hydrox/Mg Hydrox/Simethicone (Mylanta) 30 ml Q4HP PRN PO HEARTBURN/ INDIGESTION; Start 03/06/17 at 10:00; Stop 04/04/17 at 09:59; Status Cancel Aripiprazole (AbiLIFY) 2.5 mg QHS PO Last administered on 02/16/17 20:07; Start 02/07/17 at 21:00; Stop 02/17/17 at 12:25; Status DC Aripiprazole (AbiLIFY) 5 mg QHS PO Last administered on 02/23/17 21:06; Start 02/17/17 at 21:00; Stop 02/24/17 at 17:48; Status DC Aripiprazole (AbiLIFY) 7.5 mg BID PO Last administered on 02/25/17 08:02; Start 02/24/17 at 21:00; Stop 02/25/17 at 11:54; Status DC Aripiprazole (AbiLIFY) 10 mg BID PO Last administered on 03/21/17 08:19; Start 03/18/17 at 21:00; Stop 03/21/17 at 16:03; Status DC Aripiprazole (AbiLIFY) 10 mg BID PO Last administered on 03/03/17 08:14; Start 02/25/17 at 21:00; Stop 03/03/17 at 10:13; Status DC Aripiprazole (AbiLIFY) 15 mg BID PO Last administered on 03/08/17 08:08; Start 03/03/17 at 21:00; Stop 03/08/17 at 08:14; Status DC Aripiprazole (AbiLIFY) 15 mg BID PO ; Start 03/08/17 at 09:00; Stop 04/02/17 at 20:59; Status Cancel Aripiprazole (AbiLIFY) 15 mg BID PO Last administered on 03/10/17 08:03; Start 03/08/17 at 21:00; Stop 03/10/17 at 15:14; Status DC Aripiprazole (AbiLIFY) 15 mg BID PO Last administered on 03/18/17 08:37; Start 03/14/17 at 21:00; Stop 03/18/17 at 12:15; Status DC Aripiprazole (AbiLIFY) 15 mg BID PO Last administered on 03/25/17 08:05; Start 03/21/17 at 21:00; Stop 03/25/17 at 16:17; Status DC Aripiprazole (AbiLIFY) 20 mg BID PO Last administered on 03/14/17 08:05; Start 03/10/17 at 21:00; Stop 03/14/17 at 14:42; Status DC Aripiprazole (AbiLIFY) 20 mg BID PO Last administered on 04/04/17 20:27; Start 03/25/17 at 21:00; Stop 04/24/17 at 20:59 Benztropine Mesylate (Cogentin) 0.5 mg BID PO Last administered on 02/23/17 08: 43; Start 02/04/17 at 09:00; Stop 02/23/17 at 13:41; Status DC Benztropine Mesylate (Cogentin) 1 mg BID PO Last administered on 03/14/17 08: 05; Start 02/23/17 at 09:00; Stop 03/14/17 at 16:09; Status DC Benztropine Mesylate (Cogentin) 1 mg TID PO Last administered on 03/24/17 20:11 ; Start 03/14/17 at 21:00; Stop 03/25/17 at 08:59; Status DC Buspirone HCl (Buspar) 7.5 mg TID PO Last administered on 02/26/17 08:04; Start 02/04/17 at 16:00; Stop 02/26/17 at 12:48; Status DC Clozapine (Clozaril) 25 mg QHS PO Last administered on 03/20/17 21:41; Start at 21:00; Stop 03/21/17 at 08:59; Status DC Clozapine (Clozaril) 50 mg QAM PO Last administered on 03/18/17 08:37; Start 03/14/17 at 09:00; Stop 03/18/17 at 21:20; Status DC Clozapine (Clozaril) 50 mg QHS PO Last administered on 03/25/17 22:42; Start at 21:00; Stop 03/27/17 at 13:55; Status DC Clozapine (Clozaril) 75 mg QHS PO Last administered on 04/04/17 20:27; Start 03/27/17 at 21:00; Stop 04/09/17 at 20:59 Clozapine (Clozaril) 100 mg QHS PO Last administered on 04/04/17 20:28; Start 04/03/17 at 21:00; Stop 04/10/17 at 21:00 Docusate Sodium (Colace) 100 mg BID PO Last administered on 04/03/17 21:16; Start 02/03/17 at 21:00; Stop 05/03/17 at 20:59 Gabapentin (Neurontin) 100 mg QAM PO Last administered on 02/24/17 08:14; Start 02/04/17 at 09:00; Stop 02/24/17 at 17:59; Status DC Gabapentin (Neurontin) 200 mg QAM PO Last administered on 03/19/17 08:04; Start 02/25/17 at 09:00; Stop 03/19/17 at 11:00; Status DC Gabapentin (Neurontin) 300 mg QHS PO Last administered on 04/04/17 20:27; Start 03/21/17 at 21:00; Stop 04/20/17 at 20:59 Gabapentin (Neurontin) 300 mg TID PO ; Start 03/21/17 at 21:00; Stop 03/21/17 at 21:00; Status DC Gabapentin (Neurontin) 400 mg QHS PO Last administered on 03/18/17 20:56; Start 02/04/17 at 21:00; Stop 03/19/17 at 11:00; Status DC Gabapentin (Neurontin) 600 mg BID@0900,1600 PO Last administered on 04/04/17 16:07; Start 03/21/17 at 16:00; Stop 04/20/17 at 15:59 Haloperidol Decanoate (Haldol Decanoate) 50 mg Q14D STAT IM ; Start 02/18/17 at 20:24; Stop 02/18/17 at 20:25; Status Cancel Haloperidol Decanoate (Haldol Decanoate) 50 mg Q14D@0900 IM Last administered on 04/01/17 10:33; Start 03/18/17 at 09:00; Stop 04/17/17 at 08:59 Haloperidol Decanoate (Haldol Decanoate) 50 mg Q14D@14 IM Last administered on 03/04/17 13:27; Start 02/04/17 at 14:00; Stop 03/06/17 at 13:59; Status DC Home Med (Med Rec Complete!) ASDIRECTED XX ; Start 02/03/17 at 12:15; Stop at 12:15; Status DC Lorazepam (Ativan) 1 mg Q8HP PRN PO ANXIETY/AGITATION Last administered on 20:52; Start 02/03/17 at 15:45; Stop 02/26/17 at 12:48; Status DC Lorazepam (Ativan) 1 mg TID PO Last administered on 03/19/17 08:04; Start 08/05 at 16:00; Stop 03/19/17 at 11:02; Status DC Lorazepam (Ativan) 1 mg TID PO Last administered on 03/26/17 08:06; Start at 21:00; Stop 03/26/17 at 11:14; Status DC Lorazepam (Ativan) 1 mg TID PRN PO Anxiety Last administered on 03/19/17 16:11 ; Start 03/19/17 at 11:15; Stop 03/21/17 at 16:07; Status DC Magnesium Hydroxide (Milk Of Magnesia) 30 ml DAILYPRN PRN PO CONSTIPATION; Start 02/03/17 at 15:45; Stop 03/05/17 at 15:44; Status DC Magnesium Hydroxide (Milk Of Magnesia) 30 ml DAILYPRN PRN PO CONSTIPATION Last administered on 03/24/17 15:50; Start 03/05/17 at 19:15; Stop 05/03/17 at 19:14 Mirtazapine (Remeron) 15 mg QHS PO Last administered on 02/27/17 21:37; Start 02/04/17 at 21:00; Stop 02/28/17 at 09:19; Status DC Mirtazapine (Remeron) 30 mg QHS PO Last administered on 03/18/17 20:56; Start 02/28/17 at 21:00; Stop 03/19/17 at 11:02; Status DC Mirtazapine (Remeron) 30 mg QHS PRN PO Insomnia; Start 03/19/17 at 11:15; Stop 03/21/17 at 16:05; Status DC Mirtazapine (Remeron) 45 mg QHSP PRN PO Insomnia; Start 03/21/17 at 16:15; Stop 04/20/17 at 16:14 Miscellaneous (Unresolved Clarification Entry) SEE LABEL COMMENTS UNRESOLVED XX ; Start 03/07/17 at 00:01; Stop 03/10/17 at 15:08; Status DC Nicotine (Nicoderm Cq 21mg) 1 patch DAILY TD Last administered on 04/04/17 08: 24; Start 02/04/17 at 09:00; Stop 05/03/17 at 08:59 Olanzapine (ZyPREXA) 10 mg DAILY PO Last administered on 02/04/17 08:59; Start 02/03/17 at 09:00; Stop 02/04/17 at 14:20; Status DC Quetiapine Fumarate (SEROquel) 200 mg QHS PO ; Start 02/04/17 at 21:00; Stop at 13:42; Status DC Trazodone HCl (Desyrel) 50 mg QHSP PRN PO INSOMNIA; Start 02/03/17 at 16:45; Stop 03/05/17 at 16:44; Status Cancel Trazodone HCl (Desyrel) 50 mg QHSP PRN PO INSOMNIA Last administered on 21:49; Start 02/28/17 at 12:45; Stop 03/10/17 at 15:11; Status DC Venlafaxine HCl (Effexor Xr) 75 mg DAILY PO Last administered on 02/06/17 08:28; Start 02/04/17 at 09:00; Stop 02/06/17 at 18:02; Status DC Venlafaxine HCl (Effexor Xr) 150 mg BID PO Last administered on 04/04/17 20:27; Start 03/07/17 at 09:00; Stop 04/06/17 at 08:59 Venlafaxine HCl (Effexor Xr) 150 mg QHS PO Last administered on 02/23/17 21 :05; Start 02/07/17 at 21:00; Stop 02/24/17 at 17:59; Status DC Venlafaxine HCl (Effexor) 150 mg BID PO Last administered on 03/06/17 20:04; Start 02/24/17 at 21:00; Stop 03/06/17 at 23:26; Status DC Allergies Coded Allergies: Loxapine (Verified Allergy, Mild, 01/21/13) Thiothixene (Verified Allergy, Mild, 01/21/13) Fluphenazine (Verified Allergy, Unknown, 09/12/15) UNKNOWN [place] (Verified Allergy, Unknown, UNKNOWN, 09/12/15) Meperidine (Verified Allergy, Unknown, UNKNOWN, 09/12/15) Phenothiazines (Verified Allergy, Unknown, UNKNOWN, 09/12/15) Thioridazine (Verified Allergy, Unknown, UNKNOWN, 09/12/15) KELVIN GARIBAY MD Apr 04, 2017 22:02
[2017-04-05] MEDS: DOCUSATE SODIUM 100 MG CAP PO SCH ×2 (08:04→20:18)
[2017-04-05] MEDS: GABAPENTIN 300 MG CAP PO SCH ×3 (08:04→20:17)
[2017-04-05] MEDS: VENLAFAXINE **XR** 75MG CAPSULE PO SCH ×2 (08:04→20:16)
[2017-04-05] MEDS: ARIPiprazole 10 MG TAB PO SCH ×2 (08:04→20:17)
[2017-04-05] MEDS: NICOTINE 21MG/24HR 1 EA TRANSDERMAL TD SCH (08:05)
[2017-04-05 18:30] VITALS: BP 140/85
[2017-04-05] MEDS: cloZAPine 25 MG TAB (S0136) PO SCH (20:16)
[2017-04-05] MEDS: cloZAPine 100 MG TAB (S0136) PO SCH (20:17)
[2017-04-06] MEDS: GABAPENTIN 300 MG CAP PO SCH ×3 (08:03→20:31)
[2017-04-06] MEDS: ARIPiprazole 10 MG TAB PO SCH ×2 (08:03→20:31)
[2017-04-06] MEDS: DOCUSATE SODIUM 100 MG CAP PO SCH ×2 (08:03→20:31)
[2017-04-06] MEDS: VENLAFAXINE **XR** 75MG CAPSULE PO SCH ×2 (08:03→20:31)
[2017-04-06] MEDS: NICOTINE 21MG/24HR 1 EA TRANSDERMAL TD SCH (08:04)
[2017-04-06 18:00] VITALS: BP 116/62
[2017-04-06] MEDS: cloZAPine 25 MG TAB (S0136) PO SCH (20:30)
[2017-04-06] MEDS: cloZAPine 100 MG TAB (S0136) PO SCH (20:30)
[2017-04-07] MEDS: ARIPiprazole 10 MG TAB PO SCH ×2 (08:30→20:16)
[2017-04-07] MEDS: DOCUSATE SODIUM 100 MG CAP PO SCH ×2 (08:30→20:16)
[2017-04-07] MEDS: NICOTINE 21MG/24HR 1 EA TRANSDERMAL TD SCH (08:31)
[2017-04-07] MEDS: VENLAFAXINE **XR** 75MG CAPSULE PO SCH ×2 (08:31→20:16)
[2017-04-07] MEDS: GABAPENTIN 300 MG CAP PO SCH ×3 (08:31→20:16)
--- NOTE | 2017-04-07 15:49 | MHIPNPDOC ---
[facility] Progress Note Progress Note DATE OF SERVICE: 04/07/17 INTERVAL HISTORY: Medication Side effects: Denies Behavior: Is less isolated to his room, spends more time in groups and in hallways but continues to be suspicious of peers Group Attendance: Continues to attend groups regularly Psychiatric Symptom change: Less depressed, less anxious, hopeful. VITAL SIGNS: See below. NEW TEST RESULTS: See below CURRENT MEDICATIONS: See below. MENTAL STATUS EXAMINATION: General: Alert, cooperative, fair eye contact, with good hygiene and appropriately attired. Speech: Not circumstantial and not tangential Thought processes: Irrational Thought content: Goal-directed, thoughts about going to [facility], about being able to improve and eventually getting a job. Abstract reasoning, and computation: Limited Description of associations: Not loose Description of abnormal or psychotic thoughts: Delusional, paranoid and persecutory type. Denies auditory and visual hallucinations, denies suicidal and homicidal thoughts/plans. Judgment: Limited Insight: Limited Orientation: Oriented to place and person only Recent and remote memory: Poor Attention span and concentration: Fair Fund of knowledge: Fair Mood: "I'm doing okay" Affect: Slightly constricted. DIAGNOSES: 1. Paranoid schizophrenia. 2. Major depressive disorder. 3. . ASSESSMENT: Patient is less depressed, he remains less time isolated to his room , spends more time pacing the hallways or attending groups. He has more energy and is hopeful about a possible change in his psychiatric symptoms once he goes to [facility]. He continues to be delusional with paranoid and persecutory delusions. MANAGEMENT PLAN: Medications: Haldol Decanoate 50 mg IM every 2 weeks, Clozaril up 100 mg by mouth daily at bedtime, gabapentin 600 mg by mouth twice a day and 300 mg by mouth daily at bedtime, mirtazapine 45 mg by mouth daily at bedtime and venlafaxine 150 mg by mouth twice a day Psychotherapy: He attends groups and will be encouraged again to keep attending than Social: Will provide patient's education about the importance of a social network. Misc: -- Disposition: Patient is still pending of being transferred to [facility]. TIME SPENT: 20 minutes. Vital Signs Vital Signs Date Time Temp Pulse Resp B/P (MAP) Pulse Ox O2 Delivery O2 Flow Rate FiO2 04/06/17 18:00 97.6 86 18 116/62 (80) Current Medications Current Medications Acetaminophen (Tylenol Tab) 650 mg Q6HP PRN PO HEADACHE or DISCOMFORT Last administered on 03/27/17 19:37; Start 02/03/17 at 15:45; Stop 05/03/17 at 15:44 Acetaminophen (Tylenol Tab) 650 mg Q6HP PRN PO HEADACHE or DISCOMFORT; Start at 19:15; Stop 04/04/17 at 19:14; Status Cancel Al Hydrox/Mg Hydrox/Simethicone (Mylanta) 30 ml Q4HP PRN PO HEARTBURN/ INDIGESTION; Start 02/03/17 at 15:45; Stop 03/05/17 at 15:44; Status DC Al Hydrox/Mg Hydrox/Simethicone (Mylanta) 30 ml Q4HP PRN PO HEARTBURN/ INDIGESTION Last administered on 04/01/17 22:41; Start 03/05/17 at 19:30; Stop 05/03/17 at 19:29 Al Hydrox/Mg Hydrox/Simethicone (Mylanta) 30 ml Q4HP PRN PO HEARTBURN/ INDIGESTION; Start 03/06/17 at 10:00; Stop 04/04/17 at 09:59; Status Cancel Aripiprazole (AbiLIFY) 2.5 mg QHS PO Last administered on 02/16/17 20:07; Start 02/07/17 at 21:00; Stop 02/17/17 at 12:25; Status DC Aripiprazole (AbiLIFY) 5 mg QHS PO Last administered on 02/23/17 21:06; Start 02/17/17 at 21:00; Stop 02/24/17 at 17:48; Status DC Aripiprazole (AbiLIFY) 7.5 mg BID PO Last administered on 02/25/17 08:02; Start 02/24/17 at 21:00; Stop 02/25/17 at 11:54; Status DC Aripiprazole (AbiLIFY) 10 mg BID PO Last administered on 03/21/17 08:19; Start 03/18/17 at 21:00; Stop 03/21/17 at 16:03; Status DC Aripiprazole (AbiLIFY) 10 mg BID PO Last administered on 03/03/17 08:14; Start 02/25/17 at 21:00; Stop 03/03/17 at 10:13; Status DC Aripiprazole (AbiLIFY) 15 mg BID PO Last administered on 03/08/17 08:08; Start 03/03/17 at 21:00; Stop 03/08/17 at 08:14; Status DC Aripiprazole (AbiLIFY) 15 mg BID PO ; Start 03/08/17 at 09:00; Stop 04/02/17 at 20:59; Status Cancel Aripiprazole (AbiLIFY) 15 mg BID PO Last administered on 03/10/17 08:03; Start 03/08/17 at 21:00; Stop 03/10/17 at 15:14; Status DC Aripiprazole (AbiLIFY) 15 mg BID PO Last administered on 03/18/17 08:37; Start 03/14/17 at 21:00; Stop 03/18/17 at 12:15; Status DC Aripiprazole (AbiLIFY) 15 mg BID PO Last administered on 03/25/17 08:05; Start 03/21/17 at 21:00; Stop 03/25/17 at 16:17; Status DC Aripiprazole (AbiLIFY) 20 mg BID PO Last administered on 03/14/17 08:05; Start 03/10/17 at 21:00; Stop 03/14/17 at 14:42; Status DC Aripiprazole (AbiLIFY) 20 mg BID PO Last administered on 04/07/17 08:30; Start 03/25/17 at 21:00; Stop 04/24/17 at 20:59 Benztropine Mesylate (Cogentin) 0.5 mg BID PO Last administered on 02/23/17 08: 43; Start 02/04/17 at 09:00; Stop 02/23/17 at 13:41; Status DC Benztropine Mesylate (Cogentin) 1 mg BID PO Last administered on 03/14/17 08: 05; Start 02/23/17 at 09:00; Stop 03/14/17 at 16:09; Status DC Benztropine Mesylate (Cogentin) 1 mg TID PO Last administered on 03/24/17 20:11 ; Start 03/14/17 at 21:00; Stop 03/25/17 at 08:59; Status DC Buspirone HCl (Buspar) 7.5 mg TID PO Last administered on 02/26/17 08:04; Start 02/04/17 at 16:00; Stop 02/26/17 at 12:48; Status DC Clozapine (Clozaril) 25 mg QHS PO Last administered on 03/20/17 21:41; Start at 21:00; Stop 03/21/17 at 08:59; Status DC Clozapine (Clozaril) 50 mg QAM PO Last administered on 03/18/17 08:37; Start 03/14/17 at 09:00; Stop 03/18/17 at 21:20; Status DC Clozapine (Clozaril) 50 mg QHS PO Last administered on 03/25/17 22:42; Start at 21:00; Stop 03/27/17 at 13:55; Status DC Clozapine (Clozaril) 75 mg QHS PO Last administered on 04/06/17 20:30; Start 03/27/17 at 21:00; Stop 04/09/17 at 20:59 Clozapine (Clozaril) 100 mg QHS PO Last administered on 04/06/17 20:30; Start 04/03/17 at 21:00; Stop 04/10/17 at 21:00 Docusate Sodium (Colace) 100 mg BID PO Last administered on 04/07/17 08:30; Start 02/03/17 at 21:00; Stop 05/03/17 at 20:59 Gabapentin (Neurontin) 100 mg QAM PO Last administered on 02/24/17 08:14; Start 02/04/17 at 09:00; Stop 02/24/17 at 17:59; Status DC Gabapentin (Neurontin) 200 mg QAM PO Last administered on 03/19/17 08:04; Start 02/25/17 at 09:00; Stop 03/19/17 at 11:00; Status DC Gabapentin (Neurontin) 300 mg QHS PO Last administered on 04/06/17 20:31; Start 03/21/17 at 21:00; Stop 04/20/17 at 20:59 Gabapentin (Neurontin) 300 mg TID PO ; Start 03/21/17 at 21:00; Stop 03/21/17 at 21:00; Status DC Gabapentin (Neurontin) 400 mg QHS PO Last administered on 03/18/17 20:56; Start 02/04/17 at 21:00; Stop 03/19/17 at 11:00; Status DC Gabapentin (Neurontin) 600 mg BID@0900,1600 PO Last administered on 04/07/17 08:31; Start 03/21/17 at 16:00; Stop 04/20/17 at 15:59 Haloperidol Decanoate (Haldol Decanoate) 50 mg Q14D STAT IM ; Start 02/18/17 at 20:24; Stop 02/18/17 at 20:25; Status Cancel Haloperidol Decanoate (Haldol Decanoate) 50 mg Q14D@0900 IM Last administered on 04/01/17 10:33; Start 03/18/17 at 09:00; Stop 04/17/17 at 08:59 Haloperidol Decanoate (Haldol Decanoate) 50 mg Q14D@14 IM Last administered on 03/04/17 13:27; Start 02/04/17 at 14:00; Stop 03/06/17 at 13:59; Status DC Home Med (Med Rec Complete!) ASDIRECTED XX ; Start 02/03/17 at 12:15; Stop at 12:15; Status DC Lorazepam (Ativan) 1 mg Q8HP PRN PO ANXIETY/AGITATION Last administered on 20:52; Start 02/03/17 at 15:45; Stop 02/26/17 at 12:48; Status DC Lorazepam (Ativan) 1 mg TID PO Last administered on 03/19/17 08:04; Start 08/05 at 16:00; Stop 03/19/17 at 11:02; Status DC Lorazepam (Ativan) 1 mg TID PO Last administered on 03/26/17 08:06; Start at 21:00; Stop 03/26/17 at 11:14; Status DC Lorazepam (Ativan) 1 mg TID PRN PO Anxiety Last administered on 03/19/17 16:11 ; Start 03/19/17 at 11:15; Stop 03/21/17 at 16:07; Status DC Magnesium Hydroxide (Milk Of Magnesia) 30 ml DAILYPRN PRN PO CONSTIPATION; Start 02/03/17 at 15:45; Stop 03/05/17 at 15:44; Status DC Magnesium Hydroxide (Milk Of Magnesia) 30 ml DAILYPRN PRN PO CONSTIPATION Last administered on 03/24/17 15:50; Start 03/05/17 at 19:15; Stop 05/03/17 at 19:14 Mirtazapine (Remeron) 15 mg QHS PO Last administered on 02/27/17 21:37; Start 02/04/17 at 21:00; Stop 02/28/17 at 09:19; Status DC Mirtazapine (Remeron) 30 mg QHS PO Last administered on 03/18/17 20:56; Start 02/28/17 at 21:00; Stop 03/19/17 at 11:02; Status DC Mirtazapine (Remeron) 30 mg QHS PRN PO Insomnia; Start 03/19/17 at 11:15; Stop 03/21/17 at 16:05; Status DC Mirtazapine (Remeron) 45 mg QHSP PRN PO Insomnia; Start 03/21/17 at 16:15; Stop 04/20/17 at 16:14 Miscellaneous (Unresolved Clarification Entry) SEE LABEL COMMENTS UNRESOLVED XX ; Start 03/07/17 at 00:01; Stop 03/10/17 at 15:08; Status DC Nicotine (Nicoderm Cq 21mg) 1 patch DAILY TD Last administered on 04/07/17 08: 31; Start 02/04/17 at 09:00; Stop 05/03/17 at 08:59 Olanzapine (ZyPREXA) 10 mg DAILY PO Last administered on 02/04/17 08:59; Start 02/03/17 at 09:00; Stop 02/04/17 at 14:20; Status DC Quetiapine Fumarate (SEROquel) 200 mg QHS PO ; Start 02/04/17 at 21:00; Stop at 13:42; Status DC Trazodone HCl (Desyrel) 50 mg QHSP PRN PO INSOMNIA; Start 02/03/17 at 16:45; Stop 03/05/17 at 16:44; Status Cancel Trazodone HCl (Desyrel) 50 mg QHSP PRN PO INSOMNIA Last administered on 21:49; Start 02/28/17 at 12:45; Stop 03/10/17 at 15:11; Status DC Venlafaxine HCl (Effexor Xr) 75 mg DAILY PO Last administered on 02/06/17 08:28; Start 02/04/17 at 09:00; Stop 02/06/17 at 18:02; Status DC Venlafaxine HCl (Effexor Xr) 150 mg BID PO Last administered on 04/07/17 08:31; Start 03/07/17 at 09:00; Stop 05/05/17 at 08:59 Venlafaxine HCl (Effexor Xr) 150 mg QHS PO Last administered on 02/23/17 21 :05; Start 02/07/17 at 21:00; Stop 02/24/17 at 17:59; Status DC Venlafaxine HCl (Effexor) 150 mg BID PO Last administered on 03/06/17 20:04; Start 02/24/17 at 21:00; Stop 03/06/17 at 23:26; Status DC Allergies Coded Allergies: Loxapine (Verified Allergy, Mild, 01/21/13) Thiothixene (Verified Allergy, Mild, 01/21/13) Fluphenazine (Verified Allergy, Unknown, 09/12/15) UNKNOWN [place] (Verified Allergy, Unknown, UNKNOWN, 09/12/15) Meperidine (Verified Allergy, Unknown, UNKNOWN, 09/12/15) Phenothiazines (Verified Allergy, Unknown, UNKNOWN, 09/12/15) Thioridazine (Verified Allergy, Unknown, UNKNOWN, 09/12/15) KELVIN GARIBAY MD Apr 07, 2017 15:49
[2017-04-07 18:00] VITALS: BP 134/66
[2017-04-07] MEDS: cloZAPine 100 MG TAB (S0136) PO SCH (20:16)
[2017-04-07] MEDS: cloZAPine 25 MG TAB (S0136) PO SCH (20:16)
[2017-04-08 06:46] VITALS: BP 123/65
[2017-04-08] MEDS: VENLAFAXINE **XR** 75MG CAPSULE PO SCH ×2 (08:05→20:35)
[2017-04-08] MEDS: NICOTINE 21MG/24HR 1 EA TRANSDERMAL TD SCH (08:05)
[2017-04-08] MEDS: DOCUSATE SODIUM 100 MG CAP PO SCH ×2 (08:05→20:35)
[2017-04-08] MEDS: ARIPiprazole 10 MG TAB PO SCH ×2 (08:05→20:36)
[2017-04-08] MEDS: GABAPENTIN 300 MG CAP PO SCH ×3 (08:06→20:35)
--- NOTE | 2017-04-08 13:18 | MHIPNPDOC ---
[facility] Progress Note Progress Note DATE OF SERVICE: 04/08/17 INTERVAL HISTORY: Medication Side effects: Denies medication side effects Behavior: Cooperative, less guarded, not violent, not aggressive. More interactive during groups. Continues to be very guarded with peers and occasionally with some staff members Group Attendance: Has been attending groups Psychiatric Symptom change: Less guarded but continues to have paranoid delusions. He is less depressed and anxious. VITAL SIGNS: See below. NEW TEST RESULTS: See below CURRENT MEDICATIONS: See below. MENTAL STATUS EXAMINATION: General: Alert, cooperative, less guarded with fair eye contact. Speech: Less circumstantial and less tangential. Thought processes: Still irrational, but slightly less disorganized. Thought content: He is looking forward to being discharged and transferred to [facility], that motivates him. Abstract reasoning, and computation: Limited Description of associations: Loose at times Description of abnormal or psychotic thoughts: Paranoid and persecutory delusions are still present although he denies auditory and visual hallucinations. Occasionally he talks to himself and laughs inappropriately. Denies suicidal and homicidal ideation. Judgment: Limited Insight: Limited Orientation: Oriented 3 Recent and remote memory: Intact Attention span and concentration: Fair Fund of knowledge: Fair Mood: "I'm okay" Affect: A little less constricted. DIAGNOSES: 1. Paranoid schizophrenia. 2. Major depressive disorder. ASSESSMENT: Patient has had poor response to venlafaxine and he is less depressed and although he is on Clozaril on an different antipsychotics he is still paranoid, although slightly less guarded and isolated than before. MANAGEMENT PLAN: Medications: Will continue with current medications Psychotherapy: He attends groups but he will encouraged to attend all groups. Social: He has no family or social support, has not received any calls or visits since he has been here at the hospital. He has been receiving some education as of Y social and family networks are desirable and necessary. He doesn't socialize and he stays away from people because he is paranoid but hopefully one day he will be less paranoid and will be able to engage in positive and healthy relationships because he certainly needs social support. Misc: --- Disposition: Patient still pending of being transferred to [facility]. TIME SPENT: 30 minutes. Vital Signs Vital Signs Date Time Temp Pulse Resp B/P (MAP) Pulse Ox O2 Delivery O2 Flow Rate FiO2 04/08/17 06:46 98.7 97 18 123/65 (84) Current Medications Current Medications Acetaminophen (Tylenol Tab) 650 mg Q6HP PRN PO HEADACHE or DISCOMFORT Last administered on 03/27/17 19:37; Start 02/03/17 at 15:45; Stop 05/03/17 at 15:44 Acetaminophen (Tylenol Tab) 650 mg Q6HP PRN PO HEADACHE or DISCOMFORT; Start at 19:15; Stop 04/04/17 at 19:14; Status Cancel Al Hydrox/Mg Hydrox/Simethicone (Mylanta) 30 ml Q4HP PRN PO HEARTBURN/ INDIGESTION; Start 02/03/17 at 15:45; Stop 03/05/17 at 15:44; Status DC Al Hydrox/Mg Hydrox/Simethicone (Mylanta) 30 ml Q4HP PRN PO HEARTBURN/ INDIGESTION Last administered on 04/01/17 22:41; Start 03/05/17 at 19:30; Stop 05/03/17 at 19:29 Al Hydrox/Mg Hydrox/Simethicone (Mylanta) 30 ml Q4HP PRN PO HEARTBURN/ INDIGESTION; Start 03/06/17 at 10:00; Stop 04/04/17 at 09:59; Status Cancel Aripiprazole (AbiLIFY) 2.5 mg QHS PO Last administered on 02/16/17 20:07; Start 02/07/17 at 21:00; Stop 02/17/17 at 12:25; Status DC Aripiprazole (AbiLIFY) 5 mg QHS PO Last administered on 02/23/17 21:06; Start 02/17/17 at 21:00; Stop 02/24/17 at 17:48; Status DC Aripiprazole (AbiLIFY) 7.5 mg BID PO Last administered on 02/25/17 08:02; Start 02/24/17 at 21:00; Stop 02/25/17 at 11:54; Status DC Aripiprazole (AbiLIFY) 10 mg BID PO Last administered on 03/21/17 08:19; Start 03/18/17 at 21:00; Stop 03/21/17 at 16:03; Status DC Aripiprazole (AbiLIFY) 10 mg BID PO Last administered on 03/03/17 08:14; Start 02/25/17 at 21:00; Stop 03/03/17 at 10:13; Status DC Aripiprazole (AbiLIFY) 15 mg BID PO Last administered on 03/08/17 08:08; Start 03/03/17 at 21:00; Stop 03/08/17 at 08:14; Status DC Aripiprazole (AbiLIFY) 15 mg BID PO ; Start 03/08/17 at 09:00; Stop 04/02/17 at 20:59; Status Cancel Aripiprazole (AbiLIFY) 15 mg BID PO Last administered on 03/10/17 08:03; Start 03/08/17 at 21:00; Stop 03/10/17 at 15:14; Status DC Aripiprazole (AbiLIFY) 15 mg BID PO Last administered on 03/18/17 08:37; Start 03/14/17 at 21:00; Stop 03/18/17 at 12:15; Status DC Aripiprazole (AbiLIFY) 15 mg BID PO Last administered on 03/25/17 08:05; Start 03/21/17 at 21:00; Stop 03/25/17 at 16:17; Status DC Aripiprazole (AbiLIFY) 20 mg BID PO Last administered on 03/14/17 08:05; Start 03/10/17 at 21:00; Stop 03/14/17 at 14:42; Status DC Aripiprazole (AbiLIFY) 20 mg BID PO Last administered on 04/08/17 08:05; Start 03/25/17 at 21:00; Stop 04/24/17 at 20:59 Benztropine Mesylate (Cogentin) 0.5 mg BID PO Last administered on 02/23/17 08: 43; Start 02/04/17 at 09:00; Stop 02/23/17 at 13:41; Status DC Benztropine Mesylate (Cogentin) 1 mg BID PO Last administered on 03/14/17 08: 05; Start 02/23/17 at 09:00; Stop 03/14/17 at 16:09; Status DC Benztropine Mesylate (Cogentin) 1 mg TID PO Last administered on 03/24/17 20:11 ; Start 03/14/17 at 21:00; Stop 03/25/17 at 08:59; Status DC Buspirone HCl (Buspar) 7.5 mg TID PO Last administered on 02/26/17 08:04; Start 02/04/17 at 16:00; Stop 02/26/17 at 12:48; Status DC Clozapine (Clozaril) 25 mg QHS PO Last administered on 03/20/17 21:41; Start at 21:00; Stop 03/21/17 at 08:59; Status DC Clozapine (Clozaril) 50 mg QAM PO Last administered on 03/18/17 08:37; Start 03/14/17 at 09:00; Stop 03/18/17 at 21:20; Status DC Clozapine (Clozaril) 50 mg QHS PO Last administered on 03/25/17 22:42; Start at 21:00; Stop 03/27/17 at 13:55; Status DC Clozapine (Clozaril) 75 mg QHS PO Last administered on 04/07/17 20:16; Start 03/27/17 at 21:00; Stop 04/09/17 at 20:59 Clozapine (Clozaril) 100 mg QHS PO Last administered on 04/07/17 20:16; Start 04/03/17 at 21:00; Stop 04/10/17 at 21:00 Docusate Sodium (Colace) 100 mg BID PO Last administered on 04/08/17 08:05; Start 02/03/17 at 21:00; Stop 05/03/17 at 20:59 Gabapentin (Neurontin) 100 mg QAM PO Last administered on 02/24/17 08:14; Start 02/04/17 at 09:00; Stop 02/24/17 at 17:59; Status DC Gabapentin (Neurontin) 200 mg QAM PO Last administered on 03/19/17 08:04; Start 02/25/17 at 09:00; Stop 03/19/17 at 11:00; Status DC Gabapentin (Neurontin) 300 mg QHS PO Last administered on 04/07/17 20:16; Start 03/21/17 at 21:00; Stop 04/20/17 at 20:59 Gabapentin (Neurontin) 300 mg TID PO ; Start 03/21/17 at 21:00; Stop 03/21/17 at 21:00; Status DC Gabapentin (Neurontin) 400 mg QHS PO Last administered on 03/18/17 20:56; Start 02/04/17 at 21:00; Stop 03/19/17 at 11:00; Status DC Gabapentin (Neurontin) 600 mg BID@0900,1600 PO Last administered on 04/08/17 08:06; Start 03/21/17 at 16:00; Stop 04/20/17 at 15:59 Haloperidol Decanoate (Haldol Decanoate) 50 mg Q14D STAT IM ; Start 02/18/17 at 20:24; Stop 02/18/17 at 20:25; Status Cancel Haloperidol Decanoate (Haldol Decanoate) 50 mg Q14D@0900 IM Last administered on 04/01/17 10:33; Start 03/18/17 at 09:00; Stop 04/17/17 at 08:59 Haloperidol Decanoate (Haldol Decanoate) 50 mg Q14D@14 IM Last administered on 03/04/17 13:27; Start 02/04/17 at 14:00; Stop 03/06/17 at 13:59; Status DC Home Med (Med Rec Complete!) ASDIRECTED XX ; Start 02/03/17 at 12:15; Stop at 12:15; Status DC Lorazepam (Ativan) 1 mg Q8HP PRN PO ANXIETY/AGITATION Last administered on 20:52; Start 02/03/17 at 15:45; Stop 02/26/17 at 12:48; Status DC Lorazepam (Ativan) 1 mg TID PO Last administered on 03/19/17 08:04; Start 08/05 at 16:00; Stop 03/19/17 at 11:02; Status DC Lorazepam (Ativan) 1 mg TID PO Last administered on 03/26/17 08:06; Start at 21:00; Stop 03/26/17 at 11:14; Status DC Lorazepam (Ativan) 1 mg TID PRN PO Anxiety Last administered on 03/19/17 16:11 ; Start 03/19/17 at 11:15; Stop 03/21/17 at 16:07; Status DC Magnesium Hydroxide (Milk Of Magnesia) 30 ml DAILYPRN PRN PO CONSTIPATION; Start 02/03/17 at 15:45; Stop 03/05/17 at 15:44; Status DC Magnesium Hydroxide (Milk Of Magnesia) 30 ml DAILYPRN PRN PO CONSTIPATION Last administered on 03/24/17 15:50; Start 03/05/17 at 19:15; Stop 05/03/17 at 19:14 Mirtazapine (Remeron) 15 mg QHS PO Last administered on 02/27/17 21:37; Start 02/04/17 at 21:00; Stop 02/28/17 at 09:19; Status DC Mirtazapine (Remeron) 30 mg QHS PO Last administered on 03/18/17 20:56; Start 02/28/17 at 21:00; Stop 03/19/17 at 11:02; Status DC Mirtazapine (Remeron) 30 mg QHS PRN PO Insomnia; Start 03/19/17 at 11:15; Stop 03/21/17 at 16:05; Status DC Mirtazapine (Remeron) 45 mg QHSP PRN PO Insomnia; Start 03/21/17 at 16:15; Stop 04/20/17 at 16:14 Miscellaneous (Unresolved Clarification Entry) SEE LABEL COMMENTS UNRESOLVED XX ; Start 03/07/17 at 00:01; Stop 03/10/17 at 15:08; Status DC Nicotine (Nicoderm Cq 21mg) 1 patch DAILY TD Last administered on 04/08/17 08: 05; Start 02/04/17 at 09:00; Stop 05/03/17 at 08:59 Olanzapine (ZyPREXA) 10 mg DAILY PO Last administered on 02/04/17 08:59; Start 02/03/17 at 09:00; Stop 02/04/17 at 14:20; Status DC Quetiapine Fumarate (SEROquel) 200 mg QHS PO ; Start 02/04/17 at 21:00; Stop at 13:42; Status DC Trazodone HCl (Desyrel) 50 mg QHSP PRN PO INSOMNIA; Start 02/03/17 at 16:45; Stop 03/05/17 at 16:44; Status Cancel Trazodone HCl (Desyrel) 50 mg QHSP PRN PO INSOMNIA Last administered on 21:49; Start 02/28/17 at 12:45; Stop 03/10/17 at 15:11; Status DC Venlafaxine HCl (Effexor Xr) 75 mg DAILY PO Last administered on 02/06/17 08:28; Start 02/04/17 at 09:00; Stop 02/06/17 at 18:02; Status DC Venlafaxine HCl (Effexor Xr) 150 mg BID PO Last administered on 04/08/17 08:05; Start 03/07/17 at 09:00; Stop 05/05/17 at 08:59 Venlafaxine HCl (Effexor Xr) 150 mg QHS PO Last administered on 02/23/17 21 :05; Start 02/07/17 at 21:00; Stop 02/24/17 at 17:59; Status DC Venlafaxine HCl (Effexor) 150 mg BID PO Last administered on 03/06/17 20:04; Start 02/24/17 at 21:00; Stop 03/06/17 at 23:26; Status DC Allergies Coded Allergies: Loxapine (Verified Allergy, Mild, 01/21/13) Thiothixene (Verified Allergy, Mild, 01/21/13) Fluphenazine (Verified Allergy, Unknown, 09/12/15) UNKNOWN [place] (Verified Allergy, Unknown, UNKNOWN, 09/12/15) Meperidine (Verified Allergy, Unknown, UNKNOWN, 09/12/15) Phenothiazines (Verified Allergy, Unknown, UNKNOWN, 09/12/15) Thioridazine (Verified Allergy, Unknown, UNKNOWN, 09/12/15) KELVIN GARIBAY MD Apr 08, 2017 13:18
[2017-04-08] MEDS: cloZAPine 100 MG TAB (S0136) PO SCH (20:32)
[2017-04-08] MEDS: cloZAPine 25 MG TAB (S0136) PO SCH (20:39)
[2017-04-09] MEDS: NICOTINE 21MG/24HR 1 EA TRANSDERMAL TD SCH (08:42)
[2017-04-09] MEDS: VENLAFAXINE **XR** 75MG CAPSULE PO SCH ×2 (08:42→20:17)
[2017-04-09] MEDS: DOCUSATE SODIUM 100 MG CAP PO SCH ×2 (08:42→20:17)
[2017-04-09] MEDS: ARIPiprazole 10 MG TAB PO SCH ×2 (08:42→20:18)
[2017-04-09] MEDS: GABAPENTIN 300 MG CAP PO SCH ×3 (08:43→20:17)
[2017-04-09 18:52] VITALS: BP 125/79
[2017-04-09] MEDS: cloZAPine 100 MG TAB (S0136) PO SCH (20:17)
[2017-04-09] MEDS: cloZAPine 25 MG TAB (S0136) PO SCH (20:17)
--- NOTE | 2017-04-10 06:10 | IPN ---
DATE: 04/09/2017 A 52-year-old male known for paranoid schizophrenia and major depressive disorder. NEW TEST RESULTS: There are no new test results, but tomorrow a new CBC with differential will be ordered because his Clozaril dose will be adjusted as of tomorrow night. VITAL SIGNS: Stable. MENTAL STATUS EXAMINATION: -The patient is a 52-year-old male who is alert, cooperative and pleasant on interview, with fair eye contact, dressed in personal clothes. -His speech is sparse but he is not tangential today, although he is a little bit circumstantial. - Language skills are fair. -Thought process is still disorganized because he is still psychotic and not exactly goal directed. -His thought content consists of anxious thoughts because he worries about not being transferred to [facility]. He complained of some of the patients staring at him last night while he was having dinner at the [facility] [place]. - Abstract reasoning and computation are limited due to patient's cognitive impairment secondary to mental illness. -Description of associations: There is no loosening of associations. -Judgment is poor. -Insight is poor. He continues to say that he will not go back to [place] because people want to kill him there. -Orientation: He is oriented to place and person only. -Recent and remote memory: He has good recent memory, but his remote memory is poor, most likely due to the cognitive impairment caused by mental illness. -Attention span and concentration: Are fair. -Language: Is fair. -Fund of knowledge: Is fair. -Mood: "I'm nervous." -Affect: Is constricted, blunted. DIAGNOSES: 1. Paranoid schizophrenia. 2. Major depressive disorder. ASSESSMENT: The patient is extremely bored at the inpatient mental health unit, and he is afraid of not being accepted at long-term treatment facility. He has expressed fear of being on his own and returning to [place]. He has always felt threatened by other people and he is convinced that there are people in there that want to kill him. The patient will have blood drawn tomorrow for his new complete blood count (CBC) with differential and we will increase Clozaril to 200 mg daily if the CBC with differential is within normal limits. MANAGEMENT PLAN: As above. TIME SPENT: 30 minutes. [facility]
[2017-04-10] MEDS: GABAPENTIN 300 MG CAP PO SCH ×3 (08:13→20:03)
[2017-04-10] MEDS: ARIPiprazole 10 MG TAB PO SCH ×2 (08:14→20:03)
[2017-04-10] MEDS: VENLAFAXINE **XR** 75MG CAPSULE PO SCH ×2 (08:14→20:03)
[2017-04-10] MEDS: DOCUSATE SODIUM 100 MG CAP PO SCH ×2 (08:14→20:01)
[2017-04-10] MEDS: NICOTINE 21MG/24HR 1 EA TRANSDERMAL TD SCH (08:15)
[2017-04-10] MEDS ORDERED: cloZAPine 100 MG TAB (S0136) PO SCH ×2 (21:00)
--- NOTE | 2017-04-11 00:26 | IPN ---
DATE: 04/10/2017 Evaluated 52-year-old male with a history of paranoid schizophrenia (#1) and (#2) major depressive disorder. New test results: There are no new test results. Today, in the afternoon, a CBC with differential will be ordered in order to increase the dose of Clozaril to 200 mg by mouth daily. MENTAL STATUS EXAMINATION: The patient is a 52-year-old male who was seen dressed in personal clothes, with good hygiene and with a pleasant and cooperative attitude. He has good eye contact and good rapport. His speech was less tangential and less circumferential, although it is not completely organized. Language skills are fair considering the chronic mental illness of the patient. Thought process is still slightly disorganized, and he still has paranoid delusions. His thought content is still full of anxious thoughts regarding his future because he prefers to go to [facility] or to a long-term treatment hospitalization instead of going home. He reports, once again, that he feels scared of being on his own, he has always felt threatened when he is alone. Abstract reasoning and computation are limited due to the patient's cognitive impairment due to chronic mental illness. Description of associations: There is no loosening of associations. Judgment is poor. Insight is poor. Orientation: He is oriented to place and person only. Recent and remote memory are very limited, almost impaired due to the cognitive impairment caused by chronic schizophrenia. Attention span and concentration are fair. Language is adequate. Fund of knowledge is fair. Mood and affect are anxious (mood) and affect is slightly constricted. ASSESSMENT: The patient was seen in better spirits today, less disappointed of not being transferred to [facility], a little bit more hopeful, with better eye contact with a more reactive affect. He is still feeling scared of going back to [place] to live in his apartment. He feels that he will do better at an inpatient setting or at [facility] in [place], but he is being covered by [facility] (in [place]) where he has all of his services. Still pending to hear from [facility] to transfer the patient. MANAGEMENT PLAN: Will continue the same medications, except for Clozaril that will be increased tonight to 200 mg. Time spent: 30 minutes.
[2017-04-11] MEDS: ACETAMINOPHEN TAB 650MG DOSE (2X325MG) PO PRN (06:17)
[2017-04-11 06:34] VITALS: BP 124/68
[2017-04-11] MEDS: ARIPiprazole 10 MG TAB PO SCH (07:48)
[2017-04-11] MEDS: DOCUSATE SODIUM 100 MG CAP PO SCH (07:48)
[2017-04-11] MEDS: GABAPENTIN 300 MG CAP PO SCH ×2 (07:48→16:00)
[2017-04-11] MEDS: VENLAFAXINE **XR** 75MG CAPSULE PO SCH (07:48)
[2017-04-11] MEDS: NICOTINE 21MG/24HR 1 EA TRANSDERMAL TD SCH (07:49)
[2017-04-11 08:10] VITALS: BP 123/66
[2017-04-11 10:14] LABS: BASO # 0.1 K/mm3 (0.0-0.2); BASO % 0.4 % (0.0-1.0); EOS # 0.1 K/mm3 (0.0-0.50); EOS % 0.4 % (0.0-3.0); LARGE UNSTAINED CELL # 0.2 K/mm3 (0.0-0.4); LARGE UNSTAINED CELL % 0.8 % (0.0-4.0); LYMPH # 1.3 K/mm3 (1.5-4.5); LYMPH % 5.6 % (24.0-44.0); MEAN CORPUSCULAR HEMOGLOBIN 31.6 pg (27.0-33.0); MEAN CORPUSCULAR HGB CONC 35.3 g/dl (32.0-36.5); MEAN CORPUSCULAR VOLUME 89.5 fl (80.0-96.0); MONO % 4.7 % (0.0-5.0); NEUTROPHILS # 18.2 K/mm3 (1.8-7.7); NEUTROPHILS % 88.2 % (36.0-66.0); PLATELET COUNT, AUTOMATED 213 k/mm3 (150-450); WHITE BLOOD COUNT 20.7 K/mm3 (4.0-10.0)
--- NOTE | 2017-04-11 11:58 | MHIPNPDOC ---
[facility] Progress Note Progress Note DATE OF SERVICE: 04/11/17 Patient has 20,000 WBC, was febrile this morning until he received a Tylenol, his pulse was 130x' at 9:30 a.m, was 115x' at 6:30 a.m. Has been on Clozaril and his WBC have been within normal limits and has not shown signs of infection. This morning he complained of dizziness. An ECG was ordered. Contacted Hospitalist immersion metalcleaner for consults who recommended blood cultures and lactate levels. Orders had been sent for chest x ray and urinalisys with urine culture. DIAGNOSES: 1. Sepsis 2. Paranoid schizophrenia 3. Major Depressive Disorder. ASSESSMENT:Clozapine can induce fever but they are mostly benign (Annals of Pharmacotherapy 2007). However he has leucocytosis and high neutrophil count, plus fever, increased heart rate, dizziness. MANAGEMENT PLAN: Pending Hospitalist visit and results. TIME SPENT: 30 minutes. Vital Signs Vital Signs Date Time Temp Pulse Resp B/P (MAP) Pulse Ox O2 Delivery O2 Flow Rate FiO2 04/11/17 06:34 101.9 115 20 124/68 (86) Laboratory Data 24H Labs Laboratory Tests 2 04/11/17 09:52: White Blood Count 20.7H, Red Blood Count 4.53, Hemoglobin 14.3, Hematocrit 40.5L , Mean Corpuscular Volume 89.5, Mean Corpuscular Hemoglobin 31.6, Mean Corpuscular Hemoglobin Concent 35.3, Red Cell Distribution Width 13.0, Platelet Count 213, Neutrophils (%) (Auto) 88.2H, Lymphocytes (%) (Auto) 5.6L, Monocytes (%) (Auto) 4.7, Eosinophils (%) (Auto) 0.4, Basophils (%) (Auto) 0.4, Neutrophils # (Auto) 18.2H, Lymphocytes # (Auto) 1.3L, Monocytes # (Auto) 1.0H, Eosinophils # (Auto) 0.1, Basophils # (Auto) 0.1, Large Unclassified Cells % 0.8 , Large Unclassified Cells # 0.2 CBC/BMP Laboratory Tests 04/11/17 09:52 Red Blood Count 4.53, Mean Corpuscular Volume 89.5, Mean Corpuscular Hemoglobin 31.6, Mean Corpuscular Hemoglobin Concent 35.3, Red Cell Distribution Width 13.0 , Neutrophils (%) (Auto) 88.2 H, Lymphocytes (%) (Auto) 5.6 L, Monocytes (%) ( Auto) 4.7, Eosinophils (%) (Auto) 0.4, Basophils (%) (Auto) 0.4, Neutrophils # ( Auto) 18.2 H, Lymphocytes # (Auto) 1.3 L, Monocytes # (Auto) 1.0 H, Eosinophils # (Auto) 0.1, Basophils # (Auto) 0.1 Current Medications Current Medications Acetaminophen (Tylenol Tab) 650 mg Q6HP PRN PO HEADACHE or DISCOMFORT Last administered on 04/11/17 06:17; Start 02/03/17 at 15:45; Stop 05/03/17 at 15:44 Acetaminophen (Tylenol Tab) 650 mg Q6HP PRN PO HEADACHE or DISCOMFORT; Start at 19:15; Stop 04/04/17 at 19:14; Status Cancel Al Hydrox/Mg Hydrox/Simethicone (Mylanta) 30 ml Q4HP PRN PO HEARTBURN/ INDIGESTION; Start 02/03/17 at 15:45; Stop 03/05/17 at 15:44; Status DC Al Hydrox/Mg Hydrox/Simethicone (Mylanta) 30 ml Q4HP PRN PO HEARTBURN/ INDIGESTION Last administered on 04/01/17 22:41; Start 03/05/17 at 19:30; Stop 05/03/17 at 19:29 Al Hydrox/Mg Hydrox/Simethicone (Mylanta) 30 ml Q4HP PRN PO HEARTBURN/ INDIGESTION; Start 03/06/17 at 10:00; Stop 04/04/17 at 09:59; Status Cancel Aripiprazole (AbiLIFY) 2.5 mg QHS PO Last administered on 02/16/17 20:07; Start 02/07/17 at 21:00; Stop 02/17/17 at 12:25; Status DC Aripiprazole (AbiLIFY) 5 mg QHS PO Last administered on 02/23/17 21:06; Start 02/17/17 at 21:00; Stop 02/24/17 at 17:48; Status DC Aripiprazole (AbiLIFY) 7.5 mg BID PO Last administered on 02/25/17 08:02; Start 02/24/17 at 21:00; Stop 02/25/17 at 11:54; Status DC Aripiprazole (AbiLIFY) 10 mg BID PO Last administered on 03/21/17 08:19; Start 03/18/17 at 21:00; Stop 03/21/17 at 16:03; Status DC Aripiprazole (AbiLIFY) 10 mg BID PO Last administered on 03/03/17 08:14; Start 02/25/17 at 21:00; Stop 03/03/17 at 10:13; Status DC Aripiprazole (AbiLIFY) 15 mg BID PO Last administered on 03/08/17 08:08; Start 03/03/17 at 21:00; Stop 03/08/17 at 08:14; Status DC Aripiprazole (AbiLIFY) 15 mg BID PO ; Start 03/08/17 at 09:00; Stop 04/02/17 at 20:59; Status Cancel Aripiprazole (AbiLIFY) 15 mg BID PO Last administered on 03/10/17 08:03; Start 03/08/17 at 21:00; Stop 03/10/17 at 15:14; Status DC Aripiprazole (AbiLIFY) 15 mg BID PO Last administered on 03/18/17 08:37; Start 03/14/17 at 21:00; Stop 03/18/17 at 12:15; Status DC Aripiprazole (AbiLIFY) 15 mg BID PO Last administered on 03/25/17 08:05; Start 03/21/17 at 21:00; Stop 03/25/17 at 16:17; Status DC Aripiprazole (AbiLIFY) 20 mg BID PO Last administered on 03/14/17 08:05; Start 03/10/17 at 21:00; Stop 03/14/17 at 14:42; Status DC Aripiprazole (AbiLIFY) 20 mg BID PO Last administered on 04/11/17 07:48; Start 03/25/17 at 21:00; Stop 04/24/17 at 20:59 Benztropine Mesylate (Cogentin) 0.5 mg BID PO Last administered on 02/23/17 08: 43; Start 02/04/17 at 09:00; Stop 02/23/17 at 13:41; Status DC Benztropine Mesylate (Cogentin) 1 mg BID PO Last administered on 03/14/17 08: 05; Start 02/23/17 at 09:00; Stop 03/14/17 at 16:09; Status DC Benztropine Mesylate (Cogentin) 1 mg TID PO Last administered on 03/24/17 20:11 ; Start 03/14/17 at 21:00; Stop 03/25/17 at 08:59; Status DC Buspirone HCl (Buspar) 7.5 mg TID PO Last administered on 02/26/17 08:04; Start 02/04/17 at 16:00; Stop 02/26/17 at 12:48; Status DC Clozapine (Clozaril) 25 mg QHS PO Last administered on 03/20/17 21:41; Start at 21:00; Stop 03/21/17 at 08:59; Status DC Clozapine (Clozaril) 50 mg QAM PO Last administered on 03/18/17 08:37; Start 03/14/17 at 09:00; Stop 03/18/17 at 21:20; Status DC Clozapine (Clozaril) 50 mg QHS PO Last administered on 03/25/17 22:42; Start at 21:00; Stop 03/27/17 at 13:55; Status DC Clozapine (Clozaril) 75 mg QHS PO Last administered on 04/09/17 20:17; Start 03/27/17 at 21:00; Stop 04/10/17 at 14:36; Status DC Clozapine (Clozaril) 100 mg QHS PO Last administered on 04/09/17 20:17; Start 04/03/17 at 21:00; Stop 04/10/17 at 14:34; Status DC Clozapine (Clozaril) 150 mg QHS PO ; Start 04/10/17 at 21:00; Stop 04/17/17 at 20:59; Status Cancel Clozapine (Clozaril) 150 mg QHS PO ; Start 04/11/17 at 21:00; Stop 04/18/17 at 20:59 Clozapine (Clozaril) 200 mg QHS PO Last administered on 04/10/17 20:03; Start 04/10/17 at 21:00; Stop 04/11/17 at 11:18; Status DC Docusate Sodium (Colace) 100 mg BID PO Last administered on 04/11/17 07:48; Start 02/03/17 at 21:00; Stop 05/03/17 at 20:59 Gabapentin (Neurontin) 100 mg QAM PO Last administered on 02/24/17 08:14; Start 02/04/17 at 09:00; Stop 02/24/17 at 17:59; Status DC Gabapentin (Neurontin) 200 mg QAM PO Last administered on 03/19/17 08:04; Start 02/25/17 at 09:00; Stop 03/19/17 at 11:00; Status DC Gabapentin (Neurontin) 300 mg QHS PO Last administered on 04/10/17 20:03; Start 03/21/17 at 21:00; Stop 04/20/17 at 20:59 Gabapentin (Neurontin) 300 mg TID PO ; Start 03/21/17 at 21:00; Stop 03/21/17 at 21:00; Status DC Gabapentin (Neurontin) 400 mg QHS PO Last administered on 03/18/17 20:56; Start 02/04/17 at 21:00; Stop 03/19/17 at 11:00; Status DC Gabapentin (Neurontin) 600 mg BID@0900,1600 PO Last administered on 04/11/17 07:48; Start 03/21/17 at 16:00; Stop 04/20/17 at 15:59 Haloperidol Decanoate (Haldol Decanoate) 50 mg Q14D STAT IM ; Start 02/18/17 at 20:24; Stop 02/18/17 at 20:25; Status Cancel Haloperidol Decanoate (Haldol Decanoate) 50 mg Q14D@0900 IM Last administered on 04/01/17 10:33; Start 03/18/17 at 09:00; Stop 04/17/17 at 08:59 Haloperidol Decanoate (Haldol Decanoate) 50 mg Q14D@14 IM Last administered on 03/04/17 13:27; Start 02/04/17 at 14:00; Stop 03/06/17 at 13:59; Status DC Home Med (Med Rec Complete!) ASDIRECTED XX ; Start 02/03/17 at 12:15; Stop at 12:15; Status DC Lorazepam (Ativan) 1 mg Q8HP PRN PO ANXIETY/AGITATION Last administered on 20:52; Start 02/03/17 at 15:45; Stop 02/26/17 at 12:48; Status DC Lorazepam (Ativan) 1 mg TID PO Last administered on 03/19/17 08:04; Start 08/05 at 16:00; Stop 03/19/17 at 11:02; Status DC Lorazepam (Ativan) 1 mg TID PO Last administered on 03/26/17 08:06; Start at 21:00; Stop 03/26/17 at 11:14; Status DC Lorazepam (Ativan) 1 mg TID PRN PO Anxiety Last administered on 03/19/17 16:11 ; Start 03/19/17 at 11:15; Stop 03/21/17 at 16:07; Status DC Magnesium Hydroxide (Milk Of Magnesia) 30 ml DAILYPRN PRN PO CONSTIPATION; Start 02/03/17 at 15:45; Stop 03/05/17 at 15:44; Status DC Magnesium Hydroxide (Milk Of Magnesia) 30 ml DAILYPRN PRN PO CONSTIPATION Last administered on 03/24/17 15:50; Start 03/05/17 at 19:15; Stop 05/03/17 at 19:14 Mirtazapine (Remeron) 15 mg QHS PO Last administered on 02/27/17 21:37; Start 02/04/17 at 21:00; Stop 02/28/17 at 09:19; Status DC Mirtazapine (Remeron) 30 mg QHS PO Last administered on 03/18/17 20:56; Start 02/28/17 at 21:00; Stop 03/19/17 at 11:02; Status DC Mirtazapine (Remeron) 30 mg QHS PRN PO Insomnia; Start 03/19/17 at 11:15; Stop 03/21/17 at 16:05; Status DC Mirtazapine (Remeron) 45 mg QHSP PRN PO Insomnia Last administered on 20:35; Start 03/21/17 at 16:15; Stop 04/20/17 at 16:14 Miscellaneous (Unresolved Clarification Entry) SEE LABEL COMMENTS UNRESOLVED XX ; Start 03/07/17 at 00:01; Stop 03/10/17 at 15:08; Status DC Nicotine (Nicoderm Cq 21mg) 1 patch DAILY TD Last administered on 04/11/17 07: 49; Start 02/04/17 at 09:00; Stop 05/03/17 at 08:59 Olanzapine (ZyPREXA) 10 mg DAILY PO Last administered on 02/04/17 08:59; Start 02/03/17 at 09:00; Stop 02/04/17 at 14:20; Status DC Quetiapine Fumarate (SEROquel) 200 mg QHS PO ; Start 02/04/17 at 21:00; Stop at 13:42; Status DC Trazodone HCl (Desyrel) 50 mg QHSP PRN PO INSOMNIA; Start 02/03/17 at 16:45; Stop 03/05/17 at 16:44; Status Cancel Trazodone HCl (Desyrel) 50 mg QHSP PRN PO INSOMNIA Last administered on 21:49; Start 02/28/17 at 12:45; Stop 03/10/17 at 15:11; Status DC Venlafaxine HCl (Effexor Xr) 75 mg DAILY PO Last administered on 02/06/17 08:28; Start 02/04/17 at 09:00; Stop 02/06/17 at 18:02; Status DC Venlafaxine HCl (Effexor Xr) 150 mg BID PO Last administered on 04/11/17 07:48; Start 03/07/17 at 09:00; Stop 05/05/17 at 08:59 Venlafaxine HCl (Effexor Xr) 150 mg QHS PO Last administered on 02/23/17 21 :05; Start 02/07/17 at 21:00; Stop 02/24/17 at 17:59; Status DC Venlafaxine HCl (Effexor) 150 mg BID PO Last administered on 03/06/17 20:04; Start 02/24/17 at 21:00; Stop 03/06/17 at 23:26; Status DC Allergies Coded Allergies: Loxapine (Verified Allergy, Mild, 01/21/13) Thiothixene (Verified Allergy, Mild, 01/21/13) Fluphenazine (Verified Allergy, Unknown, 09/12/15) UNKNOWN [place]aboard (Verified Allergy, Unknown, UNKNOWN, 09/12/15) Meperidine (Verified Allergy, Unknown, UNKNOWN, 09/12/15) Phenothiazines (Verified Allergy, Unknown, UNKNOWN, 09/12/15) Thioridazine (Verified Allergy, Unknown, UNKNOWN, 09/12/15) KELVIN GARIBAY MD Apr 11, 2017 11:58
--- NOTE | 2017-04-11 12:26 | REP ---
REASON: Leukocytosis. PRIORS: None. Patchy opacities are seen in the left lower lobe. Lung mendez are hypoexpanded accentuating the finding. The heart is not enlarged, and the pleural angles are sharp. The osseous structures are within normal limits for the patient's age. IMPRESSION: Suspect developing left lower lobe pneumonia. Signed by Rickie De Luan DO 04/11/2017 01:42 P
[2017-04-11 13:22] VITALS: BP 112/58
[2017-04-11] MEDS ORDERED: cloZAPine 100 MG TAB (S0136) PO SCH (21:00)
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
[2017-04-12] MEDS ORDERED: ASPIRIN 81 MG CHEW TABLET PO SCH (09:00)
[2017-04-12] MEDS ORDERED: NICOTINE 21MG/24HR 1 EA TRANSDERMAL TD SCH (09:00)
[2017-04-12] MEDS ORDERED: VENL75CA2 PO ×2 (09:43→21:40)
[2017-04-12] MEDS ORDERED: CEFD300CAP PO (09:43)
[2017-04-12] MEDS ORDERED: MIRT15TA3 PO ×2 (09:43→21:40)
[2017-04-12] MEDS ORDERED: GABA-282 PO (09:43)
[2017-04-12] MEDS ORDERED: ARIP10TAB PO ×3 (09:43→21:40)
[2017-04-12 12:15] VITALS: BP 127/100
[2017-04-12] MEDS ORDERED: HALOPERIDOL 10 MG TAB PO STA ×2 (12:40→17:43)
[2017-04-12] MEDS ORDERED: diphenhydrAMINE 50 MG CAP PO STA ×2 (12:41→17:43)
[2017-04-12] MEDS ORDERED: HALOPERIDOL 10 MG TAB As Ordered ONE (12:41)
[2017-04-12] MEDS ORDERED: LORazepam 1 MG TAB As Ordered ONE (12:41)
[2017-04-12] MEDS ORDERED: diphenhydrAMINE 50 MG CAP As Ordered ONE (12:41)
[2017-04-12] MEDS ORDERED: LORazepam 1 MG TAB PO STA (12:42)
[2017-04-12 14:14] VITALS: BP 123/72
[2017-04-12] MEDS ORDERED: LORazepam 1 MG TAB PO PRN (14:30)
[2017-04-12] MEDS ORDERED: GABAPENTIN 300 MG CAP PO SCH ×2 (16:00→21:00)
[2017-04-12] MEDS ORDERED: LORazepam 2 MG TAB PO STA (17:43)
[2017-04-12] MEDS ORDERED: LORazepam 2 MG/ML VIAL (J2060) IM STA (17:45)
[2017-04-12] MEDS ORDERED: HALOPERIDOL 5 MG/ML VIAL (J1630) IM STA (17:45)
[2017-04-12] MEDS ORDERED: diphenhydrAMINE INJ 50MG/ML VIAL (J1200) IM STA (17:45)
[2017-04-12 18:00] VITALS: BP 140/80
[2017-04-12 18:58] VITALS: BP 140/80
[2017-04-12 20:06] VITALS: BP 122/75
--- NOTE | 2017-04-12 20:30 | MHIPNPDOC ---
[facility] Progress Note Progress Note DATE OF SERVICE: 04/12/17 HISTORY: Patient reported he has heart palpitations. Hospitalist was consulted because he has tachycardia,and since yesterday, an EKG was ordered but patient was transferred to medical floor where he was diagnosed with pneumonia. This afternoon pt. has said he felt palpitations, Hospitalist was consulted and he recommended metoprolol 25 mgs po BID and ECA 81 mgs. PO QD. Then, Dr. Rosado said he would accept the patient, we should wait to the Nursing gas distribution supervisor to assign a bed to pt. This job specification writer contacted Dr. Parikh who said would ask Dr. Melvin to check on him. Pt. has an abnormal EKH with sinus tachycardia, possible arial flutter, pattern consistent with pulmonary disease. Left anterior fascicular block. Nonspecific t wave abnormality. ASSESSMENT:Pt. is unstable, with a pneumonia, severe cardiac problems and needs to be transferred to the Medical floor. He has agreed on going to the medical floor. Dr. parikh intervention is appreciated. MANAGEMENT PLAN: Pt. is being transferred to medical floor. TIME SPENT: 40 minutes. Vital Signs Vital Signs Date Time Temp Pulse Resp B/P (MAP) Pulse Ox O2 Delivery O2 Flow Rate FiO2 04/12/17 20:06 122 22 122/75 (91) 95 Room Air 04/12/17 18:58 99.3 04/12/17 12:15 98 Current Medications Current Medications Acetaminophen (Tylenol Tab) 650 mg Q6HP PRN PO HEADACHE or DISCOMFORT Last administered on 04/11/17 06:17; Start 02/03/17 at 15:45; Stop 04/11/17 at 20:35 ; Status DC Acetaminophen (Tylenol Tab) 650 mg Q6HP PRN PO HEADACHE or DISCOMFORT; Start at 19:15; Stop 04/04/17 at 19:14; Status Cancel Al Hydrox/Mg Hydrox/Simethicone (Mylanta) 30 ml Q4HP PRN PO HEARTBURN/ INDIGESTION; Start 02/03/17 at 15:45; Stop 03/05/17 at 15:44; Status DC Al Hydrox/Mg Hydrox/Simethicone (Mylanta) 30 ml Q4HP PRN PO HEARTBURN/ INDIGESTION Last administered on 04/01/17 22:41; Start 03/05/17 at 19:30; Stop 04/11/17 at 20:35; Status DC Al Hydrox/Mg Hydrox/Simethicone (Mylanta) 30 ml Q4HP PRN PO HEARTBURN/ INDIGESTION; Start 03/06/17 at 10:00; Stop 04/04/17 at 09:59; Status Cancel Aripiprazole (AbiLIFY) 2.5 mg QHS PO Last administered on 02/16/17 20:07; Start 02/07/17 at 21:00; Stop 02/17/17 at 12:25; Status DC Aripiprazole (AbiLIFY) 5 mg QHS PO Last administered on 02/23/17 21:06; Start 02/17/17 at 21:00; Stop 02/24/17 at 17:48; Status DC Aripiprazole (AbiLIFY) 7.5 mg BID PO Last administered on 02/25/17 08:02; Start 02/24/17 at 21:00; Stop 02/25/17 at 11:54; Status DC Aripiprazole (AbiLIFY) 10 mg BID PO Last administered on 03/21/17 08:19; Start 03/18/17 at 21:00; Stop 03/21/17 at 16:03; Status DC Aripiprazole (AbiLIFY) 10 mg BID PO Last administered on 03/03/17 08:14; Start 02/25/17 at 21:00; Stop 03/03/17 at 10:13; Status DC Aripiprazole (AbiLIFY) 15 mg BID PO Last administered on 03/08/17 08:08; Start 03/03/17 at 21:00; Stop 03/08/17 at 08:14; Status DC Aripiprazole (AbiLIFY) 15 mg BID PO ; Start 03/08/17 at 09:00; Stop 04/02/17 at 20:59; Status Cancel Aripiprazole (AbiLIFY) 15 mg BID PO Last administered on 03/10/17 08:03; Start 03/08/17 at 21:00; Stop 03/10/17 at 15:14; Status DC Aripiprazole (AbiLIFY) 15 mg BID PO Last administered on 03/18/17 08:37; Start 03/14/17 at 21:00; Stop 03/18/17 at 12:15; Status DC Aripiprazole (AbiLIFY) 15 mg BID PO Last administered on 03/25/17 08:05; Start 03/21/17 at 21:00; Stop 03/25/17 at 16:17; Status DC Aripiprazole (AbiLIFY) 20 mg BID PO Last administered on 03/14/17 08:05; Start 03/10/17 at 21:00; Stop 03/14/17 at 14:42; Status DC Aripiprazole (AbiLIFY) 20 mg BID PO ; Start 04/12/17 at 21:00; Stop 05/12/17 at 20:59 Aripiprazole (AbiLIFY) 20 mg BID PO Last administered on 04/11/17 07:48; Start 03/25/17 at 21:00; Stop 04/11/17 at 20:35; Status DC Aspirin (Aspirin Chewable) 81 mg DAILY PO Last administered on 04/12/17 19:58 ; Start 04/12/17 at 09:00; Stop 05/12/17 at 08:59 Benztropine Mesylate (Cogentin) 0.5 mg BID PO Last administered on 02/23/17 08: 43; Start 02/04/17 at 09:00; Stop 02/23/17 at 13:41; Status DC Benztropine Mesylate (Cogentin) 1 mg BID PO Last administered on 03/14/17 08: 05; Start 02/23/17 at 09:00; Stop 03/14/17 at 16:09; Status DC Benztropine Mesylate (Cogentin) 1 mg TID PO Last administered on 03/24/17 20:11 ; Start 03/14/17 at 21:00; Stop 03/25/17 at 08:59; Status DC Buspirone HCl (Buspar) 7.5 mg TID PO Last administered on 02/26/17 08:04; Start 02/04/17 at 16:00; Stop 02/26/17 at 12:48; Status DC Cefdinir (Omnicef) 300 mg BID PO ; Start 04/12/17 at 21:00; Stop 04/19/17 at 20: 59 Clozapine (Clozaril) 25 mg QHS PO Last administered on 03/20/17 21:41; Start at 21:00; Stop 03/21/17 at 08:59; Status DC Clozapine (Clozaril) 50 mg QAM PO Last administered on 03/18/17 08:37; Start 03/14/17 at 09:00; Stop 03/18/17 at 21:20; Status DC Clozapine (Clozaril) 50 mg QHS PO Last administered on 03/25/17 22:42; Start at 21:00; Stop 03/27/17 at 13:55; Status DC Clozapine (Clozaril) 75 mg QHS PO Last administered on 04/09/17 20:17; Start 03/27/17 at 21:00; Stop 04/10/17 at 14:36; Status DC Clozapine (Clozaril) 100 mg QHS PO Last administered on 04/09/17 20:17; Start 04/03/17 at 21:00; Stop 04/10/17 at 14:34; Status DC Clozapine (Clozaril) 150 mg QHS PO ; Start 04/10/17 at 21:00; Stop 04/17/17 at 20:59; Status Cancel Clozapine (Clozaril) 150 mg QHS PO ; Start 04/11/17 at 21:00; Stop 04/11/17 at 21:00; Status Cancel Clozapine (Clozaril) 200 mg QHS PO Last administered on 04/10/17 20:03; Start 04/10/17 at 21:00; Stop 04/11/17 at 11:18; Status DC Diphenhydramine HCl (Benadryl) 50 mg STAT STAT IM ; Start 04/12/17 at 17:45; Stop 04/12/17 at 17:47; Status DC Diphenhydramine HCl (Benadryl) 50 mg STAT STAT PO Last administered on 13:04; Start 04/12/17 at 12:41; Stop 04/12/17 at 12:42; Status DC Diphenhydramine HCl (Benadryl) 50 mg STAT STAT PO Last administered on 17:51; Start 04/12/17 at 17:43; Stop 04/12/17 at 17:45; Status DC Docusate Sodium (Colace) 100 mg BID PO Last administered on 04/11/17 07:48; Start 02/03/17 at 21:00; Stop 04/11/17 at 20:35; Status DC Gabapentin (Neurontin) 100 mg QAM PO Last administered on 02/24/17 08:14; Start 02/04/17 at 09:00; Stop 02/24/17 at 17:59; Status DC Gabapentin (Neurontin) 200 mg QAM PO Last administered on 03/19/17 08:04; Start 02/25/17 at 09:00; Stop 03/19/17 at 11:00; Status DC Gabapentin (Neurontin) 300 mg QHS PO Last administered on 04/10/17 20:03; Start 03/21/17 at 21:00; Stop 04/11/17 at 20:35; Status DC Gabapentin (Neurontin) 300 mg QHS PO ; Start 04/12/17 at 21:00; Stop 05/12/17 at 20:59 Gabapentin (Neurontin) 300 mg TID PO ; Start 03/21/17 at 21:00; Stop 03/21/17 at 21:00; Status DC Gabapentin (Neurontin) 400 mg QHS PO Last administered on 03/18/17 20:56; Start 02/04/17 at 21:00; Stop 03/19/17 at 11:00; Status DC Gabapentin (Neurontin) 600 mg BID@0900,1600 PO Last administered on 04/11/17 07:48; Start 03/21/17 at 16:00; Stop 04/11/17 at 20:35; Status DC Gabapentin (Neurontin) 600 mg BID@0900,1600 PO Last administered on 04/12/17 14:54; Start 04/12/17 at 16:00; Stop 05/12/17 at 15:59 Haloperidol (Haldol) 10 mg STAT STAT IM ; Start 04/12/17 at 17:45; Stop at 17:47; Status DC Haloperidol (Haldol) 10 mg STAT STAT PO Last administered on 04/12/17 13:04; Start 04/12/17 at 12:40; Stop 04/12/17 at 12:42; Status DC Haloperidol (Haldol) 10 mg STAT STAT PO Last administered on 04/12/17 17:51; Start 04/12/17 at 17:43; Stop 04/12/17 at 17:45; Status DC Haloperidol Decanoate (Haldol Decanoate) 50 mg Q14D IM ; Start 04/15/17 at 09:00 ; Stop 05/15/17 at 08:59 Haloperidol Decanoate (Haldol Decanoate) 50 mg Q14D STAT IM ; Start 02/18/17 at 20:24; Stop 02/18/17 at 20:25; Status Cancel Haloperidol Decanoate (Haldol Decanoate) 50 mg Q14D@0900 IM Last administered on 04/01/17 10:33; Start 03/18/17 at 09:00; Stop 04/11/17 at 20:35; Status DC Haloperidol Decanoate (Haldol Decanoate) 50 mg Q14D@14 IM Last administered on 03/04/17 13:27; Start 02/04/17 at 14:00; Stop 03/06/17 at 13:59; Status DC Home Med (Med Rec Complete!) ASDIRECTED XX ; Start 02/03/17 at 12:15; Stop at 12:15; Status DC Lorazepam (Ativan) 1 mg Q6HP PRN PO ANXIETY; Start 04/12/17 at 14:30; Stop 04/19 at 14:29 Lorazepam (Ativan) 1 mg Q8HP PRN PO ANXIETY/AGITATION Last administered on 20:52; Start 02/03/17 at 15:45; Stop 02/26/17 at 12:48; Status DC Lorazepam (Ativan) 1 mg STAT STAT PO Last administered on 04/12/17 13:04; Start 04/12/17 at 12:42; Stop 04/12/17 at 12:44; Status DC Lorazepam (Ativan) 1 mg TID PO Last administered on 03/19/17 08:04; Start 08/05 at 16:00; Stop 03/19/17 at 11:02; Status DC Lorazepam (Ativan) 1 mg TID PO Last administered on 03/26/17 08:06; Start at 21:00; Stop 03/26/17 at 11:14; Status DC Lorazepam (Ativan) 1 mg TID PRN PO Anxiety Last administered on 03/19/17 16:11 ; Start 03/19/17 at 11:15; Stop 03/21/17 at 16:07; Status DC Lorazepam (Ativan) 2 mg STAT STAT IM ; Start 04/12/17 at 17:45; Stop 04/12/17 at 17:47; Status DC Lorazepam (Ativan) 2 mg STAT STAT PO Last administered on 04/12/17 17:51; Start 04/12/17 at 17:43; Stop 04/12/17 at 17:45; Status DC Magnesium Hydroxide (Milk Of Magnesia) 30 ml DAILYPRN PRN PO CONSTIPATION; Start 02/03/17 at 15:45; Stop 03/05/17 at 15:44; Status DC Magnesium Hydroxide (Milk Of Magnesia) 30 ml DAILYPRN PRN PO CONSTIPATION Last administered on 03/24/17 15:50; Start 03/05/17 at 19:15; Stop 04/11/17 at 20:35 ; Status DC Metoprolol Tartrate (Lopressor) 25 mg BID PO Last administered on 04/12/17 19: 43; Start 04/12/17 at 21:00; Stop 05/12/17 at 20:59 Mirtazapine (Remeron) 15 mg QHS PO Last administered on 02/27/17 21:37; Start 02/04/17 at 21:00; Stop 02/28/17 at 09:19; Status DC Mirtazapine (Remeron) 30 mg QHS PO Last administered on 03/18/17 20:56; Start 02/28/17 at 21:00; Stop 03/19/17 at 11:02; Status DC Mirtazapine (Remeron) 30 mg QHS PRN PO Insomnia; Start 03/19/17 at 11:15; Stop 03/21/17 at 16:05; Status DC Mirtazapine (Remeron) 45 mg QHS PO ; Start 04/12/17 at 21:00; Stop 05/12/17 at 20:59 Mirtazapine (Remeron) 45 mg QHSP PRN PO Insomnia Last administered on 20:35; Start 03/21/17 at 16:15; Stop 04/11/17 at 20:35; Status DC Miscellaneous (Unresolved Clarification Entry) SEE LABEL COMMENTS UNRESOLVED XX ; Start 03/07/17 at 00:01; Stop 03/10/17 at 15:08; Status DC Nicotine (Nicoderm Cq 21mg) 1 patch DAILY TD Last administered on 04/11/17 07: 49; Start 02/04/17 at 09:00; Stop 04/11/17 at 20:35; Status DC Nicotine (Nicoderm Cq 21mg) 1 patch DAILY TD Last administered on 04/12/17 14: 54; Start 04/12/17 at 09:00; Stop 05/12/17 at 08:59 Olanzapine (ZyPREXA) 10 mg DAILY PO Last administered on 02/04/17 08:59; Start 02/03/17 at 09:00; Stop 02/04/17 at 14:20; Status DC Quetiapine Fumarate (SEROquel) 200 mg QHS PO ; Start 02/04/17 at 21:00; Stop at 13:42; Status DC Trazodone HCl (Desyrel) 50 mg QHSP PRN PO INSOMNIA; Start 02/03/17 at 16:45; Stop 03/05/17 at 16:44; Status Cancel Trazodone HCl (Desyrel) 50 mg QHSP PRN PO INSOMNIA Last administered on 21:49; Start 02/28/17 at 12:45; Stop 03/10/17 at 15:11; Status DC Venlafaxine HCl (Effexor Xr) 75 mg DAILY PO Last administered on 02/06/17 08:28; Start 02/04/17 at 09:00; Stop 02/06/17 at 18:02; Status DC Venlafaxine HCl (Effexor Xr) 150 mg BID PO Last administered on 04/11/17 07:48; Start 03/07/17 at 09:00; Stop 04/11/17 at 20:35; Status DC Venlafaxine HCl (Effexor Xr) 150 mg BID PO ; Start 04/12/17 at 21:00; Stop 05/12/17 at 20:59 Venlafaxine HCl (Effexor Xr) 150 mg QHS PO Last administered on 02/23/17 21 :05; Start 02/07/17 at 21:00; Stop 02/24/17 at 17:59; Status DC Venlafaxine HCl (Effexor) 150 mg BID PO Last administered on 03/06/17 20:04; Start 02/24/17 at 21:00; Stop 03/06/17 at 23:26; Status DC Allergies Coded Allergies: Loxapine (Verified Allergy, Mild, 01/21/13) Thiothixene (Verified Allergy, Mild, 01/21/13) Fluphenazine (Verified Allergy, Unknown, 09/12/15) UNKNOWN [place] (Verified Allergy, Unknown, UNKNOWN, 09/12/15) Meperidine (Verified Allergy, Unknown, UNKNOWN, 09/12/15) Phenothiazines (Verified Allergy, Unknown, UNKNOWN, 09/12/15) Thioridazine (Verified Allergy, Unknown, UNKNOWN, 09/12/15) KELVIN GARIBAY MD Apr 12, 2017 20:30
[2017-04-12] MEDS ORDERED: CEFDINIR 300 MG CAP (OMNICEF) PO SCH (21:00)
[2017-04-12] MEDS ORDERED: MIRTAZAPINE 15 MG TAB PO SCH (21:00)
[2017-04-12] MEDS ORDERED: VENLAFAXINE **XR** 75MG CAPSULE PO SCH (21:00)
[2017-04-12] MEDS ORDERED: METOPROLOL TART 25 MG TABLET PO SCH (21:00)
[2017-04-12] MEDS ORDERED: ARIPiprazole 10 MG TAB PO SCH (21:00)
[2017-04-12] MEDS ORDERED: METO25TA4 PO (21:40)
[2017-04-12] MEDS ORDERED: HALO10AM IM (21:40)
--- NOTE | 2017-04-14 00:45 | ECGEPIP ---
Stationary ECG Study [facility] Test Date: 2017-04-11 Pat Name: RYAN FLORES Department: Room: [place] [address] Gender: M Nursing Assistant: NAYELI : 1965 Requested By: KELVIN Hankins Order Number: [id number] Reading MD: Eder Rahman Measurements Intervals [place] Rate: 107 P: 58 CO: 163 QRS: -42 QRSD: 98 T: 78 QT: 323 QTc: 432 Interpretive Statements SINUS TACHYCARDIA MARKED LEFT AXIS DEVIATION NONSPECIFIC T-WAVE ABNORMALITY Possible prior inferoposterior infarct Last received on 04/01/2017 at 17:11:03, no significant changes but faster heart rate Electronically Signed On 04-14-2017 0:45:27 EDT by Eder Rahman
--- NOTE | 2017-04-14 01:02 | ECGEPIP ---
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
[2017-04-14] MEDS ORDERED: ASPIRIN 325 MG TAB PO SCH (09:00)
[2017-04-14] MEDS ORDERED: VENL150C43 PO (15:21)
[2017-04-14] MEDS ORDERED: ACETAMINOPHEN TAB 650MG DOSE (2X325MG) PO PRN (15:45)
[2017-04-14] MEDS ORDERED: MOM 30ML SUSPENSION UDC PO PRN (15:45)
[2017-04-14] MEDS: GABAPENTIN 300 MG CAP PO SCH ×2 (16:00→20:11)
[2017-04-14] MEDS: CEFDINIR 300 MG CAP (OMNICEF) PO SCH (20:12)
[2017-04-14] MEDS: VENLAFAXINE 37.5 MG TAB PO SCH (20:12)
[2017-04-14] MEDS: ARIPiprazole 10 MG TAB PO SCH (20:12)
[2017-04-14] MEDS: MIRTAZAPINE 15 MG TAB PO SCH (20:14)
[2017-04-14] MEDS: METOPROLOL TART 25 MG TABLET PO SCH (20:14)
[2017-04-14] MEDS ORDERED: GABAPENTIN 300 MG CAP PO SCH (21:00)
--- NOTE | 2017-04-14 23:19 | IPN ---
DATE: 04/14/2017 Evaluated 52-year-old male known for paranoid schizophrenia who recently suffered a series of medical complications and for that reason he had to be transferred to the medical floor on Friday, as the patient was febrile, felt dizzy, was tachycardiac and had an elevated white blood cell count. The patient was transferred to the medical floor and he was given antibiotics, his white blood cell count was lowered from 20,000 to 10,700, but on Friday afternoon, he started complaining about palpitations and a medical consult and an EKG were done. The electrocardiogram (EKG) results showed he had Atrial Flutter. So, he had to be transferred again to the medical floor. He remained there until today, 04/14/2017, when was transferred back to the inpatient mental health unit. The patient has been medically cleared and is on metoprolol 25 mg by mouth twice a day and antibiotics for the left lower lobe pneumonia that was detected on Friday. MENTAL STATUS EXAMINATION: The patient is a 52-year-old male, who is alert, cooperative, dressed in personal clothes, whose speech is fluent and articulate. Language skills are fair. Thought processes is incoherent. Thought content is incoherent too. Abstract reasoning and computation are limited. Description of associations, a little bit loose. Description of abnormal or psychotic thoughts , he continues to have paranoid and persecutory delusions. Judgment and insight are very poor. Orientation: He is oriented to place and person only. Recent and remote memory are impaired due to cognitive deterioration secondary to mental illness. Attention span and concentration are fair. Language is fair. Fund of knowledge is fair. Mood "I'm okay". Affect is constricted. ASSESSMENT: The patient is still ill, he has pneumonia and he is on heart medications because recently was diagnosed with cardiac arrhythmia. He has been continued on his psychiatric medications that include venlafaxine 150 mg by mouth twice a day, Abilify 20 mg by mouth twice a day, Haldol decanoate 50 mg intramuscular every 14 days, Ativan 1 mg by mouth every 6 hours as needed for anxiety and agitation, Haldol 5 mg by mouth every 6 hours as needed for anxiety or agitation, Remeron 45 mg by mouth at bedtime (q.h.s.), gabapentin 600 mg by mouth twice a day and 300 mg by mouth at bedtime (q.h.s.). The patient is still on a waiting list to be transferred to [place] or [place] because he needs a higher level of care. Time spent: 20 minutes. TERRANCE
[2017-04-14] MEDS: MAALOX 30 ML SUSP *UDC PO PRN (23:36)
[2017-04-15] MEDS: GABAPENTIN 300 MG CAP PO SCH ×3 (08:05→20:09)
[2017-04-15] MEDS: VENLAFAXINE 37.5 MG TAB PO SCH ×2 (08:05→20:09)
[2017-04-15] MEDS: ARIPiprazole 10 MG TAB PO SCH ×2 (08:05→20:09)
[2017-04-15] MEDS: METOPROLOL TART 25 MG TABLET PO SCH ×2 (08:05→20:09)
[2017-04-15] MEDS: CEFDINIR 300 MG CAP (OMNICEF) PO SCH ×2 (08:05→20:08)
[2017-04-15] MEDS: NICOTINE 14 MG/24 HR TRANSDERMAL TD SCH (08:07)
[2017-04-15] MEDS ORDERED: ASPIRIN 325 MG TAB PO SCH (09:00)
[2017-04-15] MEDS: HALOPERIDOL DECANOATE 100 MG/ML VIAL (J1631) IM SCH (09:23)
[2017-04-15 11:32] VITALS: BP 130/75
[2017-04-15 18:24] VITALS: BP 119/77
[2017-04-15] MEDS: MIRTAZAPINE 15 MG TAB PO SCH (20:09)
--- NOTE | 2017-04-15 20:19 | IPN ---
DATE: 04/15/2017 52-year-old male with history of chronic paranoid schizophrenia and major depressive disorder who recently suffered a series of medical complications, including left lower lobe pneumonia and cardiac arrhythmia (atrial flutter). NEW TEST RESULTS: None. MENTAL STATUS EXAMINATION: Patient is a 52-year-old male who is alert, dressed in personal clothes with fair eye contact, cooperative. Speech is sparse but he is not tangential and he is not circumstantial. Language skills are fair. Thought processes including linear: Irrational. Thought content: Incoherent. Abstract reasoning and computation: Limited. Description of associations: Slightly loose. Description of abnormal or psychotic thoughts: Delusional thoughts, paranoid and persecutory. He denies auditory and visual hallucinations and denies suicidal and homicidal ideation. Judgment and insight are very poor. Orientation: Oriented to place and person only. Recent and remote memory: Limited. Attention span and concentration: Fair. Language: Fair. Fund of knowledge: Fair. Mood: "I'm okay but I'm tired." Affect: Constricted. ASSESSMENT: Patient continues to be paranoid, with persecutory delusions. He is not unstable or aggressive as he was last Friday. He is compliant with medications and has not had violent outbursts. Continues to be more isolated to his room, although he has attended some groups. MANAGEMENT PLAN: To continue with the same medications and to continue waiting for him to be transferred to [facility]. TIME SPENT: 20 minutes.
[2017-04-16] MEDS: VENLAFAXINE 37.5 MG TAB PO SCH ×2 (08:33→21:00)
[2017-04-16] MEDS: METOPROLOL TART 25 MG TABLET PO SCH ×2 (08:33→21:00)
[2017-04-16] MEDS: CEFDINIR 300 MG CAP (OMNICEF) PO SCH ×2 (08:33→21:00)
[2017-04-16] MEDS: ARIPiprazole 10 MG TAB PO SCH ×2 (08:33→21:00)
[2017-04-16] MEDS: NICOTINE 14 MG/24 HR TRANSDERMAL TD SCH (08:34)
[2017-04-16] MEDS: GABAPENTIN 300 MG CAP PO SCH ×4 (08:34→22:48)
--- NOTE | 2017-04-16 16:34 | MHIPNPDOC ---
[facility] Progress Note Progress Note DATE OF SERVICE: 04/16/17 INTERVAL HISTORY: Medication Side effects: He reports sleeping well, denies oversleeping for insomnia, denies all other medication side effects. Behavior: He has been attending groups, but continues to remain isolated, has not been irritable or presented behavioral problems Group Attendance: Attends groups Psychiatric Symptom change: Patient is still paranoide and delusional, although he's not aggressive as he was this past Friday. VITAL SIGNS: See below. NEW TEST RESULTS: See below CURRENT MEDICATIONS: See below. MENTAL STATUS EXAMINATION: General: Alert, cooperative, dressed in personal clothes, poor eye contact. Speech: Soft spoken, tangential Thought processes: Irrational Thought content: Not coherent Abstract reasoning, and computation: Unable to assess Description of associations: Loose Description of abnormal or psychotic thoughts: He has paranoid and persecutory delusions, bizarre thoughts and possibly auditory and visual hallucinations. Judgment: Poor Insight: Poor Orientation: Oriented to place and person only Recent and remote memory: Poor Attention span and concentration: Poor Fund of knowledge: Unable to assess Mood: Irritable Affect: Labile, irritable, angry DIAGNOSES: 1. Paranoid schizophrenia. 2. Major depressive disorder. ASSESSMENT: Patient continues to be delusional, although he hasn't presented behavioral problems. A control EKG and CBC with differential will be ordered by the end of the week. Patient still taking antibiotics for left lower lobe pneumonia and metoprolol for cardiac arrhythmia. MANAGEMENT PLAN: We'll continue with the same treatment plan. Patient is pending transfer to [facility] for long-term treatment and higher level of care. TIME SPENT: 20 minutes. Vital Signs Vital Signs Date Time Temp Pulse Resp B/P (MAP) Pulse Ox O2 Delivery O2 Flow Rate FiO2 04/16/17 10:15 Room Air 04/16/17 08:33 86 122/78 04/15/17 18:24 97.1 16 04/15/17 11:32 95 04/12/17 12:15 98 Current Medications Current Medications Acetaminophen (Tylenol Tab) 650 mg Q6HP PRN PO HEADACHE or DISCOMFORT Last administered on 04/11/17t 06:17; Start 02/03/17 at 15:45; Stop 04/11/17 at 20:35 ; Status DC Acetaminophen (Tylenol Tab) 650 mg Q6HP PRN PO HEADACHE or DISCOMFORT; Start at 19:15; Stop 04/04/17 at 19:14; Status Cancel Acetaminophen (Tylenol Tab) 650 mg Q6HP PRN PO HEADACHE or DISCOMFORT; Start at 15:45; Stop 05/14/17 at 15:44 Al Hydrox/Mg Hydrox/Simethicone (Mylanta) 30 ml Q4HP PRN PO HEARTBURN/ INDIGESTION; Start 02/03/17 at 15:45; Stop 03/05/17 at 15:44; Status DC Al Hydrox/Mg Hydrox/Simethicone (Mylanta) 30 ml Q4HP PRN PO HEARTBURN/ INDIGESTION Last administered on 04/01/17 22:41; Start 03/05/17 at 19:30; Stop 04/11/17 at 20:35; Status DC Al Hydrox/Mg Hydrox/Simethicone (Mylanta) 30 ml Q4HP PRN PO HEARTBURN/ INDIGESTION; Start 03/06/17 at 10:00; Stop 04/04/17 at 09:59; Status Cancel Al Hydrox/Mg Hydrox/Simethicone (Mylanta) 30 ml Q4HP PRN PO HEARTBURN/ INDIGESTION Last administered on 04/14/17 23:36; Start 04/14/17 at 15:45; Stop 05/14/17 at 15:44 Aripiprazole (AbiLIFY) 2.5 mg QHS PO Last administered on 02/16/17 20:07; Start 02/07/17 at 21:00; Stop 02/17/17 at 12:25; Status DC Aripiprazole (AbiLIFY) 5 mg QHS PO Last administered on 02/23/17 21:06; Start 02/17/17 at 21:00; Stop 02/24/17 at 17:48; Status DC Aripiprazole (AbiLIFY) 7.5 mg BID PO Last administered on 02/25/17 08:02; Start 02/24/17 at 21:00; Stop 02/25/17 at 11:54; Status DC Aripiprazole (AbiLIFY) 10 mg BID PO Last administered on 03/21/17 08:19; Start 03/18/17 at 21:00; Stop 03/21/17 at 16:03; Status DC Aripiprazole (AbiLIFY) 10 mg BID PO Last administered on 03/03/17 08:14; Start 02/25/17 at 21:00; Stop 03/03/17 at 10:13; Status DC Aripiprazole (AbiLIFY) 15 mg BID PO Last administered on 03/08/17 08:08; Start 03/03/17 at 21:00; Stop 03/08/17 at 08:14; Status DC Aripiprazole (AbiLIFY) 15 mg BID PO ; Start 03/08/17 at 09:00; Stop 04/02/17 at 20:59; Status Cancel Aripiprazole (AbiLIFY) 15 mg BID PO Last administered on 03/10/17 08:03; Start 03/08/17 at 21:00; Stop 03/10/17 at 15:14; Status DC Aripiprazole (AbiLIFY) 15 mg BID PO Last administered on 03/18/17 08:37; Start 03/14/17 at 21:00; Stop 03/18/17 at 12:15; Status DC Aripiprazole (AbiLIFY) 15 mg BID PO Last administered on 03/25/17 08:05; Start 03/21/17 at 21:00; Stop 03/25/17 at 16:17; Status DC Aripiprazole (AbiLIFY) 20 mg BID PO Last administered on 03/14/17 08:05; Start 03/10/17 at 21:00; Stop 03/14/17 at 14:42; Status DC Aripiprazole (AbiLIFY) 20 mg BID PO ; Start 04/12/17 at 21:00; Stop 04/12/17 at 21:59; Status DC Aripiprazole (AbiLIFY) 20 mg BID PO Last administered on 04/16/17 08:33; Start 04/14/17 at 21:00; Stop 05/14/17 at 20:59 Aripiprazole (AbiLIFY) 20 mg BID PO Last administered on 04/11/17 07:48; Start 03/25/17 at 21:00; Stop 04/11/17 at 20:35; Status DC Aspirin (Aspirin Chewable) 81 mg DAILY PO Last administered on 04/12/17 19:58 ; Start 04/12/17 at 09:00; Stop 04/12/17 at 21:59; Status DC Aspirin (Aspirin) 325 mg DAILY PO ; Start 04/14/17 at 09:00; Stop 04/14/17 at 16 :11; Status DC Aspirin (Aspirin) 325 mg DAILY PO ; Start 04/15/17 at 09:00; Stop 04/15/17 at 09 :00; Status DC Benztropine Mesylate (Cogentin) 0.5 mg BID PO Last administered on 02/23/17 08: 43; Start 02/04/17 at 09:00; Stop 02/23/17 at 13:41; Status DC Benztropine Mesylate (Cogentin) 1 mg BID PO Last administered on 03/14/17 08: 05; Start 02/23/17 at 09:00; Stop 03/14/17 at 16:09; Status DC Benztropine Mesylate (Cogentin) 1 mg TID PO Last administered on 03/24/17 20:11 ; Start 03/14/17 at 21:00; Stop 03/25/17 at 08:59; Status DC Buspirone HCl (Buspar) 7.5 mg TID PO Last administered on 02/26/17 08:04; Start 02/04/17 at 16:00; Stop 02/26/17 at 12:48; Status DC Cefdinir (Omnicef) 300 mg BID PO ; Start 04/12/17 at 21:00; Stop 04/12/17 at 21: 59; Status DC Cefdinir (Omnicef) 300 mg BID PO Last administered on 04/16/17 08:33; Start at 21:00; Stop 04/21/17 at 20:59 Clozapine (Clozaril) 25 mg QHS PO Last administered on 03/20/17 21:41; Start at 21:00; Stop 03/21/17 at 08:59; Status DC Clozapine (Clozaril) 50 mg QAM PO Last administered on 03/18/17 08:37; Start 03/14/17 at 09:00; Stop 03/18/17 at 21:20; Status DC Clozapine (Clozaril) 50 mg QHS PO Last administered on 03/25/17 22:42; Start at 21:00; Stop 03/27/17 at 13:55; Status DC Clozapine (Clozaril) 75 mg QHS PO Last administered on 04/09/17 20:17; Start 03/27/17 at 21:00; Stop 04/10/17 at 14:36; Status DC Clozapine (Clozaril) 100 mg QHS PO Last administered on 04/09/17 20:17; Start 04/03/17 at 21:00; Stop 04/10/17 at 14:34; Status DC Clozapine (Clozaril) 150 mg QHS PO ; Start 04/10/17 at 21:00; Stop 04/17/17 at 20:59; Status Cancel Clozapine (Clozaril) 150 mg QHS PO ; Start 04/11/17 at 21:00; Stop 04/11/17 at 21:00; Status Cancel Clozapine (Clozaril) 200 mg QHS PO Last administered on 04/10/17 20:03; Start 04/10/17 at 21:00; Stop 04/11/17 at 11:18; Status DC Diphenhydramine HCl (Benadryl) 50 mg STAT STAT IM ; Start 04/12/17 at 17:45; Stop 04/12/17 at 17:47; Status DC Diphenhydramine HCl (Benadryl) 50 mg STAT STAT PO Last administered on 13:04; Start 04/12/17 at 12:41; Stop 04/12/17 at 12:42; Status DC Diphenhydramine HCl (Benadryl) 50 mg STAT STAT PO Last administered on 17:51; Start 04/12/17 at 17:43; Stop 04/12/17 at 17:45; Status DC Docusate Sodium (Colace) 100 mg BID PO Last administered on 04/11/17 07:48; Start 02/03/17 at 21:00; Stop 04/11/17 at 20:35; Status DC Gabapentin (Neurontin) 100 mg QAM PO Last administered on 02/24/17 08:14; Start 02/04/17 at 09:00; Stop 02/24/17 at 17:59; Status DC Gabapentin (Neurontin) 200 mg QAM PO Last administered on 03/19/17 08:04; Start 02/25/17 at 09:00; Stop 03/19/17 at 11:00; Status DC Gabapentin (Neurontin) 300 mg QHS PO Last administered on 04/10/17 20:03; Start 03/21/17 at 21:00; Stop 04/11/17 at 20:35; Status DC Gabapentin (Neurontin) 300 mg QHS PO ; Start 04/12/17 at 21:00; Stop 04/12/17 at 21:59; Status DC Gabapentin (Neurontin) 300 mg QHS PO Last administered on 04/15/17 20:09; Start 04/14/17 at 21:00; Stop 05/14/17 at 20:59 Gabapentin (Neurontin) 300 mg TID PO ; Start 03/21/17 at 21:00; Stop 03/21/17 at 21:00; Status DC Gabapentin (Neurontin) 400 mg QHS PO Last administered on 03/18/17 20:56; Start 02/04/17 at 21:00; Stop 03/19/17 at 11:00; Status DC Gabapentin (Neurontin) 600 mg BID PO ; Start 04/14/17 at 21:00; Stop 04/14/17 at 21:00; Status DC Gabapentin (Neurontin) 600 mg BID@0900,1600 PO Last administered on 04/11/17 07:48; Start 03/21/17 at 16:00; Stop 04/11/17 at 20:35; Status DC Gabapentin (Neurontin) 600 mg BID@0900,1600 PO Last administered on 04/12/17 14:54; Start 04/12/17 at 16:00; Stop 04/12/17 at 21:59; Status DC Gabapentin (Neurontin) 600 mg BID@0900,1600 PO Last administered on 04/16/17 15:37; Start 04/14/17 at 16:00; Stop 05/14/17 at 15:59 Haloperidol (Haldol) 10 mg Q8HP PRN PO ANXIETY/AGITATION; Start 04/14/17 at 15: 45; Stop 05/14/17 at 15:44 Haloperidol (Haldol) 10 mg STAT STAT IM ; Start 04/12/17 at 17:45; Stop at 17:47; Status DC Haloperidol (Haldol) 10 mg STAT STAT PO Last administered on 04/12/17 13:04; Start 04/12/17 at 12:40; Stop 04/12/17 at 12:42; Status DC Haloperidol (Haldol) 10 mg STAT STAT PO Last administered on 04/12/17 17:51; Start 04/12/17 at 17:43; Stop 04/12/17 at 17:45; Status DC Haloperidol Decanoate (Haldol Decanoate) 50 mg Q14D IM Last administered on 09:23; Start 04/15/17 at 09:00; Stop 05/15/17 at 08:59 Haloperidol Decanoate (Haldol Decanoate) 50 mg Q14D STAT IM ; Start 02/18/17 at 20:24; Stop 02/18/17 at 20:25; Status Cancel Haloperidol Decanoate (Haldol Decanoate) 50 mg Q14D@0900 IM Last administered on 04/01/17 10:33; Start 03/18/17 at 09:00; Stop 04/11/17 at 20:35; Status DC Haloperidol Decanoate (Haldol Decanoate) 50 mg Q14D@14 IM Last administered on 03/04/17 13:27; Start 02/04/17 at 14:00; Stop 03/06/17 at 13:59; Status DC Home Med (Med Rec Complete!) ASDIRECTED XX ; Start 02/03/17 at 12:15; Stop at 12:15; Status DC Lorazepam (Ativan) 1 mg Q6HP PRN PO ANXIETY; Start 04/12/17 at 14:30; Stop at 21:59; Status DC Lorazepam (Ativan) 1 mg Q8HP PRN PO ANXIETY/AGITATION Last administered on 20:52; Start 02/03/17 at 15:45; Stop 02/26/17 at 12:48; Status DC Lorazepam (Ativan) 1 mg STAT STAT PO Last administered on 04/12/17 13:04; Start 04/12/17 at 12:42; Stop 04/12/17 at 12:44; Status DC Lorazepam (Ativan) 1 mg TID PO Last administered on 03/19/17 08:04; Start 08/05 at 16:00; Stop 03/19/17 at 11:02; Status DC Lorazepam (Ativan) 1 mg TID PO Last administered on 03/26/17 08:06; Start at 21:00; Stop 03/26/17 at 11:14; Status DC Lorazepam (Ativan) 1 mg TID PRN PO Anxiety Last administered on 03/19/17 16:11 ; Start 03/19/17 at 11:15; Stop 03/21/17 at 16:07; Status DC Lorazepam (Ativan) 2 mg STAT STAT IM ; Start 04/12/17 at 17:45; Stop 04/12/17 at 17:47; Status DC Lorazepam (Ativan) 2 mg STAT STAT PO Last administered on 04/12/17 17:51; Start 04/12/17 at 17:43; Stop 04/12/17 at 17:45; Status DC Lorazepam (Ativan) 4 mg Q8HP PRN PO ANXIETY AGITATION; Start 04/14/17 at 16:00 ; Stop 04/21/17 at 15:59 Magnesium Hydroxide (Milk Of Magnesia) 30 ml DAILYPRN PRN PO CONSTIPATION; Start 02/03/17 at 15:45; Stop 03/05/17 at 15:44; Status DC Magnesium Hydroxide (Milk Of Magnesia) 30 ml DAILYPRN PRN PO CONSTIPATION Last administered on 03/24/17 15:50; Start 03/05/17 at 19:15; Stop 04/11/17 at 20:35 ; Status DC Magnesium Hydroxide (Milk Of Magnesia) 30 ml DAILYPRN PRN PO CONSTIPATION; Start 04/14/17 at 15:45; Stop 05/14/17 at 15:44 Metoprolol Tartrate (Lopressor) 25 mg BID PO Last administered on 04/12/17 19: 43; Start 04/12/17 at 21:00; Stop 04/12/17 at 21:59; Status DC Metoprolol Tartrate (Lopressor) 25 mg BID PO Last administered on 04/16/17 08: 33; Start 04/14/17 at 21:00; Stop 05/14/17 at 20:59 Mirtazapine (Remeron) 15 mg QHS PO Last administered on 02/27/17 21:37; Start 02/04/17 at 21:00; Stop 02/28/17 at 09:19; Status DC Mirtazapine (Remeron) 30 mg QHS PO Last administered on 03/18/17 20:56; Start 02/28/17 at 21:00; Stop 03/19/17 at 11:02; Status DC Mirtazapine (Remeron) 30 mg QHS PRN PO Insomnia; Start 03/19/17 at 11:15; Stop 03/21/17 at 16:05; Status DC Mirtazapine (Remeron) 45 mg QHS PO ; Start 04/12/17 at 21:00; Stop 04/12/17 at 21:59; Status DC Mirtazapine (Remeron) 45 mg QHS PO Last administered on 04/15/17 20:09; Start 04/14/17 at 21:00; Stop 05/14/17 at 20:59 Mirtazapine (Remeron) 45 mg QHSP PRN PO Insomnia Last administered on 20:35; Start 03/21/17 at 16:15; Stop 04/11/17 at 20:35; Status DC Miscellaneous (Unresolved Clarification Entry) SEE LABEL COMMENTS UNRESOLVED XX ; Start 03/07/17 at 00:01; Stop 03/10/17 at 15:08; Status DC Nicotine (Nicoderm Cq 14mg) 1 patch DAILY TD Last administered on 04/16/17 08: 34; Start 04/15/17 at 09:00; Stop 05/15/17 at 08:59 Nicotine (Nicoderm Cq 21mg) 1 patch DAILY TD Last administered on 04/11/17 07: 49; Start 02/04/17 at 09:00; Stop 04/11/17 at 20:35; Status DC Nicotine (Nicoderm Cq 21mg) 1 patch DAILY TD Last administered on 04/12/17 14: 54; Start 04/12/17 at 09:00; Stop 04/12/17 at 21:59; Status DC Olanzapine (ZyPREXA) 10 mg DAILY PO Last administered on 02/04/17 08:59; Start 02/03/17 at 09:00; Stop 02/04/17 at 14:20; Status DC Quetiapine Fumarate (SEROquel) 200 mg QHS PO ; Start 02/04/17 at 21:00; Stop at 13:42; Status DC Trazodone HCl (Desyrel) 50 mg QHSP PRN PO INSOMNIA; Start 02/03/17 at 16:45; Stop 03/05/17 at 16:44; Status Cancel Trazodone HCl (Desyrel) 50 mg QHSP PRN PO INSOMNIA Last administered on 21:49; Start 02/28/17 at 12:45; Stop 03/10/17 at 15:11; Status DC Venlafaxine HCl (Effexor Xr) 75 mg DAILY PO Last administered on 02/06/17 08:28; Start 02/04/17 at 09:00; Stop 02/06/17 at 18:02; Status DC Venlafaxine HCl (Effexor Xr) 150 mg BID PO Last administered on 04/11/17 07:48; Start 03/07/17 at 09:00; Stop 04/11/17 at 20:35; Status DC Venlafaxine HCl (Effexor Xr) 150 mg BID PO ; Start 04/12/17 at 21:00; Stop 04/12/17 at 21:59; Status DC Venlafaxine HCl (Effexor Xr) 150 mg QHS PO Last administered on 02/23/17 21 :05; Start 02/07/17 at 21:00; Stop 02/24/17 at 17:59; Status DC Venlafaxine HCl (Effexor) 150 mg BID PO Last administered on 03/06/17 20:04; Start 02/24/17 at 21:00; Stop 03/06/17 at 23:26; Status DC Venlafaxine HCl (Effexor) 150 mg BID PO Last administered on 04/16/17 08:33; Start 04/14/17 at 21:00; Stop 05/14/17 at 20:59 Allergies Coded Allergies: Loxapine (Verified Allergy, Mild, 01/21/13) Thiothixene (Verified Allergy, Mild, 01/21/13) Fluphenazine (Verified Allergy, Unknown, 09/12/15) UNKNOWN Parker Strip (Verified Allergy, Unknown, UNKNOWN, 09/12/15) Meperidine (Verified Allergy, Unknown, UNKNOWN, 09/12/15) Phenothiazines (Verified Allergy, Unknown, UNKNOWN, 09/12/15) Thioridazine (Verified Allergy, Unknown, UNKNOWN, 09/12/15) KELVIN GARIBAY MD Apr 16, 2017 16:34
[2017-04-16 18:17] VITALS: BP 120/85
[2017-04-16] MEDS: LORazepam 2 MG TAB PO PRN (18:28)
[2017-04-16] MEDS: MIRTAZAPINE 15 MG TAB PO SCH (21:00)
[2017-04-17] MEDS: VENLAFAXINE 37.5 MG TAB PO SCH ×3 (08:00→21:20)
[2017-04-17] MEDS: ARIPiprazole 10 MG TAB PO SCH ×2 (08:00→21:00)
[2017-04-17] MEDS: CEFDINIR 300 MG CAP (OMNICEF) PO SCH ×2 (08:00→21:00)
[2017-04-17] MEDS: NICOTINE 14 MG/24 HR TRANSDERMAL TD SCH (08:00)
[2017-04-17] MEDS: GABAPENTIN 300 MG CAP PO SCH ×2 (08:00→21:00)
[2017-04-17] MEDS: METOPROLOL TART 25 MG TABLET PO SCH ×3 (08:00→21:22)
[2017-04-17 09:00] VITALS: BP 122/72
[2017-04-17 16:55] LABS: BASO # 0.1 K/mm3 (0.0-0.2); BASO % 1.3 % (0.0-1.0); EOS # 0.5 K/mm3 (0.0-0.50); LARGE UNSTAINED CELL # 0.2 K/mm3 (0.0-0.4); LARGE UNSTAINED CELL % 2.1 % (0.0-4.0); LYMPH # 2.8 K/mm3 (1.5-4.5); LYMPH % 26.4 % (24.0-44.0); MEAN CORPUSCULAR HEMOGLOBIN 31.2 pg (27.0-33.0); MEAN CORPUSCULAR HGB CONC 34.9 g/dl (32.0-36.5); MEAN CORPUSCULAR VOLUME 89.4 fl (80.0-96.0); MONO # 0.6 K/mm3 (0.0-0.8); MONO % 6.3 % (0.0-5.0); NEUTROPHILS # 5.7 K/mm3 (1.8-7.7); PLATELET COUNT, AUTOMATED 270 k/mm3 (150-450); RED CELL DISTRIBUTION WIDTH 12.8 % (11.5-14.5); WHITE BLOOD COUNT 9.7 K/mm3 (4.0-10.0)
[2017-04-17 17:16] LABS: ALBUMIN 3.2 GM/DL (3.2-5.2); ALBUMIN/GLOBULIN RATIO 0.91 (1.00-1.93); ALKALINE PHOSPHATASE 59 U/L (45-117); ALT/SGPT 36 U/L (12-78); ANION GAP 9 MEQ/L (8-16); AST/SGOT 19 U/L (15-37); BILIRUBIN,DIRECT < 0.1 MG/DL (0.0-0.2); BILIRUBIN,TOTAL 0.3 MG/DL (0.2-1.0); BLOOD UREA NITROGEN 15 MG/DL (7-18); CALCIUM LEVEL 8.7 MG/DL (8.5-10.1); CARBON DIOXIDE LEVEL 27 MEQ/L (21-32); CHLORIDE LEVEL 104 MEQ/L (98-107); CREATININE FOR GFR 0.89 MG/DL (0.70-1.30); GLOMERULAR FILTRATION RATE > 60.0 (>56); GLUCOSE, FASTING 143 MG/DL (70-105); SODIUM LEVEL 140 MEQ/L (136-145); TOTAL PROTEIN 6.7 GM/DL (6.4-8.2)
--- NOTE | 2017-04-17 20:31 | MHIPNPDOC ---
[facility] Progress Note Progress Note DATE OF SERVICE: 04/17/17 INTERVAL HISTORY: Medication Side effects: Denies Behavior: Isolated to his room, laying in bed in a semi position Group Attendance: Continues to attend groups regularly but doesnt participate in most of them Psychiatric Symptom change: Not aggressive, not violent. No improvement. VITAL SIGNS: See below. NEW TEST RESULTS: See below CURRENT MEDICATIONS: See below. MENTAL STATUS EXAMINATION: General: Alert, uncooperative ( does not want blood drawn, does not accept Chest x ray, only EEG), laying in bed with his face covered by blankets. Speech: Not circumstantial and not tangential Thought processes: Irrational Thought content: Incoherent Abstract reasoning, and computation: Limited Description of associations: Not loose Description of abnormal or psychotic thoughts: Delusional, paranoid and persecutory type. Denies auditory and visual hallucinations, denies suicidal and homicidal thoughts/plans. Judgment: Limited Insight: Limited Orientation: Oriented to place and person only Recent and remote memory: Poor Attention span and concentration: Fair Fund of knowledge: Fair Mood: "I'm doing okay" Affect: Constricted. DIAGNOSES: 1. Paranoid schizophrenia. 2. Major depressive disorder. ASSESSMENT: Patient has been seen more time in his room since he had several medical complications. More depressed. MANAGEMENT PLAN: Medications: Haldol Decanoate 50 mg IM every 2 weeks, gabapentin 600 mg by mouth twice a day and 300 mg by mouth daily at bedtime, mirtazapine 45 mg by mouth daily at bedtime and venlafaxine 150 mg by mouth twice a day Psychotherapy: He attends groups Social: Will provide patient's education about the importance of a social network. Misc: -- Disposition: Patient is still pending of being transferred to [facility]. TIME SPENT: 20 minutes. Vital Signs Vital Signs Date Time Temp Pulse Resp B/P (MAP) Pulse Ox O2 Delivery O2 Flow Rate FiO2 04/17/17 09:00 Room Air 04/17/17 09:00 98.1 95 16 122/72 (89) 96 04/12/17 12:15 98 Laboratory Data 24H Labs Laboratory Tests 2 04/17/17 16:12: White Blood Count 9.7, Red Blood Count 4.82, Hemoglobin 15.1, Hematocrit 43.1, Mean Corpuscular Volume 89.4, Mean Corpuscular Hemoglobin 31.2, Mean Corpuscular Hemoglobin Concent 34.9, Red Cell Distribution Width 12.8, Platelet Count 270, Neutrophils (%) (Auto) 59.0, Lymphocytes (%) (Auto) 26.4, Monocytes ( %) (Auto) 6.3H, Eosinophils (%) (Auto) 5.0H, Basophils (%) (Auto) 1.3H, Neutrophils # (Auto) 5.7, Lymphocytes # (Auto) 2.8, Monocytes # (Auto) 0.6, Eosinophils # (Auto) 0.5, Basophils # (Auto) 0.1, Large Unclassified Cells % 2.1 , Large Unclassified Cells # 0.2, Anion Gap 9, Glomerular Filtration Rate > 60.0 , Blood Urea Nitrogen 15, Creatinine 0.89, Sodium Level 140, Potassium Level 4.0 , Chloride Level 104, Carbon Dioxide Level 27, Calcium Level 8.7, Aspartate Amino Transf (AST/SGOT) 19, Alanine Aminotransferase (ALT/SGPT) 36, Alkaline Phosphatase 59, Total Bilirubin 0.3, Direct Bilirubin < 0.1, Total Protein 6.7, Albumin 3.2, Albumin/Globulin Ratio 0.91L CBC/BMP Laboratory Tests 04/17/17 16:12 Red Blood Count 4.82, Mean Corpuscular Volume 89.4, Mean Corpuscular Hemoglobin 31.2, Mean Corpuscular Hemoglobin Concent 34.9, Red Cell Distribution Width 12.8 , Neutrophils (%) (Auto) 59.0, Lymphocytes (%) (Auto) 26.4, Monocytes (%) (Auto ) 6.3 H, Eosinophils (%) (Auto) 5.0 H, Basophils (%) (Auto) 1.3 H, Neutrophils # (Auto) 5.7, Lymphocytes # (Auto) 2.8, Monocytes # (Auto) 0.6, Eosinophils # ( Auto) 0.5, Basophils # (Auto) 0.1, Calcium Level 8.7, Aspartate Amino Transf ( AST/SGOT) 19, Alanine Aminotransferase (ALT/SGPT) 36, Alkaline Phosphatase 59, Total Bilirubin 0.3, Direct Bilirubin < 0.1, Total Protein 6.7, Albumin 3.2 Current Medications Current Medications Acetaminophen (Tylenol Tab) 650 mg Q6HP PRN PO HEADACHE or DISCOMFORT Last administered on 04/11/17t 06:17; Start 02/03/17 at 15:45; Stop 04/11/17 at 20:35 ; Status DC Acetaminophen (Tylenol Tab) 650 mg Q6HP PRN PO HEADACHE or DISCOMFORT; Start at 19:15; Stop 04/04/17 at 19:14; Status Cancel Acetaminophen (Tylenol Tab) 650 mg Q6HP PRN PO HEADACHE or DISCOMFORT; Start at 15:45; Stop 05/14/17 at 15:44 Al Hydrox/Mg Hydrox/Simethicone (Mylanta) 30 ml Q4HP PRN PO HEARTBURN/ INDIGESTION; Start 02/03/17 at 15:45; Stop 03/05/17 at 15:44; Status DC Al Hydrox/Mg Hydrox/Simethicone (Mylanta) 30 ml Q4HP PRN PO HEARTBURN/ INDIGESTION Last administered on 04/01/17 22:41; Start 03/05/17 at 19:30; Stop 04/11/17 at 20:35; Status DC Al Hydrox/Mg Hydrox/Simethicone (Mylanta) 30 ml Q4HP PRN PO HEARTBURN/ INDIGESTION; Start 03/06/17 at 10:00; Stop 04/04/17 at 09:59; Status Cancel Al Hydrox/Mg Hydrox/Simethicone (Mylanta) 30 ml Q4HP PRN PO HEARTBURN/ INDIGESTION Last administered on 04/14/17 23:36; Start 04/14/17 at 15:45; Stop 05/14/17 at 15:44 Aripiprazole (AbiLIFY) 2.5 mg QHS PO Last administered on 02/16/17 20:07; Start 02/07/17 at 21:00; Stop 02/17/17 at 12:25; Status DC Aripiprazole (AbiLIFY) 5 mg QHS PO Last administered on 02/23/17 21:06; Start 02/17/17 at 21:00; Stop 02/24/17 at 17:48; Status DC Aripiprazole (AbiLIFY) 7.5 mg BID PO Last administered on 02/25/17 08:02; Start 02/24/17 at 21:00; Stop 02/25/17 at 11:54; Status DC Aripiprazole (AbiLIFY) 10 mg BID PO Last administered on 03/21/17 08:19; Start 03/18/17 at 21:00; Stop 03/21/17 at 16:03; Status DC Aripiprazole (AbiLIFY) 10 mg BID PO Last administered on 03/03/17 08:14; Start 02/25/17 at 21:00; Stop 03/03/17 at 10:13; Status DC Aripiprazole (AbiLIFY) 15 mg BID PO Last administered on 03/08/17 08:08; Start 03/03/17 at 21:00; Stop 03/08/17 at 08:14; Status DC Aripiprazole (AbiLIFY) 15 mg BID PO ; Start 03/08/17 at 09:00; Stop 04/02/17 at 20:59; Status Cancel Aripiprazole (AbiLIFY) 15 mg BID PO Last administered on 03/10/17 08:03; Start 03/08/17 at 21:00; Stop 03/10/17 at 15:14; Status DC Aripiprazole (AbiLIFY) 15 mg BID PO Last administered on 03/18/17 08:37; Start 03/14/17 at 21:00; Stop 03/18/17 at 12:15; Status DC Aripiprazole (AbiLIFY) 15 mg BID PO Last administered on 03/25/17 08:05; Start 03/21/17 at 21:00; Stop 03/25/17 at 16:17; Status DC Aripiprazole (AbiLIFY) 20 mg BID PO Last administered on 03/14/17 08:05; Start 03/10/17 at 21:00; Stop 03/14/17 at 14:42; Status DC Aripiprazole (AbiLIFY) 20 mg BID PO ; Start 04/12/17 at 21:00; Stop 04/12/17 at 21:59; Status DC Aripiprazole (AbiLIFY) 20 mg BID PO Last administered on 04/17/17 08:00; Start 04/14/17 at 21:00; Stop 05/14/17 at 20:59 Aripiprazole (AbiLIFY) 20 mg BID PO Last administered on 04/11/17 07:48; Start 03/25/17 at 21:00; Stop 04/11/17 at 20:35; Status DC Aspirin (Aspirin Chewable) 81 mg DAILY PO Last administered on 04/12/17 19:58 ; Start 04/12/17 at 09:00; Stop 04/12/17 at 21:59; Status DC Aspirin (Aspirin) 325 mg DAILY PO ; Start 04/14/17 at 09:00; Stop 04/14/17 at 16 :11; Status DC Aspirin (Aspirin) 325 mg DAILY PO ; Start 04/15/17 at 09:00; Stop 04/15/17 at 09 :00; Status DC Benztropine Mesylate (Cogentin) 0.5 mg BID PO Last administered on 02/23/17 08: 43; Start 02/04/17 at 09:00; Stop 02/23/17 at 13:41; Status DC Benztropine Mesylate (Cogentin) 1 mg BID PO Last administered on 03/14/17 08: 05; Start 02/23/17 at 09:00; Stop 03/14/17 at 16:09; Status DC Benztropine Mesylate (Cogentin) 1 mg TID PO Last administered on 03/24/17 20:11 ; Start 03/14/17 at 21:00; Stop 03/25/17 at 08:59; Status DC Buspirone HCl (Buspar) 7.5 mg TID PO Last administered on 02/26/17 08:04; Start 02/04/17 at 16:00; Stop 02/26/17 at 12:48; Status DC Cefdinir (Omnicef) 300 mg BID PO ; Start 04/12/17 at 21:00; Stop 04/12/17 at 21: 59; Status DC Cefdinir (Omnicef) 300 mg BID PO Last administered on 04/17/17 08:00; Start at 21:00; Stop 04/21/17 at 20:59 Clozapine (Clozaril) 25 mg QHS PO Last administered on 03/20/17 21:41; Start at 21:00; Stop 03/21/17 at 08:59; Status DC Clozapine (Clozaril) 50 mg QAM PO Last administered on 03/18/17 08:37; Start 03/14/17 at 09:00; Stop 03/18/17 at 21:20; Status DC Clozapine (Clozaril) 50 mg QHS PO Last administered on 03/25/17 22:42; Start at 21:00; Stop 03/27/17 at 13:55; Status DC Clozapine (Clozaril) 75 mg QHS PO Last administered on 04/09/17 20:17; Start 03/27/17 at 21:00; Stop 04/10/17 at 14:36; Status DC Clozapine (Clozaril) 100 mg QHS PO Last administered on 04/09/17 20:17; Start 04/03/17 at 21:00; Stop 04/10/17 at 14:34; Status DC Clozapine (Clozaril) 150 mg QHS PO ; Start 04/10/17 at 21:00; Stop 04/17/17 at 20:59; Status Cancel Clozapine (Clozaril) 150 mg QHS PO ; Start 04/11/17 at 21:00; Stop 04/11/17 at 21:00; Status Cancel Clozapine (Clozaril) 200 mg QHS PO Last administered on 04/10/17 20:03; Start 04/10/17 at 21:00; Stop 04/11/17 at 11:18; Status DC Diphenhydramine HCl (Benadryl) 50 mg STAT STAT IM ; Start 04/12/17 at 17:45; Stop 04/12/17 at 17:47; Status DC Diphenhydramine HCl (Benadryl) 50 mg STAT STAT PO Last administered on 13:04; Start 04/12/17 at 12:41; Stop 04/12/17 at 12:42; Status DC Diphenhydramine HCl (Benadryl) 50 mg STAT STAT PO Last administered on 17:51; Start 04/12/17 at 17:43; Stop 04/12/17 at 17:45; Status DC Docusate Sodium (Colace) 100 mg BID PO Last administered on 04/11/17 07:48; Start 02/03/17 at 21:00; Stop 04/11/17 at 20:35; Status DC Gabapentin (Neurontin) 100 mg QAM PO Last administered on 02/24/17 08:14; Start 02/04/17 at 09:00; Stop 02/24/17 at 17:59; Status DC Gabapentin (Neurontin) 200 mg QAM PO Last administered on 03/19/17 08:04; Start 02/25/17 at 09:00; Stop 03/19/17 at 11:00; Status DC Gabapentin (Neurontin) 300 mg QHS PO Last administered on 04/10/17 20:03; Start 03/21/17 at 21:00; Stop 04/11/17 at 20:35; Status DC Gabapentin (Neurontin) 300 mg QHS PO ; Start 04/12/17 at 21:00; Stop 04/12/17 at 21:59; Status DC Gabapentin (Neurontin) 300 mg QHS PO Last administered on 04/15/17 20:09; Start 04/14/17 at 21:00; Stop 05/14/17 at 20:59 Gabapentin (Neurontin) 300 mg TID PO ; Start 03/21/17 at 21:00; Stop 03/21/17 at 21:00; Status DC Gabapentin (Neurontin) 400 mg QHS PO Last administered on 03/18/17 20:56; Start 02/04/17 at 21:00; Stop 03/19/17 at 11:00; Status DC Gabapentin (Neurontin) 600 mg BID PO ; Start 04/14/17 at 21:00; Stop 04/14/17 at 21:00; Status DC Gabapentin (Neurontin) 600 mg BID@0900,1600 PO Last administered on 04/11/17 07:48; Start 03/21/17 at 16:00; Stop 04/11/17 at 20:35; Status DC Gabapentin (Neurontin) 600 mg BID@0900,1600 PO Last administered on 04/12/17 14:54; Start 04/12/17 at 16:00; Stop 04/12/17 at 21:59; Status DC Gabapentin (Neurontin) 600 mg BID@0900,1600 PO Last administered on 04/17/17 08:00; Start 04/14/17 at 16:00; Stop 05/14/17 at 15:59 Haloperidol (Haldol) 10 mg Q8HP PRN PO ANXIETY/AGITATION; Start 04/14/17 at 15: 45; Stop 05/14/17 at 15:44 Haloperidol (Haldol) 10 mg STAT STAT IM ; Start 04/12/17 at 17:45; Stop at 17:47; Status DC Haloperidol (Haldol) 10 mg STAT STAT PO Last administered on 04/12/17 13:04; Start 04/12/17 at 12:40; Stop 04/12/17 at 12:42; Status DC Haloperidol (Haldol) 10 mg STAT STAT PO Last administered on 04/12/17 17:51; Start 04/12/17 at 17:43; Stop 04/12/17 at 17:45; Status DC Haloperidol Decanoate (Haldol Decanoate) 50 mg Q14D IM Last administered on 09:23; Start 04/15/17 at 09:00; Stop 05/15/17 at 08:59 Haloperidol Decanoate (Haldol Decanoate) 50 mg Q14D STAT IM ; Start 02/18/17 at 20:24; Stop 02/18/17 at 20:25; Status Cancel Haloperidol Decanoate (Haldol Decanoate) 50 mg Q14D@0900 IM Last administered on 04/01/17 10:33; Start 03/18/17 at 09:00; Stop 04/11/17 at 20:35; Status DC Haloperidol Decanoate (Haldol Decanoate) 50 mg Q14D@14 IM Last administered on 03/04/17 13:27; Start 02/04/17 at 14:00; Stop 03/06/17 at 13:59; Status DC Home Med (Med Rec Complete!) ASDIRECTED XX ; Start 02/03/17 at 12:15; Stop at 12:15; Status DC Lorazepam (Ativan) 1 mg Q6HP PRN PO ANXIETY; Start 04/12/17 at 14:30; Stop at 21:59; Status DC Lorazepam (Ativan) 1 mg Q8HP PRN PO ANXIETY/AGITATION Last administered on 20:52; Start 02/03/17 at 15:45; Stop 02/26/17 at 12:48; Status DC Lorazepam (Ativan) 1 mg STAT STAT PO Last administered on 04/12/17 13:04; Start 04/12/17 at 12:42; Stop 04/12/17 at 12:44; Status DC Lorazepam (Ativan) 1 mg TID PO Last administered on 03/19/17 08:04; Start 08/05 at 16:00; Stop 03/19/17 at 11:02; Status DC Lorazepam (Ativan) 1 mg TID PO Last administered on 03/26/17 08:06; Start at 21:00; Stop 03/26/17 at 11:14; Status DC Lorazepam (Ativan) 1 mg TID PRN PO Anxiety Last administered on 03/19/17 16:11 ; Start 03/19/17 at 11:15; Stop 03/21/17 at 16:07; Status DC Lorazepam (Ativan) 2 mg STAT STAT IM ; Start 04/12/17 at 17:45; Stop 04/12/17 at 17:47; Status DC Lorazepam (Ativan) 2 mg STAT STAT PO Last administered on 04/12/17 17:51; Start 04/12/17 at 17:43; Stop 04/12/17 at 17:45; Status DC Lorazepam (Ativan) 4 mg Q8HP PRN PO ANXIETY AGITATION Last administered on 04/16 18:28; Start 04/14/17 at 16:00; Stop 04/21/17 at 15:59 Magnesium Hydroxide (Milk Of Magnesia) 30 ml DAILYPRN PRN PO CONSTIPATION; Start 02/03/17 at 15:45; Stop 03/05/17 at 15:44; Status DC Magnesium Hydroxide (Milk Of Magnesia) 30 ml DAILYPRN PRN PO CONSTIPATION Last administered on 03/24/17 15:50; Start 03/05/17 at 19:15; Stop 04/11/17 at 20:35 ; Status DC Magnesium Hydroxide (Milk Of Magnesia) 30 ml DAILYPRN PRN PO CONSTIPATION; Start 04/14/17 at 15:45; Stop 05/14/17 at 15:44 Metoprolol Tartrate (Lopressor) 25 mg BID PO Last administered on 04/12/17 19: 43; Start 04/12/17 at 21:00; Stop 04/12/17 at 21:59; Status DC Metoprolol Tartrate (Lopressor) 25 mg BID PO Last administered on 04/17/17 08: 00; Start 04/14/17 at 21:00; Stop 05/14/17 at 20:59 Mirtazapine (Remeron) 15 mg QHS PO Last administered on 02/27/17 21:37; Start 02/04/17 at 21:00; Stop 02/28/17 at 09:19; Status DC Mirtazapine (Remeron) 30 mg QHS PO Last administered on 03/18/17 20:56; Start 02/28/17 at 21:00; Stop 03/19/17 at 11:02; Status DC Mirtazapine (Remeron) 30 mg QHS PRN PO Insomnia; Start 03/19/17 at 11:15; Stop 03/21/17 at 16:05; Status DC Mirtazapine (Remeron) 45 mg QHS PO ; Start 04/12/17 at 21:00; Stop 04/12/17 at 21:59; Status DC Mirtazapine (Remeron) 45 mg QHS PO Last administered on 04/15/17 20:09; Start 04/14/17 at 21:00; Stop 05/14/17 at 20:59 Mirtazapine (Remeron) 45 mg QHSP PRN PO Insomnia Last administered on 20:35; Start 03/21/17 at 16:15; Stop 04/11/17 at 20:35; Status DC Miscellaneous (Unresolved Clarification Entry) SEE LABEL COMMENTS UNRESOLVED XX ; Start 03/07/17 at 00:01; Stop 03/10/17 at 15:08; Status DC Nicotine (Nicoderm Cq 14mg) 1 patch DAILY TD Last administered on 04/17/17 08: 00; Start 04/15/17 at 09:00; Stop 05/15/17 at 08:59 Nicotine (Nicoderm Cq 21mg) 1 patch DAILY TD Last administered on 04/11/17 07: 49; Start 02/04/17 at 09:00; Stop 04/11/17 at 20:35; Status DC Nicotine (Nicoderm Cq 21mg) 1 patch DAILY TD Last administered on 04/12/17 14: 54; Start 04/12/17 at 09:00; Stop 04/12/17 at 21:59; Status DC Olanzapine (ZyPREXA) 10 mg DAILY PO Last administered on 02/04/17 08:59; Start 02/03/17 at 09:00; Stop 02/04/17 at 14:20; Status DC Quetiapine Fumarate (SEROquel) 200 mg QHS PO ; Start 02/04/17 at 21:00; Stop at 13:42; Status DC Trazodone HCl (Desyrel) 50 mg QHSP PRN PO INSOMNIA; Start 02/03/17 at 16:45; Stop 03/05/17 at 16:44; Status Cancel Trazodone HCl (Desyrel) 50 mg QHSP PRN PO INSOMNIA Last administered on 21:49; Start 02/28/17 at 12:45; Stop 03/10/17 at 15:11; Status DC Venlafaxine HCl (Effexor Xr) 75 mg DAILY PO Last administered on 02/06/17 08:28; Start 02/04/17 at 09:00; Stop 02/06/17 at 18:02; Status DC Venlafaxine HCl (Effexor Xr) 150 mg BID PO Last administered on 04/11/17 07:48; Start 03/07/17 at 09:00; Stop 04/11/17 at 20:35; Status DC Venlafaxine HCl (Effexor Xr) 150 mg BID PO ; Start 04/12/17 at 21:00; Stop 04/12/17 at 21:59; Status DC Venlafaxine HCl (Effexor Xr) 150 mg QHS PO Last administered on 02/23/17 21 :05; Start 02/07/17 at 21:00; Stop 02/24/17 at 17:59; Status DC Venlafaxine HCl (Effexor) 150 mg BID PO Last administered on 03/06/17 20:04; Start 02/24/17 at 21:00; Stop 03/06/17 at 23:26; Status DC Venlafaxine HCl (Effexor) 150 mg BID PO Last administered on 04/17/17 08:00; Start 04/14/17 at 21:00; Stop 05/14/17 at 20:59 Allergies Coded Allergies: Loxapine (Verified Allergy, Mild, 01/21/13) Thiothixene (Verified Allergy, Mild, 01/21/13) Fluphenazine (Verified Allergy, Unknown, 09/12/15) UNKNOWN [place] (Verified Allergy, Unknown, UNKNOWN, 09/12/15) Meperidine (Verified Allergy, Unknown, UNKNOWN, 09/12/15) Phenothiazines (Verified Allergy, Unknown, UNKNOWN, 09/12/15) Thioridazine (Verified Allergy, Unknown, UNKNOWN, 09/12/15) KELVIN GARIBAY MD Apr 17, 2017 20:31
[2017-04-17] MEDS: MIRTAZAPINE 15 MG TAB PO SCH (21:12)
[2017-04-18 06:00] VITALS: BP 120/65
[2017-04-18] MEDS: VENLAFAXINE 37.5 MG TAB PO SCH ×2 (08:33→21:21)
[2017-04-18] MEDS: CEFDINIR 300 MG CAP (OMNICEF) PO SCH ×2 (08:33→21:21)
[2017-04-18] MEDS: GABAPENTIN 300 MG CAP PO SCH ×3 (08:34→21:22)
[2017-04-18] MEDS: NICOTINE 14 MG/24 HR TRANSDERMAL TD SCH (08:34)
[2017-04-18] MEDS: METOPROLOL TART 25 MG TABLET PO SCH ×2 (08:34→21:21)
[2017-04-18] MEDS: ARIPiprazole 10 MG TAB PO SCH ×2 (08:34→21:21)
--- NOTE | 2017-04-18 13:49 | ECGEPIP ---
Stationary ECG Study [facility] Test Date: 2017-04-17 Pat Name: RYAN FLORES Department: Room: [place] [address] Gender: M [employer]: : 1965 Requested By: KELVIN Hankins Order Number: [id number] Reading MD: Ella Lafleur Measurements Intervals [place] Rate: 91 P: 57 NE: 163 QRS: -35 QRSD: 96 T: 69 QT: 346 QTc: 427 Interpretive Statements SINUS RHYTHM MARKED LEFT AXIS DEVIATION NONSPECIFIC T-WAVE ABNORMALITY SIMILAR 04/12/17 BUT FOR SLOWER HR Electronically Signed On 04-18-2017 13:49:19 EDT by Ella Lafleur
[2017-04-18 18:31] VITALS: BP 102/58
--- NOTE | 2017-04-18 21:00 | MHIPNPDOC ---
[facility] Progress Note Progress Note DATE OF SERVICE: 04/18/17 INTERVAL HISTORY: Medication Side effects: Denies medication side effects Behavior: Isolated to his room, more talkative today. Group Attendance: Attending groups Psychiatric Symptom change: No major changes. VITAL SIGNS: See below. NEW TEST RESULTS: See below CURRENT MEDICATIONS: See below. MENTAL STATUS EXAMINATION: General: Alert, cooperative, less guarded today. Speech: Circumstantial Thought processes: Irrational Thought content: Not coherent Abstract reasoning, and computation: Limited Description of associations: Slightly loose Description of abnormal or psychotic thoughts: Delusional, paranoid and persecutory type. Denies auditory and visual hallucinations, denies suicidal and homicidal thoughts. Judgment: Poor Insight: Poor Orientation: Oriented to place and person only Recent and remote memory: Poor Attention span and concentration: Fair Fund of knowledge: Fair Mood: "I'm O.K" Affect: Constricted. DIAGNOSES: 1. Paranoid schizophrenia. 2. Major depressive disorder. ASSESSMENT: Patient has been seen more time in his room since he had several medical complications. More depressed. MANAGEMENT PLAN: Medications: Haldol Decanoate 50 mg IM every 2 weeks, gabapentin 600 mg by mouth twice a day and 300 mg by mouth daily at bedtime, mirtazapine 45 mg by mouth daily at bedtime and venlafaxine 150 mg by mouth twice a day Psychotherapy: He attends groups. Will be encouraged to participate. Social: Will provide patient's education about the importance of a social network. Misc: -- Disposition: Patient waiting for available bed at [facility]. TIME SPENT: 20 minutes. Vital Signs Vital Signs Date Time Temp Pulse Resp B/P (MAP) Pulse Ox O2 Delivery O2 Flow Rate FiO2 04/18/17 18:31 98.3 80 16 102/58 (73) 04/17/17 09:00 Room Air 04/17/17 09:00 96 04/12/17 12:15 98 Current Medications Current Medications Acetaminophen (Tylenol Tab) 650 mg Q6HP PRN PO HEADACHE or DISCOMFORT Last administered on 04/11/17t 06:17; Start 02/03/17 at 15:45; Stop 04/11/17 at 20:35 ; Status DC Acetaminophen (Tylenol Tab) 650 mg Q6HP PRN PO HEADACHE or DISCOMFORT; Start at 19:15; Stop 04/04/17 at 19:14; Status Cancel Acetaminophen (Tylenol Tab) 650 mg Q6HP PRN PO HEADACHE or DISCOMFORT; Start at 15:45; Stop 05/14/17 at 15:44 Al Hydrox/Mg Hydrox/Simethicone (Mylanta) 30 ml Q4HP PRN PO HEARTBURN/ INDIGESTION; Start 02/03/17 at 15:45; Stop 03/05/17 at 15:44; Status DC Al Hydrox/Mg Hydrox/Simethicone (Mylanta) 30 ml Q4HP PRN PO HEARTBURN/ INDIGESTION Last administered on 04/01/17 22:41; Start 03/05/17 at 19:30; Stop 04/11/17 at 20:35; Status DC Al Hydrox/Mg Hydrox/Simethicone (Mylanta) 30 ml Q4HP PRN PO HEARTBURN/ INDIGESTION; Start 03/06/17 at 10:00; Stop 04/04/17 at 09:59; Status Cancel Al Hydrox/Mg Hydrox/Simethicone (Mylanta) 30 ml Q4HP PRN PO HEARTBURN/ INDIGESTION Last administered on 04/14/17 23:36; Start 04/14/17 at 15:45; Stop 05/14/17 at 15:44 Aripiprazole (AbiLIFY) 2.5 mg QHS PO Last administered on 02/16/17 20:07; Start 02/07/17 at 21:00; Stop 02/17/17 at 12:25; Status DC Aripiprazole (AbiLIFY) 5 mg QHS PO Last administered on 02/23/17 21:06; Start 02/17/17 at 21:00; Stop 02/24/17 at 17:48; Status DC Aripiprazole (AbiLIFY) 7.5 mg BID PO Last administered on 02/25/17 08:02; Start 02/24/17 at 21:00; Stop 02/25/17 at 11:54; Status DC Aripiprazole (AbiLIFY) 10 mg BID PO Last administered on 03/21/17 08:19; Start 03/18/17 at 21:00; Stop 03/21/17 at 16:03; Status DC Aripiprazole (AbiLIFY) 10 mg BID PO Last administered on 03/03/17 08:14; Start 02/25/17 at 21:00; Stop 03/03/17 at 10:13; Status DC Aripiprazole (AbiLIFY) 15 mg BID PO Last administered on 03/08/17 08:08; Start 03/03/17 at 21:00; Stop 03/08/17 at 08:14; Status DC Aripiprazole (AbiLIFY) 15 mg BID PO ; Start 03/08/17 at 09:00; Stop 04/02/17 at 20:59; Status Cancel Aripiprazole (AbiLIFY) 15 mg BID PO Last administered on 03/10/17 08:03; Start 03/08/17 at 21:00; Stop 03/10/17 at 15:14; Status DC Aripiprazole (AbiLIFY) 15 mg BID PO Last administered on 03/18/17 08:37; Start 03/14/17 at 21:00; Stop 03/18/17 at 12:15; Status DC Aripiprazole (AbiLIFY) 15 mg BID PO Last administered on 03/25/17 08:05; Start 03/21/17 at 21:00; Stop 03/25/17 at 16:17; Status DC Aripiprazole (AbiLIFY) 20 mg BID PO Last administered on 03/14/17 08:05; Start 03/10/17 at 21:00; Stop 03/14/17 at 14:42; Status DC Aripiprazole (AbiLIFY) 20 mg BID PO ; Start 04/12/17 at 21:00; Stop 04/12/17 at 21:59; Status DC Aripiprazole (AbiLIFY) 20 mg BID PO Last administered on 04/18/17 08:34; Start 04/14/17 at 21:00; Stop 05/14/17 at 20:59 Aripiprazole (AbiLIFY) 20 mg BID PO Last administered on 04/11/17 07:48; Start 03/25/17 at 21:00; Stop 04/11/17 at 20:35; Status DC Aspirin (Aspirin Chewable) 81 mg DAILY PO Last administered on 04/12/17 19:58 ; Start 04/12/17 at 09:00; Stop 04/12/17 at 21:59; Status DC Aspirin (Aspirin) 325 mg DAILY PO ; Start 04/14/17 at 09:00; Stop 04/14/17 at 16 :11; Status DC Aspirin (Aspirin) 325 mg DAILY PO ; Start 04/15/17 at 09:00; Stop 04/15/17 at 09 :00; Status DC Benztropine Mesylate (Cogentin) 0.5 mg BID PO Last administered on 02/23/17 08: 43; Start 02/04/17 at 09:00; Stop 02/23/17 at 13:41; Status DC Benztropine Mesylate (Cogentin) 1 mg BID PO Last administered on 03/14/17 08: 05; Start 02/23/17 at 09:00; Stop 03/14/17 at 16:09; Status DC Benztropine Mesylate (Cogentin) 1 mg TID PO Last administered on 03/24/17 20:11 ; Start 03/14/17 at 21:00; Stop 03/25/17 at 08:59; Status DC Buspirone HCl (Buspar) 7.5 mg TID PO Last administered on 02/26/17 08:04; Start 02/04/17 at 16:00; Stop 02/26/17 at 12:48; Status DC Cefdinir (Omnicef) 300 mg BID PO ; Start 04/12/17 at 21:00; Stop 04/12/17 at 21: 59; Status DC Cefdinir (Omnicef) 300 mg BID PO Last administered on 04/18/17 08:33; Start at 21:00; Stop 04/21/17 at 20:59 Clozapine (Clozaril) 25 mg QHS PO Last administered on 03/20/17 21:41; Start at 21:00; Stop 03/21/17 at 08:59; Status DC Clozapine (Clozaril) 50 mg QAM PO Last administered on 03/18/17 08:37; Start 03/14/17 at 09:00; Stop 03/18/17 at 21:20; Status DC Clozapine (Clozaril) 50 mg QHS PO Last administered on 03/25/17 22:42; Start at 21:00; Stop 03/27/17 at 13:55; Status DC Clozapine (Clozaril) 75 mg QHS PO Last administered on 04/09/17 20:17; Start 03/27/17 at 21:00; Stop 04/10/17 at 14:36; Status DC Clozapine (Clozaril) 100 mg QHS PO Last administered on 04/09/17 20:17; Start 04/03/17 at 21:00; Stop 04/10/17 at 14:34; Status DC Clozapine (Clozaril) 150 mg QHS PO ; Start 04/10/17 at 21:00; Stop 04/17/17 at 20:59; Status Cancel Clozapine (Clozaril) 150 mg QHS PO ; Start 04/11/17 at 21:00; Stop 04/11/17 at 21:00; Status Cancel Clozapine (Clozaril) 200 mg QHS PO Last administered on 04/10/17 20:03; Start 04/10/17 at 21:00; Stop 04/11/17 at 11:18; Status DC Diphenhydramine HCl (Benadryl) 50 mg STAT STAT IM ; Start 04/12/17 at 17:45; Stop 04/12/17 at 17:47; Status DC Diphenhydramine HCl (Benadryl) 50 mg STAT STAT PO Last administered on 13:04; Start 04/12/17 at 12:41; Stop 04/12/17 at 12:42; Status DC Diphenhydramine HCl (Benadryl) 50 mg STAT STAT PO Last administered on 17:51; Start 04/12/17 at 17:43; Stop 04/12/17 at 17:45; Status DC Docusate Sodium (Colace) 100 mg BID PO Last administered on 04/11/17 07:48; Start 02/03/17 at 21:00; Stop 04/11/17 at 20:35; Status DC Gabapentin (Neurontin) 100 mg QAM PO Last administered on 02/24/17 08:14; Start 02/04/17 at 09:00; Stop 02/24/17 at 17:59; Status DC Gabapentin (Neurontin) 200 mg QAM PO Last administered on 03/19/17 08:04; Start 02/25/17 at 09:00; Stop 03/19/17 at 11:00; Status DC Gabapentin (Neurontin) 300 mg QHS PO Last administered on 04/10/17 20:03; Start 03/21/17 at 21:00; Stop 04/11/17 at 20:35; Status DC Gabapentin (Neurontin) 300 mg QHS PO ; Start 04/12/17 at 21:00; Stop 04/12/17 at 21:59; Status DC Gabapentin (Neurontin) 300 mg QHS PO Last administered on 04/15/17 20:09; Start 04/14/17 at 21:00; Stop 05/14/17 at 20:59 Gabapentin (Neurontin) 300 mg TID PO ; Start 03/21/17 at 21:00; Stop 03/21/17 at 21:00; Status DC Gabapentin (Neurontin) 400 mg QHS PO Last administered on 03/18/17 20:56; Start 02/04/17 at 21:00; Stop 03/19/17 at 11:00; Status DC Gabapentin (Neurontin) 600 mg BID PO ; Start 04/14/17 at 21:00; Stop 04/14/17 at 21:00; Status DC Gabapentin (Neurontin) 600 mg BID@0900,1600 PO Last administered on 04/11/17 07:48; Start 03/21/17 at 16:00; Stop 04/11/17 at 20:35; Status DC Gabapentin (Neurontin) 600 mg BID@0900,1600 PO Last administered on 04/12/17 14:54; Start 04/12/17 at 16:00; Stop 04/12/17 at 21:59; Status DC Gabapentin (Neurontin) 600 mg BID@0900,1600 PO Last administered on 04/18/17 15:34; Start 04/14/17 at 16:00; Stop 05/14/17 at 15:59 Haloperidol (Haldol) 10 mg Q8HP PRN PO ANXIETY/AGITATION; Start 04/14/17 at 15: 45; Stop 05/14/17 at 15:44 Haloperidol (Haldol) 10 mg STAT STAT IM ; Start 04/12/17 at 17:45; Stop at 17:47; Status DC Haloperidol (Haldol) 10 mg STAT STAT PO Last administered on 04/12/17 13:04; Start 04/12/17 at 12:40; Stop 04/12/17 at 12:42; Status DC Haloperidol (Haldol) 10 mg STAT STAT PO Last administered on 04/12/17 17:51; Start 04/12/17 at 17:43; Stop 04/12/17 at 17:45; Status DC Haloperidol Decanoate (Haldol Decanoate) 50 mg Q14D IM Last administered on 09:23; Start 04/15/17 at 09:00; Stop 05/15/17 at 08:59 Haloperidol Decanoate (Haldol Decanoate) 50 mg Q14D STAT IM ; Start 02/18/17 at 20:24; Stop 02/18/17 at 20:25; Status Cancel Haloperidol Decanoate (Haldol Decanoate) 50 mg Q14D@0900 IM Last administered on 04/01/17 10:33; Start 03/18/17 at 09:00; Stop 04/11/17 at 20:35; Status DC Haloperidol Decanoate (Haldol Decanoate) 50 mg Q14D@14 IM Last administered on 03/04/17 13:27; Start 02/04/17 at 14:00; Stop 03/06/17 at 13:59; Status DC Home Med (Med Rec Complete!) ASDIRECTED XX ; Start 02/03/17 at 12:15; Stop at 12:15; Status DC Lorazepam (Ativan) 1 mg Q6HP PRN PO ANXIETY; Start 04/12/17 at 14:30; Stop at 21:59; Status DC Lorazepam (Ativan) 1 mg Q8HP PRN PO ANXIETY/AGITATION Last administered on 20:52; Start 02/03/17 at 15:45; Stop 02/26/17 at 12:48; Status DC Lorazepam (Ativan) 1 mg STAT STAT PO Last administered on 04/12/17 13:04; Start 04/12/17 at 12:42; Stop 04/12/17 at 12:44; Status DC Lorazepam (Ativan) 1 mg TID PO Last administered on 03/19/17 08:04; Start 08/05 at 16:00; Stop 03/19/17 at 11:02; Status DC Lorazepam (Ativan) 1 mg TID PO Last administered on 03/26/17 08:06; Start at 21:00; Stop 03/26/17 at 11:14; Status DC Lorazepam (Ativan) 1 mg TID PRN PO Anxiety Last administered on 03/19/17 16:11 ; Start 03/19/17 at 11:15; Stop 03/21/17 at 16:07; Status DC Lorazepam (Ativan) 2 mg STAT STAT IM ; Start 04/12/17 at 17:45; Stop 04/12/17 at 17:47; Status DC Lorazepam (Ativan) 2 mg STAT STAT PO Last administered on 04/12/17 17:51; Start 04/12/17 at 17:43; Stop 04/12/17 at 17:45; Status DC Lorazepam (Ativan) 4 mg Q8HP PRN PO ANXIETY AGITATION Last administered on 04/16 18:28; Start 04/14/17 at 16:00; Stop 04/21/17 at 15:59 Magnesium Hydroxide (Milk Of Magnesia) 30 ml DAILYPRN PRN PO CONSTIPATION; Start 02/03/17 at 15:45; Stop 03/05/17 at 15:44; Status DC Magnesium Hydroxide (Milk Of Magnesia) 30 ml DAILYPRN PRN PO CONSTIPATION Last administered on 03/24/17 15:50; Start 03/05/17 at 19:15; Stop 04/11/17 at 20:35 ; Status DC Magnesium Hydroxide (Milk Of Magnesia) 30 ml DAILYPRN PRN PO CONSTIPATION; Start 04/14/17 at 15:45; Stop 05/14/17 at 15:44 Metoprolol Tartrate (Lopressor) 25 mg BID PO Last administered on 04/12/17 19: 43; Start 04/12/17 at 21:00; Stop 04/12/17 at 21:59; Status DC Metoprolol Tartrate (Lopressor) 25 mg BID PO Last administered on 04/18/17 08: 34; Start 04/14/17 at 21:00; Stop 05/14/17 at 20:59 Mirtazapine (Remeron) 15 mg QHS PO Last administered on 02/27/17 21:37; Start 02/04/17 at 21:00; Stop 02/28/17 at 09:19; Status DC Mirtazapine (Remeron) 30 mg QHS PO Last administered on 03/18/17 20:56; Start 02/28/17 at 21:00; Stop 03/19/17 at 11:02; Status DC Mirtazapine (Remeron) 30 mg QHS PRN PO Insomnia; Start 03/19/17 at 11:15; Stop 03/21/17 at 16:05; Status DC Mirtazapine (Remeron) 45 mg QHS PO ; Start 04/12/17 at 21:00; Stop 04/12/17 at 21:59; Status DC Mirtazapine (Remeron) 45 mg QHS PO Last administered on 04/17/17 21:12; Start 04/14/17 at 21:00; Stop 05/14/17 at 20:59 Mirtazapine (Remeron) 45 mg QHSP PRN PO Insomnia Last administered on 20:35; Start 03/21/17 at 16:15; Stop 04/11/17 at 20:35; Status DC Miscellaneous (Unresolved Clarification Entry) SEE LABEL COMMENTS UNRESOLVED XX ; Start 03/07/17 at 00:01; Stop 03/10/17 at 15:08; Status DC Nicotine (Nicoderm Cq 14mg) 1 patch DAILY TD Last administered on 04/18/17 08: 34; Start 04/15/17 at 09:00; Stop 05/15/17 at 08:59 Nicotine (Nicoderm Cq 21mg) 1 patch DAILY TD Last administered on 04/11/17 07: 49; Start 02/04/17 at 09:00; Stop 04/11/17 at 20:35; Status DC Nicotine (Nicoderm Cq 21mg) 1 patch DAILY TD Last administered on 04/12/17 14: 54; Start 04/12/17 at 09:00; Stop 04/12/17 at 21:59; Status DC Olanzapine (ZyPREXA) 10 mg DAILY PO Last administered on 02/04/17 08:59; Start 02/03/17 at 09:00; Stop 02/04/17 at 14:20; Status DC Quetiapine Fumarate (SEROquel) 200 mg QHS PO ; Start 02/04/17 at 21:00; Stop at 13:42; Status DC Trazodone HCl (Desyrel) 50 mg QHSP PRN PO INSOMNIA; Start 02/03/17 at 16:45; Stop 03/05/17 at 16:44; Status Cancel Trazodone HCl (Desyrel) 50 mg QHSP PRN PO INSOMNIA Last administered on 21:49; Start 02/28/17 at 12:45; Stop 03/10/17 at 15:11; Status DC Venlafaxine HCl (Effexor Xr) 75 mg DAILY PO Last administered on 02/06/17 08:28; Start 02/04/17 at 09:00; Stop 02/06/17 at 18:02; Status DC Venlafaxine HCl (Effexor Xr) 150 mg BID PO Last administered on 04/11/17 07:48; Start 03/07/17 at 09:00; Stop 04/11/17 at 20:35; Status DC Venlafaxine HCl (Effexor Xr) 150 mg BID PO ; Start 04/12/17 at 21:00; Stop 04/12/17 at 21:59; Status DC Venlafaxine HCl (Effexor Xr) 150 mg QHS PO Last administered on 02/23/17 21 :05; Start 02/07/17 at 21:00; Stop 02/24/17 at 17:59; Status DC Venlafaxine HCl (Effexor) 150 mg BID PO Last administered on 03/06/17 20:04; Start 02/24/17 at 21:00; Stop 03/06/17 at 23:26; Status DC Venlafaxine HCl (Effexor) 150 mg BID PO Last administered on 04/18/17 08:33; Start 04/14/17 at 21:00; Stop 05/14/17 at 20:59 Allergies Coded Allergies: Loxapine (Verified Allergy, Mild, 01/21/13) Thiothixene (Verified Allergy, Mild, 01/21/13) Fluphenazine (Verified Allergy, Unknown, 09/12/15) UNKNOWN [place] (Verified Allergy, Unknown, UNKNOWN, 09/12/15) Meperidine (Verified Allergy, Unknown, UNKNOWN, 09/12/15) Phenothiazines (Verified Allergy, Unknown, UNKNOWN, 09/12/15) Thioridazine (Verified Allergy, Unknown, UNKNOWN, 09/12/15) KELVIN GARIBAY MD Apr 18, 2017 21:00
[2017-04-18] MEDS: MIRTAZAPINE 15 MG TAB PO SCH (21:23)
[2017-04-19] MEDS: GABAPENTIN 300 MG CAP PO SCH ×3 (08:07→21:10)
[2017-04-19] MEDS: METOPROLOL TART 25 MG TABLET PO SCH ×2 (08:08→21:10)
[2017-04-19] MEDS: NICOTINE 14 MG/24 HR TRANSDERMAL TD SCH (08:08)
[2017-04-19] MEDS: VENLAFAXINE 37.5 MG TAB PO SCH ×2 (08:08→21:11)
[2017-04-19] MEDS: ARIPiprazole 10 MG TAB PO SCH ×2 (08:08→21:11)
[2017-04-19] MEDS: CEFDINIR 300 MG CAP (OMNICEF) PO SCH ×2 (08:08→21:10)
[2017-04-19 18:00] VITALS: BP 116/60
[2017-04-19] MEDS: MIRTAZAPINE 15 MG TAB PO SCH (21:10)
[2017-04-20 06:12] VITALS: BP 122/76
[2017-04-20] MEDS: VENLAFAXINE 37.5 MG TAB PO SCH ×2 (08:29→20:45)
[2017-04-20] MEDS: ARIPiprazole 10 MG TAB PO SCH ×2 (08:29→20:45)
[2017-04-20] MEDS: CEFDINIR 300 MG CAP (OMNICEF) PO SCH ×2 (08:29→20:45)
[2017-04-20] MEDS: METOPROLOL TART 25 MG TABLET PO SCH ×2 (08:30→20:46)
[2017-04-20] MEDS: GABAPENTIN 300 MG CAP PO SCH ×3 (08:31→20:45)
[2017-04-20] MEDS: NICOTINE 14 MG/24 HR TRANSDERMAL TD SCH (09:15)
[2017-04-20 18:45] VITALS: BP 113/62
[2017-04-20] MEDS: MIRTAZAPINE 15 MG TAB PO SCH (20:46)
[2017-04-21 06:32] VITALS: BP 120/63
[2017-04-21] MEDS: GABAPENTIN 300 MG CAP PO SCH ×3 (08:20→21:53)
[2017-04-21] MEDS: METOPROLOL TART 25 MG TABLET PO SCH ×2 (08:20→21:53)
[2017-04-21] MEDS: VENLAFAXINE 37.5 MG TAB PO SCH ×2 (08:20→21:52)
[2017-04-21] MEDS: CEFDINIR 300 MG CAP (OMNICEF) PO SCH ×2 (08:20→21:52)
[2017-04-21] MEDS: ARIPiprazole 10 MG TAB PO SCH ×2 (08:20→21:52)
[2017-04-21] MEDS: NICOTINE 14 MG/24 HR TRANSDERMAL TD SCH (08:21)
--- NOTE | 2017-04-21 15:09 | MHIPNPDOC ---
[facility] [address] [facility] Progress Note Progress Note INTERVAL HISTORY: Medication Side effects: Has requested to decrease Remeron at night. He reports it makes him very sleepy. Behavior: Has being slightly less isolated, no violence or aggressiveness has been displayed. Group Attendance: Has been attending groups Psychiatric Symptom change: Since Friday he has been observed to be a little bit more coherent, but then again he goes through those periods when he seems to be doing well and he decompensates a couple of hours later. VITAL SIGNS: See below. NEW TEST RESULTS: See below CURRENT MEDICATIONS: See below. MENTAL STATUS EXAMINATION: General: Alert, dressed in personal clothes, cooperative, with fair eye contact and good hygiene Speech: A little bit tangential Thought processes: Not rational Thought content: Perseveres about leaving the inpatient mental health unit, willing to go to [facility], being bored. Abstract reasoning, and computation: Limited due to cognitive impairment secondary to paranoid schizophrenia Description of associations: Slightly loose Description of abnormal or psychotic thoughts: Paranoid and persecutory delusions are present. Denies auditory and visual hallucinations, denies suicidal and homicidal ideation. Judgment: Poor Insight: Poor Orientation: Oriented to place and person only Recent and remote memory: Limited due to cognitive impairment secondary to chronic mental illness Attention span and concentration: Fair Fund of knowledge: Fair Mood: "I feel better today, but I'm sleeping too much" Affect: Constricted DIAGNOSES: 1. Paranoid schizophrenia. 2. Major depressive disorder. ASSESSMENT: Patient is in a fairly good mood since he was transferred back from the medical floor last week. He has stated that he feels grateful for being alive. He seems to be less guarded than before and he has not been receiving Clozaril since he contracted pneumonia. His last by blood cell count was within normal limits and his EKG didn't show atrial flutter. It was very similar to the one on April 01 and previous EKGs done 2015. MANAGEMENT PLAN: Medications: Will continue the same medications, except for Remeron that was decreased from 45-30 mg daily at bedtime Psychotherapy: Will encourage him to attend groups Social: Will emphasize the importance of social and family networks for support Misc: None Disposition: Patient needs to be transferred for long-term treatment iron level of care. We are awaiting for a response from [facility] or [place]. TIME SPENT: 20 minutes.DATE OF SERVICE: 04/21/17 Vital Signs Vital Signs Date Time Temp Pulse Resp B/P (MAP) Pulse Ox O2 Delivery O2 Flow Rate FiO2 04/21/17 08:20 72 120/63 04/21/17 06:32 98.0 18 04/17/17 09:00 Room Air 04/17/17 09:00 96 Current Medications Current Medications Acetaminophen (Tylenol Tab) 650 mg Q6HP PRN PO HEADACHE or DISCOMFORT Last administered on 04/11/17 06:17; Start 02/03/17 at 15:45; Stop 04/11/17 at 20:35 ; Status DC Acetaminophen (Tylenol Tab) 650 mg Q6HP PRN PO HEADACHE or DISCOMFORT; Start at 19:15; Stop 04/04/17 at 19:14; Status Cancel Acetaminophen (Tylenol Tab) 650 mg Q6HP PRN PO HEADACHE or DISCOMFORT; Start at 15:45; Stop 05/14/17 at 15:44 Al Hydrox/Mg Hydrox/Simethicone (Mylanta) 30 ml Q4HP PRN PO HEARTBURN/ INDIGESTION; Start 02/03/17 at 15:45; Stop 03/05/17 at 15:44; Status DC Al Hydrox/Mg Hydrox/Simethicone (Mylanta) 30 ml Q4HP PRN PO HEARTBURN/ INDIGESTION Last administered on 04/01/17 22:41; Start 03/05/17 at 19:30; Stop 04/11/17 at 20:35; Status DC Al Hydrox/Mg Hydrox/Simethicone (Mylanta) 30 ml Q4HP PRN PO HEARTBURN/ INDIGESTION; Start 03/06/17 at 10:00; Stop 04/04/17 at 09:59; Status Cancel Al Hydrox/Mg Hydrox/Simethicone (Mylanta) 30 ml Q4HP PRN PO HEARTBURN/ INDIGESTION Last administered on 04/14/17 23:36; Start 04/14/17 at 15:45; Stop 05/14/17 at 15:44 Aripiprazole (AbiLIFY) 2.5 mg QHS PO Last administered on 02/16/17 20:07; Start 02/07/17 at 21:00; Stop 02/17/17 at 12:25; Status DC Aripiprazole (AbiLIFY) 5 mg QHS PO Last administered on 02/23/17 21:06; Start 02/17/17 at 21:00; Stop 02/24/17 at 17:48; Status DC Aripiprazole (AbiLIFY) 7.5 mg BID PO Last administered on 02/25/17 08:02; Start 02/24/17 at 21:00; Stop 02/25/17 at 11:54; Status DC Aripiprazole (AbiLIFY) 10 mg BID PO Last administered on 03/21/17 08:19; Start 03/18/17 at 21:00; Stop 03/21/17 at 16:03; Status DC Aripiprazole (AbiLIFY) 10 mg BID PO Last administered on 03/03/17 08:14; Start 02/25/17 at 21:00; Stop 03/03/17 at 10:13; Status DC Aripiprazole (AbiLIFY) 15 mg BID PO Last administered on 03/08/17 08:08; Start 03/03/17 at 21:00; Stop 03/08/17 at 08:14; Status DC Aripiprazole (AbiLIFY) 15 mg BID PO ; Start 03/08/17 at 09:00; Stop 04/02/17 at 20:59; Status Cancel Aripiprazole (AbiLIFY) 15 mg BID PO Last administered on 03/10/17 08:03; Start 03/08/17 at 21:00; Stop 03/10/17 at 15:14; Status DC Aripiprazole (AbiLIFY) 15 mg BID PO Last administered on 03/18/17 08:37; Start 03/14/17 at 21:00; Stop 03/18/17 at 12:15; Status DC Aripiprazole (AbiLIFY) 15 mg BID PO Last administered on 03/25/17 08:05; Start 03/21/17 at 21:00; Stop 03/25/17 at 16:17; Status DC Aripiprazole (AbiLIFY) 20 mg BID PO Last administered on 03/14/17 08:05; Start 03/10/17 at 21:00; Stop 03/14/17 at 14:42; Status DC Aripiprazole (AbiLIFY) 20 mg BID PO ; Start 04/12/17 at 21:00; Stop 04/12/17 at 21:59; Status DC Aripiprazole (AbiLIFY) 20 mg BID PO Last administered on 04/21/17 08:20; Start 04/14/17 at 21:00; Stop 05/14/17 at 20:59 Aripiprazole (AbiLIFY) 20 mg BID PO Last administered on 04/11/17 07:48; Start 03/25/17 at 21:00; Stop 04/11/17 at 20:35; Status DC Aspirin (Aspirin Chewable) 81 mg DAILY PO Last administered on 04/12/17 19:58 ; Start 04/12/17 at 09:00; Stop 04/12/17 at 21:59; Status DC Aspirin (Aspirin) 325 mg DAILY PO ; Start 04/14/17 at 09:00; Stop 04/14/17 at 16 :11; Status DC Aspirin (Aspirin) 325 mg DAILY PO ; Start 04/15/17 at 09:00; Stop 04/15/17 at 09 :00; Status DC Benztropine Mesylate (Cogentin) 0.5 mg BID PO Last administered on 02/23/17 08: 43; Start 02/04/17 at 09:00; Stop 02/23/17 at 13:41; Status DC Benztropine Mesylate (Cogentin) 1 mg BID PO Last administered on 03/14/17 08: 05; Start 02/23/17 at 09:00; Stop 03/14/17 at 16:09; Status DC Benztropine Mesylate (Cogentin) 1 mg TID PO Last administered on 03/24/17 20:11 ; Start 03/14/17 at 21:00; Stop 03/25/17 at 08:59; Status DC Buspirone HCl (Buspar) 7.5 mg TID PO Last administered on 02/26/17 08:04; Start 02/04/17 at 16:00; Stop 02/26/17 at 12:48; Status DC Cefdinir (Omnicef) 300 mg BID PO ; Start 04/12/17 at 21:00; Stop 04/12/17 at 21: 59; Status DC Cefdinir (Omnicef) 300 mg BID PO Last administered on 04/21/17 08:20; Start at 21:00; Stop 04/27/17 at 20:59 Clozapine (Clozaril) 25 mg QHS PO Last administered on 03/20/17 21:41; Start at 21:00; Stop 03/21/17 at 08:59; Status DC Clozapine (Clozaril) 50 mg QAM PO Last administered on 03/18/17 08:37; Start 03/14/17 at 09:00; Stop 03/18/17 at 21:20; Status DC Clozapine (Clozaril) 50 mg QHS PO Last administered on 03/25/17 22:42; Start at 21:00; Stop 03/27/17 at 13:55; Status DC Clozapine (Clozaril) 75 mg QHS PO Last administered on 04/09/17 20:17; Start 03/27/17 at 21:00; Stop 04/10/17 at 14:36; Status DC Clozapine (Clozaril) 100 mg QHS PO Last administered on 04/09/17 20:17; Start 04/03/17 at 21:00; Stop 04/10/17 at 14:34; Status DC Clozapine (Clozaril) 150 mg QHS PO ; Start 04/10/17 at 21:00; Stop 04/17/17 at 20:59; Status Cancel Clozapine (Clozaril) 150 mg QHS PO ; Start 04/11/17 at 21:00; Stop 04/11/17 at 21:00; Status Cancel Clozapine (Clozaril) 200 mg QHS PO Last administered on 04/10/17 20:03; Start 04/10/17 at 21:00; Stop 04/11/17 at 11:18; Status DC Diphenhydramine HCl (Benadryl) 50 mg STAT STAT IM ; Start 04/12/17 at 17:45; Stop 04/12/17 at 17:47; Status DC Diphenhydramine HCl (Benadryl) 50 mg STAT STAT PO Last administered on 13:04; Start 04/12/17 at 12:41; Stop 04/12/17 at 12:42; Status DC Diphenhydramine HCl (Benadryl) 50 mg STAT STAT PO Last administered on 17:51; Start 04/12/17 at 17:43; Stop 04/12/17 at 17:45; Status DC Docusate Sodium (Colace) 100 mg BID PO Last administered on 04/11/17 07:48; Start 02/03/17 at 21:00; Stop 04/11/17 at 20:35; Status DC Gabapentin (Neurontin) 100 mg QAM PO Last administered on 02/24/17 08:14; Start 02/04/17 at 09:00; Stop 02/24/17 at 17:59; Status DC Gabapentin (Neurontin) 200 mg QAM PO Last administered on 03/19/17 08:04; Start 02/25/17 at 09:00; Stop 03/19/17 at 11:00; Status DC Gabapentin (Neurontin) 300 mg QHS PO Last administered on 04/10/17 20:03; Start 03/21/17 at 21:00; Stop 04/11/17 at 20:35; Status DC Gabapentin (Neurontin) 300 mg QHS PO ; Start 04/12/17 at 21:00; Stop 04/12/17 at 21:59; Status DC Gabapentin (Neurontin) 300 mg QHS PO Last administered on 04/20/17 20:45; Start 04/14/17 at 21:00; Stop 05/14/17 at 20:59 Gabapentin (Neurontin) 300 mg TID PO ; Start 03/21/17 at 21:00; Stop 03/21/17 at 21:00; Status DC Gabapentin (Neurontin) 400 mg QHS PO Last administered on 03/18/17 20:56; Start 02/04/17 at 21:00; Stop 03/19/17 at 11:00; Status DC Gabapentin (Neurontin) 600 mg BID PO ; Start 04/14/17 at 21:00; Stop 04/14/17 at 21:00; Status DC Gabapentin (Neurontin) 600 mg BID@0900,1600 PO Last administered on 04/11/17 07:48; Start 03/21/17 at 16:00; Stop 04/11/17 at 20:35; Status DC Gabapentin (Neurontin) 600 mg BID@0900,1600 PO Last administered on 04/12/17 14:54; Start 04/12/17 at 16:00; Stop 04/12/17 at 21:59; Status DC Gabapentin (Neurontin) 600 mg BID@0900,1600 PO Last administered on 04/21/17 08 :20; Start 04/14/17 at 16:00; Stop 05/14/17 at 15:59 Haloperidol (Haldol) 10 mg Q8HP PRN PO ANXIETY/AGITATION; Start 04/14/17 at 15: 45; Stop 05/14/17 at 15:44 Haloperidol (Haldol) 10 mg STAT STAT IM ; Start 04/12/17 at 17:45; Stop at 17:47; Status DC Haloperidol (Haldol) 10 mg STAT STAT PO Last administered on 04/12/17 13:04; Start 04/12/17 at 12:40; Stop 04/12/17 at 12:42; Status DC Haloperidol (Haldol) 10 mg STAT STAT PO Last administered on 04/12/17 17:51; Start 04/12/17 at 17:43; Stop 04/12/17 at 17:45; Status DC Haloperidol Decanoate (Haldol Decanoate) 50 mg Q14D IM Last administered on 09:23; Start 04/15/17 at 09:00; Stop 05/15/17 at 08:59 Haloperidol Decanoate (Haldol Decanoate) 50 mg Q14D STAT IM ; Start 02/18/17 at 20:24; Stop 02/18/17 at 20:25; Status Cancel Haloperidol Decanoate (Haldol Decanoate) 50 mg Q14D@0900 IM Last administered on 04/01/17 10:33; Start 03/18/17 at 09:00; Stop 04/11/17 at 20:35; Status DC Haloperidol Decanoate (Haldol Decanoate) 50 mg Q14D@14 IM Last administered on 03/04/17 13:27; Start 02/04/17 at 14:00; Stop 03/06/17 at 13:59; Status DC Home Med (Med Rec Complete!) ASDIRECTED XX ; Start 02/03/17 at 12:15; Stop at 12:15; Status DC Lorazepam (Ativan) 1 mg Q6HP PRN PO ANXIETY; Start 04/12/17 at 14:30; Stop at 21:59; Status DC Lorazepam (Ativan) 1 mg Q8HP PRN PO ANXIETY/AGITATION Last administered on 20:52; Start 02/03/17 at 15:45; Stop 02/26/17 at 12:48; Status DC Lorazepam (Ativan) 1 mg STAT STAT PO Last administered on 04/12/17 13:04; Start 04/12/17 at 12:42; Stop 04/12/17 at 12:44; Status DC Lorazepam (Ativan) 1 mg TID PO Last administered on 03/19/17 08:04; Start 08/05 at 16:00; Stop 03/19/17 at 11:02; Status DC Lorazepam (Ativan) 1 mg TID PO Last administered on 03/26/17 08:06; Start at 21:00; Stop 03/26/17 at 11:14; Status DC Lorazepam (Ativan) 1 mg TID PRN PO Anxiety Last administered on 03/19/17 16:11 ; Start 03/19/17 at 11:15; Stop 03/21/17 at 16:07; Status DC Lorazepam (Ativan) 2 mg STAT STAT IM ; Start 04/12/17 at 17:45; Stop 04/12/17 at 17:47; Status DC Lorazepam (Ativan) 2 mg STAT STAT PO Last administered on 04/12/17 17:51; Start 04/12/17 at 17:43; Stop 04/12/17 at 17:45; Status DC Lorazepam (Ativan) 4 mg Q8HP PRN PO ANXIETY AGITATION Last administered on 04/16 18:28; Start 04/14/17 at 16:00; Stop 04/27/17 at 15:59 Magnesium Hydroxide (Milk Of Magnesia) 30 ml DAILYPRN PRN PO CONSTIPATION; Start 02/03/17 at 15:45; Stop 03/05/17 at 15:44; Status DC Magnesium Hydroxide (Milk Of Magnesia) 30 ml DAILYPRN PRN PO CONSTIPATION Last administered on 03/24/17 15:50; Start 03/05/17 at 19:15; Stop 04/11/17 at 20:35 ; Status DC Magnesium Hydroxide (Milk Of Magnesia) 30 ml DAILYPRN PRN PO CONSTIPATION; Start 04/14/17 at 15:45; Stop 05/14/17 at 15:44 Metoprolol Tartrate (Lopressor) 25 mg BID PO Last administered on 04/12/17 19: 43; Start 04/12/17 at 21:00; Stop 04/12/17 at 21:59; Status DC Metoprolol Tartrate (Lopressor) 25 mg BID PO Last administered on 04/21/17 08: 20; Start 04/14/17 at 21:00; Stop 05/14/17 at 20:59 Mirtazapine (Remeron) 15 mg QHS PO Last administered on 02/27/17 21:37; Start 02/04/17 at 21:00; Stop 02/28/17 at 09:19; Status DC Mirtazapine (Remeron) 30 mg QHS PO Last administered on 03/18/17 20:56; Start 02/28/17 at 21:00; Stop 03/19/17 at 11:02; Status DC Mirtazapine (Remeron) 30 mg QHS PO ; Start 04/21/17 at 21:00; Stop 05/21/17 at 20: 59 Mirtazapine (Remeron) 30 mg QHS PRN PO Insomnia; Start 03/19/17 at 11:15; Stop 03/21/17 at 16:05; Status DC Mirtazapine (Remeron) 45 mg QHS PO ; Start 04/12/17 at 21:00; Stop 04/12/17 at 21:59; Status DC Mirtazapine (Remeron) 45 mg QHS PO Last administered on 04/20/17 20:46; Start 04/14/17 at 21:00; Stop 04/21/17 at 14:45; Status DC Mirtazapine (Remeron) 45 mg QHSP PRN PO Insomnia Last administered on 20:35; Start 03/21/17 at 16:15; Stop 04/11/17 at 20:35; Status DC Miscellaneous (Unresolved Clarification Entry) SEE LABEL COMMENTS UNRESOLVED XX ; Start 03/07/17 at 00:01; Stop 03/10/17 at 15:08; Status DC Nicotine (Nicoderm Cq 14mg) 1 patch DAILY TD Last administered on 04/21/17 08: 21; Start 04/15/17 at 09:00; Stop 05/15/17 at 08:59 Nicotine (Nicoderm Cq 21mg) 1 patch DAILY TD Last administered on 04/11/17 07: 49; Start 02/04/17 at 09:00; Stop 04/11/17 at 20:35; Status DC Nicotine (Nicoderm Cq 21mg) 1 patch DAILY TD Last administered on 04/12/17 14: 54; Start 04/12/17 at 09:00; Stop 04/12/17 at 21:59; Status DC Olanzapine (ZyPREXA) 10 mg DAILY PO Last administered on 02/04/17 08:59; Start 02/03/17 at 09:00; Stop 02/04/17 at 14:20; Status DC Quetiapine Fumarate (SEROquel) 200 mg QHS PO ; Start 02/04/17 at 21:00; Stop at 13:42; Status DC Trazodone HCl (Desyrel) 50 mg QHSP PRN PO INSOMNIA; Start 02/03/17 at 16:45; Stop 03/05/17 at 16:44; Status Cancel Trazodone HCl (Desyrel) 50 mg QHSP PRN PO INSOMNIA Last administered on 21:49; Start 02/28/17 at 12:45; Stop 03/10/17 at 15:11; Status DC Venlafaxine HCl (Effexor Xr) 75 mg DAILY PO Last administered on 02/06/17 08:28; Start 02/04/17 at 09:00; Stop 02/06/17 at 18:02; Status DC Venlafaxine HCl (Effexor Xr) 150 mg BID PO Last administered on 04/11/17 07:48; Start 03/07/17 at 09:00; Stop 04/11/17 at 20:35; Status DC Venlafaxine HCl (Effexor Xr) 150 mg BID PO ; Start 04/12/17 at 21:00; Stop 6/24/17 at 21:59; Status DC Venlafaxine HCl (Effexor Xr) 150 mg QHS PO Last administered on 02/23/17 21 :05; Start 02/07/17 at 21:00; Stop 02/24/17 at 17:59; Status DC Venlafaxine HCl (Effexor) 150 mg BID PO Last administered on 03/06/17 20:04; Start 02/24/17 at 21:00; Stop 03/06/17 at 23:26; Status DC Venlafaxine HCl (Effexor) 150 mg BID PO Last administered on 04/21/17 08:20; Start 04/14/17 at 21:00; Stop 05/14/17 at 20:59 Allergies Coded Allergies: Loxapine (Verified Allergy, Mild, 01/21/13) Thiothixene (Verified Allergy, Mild, 01/21/13) Fluphenazine (Verified Allergy, Unknown, 09/12/15) UNKNOWN [place] (Verified Allergy, Unknown, UNKNOWN, 09/12/15) Meperidine (Verified Allergy, Unknown, UNKNOWN, 09/12/15) Phenothiazines (Verified Allergy, Unknown, UNKNOWN, 09/12/15) Thioridazine (Verified Allergy, Unknown, UNKNOWN, 09/12/15) KELVIN GARIBAY MD Apr 21, 2017 15:09
[2017-04-21 18:14] VITALS: BP 108/65
[2017-04-21] MEDS: MIRTAZAPINE 15 MG TAB PO SCH (21:54)
[2017-04-22 06:21] VITALS: BP 82/50
[2017-04-22] MEDS: VENLAFAXINE 37.5 MG TAB PO SCH ×2 (08:52→20:04)
[2017-04-22] MEDS: ARIPiprazole 10 MG TAB PO SCH ×2 (08:52→20:05)
[2017-04-22] MEDS: CEFDINIR 300 MG CAP (OMNICEF) PO SCH ×2 (08:52→20:04)
[2017-04-22] MEDS: GABAPENTIN 300 MG CAP PO SCH ×3 (08:53→20:05)
[2017-04-22] MEDS: NICOTINE 14 MG/24 HR TRANSDERMAL TD SCH (08:53)
[2017-04-22] MEDS: METOPROLOL TART 25 MG TABLET PO SCH ×2 (08:55→20:05)
[2017-04-22 10:40] VITALS: BP 117/69
[2017-04-22 11:55] VITALS: BP 118/68
[2017-04-22 18:00] VITALS: BP 111/69
[2017-04-22] MEDS: MIRTAZAPINE 15 MG TAB PO SCH (20:05)
[2017-04-23 07:14] VITALS: BP 112/75
[2017-04-23] MEDS: ARIPiprazole 10 MG TAB PO SCH ×2 (07:59→20:01)
[2017-04-23] MEDS: CEFDINIR 300 MG CAP (OMNICEF) PO SCH ×2 (07:59→20:01)
[2017-04-23] MEDS: VENLAFAXINE 37.5 MG TAB PO SCH ×2 (07:59→20:02)
[2017-04-23] MEDS: GABAPENTIN 300 MG CAP PO SCH ×3 (07:59→20:01)
[2017-04-23] MEDS: METOPROLOL TART 25 MG TABLET PO SCH ×2 (08:00→20:02)
[2017-04-23] MEDS: NICOTINE 14 MG/24 HR TRANSDERMAL TD SCH (08:00)
--- NOTE | 2017-04-23 17:17 | MHIPNPDOC ---
[facility] Progress Note Progress Note DATE OF SERVICE: 04/23/17 INTERVAL HISTORY: Medication Side effects: Denies medication side effects Behavior: Continues to be isolated to his room, but has not been violent or aggressive Group Attendance: Has been attending some groups Psychiatric Symptom change: No major changes at this time VITAL SIGNS: See below. NEW TEST RESULTS: See below CURRENT MEDICATIONS: See below. MENTAL STATUS EXAMINATION: General: Alert, cooperative, poor eye contact, dressed in personal clothes with good hygiene Speech: Less tangential Thought processes: Irrational Thought content: About wanting to leave the inpatient mental health unit and go to [facility] Abstract reasoning, and computation: Limited Description of associations: Slightly loose Description of abnormal or psychotic thoughts: Paranoid and persecutory delusions are present. Denies auditory and visual hallucinations, denies suicidal and homicidal ideation. Judgment: Poor Insight: Poor Orientation: Oriented to place and person only Recent and remote memory: Limited Attention span and concentration: Fair Fund of knowledge: Fair Mood: "I'm fine" Affect: Constricted DIAGNOSES: 1. Paranoid schizophrenia. 2. Major depressive disorder. ASSESSMENT: Patient is still paranoid and suspicious, although he is cooperative. There have been no major changes since he was lastly seen on April 21. Staff hasn't reported problems with him. MANAGEMENT PLAN: Medications: Will continue the same medications Psychotherapy: Will encourage him to attend all groups Social: Will encourage him to interact more with peers and staff Misc: None Disposition: Patient needs to be transferred to [facility] for long-term treatment and a higher level of care. TIME SPENT: 20 minutes. Vital Signs Vital Signs Date Time Temp Pulse Resp B/P (MAP) Pulse Ox O2 Delivery O2 Flow Rate FiO2 04/23/17 08:00 77 112/75 04/23/17 07:14 98.1 18 Room Air 04/17/17 09:00 96 Current Medications Current Medications Acetaminophen (Tylenol Tab) 650 mg Q6HP PRN PO HEADACHE or DISCOMFORT Last administered on 04/11/17t 06:17; Start 02/03/17 at 15:45; Stop 04/11/17 at 20:35 ; Status DC Acetaminophen (Tylenol Tab) 650 mg Q6HP PRN PO HEADACHE or DISCOMFORT; Start at 19:15; Stop 04/04/17 at 19:14; Status Cancel Acetaminophen (Tylenol Tab) 650 mg Q6HP PRN PO HEADACHE or DISCOMFORT; Start at 15:45; Stop 05/14/17 at 15:44 Al Hydrox/Mg Hydrox/Simethicone (Mylanta) 30 ml Q4HP PRN PO HEARTBURN/ INDIGESTION; Start 02/03/17 at 15:45; Stop 03/05/17 at 15:44; Status DC Al Hydrox/Mg Hydrox/Simethicone (Mylanta) 30 ml Q4HP PRN PO HEARTBURN/ INDIGESTION Last administered on 04/01/17 22:41; Start 03/05/17 at 19:30; Stop 04/11/17 at 20:35; Status DC Al Hydrox/Mg Hydrox/Simethicone (Mylanta) 30 ml Q4HP PRN PO HEARTBURN/ INDIGESTION; Start 03/06/17 at 10:00; Stop 04/04/17 at 09:59; Status Cancel Al Hydrox/Mg Hydrox/Simethicone (Mylanta) 30 ml Q4HP PRN PO HEARTBURN/ INDIGESTION Last administered on 04/14/17 23:36; Start 04/14/17 at 15:45; Stop 05/14/17 at 15:44 Aripiprazole (AbiLIFY) 2.5 mg QHS PO Last administered on 02/16/17 20:07; Start 02/07/17 at 21:00; Stop 02/17/17 at 12:25; Status DC Aripiprazole (AbiLIFY) 5 mg QHS PO Last administered on 02/23/17 21:06; Start 02/17/17 at 21:00; Stop 02/24/17 at 17:48; Status DC Aripiprazole (AbiLIFY) 7.5 mg BID PO Last administered on 02/25/17 08:02; Start 02/24/17 at 21:00; Stop 02/25/17 at 11:54; Status DC Aripiprazole (AbiLIFY) 10 mg BID PO Last administered on 03/21/17 08:19; Start 03/18/17 at 21:00; Stop 03/21/17 at 16:03; Status DC Aripiprazole (AbiLIFY) 10 mg BID PO Last administered on 03/03/17 08:14; Start 02/25/17 at 21:00; Stop 03/03/17 at 10:13; Status DC Aripiprazole (AbiLIFY) 15 mg BID PO Last administered on 03/08/17 08:08; Start 03/03/17 at 21:00; Stop 03/08/17 at 08:14; Status DC Aripiprazole (AbiLIFY) 15 mg BID PO ; Start 03/08/17 at 09:00; Stop 04/02/17 at 20:59; Status Cancel Aripiprazole (AbiLIFY) 15 mg BID PO Last administered on 03/10/17 08:03; Start 03/08/17 at 21:00; Stop 03/10/17 at 15:14; Status DC Aripiprazole (AbiLIFY) 15 mg BID PO Last administered on 03/18/17 08:37; Start 03/14/17 at 21:00; Stop 03/18/17 at 12:15; Status DC Aripiprazole (AbiLIFY) 15 mg BID PO Last administered on 03/25/17 08:05; Start 03/21/17 at 21:00; Stop 03/25/17 at 16:17; Status DC Aripiprazole (AbiLIFY) 20 mg BID PO Last administered on 03/14/17 08:05; Start 03/10/17 at 21:00; Stop 03/14/17 at 14:42; Status DC Aripiprazole (AbiLIFY) 20 mg BID PO ; Start 04/12/17 at 21:00; Stop 04/12/17 at 21:59; Status DC Aripiprazole (AbiLIFY) 20 mg BID PO Last administered on 04/23/17 07:59; Start 04/14/17 at 21:00; Stop 05/14/17 at 20:59 Aripiprazole (AbiLIFY) 20 mg BID PO Last administered on 04/11/17 07:48; Start 03/25/17 at 21:00; Stop 04/11/17 at 20:35; Status DC Aspirin (Aspirin Chewable) 81 mg DAILY PO Last administered on 04/12/17 19:58 ; Start 04/12/17 at 09:00; Stop 04/12/17 at 21:59; Status DC Aspirin (Aspirin) 325 mg DAILY PO ; Start 04/14/17 at 09:00; Stop 04/14/17 at 16 :11; Status DC Aspirin (Aspirin) 325 mg DAILY PO ; Start 04/15/17 at 09:00; Stop 04/15/17 at 09 :00; Status DC Benztropine Mesylate (Cogentin) 0.5 mg BID PO Last administered on 02/23/17 08: 43; Start 02/04/17 at 09:00; Stop 02/23/17 at 13:41; Status DC Benztropine Mesylate (Cogentin) 1 mg BID PO Last administered on 03/14/17 08: 05; Start 02/23/17 at 09:00; Stop 03/14/17 at 16:09; Status DC Benztropine Mesylate (Cogentin) 1 mg TID PO Last administered on 03/24/17 20:11 ; Start 03/14/17 at 21:00; Stop 03/25/17 at 08:59; Status DC Buspirone HCl (Buspar) 7.5 mg TID PO Last administered on 02/26/17 08:04; Start 02/04/17 at 16:00; Stop 02/26/17 at 12:48; Status DC Cefdinir (Omnicef) 300 mg BID PO ; Start 04/12/17 at 21:00; Stop 04/12/17 at 21: 59; Status DC Cefdinir (Omnicef) 300 mg BID PO Last administered on 04/23/17 07:59; Start at 21:00; Stop 04/27/17 at 20:59 Clozapine (Clozaril) 25 mg QHS PO Last administered on 03/20/17 21:41; Start at 21:00; Stop 03/21/17 at 08:59; Status DC Clozapine (Clozaril) 50 mg QAM PO Last administered on 03/18/17 08:37; Start 03/14/17 at 09:00; Stop 03/18/17 at 21:20; Status DC Clozapine (Clozaril) 50 mg QHS PO Last administered on 03/25/17 22:42; Start at 21:00; Stop 03/27/17 at 13:55; Status DC Clozapine (Clozaril) 75 mg QHS PO Last administered on 04/09/17 20:17; Start 03/27/17 at 21:00; Stop 04/10/17 at 14:36; Status DC Clozapine (Clozaril) 100 mg QHS PO Last administered on 04/09/17 20:17; Start 04/03/17 at 21:00; Stop 04/10/17 at 14:34; Status DC Clozapine (Clozaril) 150 mg QHS PO ; Start 04/10/17 at 21:00; Stop 04/17/17 at 20:59; Status Cancel Clozapine (Clozaril) 150 mg QHS PO ; Start 04/11/17 at 21:00; Stop 04/11/17 at 21:00; Status Cancel Clozapine (Clozaril) 200 mg QHS PO Last administered on 04/10/17 20:03; Start 04/10/17 at 21:00; Stop 04/11/17 at 11:18; Status DC Diphenhydramine HCl (Benadryl) 50 mg STAT STAT IM ; Start 04/12/17 at 17:45; Stop 04/12/17 at 17:47; Status DC Diphenhydramine HCl (Benadryl) 50 mg STAT STAT PO Last administered on 13:04; Start 04/12/17 at 12:41; Stop 04/12/17 at 12:42; Status DC Diphenhydramine HCl (Benadryl) 50 mg STAT STAT PO Last administered on 17:51; Start 04/12/17 at 17:43; Stop 04/12/17 at 17:45; Status DC Docusate Sodium (Colace) 100 mg BID PO Last administered on 04/11/17 07:48; Start 02/03/17 at 21:00; Stop 04/11/17 at 20:35; Status DC Gabapentin (Neurontin) 100 mg QAM PO Last administered on 02/24/17 08:14; Start 02/04/17 at 09:00; Stop 02/24/17 at 17:59; Status DC Gabapentin (Neurontin) 200 mg QAM PO Last administered on 03/19/17 08:04; Start 02/25/17 at 09:00; Stop 03/19/17 at 11:00; Status DC Gabapentin (Neurontin) 300 mg QHS PO Last administered on 04/10/17 20:03; Start 03/21/17 at 21:00; Stop 04/11/17 at 20:35; Status DC Gabapentin (Neurontin) 300 mg QHS PO ; Start 04/12/17 at 21:00; Stop 04/12/17 at 21:59; Status DC Gabapentin (Neurontin) 300 mg QHS PO Last administered on 04/22/17 20:05; Start 04/14/17 at 21:00; Stop 05/14/17 at 20:59 Gabapentin (Neurontin) 300 mg TID PO ; Start 03/21/17 at 21:00; Stop 03/21/17 at 21:00; Status DC Gabapentin (Neurontin) 400 mg QHS PO Last administered on 03/18/17 20:56; Start 02/04/17 at 21:00; Stop 03/19/17 at 11:00; Status DC Gabapentin (Neurontin) 600 mg BID PO ; Start 04/14/17 at 21:00; Stop 04/14/17 at 21:00; Status DC Gabapentin (Neurontin) 600 mg BID@0900,1600 PO Last administered on 04/11/17 07:48; Start 03/21/17 at 16:00; Stop 04/11/17 at 20:35; Status DC Gabapentin (Neurontin) 600 mg BID@0900,1600 PO Last administered on 04/12/17 14:54; Start 04/12/17 at 16:00; Stop 04/12/17 at 21:59; Status DC Gabapentin (Neurontin) 600 mg BID@0900,1600 PO Last administered on 04/23/17 15 :59; Start 04/14/17 at 16:00; Stop 05/14/17 at 15:59 Haloperidol (Haldol) 10 mg Q8HP PRN PO ANXIETY/AGITATION; Start 04/14/17 at 15: 45; Stop 05/14/17 at 15:44 Haloperidol (Haldol) 10 mg STAT STAT IM ; Start 04/12/17 at 17:45; Stop at 17:47; Status DC Haloperidol (Haldol) 10 mg STAT STAT PO Last administered on 04/12/17 13:04; Start 04/12/17 at 12:40; Stop 04/12/17 at 12:42; Status DC Haloperidol (Haldol) 10 mg STAT STAT PO Last administered on 04/12/17 17:51; Start 04/12/17 at 17:43; Stop 04/12/17 at 17:45; Status DC Haloperidol Decanoate (Haldol Decanoate) 50 mg Q14D IM Last administered on 09:23; Start 04/15/17 at 09:00; Stop 05/15/17 at 08:59 Haloperidol Decanoate (Haldol Decanoate) 50 mg Q14D STAT IM ; Start 02/18/17 at 20:24; Stop 02/18/17 at 20:25; Status Cancel Haloperidol Decanoate (Haldol Decanoate) 50 mg Q14D@0900 IM Last administered on 04/01/17 10:33; Start 03/18/17 at 09:00; Stop 04/11/17 at 20:35; Status DC Haloperidol Decanoate (Haldol Decanoate) 50 mg Q14D@14 IM Last administered on 03/04/17 13:27; Start 02/04/17 at 14:00; Stop 03/06/17 at 13:59; Status DC Home Med (Med Rec Complete!) ASDIRECTED XX ; Start 02/03/17 at 12:15; Stop at 12:15; Status DC Lorazepam (Ativan) 1 mg Q6HP PRN PO ANXIETY; Start 04/12/17 at 14:30; Stop at 21:59; Status DC Lorazepam (Ativan) 1 mg Q8HP PRN PO ANXIETY/AGITATION Last administered on 20:52; Start 02/03/17 at 15:45; Stop 02/26/17 at 12:48; Status DC Lorazepam (Ativan) 1 mg STAT STAT PO Last administered on 04/12/17 13:04; Start 04/12/17 at 12:42; Stop 04/12/17 at 12:44; Status DC Lorazepam (Ativan) 1 mg TID PO Last administered on 03/19/17 08:04; Start 08/05 at 16:00; Stop 03/19/17 at 11:02; Status DC Lorazepam (Ativan) 1 mg TID PO Last administered on 03/26/17 08:06; Start at 21:00; Stop 03/26/17 at 11:14; Status DC Lorazepam (Ativan) 1 mg TID PRN PO Anxiety Last administered on 03/19/17 16:11 ; Start 03/19/17 at 11:15; Stop 03/21/17 at 16:07; Status DC Lorazepam (Ativan) 2 mg STAT STAT IM ; Start 04/12/17 at 17:45; Stop 04/12/17 at 17:47; Status DC Lorazepam (Ativan) 2 mg STAT STAT PO Last administered on 04/12/17 17:51; Start 04/12/17 at 17:43; Stop 04/12/17 at 17:45; Status DC Lorazepam (Ativan) 4 mg Q8HP PRN PO ANXIETY AGITATION Last administered on 04/16 18:28; Start 04/14/17 at 16:00; Stop 04/27/17 at 15:59 Magnesium Hydroxide (Milk Of Magnesia) 30 ml DAILYPRN PRN PO CONSTIPATION; Start 02/03/17 at 15:45; Stop 03/05/17 at 15:44; Status DC Magnesium Hydroxide (Milk Of Magnesia) 30 ml DAILYPRN PRN PO CONSTIPATION Last administered on 03/24/17 15:50; Start 03/05/17 at 19:15; Stop 04/11/17 at 20:35 ; Status DC Magnesium Hydroxide (Milk Of Magnesia) 30 ml DAILYPRN PRN PO CONSTIPATION; Start 04/14/17 at 15:45; Stop 05/14/17 at 15:44 Metoprolol Tartrate (Lopressor) 25 mg BID PO Last administered on 04/12/17 19: 43; Start 04/12/17 at 21:00; Stop 04/12/17 at 21:59; Status DC Metoprolol Tartrate (Lopressor) 25 mg BID PO Last administered on 04/23/17 08: 00; Start 04/14/17 at 21:00; Stop 05/14/17 at 20:59 Mirtazapine (Remeron) 15 mg QHS PO Last administered on 02/27/17 21:37; Start 02/04/17 at 21:00; Stop 02/28/17 at 09:19; Status DC Mirtazapine (Remeron) 30 mg QHS PO Last administered on 03/18/17 20:56; Start 02/28/17 at 21:00; Stop 03/19/17 at 11:02; Status DC Mirtazapine (Remeron) 30 mg QHS PO Last administered on 04/22/17 20:05; Start 04/21/17 at 21:00; Stop 05/21/17 at 20:59 Mirtazapine (Remeron) 30 mg QHS PRN PO Insomnia; Start 03/19/17 at 11:15; Stop 03/21/17 at 16:05; Status DC Mirtazapine (Remeron) 45 mg QHS PO ; Start 04/12/17 at 21:00; Stop 04/12/17 at 21:59; Status DC Mirtazapine (Remeron) 45 mg QHS PO Last administered on 04/20/17 20:46; Start 04/14/17 at 21:00; Stop 04/21/17 at 14:45; Status DC Mirtazapine (Remeron) 45 mg QHSP PRN PO Insomnia Last administered on 20:35; Start 03/21/17 at 16:15; Stop 04/11/17 at 20:35; Status DC Miscellaneous (Unresolved Clarification Entry) SEE LABEL COMMENTS UNRESOLVED XX ; Start 03/07/17 at 00:01; Stop 03/10/17 at 15:08; Status DC Nicotine (Nicoderm Cq 14mg) 1 patch DAILY TD Last administered on 04/23/17 08: 00; Start 04/15/17 at 09:00; Stop 05/15/17 at 08:59 Nicotine (Nicoderm Cq 21mg) 1 patch DAILY TD Last administered on 04/11/17 07: 49; Start 02/04/17 at 09:00; Stop 04/11/17 at 20:35; Status DC Nicotine (Nicoderm Cq 21mg) 1 patch DAILY TD Last administered on 04/12/17 14: 54; Start 04/12/17 at 09:00; Stop 04/12/17 at 21:59; Status DC Olanzapine (ZyPREXA) 10 mg DAILY PO Last administered on 02/04/17 08:59; Start 02/03/17 at 09:00; Stop 02/04/17 at 14:20; Status DC Quetiapine Fumarate (SEROquel) 200 mg QHS PO ; Start 02/04/17 at 21:00; Stop at 13:42; Status DC Trazodone HCl (Desyrel) 50 mg QHSP PRN PO INSOMNIA; Start 02/03/17 at 16:45; Stop 03/05/17 at 16:44; Status Cancel Trazodone HCl (Desyrel) 50 mg QHSP PRN PO INSOMNIA Last administered on 21:49; Start 02/28/17 at 12:45; Stop 03/10/17 at 15:11; Status DC Venlafaxine HCl (Effexor Xr) 75 mg DAILY PO Last administered on 02/06/17 08:28; Start 02/04/17 at 09:00; Stop 02/06/17 at 18:02; Status DC Venlafaxine HCl (Effexor Xr) 150 mg BID PO Last administered on 04/11/17 07:48; Start 03/07/17 at 09:00; Stop 04/11/17 at 20:35; Status DC Venlafaxine HCl (Effexor Xr) 150 mg BID PO ; Start 04/12/17 at 21:00; Stop 04/12/17 at 21:59; Status DC Venlafaxine HCl (Effexor Xr) 150 mg QHS PO Last administered on 02/23/17 21 :05; Start 02/07/17 at 21:00; Stop 02/24/17 at 17:59; Status DC Venlafaxine HCl (Effexor) 150 mg BID PO Last administered on 03/06/17 20:04; Start 02/24/17 at 21:00; Stop 03/06/17 at 23:26; Status DC Venlafaxine HCl (Effexor) 150 mg BID PO Last administered on 04/23/17 07:59; Start 04/14/17 at 21:00; Stop 05/14/17 at 20:59 Allergies Coded Allergies: Loxapine (Verified Allergy, Mild, 01/21/13) Thiothixene (Verified Allergy, Mild, 01/21/13) Fluphenazine (Verified Allergy, Unknown, 09/12/15) UNKNOWN [place] (Verified Allergy, Unknown, UNKNOWN, 09/12/15) Meperidine (Verified Allergy, Unknown, UNKNOWN, 09/12/15) Phenothiazines (Verified Allergy, Unknown, UNKNOWN, 09/12/15) Thioridazine (Verified Allergy, Unknown, UNKNOWN, 09/12/15) KELVIN GARIBAY MD Apr 23, 2017 17:17
[2017-04-23] MEDS: MIRTAZAPINE 15 MG TAB PO SCH (20:02)
[2017-04-24] MEDS: VENLAFAXINE 37.5 MG TAB PO SCH ×2 (08:58→20:41)
[2017-04-24] MEDS: NICOTINE 14 MG/24 HR TRANSDERMAL TD SCH (08:58)
[2017-04-24] MEDS: METOPROLOL TART 25 MG TABLET PO SCH ×2 (08:59→20:43)
[2017-04-24] MEDS: CEFDINIR 300 MG CAP (OMNICEF) PO SCH ×2 (08:59→20:41)
[2017-04-24] MEDS: GABAPENTIN 300 MG CAP PO SCH ×3 (08:59→20:40)
[2017-04-24] MEDS: ARIPiprazole 10 MG TAB PO SCH ×2 (08:59→20:41)
--- NOTE | 2017-04-24 19:10 | MHIPNPDOC ---
[facility] Progress Note Progress Note DATE OF SERVICE: 04/24/17 INTERVAL HISTORY: Medication Side effects: Denies medication side effects, he says he is O.K without Clozaril, he reports feeling good with Abilify, Haldol, Gabapentin and a lower dose of Remeron. Behavior: Continues to be isolated to his room but he is more communicative, more verbal, shares much more of his personal life with some staff members. Group Attendance: Attends some groups Psychiatric Symptom change: Major improvement in verbal communication. VITAL SIGNS: See below. NEW TEST RESULTS: See below CURRENT MEDICATIONS: See below. MENTAL STATUS EXAMINATION: General: Alert, cooperative, poor eye contact, dressed in personal clothes with good hygiene and proper attire. Speech: Spontaneous, coherent. Thought processes: More organized, although at time he confuses the characters he is talking about, for example, his ex with his girlfriend. Thought content: About been tired of being "locked in" at the [facility] Abstract reasoning, and computation: Fair Description of associations: Improved, mostly good. Description of abnormal or psychotic thoughts: Paranoid and persecutory delusions are present, although less pronounced than before.He says he used to feel scared at his apartment in [place] because some people used to come over and sit in front of his place and he used to think they were after him.Denies auditory and visual hallucinations, denies suicidal and homicidal ideation. Judgment: Limited Insight: Limited Orientation: Oriented to place, person and partially to time. Recent and remote memory: Limited due to cognitive impairment secondary to chronic mental illness Attention span and concentration: Fair Fund of knowledge: Fair Mood: "I'm O.K" Affect: Constricted DIAGNOSES: 1. Paranoid schizophrenia. 2. Major depressive disorder. ASSESSMENT: continues to be paranoid and suspicious but less than before. By being able to share part of his personal history, it means he is more trusting, less paranoid. His mood and affect are brighter, so we are able to see that part of his decompensation was not only the psychotic disorder but the mood disorder. MANAGEMENT PLAN: Medications: Will continue the same medications Psychotherapy: Will encourage him to attend ALL groups Social: Will encourage him to interact more with peers and staff Misc: None Disposition: Patient needs to be transferred to [facility] for long-term treatment and a higher level of care but if they refuse to take him he could be discharged home if he continues improving. Today he was really doing great, but this started a couple of days ago, before he suffered his medical complications and when he was readmitted to our unit, he started getting better. Vital Signs Vital Signs Date Time Temp Pulse Resp B/P (MAP) Pulse Ox O2 Delivery O2 Flow Rate FiO2 04/24/17 08:59 90 133/80 04/23/17 07:14 98.1 18 Room Air Current Medications Current Medications Acetaminophen (Tylenol Tab) 650 mg Q6HP PRN PO HEADACHE or DISCOMFORT Last administered on 04/11/17 06:17; Start 02/03/17 at 15:45; Stop 04/11/17 at 20:35 ; Status DC Acetaminophen (Tylenol Tab) 650 mg Q6HP PRN PO HEADACHE or DISCOMFORT; Start at 19:15; Stop 04/04/17 at 19:14; Status Cancel Acetaminophen (Tylenol Tab) 650 mg Q6HP PRN PO HEADACHE or DISCOMFORT; Start at 15:45; Stop 05/14/17 at 15:44 Al Hydrox/Mg Hydrox/Simethicone (Mylanta) 30 ml Q4HP PRN PO HEARTBURN/ INDIGESTION; Start 02/03/17 at 15:45; Stop 03/05/17 at 15:44; Status DC Al Hydrox/Mg Hydrox/Simethicone (Mylanta) 30 ml Q4HP PRN PO HEARTBURN/ INDIGESTION Last administered on 04/01/17 22:41; Start 03/05/17 at 19:30; Stop 04/11/17 at 20:35; Status DC Al Hydrox/Mg Hydrox/Simethicone (Mylanta) 30 ml Q4HP PRN PO HEARTBURN/ INDIGESTION; Start 03/06/17 at 10:00; Stop 04/04/17 at 09:59; Status Cancel Al Hydrox/Mg Hydrox/Simethicone (Mylanta) 30 ml Q4HP PRN PO HEARTBURN/ INDIGESTION Last administered on 04/14/17 23:36; Start 04/14/17 at 15:45; Stop 05/14/17 at 15:44 Aripiprazole (AbiLIFY) 2.5 mg QHS PO Last administered on 02/16/17 20:07; Start 02/07/17 at 21:00; Stop 02/17/17 at 12:25; Status DC Aripiprazole (AbiLIFY) 5 mg QHS PO Last administered on 02/23/17 21:06; Start 02/17/17 at 21:00; Stop 02/24/17 at 17:48; Status DC Aripiprazole (AbiLIFY) 7.5 mg BID PO Last administered on 02/25/17 08:02; Start 02/24/17 at 21:00; Stop 02/25/17 at 11:54; Status DC Aripiprazole (AbiLIFY) 10 mg BID PO Last administered on 03/21/17 08:19; Start 03/18/17 at 21:00; Stop 03/21/17 at 16:03; Status DC Aripiprazole (AbiLIFY) 10 mg BID PO Last administered on 03/03/17 08:14; Start 02/25/17 at 21:00; Stop 03/03/17 at 10:13; Status DC Aripiprazole (AbiLIFY) 15 mg BID PO Last administered on 03/08/17 08:08; Start 03/03/17 at 21:00; Stop 03/08/17 at 08:14; Status DC Aripiprazole (AbiLIFY) 15 mg BID PO ; Start 03/08/17 at 09:00; Stop 04/02/17 at 20:59; Status Cancel Aripiprazole (AbiLIFY) 15 mg BID PO Last administered on 03/10/17 08:03; Start 03/08/17 at 21:00; Stop 03/10/17 at 15:14; Status DC Aripiprazole (AbiLIFY) 15 mg BID PO Last administered on 03/18/17 08:37; Start 03/14/17 at 21:00; Stop 03/18/17 at 12:15; Status DC Aripiprazole (AbiLIFY) 15 mg BID PO Last administered on 03/25/17 08:05; Start 03/21/17 at 21:00; Stop 03/25/17 at 16:17; Status DC Aripiprazole (AbiLIFY) 20 mg BID PO Last administered on 03/14/17 08:05; Start 03/10/17 at 21:00; Stop 03/14/17 at 14:42; Status DC Aripiprazole (AbiLIFY) 20 mg BID PO ; Start 04/12/17 at 21:00; Stop 04/12/17 at 21:59; Status DC Aripiprazole (AbiLIFY) 20 mg BID PO Last administered on 04/24/17 08:59; Start 04/14/17 at 21:00; Stop 05/14/17 at 20:59 Aripiprazole (AbiLIFY) 20 mg BID PO Last administered on 04/11/17 07:48; Start 03/25/17 at 21:00; Stop 04/11/17 at 20:35; Status DC Aspirin (Aspirin Chewable) 81 mg DAILY PO Last administered on 04/12/17 19:58 ; Start 04/12/17 at 09:00; Stop 04/12/17 at 21:59; Status DC Aspirin (Aspirin) 325 mg DAILY PO ; Start 04/14/17 at 09:00; Stop 04/14/17 at 16 :11; Status DC Aspirin (Aspirin) 325 mg DAILY PO ; Start 04/15/17 at 09:00; Stop 04/15/17 at 09 :00; Status DC Benztropine Mesylate (Cogentin) 0.5 mg BID PO Last administered on 02/23/17 08: 43; Start 02/04/17 at 09:00; Stop 02/23/17 at 13:41; Status DC Benztropine Mesylate (Cogentin) 1 mg BID PO Last administered on 03/14/17 08: 05; Start 02/23/17 at 09:00; Stop 03/14/17 at 16:09; Status DC Benztropine Mesylate (Cogentin) 1 mg TID PO Last administered on 03/24/17 20:11 ; Start 03/14/17 at 21:00; Stop 03/25/17 at 08:59; Status DC Buspirone HCl (Buspar) 7.5 mg TID PO Last administered on 02/26/17 08:04; Start 02/04/17 at 16:00; Stop 02/26/17 at 12:48; Status DC Cefdinir (Omnicef) 300 mg BID PO ; Start 04/12/17 at 21:00; Stop 04/12/17 at 21: 59; Status DC Cefdinir (Omnicef) 300 mg BID PO Last administered on 04/24/17 08:59; Start at 21:00; Stop 04/27/17 at 20:59 Clozapine (Clozaril) 25 mg QHS PO Last administered on 03/20/17 21:41; Start at 21:00; Stop 03/21/17 at 08:59; Status DC Clozapine (Clozaril) 50 mg QAM PO Last administered on 03/18/17 08:37; Start 03/14/17 at 09:00; Stop 03/18/17 at 21:20; Status DC Clozapine (Clozaril) 50 mg QHS PO Last administered on 03/25/17 22:42; Start at 21:00; Stop 03/27/17 at 13:55; Status DC Clozapine (Clozaril) 75 mg QHS PO Last administered on 04/09/17 20:17; Start 03/27/17 at 21:00; Stop 04/10/17 at 14:36; Status DC Clozapine (Clozaril) 100 mg QHS PO Last administered on 04/09/17 20:17; Start 04/03/17 at 21:00; Stop 04/10/17 at 14:34; Status DC Clozapine (Clozaril) 150 mg QHS PO ; Start 04/10/17 at 21:00; Stop 04/17/17 at 20:59; Status Cancel Clozapine (Clozaril) 150 mg QHS PO ; Start 04/11/17 at 21:00; Stop 04/11/17 at 21:00; Status Cancel Clozapine (Clozaril) 200 mg QHS PO Last administered on 04/10/17 20:03; Start 04/10/17 at 21:00; Stop 04/11/17 at 11:18; Status DC Diphenhydramine HCl (Benadryl) 50 mg STAT STAT IM ; Start 04/12/17 at 17:45; Stop 04/12/17 at 17:47; Status DC Diphenhydramine HCl (Benadryl) 50 mg STAT STAT PO Last administered on 13:04; Start 04/12/17 at 12:41; Stop 04/12/17 at 12:42; Status DC Diphenhydramine HCl (Benadryl) 50 mg STAT STAT PO Last administered on 17:51; Start 04/12/17 at 17:43; Stop 04/12/17 at 17:45; Status DC Docusate Sodium (Colace) 100 mg BID PO Last administered on 04/11/17 07:48; Start 02/03/17 at 21:00; Stop 04/11/17 at 20:35; Status DC Gabapentin (Neurontin) 100 mg QAM PO Last administered on 02/24/17 08:14; Start 02/04/17 at 09:00; Stop 02/24/17 at 17:59; Status DC Gabapentin (Neurontin) 200 mg QAM PO Last administered on 03/19/17 08:04; Start 02/25/17 at 09:00; Stop 03/19/17 at 11:00; Status DC Gabapentin (Neurontin) 300 mg QHS PO Last administered on 04/10/17 20:03; Start 03/21/17 at 21:00; Stop 04/11/17 at 20:35; Status DC Gabapentin (Neurontin) 300 mg QHS PO ; Start 04/12/17 at 21:00; Stop 04/12/17 at 21:59; Status DC Gabapentin (Neurontin) 300 mg QHS PO Last administered on 04/23/17 20:01; Start 04/14/17 at 21:00; Stop 05/14/17 at 20:59 Gabapentin (Neurontin) 300 mg TID PO ; Start 03/21/17 at 21:00; Stop 03/21/17 at 21:00; Status DC Gabapentin (Neurontin) 400 mg QHS PO Last administered on 03/18/17 20:56; Start 02/04/17 at 21:00; Stop 03/19/17 at 11:00; Status DC Gabapentin (Neurontin) 600 mg BID PO ; Start 04/14/17 at 21:00; Stop 04/14/17 at 21:00; Status DC Gabapentin (Neurontin) 600 mg BID@0900,1600 PO Last administered on 04/11/17 07:48; Start 03/21/17 at 16:00; Stop 04/11/17 at 20:35; Status DC Gabapentin (Neurontin) 600 mg BID@0900,1600 PO Last administered on 04/12/17 14:54; Start 04/12/17 at 16:00; Stop 04/12/17 at 21:59; Status DC Gabapentin (Neurontin) 600 mg BID@0900,1600 PO Last administered on 04/24/17 16 :16; Start 04/14/17 at 16:00; Stop 05/14/17 at 15:59 Haloperidol (Haldol) 10 mg Q8HP PRN PO ANXIETY/AGITATION; Start 04/14/17 at 15: 45; Stop 05/14/17 at 15:44 Haloperidol (Haldol) 10 mg STAT STAT IM ; Start 04/12/17 at 17:45; Stop at 17:47; Status DC Haloperidol (Haldol) 10 mg STAT STAT PO Last administered on 04/12/17 13:04; Start 04/12/17 at 12:40; Stop 04/12/17 at 12:42; Status DC Haloperidol (Haldol) 10 mg STAT STAT PO Last administered on 04/12/17 17:51; Start 04/12/17 at 17:43; Stop 04/12/17 at 17:45; Status DC Haloperidol Decanoate (Haldol Decanoate) 50 mg Q14D IM Last administered on 09:23; Start 04/15/17 at 09:00; Stop 05/15/17 at 08:59 Haloperidol Decanoate (Haldol Decanoate) 50 mg Q14D STAT IM ; Start 02/18/17 at 20:24; Stop 02/18/17 at 20:25; Status Cancel Haloperidol Decanoate (Haldol Decanoate) 50 mg Q14D@0900 IM Last administered on 04/01/17 10:33; Start 03/18/17 at 09:00; Stop 04/11/17 at 20:35; Status DC Haloperidol Decanoate (Haldol Decanoate) 50 mg Q14D@14 IM Last administered on 03/04/17 13:27; Start 02/04/17 at 14:00; Stop 03/06/17 at 13:59; Status DC Home Med (Med Rec Complete!) ASDIRECTED XX ; Start 02/03/17 at 12:15; Stop at 12:15; Status DC Lorazepam (Ativan) 1 mg Q6HP PRN PO ANXIETY; Start 04/12/17 at 14:30; Stop at 21:59; Status DC Lorazepam (Ativan) 1 mg Q8HP PRN PO ANXIETY/AGITATION Last administered on 20:52; Start 02/03/17 at 15:45; Stop 02/26/17 at 12:48; Status DC Lorazepam (Ativan) 1 mg STAT STAT PO Last administered on 04/12/17 13:04; Start 04/12/17 at 12:42; Stop 04/12/17 at 12:44; Status DC Lorazepam (Ativan) 1 mg TID PO Last administered on 03/19/17 08:04; Start 08/05 at 16:00; Stop 03/19/17 at 11:02; Status DC Lorazepam (Ativan) 1 mg TID PO Last administered on 03/26/17 08:06; Start at 21:00; Stop 03/26/17 at 11:14; Status DC Lorazepam (Ativan) 1 mg TID PRN PO Anxiety Last administered on 03/19/17 16:11 ; Start 03/19/17 at 11:15; Stop 03/21/17 at 16:07; Status DC Lorazepam (Ativan) 2 mg STAT STAT IM ; Start 04/12/17 at 17:45; Stop 04/12/17 at 17:47; Status DC Lorazepam (Ativan) 2 mg STAT STAT PO Last administered on 04/12/17 17:51; Start 04/12/17 at 17:43; Stop 04/12/17 at 17:45; Status DC Lorazepam (Ativan) 4 mg Q8HP PRN PO ANXIETY AGITATION Last administered on 04/16 18:28; Start 04/14/17 at 16:00; Stop 04/27/17 at 15:59 Magnesium Hydroxide (Milk Of Magnesia) 30 ml DAILYPRN PRN PO CONSTIPATION; Start 02/03/17 at 15:45; Stop 03/05/17 at 15:44; Status DC Magnesium Hydroxide (Milk Of Magnesia) 30 ml DAILYPRN PRN PO CONSTIPATION Last administered on 03/24/17 15:50; Start 03/05/17 at 19:15; Stop 04/11/17 at 20:35 ; Status DC Magnesium Hydroxide (Milk Of Magnesia) 30 ml DAILYPRN PRN PO CONSTIPATION; Start 04/14/17 at 15:45; Stop 05/14/17 at 15:44 Metoprolol Tartrate (Lopressor) 25 mg BID PO Last administered on 04/12/17 19: 43; Start 04/12/17 at 21:00; Stop 04/12/17 at 21:59; Status DC Metoprolol Tartrate (Lopressor) 25 mg BID PO Last administered on 04/24/17 08: 59; Start 04/14/17 at 21:00; Stop 05/14/17 at 20:59 Mirtazapine (Remeron) 15 mg QHS PO Last administered on 02/27/17 21:37; Start 02/04/17 at 21:00; Stop 02/28/17 at 09:19; Status DC Mirtazapine (Remeron) 30 mg QHS PO Last administered on 03/18/17 20:56; Start 02/28/17 at 21:00; Stop 03/19/17 at 11:02; Status DC Mirtazapine (Remeron) 30 mg QHS PO Last administered on 04/23/17 20:02; Start 04/21/17 at 21:00; Stop 05/21/17 at 20:59 Mirtazapine (Remeron) 30 mg QHS PRN PO Insomnia; Start 03/19/17 at 11:15; Stop 03/21/17 at 16:05; Status DC Mirtazapine (Remeron) 45 mg QHS PO ; Start 04/12/17 at 21:00; Stop 04/12/17 at 21:59; Status DC Mirtazapine (Remeron) 45 mg QHS PO Last administered on 04/20/17 20:46; Start 04/14/17 at 21:00; Stop 04/21/17 at 14:45; Status DC Mirtazapine (Remeron) 45 mg QHSP PRN PO Insomnia Last administered on 20:35; Start 03/21/17 at 16:15; Stop 04/11/17 at 20:35; Status DC Miscellaneous (Unresolved Clarification Entry) SEE LABEL COMMENTS UNRESOLVED XX ; Start 03/07/17 at 00:01; Stop 03/10/17 at 15:08; Status DC Nicotine (Nicoderm Cq 14mg) 1 patch DAILY TD Last administered on 04/24/17 08: 58; Start 04/15/17 at 09:00; Stop 05/15/17 at 08:59 Nicotine (Nicoderm Cq 21mg) 1 patch DAILY TD Last administered on 04/11/17 07: 49; Start 02/04/17 at 09:00; Stop 04/11/17 at 20:35; Status DC Nicotine (Nicoderm Cq 21mg) 1 patch DAILY TD Last administered on 04/12/17 14: 54; Start 04/12/17 at 09:00; Stop 04/12/17 at 21:59; Status DC Olanzapine (ZyPREXA) 10 mg DAILY PO Last administered on 02/04/17 08:59; Start 02/03/17 at 09:00; Stop 02/04/17 at 14:20; Status DC Quetiapine Fumarate (SEROquel) 200 mg QHS PO ; Start 02/04/17 at 21:00; Stop at 13:42; Status DC Trazodone HCl (Desyrel) 50 mg QHSP PRN PO INSOMNIA; Start 02/03/17 at 16:45; Stop 03/05/17 at 16:44; Status Cancel Trazodone HCl (Desyrel) 50 mg QHSP PRN PO INSOMNIA Last administered on 21:49; Start 02/28/17 at 12:45; Stop 03/10/17 at 15:11; Status DC Venlafaxine HCl (Effexor Xr) 75 mg DAILY PO Last administered on 02/06/17 08:28; Start 02/04/17 at 09:00; Stop 02/06/17 at 18:02; Status DC Venlafaxine HCl (Effexor Xr) 150 mg BID PO Last administered on 04/11/17 07:48; Start 03/07/17 at 09:00; Stop 04/11/17 at 20:35; Status DC Venlafaxine HCl (Effexor Xr) 150 mg BID PO ; Start 04/12/17 at 21:00; Stop 04/12/17 at 21:59; Status DC Venlafaxine HCl (Effexor Xr) 150 mg QHS PO Last administered on 02/23/17 21 :05; Start 02/07/17 at 21:00; Stop 02/24/17 at 17:59; Status DC Venlafaxine HCl (Effexor) 150 mg BID PO Last administered on 03/06/17 20:04; Start 02/24/17 at 21:00; Stop 03/06/17 at 23:26; Status DC Venlafaxine HCl (Effexor) 150 mg BID PO Last administered on 04/24/17 08:58; Start 04/14/17 at 21:00; Stop 05/14/17 at 20:59 Allergies Coded Allergies: Loxapine (Verified Allergy, Mild, 01/21/13) Thiothixene (Verified Allergy, Mild, 01/21/13) Fluphenazine (Verified Allergy, Unknown, 09/12/15) UNKNOWN [place] (Verified Allergy, Unknown, UNKNOWN, 09/12/15) Meperidine (Verified Allergy, Unknown, UNKNOWN, 09/12/15) Phenothiazines (Verified Allergy, Unknown, UNKNOWN, 09/12/15) Thioridazine (Verified Allergy, Unknown, UNKNOWN, 09/12/15) KELVIN GARIBAY MD Apr 24, 2017 19:10
[2017-04-24] MEDS: MIRTAZAPINE 15 MG TAB PO SCH (20:41)
[2017-04-25] MEDS: ARIPiprazole 10 MG TAB PO SCH ×2 (08:12→21:28)
[2017-04-25] MEDS: NICOTINE 14 MG/24 HR TRANSDERMAL TD SCH (08:12)
[2017-04-25] MEDS: VENLAFAXINE 37.5 MG TAB PO SCH ×2 (08:12→21:29)
[2017-04-25] MEDS: GABAPENTIN 300 MG CAP PO SCH ×3 (08:12→21:28)
[2017-04-25] MEDS: METOPROLOL TART 25 MG TABLET PO SCH ×2 (08:12→21:29)
[2017-04-25] MEDS: CEFDINIR 300 MG CAP (OMNICEF) PO SCH ×2 (08:12→21:29)
[2017-04-25] MEDS: MIRTAZAPINE 15 MG TAB PO SCH (22:24)
[2017-04-26 06:44] VITALS: BP 96/55
[2017-04-26] MEDS: ARIPiprazole 10 MG TAB PO SCH ×2 (08:03→22:14)
[2017-04-26] MEDS: METOPROLOL TART 25 MG TABLET PO SCH ×2 (08:03→22:14)
[2017-04-26] MEDS: VENLAFAXINE 37.5 MG TAB PO SCH ×2 (08:03→22:14)
[2017-04-26] MEDS: GABAPENTIN 300 MG CAP PO SCH ×3 (08:03→22:13)
[2017-04-26] MEDS: NICOTINE 14 MG/24 HR TRANSDERMAL TD SCH (08:03)
[2017-04-26] MEDS: CEFDINIR 300 MG CAP (OMNICEF) PO SCH ×2 (08:03→22:13)
--- NOTE | 2017-04-26 09:14 | IPN ---
DATE: 04/25/2017 MEDICATION SIDE EFFECTS: He states that he feels okay, less sleepy than when he was taking Remeron 45 mg by mouth at bedtime. BEHAVIOR: He has not had violent or aggressive outbursts, continues to be isolated to his room, but his attitude is less guarded, less suspicious. GROUP ATTENDANCE: Continue to attend most of the groups, although in some of them he does not participate. PSYCHIATRIC SYMPTOM CHANGE: He looks much improved, he looks relaxed, less anxious, less scare and less irritable. He communicates his feelings and his ideas very clearly. VITAL SIGNS: See below. NEW TEST RESULTS: None. CURRENT MEDICATIONS: See below. MENTAL STATUS EXAMINATION: GENERAL: Alert, cooperative, dressed his personal clothes, with good eye contact, good rapport and pleasant attitude. Speech is spontaneous, coherent. Thought process organized, linear, goal directed. Thought content about going home, planning about his future mental health care because he worries about [facility] closing his case two weeks ago. ABSTRACT REASONING AND COMPUTATION: Limited due to the patient's chronic mental illness. DESCRIPTION OF ASSOCIATIONS: Not loose. DESCRIPTION OF ABNORMAL OR PSYCHOTIC THOUGHTS: The patient denies homicidal or suicidal ideation. Denies auditory and visual hallucinations. He has not been seen responding to internal stimuli, but continues to be a little bit paranoid. Judgment limited. Insight limited. ORIENTATION: He is oriented to place, person, month and year, but not exactly to date. RECENT AND REMOTE MEMORY: Limited due to chronic mental illness that has caused cognitive impairment. ATTENTION SPAN AND CONCENTRATION: Fair. FUND OF KNOWLEDGE: Adequate. mood: "I'm okay of going back zeenat." AFFECT: Constricted. DIAGNOSIS: 1. Paranoid schizophrenia. 2. Major depressive disorder. ASSESSMENT: Patient continues to be stable, has improved in his mood and in his delusional state. He is still paranoid, but much less than he was before. He is less guarded, less defensive and less suspicious. MANAGEMENT PLAN: Will continue on the same medications, will continue with group psychotherapy and individual psychotherapy. DISPOSITION: Patient probably will need more days of inpatient mental health unit while the case making machine operator is able to connect him to [facility] for his in home services in [place] and that will probably take a couple of days of next week. If he is taken back by [facility], he will be able to be discharged home and continue with all his services over there. Will followup.
[2017-04-26 18:00] VITALS: BP 103/56
[2017-04-26] MEDS: MIRTAZAPINE 15 MG TAB PO SCH (22:13)
[2017-04-27 06:00] VITALS: BP 98/52
[2017-04-27] MEDS: NICOTINE 14 MG/24 HR TRANSDERMAL TD SCH (08:51)
[2017-04-27] MEDS: ARIPiprazole 10 MG TAB PO SCH ×2 (08:52→21:31)
[2017-04-27] MEDS: METOPROLOL TART 25 MG TABLET PO SCH ×2 (08:53→21:32)
[2017-04-27] MEDS: VENLAFAXINE 37.5 MG TAB PO SCH ×2 (08:53→21:31)
[2017-04-27] MEDS: CEFDINIR 300 MG CAP (OMNICEF) PO SCH ×2 (08:54→21:31)
[2017-04-27] MEDS: GABAPENTIN 300 MG CAP PO SCH ×3 (08:54→21:31)
[2017-04-27 18:00] VITALS: BP 117/75
[2017-04-27] MEDS: MIRTAZAPINE 15 MG TAB PO SCH (22:30)
[2017-04-28 06:54] VITALS: BP 93/55
[2017-04-28] MEDS: ARIPiprazole 10 MG TAB PO SCH ×2 (09:03→21:33)
[2017-04-28] MEDS: NICOTINE 14 MG/24 HR TRANSDERMAL TD SCH (09:03)
[2017-04-28] MEDS: VENLAFAXINE 37.5 MG TAB PO SCH ×2 (09:04→21:33)
[2017-04-28] MEDS: METOPROLOL TART 25 MG TABLET PO SCH ×2 (09:04→21:33)
[2017-04-28] MEDS: GABAPENTIN 300 MG CAP PO SCH ×3 (09:04→21:33)
[2017-04-28] MEDS: CEFDINIR 300 MG CAP (OMNICEF) PO SCH ×2 (09:05→21:33)
[2017-04-28 18:00] VITALS: BP 110/60
[2017-04-28] MEDS: MIRTAZAPINE 15 MG TAB PO SCH (22:50)
[2017-04-29 06:21] VITALS: BP 133/71
--- NOTE | 2017-04-29 07:13 | IPN ---
DATE OF VISIT: 04/28/2017 MEDICATIONS SIDE EFFECTS: The patient denies medication side effects. He says he is okay with current medications. He does not want any medication to be decreased or increased. BEHAVIOR: The patient has been noticed to be much more stable although he continues to be isolated to his room. He has not had violent outbursts. GROUP ATTENDANCE: The patient has been attending mostly all of the groups. PSYCHIATRIC SYMPTOM CHANGE: The patient has been showing great improvement regarding verbal communication and also in his attitude, he is less aggressive, he is less suspicious. VITAL SIGNS: See below. NEW TEST RESULTS: See below. CURRENT MEDICATIONS: See below. MENTAL STATUS EXAMINATION: GENERAL: Alert, cooperative with good eye contact today compared to previous days, dressed in personal clothes with good hygiene. Speech is spontaneous although occasionally it is chapis slow because he has to rethink what he is going to say. Thought process is more organized than it was before. Thought content is about willing to be discharged from the inpatient mental health unit, he wants to go back to his apartment. Abstract reasoning and computations are fair at this time. Description of associations: There is no loosening of associations. Description of abnormal or psychotic thoughts: The patient still has paranoid delusions but they are very mild compared to how he was a couple of weeks ago. He denies auditory or visual hallucinations, denies suicidal or homicidal ideations. Insight and judgment have improved. Orientation: He is oriented to place, person and partially to date and time. Recent and remote memory is fair, has been improving during the last two or three days. Unfortunately he as memory lapses, sometimes he is able to recall somethings, sometimes he is not able to do it and this film writer believes these changes are due to the cognitive impairment that is secondary to the chronic mental illness. Attention span and concentration: Fair. Fund of knowledge: Fair. Mood: " I'm good." Affect: Continues to be constricted. DIAGNOSES: 1. Paranoid schizophrenia . 2. Major depressive disorder. ASSESSMENT: The patient continues to be very stable, he is less paranoid than he was before. His mood and affect are brighter. MANAGEMENT PLAN: Medications will continue with the same medications. Psychotherapy will encourage him to attend all groups. Social will encourage him to interact more with peers and staff. Miscellaneous: None. DISPOSITION: The patient will be discharged home but needs health care social worker in place. [facility] case and a bilingual patient support caseworker has been in contact with them and has requested for them to take him back and provide him with all of his services. If he would be able to obtain [facility] services again, bilingual patient support caseworker here will be able to connect him to services so that he continues receiving medications and psychotherapy. At this moment, the patient is very stable and did not seem to be in danger to self or others. Will followup.
[2017-04-29] MEDS: CEFDINIR 300 MG CAP (OMNICEF) PO SCH ×2 (08:34→21:29)
[2017-04-29] MEDS: ARIPiprazole 10 MG TAB PO SCH ×2 (08:34→21:29)
[2017-04-29] MEDS: NICOTINE 14 MG/24 HR TRANSDERMAL TD SCH (08:34)
[2017-04-29] MEDS: VENLAFAXINE 37.5 MG TAB PO SCH ×2 (08:34→21:29)
[2017-04-29] MEDS: METOPROLOL TART 25 MG TABLET PO SCH ×2 (08:34→21:29)
[2017-04-29] MEDS: GABAPENTIN 300 MG CAP PO SCH ×3 (08:34→21:29)
[2017-04-29] MEDS: HALOPERIDOL DECANOATE 100 MG/ML VIAL (J1631) IM SCH (09:07)
[2017-04-29 18:00] VITALS: BP 95/61
[2017-04-29] MEDS: MIRTAZAPINE 15 MG TAB PO SCH (21:00)
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
[2017-04-30] MEDS: ARIPiprazole 10 MG TAB PO SCH ×2 (08:47→22:00)
[2017-04-30] MEDS: CEFDINIR 300 MG CAP (OMNICEF) PO SCH ×2 (08:47→21:00)
[2017-04-30] MEDS: NICOTINE 14 MG/24 HR TRANSDERMAL TD SCH (08:48)
[2017-04-30] MEDS: VENLAFAXINE 37.5 MG TAB PO SCH ×2 (08:48→22:00)
[2017-04-30] MEDS: METOPROLOL TART 25 MG TABLET PO SCH ×2 (08:49→21:00)
[2017-04-30] MEDS: GABAPENTIN 300 MG CAP PO SCH ×3 (09:18→22:00)
--- NOTE | 2017-04-30 12:22 | IPN ---
DATE: 03/29/2017 MEDICATION SIDE EFFECTS: The patient denied medication side effects. BEHAVIOR: The patient has been isolated to his room without any behavioral disturbances. Has not been aggressive or violent. GROUP ATTENDANCE: The patient has been attending some of the groups and participating in some of them. PSYCHIATRIC: Unchanged. The patient is more verbal, communicates better. He is less guarded and less suspicious. VITAL SIGNS: Stable. NEW TEST RESULTS: None. CURRENT MEDICATIONS: There have been no medication changes or adjustments. MENTAL STATUS EXAMINATION: GENERAL: Alert, cooperative, dressed in personal clothes with full eye contact and good rapport. His mood is anxious and his affect is congruent with mood. His speech is spontaneous and fluid. He is less thought blocking than before. His thought process is less disorganized, goal directed. His thought content is coherent, but he worries about not being able to be discharged soon from the inpatient mental health unit because he has remained there too long and he is feeling desperate and frustrated. Abstract reasoning and computation: The patient has a little bit of problem with abstract reasoning and computation because of the nature of his illness. Chronic mental illness causes cognitive impairment. Description of associations: Not loose. Description of abnormal or psychotic thoughts: The patient continues to report paranoid delusions, but they are less frequent and less intense than before. He denies auditory and visual hallucinations. He denies suicidal or homicidal thoughts. Orientation: He is oriented to place, person and time. Recent and remote memory intact. Attention span and concentration are fair. Fund of knowledge is adequate. Affect is constricted. DIAGNOSES: 1. Paranoid schizophrenia. 2. Major depressive disorder. ASSESSMENT: The patient is ready to be discharged. He does not need to go to [facility] or to [place] because he has been stabilized in the inpatient mental health unit, but disease case manager rn is still waiting for response from the [facility] team. They closed his case and we awaiting for a response because they could still accept him as a patient and open up his file by accepting him. We will wait until tomorrow and if the [facility] team does not accept him, then he will be connected to other services in the community that will help him with his followup as an outpatient. We will monitor closely.
--- NOTE | 2017-04-30 13:54 | IPN ---
DATE OF SERVICE: 04/29/2017 MEDICATION SIDE EFFECTS: The patient denies medication side effects and says he does not want any medication changes. BEHAVIOR: The patient has been pleasant, respectful, compliant with rules from the inpatient mental health unit. GROUP ATTENDANCE: He has been attending most of the groups and participating in some of them. PSYCHIATRIC SYMPTOM CHANGE: The patient is anxious because he does not know if he will be accepted by [facility] again, but otherwise he is less guarded and less suspicious than before. His mood and affect are brighter. He is not depressed, but he is a little bit anxious. VITAL SIGNS: Are stable. NEW TEST RESULTS: None. CURRENT MEDICATIONS: There have been no adjustments in medication. MENTAL STATUS EXAMINATION: GENERAL: Alert, oriented times three, pleasant, a little bit worried with good eye contact and good rapport. His mood is anxious, and his affect is constricted. His speech is spontaneous and fluid. His thought process is more organized and goal-directed. His thought content is coherent. Regarding abnormal or psychotic thoughts, he denies homicidal ideation, denies suicidal ideation, denies auditory and visual hallucinations but still admits to have paranoid delusions, although less frequent and less intense than before. Judgment and insight are improving. Orientation, he is oriented times three. Recent and remote memory a little bit impaired due to the cognitive deterioration caused by chronic mental health illness. Attention span and concentration fair. Fund of knowledge is fair. DIAGNOSES: 1. Paranoid schizophrenia. 2. Major depressive disorder. ASSESSMENT: The patient is getting worried because he fears that he will not be taken back by [facility]. Apparently, AT saw the patient had left them since 01/09/2017. For a strange reason, they did not realize that the patient coming to the hospital ([facility]) until 02/03/2017, so they will have to look at the records, and we are going to be waiting for them to go back tomorrow. Since he has not been gone from [facility] for the time that they believed he has been gone, since 01/09/2017, they might take him back. If they do not take him back, anyway, he will be connected to other services where he can receive medication followup and psychotherapy. Will monitor closely and will followup.
[2017-04-30] MEDS: MIRTAZAPINE 15 MG TAB PO SCH (21:00)
[2017-05-01] MEDS: METOPROLOL TART 25 MG TABLET PO SCH ×2 (07:29→20:51)
[2017-05-01] MEDS: NICOTINE 14 MG/24 HR TRANSDERMAL TD SCH (07:30)
[2017-05-01] MEDS ORDERED: ARIPiprazole 10 MG TAB PO SCH (09:00)
[2017-05-01] MEDS: CEFDINIR 300 MG CAP (OMNICEF) PO SCH ×2 (09:00→20:52)
[2017-05-01] MEDS: VENLAFAXINE 37.5 MG TAB PO SCH ×2 (09:00→20:51)
[2017-05-01] MEDS ORDERED: HALOPERIDOL DECANOATE 100 MG/ML VIAL (J1631) IM ONE (09:15)
[2017-05-01] MEDS: LORazepam 2 MG TAB PO PRN (15:39)
[2017-05-01] MEDS: HALOPERIDOL 5 MG TAB PO PRN (15:39)
--- NOTE | 2017-05-01 16:48 | ECGEPIP ---
Stationary ECG Study [facility] Test Date: 2017-05-01 Pat Name: RYAN FLORES Department: Room: [place] [address] Gender: M Neurology Hospitalist: HEVER : 1965 Requested By: KELVIN Hankins Order Number: [id number] Reading MD: José Miguel Briseno Measurements Intervals [place] Rate: 114 P: 58 NV: 165 QRS: -40 QRSD: 92 T: 67 QT: 352 QTc: 487 Interpretive Statements SINUS TACHYCARDIA MARKED LEFT AXIS DEVIATION NONSPECIFIC T-WAVE ABNORMALITY No significant change compared with 04/17/2017. Electronically Signed On 05-01-2017 16:47:53 EDT by José Miguel Briseno
[2017-05-01] MEDS: NICOTINE 21MG/24HR 1 EA TRANSDERMAL TD SCH (17:35)
[2017-05-01 18:00] VITALS: BP 122/64
[2017-05-01] MEDS: LORazepam 2 MG TAB PO SCH (20:51)
[2017-05-01] MEDS: RAMELTEON 8 MG TAB (ROZEREM) PO SCH (20:52)
[2017-05-01] MEDS: PALIPERIDONE 6 MG ER TAB (INVEGA) PO SCH (20:52)
--- NOTE | 2017-05-01 21:00 | IPN ---
DATE: 04/30/2017 MEDICATION SIDE EFFECTS: The patient denies medication side effects, but says he refused last night his Remeron dose because he was excited and he kept making plans about his discharge and what he is going to do at home. BEHAVIOR: Nursing staff reported that last night he became a little bit aggressive, but he was able to contain himself and go back into his room. His levels of frustration have been increasing due to the fact that he has remained for so long at the inpatient mental health unit and he was not taken to [facility] or [facility], which was good because he improved both his symptoms of depression and psychosis, but now it is time for him to go home and he cannot do it because the [facility] team that was taking care of his mental health appointments, who came to his house and checked him up, closed his case. For that reason, he is still waiting at the inpatient mental health unit to have his case reopened by them and if they do not do it then he will be connected to other mental health services. Hopefully tomorrow, 05/01/2017, we will have a response for him and this will decrease his frustration and anxiety. GROUP ATTENDANCE: He continues to attend groups, although not all of them and those that he attends he does not always participate. PSYCHIATRIC SYMPTOM CHANGE: He is becoming more frustrated and anxious. Unfortunately, he was doing much better but unknowing what is going to happen to him, if they are going to take him back, if he is going to have his psychiatric services has made him anxious and a little bit more irritable. VITAL SIGNS: Stable. TEST RESULTS: None. CURRENT MEDICATIONS: There has been no adjustment to medications. MENTAL STATUS EXAMINATION: GENERAL: He is alert, oriented times three, cooperative, pleasant. His speech is sparse but is coherent. His thought process is linear and coherent. His thought content is coherent and he denies auditory and visual hallucinations, but he is still a little bit paranoid and a little bit guarded. He denies suicidal or homicidal ideations. Abstract thinking and computation are slightly impaired due to the cognitive impairment caused by chronic mental illness. Recent and remote memory are slightly impaired (secondary to chronic mental illness). Attention and concentration are fair. His mood is anxious and his affect is congruent and constricted. He is oriented times three. His fund of knowledge is fair. His judgment and insight have improved. His impulse control is good. DIAGNOSES: 1. Paranoid schizophrenia. 2. Major depressive disorder. ASSESSMENT: The patient is getting worried because he fears that he will not be taken back, not only by [facility], but by other community services. The patient has been reassured that he will receive services and that he will have his medications and psychotherapy in place before being discharged. Possible discharge date will be 05/02/2017. If correctional casework specialist is able to get a response from the [facility] team, otherwise he will be connected to other services. We will monitor closely and we will followup. TERRANCE
[2017-05-02] MEDS: LORazepam 2 MG TAB PO SCH (06:00)
[2017-05-02 06:10] VITALS: BP 74/54
[2017-05-02 06:25] VITALS: BP 92/54
[2017-05-02 06:31] VITALS: BP 90/50
[2017-05-02 06:34] VITALS: BP 90/56
[2017-05-02 07:10] VITALS: BP 86/49
[2017-05-02] MEDS: CEFDINIR 300 MG CAP (OMNICEF) PO SCH ×2 (09:00→11:25)
[2017-05-02] MEDS: NICOTINE 21MG/24HR 1 EA TRANSDERMAL TD SCH ×2 (09:00→11:27)
[2017-05-02] MEDS: ARIPiprazole 10 MG TAB PO SCH ×2 (09:00→11:25)
[2017-05-02] MEDS: VENLAFAXINE 37.5 MG TAB PO SCH ×3 (09:00→21:24)
[2017-05-02] MEDS: METOPROLOL TART 25 MG TABLET PO SCH ×3 (09:00→21:23)
--- NOTE | 2017-05-02 09:41 | IPNPDOC ---
Subjective Date Seen The patient was seen on 05/02/17. Subjective Chief Complaint/HPI The patient is a 52-year-old male admitted with a reason for visit of Paranoid Schizophrena. Events since last encounter Requested to evaluate patient in regards to his blood pressure. Blood pressures are documented to be running in the 80s to 90s this morning. It was apparently rechecked and the trend was noted to be "improved" although this is not documented. The patient states he has been feeling well. He denies any chest discomfort, shortness of breath, abdominal discomfort, nausea, vomiting, diarrhea, lightheadedness, dizziness. He states he has not been eating or drinking as well as he had been, although there is no particular reason. He states he just has not been feeling as well. Constitutional: Denies: Chills, Fever, Night Sweats ENT: Denies: Head Aches, Ear Pain, Dysphagia Pulmonary: Denies: Dyspnea, Cough Cardiovascular: Denies: Chest Pain, Palpitations, Orthopnea, Paroxysmal Noc. Dyspnea, Lt Headedness Gastrointestinal: Denies: Nausea, Vomiting, Abdominal Pain, Diarrhea, Constipation Genitourinary: Denies: Dysuria, Frequency, Incontinence, Retention Objective Physical Examination General Exam: Positive: Alert Eye Exam: Positive: PERRLA ENT Exam: Positive: Atraumatic Chest Exam: Positive: Clear to auscultation, Normal air movement Heart Exam: Positive: Rate Normal, Regular Rhythm, Normal S1, Normal S2, Negative: Murmurs, Rubs Abdomen Exam: Positive: Normal bowel sounds, Soft, Negative: Tenderness, Hepatospenomegaly Skin Exam: Positive: Nl turgor and temperature Assessment /Plan Problems (1) Sinus tachycardia Problem Text: * Heart rate trend is noted to be 70-116. * Patient remains on metoprolol 25 mg twice a day. * He received 2 doses yesterday. * Add hold parameters, hold for heart rate less than 60, systolic BP less than 110. * Effexor may contribute to tachycardia. * EKG 05/01/17 SINUS TACHYCARDIA MARKED LEFT AXIS DEVIATION NONSPECIFIC T-WAVE ABNORMALITY No significant change compared with 04/17/2017 * Monitor. (2) Hypotension Problem Text: * Blood pressure trends noted. * Manual blood pressure taken during examination sitting was noted to be 138/88. * Request manual blood pressures only. * Request orthostatic vital signs 1 now and every shift. * Metoprolol with hold parameters. * Caution with medications which may contribute to orthostatic hypotension such as Abilify and Haldol. * Encourage by mouth intake, by mouth fluids. * Monitor daily weight, intake/output. * Check CBC with differential/CMP/LA * Monitor. (3) History of pneumonia Problem Text: * Patient has completed course of oral Cefdinir. * Update labs CBC/CMP Plan/VTE VTE Prophylaxis Ordered?: No (ambulatory) VS, I&O, 24H, Fishbone Vital Signs/I&O Vital Signs Date Time Temp Pulse Resp B/P (MAP) Pulse Ox O2 Delivery O2 Flow Rate FiO2 05/02/17 07:10 97.6 88 16 86/49 (61) 05/02/17 06:10 91 Room Air Gerda Acosta May 02, 2017 09:41
--- NOTE | 2017-05-02 18:30 | MHIPNPDOC ---
[facility] Progress Note Progress Note DATE OF SERVICE: 05/02/17 INTERVAL HISTORY: Medication Side effects: Denies medication side effects, has been compliant with some of the medications. This life underwriter is changing his meds and hopefully he will continue to accept his medications for us to start him on Invega Sustenna in 2 weeks Behavior: Isolated to his room, has attended groups with bizarre behavior Group Attendance: Has attended groups but has not participated in them and yesterday when he attended he showed completely bizarre behaviors. He was highly delusional and psychotic Psychiatric Symptom change: According to staff that worked the manufacturing supervisor 2nd shift last night, he became relieved when he got to know that he was not going to be discharged home. We suspect that he probably sabotaged discharge because he feels extremely terrified about living in his apartment due to his paranoia. He doesn't do well living alone but according to staff he also does not do well living with other people because he is always paranoid about what other people might do to him. VITAL SIGNS: See below. NEW TEST RESULTS: See below CURRENT MEDICATIONS: See below. MENTAL STATUS EXAMINATION: General: Alert, oriented to place and person, uncooperative, suspicious and guarded, with poor eye contact Speech: Poverty of speech. Tangential. Thought processes: Disorganized and incoherent, but better than yesterday Thought content: Perseveres about his brother being murdered, about him dying, about people being after him. Abstract reasoning, and computation: Unable to assess Description of associations: Loose Description of abnormal or psychotic thoughts: Paranoid and persecutory delusions, has been responding to internal stimuli, possibly. In seeing auditory and visual hallucinations. Denies suicidal thoughts and denies homicidal thoughts. Judgment: Poor Insight: Poor Orientation: Oriented to place and person Recent and remote memory: Limited Attention span and concentration: Poor Fund of knowledge: Unable to assess Mood: Depressed, irritable Affect: Constricted, congruent to mood DIAGNOSES: 1. Paranoid schizophrenia. 2. Major depressive disorder. 3. . ASSESSMENT: Patient stopped taking medications and with that he decompensated. Today he was not as delusional as he was yesterday but he continues to be delusional and very paranoid. Patient cannot be discharged home being unstable as he is right now. We will stabilize and hopefully he will be taken by ACT once again. MANAGEMENT PLAN: Medications: Paliperidone 6 mg by mouth daily at bedtime, Abilify 10 mg by mouth every morning (will stop Abilify tomorrow). Rozerem 8 mg by mouth daily at bedtime, Ativan 1 mg by mouth every 8 hours when necessary for anxiety and agitation, venlafaxine 150 mg by mouth twice a day. Psychotherapy: Will encourage him to attend groups Social: He has been isolated to his room not interacting with peers or staff. Misc: -- Disposition: Patient needs longer treatment, once he is stabilized will be discharged home so that he can follow up with ACT team. TIME SPENT: 20 minutes. Vital Signs Vital Signs Date Time Temp Pulse Resp B/P (MAP) Pulse Ox O2 Delivery O2 Flow Rate FiO2 05/02/17 11:25 88 130/86 05/02/17 07:10 97.6 16 05/02/17 06:10 91 Room Air Current Medications Current Medications Acetaminophen (Tylenol Tab) 650 mg Q6HP PRN PO HEADACHE or DISCOMFORT Last administered on 04/11/17 06:17; Start 02/03/17 at 15:45; Stop 04/11/17 at 20:35 ; Status DC Acetaminophen (Tylenol Tab) 650 mg Q6HP PRN PO HEADACHE or DISCOMFORT; Start at 19:15; Stop 04/04/17 at 19:14; Status Cancel Acetaminophen (Tylenol Tab) 650 mg Q6HP PRN PO HEADACHE or DISCOMFORT; Start at 15:45; Stop 05/14/17 at 15:44 Al Hydrox/Mg Hydrox/Simethicone (Mylanta) 30 ml Q4HP PRN PO HEARTBURN/ INDIGESTION; Start 02/03/17 at 15:45; Stop 03/05/17 at 15:44; Status DC Al Hydrox/Mg Hydrox/Simethicone (Mylanta) 30 ml Q4HP PRN PO HEARTBURN/ INDIGESTION Last administered on 04/01/17 22:41; Start 03/05/17 at 19:30; Stop 04/11/17 at 20:35; Status DC Al Hydrox/Mg Hydrox/Simethicone (Mylanta) 30 ml Q4HP PRN PO HEARTBURN/ INDIGESTION; Start 03/06/17 at 10:00; Stop 04/04/17 at 09:59; Status Cancel Al Hydrox/Mg Hydrox/Simethicone (Mylanta) 30 ml Q4HP PRN PO HEARTBURN/ INDIGESTION Last administered on 04/14/17 23:36; Start 04/14/17 at 15:45; Stop 05/14/17 at 15:44 Aripiprazole (AbiLIFY) 2.5 mg QHS PO Last administered on 02/16/17 20:07; Start 02/07/17 at 21:00; Stop 02/17/17 at 12:25; Status DC Aripiprazole (AbiLIFY) 5 mg QHS PO Last administered on 02/23/17 21:06; Start 02/17/17 at 21:00; Stop 02/24/17 at 17:48; Status DC Aripiprazole (AbiLIFY) 7.5 mg BID PO Last administered on 02/25/17 08:02; Start 02/24/17 at 21:00; Stop 02/25/17 at 11:54; Status DC Aripiprazole (AbiLIFY) 10 mg BID PO Last administered on 03/21/17 08:19; Start 03/18/17 at 21:00; Stop 03/21/17 at 16:03; Status DC Aripiprazole (AbiLIFY) 10 mg BID PO Last administered on 03/03/17 08:14; Start 02/25/17 at 21:00; Stop 03/03/17 at 10:13; Status DC Aripiprazole (AbiLIFY) 10 mg DAILY PO Last administered on 05/02/17 11:25; Start 05/02/17 at 09:00; Stop 06/01/17 at 08:59 Aripiprazole (AbiLIFY) 15 mg BID PO Last administered on 03/08/17 08:08; Start 03/03/17 at 21:00; Stop 03/08/17 at 08:14; Status DC Aripiprazole (AbiLIFY) 15 mg BID PO ; Start 03/08/17 at 09:00; Stop 04/02/17 at 20:59; Status Cancel Aripiprazole (AbiLIFY) 15 mg BID PO Last administered on 03/10/17 08:03; Start 03/08/17 at 21:00; Stop 03/10/17 at 15:14; Status DC Aripiprazole (AbiLIFY) 15 mg BID PO Last administered on 03/18/17 08:37; Start 03/14/17 at 21:00; Stop 03/18/17 at 12:15; Status DC Aripiprazole (AbiLIFY) 15 mg BID PO Last administered on 03/25/17 08:05; Start 03/21/17 at 21:00; Stop 03/25/17 at 16:17; Status DC Aripiprazole (AbiLIFY) 20 mg BID PO Last administered on 03/14/17 08:05; Start 03/10/17 at 21:00; Stop 03/14/17 at 14:42; Status DC Aripiprazole (AbiLIFY) 20 mg BID PO ; Start 04/12/17 at 21:00; Stop 04/12/17 at 21:59; Status DC Aripiprazole (AbiLIFY) 20 mg BID PO Last administered on 04/30/17 22:00; Start 04/14/17 at 21:00; Stop 05/01/17 at 10:39; Status DC Aripiprazole (AbiLIFY) 20 mg BID PO Last administered on 04/11/17 07:48; Start 03/25/17 at 21:00; Stop 04/11/17 at 20:35; Status DC Aripiprazole (AbiLIFY) 20 mg DAILY PO ; Start 05/01/17 at 09:00; Stop 05/02/17 at 08:31; Status DC Aspirin (Aspirin Chewable) 81 mg DAILY PO Last administered on 04/12/17 19:58 ; Start 04/12/17 at 09:00; Stop 04/12/17 at 21:59; Status DC Aspirin (Aspirin) 325 mg DAILY PO ; Start 04/14/17 at 09:00; Stop 04/14/17 at 16 :11; Status DC Aspirin (Aspirin) 325 mg DAILY PO ; Start 04/15/17 at 09:00; Stop 04/15/17 at 09 :00; Status DC Benztropine Mesylate (Cogentin) 0.5 mg BID PO Last administered on 02/23/17 08: 43; Start 02/04/17 at 09:00; Stop 02/23/17 at 13:41; Status DC Benztropine Mesylate (Cogentin) 1 mg BID PO Last administered on 03/14/17 08: 05; Start 02/23/17 at 09:00; Stop 03/14/17 at 16:09; Status DC Benztropine Mesylate (Cogentin) 1 mg TID PO Last administered on 03/24/17 20:11 ; Start 03/14/17 at 21:00; Stop 03/25/17 at 08:59; Status DC Buspirone HCl (Buspar) 7.5 mg TID PO Last administered on 02/26/17 08:04; Start 02/04/17 at 16:00; Stop 02/26/17 at 12:48; Status DC Cefdinir (Omnicef) 300 mg BID PO ; Start 04/12/17 at 21:00; Stop 04/12/17 at 21: 59; Status DC Cefdinir (Omnicef) 300 mg BID PO Last administered on 05/02/17 11:25; Start at 21:00; Stop 05/02/17 at 12:37; Status DC Clozapine (Clozaril) 25 mg QHS PO Last administered on 03/20/17 21:41; Start at 21:00; Stop 03/21/17 at 08:59; Status DC Clozapine (Clozaril) 50 mg QAM PO Last administered on 03/18/17 08:37; Start 03/14/17 at 09:00; Stop 03/18/17 at 21:20; Status DC Clozapine (Clozaril) 50 mg QHS PO Last administered on 03/25/17 22:42; Start at 21:00; Stop 03/27/17 at 13:55; Status DC Clozapine (Clozaril) 75 mg QHS PO Last administered on 04/09/17 20:17; Start 03/27/17 at 21:00; Stop 04/10/17 at 14:36; Status DC Clozapine (Clozaril) 100 mg QHS PO Last administered on 04/09/17 20:17; Start 04/03/17 at 21:00; Stop 04/10/17 at 14:34; Status DC Clozapine (Clozaril) 150 mg QHS PO ; Start 04/10/17 at 21:00; Stop 04/17/17 at 20:59; Status Cancel Clozapine (Clozaril) 150 mg QHS PO ; Start 04/11/17 at 21:00; Stop 04/11/17 at 21:00; Status Cancel Clozapine (Clozaril) 200 mg QHS PO Last administered on 04/10/17 20:03; Start 04/10/17 at 21:00; Stop 04/11/17 at 11:18; Status DC Diphenhydramine HCl (Benadryl) 50 mg STAT STAT IM ; Start 04/12/17 at 17:45; Stop 04/12/17 at 17:47; Status DC Diphenhydramine HCl (Benadryl) 50 mg STAT STAT PO Last administered on 13:04; Start 04/12/17 at 12:41; Stop 04/12/17 at 12:42; Status DC Diphenhydramine HCl (Benadryl) 50 mg STAT STAT PO Last administered on 17:51; Start 04/12/17 at 17:43; Stop 04/12/17 at 17:45; Status DC Docusate Sodium (Colace) 100 mg BID PO Last administered on 04/11/17 07:48; Start 02/03/17 at 21:00; Stop 04/11/17 at 20:35; Status DC Gabapentin (Neurontin) 100 mg QAM PO Last administered on 02/24/17 08:14; Start 02/04/17 at 09:00; Stop 02/24/17 at 17:59; Status DC Gabapentin (Neurontin) 200 mg QAM PO Last administered on 03/19/17 08:04; Start 02/25/17 at 09:00; Stop 03/19/17 at 11:00; Status DC Gabapentin (Neurontin) 300 mg QHS PO Last administered on 04/10/17 20:03; Start 03/21/17 at 21:00; Stop 04/11/17 at 20:35; Status DC Gabapentin (Neurontin) 300 mg QHS PO ; Start 04/12/17 at 21:00; Stop 04/12/17 at 21:59; Status DC Gabapentin (Neurontin) 300 mg QHS PO Last administered on 04/30/17 22:00; Start 04/14/17 at 21:00; Stop 05/01/17 at 10:36; Status DC Gabapentin (Neurontin) 300 mg TID PO ; Start 03/21/17 at 21:00; Stop 03/21/17 at 21:00; Status DC Gabapentin (Neurontin) 400 mg QHS PO Last administered on 03/18/17 20:56; Start 02/04/17 at 21:00; Stop 03/19/17 at 11:00; Status DC Gabapentin (Neurontin) 600 mg BID PO ; Start 04/14/17 at 21:00; Stop 04/14/17 at 21:00; Status DC Gabapentin (Neurontin) 600 mg BID@0900,1600 PO Last administered on 04/11/17 07:48; Start 03/21/17 at 16:00; Stop 04/11/17 at 20:35; Status DC Gabapentin (Neurontin) 600 mg BID@0900,1600 PO Last administered on 04/12/17 14:54; Start 04/12/17 at 16:00; Stop 04/12/17 at 21:59; Status DC Gabapentin (Neurontin) 600 mg BID@0900,1600 PO Last administered on 04/30/17 15:40; Start 04/14/17 at 16:00; Stop 05/01/17 at 10:36; Status DC Haloperidol (Haldol) 10 mg Q8HP PRN PO ANXIETY/AGITATION Last administered on 15:39; Start 04/14/17 at 15:45; Stop 05/14/17 at 15:44 Haloperidol (Haldol) 10 mg STAT STAT IM ; Start 04/12/17 at 17:45; Stop at 17:47; Status DC Haloperidol (Haldol) 10 mg STAT STAT PO Last administered on 04/12/17 13:04; Start 04/12/17 at 12:40; Stop 04/12/17 at 12:42; Status DC Haloperidol (Haldol) 10 mg STAT STAT PO Last administered on 04/12/17 17:51; Start 04/12/17 at 17:43; Stop 04/12/17 at 17:45; Status DC Haloperidol Decanoate (Haldol Decanoate) 50 mg Q14D IM Last administered on 09:07; Start 04/15/17 at 09:00; Stop 05/01/17 at 09:32; Status DC Haloperidol Decanoate (Haldol Decanoate) 50 mg Q14D STAT IM ; Start 02/18/17 at 20:24; Stop 02/18/17 at 20:25; Status Cancel Haloperidol Decanoate (Haldol Decanoate) 50 mg Q14D@0900 IM Last administered on 04/01/17 10:33; Start 03/18/17 at 09:00; Stop 04/11/17 at 20:35; Status DC Haloperidol Decanoate (Haldol Decanoate) 50 mg Q14D@14 IM Last administered on 03/04/17 13:27; Start 02/04/17 at 14:00; Stop 03/06/17 at 13:59; Status DC Haloperidol Decanoate (Haldol Decanoate) 75 mg Q14D IM ; Start 05/13/17 at 09:00 ; Stop 06/12/17 at 08:59 Home Med (Med Rec Complete!) ASDIRECTED XX ; Start 02/03/17 at 12:15; Stop at 12:15; Status DC Lorazepam (Ativan) 1 mg Q6HP PRN PO ANXIETY; Start 04/12/17 at 14:30; Stop at 21:59; Status DC Lorazepam (Ativan) 1 mg Q8H PRN PO anxiety/agitation; Start 05/02/17 at 14:00; Stop 05/09/17 at 13:59 Lorazepam (Ativan) 1 mg Q8HP PRN PO ANXIETY/AGITATION Last administered on 20:52; Start 02/03/17 at 15:45; Stop 02/26/17 at 12:48; Status DC Lorazepam (Ativan) 1 mg STAT STAT PO Last administered on 04/12/17 13:04; Start 04/12/17 at 12:42; Stop 04/12/17 at 12:44; Status DC Lorazepam (Ativan) 1 mg TID PO Last administered on 03/19/17 08:04; Start 08/05 at 16:00; Stop 03/19/17 at 11:02; Status DC Lorazepam (Ativan) 1 mg TID PO Last administered on 03/26/17 08:06; Start at 21:00; Stop 03/26/17 at 11:14; Status DC Lorazepam (Ativan) 1 mg TID PRN PO Anxiety Last administered on 03/19/17 16:11 ; Start 03/19/17 at 11:15; Stop 03/21/17 at 16:07; Status DC Lorazepam (Ativan) 2 mg Q8H PO Last administered on 05/01/17 20:51; Start at 22:00; Stop 05/02/17 at 08:29; Status DC Lorazepam (Ativan) 2 mg STAT STAT IM ; Start 04/12/17 at 17:45; Stop 04/12/17 at 17:47; Status DC Lorazepam (Ativan) 2 mg STAT STAT PO Last administered on 04/12/17 17:51; Start 04/12/17 at 17:43; Stop 04/12/17 at 17:45; Status DC Lorazepam (Ativan) 4 mg Q8HP PRN PO ANXIETY AGITATION Last administered on 05/01 15:39; Start 04/14/17 at 16:00; Stop 05/01/17 at 16:00; Status DC Magnesium Hydroxide (Milk Of Magnesia) 30 ml DAILYPRN PRN PO CONSTIPATION; Start 02/03/17 at 15:45; Stop 03/05/17 at 15:44; Status DC Magnesium Hydroxide (Milk Of Magnesia) 30 ml DAILYPRN PRN PO CONSTIPATION Last administered on 03/24/17 15:50; Start 03/05/17 at 19:15; Stop 04/11/17 at 20:35 ; Status DC Magnesium Hydroxide (Milk Of Magnesia) 30 ml DAILYPRN PRN PO CONSTIPATION; Start 04/14/17 at 15:45; Stop 05/14/17 at 15:44 Metoprolol Tartrate (Lopressor) 25 mg BID PO Last administered on 04/12/17 19: 43; Start 04/12/17 at 21:00; Stop 04/12/17 at 21:59; Status DC Metoprolol Tartrate (Lopressor) 25 mg BID PO Last administered on 05/02/17 11: 25; Start 04/14/17 at 21:00; Stop 05/14/17 at 20:59 Mirtazapine (Remeron) 15 mg QHS PO Last administered on 02/27/17 21:37; Start 02/04/17 at 21:00; Stop 02/28/17 at 09:19; Status DC Mirtazapine (Remeron) 30 mg QHS PO Last administered on 03/18/17 20:56; Start 02/28/17 at 21:00; Stop 03/19/17 at 11:02; Status DC Mirtazapine (Remeron) 30 mg QHS PO Last administered on 04/28/17 22:50; Start 04/21/17 at 21:00; Stop 05/01/17 at 11:06; Status DC Mirtazapine (Remeron) 30 mg QHS PRN PO Insomnia; Start 03/19/17 at 11:15; Stop 03/21/17 at 16:05; Status DC Mirtazapine (Remeron) 45 mg QHS PO ; Start 04/12/17 at 21:00; Stop 04/12/17 at 21:59; Status DC Mirtazapine (Remeron) 45 mg QHS PO Last administered on 04/20/17 20:46; Start 04/14/17 at 21:00; Stop 04/21/17 at 14:45; Status DC Mirtazapine (Remeron) 45 mg QHSP PRN PO Insomnia Last administered on 20:35; Start 03/21/17 at 16:15; Stop 04/11/17 at 20:35; Status DC Miscellaneous (Unresolved Clarification Entry) SEE LABEL COMMENTS UNRESOLVED XX ; Start 03/07/17 at 00:01; Stop 03/10/17 at 15:08; Status DC Nicotine (Nicoderm Cq 14mg) 1 patch DAILY TD Last administered on 05/01/17 07: 30; Start 04/15/17 at 09:00; Stop 05/01/17 at 16:48; Status DC Nicotine (Nicoderm Cq 21mg) 1 patch DAILY TD Last administered on 04/11/17 07: 49; Start 02/04/17 at 09:00; Stop 04/11/17 at 20:35; Status DC Nicotine (Nicoderm Cq 21mg) 1 patch DAILY TD Last administered on 04/12/17 14: 54; Start 04/12/17 at 09:00; Stop 04/12/17 at 21:59; Status DC Nicotine (Nicoderm Cq 21mg) 1 patch DAILY TD Last administered on 05/02/17 11: 27; Start 05/01/17 at 09:00; Stop 05/31/17 at 08:59 Olanzapine (ZyPREXA) 10 mg DAILY PO Last administered on 02/04/17 08:59; Start 02/03/17 at 09:00; Stop 02/04/17 at 14:20; Status DC Paliperidone (Invega) 6 mg QHS PO Last administered on 05/01/17 20:52; Start 05/01/17 at 21:00; Stop 05/31/17 at 20:59 Quetiapine Fumarate (SEROquel) 200 mg QHS PO ; Start 02/04/17 at 21:00; Stop at 13:42; Status DC Ramelteon (Rozerem) 8 mg QHS PO Last administered on 05/01/17 20:52; Start at 21:00; Stop 05/31/17 at 20:59 Trazodone HCl (Desyrel) 50 mg QHSP PRN PO INSOMNIA; Start 02/03/17 at 16:45; Stop 03/05/17 at 16:44; Status Cancel Trazodone HCl (Desyrel) 50 mg QHSP PRN PO INSOMNIA Last administered on 21:49; Start 02/28/17 at 12:45; Stop 03/10/17 at 15:11; Status DC Venlafaxine HCl (Effexor Xr) 75 mg DAILY PO Last administered on 02/06/17 08:28; Start 02/04/17 at 09:00; Stop 02/06/17 at 18:02; Status DC Venlafaxine HCl (Effexor Xr) 150 mg BID PO Last administered on 04/11/17 07:48; Start 03/07/17 at 09:00; Stop 04/11/17 at 20:35; Status DC Venlafaxine HCl (Effexor Xr) 150 mg BID PO ; Start 04/12/17 at 21:00; Stop 04/12/17 at 21:59; Status DC Venlafaxine HCl (Effexor Xr) 150 mg QHS PO Last administered on 02/23/17 21 :05; Start 02/07/17 at 21:00; Stop 02/24/17 at 17:59; Status DC Venlafaxine HCl (Effexor) 150 mg BID PO Last administered on 03/06/17 20:04; Start 02/24/17 at 21:00; Stop 03/06/17 at 23:26; Status DC Venlafaxine HCl (Effexor) 150 mg BID PO Last administered on 05/02/17 11:25; Start 04/14/17 at 21:00; Stop 05/14/17 at 20:59 Allergies Coded Allergies: Loxapine (Verified Allergy, Mild, 01/21/13) Thiothixene (Verified Allergy, Mild, 01/21/13) Fluphenazine (Verified Allergy, Unknown, 09/12/15) UNKNOWN [place] (Verified Allergy, Unknown, UNKNOWN, 09/12/15) Meperidine (Verified Allergy, Unknown, UNKNOWN, 09/12/15) Phenothiazines (Verified Allergy, Unknown, UNKNOWN, 09/12/15) Thioridazine (Verified Allergy, Unknown, UNKNOWN, 09/12/15) KELVIN GARIBAY MD May 02, 2017 18:30
[2017-05-02] MEDS: PALIPERIDONE 6 MG ER TAB (INVEGA) PO SCH (21:00)
[2017-05-02] MEDS: RAMELTEON 8 MG TAB (ROZEREM) PO SCH (21:23)
[2017-05-03] MEDS: VENLAFAXINE 37.5 MG TAB PO SCH ×2 (08:04→22:38)
[2017-05-03] MEDS: METOPROLOL TART 25 MG TABLET PO SCH ×2 (08:04→22:38)
[2017-05-03] MEDS: NICOTINE 21MG/24HR 1 EA TRANSDERMAL TD SCH (08:04)
[2017-05-03] MEDS: ARIPiprazole 10 MG TAB PO SCH (08:04)
[2017-05-03] MEDS: CEFDINIR 300 MG CAP (OMNICEF) PO SCH ×3 (09:00→22:50)
[2017-05-03 18:00] VITALS: BP 105/66
[2017-05-03] MEDS: PALIPERIDONE 6 MG ER TAB (INVEGA) PO SCH (21:00)
[2017-05-03] MEDS: RAMELTEON 8 MG TAB (ROZEREM) PO SCH (21:00)
[2017-05-04 06:30] VITALS: BP 138/81
[2017-05-04] MEDS: NICOTINE 21MG/24HR 1 EA TRANSDERMAL TD SCH (08:23)
[2017-05-04] MEDS: CEFDINIR 300 MG CAP (OMNICEF) PO SCH ×2 (08:23→21:17)
[2017-05-04] MEDS: VENLAFAXINE 37.5 MG TAB PO SCH ×2 (08:23→21:18)
[2017-05-04] MEDS: ARIPiprazole 10 MG TAB PO SCH (08:23)
[2017-05-04] MEDS: METOPROLOL TART 25 MG TABLET PO SCH ×2 (08:24→21:17)
[2017-05-04 11:07] VITALS: BP_SYST 100; BP_SYST 102; BP_SYST 104; BP_DIAS 72; BP_DIAS 78
[2017-05-04] MEDS: PALIPERIDONE 6 MG ER TAB (INVEGA) PO SCH ×2 (21:00→21:18)
[2017-05-04] MEDS: RAMELTEON 8 MG TAB (ROZEREM) PO SCH (21:00)
[2017-05-04] MEDS: ARIPiprazole 15 MG TAB (AbiLIFY) PO SCH (21:18)
[2017-05-05 06:00] VITALS: BP 98/64
[2017-05-05] MEDS: ARIPiprazole 10 MG TAB PO SCH (08:05)
[2017-05-05] MEDS: NICOTINE 21MG/24HR 1 EA TRANSDERMAL TD SCH (08:05)
[2017-05-05] MEDS: VENLAFAXINE 37.5 MG TAB PO SCH ×2 (08:06→22:57)
[2017-05-05] MEDS: CEFDINIR 300 MG CAP (OMNICEF) PO SCH (08:06)
[2017-05-05] MEDS: METOPROLOL TART 25 MG TABLET PO SCH ×2 (08:07→22:59)
--- NOTE | 2017-05-05 08:36 | IPN ---
DATE OF DICTATION: 05/01/2017 52-year-old male with history of paranoid schizophrenia who has been reported by nursing staff, rn case mgr, and nurse aides to be decompensating. HISTORY: Reportedly, he asked one of the providers last night if he knew what dismemberment was. Then, he apologized to this provider. This morning, he was responding to internal stimuli, refused to talk to most of the staff, including this entry writer, and asked me to get out of his room. According to rn case mgr, he was seen pacing through the hallway, looking very angry, talking to himself, and he went into his room and growled really, really loud. One of the nurses reported that last night, he told her that he has been out, on the street with his brother and his brother had been murdered. When the nurse told him that she did not know anything but she wanted to get more information out of him, he said, "How come don't you know?" According to staff, patient is delusional and we have serious doubts about him taking his medication because he could have been throwing them away without noticing (without staff noticing). SUBJECTIVE: Patient says, "I don't want to see you; please get out of my room." Patient reportedly has told many staff members he does not want to talk. OBJECTIVE: Patient is agitated, abrasive, extremely paranoid and suspicious. He responds to internal stimuli, and he is very delusional. His thought process is disorganized, and his thought content is incoherent. He is most likely having auditory and visual hallucinations. His mood and affect are angry, irritable. His judgment and impulse control as well as insight are very poor at this time. It is not possible to assess fund of knowledge, memory, attention, and concentration because the patient does not allow this entry writer to talk to him. ASSESSMENT: The patient has regressed and deteriorated. Most likely, he suffered this deterioration because he got tired of waiting to be transferred to long-term treatment, and he is very anguished because he did not know they were going to accept him or not. At this time, he can be transferred to another hospital but he cannot be sent home, and those were the plans, to send him home. PLAN: Medications have been readjusted; he is not willing to take medicine, so gabapentin has been discontinued, Abilify was decreased from 20 mg by mouth twice a day to 20 mg by mouth daily, and Remeron was discontinued. Instead of Abilify 20 mg by mouth twice a day, now he has Abilify 20 mg in the morning and paliperidone 6 mg by mouth nightly; instead of Remeron, now he has Rozerem 8 mg by mouth nightly. This afternoon, he accepted from one of our nurses Haldol by mouth and Ativan by mouth. This evening, he has accepted the Rozerem and the paliperidone. Hopefully, more Abilify can be decreased tomorrow and paliperidone can be increased, hoping that, doing this change, he will improve and accept his medications; and maybe, if the medication is well tolerated, he could be started on Invega Sustenna instead of Haldol. Will monitor closely and will followup. Patient at this time is very unstable and dangerous for himself and for others.
[2017-05-05 18:00] VITALS: BP 115/70
[2017-05-05] MEDS: RAMELTEON 8 MG TAB (ROZEREM) PO SCH (22:56)
[2017-05-05] MEDS: ARIPiprazole 15 MG TAB (AbiLIFY) PO SCH (22:57)
--- NOTE | 2017-05-06 06:38 | IPN ---
DATE: 05/05/2017 ADDENDUM: This is an addendum to previous job number [id number]. I was cut off previously, and I did not finish on the management plan: Psychotherapy. He will continue to attend groups, and staff and this contract writer will encourage him to keep attending groups and participate in them. DISPOSITION: The patient is pending transfer to [place], he has been for such a long time at the inpatient mental health unit, and he had reached a point where he was very stable, but then when he was not accepted at [facility] and the [facility]ive community treatment ([facility]) team closed his case, he became depressed and paranoid again and started refusing medications which has lead to instability once again. He needs to be in the inpatient mental health unit until a place accepts him to be transferred. TIME SPENT: 20 minutes. TERRANCE
[2017-05-06] MEDS: METOPROLOL TART 25 MG TABLET PO SCH ×2 (08:15→22:25)
[2017-05-06] MEDS: VENLAFAXINE 37.5 MG TAB PO SCH ×2 (08:15→22:18)
[2017-05-06] MEDS: NICOTINE 21MG/24HR 1 EA TRANSDERMAL TD SCH (08:15)
[2017-05-06] MEDS: ARIPiprazole 10 MG TAB PO SCH (08:15)
[2017-05-06] MEDS ORDERED: PALIPERIDONE PALMITATE 234 MG/1.5 ML INJ (INVEGA SUSTENNA)(J2426) IM SCH (09:00)
[2017-05-06 12:26] VITALS: BP 105/68
[2017-05-06 18:00] VITALS: BP 136/86
--- NOTE | 2017-05-06 20:24 | IPN ---
DATE: 05/06/2017 A 52-year-old male with history of: 1. Paranoid schizophrenia. 2. Major depressive disorder. SUBJECTIVE: Patient reports he is feeling well. He refuses to talk more about his thoughts or his feelings with this quality analyst/technical writer. OBJECTIVE: Patient is alert, cooperative, guarded, suspicious, dressed in personal clothes with poor eye contact. Speech: There is poverty of speech. His thought process is irrational and disorganized. His thought content could not be assessed because the patient did not want to speak to this quality analyst/technical writer. Regarding psychotic thoughts or abnormal thoughts, patient did not verbalize feeling or not feeling suicidal. He did not elaborate of auditory or visual hallucinations, but he is responding to internal stimuli and he is extremely paranoid. Abstract thinking and computation: This quality analyst/technical writer was unable to assess. Attention and concentration: Poor. Memory, recent and remote: Unable to assess today, but it always has been poor due to cognitive impairment due to paranoid schizophrenia. His mood and affect are irritable and angry. ASSESSMENT: The patient has deteriorated. He is accepting, occasionally, his medications. He has not been aggressive to anyone at the inpatient mental health unit. Later on during this day, one of our nurses, who has a very good rapport with the patient, was able to convince him to accept Invega Sustenna injection. Patient has been talked to about this possibility before, but he always hesitated and ended up saying no. Thanks to our nurse today, he received his first dose of Invega Sustenna, and for that reason, the order for Haldol decanoate 50 mg every 14 days has been discontinued. Patient will continue receiving 17.5 mg of Abilify by mouth and this dose will be tapered accordingly once he feels better. In a week, he will have to receive the other dose of 157 mg of Invega Sustenna. Will monitor closely.
[2017-05-06] MEDS: RAMELTEON 8 MG TAB (ROZEREM) PO SCH (22:19)
--- NOTE | 2017-05-06 22:23 | IPN ---
DATE: 05/05/2017 INTERVAL HISTORY: Medication side effects: Patient is denying medication side effects, but according to staff he has been very reluctant to take his medications. Apparently, last night he refused them but then he came to the medication room and he got them. Behavior: Continues to be very isolated to his room, angry, irritable, although he has not been explosive or aggressive to anyone. He has been responding to internal stimuli. Group attendance: Continues to attend groups, but mostly he does not participate in all of them. Psychiatric symptom change: Patient has been irritable, delusional, possibly having auditory and visual hallucinations. Has expressed very bizarre ideas. Vital signs: Vital signs have been stable. New test results: There are no new test results because he does not allow his labs to be drawn. He has not allowed a new EKG. CURRENT MEDICATIONS: Patient is currently on: - venlafaxine 150 mg by mouth twice a day - Rozerem 8 mg by mouth nightly - nicotine patch 21 mg per 24 hours one patch daily - metoprolol 25 mg by mouth twice a day - lorazepam 1 mg by mouth every 8 hours as needed for anxiety or agitation - Haldol decanoate 75 mg intramuscular (IM) every 14 days - haloperidol 10 mg by mouth every 8 hours as needed for anxiety or agitation - aripiprazole (or Abilify) 7.5 mg by mouth nightly - aripiprazole 10 mg by mouth daily The patient refused his haloperidol last night and the night before and for that reason he was started again on Abilify. MENTAL STATUS EXAMINATION: General: Alert, oriented to self and place, but not to date and time, uncooperative, very suspicious and guarded with angry look in his eyes. Speech: Has poverty of speech, thought blocking, and tangentiality. Thought process: Disorganized and incoherent. Thought content: Perseveres about anxiety, anxiety related to being spied on or persecuted. Abstract reasoning and computation: Unable to assess at this time, patient is very irritable. Description of associations: Loose. Description of abnormal or psychotic thoughts: Patient has paranoid and bizarre delusions. He denies having auditory and visual hallucinations, but he is responding to internal stimuli so most likely he is having those hallucinations. He denies suicidal or homicidal thoughts. His judgment and insight are poor. Orientation: He is oriented to place and person. Recent and remote memory are limited due to a cognitive impairment caused by paranoid schizophrenia, chronic. Attention span and concentration are very poor. Fund of knowledge: Unable to assess at this time. Mood: Irritable, angry. Affect: Angry, irritable. DIAGNOSES: 1. Paranoid schizophrenia. 2. Major depressive disorder. ASSESSMENT: Patient is still very unstable because he stopped taking medications last week, he has been seen as if he will have something in his mouth but he has refused to show the nurses what he has inside of his mouth. We believe that it could be the medications, that he is playing with them, but not swallowing them. Last week, on Friday, he clogged the toilet once again as he did when he had been admitted recently. However, he is denying having auditory or visual hallucinations but all the staff have witnessed him responding to internal stimuli. MANAGEMENT PLAN: Will continue with these medications and will evaluate the possibility of giving him a shot of Invega Sustenna or Abilify Maintena on 05/13/2017, that is when he is due for his next Haldol dose.
[2017-05-06] MEDS: ARIPiprazole 15 MG TAB (AbiLIFY) PO SCH (22:24)
[2017-05-06] MEDS: HALOPERIDOL 5 MG TAB PO PRN (22:25)
[2017-05-06] MEDS: LORazepam 2 MG TAB PO PRN (22:27)
[2017-05-07] MEDS: NICOTINE 21MG/24HR 1 EA TRANSDERMAL TD SCH (08:21)
[2017-05-07] MEDS: ARIPiprazole 10 MG TAB PO SCH (08:21)
[2017-05-07] MEDS: VENLAFAXINE 37.5 MG TAB PO SCH ×2 (08:22→20:41)
[2017-05-07] MEDS: METOPROLOL TART 25 MG TABLET PO SCH ×2 (08:22→20:41)
[2017-05-07 12:16] VITALS: BP 125/70
--- NOTE | 2017-05-07 16:43 | MHIPNPDOC ---
[facility] Progress Note Progress Note DATE OF SERVICE: 05/07/17 INTERVAL HISTORY: Medication Side effects: Denies medication side effects, patient received 234 mg of intake as then I yesterday and he continues to take Abilify. Behavior: Continues to be isolated to his room, with very little interaction with staff, looking angry at times. Group Attendance: Has attended some groups with little participation. Psychiatric Symptom change: Continues to respond to internal stimuli, he lost his bathroom yesterday, is refusing to talk to several staff members, including this video game script writer. VITAL SIGNS: See below. NEW TEST RESULTS: See below CURRENT MEDICATIONS: See below. MENTAL STATUS EXAMINATION: General: Alert, uncooperative, very suspicious and guarded with poor eye contact. He covered his face when this video game script writer approached him in his room. Speech: Sparse, extremely limited. Thought processes: Unable to assess, patient refuses to talk. Thought content: Unable to assess, the only thing that he asked was why did he needed Invega Sustenna. Abstract reasoning, and computation: Unable to assess, but it always has being limited due to his cognitive impairment secondary to mental illness. Description of associations: Unable to assess today but until yesterday was a little bit loose Description of abnormal or psychotic thoughts: Paranoid and persecutory delusions, he is guarded and suspicious, possibly responding to internal stimuli. Unable to assess if he feels homicidal or suicidal because refused to speak to this video game script writer Judgment: Very poor Insight: Very poor Orientation: Unable to assess today. Until yesterday he was oriented to place and person. Recent and remote memory: Unable to assess Attention span and concentration: Unable to assess but seems to be easily distractible. Fund of knowledge: Unable to assess Mood: Irritable/angry Affect: Congruent to mood DIAGNOSES: 1. Paranoid schizophrenia. 2. Major depressive disorder. 3. . ASSESSMENT: Patient is very guarded and suspicious,, he received his IM medication yesterday, for the first time he received Invega Sustenna. Hopefully this will help reduce his paranoid thoughts. He will continue to take Abilify until we noticed some improvement in his symptoms. MANAGEMENT PLAN: Medications: Abilify 7.5 mg by mouth daily at bedtime and 10 mg by mouth every morning, Invega Sustenna 234 mg IM use 30 days. He will need 157 mg IM in one week, and will receive a monthly injection of 234 mg after that, venlafaxine 150 mg by mouth twice a day and Ativan when necessary. Psychotherapy: Will encourage him to continue group attendance Social: Patient received several phone calls, but he doesn't receive visits. [facility] -- Disposition: Patient will be transferred to [facility] as soon as they have a response for us. He cannot be discharged home at this time because he is very unstable and decompensated because he was not accepted, neither at [facility] and his acceptance at [facility] has been pending for a long time. This contributed to his decompensation TIME SPENT: 20 minutes. Vital Signs Vital Signs Date Time Temp Pulse Resp B/P (MAP) Pulse Ox O2 Delivery O2 Flow Rate FiO2 05/07/17 12:16 95 125/70 (88) 05/06/17 18:00 97.2 16 05/02/17 06:10 91 Room Air Current Medications Current Medications Acetaminophen (Tylenol Tab) 650 mg Q6HP PRN PO HEADACHE or DISCOMFORT Last administered on 04/11/17 06:17; Start 02/03/17 at 15:45; Stop 04/11/17 at 20:35 ; Status DC Acetaminophen (Tylenol Tab) 650 mg Q6HP PRN PO HEADACHE or DISCOMFORT; Start at 19:15; Stop 04/04/17 at 19:14; Status Cancel Acetaminophen (Tylenol Tab) 650 mg Q6HP PRN PO HEADACHE or DISCOMFORT; Start at 15:45; Stop 05/14/17 at 15:44 Al Hydrox/Mg Hydrox/Simethicone (Mylanta) 30 ml Q4HP PRN PO HEARTBURN/ INDIGESTION; Start 02/03/17 at 15:45; Stop 03/05/17 at 15:44; Status DC Al Hydrox/Mg Hydrox/Simethicone (Mylanta) 30 ml Q4HP PRN PO HEARTBURN/ INDIGESTION Last administered on 04/01/17 22:41; Start 03/05/17 at 19:30; Stop 04/11/17 at 20:35; Status DC Al Hydrox/Mg Hydrox/Simethicone (Mylanta) 30 ml Q4HP PRN PO HEARTBURN/ INDIGESTION; Start 03/06/17 at 10:00; Stop 04/04/17 at 09:59; Status Cancel Al Hydrox/Mg Hydrox/Simethicone (Mylanta) 30 ml Q4HP PRN PO HEARTBURN/ INDIGESTION Last administered on 04/14/17 23:36; Start 04/14/17 at 15:45; Stop 05/14/17 at 15:44 Aripiprazole (AbiLIFY) 2.5 mg QHS PO Last administered on 02/16/17 20:07; Start 02/07/17 at 21:00; Stop 02/17/17 at 12:25; Status DC Aripiprazole (AbiLIFY) 5 mg QHS PO Last administered on 02/23/17 21:06; Start 02/17/17 at 21:00; Stop 02/24/17 at 17:48; Status DC Aripiprazole (AbiLIFY) 7.5 mg BID PO Last administered on 02/25/17 08:02; Start 02/24/17 at 21:00; Stop 02/25/17 at 11:54; Status DC Aripiprazole (AbiLIFY) 7.5 mg QHS PO Last administered on 05/06/17 22:24; Start 05/04/17 at 21:00; Stop 06/03/17 at 20:59 Aripiprazole (AbiLIFY) 10 mg BID PO Last administered on 03/21/17 08:19; Start 03/18/17 at 21:00; Stop 03/21/17 at 16:03; Status DC Aripiprazole (AbiLIFY) 10 mg BID PO Last administered on 03/03/17 08:14; Start 02/25/17 at 21:00; Stop 03/03/17 at 10:13; Status DC Aripiprazole (AbiLIFY) 10 mg DAILY PO Last administered on 05/07/17 08:21; Start 05/02/17 at 09:00; Stop 06/01/17 at 08:59 Aripiprazole (AbiLIFY) 15 mg BID PO Last administered on 03/08/17 08:08; Start 03/03/17 at 21:00; Stop 03/08/17 at 08:14; Status DC Aripiprazole (AbiLIFY) 15 mg BID PO ; Start 03/08/17 at 09:00; Stop 04/02/17 at 20:59; Status Cancel Aripiprazole (AbiLIFY) 15 mg BID PO Last administered on 03/10/17 08:03; Start 03/08/17 at 21:00; Stop 03/10/17 at 15:14; Status DC Aripiprazole (AbiLIFY) 15 mg BID PO Last administered on 03/18/17 08:37; Start 03/14/17 at 21:00; Stop 03/18/17 at 12:15; Status DC Aripiprazole (AbiLIFY) 15 mg BID PO Last administered on 03/25/17 08:05; Start 03/21/17 at 21:00; Stop 03/25/17 at 16:17; Status DC Aripiprazole (AbiLIFY) 20 mg BID PO Last administered on 03/14/17 08:05; Start 03/10/17 at 21:00; Stop 03/14/17 at 14:42; Status DC Aripiprazole (AbiLIFY) 20 mg BID PO ; Start 04/12/17 at 21:00; Stop 04/12/17 at 21:59; Status DC Aripiprazole (AbiLIFY) 20 mg BID PO Last administered on 04/30/17 22:00; Start 04/14/17 at 21:00; Stop 05/01/17 at 10:39; Status DC Aripiprazole (AbiLIFY) 20 mg BID PO Last administered on 04/11/17 07:48; Start 03/25/17 at 21:00; Stop 04/11/17 at 20:35; Status DC Aripiprazole (AbiLIFY) 20 mg DAILY PO ; Start 05/01/17 at 09:00; Stop 05/02/17 at 08:31; Status DC Aspirin (Aspirin Chewable) 81 mg DAILY PO Last administered on 04/12/17 19:58 ; Start 04/12/17 at 09:00; Stop 04/12/17 at 21:59; Status DC Aspirin (Aspirin) 325 mg DAILY PO ; Start 04/14/17 at 09:00; Stop 04/14/17 at 16 :11; Status DC Aspirin (Aspirin) 325 mg DAILY PO ; Start 04/15/17 at 09:00; Stop 04/15/17 at 09 :00; Status DC Benztropine Mesylate (Cogentin) 0.5 mg BID PO Last administered on 02/23/17 08: 43; Start 02/04/17 at 09:00; Stop 02/23/17 at 13:41; Status DC Benztropine Mesylate (Cogentin) 1 mg BID PO Last administered on 03/14/17 08: 05; Start 02/23/17 at 09:00; Stop 03/14/17 at 16:09; Status DC Benztropine Mesylate (Cogentin) 1 mg TID PO Last administered on 03/24/17 20:11 ; Start 03/14/17 at 21:00; Stop 03/25/17 at 08:59; Status DC Buspirone HCl (Buspar) 7.5 mg TID PO Last administered on 02/26/17 08:04; Start 02/04/17 at 16:00; Stop 02/26/17 at 12:48; Status DC Cefdinir (Omnicef) 300 mg BID PO ; Start 04/12/17 at 21:00; Stop 04/12/17 at 21: 59; Status DC Cefdinir (Omnicef) 300 mg BID PO Last administered on 05/05/17 08:06; Start at 21:00; Stop 05/05/17 at 11:28; Status DC Clozapine (Clozaril) 25 mg QHS PO Last administered on 03/20/17 21:41; Start at 21:00; Stop 03/21/17 at 08:59; Status DC Clozapine (Clozaril) 50 mg QAM PO Last administered on 03/18/17 08:37; Start 03/14/17 at 09:00; Stop 03/18/17 at 21:20; Status DC Clozapine (Clozaril) 50 mg QHS PO Last administered on 03/25/17 22:42; Start at 21:00; Stop 03/27/17 at 13:55; Status DC Clozapine (Clozaril) 75 mg QHS PO Last administered on 04/09/17 20:17; Start 03/27/17 at 21:00; Stop 04/10/17 at 14:36; Status DC Clozapine (Clozaril) 100 mg QHS PO Last administered on 04/09/17 20:17; Start 04/03/17 at 21:00; Stop 04/10/17 at 14:34; Status DC Clozapine (Clozaril) 150 mg QHS PO ; Start 04/10/17 at 21:00; Stop 04/17/17 at 20:59; Status Cancel Clozapine (Clozaril) 150 mg QHS PO ; Start 04/11/17 at 21:00; Stop 04/11/17 at 21:00; Status Cancel Clozapine (Clozaril) 200 mg QHS PO Last administered on 04/10/17 20:03; Start 04/10/17 at 21:00; Stop 04/11/17 at 11:18; Status DC Diphenhydramine HCl (Benadryl) 50 mg STAT STAT IM ; Start 04/12/17 at 17:45; Stop 04/12/17 at 17:47; Status DC Diphenhydramine HCl (Benadryl) 50 mg STAT STAT PO Last administered on 13:04; Start 04/12/17 at 12:41; Stop 04/12/17 at 12:42; Status DC Diphenhydramine HCl (Benadryl) 50 mg STAT STAT PO Last administered on 17:51; Start 04/12/17 at 17:43; Stop 04/12/17 at 17:45; Status DC Docusate Sodium (Colace) 100 mg BID PO Last administered on 04/11/17 07:48; Start 02/03/17 at 21:00; Stop 04/11/17 at 20:35; Status DC Gabapentin (Neurontin) 100 mg QAM PO Last administered on 02/24/17 08:14; Start 02/04/17 at 09:00; Stop 02/24/17 at 17:59; Status DC Gabapentin (Neurontin) 200 mg QAM PO Last administered on 03/19/17 08:04; Start 02/25/17 at 09:00; Stop 03/19/17 at 11:00; Status DC Gabapentin (Neurontin) 300 mg QHS PO Last administered on 04/10/17 20:03; Start 03/21/17 at 21:00; Stop 04/11/17 at 20:35; Status DC Gabapentin (Neurontin) 300 mg QHS PO ; Start 04/12/17 at 21:00; Stop 04/12/17 at 21:59; Status DC Gabapentin (Neurontin) 300 mg QHS PO Last administered on 04/30/17 22:00; Start 04/14/17 at 21:00; Stop 05/01/17 at 10:36; Status DC Gabapentin (Neurontin) 300 mg TID PO ; Start 03/21/17 at 21:00; Stop 03/21/17 at 21:00; Status DC Gabapentin (Neurontin) 400 mg QHS PO Last administered on 03/18/17 20:56; Start 02/04/17 at 21:00; Stop 03/19/17 at 11:00; Status DC Gabapentin (Neurontin) 600 mg BID PO ; Start 04/14/17 at 21:00; Stop 04/14/17 at 21:00; Status DC Gabapentin (Neurontin) 600 mg BID@0900,1600 PO Last administered on 04/11/17 07:48; Start 03/21/17 at 16:00; Stop 04/11/17 at 20:35; Status DC Gabapentin (Neurontin) 600 mg BID@0900,1600 PO Last administered on 04/12/17 14:54; Start 04/12/17 at 16:00; Stop 04/12/17 at 21:59; Status DC Gabapentin (Neurontin) 600 mg BID@0900,1600 PO Last administered on 04/30/17 15:40; Start 04/14/17 at 16:00; Stop 05/01/17 at 10:36; Status DC Haloperidol (Haldol) 10 mg Q8HP PRN PO ANXIETY/AGITATION Last administered on 22:25; Start 04/14/17 at 15:45; Stop 05/14/17 at 15:44 Haloperidol (Haldol) 10 mg STAT STAT IM ; Start 04/12/17 at 17:45; Stop at 17:47; Status DC Haloperidol (Haldol) 10 mg STAT STAT PO Last administered on 04/12/17 13:04; Start 04/12/17 at 12:40; Stop 04/12/17 at 12:42; Status DC Haloperidol (Haldol) 10 mg STAT STAT PO Last administered on 04/12/17 17:51; Start 04/12/17 at 17:43; Stop 04/12/17 at 17:45; Status DC Haloperidol Decanoate (Haldol Decanoate) 50 mg Q14D IM Last administered on 09:07; Start 04/15/17 at 09:00; Stop 05/01/17 at 09:32; Status DC Haloperidol Decanoate (Haldol Decanoate) 50 mg Q14D STAT IM ; Start 02/18/17 at 20:24; Stop 02/18/17 at 20:25; Status Cancel Haloperidol Decanoate (Haldol Decanoate) 50 mg Q14D@0900 IM Last administered on 04/01/17 10:33; Start 03/18/17 at 09:00; Stop 04/11/17 at 20:35; Status DC Haloperidol Decanoate (Haldol Decanoate) 50 mg Q14D@14 IM Last administered on 03/04/17 13:27; Start 02/04/17 at 14:00; Stop 03/06/17 at 13:59; Status DC Haloperidol Decanoate (Haldol Decanoate) 75 mg Q14D IM ; Start 05/13/17 at 09:00 ; Stop 06/12/17 at 08:59; Status Cancel Home Med (Med Rec Complete!) ASDIRECTED XX ; Start 02/03/17 at 12:15; Stop at 12:15; Status DC Lorazepam (Ativan) 1 mg Q6HP PRN PO ANXIETY; Start 04/12/17 at 14:30; Stop at 21:59; Status DC Lorazepam (Ativan) 1 mg Q8H PRN PO anxiety/agitation Last administered on 22:27; Start 05/02/17 at 14:00; Stop 05/09/17 at 13:59 Lorazepam (Ativan) 1 mg Q8HP PRN PO ANXIETY/AGITATION Last administered on 20:52; Start 02/03/17 at 15:45; Stop 02/26/17 at 12:48; Status DC Lorazepam (Ativan) 1 mg STAT STAT PO Last administered on 04/12/17 13:04; Start 04/12/17 at 12:42; Stop 04/12/17 at 12:44; Status DC Lorazepam (Ativan) 1 mg TID PO Last administered on 03/19/17 08:04; Start 08/05 at 16:00; Stop 03/19/17 at 11:02; Status DC Lorazepam (Ativan) 1 mg TID PO Last administered on 03/26/17 08:06; Start at 21:00; Stop 03/26/17 at 11:14; Status DC Lorazepam (Ativan) 1 mg TID PRN PO Anxiety Last administered on 03/19/17 16:11 ; Start 03/19/17 at 11:15; Stop 03/21/17 at 16:07; Status DC Lorazepam (Ativan) 2 mg Q8H PO Last administered on 05/01/17 20:51; Start at 22:00; Stop 05/02/17 at 08:29; Status DC Lorazepam (Ativan) 2 mg STAT STAT IM ; Start 04/12/17 at 17:45; Stop 04/12/17 at 17:47; Status DC Lorazepam (Ativan) 2 mg STAT STAT PO Last administered on 04/12/17 17:51; Start 04/12/17 at 17:43; Stop 04/12/17 at 17:45; Status DC Lorazepam (Ativan) 4 mg Q8HP PRN PO ANXIETY AGITATION Last administered on 05/01 15:39; Start 04/14/17 at 16:00; Stop 05/01/17 at 16:00; Status DC Magnesium Hydroxide (Milk Of Magnesia) 30 ml DAILYPRN PRN PO CONSTIPATION; Start 02/03/17 at 15:45; Stop 03/05/17 at 15:44; Status DC Magnesium Hydroxide (Milk Of Magnesia) 30 ml DAILYPRN PRN PO CONSTIPATION Last administered on 03/24/17 15:50; Start 03/05/17 at 19:15; Stop 04/11/17 at 20:35 ; Status DC Magnesium Hydroxide (Milk Of Magnesia) 30 ml DAILYPRN PRN PO CONSTIPATION; Start 04/14/17 at 15:45; Stop 05/14/17 at 15:44 Metoprolol Tartrate (Lopressor) 25 mg BID PO Last administered on 04/12/17 19: 43; Start 04/12/17 at 21:00; Stop 04/12/17 at 21:59; Status DC Metoprolol Tartrate (Lopressor) 25 mg BID PO Last administered on 05/07/17 08: 22; Start 04/14/17 at 21:00; Stop 05/14/17 at 20:59 Mirtazapine (Remeron) 15 mg QHS PO Last administered on 02/27/17 21:37; Start 02/04/17 at 21:00; Stop 02/28/17 at 09:19; Status DC Mirtazapine (Remeron) 30 mg QHS PO Last administered on 03/18/17 20:56; Start 02/28/17 at 21:00; Stop 03/19/17 at 11:02; Status DC Mirtazapine (Remeron) 30 mg QHS PO Last administered on 04/28/17 22:50; Start 04/21/17 at 21:00; Stop 05/01/17 at 11:06; Status DC Mirtazapine (Remeron) 30 mg QHS PRN PO Insomnia; Start 03/19/17 at 11:15; Stop 03/21/17 at 16:05; Status DC Mirtazapine (Remeron) 45 mg QHS PO ; Start 04/12/17 at 21:00; Stop 04/12/17 at 21:59; Status DC Mirtazapine (Remeron) 45 mg QHS PO Last administered on 04/20/17 20:46; Start 04/14/17 at 21:00; Stop 04/21/17 at 14:45; Status DC Mirtazapine (Remeron) 45 mg QHSP PRN PO Insomnia Last administered on 20:35; Start 03/21/17 at 16:15; Stop 04/11/17 at 20:35; Status DC Miscellaneous (Unresolved Clarification Entry) SEE LABEL COMMENTS UNRESOLVED XX ; Start 03/07/17 at 00:01; Stop 03/10/17 at 15:08; Status DC Nicotine (Nicoderm Cq 14mg) 1 patch DAILY TD Last administered on 05/01/17 07: 30; Start 04/15/17 at 09:00; Stop 05/01/17 at 16:48; Status DC Nicotine (Nicoderm Cq 21mg) 1 patch DAILY TD Last administered on 04/11/17 07: 49; Start 02/04/17 at 09:00; Stop 04/11/17 at 20:35; Status DC Nicotine (Nicoderm Cq 21mg) 1 patch DAILY TD Last administered on 04/12/17 14: 54; Start 04/12/17 at 09:00; Stop 04/12/17 at 21:59; Status DC Nicotine (Nicoderm Cq 21mg) 1 patch DAILY TD Last administered on 05/07/17 08: 21; Start 05/01/17 at 09:00; Stop 05/31/17 at 08:59 Olanzapine (ZyPREXA) 10 mg DAILY PO Last administered on 02/04/17 08:59; Start 02/03/17 at 09:00; Stop 02/04/17 at 14:20; Status DC Paliperidone (Invega) 6 mg QHS PO Last administered on 05/01/17 20:52; Start 05/01/17 at 21:00; Stop 05/05/17 at 13:45; Status DC Paliperidone Palmitate (Invega Sustenna) 234 mg Q30D IM Last administered on 15:52; Start 05/06/17 at 09:00; Stop 06/05/17 at 08:59 Quetiapine Fumarate (SEROquel) 200 mg QHS PO ; Start 02/04/17 at 21:00; Stop at 13:42; Status DC Ramelteon (Rozerem) 8 mg QHS PO Last administered on 05/06/17 22:19; Start at 21:00; Stop 05/31/17 at 20:59 Trazodone HCl (Desyrel) 50 mg QHSP PRN PO INSOMNIA; Start 02/03/17 at 16:45; Stop 03/05/17 at 16:44; Status Cancel Trazodone HCl (Desyrel) 50 mg QHSP PRN PO INSOMNIA Last administered on 21:49; Start 02/28/17 at 12:45; Stop 03/10/17 at 15:11; Status DC Venlafaxine HCl (Effexor Xr) 75 mg DAILY PO Last administered on 02/06/17 08:28; Start 02/04/17 at 09:00; Stop 02/06/17 at 18:02; Status DC Venlafaxine HCl (Effexor Xr) 150 mg BID PO Last administered on 04/11/17 07:48; Start 03/07/17 at 09:00; Stop 04/11/17 at 20:35; Status DC Venlafaxine HCl (Effexor Xr) 150 mg BID PO ; Start 04/12/17 at 21:00; Stop 04/12/17 at 21:59; Status DC Venlafaxine HCl (Effexor Xr) 150 mg QHS PO Last administered on 02/23/17 21 :05; Start 02/07/17 at 21:00; Stop 02/24/17 at 17:59; Status DC Venlafaxine HCl (Effexor) 150 mg BID PO Last administered on 03/06/17 20:04; Start 02/24/17 at 21:00; Stop 03/06/17 at 23:26; Status DC Venlafaxine HCl (Effexor) 150 mg BID PO Last administered on 05/07/17 08:22; Start 04/14/17 at 21:00; Stop 05/14/17 at 20:59 Allergies Coded Allergies: Loxapine (Verified Allergy, Mild, 01/21/13) Thiothixene (Verified Allergy, Mild, 01/21/13) Fluphenazine (Verified Allergy, Unknown, 09/12/15) UNKNOWN Gamaliel (Verified Allergy, Unknown, UNKNOWN, 09/12/15) Meperidine (Verified Allergy, Unknown, UNKNOWN, 09/12/15) Phenothiazines (Verified Allergy, Unknown, UNKNOWN, 09/12/15) Thioridazine (Verified Allergy, Unknown, UNKNOWN, 09/12/15) KELVIN GARIBAY MD May 07, 2017 16:43
[2017-05-07 18:23] VITALS: BP 121/65
[2017-05-07] MEDS ORDERED: HALOPERIDOL 5 MG/ML VIAL (J1630) IM STA (20:27)
[2017-05-07] MEDS ORDERED: LORazepam 2 MG/ML VIAL (J2060) IM STA (20:27)
[2017-05-07] MEDS: HALOPERIDOL 5 MG TAB PO PRN (20:40)
[2017-05-07] MEDS: ARIPiprazole 15 MG TAB (AbiLIFY) PO SCH (20:40)
[2017-05-07] MEDS: RAMELTEON 8 MG TAB (ROZEREM) PO SCH (20:41)
[2017-05-07] MEDS: LORazepam 2 MG TAB PO PRN (20:41)
[2017-05-08] MEDS: VENLAFAXINE 37.5 MG TAB PO SCH ×2 (08:20→22:24)
[2017-05-08] MEDS: METOPROLOL TART 25 MG TABLET PO SCH ×2 (08:20→22:23)
[2017-05-08] MEDS: ARIPiprazole 10 MG TAB PO SCH (08:20)
[2017-05-08] MEDS: NICOTINE 21MG/24HR 1 EA TRANSDERMAL TD SCH (08:20)
[2017-05-08 18:00] VITALS: BP 108/64
[2017-05-08] MEDS: RAMELTEON 8 MG TAB (ROZEREM) PO SCH (21:00)
[2017-05-08] MEDS: GABAPENTIN 300 MG CAP PO SCH (22:22)
[2017-05-08] MEDS: ARIPiprazole 15 MG TAB (AbiLIFY) PO SCH (22:22)
[2017-05-09 06:21] VITALS: BP 95/52
[2017-05-09] MEDS: NICOTINE 21MG/24HR 1 EA TRANSDERMAL TD SCH (08:06)
[2017-05-09] MEDS: METOPROLOL TART 25 MG TABLET PO SCH ×2 (08:06→23:21)
[2017-05-09] MEDS: GABAPENTIN 300 MG CAP PO SCH ×3 (08:07→23:20)
[2017-05-09] MEDS: ARIPiprazole 10 MG TAB PO SCH ×2 (08:07→23:19)
[2017-05-09] MEDS: VENLAFAXINE 37.5 MG TAB PO SCH ×2 (08:07→23:19)
[2017-05-09 18:00] VITALS: BP 126/78
--- NOTE | 2017-05-09 18:19 | IPN ---
DATE: 05/08/2017 INTERVAL HISTORY: Medication side effect: The patient denies medication side effect, but also refuses to elaborate and extend information. He covers his face once again to avoid seeing this data analyst report writer. Behavior: Continues to be isolative to his room, has bizarre delusions and responds to internal stimuli although he is redirectable. Group attendance: Has been attending groups, but does not participate in them. Psychiatric symptom change: He continues to be delusional, responds to internal stimuli, and walks through the hallways really fast, looking really angry at other patients but goes back to his room. Very suspicious and guarded. VITAL SIGNS: Within normal limits NEW TEST RESULTS: There are no new test results. CURRENT MEDICATIONS: There have been no different medications except that this afternoon this data analyst report writer reordered gabapentin again because he refused to take it before, but reordered it hoping that he will be willing to take it once again. MENTAL STATUS EXAMINATION: GENERAL: Alert, suspicious, guarded, with very poor eye contact, dressed in personal clothes. SPEECH: Poverty of speech. THOUGHT PROCESS: Irrational, disorganized. THOUGHT CONTENT: Incoherent. ABSTRACT REASONING AND COMPUTATION: Unable to assess due to patient's delusional state, he is preoccupied with internal stimuli and not able to focus. DESCRIPTION OF ASSOCIATIONS: Loose. DESCRIPTION OF ABNORMAL OR PSYCHOTIC THOUGHTS: Highly delusional, bizarre, and paranoid. Denies suicidal and homicidal thoughts. Denies auditory or visual hallucinations, but he is responding to internal stimuli. JUDGMENT AND INSIGHT: Are very poor. ORIENTATION: He is oriented only to self and place. RECENT AND REMOTE MEMORY: Unable to assess at this time. ATTENTION SPAN AND CONCENTRATION: Poor. FUND OF KNOWLEDGE: Unable to assess at this time. MOOD: Irritable and angry. AFFECT: Is congruent to mood. DIAGNOSES 1. Paranoid schizophrenia. 2. Major depressive disorder. ASSESSMENT: The patient continues to be psychotic in spite that he received a 234 mg of paliperidone a couple of days ago and continues to be on Abilify 17.5 mg in total in 24 hours (17.5 mg per day between his every morning dose and his at bedtime dose). He occasionally receives Haldol when he is too agitated and occasionally receives Ativan when he feels very anxious. We will increase Abilify dose in order to help him regain some control over his psychosis. MANAGEMENT PLAN: Will increase Abilify once again, today he was restarted on gabapentin hoping that he will accept it because he has been refusing it. Psychotherapy: Will continue to encourage him to attend groups. Social: The patient has apparently some support from people that never come to visit him, but he receives phone calls and sometimes he gets agitated after he speaks to those people over the phone. DISPOSITION: The patient needs to be transferred to [place] and hopefully he will be transferred somewhere around this week. The patient continues to be psychotic and hopefully he will improve a little bit more with current medications. He will receive 157 mg intramuscular (IM) of Invega Sustenna and we will increase Abilify in the meantime. TIME SPENT: 20 minutes.
[2017-05-09] MEDS: RAMELTEON 8 MG TAB (ROZEREM) PO SCH ×2 (21:00→23:20)
--- NOTE | 2017-05-09 22:42 | ECGEPIP ---
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
[2017-05-10] MEDS: ARIPiprazole 15 MG TAB (AbiLIFY) PO SCH (08:51)
[2017-05-10] MEDS: VENLAFAXINE 37.5 MG TAB PO SCH ×2 (08:51→22:49)
[2017-05-10] MEDS: NICOTINE 21MG/24HR 1 EA TRANSDERMAL TD SCH (08:51)
[2017-05-10] MEDS: GABAPENTIN 300 MG CAP PO SCH ×3 (08:51→22:50)
[2017-05-10] MEDS: METOPROLOL TART 25 MG TABLET PO SCH ×2 (08:52→22:53)
--- NOTE | 2017-05-10 09:18 | IPN ---
DATE: 05/09/2017 VITAL SIGNS: Temperature 97.9. Pulse 97. Respirations 16. Blood pressure 95/52. CURRENT MEDICATIONS: - Abilify 15 mg every morning and 10 mg at bedtime - gabapentin 300 mg three times a day - Invega Sustenna IM 234 mg monthly - Effexor 150 mg twice a day - Haldol 10 mg every 8 hours as needed HISTORY OF PRESENT ILLNESS: This is a 52-year-old white male with a history of schizophrenia treated by Dr. Tapia who is not in today. The patient is seen at the request of the charge nurse. The patient has got the Invega Sustenna injection. He appears to be tolerating it well. He denies any side effects from it. The patient is on a waiting list for [facility] according to staff records. The patient does complain of primarily paranoid concerns. MENTAL STATUS EXAMINATION: The patient is alert and oriented. He is quite paranoid. He is guarded. He appears to be responding to internal stimuli. Insight is poor. Judgment is poor. The patient is a potential danger to himself and/or others due to his chronic psychosis. DIAGNOSES: Schizophrenia, paranoid type. Major depressive disorder by history. PLAN: Continue current management.
[2017-05-10] MEDS ORDERED: LORazepam 1 MG TAB PO PRN (11:38)
[2017-05-10] MEDS: HALOPERIDOL 5 MG TAB PO PRN (11:56)
[2017-05-10 18:00] VITALS: BP 128/69
[2017-05-10] MEDS: RAMELTEON 8 MG TAB (ROZEREM) PO SCH (22:49)
[2017-05-10] MEDS: ARIPiprazole 10 MG TAB PO SCH (22:50)
[2017-05-11] MEDS: NICOTINE 21MG/24HR 1 EA TRANSDERMAL TD SCH (08:00)
[2017-05-11] MEDS: GABAPENTIN 300 MG CAP PO SCH ×3 (08:00→21:37)
[2017-05-11] MEDS: VENLAFAXINE 37.5 MG TAB PO SCH ×2 (08:00→21:37)
[2017-05-11] MEDS: ARIPiprazole 15 MG TAB (AbiLIFY) PO SCH (08:00)
[2017-05-11] MEDS: METOPROLOL TART 25 MG TABLET PO SCH ×2 (08:02→21:44)
[2017-05-11 18:00] VITALS: BP 121/70
[2017-05-11] MEDS: RAMELTEON 8 MG TAB (ROZEREM) PO SCH (21:00)
[2017-05-11] MEDS: ARIPiprazole 10 MG TAB PO SCH (21:37)
[2017-05-12 07:11] VITALS: BP_SYST 123; BP_SYST 124; BP_SYST 95; BP_DIAS 54; BP_DIAS 65; BP_DIAS 74
[2017-05-12] MEDS: ARIPiprazole 15 MG TAB (AbiLIFY) PO SCH (09:00)
[2017-05-12] MEDS: GABAPENTIN 300 MG CAP PO SCH ×3 (09:00→21:00)
[2017-05-12] MEDS: VENLAFAXINE 37.5 MG TAB PO SCH ×2 (09:00→21:00)
[2017-05-12] MEDS: METOPROLOL TART 25 MG TABLET PO SCH ×2 (09:01→21:00)
[2017-05-12] MEDS: NICOTINE 21MG/24HR 1 EA TRANSDERMAL TD SCH (09:01)
[2017-05-12 11:49] VITALS: BP_SYST 100; BP_SYST 117; BP_SYST 121; BP_DIAS 55; BP_DIAS 58; BP_DIAS 60
[2017-05-12] MEDS: ARIPiprazole 10 MG TAB PO SCH (21:00)
[2017-05-12] MEDS: RAMELTEON 8 MG TAB (ROZEREM) PO SCH (21:00)
[2017-05-13] MEDS: METOPROLOL TART 25 MG TABLET PO SCH ×2 (08:03→20:55)
[2017-05-13] MEDS: GABAPENTIN 300 MG CAP PO SCH ×3 (08:03→20:53)
[2017-05-13] MEDS: NICOTINE 21MG/24HR 1 EA TRANSDERMAL TD SCH (08:04)
[2017-05-13] MEDS: ARIPiprazole 15 MG TAB (AbiLIFY) PO SCH (08:06)
[2017-05-13] MEDS: VENLAFAXINE 37.5 MG TAB PO SCH ×2 (08:07→20:56)
--- NOTE | 2017-05-13 08:07 | IPN ---
DATE: 05/12/2017 52-year-old male with a history of paranoid schizophrenia, who has been seen very unstable for the last couple of days. Reportedly on 05/10/2017, he walked naked into the male shower and asked everybody "Do you like what you see? " He painted the floyd in his room. He clogged the toilet the night before (05/09/2017) and again on 05/10/2017 he asked the nursing staff who were the people who were there with him in his room while nobody was there. Vital signs within normal limits. NEW TEST RESULTS: EKG order for him is positive for left inferior fascicular block. Just called the inpatient mental health unit so the hospitalist consult can be placed and they can come over and evaluate him. CURRENT MEDICATIONS: He continues to be on the same medications. MENTAL STATUS EXAMINATION: GENERAL: Alert, suspicious, guarded with very poor eye contact. Poverty of speech, sparse. Thought process disorganized, irrational. Thought content is not coherent. Abstract reasoning and computation: Unable to assess due to the patient's delusional state. Description of associations: Loose. Description of abnormal or psychotic thoughts: Highly delusional, guarded, very suspicious. Denies homicidal or suicidal ideation, but he is seen responding to internal stimuli. Judgment and insight are extremely poor. Orientation: He is oriented only to self and some of the staff members, not all. He is not oriented to date or time. Attention span and concentration are poor. Fund of knowledge: Unable to assess at this time. Mood anxious. Affect is congruent to mood. DIAGNOSES: 1. Paranoid schizophrenia (1). 2. Major depressive disorder. ASSESSMENT: The patient has decompensated. He is extremely psychotic. He is due for his next dose of Invega Sustenna 157 mg intramuscularly tomorrow. The patient has been approved by the ACT team and they will take him after he gets either discharged from the inpatient mental health unit or from [facility]. He will have a place where he will go and live but besides he has an apartment in [place] where he has been residing. The patient is severely ill and psychotic. We will continue on the same medications and we will continue to monitor and followup closely. TERRANCE
[2017-05-13] MEDS ORDERED: HALOPERIDOL DECANOATE 100 MG/ML VIAL (J1631) IM SCH (09:00)
[2017-05-13] MEDS ORDERED: PALIPERIDONE PALMITATE 156 MG/1ML INJ(INVEGA SUSTENNA)(J2426) IM ONE (14:00)
[2017-05-13 18:14] VITALS: BP_SYST 108; BP_SYST 112; BP_DIAS 58; BP_DIAS 68; BP_DIAS 76
[2017-05-13] MEDS: ARIPiprazole 10 MG TAB PO SCH (20:53)
[2017-05-13] MEDS: RAMELTEON 8 MG TAB (ROZEREM) PO SCH (21:00)
[2017-05-14 06:33] VITALS: BP_SYST 126; BP_SYST 137; BP_DIAS 101
[2017-05-14] MEDS: VENLAFAXINE 37.5 MG TAB PO SCH (08:07)
[2017-05-14] MEDS: ARIPiprazole 15 MG TAB (AbiLIFY) PO SCH (08:07)
[2017-05-14 08:08] VITALS: BP 131/69
[2017-05-14] MEDS: NICOTINE 21MG/24HR 1 EA TRANSDERMAL TD SCH (08:08)
[2017-05-14] MEDS: METOPROLOL TART 25 MG TABLET PO SCH (08:08)
[2017-05-14] MEDS: GABAPENTIN 300 MG CAP PO SCH ×3 (08:08→22:30)
[2017-05-14 13:04] VITALS: BP_SYST 111; BP_SYST 115; BP_SYST 125; BP_DIAS 61; BP_DIAS 62
--- NOTE | 2017-05-14 14:44 | MHIPN ---
DATE OF SERVICE: 05/13/2017 52-year-old male with a history of paranoid schizophrenia and major depressive disorder who has been extremely decompensated and psychotic for several days now. The patient received 156 mg of Invega Sustenna this afternoon at 2:30 p.m. but refused to take all his medications at night. Vital signs within normal limits. New test results: There is no new test result. Another electrocardiogram (EKG) will be ordered on Friday as a control. CURRENT MEDICATIONS: His medications continue to be the same, except for the Invega Sustenna that he received today, 156 mg intramuscular (IM). After this dose of Invega Sustenna, he will be due for his monthly dose of 234 mg in one month. MENTAL STATUS EXAMINATION: The patient is alert, oriented to place and self and person only, guarded, and suspicious, uncooperative with interview. His speech is sparse, has poverty of speech. His thought process is irrational. His thought content is delusional and is about being transferred to [place] or being discharged from the unit. He denies suicidal or homicidal ideation, but he is responding to internal stimuli, has paranoid and persecutory delusions, and possibly is having auditory or visual hallucinations, although he denies those. Attention and concentration are poor. Recent and remote memory are poor. Abstract thinking and computation are limited. Description of associations are loose. He is oriented only to place and person. His insight and judgment are poor, and his impulse control is fair. ASSESSMENT: The patient continues to be highly delusional and psychotic, continues to be guarded and paranoid, isolated to his room. He refused medications at night, although he accepted his Invega Sustenna 156 mg IM shot this afternoon. He has continued to make inappropriate comments to staff and peers and seems to forget quite easily what he says because he is in and out of his psychotic problem. Will followup and monitor closely.
[2017-05-14] MEDS: RAMELTEON 8 MG TAB (ROZEREM) PO SCH (22:30)
[2017-05-14] MEDS: ARIPiprazole 10 MG TAB PO SCH (22:30)
[2017-05-15] MEDS: VENLAFAXINE **XR** 75MG CAPSULE PO SCH (09:31)
[2017-05-15] MEDS: GABAPENTIN 300 MG CAP PO SCH ×3 (09:31→21:00)
[2017-05-15] MEDS: ARIPiprazole 15 MG TAB (AbiLIFY) PO SCH (09:31)
[2017-05-15] MEDS: NICOTINE 21MG/24HR 1 EA TRANSDERMAL TD SCH (09:32)
[2017-05-15] MEDS ORDERED: LORazepam 2 MG TAB PO STA (14:17)
--- NOTE | 2017-05-15 15:09 | MHIPNPDOC ---
[facility] Progress Note Progress Note DATE OF SERVICE: 05/15/17 52-year-old male with history of paranoid schizophrenia and major depressive disorder who is day 102 of psychiatric hospitalization. Patient is extremely psychotic, he decompensated approximately 3 weeks ago when he started refusing taking his medications. He has had a 234 mg injection of paliperidone and 2 days ago he had the 156 injection of paliperidone. He is indicated taking Abilify and gabapentin but he is reluctant to take his medications and mostly all the time he refuses them. Patient has been calling his toilet, walked into the males shower and maintaining appropriate sexual comments, wrote on the wall of his room very crude and in appropriate things, has been walking up and down the hallway making signs as if he will the holding a gun, has become increasingly angry and agitated. Subjective--- patient is refusing to talk to me, as soon as he sees me [place] years and walks out of the room. As per staff he has become agitated and angry because his bathroom has been locked and he is not allowed to go into his bathroom unless that he is under staff supervision because he has long that several times. Patient haS been responding to internal stimuli, talks to himself make signals with his hands, looks extremely angry and shuts the door many times on staff. Objective-- Patient is alert, uncooperative, guarded, paranoid and suspicious. Avoids eye contact, runs when he sees this sign writer hand, is responding to internal stimuli, extremely paranoid, talks to himself, is nOT willing to have a conversation with this sign writer hand. It is not possible to assess other aspects from the mental status examination because patient is completely uncooperative. Assessment ---- patient is getting worse and worse every day, this sign writer hand has modified his medications, he has received is receiving Pegasus sustain a twice once for 234 mg and the other one 456 he is taking Abilify 17.5 mg per day, is indicated for gabapentin, Ativan, Haldol when necessary. Patient keeps getting more and more psychotic. Plan ---This afternoon the mental hygiene services will be contacted because other hospitals that are long-term have been avoiding taking him and this patient needs treatment, longer treatment. This afternoon he accepted 2 mg of Ativan and he is supposed to receive 1 mg by mouth every 8 hours when necessary for anxiety and agitation. Will modify that to 1 mg by mouth every 6 hours for anxiety or agitation. Still expecting to hear from Lou, today at noontime call Dr. Aceves and the person to the call says she would give him a message, I provided her with my cell phone number so that he will get in touch with me. Still having heard from him. Will monitor closely and follow-up. Vital Signs Vital Signs Date Time Temp Pulse Resp B/P (MAP) Pulse Ox O2 Delivery O2 Flow Rate FiO2 05/15/17 07:03 05/14/17 13:04 88 90 98 05/13/17 18:14 97.5 16 Current Medications Current Medications Acetaminophen (Tylenol Tab) 650 mg Q6HP PRN PO HEADACHE or DISCOMFORT Last administered on 04/11/17 06:17; Start 02/03/17 at 15:45; Stop 04/11/17 at 20:35 ; Status DC Acetaminophen (Tylenol Tab) 650 mg Q6HP PRN PO HEADACHE or DISCOMFORT; Start at 19:15; Stop 04/04/17 at 19:14; Status Cancel Acetaminophen (Tylenol Tab) 650 mg Q6HP PRN PO HEADACHE or DISCOMFORT; Start at 15:45; Stop 06/12/17 at 15:44 Al Hydrox/Mg Hydrox/Simethicone (Mylanta) 30 ml Q4HP PRN PO HEARTBURN/ INDIGESTION; Start 02/03/17 at 15:45; Stop 03/05/17 at 15:44; Status DC Al Hydrox/Mg Hydrox/Simethicone (Mylanta) 30 ml Q4HP PRN PO HEARTBURN/ INDIGESTION Last administered on 04/01/17 22:41; Start 03/05/17 at 19:30; Stop 04/11/17 at 20:35; Status DC Al Hydrox/Mg Hydrox/Simethicone (Mylanta) 30 ml Q4HP PRN PO HEARTBURN/ INDIGESTION; Start 03/06/17 at 10:00; Stop 04/04/17 at 09:59; Status Cancel Al Hydrox/Mg Hydrox/Simethicone (Mylanta) 30 ml Q4HP PRN PO HEARTBURN/ INDIGESTION Last administered on 04/14/17 23:36; Start 04/14/17 at 15:45; Stop 06/12/17 at 15:44 Aripiprazole (AbiLIFY) 2.5 mg QHS PO Last administered on 02/16/17 20:07; Start 02/07/17 at 21:00; Stop 02/17/17 at 12:25; Status DC Aripiprazole (AbiLIFY) 5 mg QHS PO Last administered on 02/23/17 21:06; Start 02/17/17 at 21:00; Stop 02/24/17 at 17:48; Status DC Aripiprazole (AbiLIFY) 7.5 mg BID PO Last administered on 02/25/17 08:02; Start 02/24/17 at 21:00; Stop 02/25/17 at 11:54; Status DC Aripiprazole (AbiLIFY) 7.5 mg QHS PO Last administered on 05/08/17 22:22; Start 05/04/17 at 21:00; Stop 05/09/17 at 08:15; Status DC Aripiprazole (AbiLIFY) 10 mg BID PO Last administered on 03/21/17 08:19; Start 03/18/17 at 21:00; Stop 03/21/17 at 16:03; Status DC Aripiprazole (AbiLIFY) 10 mg BID PO Last administered on 03/03/17 08:14; Start 02/25/17 at 21:00; Stop 03/03/17 at 10:13; Status DC Aripiprazole (AbiLIFY) 10 mg DAILY PO Last administered on 05/09/17 08:07; Start 05/02/17 at 09:00; Stop 05/09/17 at 08:13; Status DC Aripiprazole (AbiLIFY) 10 mg QHS PO Last administered on 05/14/17 22:30; Start 05/09/17 at 21:00; Stop 06/08/17 at 20:59 Aripiprazole (AbiLIFY) 15 mg BID PO Last administered on 03/08/17 08:08; Start 03/03/17 at 21:00; Stop 03/08/17 at 08:14; Status DC Aripiprazole (AbiLIFY) 15 mg BID PO ; Start 03/08/17 at 09:00; Stop 04/02/17 at 20:59; Status Cancel Aripiprazole (AbiLIFY) 15 mg BID PO Last administered on 03/10/17 08:03; Start 03/08/17 at 21:00; Stop 03/10/17 at 15:14; Status DC Aripiprazole (AbiLIFY) 15 mg BID PO Last administered on 03/18/17 08:37; Start 03/14/17 at 21:00; Stop 03/18/17 at 12:15; Status DC Aripiprazole (AbiLIFY) 15 mg BID PO Last administered on 03/25/17 08:05; Start 03/21/17 at 21:00; Stop 03/25/17 at 16:17; Status DC Aripiprazole (AbiLIFY) 15 mg DAILY PO Last administered on 05/15/17 09:31; Start 05/10/17 at 09:00; Stop 06/09/17 at 08:59 Aripiprazole (AbiLIFY) 20 mg BID PO Last administered on 03/14/17 08:05; Start 03/10/17 at 21:00; Stop 03/14/17 at 14:42; Status DC Aripiprazole (AbiLIFY) 20 mg BID PO ; Start 04/12/17 at 21:00; Stop 04/12/17 at 21:59; Status DC Aripiprazole (AbiLIFY) 20 mg BID PO Last administered on 04/30/17 22:00; Start 04/14/17 at 21:00; Stop 05/01/17 at 10:39; Status DC Aripiprazole (AbiLIFY) 20 mg BID PO Last administered on 04/11/17 07:48; Start 03/25/17 at 21:00; Stop 04/11/17 at 20:35; Status DC Aripiprazole (AbiLIFY) 20 mg DAILY PO ; Start 05/01/17 at 09:00; Stop 05/02/17 at 08:31; Status DC Aspirin (Aspirin Chewable) 81 mg DAILY PO Last administered on 04/12/17 19:58 ; Start 04/12/17 at 09:00; Stop 04/12/17 at 21:59; Status DC Aspirin (Aspirin) 325 mg DAILY PO ; Start 04/14/17 at 09:00; Stop 04/14/17 at 16 :11; Status DC Aspirin (Aspirin) 325 mg DAILY PO ; Start 04/15/17 at 09:00; Stop 04/15/17 at 09 :00; Status DC Benztropine Mesylate (Cogentin) 0.5 mg BID PO Last administered on 02/23/17 08: 43; Start 02/04/17 at 09:00; Stop 02/23/17 at 13:41; Status DC Benztropine Mesylate (Cogentin) 1 mg BID PO Last administered on 03/14/17 08: 05; Start 02/23/17 at 09:00; Stop 03/14/17 at 16:09; Status DC Benztropine Mesylate (Cogentin) 1 mg TID PO Last administered on 03/24/17 20:11 ; Start 03/14/17 at 21:00; Stop 03/25/17 at 08:59; Status DC Buspirone HCl (Buspar) 7.5 mg TID PO Last administered on 02/26/17 08:04; Start 02/04/17 at 16:00; Stop 02/26/17 at 12:48; Status DC Cefdinir (Omnicef) 300 mg BID PO ; Start 04/12/17 at 21:00; Stop 04/12/17 at 21: 59; Status DC Cefdinir (Omnicef) 300 mg BID PO Last administered on 05/05/17 08:06; Start at 21:00; Stop 05/05/17 at 11:28; Status DC Clozapine (Clozaril) 25 mg QHS PO Last administered on 03/20/17 21:41; Start at 21:00; Stop 03/21/17 at 08:59; Status DC Clozapine (Clozaril) 50 mg QAM PO Last administered on 03/18/17 08:37; Start 03/14/17 at 09:00; Stop 03/18/17 at 21:20; Status DC Clozapine (Clozaril) 50 mg QHS PO Last administered on 03/25/17 22:42; Start at 21:00; Stop 03/27/17 at 13:55; Status DC Clozapine (Clozaril) 75 mg QHS PO Last administered on 04/09/17 20:17; Start 03/27/17 at 21:00; Stop 04/10/17 at 14:36; Status DC Clozapine (Clozaril) 100 mg QHS PO Last administered on 04/09/17 20:17; Start 04/03/17 at 21:00; Stop 04/10/17 at 14:34; Status DC Clozapine (Clozaril) 150 mg QHS PO ; Start 04/10/17 at 21:00; Stop 04/17/17 at 20:59; Status Cancel Clozapine (Clozaril) 150 mg QHS PO ; Start 04/11/17 at 21:00; Stop 04/11/17 at 21:00; Status Cancel Clozapine (Clozaril) 200 mg QHS PO Last administered on 04/10/17 20:03; Start 04/10/17 at 21:00; Stop 04/11/17 at 11:18; Status DC Diphenhydramine HCl (Benadryl) 50 mg STAT STAT IM ; Start 04/12/17 at 17:45; Stop 04/12/17 at 17:47; Status DC Diphenhydramine HCl (Benadryl) 50 mg STAT STAT PO Last administered on 13:04; Start 04/12/17 at 12:41; Stop 04/12/17 at 12:42; Status DC Diphenhydramine HCl (Benadryl) 50 mg STAT STAT PO Last administered on 17:51; Start 04/12/17 at 17:43; Stop 04/12/17 at 17:45; Status DC Docusate Sodium (Colace) 100 mg BID PO Last administered on 04/11/17 07:48; Start 02/03/17 at 21:00; Stop 04/11/17 at 20:35; Status DC Gabapentin (Neurontin) 100 mg QAM PO Last administered on 02/24/17 08:14; Start 02/04/17 at 09:00; Stop 02/24/17 at 17:59; Status DC Gabapentin (Neurontin) 200 mg QAM PO Last administered on 03/19/17 08:04; Start 02/25/17 at 09:00; Stop 03/19/17 at 11:00; Status DC Gabapentin (Neurontin) 300 mg QHS PO Last administered on 04/10/17 20:03; Start 03/21/17 at 21:00; Stop 04/11/17 at 20:35; Status DC Gabapentin (Neurontin) 300 mg QHS PO ; Start 04/12/17 at 21:00; Stop 04/12/17 at 21:59; Status DC Gabapentin (Neurontin) 300 mg QHS PO Last administered on 04/30/17 22:00; Start 04/14/17 at 21:00; Stop 05/01/17 at 10:36; Status DC Gabapentin (Neurontin) 300 mg TID PO ; Start 03/21/17 at 21:00; Stop 03/21/17 at 21:00; Status DC Gabapentin (Neurontin) 300 mg TID PO Last administered on 05/15/17 14:26; Start 05/08/17 at 21:00; Stop 06/07/17 at 20:59 Gabapentin (Neurontin) 400 mg QHS PO Last administered on 03/18/17 20:56; Start 02/04/17 at 21:00; Stop 03/19/17 at 11:00; Status DC Gabapentin (Neurontin) 600 mg BID PO ; Start 04/14/17 at 21:00; Stop 04/14/17 at 21:00; Status DC Gabapentin (Neurontin) 600 mg BID@0900,1600 PO Last administered on 04/11/17 07:48; Start 03/21/17 at 16:00; Stop 04/11/17 at 20:35; Status DC Gabapentin (Neurontin) 600 mg BID@0900,1600 PO Last administered on 04/12/17 14:54; Start 04/12/17 at 16:00; Stop 04/12/17 at 21:59; Status DC Gabapentin (Neurontin) 600 mg BID@0900,1600 PO Last administered on 04/30/17 15:40; Start 04/14/17 at 16:00; Stop 05/01/17 at 10:36; Status DC Haloperidol (Haldol) 5 mg STAT STAT IM ; Start 05/07/17 at 20:27; Stop at 20:28; Status DC Haloperidol (Haldol) 10 mg Q8HP PRN PO ANXIETY/AGITATION Last administered on 11:56; Start 04/14/17 at 15:45; Stop 06/12/17 at 15:44 Haloperidol (Haldol) 10 mg STAT STAT IM ; Start 04/12/17 at 17:45; Stop at 17:47; Status DC Haloperidol (Haldol) 10 mg STAT STAT PO Last administered on 04/12/17 13:04; Start 04/12/17 at 12:40; Stop 04/12/17 at 12:42; Status DC Haloperidol (Haldol) 10 mg STAT STAT PO Last administered on 04/12/17 17:51; Start 04/12/17 at 17:43; Stop 04/12/17 at 17:45; Status DC Haloperidol Decanoate (Haldol Decanoate) 50 mg Q14D IM Last administered on 09:07; Start 04/15/17 at 09:00; Stop 05/01/17 at 09:32; Status DC Haloperidol Decanoate (Haldol Decanoate) 50 mg Q14D STAT IM ; Start 02/18/17 at 20:24; Stop 02/18/17 at 20:25; Status Cancel Haloperidol Decanoate (Haldol Decanoate) 50 mg Q14D@0900 IM Last administered on 04/01/17 10:33; Start 03/18/17 at 09:00; Stop 04/11/17 at 20:35; Status DC Haloperidol Decanoate (Haldol Decanoate) 50 mg Q14D@14 IM Last administered on 03/04/17 13:27; Start 02/04/17 at 14:00; Stop 03/06/17 at 13:59; Status DC Haloperidol Decanoate (Haldol Decanoate) 75 mg Q14D IM ; Start 05/13/17 at 09:00 ; Stop 06/12/17 at 08:59; Status Cancel Home Med (Med Rec Complete!) ASDIRECTED XX ; Start 02/03/17 at 12:15; Stop at 12:15; Status DC Lorazepam (Ativan) 1 mg Q6HP PRN PO ANXIETY; Start 04/12/17 at 14:30; Stop at 21:59; Status DC Lorazepam (Ativan) 1 mg Q8H PRN PO anxiety/agitation Last administered on 20:41; Start 05/02/17 at 14:00; Stop 05/10/17 at 11:38; Status DC Lorazepam (Ativan) 1 mg Q8H PRN PO anxiety/agitation Last administered on 11:57; Start 05/10/17 at 11:38; Stop 05/22/17 at 11:37 Lorazepam (Ativan) 1 mg Q8HP PRN PO ANXIETY/AGITATION Last administered on 20:52; Start 02/03/17 at 15:45; Stop 02/26/17 at 12:48; Status DC Lorazepam (Ativan) 1 mg STAT STAT IM ; Start 05/07/17 at 20:27; Stop 05/07/17 at 20:28; Status DC Lorazepam (Ativan) 1 mg STAT STAT PO Last administered on 04/12/17 13:04; Start 04/12/17 at 12:42; Stop 04/12/17 at 12:44; Status DC Lorazepam (Ativan) 1 mg TID PO Last administered on 03/19/17 08:04; Start 08/05 at 16:00; Stop 03/19/17 at 11:02; Status DC Lorazepam (Ativan) 1 mg TID PO Last administered on 03/26/17 08:06; Start at 21:00; Stop 03/26/17 at 11:14; Status DC Lorazepam (Ativan) 1 mg TID PRN PO Anxiety Last administered on 03/19/17 16:11 ; Start 03/19/17 at 11:15; Stop 03/21/17 at 16:07; Status DC Lorazepam (Ativan) 2 mg Q8H PO Last administered on 05/01/17 20:51; Start at 22:00; Stop 05/02/17 at 08:29; Status DC Lorazepam (Ativan) 2 mg STAT STAT IM ; Start 04/12/17 at 17:45; Stop 04/12/17 at 17:47; Status DC Lorazepam (Ativan) 2 mg STAT STAT PO Last administered on 04/12/17 17:51; Start 04/12/17 at 17:43; Stop 04/12/17 at 17:45; Status DC Lorazepam (Ativan) 2 mg STAT STAT PO Last administered on 05/15/17 14:26; Start 05/15/17 at 14:17; Stop 05/15/17 at 14:19; Status DC Lorazepam (Ativan) 4 mg Q8HP PRN PO ANXIETY AGITATION Last administered on 05/01 15:39; Start 04/14/17 at 16:00; Stop 05/01/17 at 16:00; Status DC Magnesium Hydroxide (Milk Of Magnesia) 30 ml DAILYPRN PRN PO CONSTIPATION; Start 02/03/17 at 15:45; Stop 03/05/17 at 15:44; Status DC Magnesium Hydroxide (Milk Of Magnesia) 30 ml DAILYPRN PRN PO CONSTIPATION Last administered on 03/24/17 15:50; Start 03/05/17 at 19:15; Stop 04/11/17 at 20:35 ; Status DC Magnesium Hydroxide (Milk Of Magnesia) 30 ml DAILYPRN PRN PO CONSTIPATION; Start 04/14/17 at 15:45; Stop 06/12/17 at 15:44 Metoprolol Tartrate (Lopressor) 25 mg BID PO Last administered on 04/12/17 19: 43; Start 04/12/17 at 21:00; Stop 04/12/17 at 21:59; Status DC Metoprolol Tartrate (Lopressor) 25 mg BID PO Last administered on 05/14/17 08: 08; Start 04/14/17 at 21:00; Stop 05/14/17 at 20:59; Status DC Mirtazapine (Remeron) 15 mg QHS PO Last administered on 02/27/17 21:37; Start 02/04/17 at 21:00; Stop 02/28/17 at 09:19; Status DC Mirtazapine (Remeron) 30 mg QHS PO Last administered on 03/18/17 20:56; Start 02/28/17 at 21:00; Stop 03/19/17 at 11:02; Status DC Mirtazapine (Remeron) 30 mg QHS PO Last administered on 04/28/17 22:50; Start 04/21/17 at 21:00; Stop 05/01/17 at 11:06; Status DC Mirtazapine (Remeron) 30 mg QHS PRN PO Insomnia; Start 03/19/17 at 11:15; Stop 03/21/17 at 16:05; Status DC Mirtazapine (Remeron) 45 mg QHS PO ; Start 04/12/17 at 21:00; Stop 04/12/17 at 21:59; Status DC Mirtazapine (Remeron) 45 mg QHS PO Last administered on 04/20/17 20:46; Start 04/14/17 at 21:00; Stop 04/21/17 at 14:45; Status DC Mirtazapine (Remeron) 45 mg QHSP PRN PO Insomnia Last administered on 20:35; Start 03/21/17 at 16:15; Stop 04/11/17 at 20:35; Status DC Miscellaneous (Unresolved Clarification Entry) SEE LABEL COMMENTS UNRESOLVED XX ; Start 03/07/17 at 00:01; Stop 03/10/17 at 15:08; Status DC Nicotine (Nicoderm Cq 14mg) 1 patch DAILY TD Last administered on 05/01/17 07: 30; Start 04/15/17 at 09:00; Stop 05/01/17 at 16:48; Status DC Nicotine (Nicoderm Cq 21mg) 1 patch DAILY TD Last administered on 04/11/17 07: 49; Start 02/04/17 at 09:00; Stop 04/11/17 at 20:35; Status DC Nicotine (Nicoderm Cq 21mg) 1 patch DAILY TD Last administered on 04/12/17 14: 54; Start 04/12/17 at 09:00; Stop 04/12/17 at 21:59; Status DC Nicotine (Nicoderm Cq 21mg) 1 patch DAILY TD Last administered on 05/15/17 09: 32; Start 05/01/17 at 09:00; Stop 05/31/17 at 08:59 Olanzapine (ZyPREXA) 10 mg DAILY PO Last administered on 02/04/17 08:59; Start 02/03/17 at 09:00; Stop 02/04/17 at 14:20; Status DC Paliperidone (Invega) 6 mg QHS PO Last administered on 05/01/17 20:52; Start 05/01/17 at 21:00; Stop 05/05/17 at 13:45; Status DC Paliperidone Palmitate (Invega Sustenna) 234 mg Q30D IM Last administered on 15:52; Start 05/06/17 at 09:00; Stop 06/05/17 at 08:59 Quetiapine Fumarate (SEROquel) 200 mg QHS PO ; Start 02/04/17 at 21:00; Stop at 13:42; Status DC Ramelteon (Rozerem) 8 mg QHS PO Last administered on 05/14/17 22:30; Start at 21:00; Stop 05/31/17 at 20:59 Trazodone HCl (Desyrel) 50 mg QHSP PRN PO INSOMNIA; Start 02/03/17 at 16:45; Stop 03/05/17 at 16:44; Status Cancel Trazodone HCl (Desyrel) 50 mg QHSP PRN PO INSOMNIA Last administered on 21:49; Start 02/28/17 at 12:45; Stop 03/10/17 at 15:11; Status DC Venlafaxine HCl (Effexor Xr) 75 mg DAILY PO Last administered on 02/06/17 08:28; Start 02/04/17 at 09:00; Stop 02/06/17 at 18:02; Status DC Venlafaxine HCl (Effexor Xr) 150 mg BID PO Last administered on 04/11/17 07:48; Start 03/07/17 at 09:00; Stop 04/11/17 at 20:35; Status DC Venlafaxine HCl (Effexor Xr) 150 mg BID PO ; Start 04/12/17 at 21:00; Stop 04/12/17 at 21:59; Status DC Venlafaxine HCl (Effexor Xr) 150 mg QHS PO Last administered on 02/23/17 21 :05; Start 02/07/17 at 21:00; Stop 02/24/17 at 17:59; Status DC Venlafaxine HCl (Effexor Xr) 300 mg DAILY PO Last administered on 09:31; Start 05/15/17 at 09:00; Stop 06/14/17 at 08:59 Venlafaxine HCl (Effexor) 150 mg BID PO Last administered on 03/06/17 20:04; Start 02/24/17 at 21:00; Stop 03/06/17 at 23:26; Status DC Venlafaxine HCl (Effexor) 150 mg BID PO Last administered on 05/14/17 08:07; Start 04/14/17 at 21:00; Stop 05/14/17 at 20:30; Status DC Allergies Coded Allergies: Loxapine (Verified Allergy, Mild, 01/21/13) Thiothixene (Verified Allergy, Mild, 01/21/13) Fluphenazine (Verified Allergy, Unknown, 09/12/15) UNKNOWN [place] (Verified Allergy, Unknown, UNKNOWN, 09/12/15) Meperidine (Verified Allergy, Unknown, UNKNOWN, 09/12/15) Phenothiazines (Verified Allergy, Unknown, UNKNOWN, 09/12/15) Thioridazine (Verified Allergy, Unknown, UNKNOWN, 09/12/15) KELVIN GARIBAY MD May 15, 2017 15:09
--- NOTE | 2017-05-15 16:22 | MHIPN ---
DATE: 05/14/2017 A 52-year-old male with a history of: 1. Paranoid schizophrenia. 2. Major depressive disorder. HISTORY: The patient has been extremely decompensated, extremely psychotic. He plugged again his toilet and for that reason, he will have to be supervised whenever he goes into the toilet. According to staff and to this insurance underwriter sales, the patient has been extremely delusional, paranoid and guarded, isolated to his room, not willing to engage with minimal conversation with staff members. VITAL SIGNS: Within normal limits. NEW TEST RESULTS: There are no new test results. CURRENT MEDICATIONS: There have been no adjustments on medications. MENTAL STATUS EXAMINATION: The patient is alert, suspicious, guarded and paranoid. He has no eye contact at all, is avoidant and is not willing to answer most of this insurance underwriter sales's questions. His speech is sparse, monotone, and monosyllabic. His thought process is irrational and his thought content is incoherent. He denies auditory and visual hallucinations, but he is responding to internal stimuli, he is paranoid, guarded and suspicious. He denies suicidal or homicidal ideation. His attention and concentration are poor. He gets easily distracted because he responds to internal stimuli, and it was not possible to evaluate memory, abstract thinking and computation because he refused to answer questions. DESCRIPTION OF ASSOCIATIONS: Associates are loose. He seems to be oriented only to place and person, his insight and judgment are extremely poor. His impulse control is poor too. ASSESSMENT: The patient has been deteriorating, the only modification that has been made to his medications was venlafaxine; it was discontinued - the short-acting one and it was ordered the long-acting one because he counts the tablets that he is going to take and he does not like to take a lot of tablets. He becomes suspicious of them, and then he says he is taking a lot of medications, even when medications have been substantially reduced because he has been refusing to take them. He will not be taking venlafaxine 150 mg twice a day; instead, he will be taking venlafaxine 300 mg once a day. Will followup and monitor closely.
[2017-05-15 18:00] VITALS: BP 131/70
[2017-05-15] MEDS: RAMELTEON 8 MG TAB (ROZEREM) PO SCH (21:00)
[2017-05-15] MEDS: ARIPiprazole 10 MG TAB PO SCH (21:00)
[2017-05-16 06:19] VITALS: BP 117/58
[2017-05-16 06:20] VITALS: BP_SYST 117; BP_SYST 141; BP_DIAS 58; BP_DIAS 82
[2017-05-16] MEDS: ARIPiprazole 15 MG TAB (AbiLIFY) PO SCH (08:29)
[2017-05-16] MEDS: VENLAFAXINE **XR** 75MG CAPSULE PO SCH (08:29)
[2017-05-16] MEDS: GABAPENTIN 300 MG CAP PO SCH ×3 (08:29→20:46)
[2017-05-16] MEDS: NICOTINE 21MG/24HR 1 EA TRANSDERMAL TD SCH (08:30)
[2017-05-16 13:26] VITALS: BP_SYST 132; BP_SYST 144; BP_SYST 146; BP_DIAS 66; BP_DIAS 76
[2017-05-16] MEDS: ARIPiprazole 10 MG TAB PO SCH (20:46)
[2017-05-16] MEDS: MIRTAZAPINE 15 MG TAB PO SCH ×2 (21:00→22:37)
[2017-05-17] MEDS: GABAPENTIN 300 MG CAP PO SCH ×3 (08:06→21:42)
[2017-05-17] MEDS: ARIPiprazole 15 MG TAB (AbiLIFY) PO SCH (08:06)
[2017-05-17] MEDS: VENLAFAXINE **XR** 75MG CAPSULE PO SCH (08:07)
[2017-05-17] MEDS: NICOTINE 21MG/24HR 1 EA TRANSDERMAL TD SCH (08:07)
[2017-05-17 18:24] VITALS: BP 121/68
[2017-05-17] MEDS: MIRTAZAPINE 15 MG TAB PO SCH (21:00)
[2017-05-17] MEDS: ARIPiprazole 10 MG TAB PO SCH (21:42)
[2017-05-18] MEDS: ARIPiprazole 15 MG TAB (AbiLIFY) PO SCH (08:39)
[2017-05-18] MEDS: GABAPENTIN 300 MG CAP PO SCH ×3 (08:39→20:39)
[2017-05-18] MEDS: VENLAFAXINE **XR** 75MG CAPSULE PO SCH (08:40)
[2017-05-18] MEDS: NICOTINE 21MG/24HR 1 EA TRANSDERMAL TD SCH (08:40)
--- NOTE | 2017-05-18 16:49 | MHIPN ---
DATE: 05/16/2017 52-year-old male with a history of paranoid schizophrenia and major depressive disorder who is on day 103 days of psychiatric hospitalization. SUBJECTIVE: The patient was reported by staff as being inappropriate and awkward. He made movement in the hallways as if he will be skiing. He was wearing a wet T-shirt. His hospital pants were rolled up next to his knees, and yesterday he tore apart his jeans. He has been seen responding to internal stimuli. Today he is seen angry, but was very agitated and guarded. OBJECTIVE: The patient was alert, oriented to self and place, denies suicidal and homicidal ideation, denied auditory and visual hallucinations, but he was seen responding to internal stimuli. He continues to be extremely delusional. He is guarded, paranoid. When he talked to this development writer, he had his arms crossed over his chest, would not face me, would not look at me, covered his eyes and stepped out of the room almost immediately. His thought process is disorganized. His thought content is incoherent, delusional. His speech is sparse. It is not possible to evaluate abstract thinking and computation because the patient is uncooperative and is extremely delusional. His attention and concentration are extremely poor. It is not possible to evaluate fund of knowledge. His insight and judgment are very poor, and his impulse control is fair. ASSESSMENT: The patient continues to decompensate. It is not possible to increase medications because the patient had heart problems one month ago and he had to be transferred to the medical floor for atrial flutter. The reason that the patient is not being medicated with more antipsychotics is exactly because of the heart problems that he has had, and he developed pneumonia, possibly because of the use of Clozaril. We will followup closely and monitor for any possible change. Efforts are being made for him to be accepted at [facility]; however, they continue to require an increase in medications. The reason the medications are not being increased is because he is a 52-year-old man who has received antipsychotics all of his life and he has heart problems. We will followup.
[2017-05-18 18:33] VITALS: BP 110/58
[2017-05-18] MEDS: ARIPiprazole 10 MG TAB PO SCH (20:39)
[2017-05-18] MEDS: MIRTAZAPINE 15 MG TAB PO SCH (21:00)
[2017-05-19] MEDS: ARIPiprazole 15 MG TAB (AbiLIFY) PO SCH (08:12)
[2017-05-19] MEDS: GABAPENTIN 300 MG CAP PO SCH ×3 (08:12→21:02)
[2017-05-19] MEDS: VENLAFAXINE **XR** 75MG CAPSULE PO SCH (08:12)
[2017-05-19] MEDS: NICOTINE 21MG/24HR 1 EA TRANSDERMAL TD SCH (08:13)
[2017-05-19] MEDS: cloZAPine 25 MG TAB (S0136) PO SCH (13:50)
[2017-05-19 14:14] LABS: BASO # 0.1 K/mm3 (0.0-0.2); BASO % 1.1 % (0.0-1.0); EOS # 0.4 K/mm3 (0.0-0.50); EOS % 4.3 % (0.0-3.0); LARGE UNSTAINED CELL # 0.2 K/mm3 (0.0-0.4); LARGE UNSTAINED CELL % 1.8 % (0.0-4.0); LYMPH # 2.2 K/mm3 (1.5-4.5); LYMPH % 22.3 % (24.0-44.0); MEAN CORPUSCULAR VOLUME 91.3 fl (80.0-96.0); MONO # 0.7 K/mm3 (0.0-0.8); MONO % 7.5 % (0.0-5.0); NEUTROPHILS # 5.8 K/mm3 (1.8-7.7); NEUTROPHILS % 63.2 % (36.0-66.0); PLATELET COUNT, AUTOMATED 213 k/mm3 (150-450); WHITE BLOOD COUNT 9.2 K/mm3 (4.0-10.0)
[2017-05-19 18:00] VITALS: BP 111/68
[2017-05-19] MEDS: MIRTAZAPINE 15 MG TAB PO SCH (21:00)
[2017-05-19] MEDS: ARIPiprazole 10 MG TAB PO SCH (21:02)
[2017-05-20] MEDS: VENLAFAXINE **XR** 75MG CAPSULE PO SCH (07:57)
[2017-05-20] MEDS: ARIPiprazole 15 MG TAB (AbiLIFY) PO SCH (07:58)
[2017-05-20] MEDS: GABAPENTIN 300 MG CAP PO SCH ×3 (07:58→21:00)
[2017-05-20] MEDS: NICOTINE 21MG/24HR 1 EA TRANSDERMAL TD SCH (07:58)
[2017-05-20] MEDS: cloZAPine 25 MG TAB (S0136) PO SCH (07:58)
[2017-05-20] MEDS ORDERED: LORazepam 1 MG TAB PO STA (11:55)
[2017-05-20] MEDS ORDERED: HALOPERIDOL 10 MG TAB PO STA (11:57)
--- NOTE | 2017-05-20 13:31 | MHIPN ---
DATE: 05/19/2017 52-year-old male with a history of paranoid schizophrenia and major depressive disorder. SUBJECTIVE: Patient reported feeling "I'm okay." He refused to talk to this author after that brief statement. OBJECTIVE: Patient is alert, guarded, paranoid, with very poor eye contact and very poor social interactions. He does not interact with peers and almost does not allow interactions between him and staff. He remains isolated to his room, talking to himself, mumbling, responding to internal stimuli. Difficult to engage, denies suicidal thoughts and homicidal thoughts. His judgment and insight are very poor. ASSESSMENT: Patient has deteriorated, he is taking his medications, Abilify he did not take it on the but he has been taking it and Remeron he refused it last night, otherwise he has been taking it. Patient has a weak heart, he had an episode of atrial flutter and he had pneumonia. For that reason, he could not be kept on Clozaril because his white blood cell count was low and the cardiac complications do not allow to give him more antipsychotics other than the ones he is already taking. Based on recommendations from Norbert, we will try initiating patient on Clozaril again, but he might be taking off from this medication once again if he develops an infection. He agrees this morning to have his blood drawn and to start on Clozaril 25 mg. We will followup. edited: 05/21/2017 1120 tkf MTDD
[2017-05-20] MEDS: ARIPiprazole 10 MG TAB PO SCH (21:00)
[2017-05-20] MEDS: MIRTAZAPINE 15 MG TAB PO SCH (21:00)
[2017-05-20] MEDS ORDERED: HALOPERIDOL 5 MG TAB PO STA (22:50)
[2017-05-20] MEDS ORDERED: NICOTINE 21MG/24HR 1 EA TRANSDERMAL TD ONE (23:00)
[2017-05-20] MEDS: HALOPERIDOL 5 MG TAB PO PRN (23:06)
[2017-05-21] MEDS: HALOPERIDOL 5 MG TAB PO PRN (08:01)
[2017-05-21] MEDS: VENLAFAXINE **XR** 75MG CAPSULE PO SCH (08:02)
[2017-05-21] MEDS: GABAPENTIN 300 MG CAP PO SCH ×3 (08:02→21:44)
[2017-05-21] MEDS: cloZAPine 25 MG TAB (S0136) PO SCH (08:02)
[2017-05-21] MEDS: ARIPiprazole 15 MG TAB (AbiLIFY) PO SCH (08:03)
[2017-05-21] MEDS: NICOTINE 21MG/24HR 1 EA TRANSDERMAL TD SCH (08:03)
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
[2017-05-21] MEDS: MIRTAZAPINE 15 MG TAB PO SCH (21:00)
[2017-05-21] MEDS: ARIPiprazole 10 MG TAB PO SCH (21:44)
[2017-05-22] MEDS: cloZAPine 25 MG TAB (S0136) PO SCH (08:04)
[2017-05-22] MEDS: VENLAFAXINE **XR** 75MG CAPSULE PO SCH (08:04)
[2017-05-22] MEDS: GABAPENTIN 300 MG CAP PO SCH ×3 (08:04→20:58)
[2017-05-22] MEDS: NICOTINE 21MG/24HR 1 EA TRANSDERMAL TD SCH (08:04)
[2017-05-22] MEDS: ARIPiprazole 15 MG TAB (AbiLIFY) PO SCH (08:04)
--- NOTE | 2017-05-22 12:40 | MHIPN ---
DATE: 05/21/2017 52-year-old male with a history of: 1. Paranoid schizophrenia. 2. Major depressive disorder. The patient was reported calmer today, isolated to his room, less aggressive, less angry. SUBJECTIVE: The patient is alert, uncooperative and guarded. He seems to be very angry, only says "Good morning, Dr. Boucher" Covered his face and looks the other way. He is internally preoccupied. Mumbling and responding to internal stimuli. Staff reports that he has spent most of the afternoon isolated to his room. Staff reports too that this morning they found some pills when the moved the air conditioner to be cleaned. OBJECTIVE: The patient is uncooperative and guarded. His insight and judgment are still poor. His thought process and thought content are incoherent. He has poverty of speech. It was impossible to evaluate if he feels suicidal or homicidal because he would not answer any of my questions. He denies auditory and visual hallucinations by nodding with his head, but he is responding to internal stimuli. Therefore, this curriculum writer assumes that he is having auditory and visual hallucinations. ASSESSMENT: The patient probably has been spitting his pills or throwing them in the toilet and maybe for that reason he has decompensated for about three weeks. We will followup.
--- NOTE | 2017-05-22 14:59 | MHIPNPDOC ---
[facility] Progress Note Progress Note DATE OF SERVICE: 05/22/17 HISTORY: 52-year-old male with history of paranoid schizophrenia who has been at the inpatient mental health unit since 02/03/2017 and has been decompensated for approximately 3 weeks. Yesterday some pills were found in the air conditioner, while this was being serviced, this could explain his decompensation. Patient told clinical case manager and this sign writer letterer or painter this morning he wants to be referred to feel less in [place], he is "ready to get out of here". Then he proceeded to ask for his clothes, once again and he was told he shredded them, asked for his bathroom not being locked and he was told this issue needed to be discussed among staff members because he has been clogging the toilet. He said it was not him, he was a nurse's and other patients who had done this. VITAL SIGNS: See below. NEW TEST RESULTS: No new test results. CURRENT MEDICATIONS: See below. MENTAL STATUS EXAMINATION: Patient is a 52-year old male, who is alert, guarded, more cooperative, less angry and with better eye contact today. Speech: Is less tangential. Language skills are fair. Thought processes including: Tangential but more organized than previous days. Thought content: About being transferred to feel less, anxious, worried. Abstract reasoning, and computation: Unable to assess at this time. Description of associations: Less tangential. Description of abnormal or psychotic thoughts: Paranoid and persecutory delusions, irrational thoughts, response to internal stimuli. Denies suicidal and homicidal ideation. Judgment: Poor. Insight: Poor. Orientation: Oriented to place and person Recent and remote memory: Fair. Attention span and concentration: Easily distractible. Language: Fair. Fund of knowledge: Unable to assess at this time. Mood: Angry. Affect: Irritable, angry. DIAGNOSES: 1. Paranoid schizophrenia. 2. Major depressive disorder. ASSESSMENT: Patient has requested to be referred to [facility], clinical case manager was able to get some information from him to do the referral this afternoon.. Patient's seems to be doing better today, maybe he has been taking his medications, because yesterday some pills were found when the air conditioner was serviced, and this sign writer letterer or painter believes those might be some of the medications he should have been taking. Possibly he threw the other was in the toilet. Hopefully now that he is motivated to go to [facility] in [place] he'll be compliant with medications. We will follow up closely. MANAGEMENT PLAN: Will continue same medications, neck week Clozaril will be increased to 50 mg with previous CBC with differential. TIME SPENT: 30 minutes. Vital Signs Vital Signs Date Time Temp Pulse Resp B/P (MAP) Pulse Ox O2 Delivery O2 Flow Rate FiO2 05/19/17 18:00 99.2 113 16 111/68 (82) Current Medications Current Medications Acetaminophen (Tylenol Tab) 650 mg Q6HP PRN PO HEADACHE or DISCOMFORT Last administered on 04/11/17 06:17; Start 02/03/17 at 15:45; Stop 04/11/17 at 20:35 ; Status DC Acetaminophen (Tylenol Tab) 650 mg Q6HP PRN PO HEADACHE or DISCOMFORT; Start at 19:15; Stop 04/04/17 at 19:14; Status Cancel Acetaminophen (Tylenol Tab) 650 mg Q6HP PRN PO HEADACHE or DISCOMFORT; Start at 15:45; Stop 06/12/17 at 15:44 Al Hydrox/Mg Hydrox/Simethicone (Mylanta) 30 ml Q4HP PRN PO HEARTBURN/ INDIGESTION; Start 02/03/17 at 15:45; Stop 03/05/17 at 15:44; Status DC Al Hydrox/Mg Hydrox/Simethicone (Mylanta) 30 ml Q4HP PRN PO HEARTBURN/ INDIGESTION Last administered on 04/01/17 22:41; Start 03/05/17 at 19:30; Stop 04/11/17 at 20:35; Status DC Al Hydrox/Mg Hydrox/Simethicone (Mylanta) 30 ml Q4HP PRN PO HEARTBURN/ INDIGESTION; Start 03/06/17 at 10:00; Stop 04/04/17 at 09:59; Status Cancel Al Hydrox/Mg Hydrox/Simethicone (Mylanta) 30 ml Q4HP PRN PO HEARTBURN/ INDIGESTION Last administered on 04/14/17 23:36; Start 04/14/17 at 15:45; Stop 06/12/17 at 15:44 Aripiprazole (AbiLIFY) 2.5 mg QHS PO Last administered on 02/16/17 20:07; Start 02/07/17 at 21:00; Stop 02/17/17 at 12:25; Status DC Aripiprazole (AbiLIFY) 5 mg QHS PO Last administered on 02/23/17 21:06; Start 02/17/17 at 21:00; Stop 02/24/17 at 17:48; Status DC Aripiprazole (AbiLIFY) 7.5 mg BID PO Last administered on 02/25/17 08:02; Start 02/24/17 at 21:00; Stop 02/25/17 at 11:54; Status DC Aripiprazole (AbiLIFY) 7.5 mg QHS PO Last administered on 05/08/17 22:22; Start 05/04/17 at 21:00; Stop 05/09/17 at 08:15; Status DC Aripiprazole (AbiLIFY) 10 mg BID PO Last administered on 03/21/17 08:19; Start 03/18/17 at 21:00; Stop 03/21/17 at 16:03; Status DC Aripiprazole (AbiLIFY) 10 mg BID PO Last administered on 03/03/17 08:14; Start 02/25/17 at 21:00; Stop 03/03/17 at 10:13; Status DC Aripiprazole (AbiLIFY) 10 mg DAILY PO Last administered on 05/09/17 08:07; Start 05/02/17 at 09:00; Stop 05/09/17 at 08:13; Status DC Aripiprazole (AbiLIFY) 10 mg QHS PO Last administered on 05/21/17 21:44; Start 05/09/17 at 21:00; Stop 06/08/17 at 20:59 Aripiprazole (AbiLIFY) 15 mg BID PO Last administered on 03/08/17 08:08; Start 03/03/17 at 21:00; Stop 03/08/17 at 08:14; Status DC Aripiprazole (AbiLIFY) 15 mg BID PO ; Start 03/08/17 at 09:00; Stop 04/02/17 at 20:59; Status Cancel Aripiprazole (AbiLIFY) 15 mg BID PO Last administered on 03/10/17 08:03; Start 03/08/17 at 21:00; Stop 03/10/17 at 15:14; Status DC Aripiprazole (AbiLIFY) 15 mg BID PO Last administered on 03/18/17 08:37; Start 03/14/17 at 21:00; Stop 03/18/17 at 12:15; Status DC Aripiprazole (AbiLIFY) 15 mg BID PO Last administered on 03/25/17 08:05; Start 03/21/17 at 21:00; Stop 03/25/17 at 16:17; Status DC Aripiprazole (AbiLIFY) 15 mg DAILY PO Last administered on 05/22/17 08:04; Start 05/10/17 at 09:00; Stop 06/09/17 at 08:59 Aripiprazole (AbiLIFY) 20 mg BID PO Last administered on 03/14/17 08:05; Start 03/10/17 at 21:00; Stop 03/14/17 at 14:42; Status DC Aripiprazole (AbiLIFY) 20 mg BID PO ; Start 04/12/17 at 21:00; Stop 04/12/17 at 21:59; Status DC Aripiprazole (AbiLIFY) 20 mg BID PO Last administered on 04/30/17 22:00; Start 04/14/17 at 21:00; Stop 05/01/17 at 10:39; Status DC Aripiprazole (AbiLIFY) 20 mg BID PO Last administered on 04/11/17 07:48; Start 03/25/17 at 21:00; Stop 04/11/17 at 20:35; Status DC Aripiprazole (AbiLIFY) 20 mg DAILY PO ; Start 05/01/17 at 09:00; Stop 05/02/17 at 08:31; Status DC Aspirin (Aspirin Chewable) 81 mg DAILY PO Last administered on 04/12/17 19:58 ; Start 04/12/17 at 09:00; Stop 04/12/17 at 21:59; Status DC Aspirin (Aspirin) 325 mg DAILY PO ; Start 04/14/17 at 09:00; Stop 04/14/17 at 16 :11; Status DC Aspirin (Aspirin) 325 mg DAILY PO ; Start 04/15/17 at 09:00; Stop 04/15/17 at 09 :00; Status DC Benztropine Mesylate (Cogentin) 0.5 mg BID PO Last administered on 02/23/17 08: 43; Start 02/04/17 at 09:00; Stop 02/23/17 at 13:41; Status DC Benztropine Mesylate (Cogentin) 1 mg BID PO Last administered on 03/14/17 08: 05; Start 02/23/17 at 09:00; Stop 03/14/17 at 16:09; Status DC Benztropine Mesylate (Cogentin) 1 mg TID PO Last administered on 03/24/17 20:11 ; Start 03/14/17 at 21:00; Stop 03/25/17 at 08:59; Status DC Buspirone HCl (Buspar) 7.5 mg TID PO Last administered on 02/26/17 08:04; Start 02/04/17 at 16:00; Stop 02/26/17 at 12:48; Status DC Cefdinir (Omnicef) 300 mg BID PO ; Start 04/12/17 at 21:00; Stop 04/12/17 at 21: 59; Status DC Cefdinir (Omnicef) 300 mg BID PO Last administered on 05/05/17 08:06; Start at 21:00; Stop 05/05/17 at 11:28; Status DC Clozapine (Clozaril) 25 mg QAM PO Last administered on 05/22/17 08:04; Start at 09:00; Stop 05/26/17 at 08:59 Clozapine (Clozaril) 25 mg QHS PO Last administered on 03/20/17 21:41; Start at 21:00; Stop 03/21/17 at 08:59; Status DC Clozapine (Clozaril) 50 mg QAM PO Last administered on 03/18/17 08:37; Start 03/14/17 at 09:00; Stop 03/18/17 at 21:20; Status DC Clozapine (Clozaril) 50 mg QHS PO Last administered on 03/25/17 22:42; Start at 21:00; Stop 03/27/17 at 13:55; Status DC Clozapine (Clozaril) 75 mg QHS PO Last administered on 04/09/17 20:17; Start 03/27/17 at 21:00; Stop 04/10/17 at 14:36; Status DC Clozapine (Clozaril) 100 mg QHS PO Last administered on 04/09/17 20:17; Start 04/03/17 at 21:00; Stop 04/10/17 at 14:34; Status DC Clozapine (Clozaril) 150 mg QHS PO ; Start 04/10/17 at 21:00; Stop 04/17/17 at 20:59; Status Cancel Clozapine (Clozaril) 150 mg QHS PO ; Start 04/11/17 at 21:00; Stop 04/11/17 at 21:00; Status Cancel Clozapine (Clozaril) 200 mg QHS PO Last administered on 04/10/17 20:03; Start 04/10/17 at 21:00; Stop 04/11/17 at 11:18; Status DC Diphenhydramine HCl (Benadryl) 50 mg STAT STAT IM ; Start 04/12/17 at 17:45; Stop 04/12/17 at 17:47; Status DC Diphenhydramine HCl (Benadryl) 50 mg STAT STAT PO Last administered on 13:04; Start 04/12/17 at 12:41; Stop 04/12/17 at 12:42; Status DC Diphenhydramine HCl (Benadryl) 50 mg STAT STAT PO Last administered on 17:51; Start 04/12/17 at 17:43; Stop 04/12/17 at 17:45; Status DC Docusate Sodium (Colace) 100 mg BID PO Last administered on 04/11/17 07:48; Start 02/03/17 at 21:00; Stop 04/11/17 at 20:35; Status DC Gabapentin (Neurontin) 100 mg QAM PO Last administered on 02/24/17 08:14; Start 02/04/17 at 09:00; Stop 02/24/17 at 17:59; Status DC Gabapentin (Neurontin) 200 mg QAM PO Last administered on 03/19/17 08:04; Start 02/25/17 at 09:00; Stop 03/19/17 at 11:00; Status DC Gabapentin (Neurontin) 300 mg QHS PO Last administered on 04/10/17 20:03; Start 03/21/17 at 21:00; Stop 04/11/17 at 20:35; Status DC Gabapentin (Neurontin) 300 mg QHS PO ; Start 04/12/17 at 21:00; Stop 04/12/17 at 21:59; Status DC Gabapentin (Neurontin) 300 mg QHS PO Last administered on 04/30/17 22:00; Start 04/14/17 at 21:00; Stop 05/01/17 at 10:36; Status DC Gabapentin (Neurontin) 300 mg TID PO ; Start 03/21/17 at 21:00; Stop 03/21/17 at 21:00; Status DC Gabapentin (Neurontin) 300 mg TID PO Last administered on 05/22/17 08:04; Start 05/08/17 at 21:00; Stop 06/07/17 at 20:59 Gabapentin (Neurontin) 400 mg QHS PO Last administered on 03/18/17 20:56; Start 02/04/17 at 21:00; Stop 03/19/17 at 11:00; Status DC Gabapentin (Neurontin) 600 mg BID PO ; Start 04/14/17 at 21:00; Stop 04/14/17 at 21:00; Status DC Gabapentin (Neurontin) 600 mg BID@0900,1600 PO Last administered on 04/11/17 07:48; Start 03/21/17 at 16:00; Stop 04/11/17 at 20:35; Status DC Gabapentin (Neurontin) 600 mg BID@0900,1600 PO Last administered on 04/12/17 14:54; Start 04/12/17 at 16:00; Stop 04/12/17 at 21:59; Status DC Gabapentin (Neurontin) 600 mg BID@0900,1600 PO Last administered on 04/30/17 15:40; Start 04/14/17 at 16:00; Stop 05/01/17 at 10:36; Status DC Haloperidol (Haldol) 5 mg STAT STAT IM ; Start 05/07/17 at 20:27; Stop at 20:28; Status DC Haloperidol (Haldol) 5 mg STAT STAT PO ; Start 05/20/17 at 22:50; Stop 05/20/17 at 22:52; Status DC Haloperidol (Haldol) 10 mg Q8HP PRN PO ANXIETY/AGITATION Last administered on 08:01; Start 04/14/17 at 15:45; Stop 06/12/17 at 15:44 Haloperidol (Haldol) 10 mg STAT STAT IM ; Start 04/12/17 at 17:45; Stop at 17:47; Status DC Haloperidol (Haldol) 10 mg STAT STAT PO Last administered on 04/12/17 13:04; Start 04/12/17 at 12:40; Stop 04/12/17 at 12:42; Status DC Haloperidol (Haldol) 10 mg STAT STAT PO Last administered on 04/12/17 17:51; Start 04/12/17 at 17:43; Stop 04/12/17 at 17:45; Status DC Haloperidol (Haldol) 10 mg STAT STAT PO Last administered on 05/20/17 12:01; Start 05/20/17 at 11:57; Stop 05/20/17 at 11:58; Status DC Haloperidol Decanoate (Haldol Decanoate) 50 mg Q14D IM Last administered on 09:07; Start 04/15/17 at 09:00; Stop 05/01/17 at 09:32; Status DC Haloperidol Decanoate (Haldol Decanoate) 50 mg Q14D STAT IM ; Start 02/18/17 at 20:24; Stop 02/18/17 at 20:25; Status Cancel Haloperidol Decanoate (Haldol Decanoate) 50 mg Q14D@0900 IM Last administered on 04/01/17 10:33; Start 03/18/17 at 09:00; Stop 04/11/17 at 20:35; Status DC Haloperidol Decanoate (Haldol Decanoate) 50 mg Q14D@14 IM Last administered on 03/04/17 13:27; Start 02/04/17 at 14:00; Stop 03/06/17 at 13:59; Status DC Haloperidol Decanoate (Haldol Decanoate) 75 mg Q14D IM ; Start 05/13/17 at 09:00 ; Stop 06/12/17 at 08:59; Status Cancel Home Med (Med Rec Complete!) ASDIRECTED XX ; Start 02/03/17 at 12:15; Stop at 12:15; Status DC Lorazepam (Ativan) 1 mg Q6HP PRN PO ANXIETY; Start 04/12/17 at 14:30; Stop at 21:59; Status DC Lorazepam (Ativan) 1 mg Q8H PRN PO anxiety/agitation Last administered on 20:41; Start 05/02/17 at 14:00; Stop 05/10/17 at 11:38; Status DC Lorazepam (Ativan) 1 mg Q8H PRN PO anxiety/agitation Last administered on 11:57; Start 05/10/17 at 11:38; Stop 05/28/17 at 11:37 Lorazepam (Ativan) 1 mg Q8HP PRN PO ANXIETY/AGITATION Last administered on 20:52; Start 02/03/17 at 15:45; Stop 02/26/17 at 12:48; Status DC Lorazepam (Ativan) 1 mg STAT STAT IM ; Start 05/07/17 at 20:27; Stop 05/07/17 at 20:28; Status DC Lorazepam (Ativan) 1 mg STAT STAT PO Last administered on 04/12/17 13:04; Start 04/12/17 at 12:42; Stop 04/12/17 at 12:44; Status DC Lorazepam (Ativan) 1 mg TID PO Last administered on 03/19/17 08:04; Start 08/05 at 16:00; Stop 03/19/17 at 11:02; Status DC Lorazepam (Ativan) 1 mg TID PO Last administered on 03/26/17 08:06; Start at 21:00; Stop 03/26/17 at 11:14; Status DC Lorazepam (Ativan) 1 mg TID PRN PO Anxiety Last administered on 03/19/17 16:11 ; Start 03/19/17 at 11:15; Stop 03/21/17 at 16:07; Status DC Lorazepam (Ativan) 2 mg Q8H PO Last administered on 7/13/17at 20:51; Start at 22:00; Stop 05/02/17 at 08:29; Status DC Lorazepam (Ativan) 2 mg STAT STAT IM ; Start 04/12/17 at 17:45; Stop 04/12/17 at 17:47; Status DC Lorazepam (Ativan) 2 mg STAT STAT PO Last administered on 04/12/17 17:51; Start 04/12/17 at 17:43; Stop 04/12/17 at 17:45; Status DC Lorazepam (Ativan) 2 mg STAT STAT PO Last administered on 05/15/17 14:26; Start 05/15/17 at 14:17; Stop 05/15/17 at 14:19; Status DC Lorazepam (Ativan) 4 mg Q8HP PRN PO ANXIETY AGITATION Last administered on 05/01 15:39; Start 04/14/17 at 16:00; Stop 05/01/17 at 16:00; Status DC Lorazepam (Ativan) 4 mg STAT STAT PO Last administered on 05/20/17 12:01; Start 05/20/17 at 11:55; Stop 05/20/17 at 11:58; Status DC Magnesium Hydroxide (Milk Of Magnesia) 30 ml DAILYPRN PRN PO CONSTIPATION; Start 02/03/17 at 15:45; Stop 03/05/17 at 15:44; Status DC Magnesium Hydroxide (Milk Of Magnesia) 30 ml DAILYPRN PRN PO CONSTIPATION Last administered on 03/24/17 15:50; Start 03/05/17 at 19:15; Stop 04/11/17 at 20:35 ; Status DC Magnesium Hydroxide (Milk Of Magnesia) 30 ml DAILYPRN PRN PO CONSTIPATION; Start 04/14/17 at 15:45; Stop 06/12/17 at 15:44 Metoprolol Tartrate (Lopressor) 25 mg BID PO Last administered on 04/12/17 19: 43; Start 04/12/17 at 21:00; Stop 04/12/17 at 21:59; Status DC Metoprolol Tartrate (Lopressor) 25 mg BID PO Last administered on 05/14/17 08: 08; Start 04/14/17 at 21:00; Stop 05/14/17 at 20:59; Status DC Mirtazapine (Remeron) 15 mg QHS PO Last administered on 02/27/17 21:37; Start 02/04/17 at 21:00; Stop 02/28/17 at 09:19; Status DC Mirtazapine (Remeron) 30 mg QHS PO Last administered on 03/18/17 20:56; Start 02/28/17 at 21:00; Stop 03/19/17 at 11:02; Status DC Mirtazapine (Remeron) 30 mg QHS PO Last administered on 05/16/17 22:37; Start 05/16/17 at 21:00; Stop 06/15/17 at 20:59 Mirtazapine (Remeron) 30 mg QHS PO Last administered on 04/28/17 22:50; Start 04/21/17 at 21:00; Stop 05/01/17 at 11:06; Status DC Mirtazapine (Remeron) 30 mg QHS PRN PO Insomnia; Start 03/19/17 at 11:15; Stop 03/21/17 at 16:05; Status DC Mirtazapine (Remeron) 45 mg QHS PO ; Start 04/12/17 at 21:00; Stop 04/12/17 at 21:59; Status DC Mirtazapine (Remeron) 45 mg QHS PO Last administered on 04/20/17 20:46; Start 04/14/17 at 21:00; Stop 04/21/17 at 14:45; Status DC Mirtazapine (Remeron) 45 mg QHSP PRN PO Insomnia Last administered on 20:35; Start 03/21/17 at 16:15; Stop 04/11/17 at 20:35; Status DC Miscellaneous (Unresolved Clarification Entry) SEE LABEL COMMENTS UNRESOLVED XX ; Start 03/07/17 at 00:01; Stop 03/10/17 at 15:08; Status DC Nicotine (Nicoderm Cq 14mg) 1 patch DAILY TD Last administered on 05/01/17 07: 30; Start 04/15/17 at 09:00; Stop 05/01/17 at 16:48; Status DC Nicotine (Nicoderm Cq 21mg) 1 patch DAILY TD Last administered on 04/11/17 07: 49; Start 02/04/17 at 09:00; Stop 04/11/17 at 20:35; Status DC Nicotine (Nicoderm Cq 21mg) 1 patch DAILY TD Last administered on 04/12/17 14: 54; Start 04/12/17 at 09:00; Stop 04/12/17 at 21:59; Status DC Nicotine (Nicoderm Cq 21mg) 1 patch DAILY TD Last administered on 05/22/17 08: 04; Start 05/01/17 at 09:00; Stop 05/31/17 at 08:59 Olanzapine (ZyPREXA) 10 mg DAILY PO Last administered on 02/04/17 08:59; Start 02/03/17 at 09:00; Stop 02/04/17 at 14:20; Status DC Paliperidone (Invega) 6 mg QHS PO Last administered on 05/01/17 20:52; Start 05/01/17 at 21:00; Stop 05/05/17 at 13:45; Status DC Paliperidone Palmitate (Invega Sustenna) 234 mg Q30D IM Last administered on 15:52; Start 05/06/17 at 09:00; Stop 06/05/17 at 08:59 Quetiapine Fumarate (SEROquel) 200 mg QHS PO ; Start 02/04/17 at 21:00; Stop at 13:42; Status DC Ramelteon (Rozerem) 8 mg QHS PO Last administered on 05/14/17 22:30; Start at 21:00; Stop 05/16/17 at 17:31; Status DC Trazodone HCl (Desyrel) 50 mg QHSP PRN PO INSOMNIA; Start 02/03/17 at 16:45; Stop 03/05/17 at 16:44; Status Cancel Trazodone HCl (Desyrel) 50 mg QHSP PRN PO INSOMNIA Last administered on 21:49; Start 02/28/17 at 12:45; Stop 03/10/17 at 15:11; Status DC Venlafaxine HCl (Effexor Xr) 75 mg DAILY PO Last administered on 02/06/17 08:28; Start 02/04/17 at 09:00; Stop 02/06/17 at 18:02; Status DC Venlafaxine HCl (Effexor Xr) 150 mg BID PO Last administered on 04/11/17 07:48; Start 03/07/17 at 09:00; Stop 04/11/17 at 20:35; Status DC Venlafaxine HCl (Effexor Xr) 150 mg BID PO ; Start 04/12/17 at 21:00; Stop 04/12/17 at 21:59; Status DC Venlafaxine HCl (Effexor Xr) 150 mg QHS PO Last administered on 02/23/17 21 :05; Start 02/07/17 at 21:00; Stop 02/24/17 at 17:59; Status DC Venlafaxine HCl (Effexor Xr) 300 mg DAILY PO Last administered on 05/22/17 08:04; Start 05/15/17 at 09:00; Stop 06/14/17 at 08:59 Venlafaxine HCl (Effexor) 150 mg BID PO Last administered on 03/06/17 20:04; Start 02/24/17 at 21:00; Stop 03/06/17 at 23:26; Status DC Venlafaxine HCl (Effexor) 150 mg BID PO Last administered on 05/14/17 08:07; Start 04/14/17 at 21:00; Stop 05/14/17 at 20:30; Status DC Allergies Coded Allergies: Loxapine (Verified Allergy, Mild, 01/21/13) Thiothixene (Verified Allergy, Mild, 01/21/13) Fluphenazine (Verified Allergy, Unknown, 09/12/15) UNKNOWN [place] (Verified Allergy, Unknown, UNKNOWN, 09/12/15) Meperidine (Verified Allergy, Unknown, UNKNOWN, 09/12/15) Phenothiazines (Verified Allergy, Unknown, UNKNOWN, 09/12/15) Thioridazine (Verified Allergy, Unknown, UNKNOWN, 09/12/15) KELVIN GARIBAY MD May 22, 2017 14:59
[2017-05-22] MEDS: MIRTAZAPINE 15 MG TAB PO SCH (20:58)
[2017-05-22] MEDS: ARIPiprazole 10 MG TAB PO SCH (20:58)
[2017-05-23] MEDS: NICOTINE 21MG/24HR 1 EA TRANSDERMAL TD SCH (08:00)
[2017-05-23] MEDS: ARIPiprazole 15 MG TAB (AbiLIFY) PO SCH (08:00)
[2017-05-23] MEDS: cloZAPine 25 MG TAB (S0136) PO SCH (08:00)
[2017-05-23] MEDS: GABAPENTIN 300 MG CAP PO SCH ×3 (08:00→21:14)
[2017-05-23] MEDS: VENLAFAXINE **XR** 75MG CAPSULE PO SCH (08:01)
--- NOTE | 2017-05-23 15:43 | MHIPNPDOC ---
[facility] Progress Note Progress Note DATE OF SERVICE: 05/23/17 HISTORY: 52-year-old male with history of paranoid schizophrenia, who has been decompensated for approximately 3-1/2 weeks, has been having bizarre behavior besides these paranoid delusions. Several pills were found in the air conditioner and his bathroom has been locked because he was clogging it. Possibly he was throwing his bills in the toilet as he was doing with the air conditioner. Since he hasn't had a place to throw them away, probably has been taking that and that can explain improvements during the last 48 hours. Patient has been more lucid, more coherent, cooperative, less paranoid and has requested to go to [facility] in [place]. grain manager is working on his case and has sent the referral to [facility]. VITAL SIGNS: See below. NEW TEST RESULTS: None. CURRENT MEDICATIONS: See below. MENTAL STATUS EXAMINATION: Patient is a 52-year old male, who is alert, more cooperative, less guarded, less paranoid. Speech: Is More coherent. Language skills are Normal. Thought processes including: irrational. Thought content: Not coherent. Abstract reasoning, and computation: Limited. Description of associations: Loose. Description of abnormal or psychotic thoughts: Paranoid, persecutory delusions but less frequent. Judgment: Limited. Insight: Limited. Orientation: Oriented to place and person. Recent and remote memory: Limited. Attention span and concentration: Easily distractible.. Language: Thought blocking. Fund of knowledge: Unable to asses at this time, patient is still psychotic. Mood: slightly irritable. Affect: congruent to mood. DIAGNOSES: 1. Paranoid schizophrenia, chronic. 2. major Depressive disorder. ASSESSMENT:Patient has had some improvement over the last 48 hours. Patient apparently was throwing his pills in the AC and in the toilet. The bathroom is locked for him and he knows we know about the pills in the AC. He was started on clozaril on Friday, and although the dose is very low, 25 mgs, he has improved. MANAGEMENT PLAN: Will continue on same medications, Parliamentary Librarian has sent the referral to [facility], awaiting their response. Patient has been told he has to comply with medications in order to be transferred. He is motivated to go, so, probably he will comply TIME SPENT: 30 minutes. Vital Signs Vital Signs Date Time Temp Pulse Resp B/P (MAP) Pulse Ox O2 Delivery O2 Flow Rate FiO2 05/19/17 18:00 99.2 113 16 111/68 (82) Current Medications Current Medications Acetaminophen (Tylenol Tab) 650 mg Q6HP PRN PO HEADACHE or DISCOMFORT Last administered on 04/11/17 06:17; Start 02/03/17 at 15:45; Stop 04/11/17 at 20:35 ; Status DC Acetaminophen (Tylenol Tab) 650 mg Q6HP PRN PO HEADACHE or DISCOMFORT; Start at 19:15; Stop 04/04/17 at 19:14; Status Cancel Acetaminophen (Tylenol Tab) 650 mg Q6HP PRN PO HEADACHE or DISCOMFORT; Start at 15:45; Stop 06/12/17 at 15:44 Al Hydrox/Mg Hydrox/Simethicone (Mylanta) 30 ml Q4HP PRN PO HEARTBURN/ INDIGESTION; Start 02/03/17 at 15:45; Stop 03/05/17 at 15:44; Status DC Al Hydrox/Mg Hydrox/Simethicone (Mylanta) 30 ml Q4HP PRN PO HEARTBURN/ INDIGESTION Last administered on 04/01/17 22:41; Start 03/05/17 at 19:30; Stop 04/11/17 at 20:35; Status DC Al Hydrox/Mg Hydrox/Simethicone (Mylanta) 30 ml Q4HP PRN PO HEARTBURN/ INDIGESTION; Start 03/06/17 at 10:00; Stop 04/04/17 at 09:59; Status Cancel Al Hydrox/Mg Hydrox/Simethicone (Mylanta) 30 ml Q4HP PRN PO HEARTBURN/ INDIGESTION Last administered on 04/14/17 23:36; Start 04/14/17 at 15:45; Stop 06/12/17 at 15:44 Aripiprazole (AbiLIFY) 2.5 mg QHS PO Last administered on 02/16/17 20:07; Start 02/07/17 at 21:00; Stop 02/17/17 at 12:25; Status DC Aripiprazole (AbiLIFY) 5 mg QHS PO Last administered on 02/23/17 21:06; Start 02/17/17 at 21:00; Stop 02/24/17 at 17:48; Status DC Aripiprazole (AbiLIFY) 7.5 mg BID PO Last administered on 02/25/17 08:02; Start 02/24/17 at 21:00; Stop 02/25/17 at 11:54; Status DC Aripiprazole (AbiLIFY) 7.5 mg QHS PO Last administered on 05/08/17 22:22; Start 05/04/17 at 21:00; Stop 05/09/17 at 08:15; Status DC Aripiprazole (AbiLIFY) 10 mg BID PO Last administered on 03/21/17 08:19; Start 03/18/17 at 21:00; Stop 03/21/17 at 16:03; Status DC Aripiprazole (AbiLIFY) 10 mg BID PO Last administered on 03/03/17 08:14; Start 02/25/17 at 21:00; Stop 03/03/17 at 10:13; Status DC Aripiprazole (AbiLIFY) 10 mg DAILY PO Last administered on 05/09/17 08:07; Start 05/02/17 at 09:00; Stop 05/09/17 at 08:13; Status DC Aripiprazole (AbiLIFY) 10 mg QHS PO Last administered on 05/22/17 20:58; Start 05/09/17 at 21:00; Stop 06/08/17 at 20:59 Aripiprazole (AbiLIFY) 15 mg BID PO Last administered on 03/08/17 08:08; Start 03/03/17 at 21:00; Stop 03/08/17 at 08:14; Status DC Aripiprazole (AbiLIFY) 15 mg BID PO ; Start 03/08/17 at 09:00; Stop 04/02/17 at 20:59; Status Cancel Aripiprazole (AbiLIFY) 15 mg BID PO Last administered on 03/10/17 08:03; Start 03/08/17 at 21:00; Stop 03/10/17 at 15:14; Status DC Aripiprazole (AbiLIFY) 15 mg BID PO Last administered on 03/18/17 08:37; Start 03/14/17 at 21:00; Stop 03/18/17 at 12:15; Status DC Aripiprazole (AbiLIFY) 15 mg BID PO Last administered on 03/25/17 08:05; Start 03/21/17 at 21:00; Stop 03/25/17 at 16:17; Status DC Aripiprazole (AbiLIFY) 15 mg DAILY PO Last administered on 05/23/17 08:00; Start 05/10/17 at 09:00; Stop 06/09/17 at 08:59 Aripiprazole (AbiLIFY) 20 mg BID PO Last administered on 03/14/17 08:05; Start 03/10/17 at 21:00; Stop 03/14/17 at 14:42; Status DC Aripiprazole (AbiLIFY) 20 mg BID PO ; Start 04/12/17 at 21:00; Stop 04/12/17 at 21:59; Status DC Aripiprazole (AbiLIFY) 20 mg BID PO Last administered on 04/30/17 22:00; Start 04/14/17 at 21:00; Stop 05/01/17 at 10:39; Status DC Aripiprazole (AbiLIFY) 20 mg BID PO Last administered on 04/11/17 07:48; Start 03/25/17 at 21:00; Stop 04/11/17 at 20:35; Status DC Aripiprazole (AbiLIFY) 20 mg DAILY PO ; Start 05/01/17 at 09:00; Stop 05/02/17 at 08:31; Status DC Aspirin (Aspirin Chewable) 81 mg DAILY PO Last administered on 04/12/17 19:58 ; Start 04/12/17 at 09:00; Stop 04/12/17 at 21:59; Status DC Aspirin (Aspirin) 325 mg DAILY PO ; Start 04/14/17 at 09:00; Stop 04/14/17 at 16 :11; Status DC Aspirin (Aspirin) 325 mg DAILY PO ; Start 04/15/17 at 09:00; Stop 04/15/17 at 09 :00; Status DC Benztropine Mesylate (Cogentin) 0.5 mg BID PO Last administered on 02/23/17 08: 43; Start 02/04/17 at 09:00; Stop 02/23/17 at 13:41; Status DC Benztropine Mesylate (Cogentin) 1 mg BID PO Last administered on 03/14/17 08: 05; Start 02/23/17 at 09:00; Stop 03/14/17 at 16:09; Status DC Benztropine Mesylate (Cogentin) 1 mg TID PO Last administered on 03/24/17 20:11 ; Start 03/14/17 at 21:00; Stop 03/25/17 at 08:59; Status DC Buspirone HCl (Buspar) 7.5 mg TID PO Last administered on 02/26/17 08:04; Start 02/04/17 at 16:00; Stop 02/26/17 at 12:48; Status DC Cefdinir (Omnicef) 300 mg BID PO ; Start 04/12/17 at 21:00; Stop 04/12/17 at 21: 59; Status DC Cefdinir (Omnicef) 300 mg BID PO Last administered on 05/05/17 08:06; Start at 21:00; Stop 05/05/17 at 11:28; Status DC Clozapine (Clozaril) 25 mg QAM PO Last administered on 05/23/17 08:00; Start at 09:00; Stop 05/26/17 at 08:59 Clozapine (Clozaril) 25 mg QHS PO Last administered on 03/20/17 21:41; Start at 21:00; Stop 03/21/17 at 08:59; Status DC Clozapine (Clozaril) 50 mg QAM PO Last administered on 03/18/17 08:37; Start 03/14/17 at 09:00; Stop 03/18/17 at 21:20; Status DC Clozapine (Clozaril) 50 mg QHS PO Last administered on 03/25/17 22:42; Start at 21:00; Stop 03/27/17 at 13:55; Status DC Clozapine (Clozaril) 75 mg QHS PO Last administered on 04/09/17 20:17; Start 03/27/17 at 21:00; Stop 04/10/17 at 14:36; Status DC Clozapine (Clozaril) 100 mg QHS PO Last administered on 04/09/17 20:17; Start 04/03/17 at 21:00; Stop 04/10/17 at 14:34; Status DC Clozapine (Clozaril) 150 mg QHS PO ; Start 04/10/17 at 21:00; Stop 04/17/17 at 20:59; Status Cancel Clozapine (Clozaril) 150 mg QHS PO ; Start 04/11/17 at 21:00; Stop 04/11/17 at 21:00; Status Cancel Clozapine (Clozaril) 200 mg QHS PO Last administered on 04/10/17 20:03; Start 04/10/17 at 21:00; Stop 04/11/17 at 11:18; Status DC Diphenhydramine HCl (Benadryl) 50 mg STAT STAT IM ; Start 04/12/17 at 17:45; Stop 04/12/17 at 17:47; Status DC Diphenhydramine HCl (Benadryl) 50 mg STAT STAT PO Last administered on 13:04; Start 04/12/17 at 12:41; Stop 04/12/17 at 12:42; Status DC Diphenhydramine HCl (Benadryl) 50 mg STAT STAT PO Last administered on 17:51; Start 04/12/17 at 17:43; Stop 04/12/17 at 17:45; Status DC Docusate Sodium (Colace) 100 mg BID PO Last administered on 04/11/17 07:48; Start 02/03/17 at 21:00; Stop 04/11/17 at 20:35; Status DC Gabapentin (Neurontin) 100 mg QAM PO Last administered on 02/24/17 08:14; Start 02/04/17 at 09:00; Stop 02/24/17 at 17:59; Status DC Gabapentin (Neurontin) 200 mg QAM PO Last administered on 03/19/17 08:04; Start 02/25/17 at 09:00; Stop 03/19/17 at 11:00; Status DC Gabapentin (Neurontin) 300 mg QHS PO Last administered on 04/10/17 20:03; Start 03/21/17 at 21:00; Stop 04/11/17 at 20:35; Status DC Gabapentin (Neurontin) 300 mg QHS PO ; Start 04/12/17 at 21:00; Stop 04/12/17 at 21:59; Status DC Gabapentin (Neurontin) 300 mg QHS PO Last administered on 04/30/17 22:00; Start 04/14/17 at 21:00; Stop 05/01/17 at 10:36; Status DC Gabapentin (Neurontin) 300 mg TID PO ; Start 03/21/17 at 21:00; Stop 03/21/17 at 21:00; Status DC Gabapentin (Neurontin) 300 mg TID PO Last administered on 05/23/17 08:00; Start 05/08/17 at 21:00; Stop 06/07/17 at 20:59 Gabapentin (Neurontin) 400 mg QHS PO Last administered on 03/18/17 20:56; Start 02/04/17 at 21:00; Stop 03/19/17 at 11:00; Status DC Gabapentin (Neurontin) 600 mg BID PO ; Start 04/14/17 at 21:00; Stop 04/14/17 at 21:00; Status DC Gabapentin (Neurontin) 600 mg BID@0900,1600 PO Last administered on 04/11/17 07:48; Start 03/21/17 at 16:00; Stop 04/11/17 at 20:35; Status DC Gabapentin (Neurontin) 600 mg BID@0900,1600 PO Last administered on 04/12/17 14:54; Start 04/12/17 at 16:00; Stop 04/12/17 at 21:59; Status DC Gabapentin (Neurontin) 600 mg BID@0900,1600 PO Last administered on 04/30/17 15:40; Start 04/14/17 at 16:00; Stop 05/01/17 at 10:36; Status DC Haloperidol (Haldol) 5 mg STAT STAT IM ; Start 05/07/17 at 20:27; Stop at 20:28; Status DC Haloperidol (Haldol) 5 mg STAT STAT PO ; Start 05/20/17 at 22:50; Stop 05/20/17 at 22:52; Status DC Haloperidol (Haldol) 10 mg Q8HP PRN PO ANXIETY/AGITATION Last administered on 08:01; Start 04/14/17 at 15:45; Stop 06/12/17 at 15:44 Haloperidol (Haldol) 10 mg STAT STAT IM ; Start 04/12/17 at 17:45; Stop at 17:47; Status DC Haloperidol (Haldol) 10 mg STAT STAT PO Last administered on 04/12/17 13:04; Start 04/12/17 at 12:40; Stop 04/12/17 at 12:42; Status DC Haloperidol (Haldol) 10 mg STAT STAT PO Last administered on 04/12/17 17:51; Start 04/12/17 at 17:43; Stop 04/12/17 at 17:45; Status DC Haloperidol (Haldol) 10 mg STAT STAT PO Last administered on 05/20/17 12:01; Start 05/20/17 at 11:57; Stop 05/20/17 at 11:58; Status DC Haloperidol Decanoate (Haldol Decanoate) 50 mg Q14D IM Last administered on 09:07; Start 04/15/17 at 09:00; Stop 05/01/17 at 09:32; Status DC Haloperidol Decanoate (Haldol Decanoate) 50 mg Q14D STAT IM ; Start 02/18/17 at 20:24; Stop 02/18/17 at 20:25; Status Cancel Haloperidol Decanoate (Haldol Decanoate) 50 mg Q14D@0900 IM Last administered on 04/01/17 10:33; Start 03/18/17 at 09:00; Stop 04/11/17 at 20:35; Status DC Haloperidol Decanoate (Haldol Decanoate) 50 mg Q14D@14 IM Last administered on 03/04/17 13:27; Start 02/04/17 at 14:00; Stop 03/06/17 at 13:59; Status DC Haloperidol Decanoate (Haldol Decanoate) 75 mg Q14D IM ; Start 05/13/17 at 09:00 ; Stop 06/12/17 at 08:59; Status Cancel Home Med (Med Rec Complete!) ASDIRECTED XX ; Start 02/03/17 at 12:15; Stop at 12:15; Status DC Lorazepam (Ativan) 1 mg Q6HP PRN PO ANXIETY; Start 04/12/17 at 14:30; Stop at 21:59; Status DC Lorazepam (Ativan) 1 mg Q8H PRN PO anxiety/agitation Last administered on 20:41; Start 05/02/17 at 14:00; Stop 05/10/17 at 11:38; Status DC Lorazepam (Ativan) 1 mg Q8H PRN PO anxiety/agitation Last administered on 11:57; Start 05/10/17 at 11:38; Stop 05/28/17 at 11:37 Lorazepam (Ativan) 1 mg Q8HP PRN PO ANXIETY/AGITATION Last administered on 20:52; Start 02/03/17 at 15:45; Stop 02/26/17 at 12:48; Status DC Lorazepam (Ativan) 1 mg STAT STAT IM ; Start 05/07/17 at 20:27; Stop 05/07/17 at 20:28; Status DC Lorazepam (Ativan) 1 mg STAT STAT PO Last administered on 04/12/17 13:04; Start 04/12/17 at 12:42; Stop 04/12/17 at 12:44; Status DC Lorazepam (Ativan) 1 mg TID PO Last administered on 03/19/17 08:04; Start 08/05 at 16:00; Stop 03/19/17 at 11:02; Status DC Lorazepam (Ativan) 1 mg TID PO Last administered on 03/26/17 08:06; Start at 21:00; Stop 03/26/17 at 11:14; Status DC Lorazepam (Ativan) 1 mg TID PRN PO Anxiety Last administered on 03/19/17 16:11 ; Start 03/19/17 at 11:15; Stop 03/21/17 at 16:07; Status DC Lorazepam (Ativan) 2 mg Q8H PO Last administered on 05/01/17 20:51; Start at 22:00; Stop 05/02/17 at 08:29; Status DC Lorazepam (Ativan) 2 mg STAT STAT IM ; Start 04/12/17 at 17:45; Stop 04/12/17 at 17:47; Status DC Lorazepam (Ativan) 2 mg STAT STAT PO Last administered on 04/12/17 17:51; Start 04/12/17 at 17:43; Stop 04/12/17 at 17:45; Status DC Lorazepam (Ativan) 2 mg STAT STAT PO Last administered on 05/15/17 14:26; Start 05/15/17 at 14:17; Stop 05/15/17 at 14:19; Status DC Lorazepam (Ativan) 4 mg Q8HP PRN PO ANXIETY AGITATION Last administered on 05/01 15:39; Start 04/14/17 at 16:00; Stop 05/01/17 at 16:00; Status DC Lorazepam (Ativan) 4 mg STAT STAT PO Last administered on 05/20/17 12:01; Start 05/20/17 at 11:55; Stop 05/20/17 at 11:58; Status DC Magnesium Hydroxide (Milk Of Magnesia) 30 ml DAILYPRN PRN PO CONSTIPATION; Start 02/03/17 at 15:45; Stop 03/05/17 at 15:44; Status DC Magnesium Hydroxide (Milk Of Magnesia) 30 ml DAILYPRN PRN PO CONSTIPATION Last administered on 03/24/17 15:50; Start 03/05/17 at 19:15; Stop 04/11/17 at 20:35 ; Status DC Magnesium Hydroxide (Milk Of Magnesia) 30 ml DAILYPRN PRN PO CONSTIPATION; Start 04/14/17 at 15:45; Stop 06/12/17 at 15:44 Metoprolol Tartrate (Lopressor) 25 mg BID PO Last administered on 04/12/17 19: 43; Start 04/12/17 at 21:00; Stop 04/12/17 at 21:59; Status DC Metoprolol Tartrate (Lopressor) 25 mg BID PO Last administered on 05/14/17 08: 08; Start 04/14/17 at 21:00; Stop 05/14/17 at 20:59; Status DC Mirtazapine (Remeron) 15 mg QHS PO Last administered on 02/27/17 21:37; Start 02/04/17 at 21:00; Stop 02/28/17 at 09:19; Status DC Mirtazapine (Remeron) 30 mg QHS PO Last administered on 03/18/17 20:56; Start 02/28/17 at 21:00; Stop 03/19/17 at 11:02; Status DC Mirtazapine (Remeron) 30 mg QHS PO Last administered on 05/16/17 22:37; Start 05/16/17 at 21:00; Stop 06/15/17 at 20:59 Mirtazapine (Remeron) 30 mg QHS PO Last administered on 04/28/17 22:50; Start 04/21/17 at 21:00; Stop 05/01/17 at 11:06; Status DC Mirtazapine (Remeron) 30 mg QHS PRN PO Insomnia; Start 03/19/17 at 11:15; Stop 03/21/17 at 16:05; Status DC Mirtazapine (Remeron) 45 mg QHS PO ; Start 04/12/17 at 21:00; Stop 04/12/17 at 21:59; Status DC Mirtazapine (Remeron) 45 mg QHS PO Last administered on 04/20/17 20:46; Start 04/14/17 at 21:00; Stop 04/21/17 at 14:45; Status DC Mirtazapine (Remeron) 45 mg QHSP PRN PO Insomnia Last administered on 20:35; Start 03/21/17 at 16:15; Stop 04/11/17 at 20:35; Status DC Miscellaneous (Unresolved Clarification Entry) SEE LABEL COMMENTS UNRESOLVED XX ; Start 03/07/17 at 00:01; Stop 03/10/17 at 15:08; Status DC Nicotine (Nicoderm Cq 14mg) 1 patch DAILY TD Last administered on 05/01/17 07: 30; Start 04/15/17 at 09:00; Stop 05/01/17 at 16:48; Status DC Nicotine (Nicoderm Cq 21mg) 1 patch DAILY TD Last administered on 04/11/17 07: 49; Start 02/04/17 at 09:00; Stop 04/11/17 at 20:35; Status DC Nicotine (Nicoderm Cq 21mg) 1 patch DAILY TD Last administered on 04/12/17 14: 54; Start 04/12/17 at 09:00; Stop 04/12/17 at 21:59; Status DC Nicotine (Nicoderm Cq 21mg) 1 patch DAILY TD Last administered on 05/23/17 08: 00; Start 05/01/17 at 09:00; Stop 05/31/17 at 08:59 Olanzapine (ZyPREXA) 10 mg DAILY PO Last administered on 02/04/17 08:59; Start 02/03/17 at 09:00; Stop 02/04/17 at 14:20; Status DC Paliperidone (Invega) 6 mg QHS PO Last administered on 05/01/17 20:52; Start 05/01/17 at 21:00; Stop 05/05/17 at 13:45; Status DC Paliperidone Palmitate (Invega Sustenna) 234 mg Q30D IM Last administered on 15:52; Start 05/06/17 at 09:00; Stop 06/05/17 at 08:59 Quetiapine Fumarate (SEROquel) 200 mg QHS PO ; Start 02/04/17 at 21:00; Stop at 13:42; Status DC Ramelteon (Rozerem) 8 mg QHS PO Last administered on 05/14/17 22:30; Start at 21:00; Stop 05/16/17 at 17:31; Status DC Trazodone HCl (Desyrel) 50 mg QHSP PRN PO INSOMNIA; Start 02/03/17 at 16:45; Stop 03/05/17 at 16:44; Status Cancel Trazodone HCl (Desyrel) 50 mg QHSP PRN PO INSOMNIA Last administered on 21:49; Start 02/28/17 at 12:45; Stop 03/10/17 at 15:11; Status DC Venlafaxine HCl (Effexor Xr) 75 mg DAILY PO Last administered on 02/06/17 08:28; Start 02/04/17 at 09:00; Stop 02/06/17 at 18:02; Status DC Venlafaxine HCl (Effexor Xr) 150 mg BID PO Last administered on 04/11/17 07:48; Start 03/07/17 at 09:00; Stop 04/11/17 at 20:35; Status DC Venlafaxine HCl (Effexor Xr) 150 mg BID PO ; Start 04/12/17 at 21:00; Stop 04/12/17 at 21:59; Status DC Venlafaxine HCl (Effexor Xr) 150 mg QHS PO Last administered on 02/23/17 21 :05; Start 02/07/17 at 21:00; Stop 02/24/17 at 17:59; Status DC Venlafaxine HCl (Effexor Xr) 300 mg DAILY PO Last administered on 05/23/17 08:01; Start 05/15/17 at 09:00; Stop 06/14/17 at 08:59 Venlafaxine HCl (Effexor) 150 mg BID PO Last administered on 03/06/17 20:04; Start 02/24/17 at 21:00; Stop 03/06/17 at 23:26; Status DC Venlafaxine HCl (Effexor) 150 mg BID PO Last administered on 05/14/17 08:07; Start 04/14/17 at 21:00; Stop 05/14/17 at 20:30; Status DC Allergies Coded Allergies: Loxapine (Verified Allergy, Mild, 01/21/13) Thiothixene (Verified Allergy, Mild, 01/21/13) Fluphenazine (Verified Allergy, Unknown, 09/12/15) UNKNOWN [place] (Verified Allergy, Unknown, UNKNOWN, 09/12/15) Meperidine (Verified Allergy, Unknown, UNKNOWN, 09/12/15) Phenothiazines (Verified Allergy, Unknown, UNKNOWN, 09/12/15) Thioridazine (Verified Allergy, Unknown, UNKNOWN, 09/12/15) KELVIN GARIBAY MD May 23, 2017 15:43
[2017-05-23 18:00] VITALS: BP 113/58
[2017-05-23] MEDS: MIRTAZAPINE 15 MG TAB PO SCH (21:00)
[2017-05-23] MEDS: ARIPiprazole 10 MG TAB PO SCH (21:14)
[2017-05-23] MEDS: MAALOX 30 ML SUSP *UDC PO PRN (23:32)
[2017-05-24] MEDS: NICOTINE 21MG/24HR 1 EA TRANSDERMAL TD SCH (08:01)
[2017-05-24] MEDS: VENLAFAXINE **XR** 75MG CAPSULE PO SCH (08:02)
[2017-05-24] MEDS: GABAPENTIN 300 MG CAP PO SCH ×3 (08:02→20:00)
[2017-05-24] MEDS: cloZAPine 25 MG TAB (S0136) PO SCH (08:02)
[2017-05-24] MEDS: ARIPiprazole 15 MG TAB (AbiLIFY) PO SCH (08:02)
[2017-05-24 18:00] VITALS: BP 143/79
[2017-05-24] MEDS: MIRTAZAPINE 15 MG TAB PO SCH (20:00)
[2017-05-24] MEDS: ARIPiprazole 10 MG TAB PO SCH (20:00)
[2017-05-25] MEDS: cloZAPine 25 MG TAB (S0136) PO SCH (08:01)
[2017-05-25] MEDS: GABAPENTIN 300 MG CAP PO SCH ×3 (08:01→20:01)
[2017-05-25] MEDS: VENLAFAXINE **XR** 75MG CAPSULE PO SCH (08:01)
[2017-05-25] MEDS: NICOTINE 21MG/24HR 1 EA TRANSDERMAL TD SCH (08:01)
[2017-05-25] MEDS: ARIPiprazole 15 MG TAB (AbiLIFY) PO SCH (08:01)
[2017-05-25 18:00] VITALS: BP 129/75
[2017-05-25] MEDS: ARIPiprazole 10 MG TAB PO SCH (20:01)
[2017-05-25] MEDS: MAALOX 30 ML SUSP *UDC PO PRN (20:01)
[2017-05-25] MEDS: MIRTAZAPINE 15 MG TAB PO SCH (20:26)
[2017-05-26] MEDS: NICOTINE 21MG/24HR 1 EA TRANSDERMAL TD SCH (08:07)
[2017-05-26] MEDS: ARIPiprazole 15 MG TAB (AbiLIFY) PO SCH (08:08)
[2017-05-26] MEDS: VENLAFAXINE **XR** 75MG CAPSULE PO SCH (08:08)
[2017-05-26] MEDS: cloZAPine 25 MG TAB (S0136) PO SCH (08:08)
[2017-05-26] MEDS: GABAPENTIN 300 MG CAP PO SCH ×3 (08:08→19:39)
[2017-05-26 18:42] VITALS: BP 138/68
[2017-05-26] MEDS: ARIPiprazole 10 MG TAB PO SCH (19:39)
[2017-05-26] MEDS: MIRTAZAPINE 15 MG TAB PO SCH (20:28)
--- NOTE | 2017-05-27 05:55 | MHIPN ---
DATE: 05/26/2017 HISTORY: A 52-year-old male with history of paranoid schizophrenia and major depressive disorder. SUBJECTIVE: The patient reports sleeping well, eating well, looking forward to going to transitional living services ([facility]), reports he does not want to take his Clozaril because that involves blood draws and he says that he does not have any more blood in his arteries due to the blood draws. The patient denies auditory or visual hallucinations, but he is still responding to internal stimuli, internally preoccupied with paranoid delusions. He says, "You wanna kill me with the Clozaril, go ahead and kill me." OBJECTIVE: The patient's mood and affect are very labile. He started having a good conversation with this rfp writer, and as soon as the medication was mentioned, he became extremely upset and loud. He continues to be delusional, the delusions are of paranoid and persecutory content. He denies auditory or visual hallucinations , but he is internally preoccupied. He denies suicidal or homicidal ideations. His insight and judgment are very poor, his impulse control is fair. His memory, recent and remote, are limited due to cognitive impairment due to paranoid schizophrenia. Attention and concentration are limited. He is easily distractible. ASSESSMENT: The patient has refused to continue taking Clozaril. We will attempt once again to have his blood drawn tomorrow to increase Clozaril to 50 mg. We will monitor and closely followup. MTDD
[2017-05-27] MEDS: VENLAFAXINE **XR** 75MG CAPSULE PO SCH (08:01)
[2017-05-27] MEDS: GABAPENTIN 300 MG CAP PO SCH ×3 (08:01→21:54)
[2017-05-27] MEDS: ARIPiprazole 15 MG TAB (AbiLIFY) PO SCH (08:01)
[2017-05-27] MEDS: NICOTINE 21MG/24HR 1 EA TRANSDERMAL TD SCH (08:02)
[2017-05-27] MEDS: cloZAPine 25 MG TAB (S0136) PO SCH (08:02)
[2017-05-27] MEDS: MIRTAZAPINE 15 MG TAB PO SCH (21:00)
--- NOTE | 2017-05-27 21:41 | MHIPN ---
DATE: 05/27/2017 52-year-old male with history of paranoid schizophrenia. SUBJECTIVE: Patient refused to talk to this magnetic tape typewriter operator today, was reported being agitated, although not aggressive, responding to internal stimuli, denying auditory and visual hallucinations. Staff perceives him as being paranoid and suspicious. OBJECTIVE: It was not possible to complete the evaluation of this patient today because he refused speaking to this magnetic tape typewriter operator, but he was observed to be very angry, pacing up and down the hallways, maintaining an angry look in his face. According to staff, he continues to ask when he will be leaving and he believes that he is going to [facility] tomorrow. ASSESSMENT: Patient was doing well a couple of days ago and now he is decompensating again, most likely because he is deceived, he thought he was going to [facility] yesterday when he was interviewed and apparently the interview did not go that well because he failed to provide much of his information to the [facility] staff. MANAGEMENT PLAN: Patient will continue on the same medications until he agrees to have blood drawn to increase his Clozaril dose. Will followup.
[2017-05-27] MEDS: ARIPiprazole 10 MG TAB PO SCH (21:54)
[2017-05-28] MEDS: cloZAPine 25 MG TAB (S0136) PO SCH (08:12)
[2017-05-28] MEDS: ARIPiprazole 15 MG TAB (AbiLIFY) PO SCH (08:13)
[2017-05-28] MEDS: VENLAFAXINE **XR** 75MG CAPSULE PO SCH (08:13)
[2017-05-28] MEDS: GABAPENTIN 300 MG CAP PO SCH ×3 (08:13→21:03)
[2017-05-28] MEDS: NICOTINE 21MG/24HR 1 EA TRANSDERMAL TD SCH (08:14)
[2017-05-28 18:15] VITALS: BP 128/78
[2017-05-28] MEDS: MIRTAZAPINE 15 MG TAB PO SCH ×2 (21:00→23:51)
[2017-05-28] MEDS: ARIPiprazole 10 MG TAB PO SCH (21:03)
[2017-05-29] MEDS: ARIPiprazole 15 MG TAB (AbiLIFY) PO SCH (08:06)
[2017-05-29] MEDS: GABAPENTIN 300 MG CAP PO SCH ×3 (08:06→20:09)
[2017-05-29] MEDS: VENLAFAXINE **XR** 75MG CAPSULE PO SCH (08:06)
[2017-05-29] MEDS: NICOTINE 21MG/24HR 1 EA TRANSDERMAL TD SCH (08:07)
[2017-05-29] MEDS: cloZAPine 25 MG TAB (S0136) PO SCH (08:54)
[2017-05-29 12:18] LABS: BASO # 0.1 K/mm3 (0.0-0.2); BASO % 0.9 % (0.0-1.0); EOS # 0.3 K/mm3 (0.0-0.50); EOS % 4.4 % (0.0-3.0); LARGE UNSTAINED CELL # 0.4 K/mm3 (0.0-0.4); LARGE UNSTAINED CELL % 4.7 % (0.0-4.0); LYMPH # 1.9 K/mm3 (1.5-4.5); LYMPH % 24.9 % (24.0-44.0); MEAN CORPUSCULAR HEMOGLOBIN 31.8 pg (27.0-33.0); MEAN CORPUSCULAR VOLUME 90.8 fl (80.0-96.0); MONO # 0.6 K/mm3 (0.0-0.8); MONO % 7.4 % (0.0-5.0); NEUTROPHILS # 4.5 K/mm3 (1.8-7.7); NEUTROPHILS % 57.7 % (36.0-66.0); PLATELET COUNT, AUTOMATED 229 k/mm3 (150-450); RED CELL DISTRIBUTION WIDTH 12.8 % (11.5-14.5); WHITE BLOOD COUNT 7.7 K/mm3 (4.0-10.0)
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
[2017-05-29 18:00] VITALS: BP 121/75
[2017-05-29] MEDS: ARIPiprazole 10 MG TAB PO SCH (20:09)
[2017-05-29] MEDS: MIRTAZAPINE 15 MG TAB PO SCH (21:00)
--- NOTE | 2017-05-30 00:23 | MHIPN ---
DATE: 05/29/2017 A 52-year-old male with a history of paranoid schizophrenia and major depressive disorder. SUBJECTIVE: The patient says he does not mind not going to [facility]), "it's okay, doctor." He says he only wants to get out of the inpatient mental health until, he is already tired of being there. He understands he has not gone because there has not been a chance for him in other places for long-term treatment. The patient describes how much he enjoys nature, watching birds and squirrels and all other animals, reports he is turning into a vegetarian, he is trying to avoid meat, continues to believe that the hospital food has "stuff" that is not good. OBJECTIVE: The patient is alert, oriented to place and person, cooperative, calm, speaking in a soft voice, with organized thought process and coherent thought content. He is not responding to internal stimuli, denies suicidal and homicidal ideation and at the time of this evaluation, he was not delusional. He was less guarded, his mood and affect were calmer, euthymic. Memory fair, attention and concentration fair good, insight and judgment improved. Impulse control is fair. ASSESSMENT: The patient is completely different right now compared to how he was this morning or even yesterday afternoon. Today, he is coherent, cooperative and he is not irritable. The patient shows a major improvement. MANAGEMENT PLAN: The patient has agreed to staff nurse, José Miguel Mi, to have his blood drawn and to have an increase in Clozaril. Will try to register the patient in the Clozaril registry. Will followup.
[2017-05-30] MEDS: GABAPENTIN 300 MG CAP PO SCH ×3 (08:10→22:51)
[2017-05-30] MEDS: ARIPiprazole 15 MG TAB (AbiLIFY) PO SCH (08:10)
[2017-05-30] MEDS: VENLAFAXINE **XR** 75MG CAPSULE PO SCH (08:10)
[2017-05-30] MEDS: NICOTINE 21MG/24HR 1 EA TRANSDERMAL TD SCH (08:11)
[2017-05-30] MEDS: cloZAPine 25 MG TAB (S0136) PO SCH ×2 (09:00→16:21)
[2017-05-30] MEDS ORDERED: HALOPERIDOL 10 MG TAB PO PRN (10:15)
[2017-05-30 18:00] VITALS: BP 136/63
[2017-05-30] MEDS: MIRTAZAPINE 15 MG TAB PO SCH (21:00)
[2017-05-30] MEDS: ARIPiprazole 10 MG TAB PO SCH (22:51)
[2017-05-31] MEDS: cloZAPine 25 MG TAB (S0136) PO SCH (08:00)
[2017-05-31] MEDS: VENLAFAXINE **XR** 75MG CAPSULE PO SCH (08:03)
[2017-05-31] MEDS: ARIPiprazole 15 MG TAB (AbiLIFY) PO SCH (08:03)
[2017-05-31] MEDS: GABAPENTIN 300 MG CAP PO SCH ×2 (08:03→15:42)
[2017-05-31] MEDS: NICOTINE 21MG/24HR 1 EA TRANSDERMAL TD SCH (08:04)
--- NOTE | 2017-05-31 14:39 | MHIPN ---
DATE: 05/30/2017 AGE: [age] years old 52-year-old with history of paranoid schizophrenia and major depressive disorder. SUBJECTIVE: The patient requests to have access to his bathroom. He states, "I am really tired of having to ask the nurse to open my bathroom when I went to get in, it is not fair." "I never clogged the toilet, it was all those people that come in and out of my bedroom." Staff has not reported aggressiveness from patient, but continues to report him isolated to his room, responding to internal stimuli, but less frequently than before. OBJECTIVE: The patient is alert, cooperative but irritable. Less talkative than yesterday. His speech is louder, slightly tangential, slightly circumstantial. His thought process is a little bit disorganized. His thought content is anxious/angry about being locked out of his bathroom. He denies auditory or visual hallucinations and was not responding to internal stimuli at the time he was evaluated, but he continues to have paranoid delusions. He denies suicidal ideation and homicidal ideation. His insight and judgment are limited today. His impulse control is fair. ASSESSMENT: The patient continues to be redirectable. He is not as calm as he was yesterday, but he is not aggressive either. He was not seen responding to internal stimuli and has been taking almost all of his medications. MANAGEMENT PLAN: The patient will continue the same medications. He has been enrolled already in the Clozaril registry. Hopefully, he will accept his 50 mg of Clozaril today. We will followup closely. TERRANCE
[2017-05-31] MEDS: MIRTAZAPINE 15 MG TAB PO SCH (21:00)
[2017-06-01] MEDS: ARIPiprazole 10 MG TAB PO SCH ×2 (00:09→20:47)
[2017-06-01] MEDS: GABAPENTIN 300 MG CAP PO SCH ×4 (00:09→20:47)
[2017-06-01] MEDS: ARIPiprazole 15 MG TAB (AbiLIFY) PO SCH (08:07)
[2017-06-01] MEDS: VENLAFAXINE **XR** 75MG CAPSULE PO SCH (08:07)
[2017-06-01] MEDS: cloZAPine 25 MG TAB (S0136) PO SCH (08:07)
[2017-06-01] MEDS: NICOTINE 21MG/24HR 1 EA TRANSDERMAL TD SCH (08:08)
[2017-06-01 18:45] VITALS: BP 128/74
[2017-06-01] MEDS: MIRTAZAPINE 15 MG TAB PO SCH (21:00)
[2017-06-02] MEDS: GABAPENTIN 300 MG CAP PO SCH ×3 (08:01→20:13)
[2017-06-02] MEDS: NICOTINE 21MG/24HR 1 EA TRANSDERMAL TD SCH (08:01)
[2017-06-02] MEDS: ARIPiprazole 15 MG TAB (AbiLIFY) PO SCH (08:01)
[2017-06-02] MEDS: VENLAFAXINE **XR** 75MG CAPSULE PO SCH (08:01)
[2017-06-02] MEDS: cloZAPine 25 MG TAB (S0136) PO SCH ×2 (08:03→21:00)
[2017-06-02 18:00] VITALS: BP 112/63
[2017-06-02] MEDS: ARIPiprazole 10 MG TAB PO SCH (20:13)
[2017-06-02] MEDS: MIRTAZAPINE 15 MG TAB PO SCH (20:13)
[2017-06-02] MEDS ORDERED: MIRTAZAPINE 15 MG TAB PO SCH (21:00)
[2017-06-03] MEDS: GABAPENTIN 300 MG CAP PO SCH ×3 (08:11→20:16)
[2017-06-03] MEDS: VENLAFAXINE **XR** 75MG CAPSULE PO SCH (08:11)
[2017-06-03] MEDS: ARIPiprazole 15 MG TAB (AbiLIFY) PO SCH (08:11)
[2017-06-03] MEDS: NICOTINE 21MG/24HR 1 EA TRANSDERMAL TD SCH (08:11)
--- NOTE | 2017-06-03 08:48 | MHIPN ---
DATE OF SERVICE: 06/02/2017 A 52-year-old with history of paranoid schizophrenia and major depressive disorder. SUBJECTIVE: The patient reports he does not want to take his Remeron. He also does not want to take Clozaril because it makes him too sleepy. (He reported this to nursing staff.) When he met with this policy writer, he says he felt good, has slept good, has good appetite, and once again he requested to have his bathroom opened. OBJECTIVE: The patient is alert, oriented to place and person, cooperative, a little bit irritable. He has poverty of speech. His though process is more organized. His thought content is anxious. He has paranoid delusions. He was not seen responding to internal stimuli. He denied suicidal and homicidal ideation. His insight and judgment are still limited. His memory seems to be intact. Attention and concentration are fair. ASSESSMENT: The patient did not accept his medication today. We are trying to change the hour for Clozaril at bedtime and will decrease the dose of Remeron to 15 mg by mouth nightly. Maybe in that way, he will be willing to comply with it. Will monitor closely and followup.
[2017-06-03 18:00] VITALS: BP 125/86
[2017-06-03] MEDS: ARIPiprazole 10 MG TAB PO SCH (20:16)
[2017-06-03] MEDS: cloZAPine 25 MG TAB (S0136) PO SCH (20:17)
[2017-06-03] MEDS: MIRTAZAPINE 15 MG TAB PO PRN (21:10)
[2017-06-04] MEDS: ARIPiprazole 15 MG TAB (AbiLIFY) PO SCH (08:13)
[2017-06-04] MEDS: VENLAFAXINE **XR** 75MG CAPSULE PO SCH (08:13)
[2017-06-04] MEDS: NICOTINE 21MG/24HR 1 EA TRANSDERMAL TD SCH (08:13)
[2017-06-04] MEDS: GABAPENTIN 300 MG CAP PO SCH ×3 (08:13→20:38)
[2017-06-04] MEDS: ARIPiprazole 10 MG TAB PO SCH (20:38)
[2017-06-04] MEDS: cloZAPine 25 MG TAB (S0136) PO SCH (20:39)
[2017-06-04] MEDS: MIRTAZAPINE 15 MG TAB PO PRN (22:06)
[2017-06-05] MEDS: NICOTINE 21MG/24HR 1 EA TRANSDERMAL TD SCH (08:07)
[2017-06-05] MEDS: ARIPiprazole 15 MG TAB (AbiLIFY) PO SCH (08:07)
[2017-06-05] MEDS: GABAPENTIN 300 MG CAP PO SCH ×3 (08:07→21:03)
[2017-06-05] MEDS: VENLAFAXINE **XR** 75MG CAPSULE PO SCH (08:07)
--- NOTE | 2017-06-05 16:41 | MHIPN ---
DATE OF SERVICE: 06/03/2017 52-year-old male with history of paranoid schizophrenia and major depressive disorder. SUBJECTIVE: Patient reports that he did not sleep well last night; he states that says he has not been taking Remeron because it makes him too sleepy. He requests to have it as needed instead of nightly on a scheduled dose. Patient reports feeling well; he says he wants to go home. He says that he would like to be discharged on Abilify, venlafaxine, 15 mg as needed nightly of Remeron. He says he wanted the Clozaril because he has to have blood drawn every week and he does not like this because it affects his veins. At this time, he shows me both hands and he says that his veins are getting ruined. OBJECTIVE: Patient is alert and oriented to place and person, partially delayed in time. He is cooperative; his speech is spontaneous and fluent. His thought process is a little bit more organized. This thought content is a little bit anxious. He denies auditory and visual hallucinations; he is not responding to internal stimuli, although he has some paranoid delusions and bizarre thoughts. His memory seems to be intact. Attention and concentration are good. Insight and judgment fair. ASSESSMENT: Patient seems to be improving; unfortunately, he does not want to take Clozaril. He is due for his next injection of paliperidone in a couple of days, and we are planning on discharging him on Friday if the [facility] ([facility] team still accepts him back. Will monitor closely and will followup.
[2017-06-05] MEDS ORDERED: ARIP15TAB PO (20:18)
[2017-06-05] MEDS ORDERED: ARIP10TAB PO (20:19)
[2017-06-05] MEDS ORDERED: NICO21PAT TD (20:19)
[2017-06-05] MEDS ORDERED: VENL75CA2 PO (20:19)
[2017-06-05] MEDS ORDERED: GABA-282 PO (20:19)
[2017-06-05] MEDS ORDERED: MIRT15TA3 PO (20:19)
[2017-06-05] MEDS ORDERED: HALO10TA2 PO (20:19)
[2017-06-05] MEDS ORDERED: INVE234I IM (20:28)
[2017-06-05] MEDS ORDERED: LORA1TAB12 PO (20:28)
[2017-06-05] MEDS ORDERED: PALIPERIDONE PALMITATE 234 MG/1.5 ML INJ (INVEGA SUSTENNA)(J2426) IM SCH (21:00)
[2017-06-05] MEDS: cloZAPine 25 MG TAB (S0136) PO SCH (21:00)
[2017-06-05] MEDS: ARIPiprazole 10 MG TAB PO SCH (21:03)
[2017-06-05] MEDS: MIRTAZAPINE 15 MG TAB PO PRN (23:05)
[2017-06-06] MEDS: VENLAFAXINE **XR** 75MG CAPSULE PO SCH (08:10)
[2017-06-06] MEDS: ARIPiprazole 15 MG TAB (AbiLIFY) PO SCH (08:10)
[2017-06-06] MEDS: GABAPENTIN 300 MG CAP PO SCH (08:10)
[2017-06-06] MEDS: NICOTINE 21MG/24HR 1 EA TRANSDERMAL TD SCH (08:10)
--- NOTE | 2017-06-06 11:51 | MHIPN ---
DATE OF DICTATION: 06/04/2017 52-year-old male with history of paranoid schizophrenia and major depressive disorder. SUBJECTIVE: Patient insists on being discharged, he says he is going to back to his apartment, he is going to try to remain compliant with medications, he hopes the ACT team does not change his meds. Continues to refuse Clozaril. OBJECTIVE: Patient is alert, oriented to place and person, partially to date and time. Speech is soft spoken, spontaneous at times and sparse at times. His mood is good, he is not irritable today. His thought process continues to be a little bit tangential, his thought content is still delusional at times. He denies suicidal and homicidal ideation, he is not responding to internal stimuli at the time of the interview and he does not admit, does not deny having auditory or visual hallucinations. His insight and judgment seem to have improved, he is more coherent. ASSESSMENT: Patient continues to show improvement, if he continues to be like this, he could be discharged on Friday as it has been planned. PLAN: Discharge him on Friday, he is ready to go home and he has improved. If ACT team is not ready to take him, will research other possibilities so that he can receive the proper services. Will followup.
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
--- NOTE | 2017-06-07 19:51 | MHIPN ---
DATE: 06/05/2017 A 52-year-old male with history of paranoid schizophrenia and major depressive disorder. SUBJECTIVE: Patient reports eating well, sleeping well, says he feels excited about going home tomorrow. OBJECTIVE: The patient is alert, oriented to place and person, partially to date and time, cooperative, with poor eye contact. His speech is soft spoken, sparse. Thought process is less tangential. Thought content is more coherent. The patient goes back and forth between being slightly delusional to having a coherent conversation, but overall he shows improvement. He is not suicidal, he is not homicidal, he is not responding to internal stimuli, but he continues to have, in a lesser degree, paranoid and persecutory delusions. His memory seems to be intact. Attention and concentration are fine. Judgment and insight have improved. ASSESSMENT: The patient is at his baseline, he has improved, he still has some paranoid delusions but he is not a danger to self or others. In fact, he has not been dangerous to anyone to the inpatient mental health unit since he was admitted on 02/03. The patient feels ready to be discharged tomorrow early in the morning, he is going back to his house. We will reevaluate him tomorrow before he leaves. We will monitor and followup closely.
== END 2017-06-06 10:15 | disposition home or self-care (01) | DRG 885 ==
LOC: M ED 12:22 → M ED INP 12:29 → M PSY 15:00 → UNDODISIN 04-11 20:33 → M PSY 04-14 14:27
PROVIDERS: ADMIT Psychiatry & Neurology Psychiatry; ATTEND Psychiatry & Neurology Psychiatry
DX: F20.0 Paranoid schizophrenia (principal); F33.1 Major depressive disorder, recurrent, moderate; Z91.19 Patient's noncompliance with other medical treatment and regimen; Z79.899 Other long term (current) drug therapy; Z88.8 Allergy status to other drugs, medicaments and biological substances; F17.210 Nicotine dependence, cigarettes, uncomplicated; I95.9 Hypotension, unspecified; R00.0 Tachycardia, unspecified

== ENCOUNTER 2017-04-11 12:49 | Inpatient (IN) | payer MEDICARE, MEDICAID ==
[~2017-04-11] VITALS: Ht 175.3 cm; Wt 104.5 kg
[~2017-04-11 12:49] MED LIST changes: -BENZ-52 PO; +BENZ1TA PO; +BENZ5TA PO; +BUSP1TAB PO; +COLA100C3 PO; -COLA100C5 PO; +DOCU100C PO; +GABA-279 PO; +GABA-283 PO; +MYLASSUD PO; -TRAZ50TA11 PO; +TRAZ50TA4 PO; +VENL75CA47 PO
[2017-04-11 13:52] VITALS: BP 152/81
[2017-04-11] MEDS ORDERED: ACETAMINOPHEN TAB 650MG DOSE (2X325MG) PO PRN (14:15)
[2017-04-11] MEDS: ENOXAPARIN 40 MG/0.4 ML SYRINGE (J1650) SC SCH (14:45)
[2017-04-11] MEDS: NICOTINE 21MG/24HR 1 EA TRANSDERMAL TD SCH (14:45)
--- NOTE | 2017-04-11 15:21 | HPE ---
DATE OF ADMISSION: 04/11/2017 PRIMARY CARE PROVIDER: None. PSYCHIATRIST: Patient has been in inpatient psychiatry, being followed by Dr. Tapia. REASON FOR ADMISSION: Rule out sepsis. HISTORY OF PRESENT ILLNESS: The patient is a 52-year-old male with past medical history significant for anxiety, bipolar disorder, paranoid schizophrenia, tobacco abuse, who was admitted to inpatient psychiatry for treatment. I was called today by psychiatrist due to patient, having fevers as high as 101.9, leukocytosis as high as 20,000, tachycardia, and asked for an evaluation. I went to see the patient. He had no current complaints. He denied any shortness of breath or cough. Denied any nausea, vomiting, or diarrhea. Denied any abdominal pain. Denied any urinary urgency or frequency. Denied any open sores or lesions anywhere in the skin. The patient was recently started on Clozaril on March 27. One of the side effects is neutropenia, change in body temperature, and tachycardia; however, the patient was transferred to inpatient medical floor, medical/surgical, to rule out sepsis. REVIEW OF SYSTEMS: A 12-point review of systems was obtained, all which was negative except for those mentioned above. PAST MEDICAL HISTORY: Significant for: 1. Bipolar disorder. 2. Paranoid schizophrenia. 3. Anxiety. PAST SURGICAL HISTORY: Significant for: 1. Colonoscopy. 2. Nasal surgery. 3. Cardiac catheterization. SOCIAL HISTORY: Patient is a single. Smoker, one pack a day ALLERGIES: The patient has multiple drug allergies to LITHIUM, LOXAPINE, MEPERIDINE, THORAZINE, THIOZINE, PHENOTHIAZINE, FLUPHENAZINE. FAMILY HISTORY: Noncontributory. CURRENT MEDICATIONS Include: - Abilify 20 mg by mouth twice a day - buspirone 7.5 mg by mouth three times a day - docusate 100 mg by mouth twice a day - gabapentin 100 mg by mouth daily - gabapentin 100 mg by mouth at bedtime - Haldol 50 mg intramuscular (IM) every 2 weeks - venlafaxine 75 mg by mouth daily. The patient was taken off of the Clozaril prior to coming here. PHYSICAL FINDINGS: VITAL SIGNS: Temperature at this time is 97.8, pulse is 110, respiratory rate 18, blood pressure is 152/81, pulse oximetry 93% on room air. HEENT: Pupils equal, round, reactive to light and accommodation. NECK: Supple. No jugular venous distention (JVD). LUNGS: Clear to auscultation (CTA) bilaterally. jugular 50 bilaterally. ABDOMEN: Soft, nontender, nondistended. EXTREMITIES: No clubbing, cyanosis, or edema. CARDIAC: Regular rate and rhythm. NEUROLOGIC: Cranial nerves II-XII grossly intact. No focal deficits. WBC 20.7, hemoglobin 14.3, hematocrit 40.5, platelet count 313. Sodium 141, by mouth 3.9, chloride 104, BUN 12, creatinine 0.86, fasting glucose 114, lactic acid 2.4. AST, ALT, alkaline phosphatase are all within normal limits. Urinalysis is currently pending. Chest x-ray showed suspecting developing lower lobe pneumonia. ASSESSMENT AND PLAN: 1. Sepsis likely secondary to pneumonia plus or minus drug reaction. The patient was recently started on a new psychiatric medication, Clozaril, that was discontinued. One of the side effects of that medication would include fluctuation of body temperature, neutropenia, and tachycardia. We will continue to monitor the patient. Await blood cultures and urine cultures. We will start the patient on intravenous (IV) antibiotics and continue to monitor overnight. 2. History of schizophrenia. Continue the patient's psychiatric medications. 3. History of bipolar disorder. 4. History of tobacco abuse. Will order a nicotine patch 21 mg transdermally daily.
[2017-04-11] MEDS ORDERED: CEFEPIME HCL 1 GM in D5W MINI-BAG PLUS 50 ML IV SCH (17:00)
[2017-04-11] MEDS ORDERED: MIRTAZAPINE 15 MG TAB PO PRN (17:15)
[2017-04-11] MEDS ORDERED: ARIPiprazole 10 MG TAB PO SCH (21:00)
[2017-04-12 06:00] VITALS: BP 129/87
[2017-04-12] MEDS ORDERED: MOXIFLOXACIN 400 MG TAB PO SCH (06:00)
[2017-04-12 06:08] LABS: MEAN CORPUSCULAR HEMOGLOBIN 32.3 pg (27.0-33.0); MEAN CORPUSCULAR HGB CONC 35.8 g/dl (32.0-36.5); MEAN CORPUSCULAR VOLUME 90.2 fl (80.0-96.0); WHITE BLOOD COUNT 10.7 K/mm3 (4.0-10.0)
[2017-04-12 06:23] LABS: ALBUMIN 3.3 GM/DL (3.2-5.2); ALKALINE PHOSPHATASE 52 U/L (45-117); ALT/SGPT 39 U/L (12-78); ANION GAP 6 MEQ/L (8-16); AST/SGOT 15 U/L (15-37); BILIRUBIN,TOTAL 0.4 MG/DL (0.2-1.0); BLOOD UREA NITROGEN 11 MG/DL (7-18); CALCIUM LEVEL 8.7 MG/DL (8.5-10.1); CARBON DIOXIDE LEVEL 27 MEQ/L (21-32); CHLORIDE LEVEL 108 MEQ/L (98-107); CREATININE FOR GFR 0.82 MG/DL (0.70-1.30); GLOMERULAR FILTRATION RATE > 60.0 (>56); GLUCOSE, FASTING 101 MG/DL (70-105); POTASSIUM SERUM 3.9 MEQ/L (3.5-5.1); SODIUM LEVEL 141 MEQ/L (136-145); TOTAL PROTEIN 7.4 GM/DL (6.4-8.2)
[2017-04-12] MEDS: NICOTINE 21MG/24HR 1 EA TRANSDERMAL TD SCH (07:54)
[2017-04-12] MEDS: ENOXAPARIN 40 MG/0.4 ML SYRINGE (J1650) SC SCH (07:55)
[2017-04-12] MEDS ORDERED: CEFDINIR 300 MG CAP (OMNICEF) PO SCH (09:00)
[2017-04-12] MEDS ORDERED: GABAPENTIN 300 MG CAP PO SCH (09:00)
[2017-04-12] MEDS ORDERED: VENLAFAXINE **XR** 75MG CAPSULE PO SCH (09:00)
[2017-04-12] MEDS ORDERED: ARIPiprazole 10 MG TAB PO SCH (09:00)
[2017-04-12] MEDS ORDERED: MIRT15TA3 PO ×2 (09:43→21:40)
[2017-04-12] MEDS ORDERED: CEFD300CAP PO (09:43)
[2017-04-12] MEDS ORDERED: ARIP10TAB PO ×3 (09:43→21:40)
[2017-04-12] MEDS ORDERED: GABA-282 PO (09:43)
[2017-04-12] MEDS ORDERED: VENL75CA PO ×2 (09:43→21:40)
--- NOTE | 2017-04-12 16:23 | DSES ---
DATE OF ADMISSION: 04/11/2017 DATE OF DISCHARGE: 04/12/2017 REASON FOR ADMISSION: Rule out sepsis. FINAL DIAGNOSES 1. Left lower lobe pneumonia. 2. Neutropenia may be secondary to drug reaction. 3. Paranoid schizophrenia. 4. Bipolar disorder. 5 Anxiety. HISTORY OF PRESENT ILLNESS: Patient is a 52-year-old male with no past medical history other than psychiatric disorders including schizophrenia, bipolar disorder and anxiety who was transferred to the acute medical setting from inpatient mental health due to fever, leukocytosis and tachycardia with the intent to rule out sepsis. The patient started to complaining of fever. He had a temperature as high as 101.9. He had a leukocytosis of 20,000. He was tachycardiac, lactic acid of 2.4. He was transferred to the medical floor to rule out sepsis. HOSPITAL COURSE: The patient was started on intravenous (IV) antibiotics. Blood and urine cultures were obtained, as well as chest x-ray. Chest x-ray showed left lower lobe pneumonia. The patient was started on IV cefepime. However, later that day he pulled out his IV and he was switched to moxifloxacin. The following day, labs were repeated. The patient's white count had dropped a 10.7. His leukocytosis had improved dramatically. He did not have any fevers overnight. He was still, however, tachycardiac in the one-teens. However, the patient was very agitated and paranoid, stating that the nursing staff is pushing him for no reason, even though no one has entered his room. Once the patient's medication was changed to oral Omnicef, the following day he was returned back to the psych evans. DISCHARGE INSTRUCTIONS: The patient is to followup with primary care provider in one week. He is to followup with psychiatrist as needed. Diet regular. Activities as tolerated. Discharge medications include: - Omnicef 300 mg by mouth twice a day for even days - Abilify 20 mg by mouth twice a day - gabapentin 600 mg by mouth twice a day - Remeron 45 mg by mouth as needed for insomnia - Effexor XR 150 mg by mouth daily. DISCHARGE CONDITION: Stable.
[2017-04-12] MEDS ORDERED: METO25TAB PO (21:40)
[2017-04-12] MEDS ORDERED: HALO10AM IM (21:40)
== END 2017-04-12 12:30 | DRG 194 ==
LOC: M MSPAV 13:48 → UNDOADMIN 13:48
PROVIDERS: ADMIT Internal Medicine; ATTEND Internal Medicine
DX: J18.9 Pneumonia, unspecified organism (principal); F20.0 Paranoid schizophrenia; F41.9 Anxiety disorder, unspecified; F31.9 Bipolar disorder, unspecified; D70.2 Other drug-induced agranulocytosis; Z79.899 Other long term (current) drug therapy; Z88.8 Allergy status to other drugs, medicaments and biological substances

== ENCOUNTER 2017-04-12 20:15 | Observation (INO) | payer MEDICARE, MEDICAID ==
[~2017-04-12 20:15] MED LIST changes: +ARIP10TAB PO; +BENZ-52 PO; +BENZ0.5T PO; -BENZ1TA PO; -BENZ5TA PO; +CEFD300CAP PO; -COLA100C3 PO; +COLA100C5 PO; -DOCU100C PO; +DOCU100C16 PO; +GABA-282 PO; +MIRT15TA3 PO; +TRAZ50TA11 PO; -TRAZ50TA4 PO; +VENL75CA2 PO
--- NOTE | 2017-04-12 21:34 | HPEPDOC ---
General Date of Admission Apr 12, 2017 at 20:15 Other Providers NONE Attending Physician: EVELIN SALTER DO Chief Complaint The patient is a 52-year-old male admitted with a reason for visit of Elevated Heart Rate. Source: Patient Exam Limitations: Other (uncooperative) History of Present Illness 52-year-old male, history of psychosis, admitted to the mental health unit of [facility] as started having palpitations and EKG showed atrial flutter. He has no PCP. 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 Patient is very uncooperative and keeps on talking about some family killing by some person and insisted on talking to the [employer] and police only. Home Medications Scheduled Aripiprazole (Aripiprazole) 10 Mg Tab, 20 MG PO DAILY Aripiprazole (Aripiprazole) 10 Mg Tab, 20 MG PO QHS Aripiprazole (Aripiprazole) 10 Mg Tab, 20 MG PO BID for PSYCHOSIS Cefdinir (Cefdinir) 300 Mg Cap, 300 MG PO BID Gabapentin (Gabapentin) 300 Mg Cap, 600 MG PO BID@0900,1600 Haloperidol Decanoate (Haloperidol Decanoate) 100 Mg/Ml Soln, 50 MG IM Q14D for PSYCHOSIS Metoprolol Tartrate (Metoprolol Tartrate) 25 Mg Tab, 25 MG PO BID for ATRIAL FLUTTER Mirtazapine (Mirtazapine) 15 Mg Tab, 45 MG PO QHS for INSOMNIA Venlafaxine HCl (Venlafaxine HCl ER) 75 Mg Cap, 150 MG PO DAILY Venlafaxine HCl (Venlafaxine HCl ER) 75 Mg Cap, 150 MG PO BID for MOOD Scheduled PRN Mirtazapine (Mirtazapine) 15 Mg Tab, 45 MG PO QHS PRN for insomnia Allergies Coded Allergies: Loxapine (Verified Allergy, Mild, 01/21/13) Thiothixene (Verified Allergy, Mild, 01/21/13) Fluphenazine (Verified Allergy, Unknown, 09/12/15) UNKNOWN [place] (Verified Allergy, Unknown, UNKNOWN, 09/12/15) Meperidine (Verified Allergy, Unknown, UNKNOWN, 09/12/15) Phenothiazines (Verified Allergy, Unknown, UNKNOWN, 09/12/15) Thioridazine (Verified Allergy, Unknown, UNKNOWN, 09/12/15) Past Medical History Medical History None Surgical History None Review of Symptoms Other systems Unable to do due to uncooperativeness Physical Examination General Exam: Positive: Alert, No Acute Distress Eye Exam: Positive: Conjunctiva & lids normal, Negative: Sclera icteric ENT Exam: Positive: Atraumatic, Mucous membr. moist/pink Neck Exam: Negative: JVD, thyromegaly Chest Exam: Positive: Clear to auscultation, Normal air movement Heart Exam: Positive: Irregular Rhythm, Normal S1, Normal S2, Negative: Murmurs, Rubs Telemetry: Positive: Atrial fibrillation Abdomen Exam: Positive: Normal bowel sounds, Soft, Negative: Tenderness, Hepatospenomegaly Extremity Exam: Negative: Clubbing, Cyanosis, Edema Skin Exam: Positive: Nl turgor and temperature, Negative: Breakdown, Lesion Neuro Exam: Positive: Normal Speech Psych Exam: Positive: Other (agitated, uncooperative) Vital Signs Vital Signs Date Time Temp Pulse Resp B/P (MAP) Pulse Ox O2 Delivery O2 Flow Rate FiO2 04/12/17 21:50 97.5 101 18 106/69 (81) 94 Room Air Laboratory Data Labs 24H Vital Signs Date Time Temp Pulse Resp B/P (MAP) Pulse Ox O2 Delivery O2 Flow Rate FiO2 04/13/17 00:10 98.0 91 20 106/64 (78) 94 Room Air 04/12/17 21:50 97.5 101 18 106/69 (81) 94 Room Air Assessment/Plan 52-year-old male, in no past medical or surgical history presented to the mental health for psychosis and was consulted for hypertension and was found to be in atrial flutter. Problems (1) Atrial flutter Problem Text: As started Lopressor 25 mg twice a day for rate control, just to his coronary 00, so patient was started on aspirin 325 mg daily for anticoagulates and there is get echocardiogram, EKG and cardiac consult by daytime hospitalist in the morning (2) Schizoaffective disorder, depressive type Status: Acute Problem Text: Will consult mental health to manage schizoaffective disorder Plan / VTE VTE Prophylaxis Ordered?: Yes Plan Diet: Continue Current Activity: Continue Current Anticipated Discharge: Psych ANNIKA JIMENEZ MD Apr 12, 2017 21:34
[2017-04-12] MEDS ORDERED: METO25TA4 PO (21:40)
[2017-04-12] MEDS ORDERED: MIRT15TA3 PO (21:40)
[2017-04-12] MEDS ORDERED: HALO10AM IM (21:40)
[2017-04-12] MEDS ORDERED: VENL75CA2 PO (21:40)
[2017-04-12] MEDS ORDERED: ARIP10TAB PO (21:40)
[2017-04-12 21:50] VITALS: BP 106/69
[2017-04-13 00:10] VITALS: BP 106/64
[2017-04-13] MEDS ORDERED: GABAPENTIN 300 MG CAP PO ONE (03:00)
[2017-04-13 03:13] LABS: WHITE BLOOD COUNT 11.4 K/mm3 (4.0-10.0)
[2017-04-13 03:14] LABS: MEAN CORPUSCULAR HEMOGLOBIN 32.2 pg (27.0-33.0); MEAN CORPUSCULAR HGB CONC 34.9 g/dl (32.0-36.5); MEAN CORPUSCULAR VOLUME 92.1 fl (80.0-96.0); RED CELL DISTRIBUTION WIDTH 12.8 % (11.5-14.5)
[2017-04-13 03:36] LABS: ALBUMIN 3.2 GM/DL (3.2-5.2); ALKALINE PHOSPHATASE 57 U/L (45-117); ALT/SGPT 38 U/L (12-78); ANION GAP 7 MEQ/L (8-16); AST/SGOT 18 U/L (15-37); BILIRUBIN,TOTAL 0.3 MG/DL (0.2-1.0); BLOOD UREA NITROGEN 12 MG/DL (7-18); CALCIUM LEVEL 8.4 MG/DL (8.5-10.1); CARBON DIOXIDE LEVEL 26 MEQ/L (21-32); CHLORIDE LEVEL 106 MEQ/L (98-107); CREATININE FOR GFR 0.97 MG/DL (0.70-1.30); GLOMERULAR FILTRATION RATE > 60.0 (>56); GLUCOSE, FASTING 112 MG/DL (70-105); MAGNESIUM LEVEL 2.1 MG/DL (1.8-2.4); POTASSIUM SERUM 4.3 MEQ/L (3.5-5.1); SODIUM LEVEL 139 MEQ/L (136-145); TOTAL PROTEIN 7.2 GM/DL (6.4-8.2)
[2017-04-13] MEDS ORDERED: SLF 3 ML SYR IV PRN (04:00)
[2017-04-13 04:12] VITALS: BP 105/60
[2017-04-13] MEDS: SLF 3 ML SYR IV SCH ×3 (06:34→20:51)
[2017-04-13 07:30] VITALS: BP 113/69
[2017-04-13] MEDS: ASPIRIN 325 MG TAB PO SCH (08:24)
[2017-04-13] MEDS: METOPROLOL TART 25 MG TABLET PO SCH ×2 (08:24→20:51)
--- NOTE | 2017-04-13 08:47 | IPN ---
DATE: 04/13/2017 ATTENDING PHYSICIAN: Dr. Danna Espinoza HISTORY: The patient was transferred from inpatient mental health unit ([facility]) for elevated heart rate. The case was discussed with Dr. Rosado who was the admitting physician transferring the patient from [facility] to the progressive care unit (PCU) for presumed atrial flutter. Apparently, he was recently transferred from [facility] to acute care for a left lower lobe pneumonia. He only spent a day on acute care, pulled his IVs out, and was transferred back to [facility] on oral Omnicef. I do not see where this has been continued. Apparently, he was transferred over for presumed atrial flutter. Unfortunately, there is no EKG in the chart and no one in the PCU can come across it for me. I see in the order history it was done last night. In discussion with Dr. Rosado, he thought the patient had sinus tachycardia. In any case, the patient has had no arrhythmias. Since arriving to the PCU, he has been in strict sinus rhythm and sinus tachycardia. There is no atrial flutter or atrial fibrillation or other atrial arrhythmias. PHYSICAL EXAMINATION: 113/69. Pulse 93. Respiratory rate 18. 98% oxygen saturation. 98.6 degrees. General Appearance: He is lying in bed. He answers questions, but says he is sleepy and just wants to be left alone. Lungs: Clear. Heart: Regular rhythm. Without murmur. Abdomen: Soft. Nontender. No masses. No peripheral edema. Thyroid nonpalpable. Neurologic Exam: Nonfocal. LABS: White count 11.4, hemoglobin 13.5. Electrolytes unremarkable. Potassium 4.3. Magnesium 2.1. IMPRESSION: 1. Question atrial flutter. He has strict sinus rhythm and sinus tachycardia since arriving to the PCU. I cannot find his EKG that led to his transfer. Per discussion, presumably just showed sinus tachycardia. Echocardiogram has been ordered. Aspirin should be sufficient. I do not think he needs to be anticoagulated as I am skeptical that he has any atrial arrhythmias. 2. Recent left lower lobe pneumonia. I think he needs to restart his antibiotic. Omnicef has been reordered. 3. Tobacco abuse. He was using a nicotine 21 mg per day patch which he should continue. 4. Various psychiatric difficulties with paranoid schizophrenia and major depressive disorder. He was on Clozaril. This was discontinued when he developed his pneumonia. I do not see where he is currently on any psychiatric medications. Will consult psychiatry as he is currently untreated as far as his schizophrenia. He had been on some gabapentin 600 mg twice daily, but I do not see where he is continued on that either. Psychiatry needs to help sort out his psychiatric medications while he is on acute care. Should his telemetry continue to show sinus rhythm, I think he could be transferred back to inpatient mental health tomorrow.
[2017-04-13] MEDS: NICOTINE 21MG/24HR 1 EA TRANSDERMAL TD SCH (09:00)
[2017-04-13 09:33] LABS: FREE T4 1.16 NG/DL (0.76-1.46)
--- NOTE | 2017-04-13 10:17 | MHCRPDOC ---
[facility] Consultation Consultation DATE OF CONSULTATION: 04/13/17 CONSULTATION REQUESTED BY: Dr. Chavez REASON FOR CONSULTATION: Medication recommendations. RELEVANT HISTORY: The patient is a 52-year-old man who was transferred from the originally from the inpatient mental health for concern for sepsis, he was returned to inpatient mental health, however, he developed tachycardia and was subsequently brought to the medical floor for observation. He was on a long hospitalization for chronic paranoia and schizophrenia. He had been tried on Clozaril with appropriate monitoring. He was improving but had a sudden decompensation with the aforementioned concerns asepsis. When he was met with today he described that he was concerned about his health and was understandably curious about what his disposition would be when he left. The majority of the information related to his psychosocial and extensive history is present in the chart in his previous mental health admission, please refer. MENTAL STATUS EXAMINATION: General: Good hygiene Speech: Nonpressured Thought processes: Coherent, mildly circumstantial Thought content: rife with paranoid ideation that "someone killed my family" Abstract reasoning, and computation: Impaired Description of associations: Loose Description of abnormal or psychotic thoughts: Denies suicidal or homicidal ideation. Denies auditory or visual hallucinations, does not appear to be responding to internal stimuli. Judgment: Limited Insight: Limited Orientation: Alert and orientated Recent and remote memory: Intact Attention span and concentration: Intact Fund of knowledge: Adequate Mood: "Okay" Affect: Flat/blunted DIAGNOSIS: 1. Chronic paranoid schizophrenia. PLAN: 1. Recommend restart of the patient's venlafaxine 150 mg twice a day and Abilify 20 mg twice a day as well as mirtazapine 45 mg daily at bedtime when necessary. 2. No need for sitter at this time, patient is not a acute danger to himself or others Vital Signs Vital Signs Date Time Temp Pulse Resp B/P (MAP) Pulse Ox O2 Delivery O2 Flow Rate FiO2 04/13/17 08:24 92 110/74 04/13/17 07:30 98.6 18 98 Room Air Laboratory Data 24H Labs Laboratory Tests 2 04/13/17 02:58: Anion Gap 7L, Glomerular Filtration Rate > 60.0, Blood Urea Nitrogen 12, Creatinine 0.97, Sodium Level 139, Potassium Level 4.3, Chloride Level 106, Carbon Dioxide Level 26, Calcium Level 8.4L, Aspartate Amino Transf (AST/SGOT) 18, Alanine Aminotransferase (ALT/SGPT) 38, Total Creatine Kinase 209, Alkaline Phosphatase 57, Total Bilirubin 0.3, Total Protein 7.2, Albumin 3.2, Magnesium Level 2.1, Creatine Kinase MB 1.0, Creatine Kinase MB Relative Index 0.47, Troponin I < 0.02, Albumin/Globulin Ratio 0.80L, Thyroid Stimulating Hormone ( TSH) < 0.005L, Free Thyroxine 1.16 Home Medications Current Medications Current Medications Aspirin (Aspirin) 325 mg DAILY PO Last administered on 04/13/17 08:24; Start 04/13/17 at 09:00; Stop 05/13/17 at 08:59 Metoprolol Tartrate (Lopressor) 25 mg BID PO Last administered on 04/13/17 08: 24; Start 04/13/17 at 09:00; Stop 05/13/17 at 08:59 Nicotine (Nicoderm Cq 21mg) 1 patch DAILY TD Last administered on 04/13/17 09: 00; Start 04/13/17 at 09:00; Stop 05/13/17 at 08:59 Sodium Chloride (Saline Lock Flush) 2 ml ASDIRECTED PRN IV SEE LABEL COMMENTS; Start 04/13/17 at 04:00; Stop 05/13/17 at 03:59 Sodium Chloride (Saline Lock Flush) 2 ml SLF IV Last administered on 04/13/17 06:34; Start 04/13/17 at 06:00; Stop 05/13/17 at 05:59 Scheduled Aripiprazole (Aripiprazole) 10 Mg Tab, 20 MG PO DAILY Aripiprazole (Aripiprazole) 10 Mg Tab, 20 MG PO QHS Aripiprazole (Aripiprazole) 10 Mg Tab, 20 MG PO BID for PSYCHOSIS Cefdinir (Cefdinir) 300 Mg Cap, 300 MG PO BID Gabapentin (Gabapentin) 300 Mg Cap, 600 MG PO BID@0900,1600 Haloperidol Decanoate (Haloperidol Decanoate) 100 Mg/Ml Soln, 50 MG IM Q14D for PSYCHOSIS Metoprolol Tartrate (Metoprolol Tartrate) 25 Mg Tab, 25 MG PO BID for ATRIAL FLUTTER Mirtazapine (Mirtazapine) 15 Mg Tab, 45 MG PO QHS for INSOMNIA Venlafaxine HCl (Venlafaxine HCl ER) 75 Mg Cap, 150 MG PO DAILY Venlafaxine HCl (Venlafaxine HCl ER) 75 Mg Cap, 150 MG PO BID for MOOD Scheduled PRN Mirtazapine (Mirtazapine) 15 Mg Tab, 45 MG PO QHS PRN for insomnia Allergies Coded Allergies: Loxapine (Verified Allergy, Mild, 01/21/13) Thiothixene (Verified Allergy, Mild, 01/21/13) Fluphenazine (Verified Allergy, Unknown, 09/12/15) UNKNOWN [place] (Verified Allergy, Unknown, UNKNOWN, 09/12/15) Meperidine (Verified Allergy, Unknown, UNKNOWN, 09/12/15) Phenothiazines (Verified Allergy, Unknown, UNKNOWN, 09/12/15) Thioridazine (Verified Allergy, Unknown, UNKNOWN, 09/12/15) GME ATTESTATION My preceptor for this patient encounter was physically present in the building during the encounter and was fully available. As needed, all aspects of the patient interview, examination, medical decision making process, and medical care plan development were reviewed and approved by the preceptor. Preceptor is aware and concurs with the plan as stated in the body of this note and will attest to such by his/her cosignature. HEATHER PRAJAPATI DO Apr 13, 2017 10:15
--- NOTE | 2017-04-13 11:27 | MHIPNPDOC ---
[facility] Progress Note Progress Note DATE OF SERVICE: 04/13/17 Pt. can be started on Ativan 1 mg. Po Q6hrs. PRN for anxiety. Beverley Garibay Vital Signs Vital Signs Date Time Temp Pulse Resp B/P (MAP) Pulse Ox O2 Delivery O2 Flow Rate FiO2 04/13/17 08:24 92 110/74 04/13/17 07:30 98.6 18 98 Room Air Laboratory Data 24H Labs Laboratory Tests 2 04/13/17 02:58: Anion Gap 7L, Glomerular Filtration Rate > 60.0, Blood Urea Nitrogen 12, Creatinine 0.97, Sodium Level 139, Potassium Level 4.3, Chloride Level 106, Carbon Dioxide Level 26, Calcium Level 8.4L, Aspartate Amino Transf (AST/SGOT) 18, Alanine Aminotransferase (ALT/SGPT) 38, Total Creatine Kinase 209, Alkaline Phosphatase 57, Total Bilirubin 0.3, Total Protein 7.2, Albumin 3.2, Magnesium Level 2.1, Creatine Kinase MB 1.0, Creatine Kinase MB Relative Index 0.47, Troponin I < 0.02, Albumin/Globulin Ratio 0.80L, Thyroid Stimulating Hormone ( TSH) < 0.005L, Free Thyroxine 1.16 04/13/17 11:00: CBC/BMP Laboratory Tests 04/13/17 02:58 Red Blood Count 4.77, Mean Corpuscular Volume 92.1, Mean Corpuscular Hemoglobin 32.2, Mean Corpuscular Hemoglobin Concent 34.9, Red Cell Distribution Width 12.8 , Calcium Level 8.4 L, Aspartate Amino Transf (AST/SGOT) 18, Alanine Aminotransferase (ALT/SGPT) 38, Total Creatine Kinase 209, Alkaline Phosphatase 57, Total Bilirubin 0.3, Total Protein 7.2, Albumin 3.2 Current Medications Current Medications Aspirin (Aspirin) 325 mg DAILY PO Last administered on 04/13/17 08:24; Start 04/13/17 at 09:00; Stop 05/13/17 at 08:59 Metoprolol Tartrate (Lopressor) 25 mg BID PO Last administered on 04/13/17 08: 24; Start 04/13/17 at 09:00; Stop 05/13/17 at 08:59 Nicotine (Nicoderm Cq 21mg) 1 patch DAILY TD Last administered on 04/13/17 09: 00; Start 04/13/17 at 09:00; Stop 05/13/17 at 08:59 Sodium Chloride (Saline Lock Flush) 2 ml ASDIRECTED PRN IV SEE LABEL COMMENTS; Start 04/13/17 at 04:00; Stop 05/13/17 at 03:59 Sodium Chloride (Saline Lock Flush) 2 ml SLF IV Last administered on 04/13/17t 06:34; Start 04/13/17 at 06:00; Stop 05/13/17 at 05:59 Allergies Coded Allergies: Loxapine (Verified Allergy, Mild, 01/21/13) Thiothixene (Verified Allergy, Mild, 01/21/13) Fluphenazine (Verified Allergy, Unknown, 09/12/15) UNKNOWN Cable (Verified Allergy, Unknown, UNKNOWN, 09/12/15) Meperidine (Verified Allergy, Unknown, UNKNOWN, 09/12/15) Phenothiazines (Verified Allergy, Unknown, UNKNOWN, 09/12/15) Thioridazine (Verified Allergy, Unknown, UNKNOWN, 09/12/15) BEVERLEY GARIBAY MD Apr 13, 2017 11:27
[2017-04-13] MEDS ORDERED: LORazepam 1 MG TAB PO PRN (11:30)
[2017-04-13] MEDS: VENLAFAXINE **XR** 75MG CAPSULE PO SCH ×2 (12:26→20:50)
[2017-04-13] MEDS: ARIPiprazole 10 MG TAB PO SCH ×2 (12:26→20:50)
[2017-04-13 12:34] VITALS: BP 130/77
[2017-04-13 15:35] VITALS: BP 140/62
[2017-04-13] MEDS: GABAPENTIN 300 MG CAP PO SCH (16:12)
[2017-04-13] MEDS ORDERED: CEFDINIR 300 MG CAP (OMNICEF) PO ONE (17:00)
[2017-04-13 19:36] VITALS: BP 128/68
[2017-04-13] MEDS: CEFDINIR 300 MG CAP (OMNICEF) PO SCH (20:50)
[2017-04-13] MEDS ORDERED: VENLAFAXINE 37.5 MG TAB PO SCH (21:00)
[2017-04-13] MEDS ORDERED: GABAPENTIN 300 MG CAP PO SCH (21:00)
[2017-04-13] MEDS ORDERED: MIRTAZAPINE 15 MG TAB PO SCH (21:00)
[2017-04-14 00:27] VITALS: BP 102/68
[2017-04-14 04:04] VITALS: BP 108/68
[2017-04-14 05:12] LABS: MEAN CORPUSCULAR HGB CONC 34.9 g/dl (32.0-36.5); MEAN CORPUSCULAR VOLUME 91.6 fl (80.0-96.0); RED CELL DISTRIBUTION WIDTH 13.2 % (11.5-14.5); WHITE BLOOD COUNT 11.8 K/mm3 (4.0-10.0)
[2017-04-14 05:28] LABS: ALBUMIN/GLOBULIN RATIO 0.75 (1.00-1.93); ALKALINE PHOSPHATASE 52 U/L (45-117); ALT/SGPT 30 U/L (12-78); ANION GAP 7 MEQ/L (8-16); AST/SGOT 14 U/L (15-37); BILIRUBIN,TOTAL 0.4 MG/DL (0.2-1.0); BLOOD UREA NITROGEN 10 MG/DL (7-18); CALCIUM LEVEL 8.6 MG/DL (8.5-10.1); CARBON DIOXIDE LEVEL 27 MEQ/L (21-32); CHLORIDE LEVEL 105 MEQ/L (98-107); CREATININE FOR GFR 0.86 MG/DL (0.70-1.30); GLOMERULAR FILTRATION RATE > 60.0 (>56); GLUCOSE, FASTING 104 MG/DL (70-105); POTASSIUM SERUM 3.7 MEQ/L (3.5-5.1); SODIUM LEVEL 139 MEQ/L (136-145)
[2017-04-14] MEDS: SLF 3 ML SYR IV SCH ×2 (06:00→14:00)
[2017-04-14 07:20] VITALS: BP 112/67
[2017-04-14] MEDS: NICOTINE 21MG/24HR 1 EA TRANSDERMAL TD SCH (08:32)
[2017-04-14] MEDS: CEFDINIR 300 MG CAP (OMNICEF) PO SCH (08:33)
[2017-04-14] MEDS: VENLAFAXINE **XR** 75MG CAPSULE PO SCH (08:33)
[2017-04-14] MEDS: ARIPiprazole 10 MG TAB PO SCH (08:34)
[2017-04-14] MEDS: GABAPENTIN 300 MG CAP PO SCH ×2 (08:34→16:05)
[2017-04-14] MEDS: ASPIRIN 325 MG TAB PO SCH (08:35)
[2017-04-14 08:36] VITALS: BP 112/67
[2017-04-14] MEDS: METOPROLOL TART 25 MG TABLET PO SCH (08:36)
--- NOTE | 2017-04-14 12:13 | DSES ---
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 HISTORY: Albino Dailey was transferred from the inpatient mental health unit due to tachycardia. An EKG had been performed which showed sinus tachycardia, but because the interpretation also mentioned the possibility of atrial flutter, he ended up getting transferred to progressive care unit. HOSPITAL COURSE: The patient was in sinus tachycardia on admission, remained in strict sinus rhythm and sinus tachycardia for duration of his hospitalization. He had no atrial fibrillation or flutter at all. Reevaluation of admission EKG suggested sinus tachycardia. In summary, there was no evidence the patient ever had any atrial flutter. The patient had routine lab work done. His TSH is suppressed. It has been normal in the past. I tripped his psychiatric illness. I did a free T4 and free T3. They are both normal, ruling out hyperthyroidism. CBC was normal. His psychiatric medicines were restarted under advice from Dr. Tapia. The patient had a recent left lower lobe pneumonia and was on Omnicef upon transfer. This was continued as well. DISPOSITION: Patient was transferred back to inpatient mental health unit. I spoke with Dr. Tate. She will see the patient later today. He was medically clear. His medicines currently are: - Remeron 45 mg at bedtime - cefdinir 300 mg twice a day - Neurontin 300 mg at bedtime, 600 mg at 9 a.m. and 4 p.m. - Ativan 1 mg every 6 hours as needed for anxiety - aspirin 325 mg daily - nicotine 21 mg per day patch - Abilify 20 mg twice a day - venlafaxine 150 mg twice a day - Lopressor 25 mg twice a day ACTIVITY: As tolerated. DIET: No added salt diet. Further psychiatric care through the inpatient mental health unit.
[2017-04-14] MEDS ORDERED: VENL150C43 PO (15:21)
== END 2017-04-14 14:30 ==
LOC: M PCU 20:15 → INTOOBSV 20:15
PROVIDERS: ADMIT Internal Medicine; ATTEND Family Medicine
DX: R00.0 Tachycardia, unspecified (principal); F25.1 Schizoaffective disorder, depressive type; Z79.82 Long term (current) use of aspirin; Z79.899 Other long term (current) drug therapy; Z88.8 Allergy status to other drugs, medicaments and biological substances
CPT/HCPCS: 36415; 80053; 82550; 82553; 83735; 84439; 84443; 84481; 84484; 85027; 99233; G0378

== ENCOUNTER 2020-06-20 07:46 | Emergency (ER) | payer MEDICARE, MEDICAID ==
[~2020-06-20] VITALS: Ht 172.7 cm; Wt 110.5 kg
[~2020-06-20 07:46] MED LIST changes: -/HALO5TAB OR; -ARIP10TAB PO; +ARIP1TAB PO; +ARIP1TAB10 PO; -BENZ0.5T PO; +BENZ0.5T23 PO; +GABA-1171 PO; -GABA-279 PO; -GABA-282 PO; -GABA-283 PO; +GABA-843 PO; +GABA-845 PO; -GABA600T PO; +GABA600T4 PO; +HALO10AM IM; +HALO10TA2 PO; +HALO1TAB21 OR; +INVE234I IM; +LORA1TAB4 PO; +METO25TA4 PO; +NICO21PAT TD; +TRAZ-252 PO; -TRAZ50TA11 PO; +VENL150C43 PO
[2020-06-20 07:47] VITALS: BP 143/81
== END 2020-06-20 08:52 | disposition left against medical advice (07) ==
LOC: M ED 07:46
DX: Z53.21 Procedure and treatment not carried out due to patient leaving prior to being seen by health care provider (principal)

== ENCOUNTER 2020-06-26 12:27 | Inpatient (IN) | payer MEDICARE, MEDICAID ==
[~2020-06-26] VITALS: Ht 175.3 cm; Wt 102.4 kg
[2020-06-26] MEDS ORDERED: NICOTINE 21MG/24HR 1 EA TRANSDERMAL TD ONE (13:15)
[2020-06-26 13:23] LABS: HEMATOCRIT 43.2 % (42.0-52.0); HEMOGLOBIN 14.8 g/dl (13.5-17.5); MEAN CORPUSCULAR HGB CONC 34.3 g/dl (32.0-36.5); MEAN CORPUSCULAR VOLUME 93.5 fl (80.0-96.0); PLATELET COUNT, AUTOMATED 219 10^3/uL (150-450); RED BLOOD COUNT 4.62 10^6/uL (4.30-6.10); WHITE BLOOD COUNT 10.1 10^3/uL (4.0-10.0)
[2020-06-26 14:07] LABS: ACETAMINOPHEN LEVEL < 2.0 UG/ML (10.0-30.0); ALBUMIN 3.5 GM/DL (3.2-5.2); ALT/SGPT 73 U/L (12-78); BILIRUBIN,DIRECT 0.2 MG/DL (0.0-0.2); BILIRUBIN,TOTAL 0.7 MG/DL (0.2-1.0); BLOOD UREA NITROGEN 13 MG/DL (7-18); CALCIUM LEVEL 8.8 MG/DL (8.5-10.1); CARBON DIOXIDE LEVEL 27 MEQ/L (21-32); CHLORIDE LEVEL 109 MEQ/L (98-107); CREATININE FOR GFR 0.99 MG/DL (0.70-1.30); ETHYL ALCOHOL (ETHANOL) < 0.003 % (0.000-0.010); GLOMERULAR FILTRATION RATE > 60.0 (>56); GLUCOSE, FASTING 96 MG/DL (70-100); SALICYLATE LEVEL < 1.7 MG/DL (5.0-30.0); SODIUM LEVEL 141 MEQ/L (136-145); TOTAL PROTEIN 6.6 GM/DL (6.4-8.2)
[2020-06-26 17:59] LABS: AMPHETAMINES LEVEL URINE NEGATIVE (NEGATIVE); BARBITURATES URINE NEGATIVE (NEGATIVE); BENZODIAZEPINES URINE NEGATIVE (NEGATIVE); CANNABINOIDS URINE NEGATIVE (NEGATIVE); COCAINE METABOLITE URINE NEGATIVE (NEGATIVE); METHADONE URINE NEGATIVE (NEGATIVE); OPIATES URINE NEGATIVE (NEGATIVE); PHENCYCLIDINE URINE NEGATIVE (NEGATIVE)
[2020-06-26] MEDS ORDERED: OLANZapine ORAL DISINTEGRATING TAB 5MG PO PRN (18:45)
[2020-06-26] MEDS ORDERED: MOM 30ML SUSPENSION UDC PO PRN (18:45)
[2020-06-26] MEDS ORDERED: traZODone 50 MG TAB PO PRN (18:45)
[2020-06-26] MEDS ORDERED: ARIP1TAB10 PO (19:03)
[2020-06-26] MEDS ORDERED: LEXA5TAB13 PO (19:03)
[2020-06-26] MEDS ORDERED: BUSP5TA PO (19:03)
[2020-06-26] MEDS ORDERED: BENZ0.5T23 PO (19:03)
[2020-06-26] MEDS ORDERED: HALO5TA PO (19:03)
[2020-06-26] MEDS ORDERED: MED REC COMMENT (19:04)
[2020-06-27] MEDS: NICOTINE 21MG/24HR 1 EA TRANSDERMAL TD SCH (09:00)
--- NOTE | 2020-06-27 09:50 | MHHPEPDOC ---
[facility] History & Physical History and Physical DATE OF ADMISSION: Jun 26, 2020 at 18:32 Subjective HPI: Albino presents today for concerns regarding his paranoia. Patient was tangential, nonlinear, and quite paranoid and was unable to provide a reason for his visit other than that people are stealing his stuff. He also proposed having the door open during the entire visit and presented to the ER reportedly after not sleeping for several months. Patient was notably psychotic and paranoid and was brought in out of an abundance of caution. MEDICATIONS: He reports that he has not been taking any psychiatric medication. His previous medications included Abilify and Haldol. MEDICAL HISTORY: Patient had multiple inpatient admissions in 2017 and tried Clozaril. He was sent to [place] for long-term care and has previously followed up with [facility] but does not appear to be at this time. FAMILY HISTORY: Patients family history is unknown. SOCIAL HISTORY - OCCUPATION: His occupation in unknown. Patient is assumed to be disabled. SOCIAL HISTORY - LIVING SITUATION: His social history seems to have no change. TESTS: Patients substance use history was negative, and urine-toxicology hasnt been an issue on this admission or prior admissions. Objective Appearance: Hygeine is fair. Behavior: Looking at various unseen others. Cognition: Impaired secondary thought process. Thought Form: Nonlinear and tangential. Paranoid. Judgement: Poor Judgement. Insight: Poor insight. Assessment F25.0 Schizoaffective disorder, bipolar type Plan Patient has schizoaffective disorder, bipolar type, and his current episode is psychotic. Try Haldol since patient has done well on it when he previously used it. Patient will not take Zyprexa. Patient will likely need treatment over objection if he does not take his medication consistently. Treatment objectives are altered thoughts to noncompliance. Length of stay is estimated to be 5 to 7 days. Vital Signs Vital Signs Date Time Temp Pulse Resp B/P (MAP) Pulse Ox O2 Delivery O2 Flow Rate FiO2 06/27/20 08:38 Room Air 06/26/20 20:44 97.7 94 18 143/89 (107) 96 Laboratory Data 24H Labs Laboratory Tests 2 06/26/20 13:03: Nucleated Red Blood Cells % (auto) 0.0, Anion Gap 5L, Glomerular Filtration Rate > 60.0, Calcium Level 8.8, Total Bilirubin 0.7, Direct Bilirubin 0.2, Aspartate Amino Transf (AST/SGOT) 61H, Alanine Aminotransferase (ALT/SGPT) 73, Alkaline Phosphatase 57, Total Protein 6.6, Albumin 3.5, Albumin/Globulin Ratio 1.1, Thyroid Stimulating Hormone (TSH) 2.050, Salicylates Level < 1.7L, Urine Opiates Screen NEGATIVE, Urine Methadone Screen NEGATIVE, Acetaminophen Level < 2.0L, Urine Barbiturates Screen NEGATIVE, Urine Phencyclidine Screen NEGATIVE, Urine Amphetamines Screen NEGATIVE, Urine Benzodiazepines Screen NEGATIVE, Urine Cocaine Metabolite Screen NEGATIVE, Urine Cannabinoids Screen NEGATIVE, Ethyl Alcohol Level < 0.003 CBC/BMP Laboratory Tests 06/26/20 13:03 Medications Scheduled Aripiprazole (Aripiprazole) 15 Mg Tablet, 15 MG PO DAILY, (Reported) Benztropine Mesylate (Benztropine Mesylate) 0.5 Mg Tablet, 0.5 MG PO QHS, (Reported) Buspirone HCl (Buspirone HCl) 5 Mg Tablet, 5 MG PO TID, (Reported) Escitalopram Oxalate (Lexapro) 5 Mg Tablet, 5 MG PO DAILY, (Reported) Haloperidol (Haloperidol) 5 Mg Tablet, 5 MG PO BID, (Reported) Miscellaneous Medications [Med Rec Comment] , (Reported) MED LIST OBTAINED FROM PHARMACY Allergies Coded Allergies: Phenothiazines (Verified Allergy, Unknown, 06/26/20) fluphenazine (Verified Allergy, Unknown, 06/26/20) lithium (Verified Allergy, Unknown, 06/26/20) loxapine (Verified Allergy, Unknown, 06/26/20) meperidine (Verified Allergy, Unknown, 06/26/20) thioridazine (Verified Allergy, Unknown, 06/26/20) thiothixene (Verified Allergy, Unknown, 06/26/20) A-FIB/CHADSVASC A-FIB History Current/History of A-Fib/PAF?: No HEATHER PRAJAPATI DO Jun 27, 2020 09:50
--- NOTE | 2020-06-27 14:37 | HPEPDOC ---
General Date of Admission Jun 26, 2020 at 18:32 Date of Service: Jun 27, 2020 Attending Physician: ODALIS LYMAN MD Chief Complaint The patient is a 55-year-old male admitted with a reason for visit of Sxhizophrenia. Source: Patient, RN/MD Exam Limitations: Clinical conditions (Psychotic) History of Present Illness 55 yo M with schizophrenia who was admitted to the [facility] on 06/26/2020 expressing concern that they are people who seek to harm him and in florid psychosis to the extent that they could not take an adequate history. He denied being on medication at the time. Workup was notable for grossly normal CBC, BMP and tox screen. Medicine is consulted for physical evaluation. Was unable to perform ROS due to AMS. Home Medications Scheduled Aripiprazole (Aripiprazole) 15 Mg Tablet, 15 MG PO DAILY, (Reported) Benztropine Mesylate (Benztropine Mesylate) 0.5 Mg Tablet, 0.5 MG PO QHS, (Reported) Buspirone HCl (Buspirone HCl) 5 Mg Tablet, 5 MG PO TID, (Reported) Escitalopram Oxalate (Lexapro) 5 Mg Tablet, 5 MG PO DAILY, (Reported) Haloperidol (Haloperidol) 5 Mg Tablet, 5 MG PO BID, (Reported) Miscellaneous Medications [Med Rec Comment] , (Reported) MED LIST OBTAINED FROM PHARMACY Allergies Coded Allergies: Phenothiazines (Verified Allergy, Unknown, 06/26/20) fluphenazine (Verified Allergy, Unknown, 06/26/20) lithium (Verified Allergy, Unknown, 06/26/20) loxapine (Verified Allergy, Unknown, 06/26/20) meperidine (Verified Allergy, Unknown, 06/26/20) thioridazine (Verified Allergy, Unknown, 06/26/20) thiothixene (Verified Allergy, Unknown, 06/26/20) Past Medical History Medical History Schizophrenia A-FIB/CHADSVASC A-FIB History Current/History of A-Fib/PAF?: No Current PO Anticoag Therapy: No Age/Risk Factor Scoring CHADSVASC: CHADSVASC Response (Comments) Value Age Risk Factor Age < 65 years old 0 Gender Risk Factor Male 0 Hx of CHF No 0 Hx of HTN No 0 Hx of Stroke/TIA/or VTE No 0 Hx of Diabetes No 0 Hx of Vascular Disease No 0 Total 0 Treatment Treatment ordered: NONE Reason Anticoagulant not given: Not indicated/[id number] Physical Examination General Exam: Positive: Alert, No Acute Distress, Other (obese) Eye Exam: Positive: Conjunctiva & lids normal, EOMI; Negative: Sclera icteric ENT Exam: Positive: Atraumatic, Mucous membr. moist/pink Neuro Exam: Positive: Normal Gait, Normal Speech Psych Exam: Negative: Mental status NL, Oriented x 3 Vital Signs Vital Signs Date Time Temp Pulse Resp B/P (MAP) Pulse Ox O2 Delivery O2 Flow Rate FiO2 06/27/20 08:38 Room Air 06/26/20 20:44 97.7 94 18 143/89 (107) 96 Assessment/Plan 55 yo M with schizophrenia who is admitted to the [facility] with alexandrea psychosis. At this time, physical examination and investigations are stable. Internal medicine will sign off at this time. Plan: Schizophrenia with psychosis -Plan per primary psychiatry team Plan / VTE VTE Prophylaxis Ordered?: No VTE Exclusion Mechanical Proph: Low Risk for VTE VTE Exclusion Pharmacological: At Low Risk for VTE ODALIS LYMAN MD Jun 27, 2020 14:13
[2020-06-27 18:00] VITALS: BP 140/84
[2020-06-27] MEDS: haloperidoL 5 MG TAB PO PRN (22:25)
[2020-06-28 05:24] VITALS: BP 126/73
--- NOTE | 2020-06-28 08:53 | MHIPNPDOC ---
[facility] Progress Note Progress Note DATE OF SERVICE: 06/28/20 Subjective HPI: Albino presents today for concerns regarding his mental health. Offered to meet with patient today, but the patient refused to meet with me, saying nope. He has been running around the unit pacing quite frequently, looking quite paranoid and bizarre, speaking very little and speaking to very few people. He generally does not engage well, appears quite isolated to his room. Objective Appearance: Appears to be stated age. appears to be having his eyes dart across the room, looking at various unseen others. Behavior: patient says nope as he looks at his provider. walks by, pacing, head down. Perception: paranoid. Judgement: Poor. Insight: Poor. Assessment F25.9 Schizoaffective disorder, unspecified Plan Offered to meet with patient today, but the patient refused to meet with me, saying nope. He has been running around the unit pacing quite frequently, looking quite paranoid and bizarre, speaking very little and speaking to very few people. He generally does not engage well, appears quite isolated to his room. Continue with Haldol offering, may need tx over objection vs more intensive tx. He has had a fairly complex hx in the past and has not been taking medications for some time. Vital Signs Vital Signs Date Time Temp Pulse Resp B/P (MAP) Pulse Ox O2 Delivery O2 Flow Rate FiO2 06/28/20 05:24 97.1 107 16 126/73 (90) Room Air 06/26/20 20:44 96 Current Medications Current Medications Medications (Trade) Dose Ordered Sig/Jovany Route PRN Reason Start Time Stop Time Status Last Admin Dose Admin Acetaminophen (Tylenol Tab) 650 mg Q6HP PRN PO HEADACHE or DISCOMFORT 06/26/20 18:45 Al Hydrox/Mg Hydrox/Simethicone (Mylanta) 30 ml Q4HP PRN PO HEARTBURN/INDIGESTION 06/26/20 18:45 Haloperidol (Haldol) 5 mg Q4HP PRN PO AGITATION 06/27/20 22:15 06/27/20 22:25 Home Med (Med Rec Complete!) ASDIRECTED XX 06/26/20 19:15 06/26/20 19:05 DC Magnesium Hydroxide (Milk Of Magnesia) 30 ml DAILYPRN PRN PO CONSTIPATION 06/26/20 18:45 Nicotine (Nicoderm Cq 21mg) 1 patch DAILY TD 06/27/20 09:00 06/27/20 09:00 Olanzapine (ZyPREXA ZYDIS) 5 mg Q4HP PRN PO AGITATION 06/26/20 18:45 06/27/20 22:14 DC Trazodone HCl (Desyrel) 50 mg QHSP PRN PO INSOMNIA 06/26/20 18:45 Allergies Coded Allergies: Phenothiazines (Verified Allergy, Unknown, 06/26/20) fluphenazine (Verified Allergy, Unknown, 06/26/20) lithium (Verified Allergy, Unknown, 06/26/20) loxapine (Verified Allergy, Unknown, 06/26/20) meperidine (Verified Allergy, Unknown, 06/26/20) thioridazine (Verified Allergy, Unknown, 06/26/20) thiothixene (Verified Allergy, Unknown, 06/26/20) HEATHER PRAJAPATI DO Jun 28, 2020 08:53
[2020-06-28] MEDS: NICOTINE 21MG/24HR 1 EA TRANSDERMAL TD SCH (09:22)
[2020-06-28] MEDS: haloperidoL 5 MG TAB PO SCH ×2 (09:22→20:39)
[2020-06-29 06:41] VITALS: BP 98/54
--- NOTE | 2020-06-29 07:49 | MHIPNPDOC ---
[facility] Progress Note Progress Note DATE OF SERVICE: 06/29/20 Subjective HPI: Patient is met with today. He is less bizarre, although somewhat paranoid. The patient doesnt remember this provider from yesterday. Her report says hes taking the Haldol but doesnt like it. He reports that he wants to try something else and wants a newer med. Hes unusual and asks various strange questions but eventually consents to taking Vraylar. Objective Behavior: Cooperative with good eye contact. Paranoid and psychotic. Engaged. Cognition: Cognition impaired secondary to thought process. Thought Form: Tangential at times. Nonlinear at other times. Thought Content: No evidence of aggressive or homicidal ideation. No thoughts of self harm. No evidence of suicidal ideation. No evidence of delusions. Judgement: Poor judgment. Insight: Poor insight. Assessment F25.9 Schizoaffective disorder, unspecified Plan Change to Vraylar 1.5 mg nightly. Vital Signs Vital Signs Date Time Temp Pulse Resp B/P (MAP) Pulse Ox O2 Delivery O2 Flow Rate FiO2 06/29/20 06:41 98.3 89 14 98/54 (69) 97 Room Air Current Medications Current Medications Medications (Trade) Dose Ordered Sig/Jovany Route PRN Reason Start Time Stop Time Status Last Admin Dose Admin Acetaminophen (Tylenol Tab) 650 mg Q6HP PRN PO HEADACHE or DISCOMFORT 06/26/20 18:45 Al Hydrox/Mg Hydrox/Simethicone (Mylanta) 30 ml Q4HP PRN PO HEARTBURN/INDIGESTION 06/26/20 18:45 Haloperidol (Haldol) 5 mg BID PO 06/28/20 09:00 06/28/20 20:39 Haloperidol (Haldol) 5 mg Q4HP PRN PO AGITATION 06/27/20 22:15 06/27/20 22:25 Home Med (Med Rec Complete!) ASDIRECTED XX 06/26/20 19:15 06/26/20 19:05 DC Magnesium Hydroxide (Milk Of Magnesia) 30 ml DAILYPRN PRN PO CONSTIPATION 06/26/20 18:45 Nicotine (Nicoderm Cq 21mg) 1 patch DAILY TD 06/27/20 09:00 06/28/20 09:22 Olanzapine (ZyPREXA ZYDIS) 5 mg Q4HP PRN PO AGITATION 06/26/20 18:45 06/27/20 22:14 DC Trazodone HCl (Desyrel) 50 mg QHSP PRN PO INSOMNIA 06/26/20 18:45 Allergies Coded Allergies: Phenothiazines (Verified Allergy, Unknown, 06/26/20) fluphenazine (Verified Allergy, Unknown, 06/26/20) lithium (Verified Allergy, Unknown, 06/26/20) loxapine (Verified Allergy, Unknown, 06/26/20) meperidine (Verified Allergy, Unknown, 06/26/20) thioridazine (Verified Allergy, Unknown, 06/26/20) thiothixene (Verified Allergy, Unknown, 06/26/20) HEATHER PRAJAPATI DO Jun 29, 2020 07:48
[2020-06-29] MEDS: haloperidoL 5 MG TAB PO SCH (08:50)
[2020-06-29] MEDS: NICOTINE 21MG/24HR 1 EA TRANSDERMAL TD SCH (08:50)
[2020-06-29 16:21] VITALS: BP 131/70
[2020-06-29] MEDS: haloperidoL 5 MG TAB PO PRN (22:56)
[2020-06-30 06:56] VITALS: BP 133/64
[2020-06-30] MEDS: CARIPRAZINE 1.5MG CAPSULE (VRAYLAR) PO SCH (09:00)
[2020-06-30] MEDS: haloperidoL 5 MG TAB PO PRN (09:19)
[2020-06-30] MEDS: NICOTINE 21MG/24HR 1 EA TRANSDERMAL TD SCH (09:19)
--- NOTE | 2020-06-30 10:41 | MHIPNPDOC ---
[facility] Progress Note Progress Note DATE OF SERVICE: 06/30/20 Subjective HPI: Albino presents today for medication management. However, he declined after asking what I want to meet about. The patient walked by, still paranoid. Hes had no notable incidences and generally has been isolated. Objective Appearance: Fair hygiene. Looking at various unseen others. Appears to be stated age. Behavior: patient says no, thanks. appears Paranoid and walks by. Thought Form: Genrally linear. Judgement: Poor. Insight: Poor. Assessment F25.9 Schizoaffective disorder, unspecified Plan Continue Vraylar 1.5 mg daily. Continue to monitor. Potentially might need to go back to Haldol as he does not appear to be quite amenable at this time. Vital Signs Vital Signs Date Time Temp Pulse Resp B/P (MAP) Pulse Ox O2 Delivery O2 Flow Rate FiO2 06/30/20 06:56 97.2 77 12 133/64 (87) Room Air 06/29/20 16:21 97 Current Medications Current Medications Medications (Trade) Dose Ordered Sig/Jovany Route PRN Reason Start Time Stop Time Status Last Admin Dose Admin Acetaminophen (Tylenol Tab) 650 mg Q6HP PRN PO HEADACHE or DISCOMFORT 06/26/20 18:45 Al Hydrox/Mg Hydrox/Simethicone (Mylanta) 30 ml Q4HP PRN PO HEARTBURN/INDIGESTION 06/26/20 18:45 Cariprazine (Vraylar) 1.5 mg DAILY PO 06/30/20 09:00 Haloperidol (Haldol) 5 mg BID PO 06/28/20 09:00 06/29/20 15:44 DC 06/29/20 08:50 Haloperidol (Haldol) 5 mg Q4HP PRN PO AGITATION 06/27/20 22:15 06/30/20 09:19 Haloperidol (Haldol) 10 mg BID PO 06/29/20 21:00 06/29/20 16:02 DC Home Med (Med Rec Complete!) ASDIRECTED XX 06/26/20 19:15 06/26/20 19:05 DC Magnesium Hydroxide (Milk Of Magnesia) 30 ml DAILYPRN PRN PO CONSTIPATION 06/26/20 18:45 Nicotine (Nicoderm Cq 21mg) 1 patch DAILY TD 06/27/20 09:00 06/30/20 09:19 Olanzapine (ZyPREXA ZYDIS) 5 mg Q4HP PRN PO AGITATION 06/26/20 18:45 06/27/20 22:14 DC Trazodone HCl (Desyrel) 50 mg QHSP PRN PO INSOMNIA 06/26/20 18:45 Allergies Coded Allergies: Phenothiazines (Verified Allergy, Unknown, 06/26/20) fluphenazine (Verified Allergy, Unknown, 06/26/20) lithium (Verified Allergy, Unknown, 06/26/20) loxapine (Verified Allergy, Unknown, 06/26/20) meperidine (Verified Allergy, Unknown, 06/26/20) thioridazine (Verified Allergy, Unknown, 06/26/20) thiothixene (Verified Allergy, Unknown, 06/26/20) HEATHER PRAJAPATI DO Jun 30, 2020 10:41
[2020-06-30 18:08] VITALS: BP 120/68
[2020-07-01] MEDS: CARIPRAZINE 1.5MG CAPSULE (VRAYLAR) PO SCH (08:27)
[2020-07-01] MEDS: NICOTINE 21MG/24HR 1 EA TRANSDERMAL TD SCH (08:28)
[2020-07-01 18:00] VITALS: BP 119/80
[2020-07-01] MEDS: haloperidoL 5 MG TAB PO PRN (20:24)
[2020-07-02] MEDS: haloperidoL 5 MG TAB PO PRN ×2 (06:23→20:36)
[2020-07-02 06:30] VITALS: BP 119/78
[2020-07-02] MEDS: CARIPRAZINE 1.5MG CAPSULE (VRAYLAR) PO SCH (07:33)
[2020-07-02] MEDS: NICOTINE 21MG/24HR 1 EA TRANSDERMAL TD SCH (07:33)
[2020-07-02 18:00] VITALS: BP 149/79
[2020-07-03] MEDS: haloperidoL 5 MG TAB PO PRN ×3 (07:19→21:39)
[2020-07-03] MEDS: CARIPRAZINE 1.5MG CAPSULE (VRAYLAR) PO SCH (08:05)
[2020-07-03] MEDS: NICOTINE 21MG/24HR 1 EA TRANSDERMAL TD SCH (08:05)
--- NOTE | 2020-07-03 10:13 | MHIPNPDOC ---
[facility] Progress Note Progress Note DATE OF SERVICE: 07/03/20 Subjective HPI: Albino presents today for concerns regarding his act of echoing provider while he was speaking to another patient. Patient is isolative sometimes, but engages at times being somewhat paranoid and preoccupied. MEDICATIONS: He had unusually declined to meet about medications. Objective Appearance: Fair hygiene. Behavior: Paranoid. Preoccupied. Mimicking previous activities. Affect: Paranoid. Does appear to respond on seeing others. Anxious. Cognition: Unable to assess. Judgement: Poor. Insight: Poor. Assessment F25.9 Schizoaffective disorder, unspecified Plan Continue Cariprazine and likely increase to full effect. Vital Signs Vital Signs Date Time Temp Pulse Resp B/P (MAP) Pulse Ox O2 Delivery O2 Flow Rate FiO2 07/03/20 09:27 Room Air 07/02/20 18:00 98.0 114 18 149/79 (102) 07/02/20 06:30 94 Current Medications Current Medications Medications (Trade) Dose Ordered Sig/Jovany Route PRN Reason Start Time Stop Time Status Last Admin Dose Admin Acetaminophen (Tylenol Tab) 650 mg Q6HP PRN PO HEADACHE or DISCOMFORT 06/26/20 18:45 Al Hydrox/Mg Hydrox/Simethicone (Mylanta) 30 ml Q4HP PRN PO HEARTBURN/INDIGESTION 06/26/20 18:45 Cariprazine (Vraylar) 1.5 mg DAILY PO 06/30/20 09:00 07/03/20 08:05 Haloperidol (Haldol) 5 mg BID PO 06/28/20 09:00 06/29/20 15:44 DC 06/29/20 08:50 Haloperidol (Haldol) 5 mg Q4HP PRN PO AGITATION 06/27/20 22:15 07/03/20 07:19 Haloperidol (Haldol) 10 mg BID PO 06/29/20 21:00 06/29/20 16:02 DC Home Med (Med Rec Complete!) ASDIRECTED XX 06/26/20 19:15 06/26/20 19:05 DC Magnesium Hydroxide (Milk Of Magnesia) 30 ml DAILYPRN PRN PO CONSTIPATION 06/26/20 18:45 Nicotine (Nicoderm Cq 21mg) 1 patch DAILY TD 06/27/20 09:00 07/03/20 08:05 Olanzapine (ZyPREXA ZYDIS) 5 mg Q4HP PRN PO AGITATION 06/26/20 18:45 06/27/20 22:14 DC Trazodone HCl (Desyrel) 50 mg QHSP PRN PO INSOMNIA 06/26/20 18:45 Allergies Coded Allergies: Phenothiazines (Verified Allergy, Unknown, 06/26/20) fluphenazine (Verified Allergy, Unknown, 06/26/20) lithium (Verified Allergy, Unknown, 06/26/20) loxapine (Verified Allergy, Unknown, 06/26/20) meperidine (Verified Allergy, Unknown, 06/26/20) thioridazine (Verified Allergy, Unknown, 06/26/20) thiothixene (Verified Allergy, Unknown, 06/26/20) HEATHER PRAJAPATI DO Jul 03, 2020 10:13
[2020-07-03 16:44] VITALS: BP 136/80
[2020-07-03] MEDS: ACETAMINOPHEN TAB 650MG DOSE (2X325MG) PO PRN (21:04)
[2020-07-04] MEDS: CARIPRAZINE 1.5MG CAPSULE (VRAYLAR) PO SCH (09:01)
[2020-07-04] MEDS: NICOTINE 21MG/24HR 1 EA TRANSDERMAL TD SCH (09:01)
[2020-07-04] MEDS: haloperidoL 5 MG TAB PO PRN ×3 (12:05→22:50)
--- NOTE | 2020-07-04 14:47 | MHIPNPDOC ---
[facility] Progress Note Progress Note DATE OF SERVICE: 07/04/20 Subjective HPI: Patient was met with today and agreed to meet for a follow-up. He reports that he doesn't like Vraylar and Haldol but cant explain any reason why. The appointment was terminated early as he didnt provide any reasonable information. MEDICATIONS: He was distorted and tangential feeling that various medication were out to give him incest and erections. Objective Appearance: Well nourished. hygine fair. Well groomed. Appears to be stated age. Affect: paranoid. anxious. Speech: Spontaneous and Fluid. tangential. nearly incoherent. Cognition: appeared secondary thought process. Thought Form: non-linear. Judgement: Poor. Assessment F25.9 Schizoaffective disorder, unspecified Plan Continue Cariprazine increase to 3 mg nightly Vital Signs Vital Signs Date Time Temp Pulse Resp B/P (MAP) Pulse Ox O2 Delivery O2 Flow Rate FiO2 07/04/20 08:59 Room Air 07/03/20 16:44 97.1 107 18 136/80 (98) 07/02/20 06:30 94 Current Medications Current Medications Medications (Trade) Dose Ordered Sig/Jovany Route PRN Reason Start Time Stop Time Status Last Admin Dose Admin Acetaminophen (Tylenol Tab) 650 mg Q6HP PRN PO HEADACHE or DISCOMFORT 06/26/20 18:45 07/03/20 21:04 Al Hydrox/Mg Hydrox/Simethicone (Mylanta) 30 ml Q4HP PRN PO HEARTBURN/INDIGESTION 06/26/20 18:45 Cariprazine (Vraylar) 1.5 mg DAILY PO 06/30/20 09:00 07/04/20 09:01 Haloperidol (Haldol) 5 mg BID PO 06/28/20 09:00 06/29/20 15:44 DC 06/29/20 08:50 Haloperidol (Haldol) 5 mg Q4HP PRN PO AGITATION 06/27/20 22:15 07/04/20 12:05 Haloperidol (Haldol) 10 mg BID PO 06/29/20 21:00 06/29/20 16:02 DC Home Med (Med Rec Complete!) ASDIRECTED XX 06/26/20 19:15 06/26/20 19:05 DC Magnesium Hydroxide (Milk Of Magnesia) 30 ml DAILYPRN PRN PO CONSTIPATION 06/26/20 18:45 Nicotine (Nicoderm Cq 21mg) 1 patch DAILY TD 06/27/20 09:00 07/04/20 09:01 Olanzapine (ZyPREXA ZYDIS) 5 mg Q4HP PRN PO AGITATION 06/26/20 18:45 06/27/20 22:14 DC Trazodone HCl (Desyrel) 50 mg QHSP PRN PO INSOMNIA 06/26/20 18:45 Allergies Coded Allergies: Phenothiazines (Verified Allergy, Unknown, 06/26/20) fluphenazine (Verified Allergy, Unknown, 06/26/20) lithium (Verified Allergy, Unknown, 06/26/20) loxapine (Verified Allergy, Unknown, 06/26/20) meperidine (Verified Allergy, Unknown, 06/26/20) thioridazine (Verified Allergy, Unknown, 06/26/20) thiothixene (Verified Allergy, Unknown, 06/26/20) HEATHER PRAJAPATI DO Jul 04, 2020 14:47
[2020-07-04 16:15] VITALS: BP 132/75
[2020-07-04] MEDS: ACETAMINOPHEN TAB 650MG DOSE (2X325MG) PO PRN (18:35)
[2020-07-05] MEDS: ACETAMINOPHEN TAB 650MG DOSE (2X325MG) PO PRN ×2 (03:26→12:58)
[2020-07-05] MEDS: NICOTINE 21MG/24HR 1 EA TRANSDERMAL TD SCH (08:12)
[2020-07-05] MEDS: CARIPRAZINE 3MG CAPSULE (VRAYLAR) PO SCH (08:12)
--- NOTE | 2020-07-05 09:44 | MHIPNPDOC ---
[facility] Progress Note Progress Note DATE OF SERVICE: 07/05/20 Subjective HPI: Albino presents today for his schizoaffective disorder, bipolar type. Patient was much more amenable, sat down to meet with the physician, and reports he is open to going to [facility]. He is still somewhat bizarre and intrusive, but he is more amenable to treatment and more thankful. He is still somewhat distorted but much more reasonable today. Objective Appearance: Hygiene fair. . Affect: Less paranoid. More reactive, less flat. Speech: More fluid, less mute. Cognition: Alert, Attentive, and Oriented to person, place, time. Thought Form: Linear and goal directed. Judgement: Slightly improved. Insight: Slightly improved. Assessment F25.0 Schizoaffective disorder, bipolar type Plan Continue Cariprazine 3 mg daily. Will plan for [facility]. Patient reports he has no home to go to at this time. Vital Signs Vital Signs Date Time Temp Pulse Resp B/P (MAP) Pulse Ox O2 Delivery O2 Flow Rate FiO2 07/04/20 16:15 97.2 89 16 132/75 (94) 07/04/20 08:59 Room Air 07/02/20 06:30 94 Current Medications Current Medications Medications (Trade) Dose Ordered Sig/Jovany Route PRN Reason Start Time Stop Time Status Last Admin Dose Admin Acetaminophen (Tylenol Tab) 650 mg Q6HP PRN PO HEADACHE or DISCOMFORT 06/26/20 18:45 07/05/20 03:26 Al Hydrox/Mg Hydrox/Simethicone (Mylanta) 30 ml Q4HP PRN PO HEARTBURN/INDIGESTION 06/26/20 18:45 Cariprazine (Vraylar) 1.5 mg DAILY PO 06/30/20 09:00 07/04/20 15:13 DC 07/04/20 09:01 Cariprazine (Vraylar) 3 mg DAILY PO 07/05/20 09:00 07/05/20 08:12 Haloperidol (Haldol) 5 mg BID PO 06/28/20 09:00 06/29/20 15:44 DC 06/29/20 08:50 Haloperidol (Haldol) 5 mg Q4HP PRN PO AGITATION 06/27/20 22:15 07/04/20 22:50 Haloperidol (Haldol) 10 mg BID PO 06/29/20 21:00 06/29/20 16:02 DC Home Med (Med Rec Complete!) ASDIRECTED XX 06/26/20 19:15 06/26/20 19:05 DC Magnesium Hydroxide (Milk Of Magnesia) 30 ml DAILYPRN PRN PO CONSTIPATION 06/26/20 18:45 Nicotine (Nicoderm Cq 21mg) 1 patch DAILY TD 06/27/20 09:00 07/05/20 08:12 Olanzapine (ZyPREXA ZYDIS) 5 mg Q4HP PRN PO AGITATION 06/26/20 18:45 06/27/20 22:14 DC Trazodone HCl (Desyrel) 50 mg QHSP PRN PO INSOMNIA 06/26/20 18:45 Allergies Coded Allergies: Phenothiazines (Verified Allergy, Unknown, 06/26/20) fluphenazine (Verified Allergy, Unknown, 06/26/20) lithium (Verified Allergy, Unknown, 06/26/20) loxapine (Verified Allergy, Unknown, 06/26/20) meperidine (Verified Allergy, Unknown, 06/26/20) thioridazine (Verified Allergy, Unknown, 06/26/20) thiothixene (Verified Allergy, Unknown, 06/26/20) HEATHER PRAJAPATI DO Jul 05, 2020 09:44
[2020-07-05 15:57] VITALS: BP 119/71
[2020-07-05] MEDS: haloperidoL 5 MG TAB PO PRN (20:57)
[2020-07-06] MEDS: NICOTINE 21MG/24HR 1 EA TRANSDERMAL TD SCH (08:05)
[2020-07-06] MEDS: CARIPRAZINE 3MG CAPSULE (VRAYLAR) PO SCH (08:05)
--- NOTE | 2020-07-06 09:28 | MHIPNPDOC ---
[facility] Progress Note Progress Note DATE OF SERVICE: 07/06/20 Subjective HPI: Patient refused to meet for appointment. He wanted to meet with a nurse practitioner and not a doctor, did not give any rationale. He was quite paranoid and much more accusatory than normal. Objective Appearance: Well groomed. Well nourished. Appears to be stated age. Behavior: Guarded and walks away. Affect: Irritable. Anxious. Speech: No signs of any tremors. Spontaneous and Fluid. Normal rate. Normal volume. Perception: Paranoid. Judgement: Poor. Insight: Poor. Assessment F25.9 Schizoaffective disorder, unspecified Plan Continue Vrylar 3 mg. Hope to see improvement. His presentation today was unusual, he does have alternating mood. Vital Signs Vital Signs Date Time Temp Pulse Resp B/P (MAP) Pulse Ox O2 Delivery O2 Flow Rate FiO2 07/05/20 15:57 98.5 100 20 119/71 (87) 07/05/20 10:27 Room Air 07/02/20 06:30 94 Current Medications Current Medications Medications (Trade) Dose Ordered Sig/Jovany Route PRN Reason Start Time Stop Time Status Last Admin Dose Admin Acetaminophen (Tylenol Tab) 650 mg Q6HP PRN PO HEADACHE or DISCOMFORT 06/26/20 18:45 07/05/20 12:58 Al Hydrox/Mg Hydrox/Simethicone (Mylanta) 30 ml Q4HP PRN PO HEARTBURN/INDIGESTION 06/26/20 18:45 Cariprazine (Vraylar) 1.5 mg DAILY PO 06/30/20 09:00 07/04/20 15:13 DC 07/04/20 09:01 Cariprazine (Vraylar) 3 mg DAILY PO 07/05/20 09:00 07/06/20 08:05 Haloperidol (Haldol) 5 mg BID PO 06/28/20 09:00 06/29/20 15:44 DC 06/29/20 08:50 Haloperidol (Haldol) 5 mg Q4HP PRN PO AGITATION 06/27/20 22:15 07/05/20 20:57 Haloperidol (Haldol) 10 mg BID PO 06/29/20 21:00 06/29/20 16:02 DC Home Med (Med Rec Complete!) ASDIRECTED XX 06/26/20 19:15 06/26/20 19:05 DC Magnesium Hydroxide (Milk Of Magnesia) 30 ml DAILYPRN PRN PO CONSTIPATION 06/26/20 18:45 Nicotine (Nicoderm Cq 21mg) 1 patch DAILY TD 06/27/20 09:00 07/06/20 08:05 Olanzapine (ZyPREXA ZYDIS) 5 mg Q4HP PRN PO AGITATION 06/26/20 18:45 06/27/20 22:14 DC Trazodone HCl (Desyrel) 50 mg QHSP PRN PO INSOMNIA 06/26/20 18:45 Allergies Coded Allergies: Phenothiazines (Verified Allergy, Unknown, 06/26/20) fluphenazine (Verified Allergy, Unknown, 06/26/20) lithium (Verified Allergy, Unknown, 06/26/20) loxapine (Verified Allergy, Unknown, 06/26/20) meperidine (Verified Allergy, Unknown, 06/26/20) thioridazine (Verified Allergy, Unknown, 06/26/20) thiothixene (Verified Allergy, Unknown, 06/26/20) HEATHER PRAJAPATI DO Jul 06, 2020 09:28
[2020-07-06] MEDS: haloperidoL 5 MG TAB PO PRN ×2 (14:46→20:33)
[2020-07-06 18:16] VITALS: BP 127/78
[2020-07-06] MEDS: MAALOX 30 ML SUSP *UDC PO PRN (23:12)
[2020-07-07] MEDS: haloperidoL 5 MG TAB PO PRN ×3 (00:38→20:12)
[2020-07-07] MEDS: MAALOX 30 ML SUSP *UDC PO PRN (03:13)
[2020-07-07] MEDS: NICOTINE 21MG/24HR 1 EA TRANSDERMAL TD SCH (08:13)
[2020-07-07] MEDS: CARIPRAZINE 3MG CAPSULE (VRAYLAR) PO SCH (08:13)
--- NOTE | 2020-07-07 10:08 | MHIPNPDOC ---
[facility] Progress Note Progress Note DATE OF SERVICE: 07/07/20 Subjective HPI: patient met with today, Initially wanted a court hearing, however when asked where he would go, he reported he had nowhere to go but wants to go to [facility]. He redacted his want for a court hearing quickly thereafter, still some bizarre but more amenable today. Objective Appearance: Well groomed. Well nourished. Appears to be stated age. Behavior: Guarded and walks away. Affect: Irritable. Anxious. Speech: No signs of any tremors. Spontaneous and Fluid. Normal rate. Normal volume. Perception: Paranoid. Judgement: Poor. Insight: Poor. Assessment F25.9 Schizoaffective disorder, unspecified Plan Continue Vrylar 3 mg. continue with [facility] referral Vital Signs Vital Signs Date Time Temp Pulse Resp B/P (MAP) Pulse Ox O2 Delivery O2 Flow Rate FiO2 07/06/20 18:16 97.3 97 18 127/78 (94) 07/05/20 10:27 Room Air 07/02/20 06:30 94 Current Medications Current Medications Medications (Trade) Dose Ordered Sig/Jovany Route PRN Reason Start Time Stop Time Status Last Admin Dose Admin Acetaminophen (Tylenol Tab) 650 mg Q6HP PRN PO HEADACHE or DISCOMFORT 06/26/20 18:45 07/05/20 12:58 Al Hydrox/Mg Hydrox/Simethicone (Mylanta) 30 ml Q4HP PRN PO HEARTBURN/INDIGESTION 06/26/20 18:45 07/07/20 03:13 Cariprazine (Vraylar) 1.5 mg DAILY PO 06/30/20 09:00 07/04/20 15:13 DC 07/04/20 09:01 Cariprazine (Vraylar) 3 mg DAILY PO 07/05/20 09:00 07/07/20 08:13 Haloperidol (Haldol) 5 mg BID PO 06/28/20 09:00 06/29/20 15:44 DC 06/29/20 08:50 Haloperidol (Haldol) 5 mg Q4HP PRN PO AGITATION 06/27/20 22:15 07/07/20 06:08 Haloperidol (Haldol) 10 mg BID PO 06/29/20 21:00 06/29/20 16:02 DC Home Med (Med Rec Complete!) ASDIRECTED XX 06/26/20 19:15 06/26/20 19:05 DC Magnesium Hydroxide (Milk Of Magnesia) 30 ml DAILYPRN PRN PO CONSTIPATION 06/26/20 18:45 Nicotine (Nicoderm Cq 21mg) 1 patch DAILY TD 06/27/20 09:00 07/07/20 08:13 Olanzapine (ZyPREXA ZYDIS) 5 mg Q4HP PRN PO AGITATION 06/26/20 18:45 06/27/20 22:14 DC Trazodone HCl (Desyrel) 50 mg QHSP PRN PO INSOMNIA 06/26/20 18:45 Allergies Coded Allergies: Phenothiazines (Verified Allergy, Unknown, 06/26/20) fluphenazine (Verified Allergy, Unknown, 06/26/20) lithium (Verified Allergy, Unknown, 06/26/20) loxapine (Verified Allergy, Unknown, 06/26/20) meperidine (Verified Allergy, Unknown, 06/26/20) thioridazine (Verified Allergy, Unknown, 06/26/20) thiothixene (Verified Allergy, Unknown, 06/26/20) HEATHER PRAJAPATI DO Jul 07, 2020 10:08
[2020-07-07 16:13] VITALS: BP 136/80
[2020-07-08 06:24] VITALS: BP 140/81
[2020-07-08] MEDS: CARIPRAZINE 3MG CAPSULE (VRAYLAR) PO SCH (08:07)
[2020-07-08] MEDS: NICOTINE 21MG/24HR 1 EA TRANSDERMAL TD SCH (08:08)
[2020-07-08] MEDS: haloperidoL 5 MG TAB PO SCH ×2 (15:27→20:33)
[2020-07-08 16:12] VITALS: BP 142/78
[2020-07-08] MEDS: BACITRACIN OINTMENT 30GM TUBE TOP SCH ×2 (20:33→21:45)
[2020-07-08] MEDS: MAALOX 30 ML SUSP *UDC PO PRN (22:31)
[2020-07-09] MEDS: NICOTINE 21MG/24HR 1 EA TRANSDERMAL TD SCH (08:41)
[2020-07-09] MEDS: haloperidoL 5 MG TAB PO SCH ×3 (08:41→20:48)
[2020-07-09] MEDS: BACITRACIN OINTMENT 30GM TUBE TOP SCH ×2 (08:41→20:50)
[2020-07-09] MEDS: CARIPRAZINE 3MG CAPSULE (VRAYLAR) PO SCH (08:41)
[2020-07-09 16:18] VITALS: BP 116/74
[2020-07-09] MEDS: traZODone 50 MG TAB PO SCH (20:50)
[2020-07-10] MEDS: MAALOX 30 ML SUSP *UDC PO PRN (01:22)
[2020-07-10] MEDS: CARIPRAZINE 3MG CAPSULE (VRAYLAR) PO SCH (08:03)
[2020-07-10] MEDS: NICOTINE 21MG/24HR 1 EA TRANSDERMAL TD SCH (08:03)
[2020-07-10] MEDS: haloperidoL 5 MG TAB PO SCH ×3 (08:03→22:22)
[2020-07-10] MEDS: BACITRACIN OINTMENT 30GM TUBE TOP SCH ×2 (08:42→22:23)
[2020-07-10 17:40] VITALS: BP 130/70
[2020-07-10] MEDS: traZODone 50 MG TAB PO SCH (21:00)
[2020-07-11] MEDS: CARIPRAZINE 3MG CAPSULE (VRAYLAR) PO SCH (08:01)
[2020-07-11] MEDS: haloperidoL 5 MG TAB PO SCH ×3 (08:01→20:15)
[2020-07-11] MEDS: BACITRACIN OINTMENT 30GM TUBE TOP SCH ×2 (08:02→20:17)
[2020-07-11] MEDS: NICOTINE 21MG/24HR 1 EA TRANSDERMAL TD SCH (08:02)
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
[2020-07-11 18:04] VITALS: BP 140/74
[2020-07-11] MEDS: traZODone 50 MG TAB PO SCH (20:17)
[2020-07-12] MEDS: BACITRACIN OINTMENT 30GM TUBE TOP SCH ×2 (08:01→20:16)
[2020-07-12] MEDS: NICOTINE 21MG/24HR 1 EA TRANSDERMAL TD SCH (08:01)
[2020-07-12] MEDS: CARIPRAZINE 3MG CAPSULE (VRAYLAR) PO SCH (08:01)
[2020-07-12] MEDS: haloperidoL 5 MG TAB PO SCH ×3 (08:01→19:58)
--- NOTE | 2020-07-12 09:56 | MHIPNPDOC ---
[facility] Progress Note Progress Note DATE OF SERVICE: 07/12/20 Subjective HPI: Patient is met briefly today, he reports that he had requested a court hearing, but has nowhere to go and has no intentions of wanting to leave as he has nowhere to go. Objective Thought Form: Somewhat tangential and nonlinear. Judgement: Baseline. Insight: Baseline. Assessment F20.9 Schizophrenia, unspecified Plan Continue with Haldol. Patient likely will consent to AOT at this time as he is open to the treatment and would likely benefit from it due to his long history of mental health. Vital Signs Vital Signs Date Time Temp Pulse Resp B/P (MAP) Pulse Ox O2 Delivery O2 Flow Rate FiO2 07/12/20 09:48 Room Air 07/11/20 18:04 97.9 100 18 140/74 (96) Current Medications Current Medications Medications (Trade) Dose Ordered Sig/Jovany Route PRN Reason Start Time Stop Time Status Last Admin Dose Admin Acetaminophen (Tylenol Tab) 650 mg Q6HP PRN PO HEADACHE or DISCOMFORT 06/26/20 18:45 07/05/20 12:58 Al Hydrox/Mg Hydrox/Simethicone (Mylanta) 30 ml Q4HP PRN PO HEARTBURN/INDIGESTION 06/26/20 18:45 07/10/20 01:22 Bacitracin (Bacitracin Oint) 1 dose BID TOP 07/08/20 21:00 07/11/20 08:02 Cariprazine (Vraylar) 1.5 mg DAILY PO 06/30/20 09:00 07/04/20 15:13 DC 07/04/20 09:01 Cariprazine (Vraylar) 3 mg DAILY PO 07/05/20 09:00 07/12/20 08:01 Haloperidol (Haldol) 5 mg BID PO 06/28/20 09:00 06/29/20 15:44 DC 06/29/20 08:50 Haloperidol (Haldol) 5 mg Q4HP PRN PO AGITATION 06/27/20 22:15 07/08/20 11:37 DC 07/07/20 20:12 Haloperidol (Haldol) 5 mg TID PO 07/08/20 16:00 07/12/20 08:01 Haloperidol (Haldol) 10 mg BID PO 06/29/20 21:00 06/29/20 16:02 DC Home Med (Med Rec Complete!) ASDIRECTED XX 06/26/20 19:15 06/26/20 19:05 DC Magnesium Hydroxide (Milk Of Magnesia) 30 ml DAILYPRN PRN PO CONSTIPATION 06/26/20 18:45 Nicotine (Nicoderm Cq 21mg) 1 patch DAILY TD 06/27/20 09:00 07/12/20 08:01 Olanzapine (ZyPREXA ZYDIS) 5 mg Q4HP PRN PO AGITATION 06/26/20 18:45 06/27/20 22:14 DC Trazodone HCl (Desyrel) 50 mg QHS PO 07/09/20 21:00 Trazodone HCl (Desyrel) 50 mg QHSP PRN PO INSOMNIA 06/26/20 18:45 07/09/20 13:23 DC Allergies Coded Allergies: Phenothiazines (Verified Allergy, Unknown, 06/26/20) fluphenazine (Verified Allergy, Unknown, 06/26/20) lithium (Verified Allergy, Unknown, 06/26/20) loxapine (Verified Allergy, Unknown, 06/26/20) meperidine (Verified Allergy, Unknown, 06/26/20) thioridazine (Verified Allergy, Unknown, 06/26/20) thiothixene (Verified Allergy, Unknown, 06/26/20) HEATHER PRAJAPATI DO Jul 12, 2020 09:56
[2020-07-12 15:27] VITALS: BP 144/62
[2020-07-12] MEDS: traZODone 50 MG TAB PO SCH (20:14)
[2020-07-13] MEDS ORDERED: haloperidoL 5 MG TAB PO ONE (05:00)
[2020-07-13 06:26] VITALS: BP 131/91
[2020-07-13] MEDS: BACITRACIN OINTMENT 30GM TUBE TOP SCH ×2 (08:03→21:00)
[2020-07-13] MEDS: haloperidoL 5 MG TAB PO SCH ×3 (08:04→21:00)
[2020-07-13] MEDS: CARIPRAZINE 3MG CAPSULE (VRAYLAR) PO SCH (08:04)
[2020-07-13] MEDS: NICOTINE 21MG/24HR 1 EA TRANSDERMAL TD SCH (08:05)
--- NOTE | 2020-07-13 10:27 | MHIPNPDOC ---
[facility] Progress Note Progress Note DATE OF SERVICE: 07/13/20 Subjective HPI: The patient is met with today briefly, he is really upset when he is redirected after attempting to be inappropriate with one other female hospitalist, he's upset and angry at 1st being vulgar with this provider, and a nurse. He later apologizes during the day but is still fairly distorted and psychotic. He has been asking for a large front of Haldol consistently. Objective General: poor Speech: rapid Thought processes: tangential Thought content: psychotic delusions Abstract reasoning, and computation: impaired Description of associations: imparied Description of abnormal or psychotic thoughts:Unclear, appears to have psychotic processes going on. Judgment: poor Insight: poor Orientation: Alert and orientated 3 Recent and remote memory: Intact Attention span and concentration: impaired secondary to thought process Fund of knowledge: unable to determine Mood: "sorry" Affect: flat, little reactivity Assessment schizophrenia Plan Will continue Cariprizine 3 mg nightly and Haldol 5 mg TID, making some progress Vital Signs Vital Signs Date Time Temp Pulse Resp B/P (MAP) Pulse Ox O2 Delivery O2 Flow Rate FiO2 07/13/20 06:26 97.6 100 20 131/91 (104) Room Air Current Medications Current Medications Medications (Trade) Dose Ordered Sig/Jovany Route PRN Reason Start Time Stop Time Status Last Admin Dose Admin Acetaminophen (Tylenol Tab) 650 mg Q6HP PRN PO HEADACHE or DISCOMFORT 06/26/20 18:45 07/05/20 12:58 Al Hydrox/Mg Hydrox/Simethicone (Mylanta) 30 ml Q4HP PRN PO HEARTBURN/INDIGESTION 06/26/20 18:45 07/10/20 01:22 Bacitracin (Bacitracin Oint) 1 dose BID TOP 07/08/20 21:00 07/13/20 08:03 Cariprazine (Vraylar) 1.5 mg DAILY PO 06/30/20 09:00 07/04/20 15:13 DC 07/04/20 09:01 Cariprazine (Vraylar) 3 mg DAILY PO 07/05/20 09:00 07/13/20 08:04 Haloperidol (Haldol) 5 mg BID PO 06/28/20 09:00 06/29/20 15:44 DC 06/29/20 08:50 Haloperidol (Haldol) 5 mg Q4HP PRN PO AGITATION 06/27/20 22:15 07/08/20 11:37 DC 07/07/20 20:12 Haloperidol (Haldol) 5 mg TID PO 07/08/20 16:00 07/13/20 08:04 Haloperidol (Haldol) 10 mg BID PO 06/29/20 21:00 06/29/20 16:02 DC Home Med (Med Rec Complete!) ASDIRECTED XX 06/26/20 19:15 06/26/20 19:05 DC Magnesium Hydroxide (Milk Of Magnesia) 30 ml DAILYPRN PRN PO CONSTIPATION 06/26/20 18:45 Nicotine (Nicoderm Cq 21mg) 1 patch DAILY TD 06/27/20 09:00 07/13/20 08:05 Olanzapine (ZyPREXA ZYDIS) 5 mg Q4HP PRN PO AGITATION 06/26/20 18:45 06/27/20 22:14 DC Trazodone HCl (Desyrel) 50 mg QHS PO 07/09/20 21:00 Trazodone HCl (Desyrel) 50 mg QHSP PRN PO INSOMNIA 06/26/20 18:45 07/09/20 13:23 DC Allergies Coded Allergies: Phenothiazines (Verified Allergy, Unknown, 06/26/20) fluphenazine (Verified Allergy, Unknown, 06/26/20) lithium (Verified Allergy, Unknown, 06/26/20) loxapine (Verified Allergy, Unknown, 06/26/20) meperidine (Verified Allergy, Unknown, 06/26/20) thioridazine (Verified Allergy, Unknown, 06/26/20) thiothixene (Verified Allergy, Unknown, 06/26/20) HEATHER PRAJAPATI DO Jul 13, 2020 10:27
[2020-07-13] MEDS: MAALOX 30 ML SUSP *UDC PO PRN (14:48)
[2020-07-13 17:54] VITALS: BP 144/66
[2020-07-13] MEDS: traZODone 50 MG TAB PO SCH (21:00)
[2020-07-14 06:29] VITALS: BP 133/78
[2020-07-14] MEDS: BACITRACIN OINTMENT 30GM TUBE TOP SCH ×2 (08:00→20:20)
[2020-07-14] MEDS: CARIPRAZINE 3MG CAPSULE (VRAYLAR) PO SCH (08:01)
[2020-07-14] MEDS: NICOTINE 21MG/24HR 1 EA TRANSDERMAL TD SCH (08:01)
[2020-07-14] MEDS: haloperidoL 5 MG TAB PO SCH ×2 (08:01→20:19)
--- NOTE | 2020-07-14 10:17 | MHIPNPDOC ---
[facility] Progress Note Progress Note DATE OF SERVICE: 07/14/20 Subjective HPI: The patient is met with today, he appears to be preoccupied with his feet, stating that he needs cream for his feet. He does engage much other and appears quite distorted staying these "straight" Objective General: poor Speech: rapid Thought processes: tangential Thought content: psychotic delusions Abstract reasoning, and computation: impaired Description of associations: imparied Description of abnormal or psychotic thoughts:Unclear, appears to have psychotic processes going on. Judgment: poor Insight: poor Orientation: Alert and orientated 3 Recent and remote memory: Intact Attention span and concentration: impaired secondary to thought process Fund of knowledge: unable to determine Mood: "feet" Affect: flat, little reactivity Assessment schizophrenia Plan Plan is to change to pure haloperidol increase to 10 mg TID as he is continuing will discontinue other neuroleptic as he appears to not do well on it. Vital Signs Vital Signs Date Time Temp Pulse Resp B/P (MAP) Pulse Ox O2 Delivery O2 Flow Rate FiO2 07/14/20 06:29 96.9 88 12 133/78 (96) Room Air Current Medications Current Medications Medications (Trade) Dose Ordered Sig/Jovany Route PRN Reason Start Time Stop Time Status Last Admin Dose Admin Acetaminophen (Tylenol Tab) 650 mg Q6HP PRN PO HEADACHE or DISCOMFORT 06/26/20 18:45 07/05/20 12:58 Al Hydrox/Mg Hydrox/Simethicone (Mylanta) 30 ml Q4HP PRN PO HEARTBURN/INDIGESTION 06/26/20 18:45 07/13/20 14:48 Bacitracin (Bacitracin Oint) 1 dose BID TOP 07/08/20 21:00 07/14/20 08:00 Cariprazine (Vraylar) 1.5 mg DAILY PO 06/30/20 09:00 07/04/20 15:13 DC 07/04/20 09:01 Cariprazine (Vraylar) 3 mg DAILY PO 07/05/20 09:00 07/14/20 08:01 Haloperidol (Haldol) 5 mg BID PO 06/28/20 09:00 06/29/20 15:44 DC 06/29/20 08:50 Haloperidol (Haldol) 5 mg Q4HP PRN PO AGITATION 06/27/20 22:15 07/08/20 11:37 DC 07/07/20 20:12 Haloperidol (Haldol) 5 mg TID PO 07/08/20 16:00 07/14/20 08:01 Haloperidol (Haldol) 10 mg BID PO 06/29/20 21:00 06/29/20 16:02 DC Home Med (Med Rec Complete!) ASDIRECTED XX 06/26/20 19:15 06/26/20 19:05 DC Magnesium Hydroxide (Milk Of Magnesia) 30 ml DAILYPRN PRN PO CONSTIPATION 06/26/20 18:45 Nicotine (Nicoderm Cq 21mg) 1 patch DAILY TD 06/27/20 09:00 07/14/20 08:01 Olanzapine (ZyPREXA ZYDIS) 5 mg Q4HP PRN PO AGITATION 06/26/20 18:45 06/27/20 22:14 DC Trazodone HCl (Desyrel) 50 mg QHS PO 07/09/20 21:00 Trazodone HCl (Desyrel) 50 mg QHSP PRN PO INSOMNIA 06/26/20 18:45 07/09/20 13:23 DC Allergies Coded Allergies: Phenothiazines (Verified Allergy, Unknown, 06/26/20) fluphenazine (Verified Allergy, Unknown, 06/26/20) lithium (Verified Allergy, Unknown, 06/26/20) loxapine (Verified Allergy, Unknown, 06/26/20) meperidine (Verified Allergy, Unknown, 06/26/20) thioridazine (Verified Allergy, Unknown, 06/26/20) thiothixene (Verified Allergy, Unknown, 06/26/20) HEATHER PRAJAPATI DO Jul 14, 2020 10:17
[2020-07-14 18:26] VITALS: BP 130/75
[2020-07-14] MEDS: traZODone 50 MG TAB PO SCH (20:20)
[2020-07-15 06:27] VITALS: BP 107/71
[2020-07-15] MEDS: BACITRACIN OINTMENT 30GM TUBE TOP SCH ×2 (07:59→21:22)
[2020-07-15] MEDS: NICOTINE 21MG/24HR 1 EA TRANSDERMAL TD SCH (07:59)
[2020-07-15] MEDS: haloperidoL 5 MG TAB PO SCH ×3 (07:59→21:21)
[2020-07-15 18:00] VITALS: BP 116/74
[2020-07-15] MEDS: traZODone 50 MG TAB PO SCH (21:00)
[2020-07-16] MEDS: haloperidoL 5 MG TAB PO SCH ×3 (07:57→22:27)
[2020-07-16] MEDS: BACITRACIN OINTMENT 30GM TUBE TOP SCH ×2 (07:57→23:23)
[2020-07-16] MEDS: NICOTINE 21MG/24HR 1 EA TRANSDERMAL TD SCH (07:58)
[2020-07-16 17:41] VITALS: BP 123/60
[2020-07-16] MEDS: traZODone 50 MG TAB PO SCH (22:27)
[2020-07-17 06:00] VITALS: BP 112/66
[2020-07-17] MEDS: haloperidoL 5 MG TAB PO SCH (08:04)
[2020-07-17] MEDS: BACITRACIN OINTMENT 30GM TUBE TOP SCH ×2 (08:04→21:00)
[2020-07-17] MEDS: NICOTINE 21MG/24HR 1 EA TRANSDERMAL TD SCH (08:04)
--- NOTE | 2020-07-17 09:49 | MHIPNPDOC ---
[facility] Progress Note Progress Note DATE OF SERVICE: 07/17/20 Subjective HPI: Attempted to meet with patient, however, he was distorted and refused to meet. 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 Objective Appearance: Well groomed. Appears to be stated age. Well nourished. Behavior: More engaged. Affect: Flat. Motor: No gross motor abnormalities. Cognition: Impaired secondary thought process. Thought Form: Tangential. Thought Content: No evidence of aggressive or homicidal ideation. No thoughts of self harm. No evidence of suicidal ideation. Ideation confusing and paranoid. Judgement: Poor. Insight: Poor. Assessment F25.9 Schizoaffective disorder, unspecified Plan Continue Haldol 10 mg, appears to be making slow and steady progress with medication. Haldol could be a good outpatient medication even in a form of Haldol Decanoate. Vital Signs Vital Signs Date Time Temp Pulse Resp B/P (MAP) Pulse Ox O2 Delivery O2 Flow Rate FiO2 07/17/20 06:00 96.8 102 16 112/66 (81) 96 Room Air Current Medications Current Medications Medications (Trade) Dose Ordered Sig/Jovany Route PRN Reason Start Time Stop Time Status Last Admin Dose Admin Acetaminophen (Tylenol Tab) 650 mg Q6HP PRN PO HEADACHE or DISCOMFORT 06/26/20 18:45 07/05/20 12:58 Al Hydrox/Mg Hydrox/Simethicone (Mylanta) 30 ml Q4HP PRN PO HEARTBURN/INDIGESTION 06/26/20 18:45 07/13/20 14:48 Bacitracin (Bacitracin Oint) 1 dose BID TOP 07/08/20 21:00 07/17/20 08:04 Cariprazine (Vraylar) 1.5 mg DAILY PO 06/30/20 09:00 07/04/20 15:13 DC 07/04/20 09:01 Cariprazine (Vraylar) 3 mg DAILY PO 07/05/20 09:00 07/14/20 13:52 DC 07/14/20 08:01 Haloperidol (Haldol) 5 mg BID PO 06/28/20 09:00 06/29/20 15:44 DC 06/29/20 08:50 Haloperidol (Haldol) 5 mg Q4HP PRN PO AGITATION 06/27/20 22:15 07/08/20 11:37 DC 07/07/20 20:12 Haloperidol (Haldol) 5 mg TID PO 07/08/20 16:00 07/14/20 13:52 DC 07/14/20 08:01 Haloperidol (Haldol) 10 mg BID PO 06/29/20 21:00 06/29/20 16:02 DC Haloperidol (Haldol) 10 mg TID PO 07/14/20 21:00 07/17/20 08:04 Home Med (Med Rec Complete!) ASDIRECTED XX 06/26/20 19:15 06/26/20 19:05 DC Magnesium Hydroxide (Milk Of Magnesia) 30 ml DAILYPRN PRN PO CONSTIPATION 06/26/20 18:45 Nicotine (Nicoderm Cq 21mg) 1 patch DAILY TD 06/27/20 09:00 07/17/20 08:04 Olanzapine (ZyPREXA ZYDIS) 5 mg Q4HP PRN PO AGITATION 06/26/20 18:45 06/27/20 22:14 DC Trazodone HCl (Desyrel) 50 mg QHS PO 07/09/20 21:00 07/16/20 22:27 Trazodone HCl (Desyrel) 50 mg QHSP PRN PO INSOMNIA 06/26/20 18:45 07/09/20 13:23 DC Allergies Coded Allergies: Phenothiazines (Verified Allergy, Unknown, 06/26/20) fluphenazine (Verified Allergy, Unknown, 06/26/20) lithium (Verified Allergy, Unknown, 06/26/20) loxapine (Verified Allergy, Unknown, 06/26/20) meperidine (Verified Allergy, Unknown, 06/26/20) thioridazine (Verified Allergy, Unknown, 06/26/20) thiothixene (Verified Allergy, Unknown, 06/26/20) HEATHER PRAJAPATI DO Jul 17, 2020 09:49
[2020-07-17 16:01] VITALS: BP 136/62
[2020-07-17] MEDS: traZODone 50 MG TAB PO SCH (21:00)
[2020-07-18] MEDS ORDERED: diphenhydrAMINE 50MG CAP PO ONE (03:45)
[2020-07-18] MEDS: BACITRACIN OINTMENT 30GM TUBE TOP SCH ×2 (08:10→20:21)
[2020-07-18] MEDS: NICOTINE POLACRILEX 2 MG GUM PO PRN ×4 (09:17→21:18)
--- NOTE | 2020-07-18 10:17 | MHIPNPDOC ---
[facility] Progress Note Progress Note DATE OF SERVICE: 07/18/20 Subjective HPI: Patient met with today. He was generally more reasonable and linear today. He reported that he did want to go. The patient reports that he wants to return. When asked about his behavior, he reports that he had not. Discussed with patient about more appropriate boundaries on the unit. MEDICATIONS: He felt the Haldol was too much with too much extra pyramidal symptoms, reports of shakiness. Although curiously, he has been asking for it frequently at night. Objective Behavior: Quite paranoid. Distrustful. Affect: flat. constricted. Cognition: More intact. Thought Form: more logical. More linear. Does not respond to internal stimuli. Does look around room suspisciously. Judgement: Improved. Insight: Improved. Assessment F20.89 Other schizophrenia Plan Decrease Haldol to 10 milligrams BID, start inaudible 0.5 milligrams BID, although decanoate can be helpful. He's made some improvement. Although I'm not entirely convinced at this time that he would be successful as an outpatient in his current state. Vital Signs Vital Signs Date Time Temp Pulse Resp B/P (MAP) Pulse Ox O2 Delivery O2 Flow Rate FiO2 07/17/20 16:01 97.9 93 16 136/62 (86) 07/17/20 06:00 96 Room Air Current Medications Current Medications Medications (Trade) Dose Ordered Sig/Jovany Route PRN Reason Start Time Stop Time Status Last Admin Dose Admin Acetaminophen (Tylenol Tab) 650 mg Q6HP PRN PO HEADACHE or DISCOMFORT 06/26/20 18:45 07/05/20 12:58 Al Hydrox/Mg Hydrox/Simethicone (Mylanta) 30 ml Q4HP PRN PO HEARTBURN/INDIGESTION 06/26/20 18:45 07/13/20 14:48 Bacitracin (Bacitracin Oint) 1 dose BID TOP 07/08/20 21:00 07/18/20 08:10 Cariprazine (Vraylar) 1.5 mg DAILY PO 06/30/20 09:00 07/04/20 15:13 DC 07/04/20 09:01 Cariprazine (Vraylar) 3 mg DAILY PO 07/05/20 09:00 07/14/20 13:52 DC 07/14/20 08:01 Haloperidol (Haldol) 5 mg BID PO 06/28/20 09:00 06/29/20 15:44 DC 06/29/20 08:50 Haloperidol (Haldol) 5 mg Q4HP PRN PO AGITATION 06/27/20 22:15 07/08/20 11:37 DC 07/07/20 20:12 Haloperidol (Haldol) 5 mg TID PO 07/08/20 16:00 07/14/20 13:52 DC 07/14/20 08:01 Haloperidol (Haldol) 10 mg BID PO 06/29/20 21:00 06/29/20 16:02 DC Haloperidol (Haldol) 10 mg TID PO 07/14/20 21:00 07/17/20 15:14 DC 07/17/20 08:04 Haloperidol (Haldol) 10 mg TID PO 07/17/20 15:14 07/17/20 15:15 DC Haloperidol (Haldol) 10 mg TID PO 07/17/20 16:00 07/18/20 08:10 Home Med (Med Rec Complete!) ASDIRECTED XX 06/26/20 19:15 06/26/20 19:05 DC Magnesium Hydroxide (Milk Of Magnesia) 30 ml DAILYPRN PRN PO CONSTIPATION 06/26/20 18:45 Nicotine (Nicoderm Cq 21mg) 1 patch DAILY TD 06/27/20 09:00 07/18/20 08:16 DC 07/17/20 08:04 Nicotine (Nicorette) 2 mg Q4HP PRN PO NICOTINE WITHDRAWAL 07/18/20 09:00 07/18/20 09:17 Olanzapine (ZyPREXA ZYDIS) 5 mg Q4HP PRN PO AGITATION 06/26/20 18:45 06/27/20 22:14 DC Trazodone HCl (Desyrel) 50 mg QHS PO 07/09/20 21:00 07/16/20 22:27 Trazodone HCl (Desyrel) 50 mg QHSP PRN PO INSOMNIA 06/26/20 18:45 07/09/20 13:23 DC Allergies Coded Allergies: Phenothiazines (Verified Allergy, Unknown, 06/26/20) fluphenazine (Verified Allergy, Unknown, 06/26/20) lithium (Verified Allergy, Unknown, 06/26/20) loxapine (Verified Allergy, Unknown, 06/26/20) meperidine (Verified Allergy, Unknown, 06/26/20) thioridazine (Verified Allergy, Unknown, 06/26/20) thiothixene (Verified Allergy, Unknown, 06/26/20) HEATHER PRAJAPATI DO Jul 18, 2020 10:17
[2020-07-18 16:06] VITALS: BP 121/80
[2020-07-18] MEDS: MAALOX 30 ML SUSP *UDC PO PRN (18:18)
[2020-07-18] MEDS: BENZTROPINE 0.5 MG TAB PO SCH (20:21)
[2020-07-18] MEDS: traZODone 50 MG TAB PO SCH (20:22)
[2020-07-19] MEDS: NICOTINE POLACRILEX 2 MG GUM PO PRN ×6 (01:22→21:59)
[2020-07-19] MEDS: BACITRACIN OINTMENT 30GM TUBE TOP SCH ×2 (07:57→20:10)
[2020-07-19] MEDS: BENZTROPINE 0.5 MG TAB PO SCH ×2 (07:57→20:11)
--- NOTE | 2020-07-19 09:06 | MHIPNPDOC ---
[facility] Progress Note Progress Note DATE OF SERVICE: 07/19/20 Subjective HPI: The patient's met with today. Reports say is amenable to staying and getting better. MEDICATIONS: Reports that he was on Abilify in the past and wants to go back on it again. Objective Behavior: Bizarre at times. Unengaged in conversation. Less paranoid. Still look s around the room at times. Affect: flat. Speech: Normal rate. Normal volume. Spontaneous and Fluid. Cognition: Appears grossly intact. Thought Form: Linear and goal directed. Judgement: poor. Insight: Poor. Assessment F20.9 Schizophrenia, unspecified Plan Add Abilify five milligrams nightly, continue Haldol 10 milligrams BID, and Cogentin 0.5 milligrams PID. Further observation and Improvement, hopefully, will allow us to avert long-term care Currently, in the TLS program. Vital Signs Vital Signs Date Time Temp Pulse Resp B/P (MAP) Pulse Ox O2 Delivery O2 Flow Rate FiO2 07/18/20 16:06 98.0 97 16 121/80 (94) 07/17/20 06:00 96 Room Air Current Medications Current Medications Medications (Trade) Dose Ordered Sig/Jovany Route PRN Reason Start Time Stop Time Status Last Admin Dose Admin Acetaminophen (Tylenol Tab) 650 mg Q6HP PRN PO HEADACHE or DISCOMFORT 06/26/20 18:45 07/05/20 12:58 Al Hydrox/Mg Hydrox/Simethicone (Mylanta) 30 ml Q4HP PRN PO HEARTBURN/INDIGESTION 06/26/20 18:45 07/18/20 18:18 Bacitracin (Bacitracin Oint) 1 dose BID TOP 07/08/20 21:00 07/19/20 07:57 Benztropine Mesylate (Cogentin) 0.5 mg BID PO 07/18/20 21:00 07/19/20 07:57 Cariprazine (Vraylar) 1.5 mg DAILY PO 06/30/20 09:00 07/04/20 15:13 DC 07/04/20 09:01 Cariprazine (Vraylar) 3 mg DAILY PO 07/05/20 09:00 07/14/20 13:52 DC 07/14/20 08:01 Haloperidol (Haldol) 5 mg BID PO 06/28/20 09:00 06/29/20 15:44 DC 06/29/20 08:50 Haloperidol (Haldol) 5 mg Q4HP PRN PO AGITATION 06/27/20 22:15 07/08/20 11:37 DC 07/07/20 20:12 Haloperidol (Haldol) 5 mg TID PO 07/08/20 16:00 07/14/20 13:52 DC 07/14/20 08:01 Haloperidol (Haldol) 10 mg BID PO 06/29/20 21:00 06/29/20 16:02 DC Haloperidol (Haldol) 10 mg BID PO 07/18/20 21:00 07/19/20 07:57 Haloperidol (Haldol) 10 mg TID PO 07/14/20 21:00 07/17/20 15:14 DC 07/17/20 08:04 Haloperidol (Haldol) 10 mg TID PO 07/17/20 15:14 07/17/20 15:15 DC Haloperidol (Haldol) 10 mg TID PO 07/17/20 16:00 07/18/20 12:47 DC 07/18/20 08:10 Home Med (Med Rec Complete!) ASDIRECTED XX 06/26/20 19:15 06/26/20 19:05 DC Magnesium Hydroxide (Milk Of Magnesia) 30 ml DAILYPRN PRN PO CONSTIPATION 06/26/20 18:45 Nicotine (Nicoderm Cq 21mg) 1 patch DAILY TD 06/27/20 09:00 07/18/20 08:16 DC 07/17/20 08:04 Nicotine (Nicorette) 2 mg Q4HP PRN PO NICOTINE WITHDRAWAL 07/18/20 09:00 07/19/20 05:16 Olanzapine (ZyPREXA ZYDIS) 5 mg Q4HP PRN PO AGITATION 06/26/20 18:45 06/27/20 22:14 DC Trazodone HCl (Desyrel) 50 mg QHS PO 07/09/20 21:00 07/16/20 22:27 Trazodone HCl (Desyrel) 50 mg QHSP PRN PO INSOMNIA 06/26/20 18:45 07/09/20 13:23 DC Allergies Coded Allergies: Phenothiazines (Verified Allergy, Unknown, 06/26/20) fluphenazine (Verified Allergy, Unknown, 06/26/20) lithium (Verified Allergy, Unknown, 06/26/20) loxapine (Verified Allergy, Unknown, 06/26/20) meperidine (Verified Allergy, Unknown, 06/26/20) thioridazine (Verified Allergy, Unknown, 06/26/20) thiothixene (Verified Allergy, Unknown, 06/26/20) HEATHER PRAJAPATI DO Jul 19, 2020 09:06
[2020-07-19 16:01] VITALS: BP 113/69
[2020-07-19] MEDS: traZODone 50 MG TAB PO SCH (20:18)
[2020-07-20] MEDS: NICOTINE POLACRILEX 2 MG GUM PO PRN ×6 (04:59→22:05)
[2020-07-20 06:21] VITALS: BP 100/76
[2020-07-20] MEDS: BACITRACIN OINTMENT 30GM TUBE TOP SCH ×2 (08:08→20:28)
[2020-07-20] MEDS: BENZTROPINE 0.5 MG TAB PO SCH ×2 (08:08→20:28)
--- NOTE | 2020-07-20 10:42 | MHIPNPDOC ---
[facility] Progress Note Progress Note DATE OF SERVICE: 07/20/20 Subjective HPI: Albino presents today for a follow up. His anxiety usually occurs from things and people that are out of his control. He notes that after taking Abilify, hes beginning to find more control over things. He denies any side effects, including shakiness and tremors. In fact, Abilify actually helps him sleep better now. MEDICATIONS: After trying Abilify last night, he claims it worked well with his body. He states that it helps with his anxiety. Objective Appearance: Well groomed. Appears to be stated age. Well nourished. Behavior: Cooperative with good eye contact. Engaged. Pleasant. Affect: Full range. Appropriate to context. Mood: Euthymic. Appropriately reactive. Generally good. Speech: Normal volume. Normal rate. Spontaneous and Fluid. Motor: No gross motor abnormalities. Cognition: Alert, Attentive, and Oriented to person, place, time. Memory: No formal testing. No gross abnormalities of short or intermediate memory noted during interview. Thought Form: Linear and goal directed. Thought Content: No evidence of aggressive or homicidal ideation. No evidence of delusions. No thoughts of self harm. No evidence of suicidal ideation. Perception: No perceptual abnormalities noted. Judgement: Intact as evidenced by decision making in the recent past. Insight: Good insight into symptoms and treatment options. Assessment F20.9 Schizophrenia, unspecified Plan He appears to be quite euthymic, more engaged, and mildly flat at times, but appropriately reactive. Continue taking Abilify, Haldol, and Cogentin. Possible discharge next week. Vital Signs Vital Signs Date Time Temp Pulse Resp B/P (MAP) Pulse Ox O2 Delivery O2 Flow Rate FiO2 07/20/20 06:21 98.0 104 18 100/76 (84) 07/17/20 06:00 96 Room Air Current Medications Current Medications Medications (Trade) Dose Ordered Sig/Jovany Route PRN Reason Start Time Stop Time Status Last Admin Dose Admin Acetaminophen (Tylenol Tab) 650 mg Q6HP PRN PO HEADACHE or DISCOMFORT 06/26/20 18:45 07/05/20 12:58 Al Hydrox/Mg Hydrox/Simethicone (Mylanta) 30 ml Q4HP PRN PO HEARTBURN/INDIGESTION 06/26/20 18:45 07/18/20 18:18 Aripiprazole (AbiLIFY) 5 mg QHS PO 07/19/20 21:00 07/19/20 20:11 Bacitracin (Bacitracin Oint) 1 dose BID TOP 07/08/20 21:00 07/20/20 08:08 Benztropine Mesylate (Cogentin) 0.5 mg BID PO 07/18/20 21:00 07/20/20 08:08 Cariprazine (Vraylar) 1.5 mg DAILY PO 06/30/20 09:00 07/04/20 15:13 DC 07/04/20 09:01 Cariprazine (Vraylar) 3 mg DAILY PO 07/05/20 09:00 07/14/20 13:52 DC 07/14/20 08:01 Haloperidol (Haldol) 5 mg BID PO 06/28/20 09:00 06/29/20 15:44 DC 06/29/20 08:50 Haloperidol (Haldol) 5 mg Q4HP PRN PO AGITATION 06/27/20 22:15 07/08/20 11:37 DC 07/07/20 20:12 Haloperidol (Haldol) 5 mg TID PO 07/08/20 16:00 07/14/20 13:52 DC 07/14/20 08:01 Haloperidol (Haldol) 10 mg BID PO 06/29/20 21:00 06/29/20 16:02 DC Haloperidol (Haldol) 10 mg BID PO 07/18/20 21:00 07/20/20 08:08 Haloperidol (Haldol) 10 mg TID PO 07/14/20 21:00 07/17/20 15:14 DC 07/17/20 08:04 Haloperidol (Haldol) 10 mg TID PO 07/17/20 15:14 07/17/20 15:15 DC Haloperidol (Haldol) 10 mg TID PO 07/17/20 16:00 07/18/20 12:47 DC 07/18/20 08:10 Home Med (Med Rec Complete!) ASDIRECTED XX 06/26/20 19:15 06/26/20 19:05 DC Magnesium Hydroxide (Milk Of Magnesia) 30 ml DAILYPRN PRN PO CONSTIPATION 06/26/20 18:45 Nicotine (Nicoderm Cq 21mg) 1 patch DAILY TD 06/27/20 09:00 07/18/20 08:16 DC 07/17/20 08:04 Nicotine (Nicorette) 2 mg Q4HP PRN PO NICOTINE WITHDRAWAL 07/18/20 09:00 07/20/20 09:01 Olanzapine (ZyPREXA ZYDIS) 5 mg Q4HP PRN PO AGITATION 06/26/20 18:45 06/27/20 22:14 DC Trazodone HCl (Desyrel) 50 mg QHS PO 07/09/20 21:00 07/16/20 22:27 Trazodone HCl (Desyrel) 50 mg QHSP PRN PO INSOMNIA 06/26/20 18:45 07/09/20 13:23 DC Allergies Coded Allergies: Phenothiazines (Verified Allergy, Unknown, 06/26/20) fluphenazine (Verified Allergy, Unknown, 06/26/20) lithium (Verified Allergy, Unknown, 06/26/20) loxapine (Verified Allergy, Unknown, 06/26/20) meperidine (Verified Allergy, Unknown, 06/26/20) thioridazine (Verified Allergy, Unknown, 06/26/20) thiothixene (Verified Allergy, Unknown, 06/26/20) HEATHER PRAJAPATI DO Jul 20, 2020 10:42
[2020-07-20 18:44] VITALS: BP 138/81
[2020-07-20] MEDS: traZODone 50 MG TAB PO SCH (20:29)
[2020-07-21] MEDS: NICOTINE POLACRILEX 2 MG GUM PO PRN ×12 (00:08→23:12)
[2020-07-21 06:53] VITALS: BP 116/60
[2020-07-21] MEDS: BACITRACIN OINTMENT 30GM TUBE TOP SCH ×2 (08:10→20:40)
[2020-07-21] MEDS: BENZTROPINE 0.5 MG TAB PO SCH ×2 (08:10→20:39)
--- NOTE | 2020-07-21 10:53 | MHIPNPDOC ---
[facility] Progress Note Progress Note DATE OF SERVICE: 07/21/20 Subjective HPI: Albino presents today for concerns regarding his schizophrenia. Patient reports to be feeling better and wanting to go. He presents odd behavior such as walking around with jayshree pants around his shoulders. Some unusual thinking has made a strong focus. Effort needed to try to improve his behavior. Objective Appearance: Appears to be stated age. Well groomed. Well nourished. Affect: Appropriate to context. More reactive. Full range. Thought Form: Linear. Tangential. Assessment F20.9 Schizophrenia, unspecified Plan Continue Abilify, Haldol Hes instructed that he cannot go at this time, but will look forward to see if improvements are made. Will observe over weekend, potential discharge if he continues to improve. Vital Signs Vital Signs Date Time Temp Pulse Resp B/P (MAP) Pulse Ox O2 Delivery O2 Flow Rate FiO2 07/21/20 06:53 97.1 106 18 116/60 (78) Room Air 07/17/20 06:00 96 Current Medications Current Medications Medications (Trade) Dose Ordered Sig/Jovany Route PRN Reason Start Time Stop Time Status Last Admin Dose Admin Acetaminophen (Tylenol Tab) 650 mg Q6HP PRN PO HEADACHE or DISCOMFORT 06/26/20 18:45 07/05/20 12:58 Al Hydrox/Mg Hydrox/Simethicone (Mylanta) 30 ml Q4HP PRN PO HEARTBURN/INDIGESTION 06/26/20 18:45 07/18/20 18:18 Aripiprazole (AbiLIFY) 5 mg QHS PO 07/19/20 21:00 07/20/20 20:28 Bacitracin (Bacitracin Oint) 1 dose BID TOP 07/08/20 21:00 07/21/20 08:10 Benztropine Mesylate (Cogentin) 0.5 mg BID PO 07/18/20 21:00 07/21/20 08:10 Cariprazine (Vraylar) 1.5 mg DAILY PO 06/30/20 09:00 07/04/20 15:13 DC 07/04/20 09:01 Cariprazine (Vraylar) 3 mg DAILY PO 07/05/20 09:00 07/14/20 13:52 DC 07/14/20 08:01 Haloperidol (Haldol) 5 mg BID PO 06/28/20 09:00 06/29/20 15:44 DC 06/29/20 08:50 Haloperidol (Haldol) 5 mg Q4HP PRN PO AGITATION 06/27/20 22:15 07/08/20 11:37 DC 07/07/20 20:12 Haloperidol (Haldol) 5 mg TID PO 07/08/20 16:00 07/14/20 13:52 DC 07/14/20 08:01 Haloperidol (Haldol) 10 mg BID PO 06/29/20 21:00 06/29/20 16:02 DC Haloperidol (Haldol) 10 mg BID PO 07/18/20 21:00 07/21/20 08:10 Haloperidol (Haldol) 10 mg TID PO 07/14/20 21:00 07/17/20 15:14 DC 07/17/20 08:04 Haloperidol (Haldol) 10 mg TID PO 07/17/20 15:14 07/17/20 15:15 DC Haloperidol (Haldol) 10 mg TID PO 07/17/20 16:00 07/18/20 12:47 DC 07/18/20 08:10 Home Med (Med Rec Complete!) ASDIRECTED XX 06/26/20 19:15 06/26/20 19:05 DC Magnesium Hydroxide (Milk Of Magnesia) 30 ml DAILYPRN PRN PO CONSTIPATION 06/26/20 18:45 Nicotine (Nicoderm Cq 21mg) 1 patch DAILY TD 06/27/20 09:00 07/18/20 08:16 DC 07/17/20 08:04 Nicotine (Nicorette) 2 mg Q2H PRN PO NICOTINE WITHDRAWAL 07/20/20 16:45 07/21/20 10:09 Nicotine (Nicorette) 2 mg Q4HP PRN PO NICOTINE WITHDRAWAL 07/18/20 09:00 07/20/20 16:36 DC 07/20/20 13:08 Olanzapine (ZyPREXA ZYDIS) 5 mg Q4HP PRN PO AGITATION 06/26/20 18:45 06/27/20 22:14 DC Trazodone HCl (Desyrel) 50 mg QHS PO 07/09/20 21:00 07/16/20 22:27 Trazodone HCl (Desyrel) 50 mg QHSP PRN PO INSOMNIA 06/26/20 18:45 07/09/20 13:23 DC Allergies Coded Allergies: Phenothiazines (Verified Allergy, Unknown, 06/26/20) fluphenazine (Verified Allergy, Unknown, 06/26/20) lithium (Verified Allergy, Unknown, 06/26/20) loxapine (Verified Allergy, Unknown, 06/26/20) meperidine (Verified Allergy, Unknown, 06/26/20) thioridazine (Verified Allergy, Unknown, 06/26/20) thiothixene (Verified Allergy, Unknown, 06/26/20) HEATHER PRAJAPATI DO Jul 21, 2020 10:53
[2020-07-21 16:05] VITALS: BP 113/61
[2020-07-21] MEDS: traZODone 50 MG TAB PO SCH (20:40)
[2020-07-22] MEDS: NICOTINE POLACRILEX 2 MG GUM PO PRN ×9 (05:08→22:48)
[2020-07-22] MEDS: BENZTROPINE 0.5 MG TAB PO SCH ×2 (09:14→20:08)
[2020-07-22] MEDS: BACITRACIN OINTMENT 30GM TUBE TOP SCH ×3 (10:36→21:42)
[2020-07-22 16:10] VITALS: BP 113/67
[2020-07-22] MEDS: traZODone 50 MG TAB PO SCH (20:09)
[2020-07-23] MEDS: NICOTINE POLACRILEX 2 MG GUM PO PRN ×9 (04:59→22:28)
[2020-07-23] MEDS: BENZTROPINE 0.5 MG TAB PO SCH ×2 (08:34→20:34)
[2020-07-23] MEDS: BACITRACIN OINTMENT 30GM TUBE TOP SCH ×3 (08:34→20:49)
[2020-07-23 16:10] VITALS: BP 122/79
[2020-07-23] MEDS: traZODone 50 MG TAB PO SCH (20:35)
[2020-07-23] MEDS: ACETAMINOPHEN TAB 650MG DOSE (2X325MG) PO PRN (22:36)
[2020-07-24] MEDS: NICOTINE POLACRILEX 2 MG GUM PO PRN ×10 (00:29→21:24)
[2020-07-24 06:21] VITALS: BP 113/74
[2020-07-24] MEDS: BENZTROPINE 0.5 MG TAB PO SCH ×2 (08:00→21:21)
[2020-07-24] MEDS: BACITRACIN OINTMENT 30GM TUBE TOP SCH ×2 (08:02→21:00)
--- NOTE | 2020-07-24 11:16 | MHIPNPDOC ---
[facility] Progress Note Progress Note DATE OF SERVICE: 07/24/20 Subjective HPI: Albino presents today for evaluation. Patient reports he is feeling better, but still somewhat paranoid. Staff reports patient is more irritable than before. He has not had any overt violence on observation. Patient states that he wants to write a will, but denies suicidal thoughts or other concerning ideation at this time. MEDICATIONS: Current medications include Abilify, which he says is helpful. Objective Appearance: Hygiene - Fair. Behavior: Eye contact - Fair. Affect: Mildly flat. Speech: Speech - Fluid. Cognition: Grossly intact. Thought Form: Linear, although circumstantial times associations appear mildly loosened. Thought Content: No evidence of delusions. No evidence of aggressive or homicidal ideation. No evidence of suicidal ideation. Judgement: Poor - Fair. Insight: Poor - Fair. Assessment F20.9 Schizophrenia, unspecified Plan Continue Abilify and Haldol at current dose as it will help understand patients baseline. Last time this patient was seen at the unit, several years ago, staff reports he was more amenable, however, his irritability is noted. He doesnt appear to be engaging in any concerning behavior. Possible that his baseline has changed over a number of years. Vital Signs Vital Signs Date Time Temp Pulse Resp B/P (MAP) Pulse Ox O2 Delivery O2 Flow Rate FiO2 07/24/20 06:21 97.9 100 16 113/74 (87) 97 Room Air Current Medications Current Medications Medications (Trade) Dose Ordered Sig/Jovany Route PRN Reason Start Time Stop Time Status Last Admin Dose Admin Acetaminophen (Tylenol Tab) 650 mg Q6HP PRN PO HEADACHE or DISCOMFORT 06/26/20 18:45 07/23/20 22:36 Al Hydrox/Mg Hydrox/Simethicone (Mylanta) 30 ml Q4HP PRN PO HEARTBURN/INDIGESTION 06/26/20 18:45 07/18/20 18:18 Aripiprazole (AbiLIFY) 5 mg QHS PO 07/19/20 21:00 07/23/20 20:34 Bacitracin (Bacitracin Oint) 1 dose BID TOP 07/08/20 21:00 07/24/20 08:02 Benztropine Mesylate (Cogentin) 0.5 mg BID PO 07/18/20 21:00 07/24/20 08:00 Cariprazine (Vraylar) 1.5 mg DAILY PO 06/30/20 09:00 07/04/20 15:13 DC 07/04/20 09:01 Cariprazine (Vraylar) 3 mg DAILY PO 07/05/20 09:00 07/14/20 13:52 DC 07/14/20 08:01 Haloperidol (Haldol) 5 mg BID PO 06/28/20 09:00 06/29/20 15:44 DC 06/29/20 08:50 Haloperidol (Haldol) 5 mg Q4HP PRN PO AGITATION 06/27/20 22:15 07/08/20 11:37 DC 07/07/20 20:12 Haloperidol (Haldol) 5 mg TID PO 07/08/20 16:00 07/14/20 13:52 DC 07/14/20 08:01 Haloperidol (Haldol) 10 mg BID PO 06/29/20 21:00 06/29/20 16:02 DC Haloperidol (Haldol) 10 mg BID PO 07/18/20 21:00 07/24/20 08:00 Haloperidol (Haldol) 10 mg TID PO 07/14/20 21:00 07/17/20 15:14 DC 07/17/20 08:04 Haloperidol (Haldol) 10 mg TID PO 07/17/20 15:14 07/17/20 15:15 DC Haloperidol (Haldol) 10 mg TID PO 07/17/20 16:00 07/18/20 12:47 DC 07/18/20 08:10 Home Med (Med Rec Complete!) ASDIRECTED XX 06/26/20 19:15 06/26/20 19:05 DC Magnesium Hydroxide (Milk Of Magnesia) 30 ml DAILYPRN PRN PO CONSTIPATION 06/26/20 18:45 Nicotine (Nicoderm Cq 21mg) 1 patch DAILY TD 06/27/20 09:00 07/18/20 08:16 DC 07/17/20 08:04 Nicotine (Nicorette) 2 mg Q2H PRN PO NICOTINE WITHDRAWAL 07/20/20 16:45 07/24/20 10:12 Nicotine (Nicorette) 2 mg Q4HP PRN PO NICOTINE WITHDRAWAL 07/18/20 09:00 10/1/20 16:36 DC 07/20/20 13:08 Olanzapine (ZyPREXA ZYDIS) 5 mg Q4HP PRN PO AGITATION 06/26/20 18:45 06/27/20 22:14 DC Trazodone HCl (Desyrel) 50 mg QHS PO 07/09/20 21:00 07/16/20 22:27 Trazodone HCl (Desyrel) 50 mg QHSP PRN PO INSOMNIA 06/26/20 18:45 07/09/20 13:23 DC Allergies Coded Allergies: Phenothiazines (Verified Allergy, Unknown, 06/26/20) fluphenazine (Verified Allergy, Unknown, 06/26/20) lithium (Verified Allergy, Unknown, 06/26/20) loxapine (Verified Allergy, Unknown, 06/26/20) meperidine (Verified Allergy, Unknown, 06/26/20) thioridazine (Verified Allergy, Unknown, 06/26/20) thiothixene (Verified Allergy, Unknown, 06/26/20) HEATHER PRAJAPATI DO Jul 24, 2020 11:16
[2020-07-24 17:51] VITALS: BP 103/58
[2020-07-24] MEDS: traZODone 50 MG TAB PO SCH (21:00)
[2020-07-25] MEDS: NICOTINE POLACRILEX 2 MG GUM PO PRN ×6 (02:13→12:44)
[2020-07-25 05:16] VITALS: BP 103/73
[2020-07-25] MEDS: BENZTROPINE 0.5 MG TAB PO SCH (08:00)
[2020-07-25] MEDS: BACITRACIN OINTMENT 30GM TUBE TOP SCH (08:00)
--- NOTE | 2020-07-25 10:41 | MHIPNPDOC ---
[facility] Progress Note Progress Note DATE OF SERVICE: 07/25/20 HISTORY: . VITAL SIGNS: See below. NEW TEST RESULTS: . CURRENT MEDICATIONS: See below. MENTAL STATUS EXAMINATION: Patient is a -year old male, who is . Speech: Is . Language skills are . Thought processes including: . Thought content: . Abstract reasoning, and computation: . Description of associ ations: . Description of abnormal or psychotic thoughts: . Judgment: . Insight: [very limited, good, fair. poor]. Orientation: . Recent and remote memory: . Attention span and concentration: . Language: . Fund of knowledge: . Mood: . Affect: . DIAGNOSES: 1. . 2. . 3. . ASSESSMENT: MANAGEMENT PLAN: . TIME SPENT: minutes. Vital Signs Vital Signs Date Time Temp Pulse Resp B/P (MAP) Pulse Ox O2 Delivery O2 Flow Rate FiO2 07/25/20 05:16 97.6 97 18 103/73 (83) 97 Room Air Current Medications Current Medications Medications (Trade) Dose Ordered Sig/Jovany Route PRN Reason Start Time Stop Time Status Last Admin Dose Admin Acetaminophen (Tylenol Tab) 650 mg Q6HP PRN PO HEADACHE or DISCOMFORT 06/26/20 18:45 07/23/20 22:36 Al Hydrox/Mg Hydrox/Simethicone (Mylanta) 30 ml Q4HP PRN PO HEARTBURN/INDIGESTION 06/26/20 18:45 07/18/20 18:18 Aripiprazole (AbiLIFY) 5 mg QHS PO 07/19/20 21:00 07/24/20 21:21 Bacitracin (Bacitracin Oint) 1 dose BID TOP 07/08/20 21:00 07/24/20 08:02 Benztropine Mesylate (Cogentin) 0.5 mg BID PO 07/18/20 21:00 07/25/20 08:00 Cariprazine (Vraylar) 1.5 mg DAILY PO 06/30/20 09:00 07/04/20 15:13 DC 07/04/20 09:01 Cariprazine (Vraylar) 3 mg DAILY PO 07/05/20 09:00 07/14/20 13:52 DC 07/14/20 08:01 Haloperidol (Haldol) 5 mg BID PO 06/28/20 09:00 06/29/20 15:44 DC 06/29/20 08:50 Haloperidol (Haldol) 5 mg Q4HP PRN PO AGITATION 06/27/20 22:15 07/08/20 11:37 DC 07/07/20 20:12 Haloperidol (Haldol) 5 mg TID PO 07/08/20 16:00 07/14/20 13:52 DC 07/14/20 08:01 Haloperidol (Haldol) 10 mg BID PO 06/29/20 21:00 06/29/20 16:02 DC Haloperidol (Haldol) 10 mg BID PO 07/18/20 21:00 07/25/20 08:00 Haloperidol (Haldol) 10 mg TID PO 07/14/20 21:00 07/17/20 15:14 DC 07/17/20 08:04 Haloperidol (Haldol) 10 mg TID PO 07/17/20 15:14 07/17/20 15:15 DC Haloperidol (Haldol) 10 mg TID PO 07/17/20 16:00 07/18/20 12:47 DC 07/18/20 08:10 Home Med (Med Rec Complete!) ASDIRECTED XX 06/26/20 19:15 06/26/20 19:05 DC Magnesium Hydroxide (Milk Of Magnesia) 30 ml DAILYPRN PRN PO CONSTIPATION 06/26/20 18:45 Nicotine (Nicoderm Cq 21mg) 1 patch DAILY TD 06/27/20 09:00 07/18/20 08:16 DC 07/17/20 08:04 Nicotine (Nicorette) 2 mg Q2H PRN PO NICOTINE WITHDRAWAL 07/20/20 16:45 07/25/20 10:29 Nicotine (Nicorette) 2 mg Q4HP PRN PO NICOTINE WITHDRAWAL 07/18/20 09:00 07/20/20 16:36 DC 07/20/20 13:08 Olanzapine (ZyPREXA ZYDIS) 5 mg Q4HP PRN PO AGITATION 06/26/20 18:45 06/27/20 22:14 DC Trazodone HCl (Desyrel) 50 mg QHS PO 07/09/20 21:00 07/16/20 22:27 Trazodone HCl (Desyrel) 50 mg QHSP PRN PO INSOMNIA 06/26/20 18:45 07/09/20 13:23 DC Allergies Coded Allergies: Phenothiazines (Verified Allergy, Unknown, 06/26/20) fluphenazine (Verified Allergy, Unknown, 06/26/20) lithium (Verified Allergy, Unknown, 06/26/20) loxapine (Verified Allergy, Unknown, 06/26/20) meperidine (Verified Allergy, Unknown, 06/26/20) thioridazine (Verified Allergy, Unknown, 06/26/20) thiothixene (Verified Allergy, Unknown, 06/26/20) HEATHER PRAJAPATI DO Jul 25, 2020 10:41
--- NOTE | 2020-07-25 11:20 | MHDSPDOC ---
[facility] Discharge Summary Discharge Summary DATE OF ADMISSION: Jun 26, 2020 at 18:32 DATE OF DISCHARGE:Jul 25, 2020 at 13:32 DISCHARGE DIAGNOSES: F20.89 Other schizophrenia CONSULTANTS INVOLVED:[ None (basic hospitalist screening)] REASON FOR ADMISSION & TREATMENT AND PROGRESS ON THE UNIT : The patient was admitted to the inpatient health care unit after reportedly acting bizarre and subsequently being brought in for unusual behavior. He was initially started on Haldol which he would say was unhelpful for him. However, he was still bizarre and delusional when he arrived. Subsequently, the patient was tried on Vraylar that did not produce positive results. He was retried on Haldol with positive results increased with maximum of 30 mg in a day. However, this caused some EPs and it was lowered to 20 mg with The Cogentin 0.5 mg BID which was being used to prevent any EPS, which was no longer observed. He additionally was augmented with low dose Abilify 5 milligrams that produce a positive effect. He made good progress. He did not have any major aggression or other issues. He was irritable at times. This slowly resolved as patient was observed eventually he was triage for discharge and it made sufficient progress to warrant attempt at returning back to outpatient. He had requested for a court hearing multiple times and stated that it was not let go he would. He had some unusual statements from time to time but was otherwise appropriate in his behavior. Thus, the argument could not be made for continued involuntary state at this time due to his Improvement. DISCHARGE ASSESSMENT[improved] Legal status considerations: The patient at the time of discharge did not meet criteria for involuntary admission/extension due to having a improved mental status exam, improved insight into the situation, They are engaged in the discharge process, as well as being friendly and amenable in behavioral control and havent been engaging in any observed concerning behavior or ideation recently. They decline voluntary extension/admission at this time and must be discharged in good [place], as Im unable to make a case for holding the patient against their will. They may have historical risk factors of admissions and other interactions with psychiatry however, those are not modifiable from a clinical perspective. The patient will need to be discharged in good [place]. MENTAL STATUS EXAMINATION ON DISCHARGE: Appearance: Well groomed. Appears to be stated age. Well nourished. Affect: Appropriate to context. Mildly flat. Speech: Normal volume. Normal rate. Spontaneous and Fluid. Thought Form: Linear and goal directed. Thought Content: No evidence of aggressive or homicidal ideation. No evidence of delusions. No thoughts of self harm. No evidence of suicidal ideation. Insight/Judgement: Mildly improved. PLAN/FOLLOWUP ARRANGEMENTS: Follow up appointments made (PCP and MH in 5 days of D/C date) and safety plan completed. Safety Planning aspects completed prior to discharge [Medication supplies limited to 7 days with 4 refills to prevent accumulation to OD] [RN reviewed crisis hotline information and other aspects to empower patient to access care in interim before next appointment.] The amount of time spent in the coordination of care for this patient was approximately 30 minutes. Vital Signs/I&Os Vital Signs Date Time Temp Pulse Resp B/P (MAP) Pulse Ox O2 Delivery O2 Flow Rate FiO2 07/25/20 05:16 97.6 97 18 103/73 (83) 97 Room Air Medications Scheduled Aripiprazole (Abilify) 5 Mg Tablet, 5 MG PO QHS for thought for 7 Days, #7 Benztropine Mesylate (Benztropine Mesylate) 0.5 Mg Tablet, 0.5 MG PO BID for eps for 7 Days, #14 Haloperidol (Haloperidol) 10 Mg Tablet, 10 MG PO BID for thoughts for 7 Days, #14 Scheduled PRN Nicotine Polacrilex (Nicotine Gum) 2 Mg Gum, 2 MG PO Q2H PRN for NICOTINE WITHDRAWAL for 30 Days, #60 Allergies Coded Allergies: Phenothiazines (Verified Allergy, Unknown, 06/26/20) fluphenazine (Verified Allergy, Unknown, 06/26/20) lithium (Verified Allergy, Unknown, 06/26/20) loxapine (Verified Allergy, Unknown, 06/26/20) meperidine (Verified Allergy, Unknown, 06/26/20) thioridazine (Verified Allergy, Unknown, 06/26/20) thiothixene (Verified Allergy, Unknown, 06/26/20) HEATHER PRAJAPATI DO Jul 25, 2020 11:20
[2020-07-25] MEDS ORDERED: ABIL1TAB11 PO ×2 (11:27→14:27)
[2020-07-25] MEDS ORDERED: BENZ0.5T23 PO (11:27)
[2020-07-25] MEDS ORDERED: NICO2GUM PO (11:27)
[2020-07-25] MEDS ORDERED: HALO10TA20 PO (11:27)
== END 2020-07-25 13:32 | disposition home or self-care (01) | DRG 885 ==
LOC: M ED 12:27 → M ED INP 18:32 → M PSY 20:51
PROVIDERS: ADMIT Psychiatry & Neurology Addiction Medicine; ATTEND Psychiatry & Neurology Addiction Medicine
DX: F20.0 Paranoid schizophrenia (principal); Z79.899 Other long term (current) drug therapy; Z88.8 Allergy status to other drugs, medicaments and biological substances

== ENCOUNTER 2020-07-29 17:05 | Inpatient (IN) | payer MEDICAID, MEDICARE ==
[~2020-07-29] VITALS: Ht 175.3 cm; Wt 102.7 kg
[~2020-07-29 17:05] MED LIST changes: +ABIL1TAB11 PO; +BUSP5TA PO; +HALO10TA20 PO; +LEXA5TAB13 PO; +MED REC COMMENT; +NICO2GUM PO
[2020-07-29] MEDS ORDERED: VITA250T4 PO (17:13)
[2020-07-29] MEDS ORDERED: VITA1TAB35 PO (17:13)
[2020-07-29] MEDS ORDERED: B-650TAB2 PO (17:13)
[2020-07-29] MEDS ORDERED: NICOTINE 21MG/24HR 1 EA TRANSDERMAL TD ONE (17:30)
[2020-07-29 17:52] LABS: HEMATOCRIT 39.5 % (42.0-52.0); HEMOGLOBIN 13.5 g/dl (13.5-17.5); MEAN CORPUSCULAR HEMOGLOBIN 31.9 pg (27.0-33.0); MEAN CORPUSCULAR HGB CONC 34.2 g/dl (32.0-36.5); MEAN CORPUSCULAR VOLUME 93.4 fl (80.0-96.0); PLATELET COUNT, AUTOMATED 203 10^3/uL (150-450); RED BLOOD COUNT 4.23 10^6/uL (4.30-6.10); WHITE BLOOD COUNT 10.7 10^3/uL (4.0-10.0)
[2020-07-29 18:15] LABS: AMPHETAMINES LEVEL URINE NEGATIVE (NEGATIVE); BARBITURATES URINE NEGATIVE (NEGATIVE); BENZODIAZEPINES URINE NEGATIVE (NEGATIVE); CANNABINOIDS URINE NEGATIVE (NEGATIVE); COCAINE METABOLITE URINE NEGATIVE (NEGATIVE); METHADONE URINE NEGATIVE (NEGATIVE); OPIATES URINE NEGATIVE (NEGATIVE); PHENCYCLIDINE URINE NEGATIVE (NEGATIVE)
[2020-07-29 18:22] LABS: ACETAMINOPHEN LEVEL < 2.0 UG/ML (10.0-30.0); ALBUMIN 3.2 GM/DL (3.2-5.2); ALT/SGPT 42 U/L (12-78); BILIRUBIN,DIRECT 0.1 MG/DL (0.0-0.2); BILIRUBIN,TOTAL 0.4 MG/DL (0.2-1.0); BLOOD UREA NITROGEN 13 MG/DL (7-18); CALCIUM LEVEL 8.7 MG/DL (8.5-10.1); CARBON DIOXIDE LEVEL 28 MEQ/L (21-32); CHLORIDE LEVEL 106 MEQ/L (98-107); CREATININE FOR GFR 1.02 MG/DL (0.70-1.30); ETHYL ALCOHOL (ETHANOL) < 0.003 % (0.000-0.010); GLOMERULAR FILTRATION RATE > 60.0 (>56); GLUCOSE, FASTING 142 MG/DL (70-100); POTASSIUM SERUM 3.8 MEQ/L (3.5-5.1); SALICYLATE LEVEL < 1.7 MG/DL (5.0-30.0); SODIUM LEVEL 139 MEQ/L (136-145); TOTAL PROTEIN 6.2 GM/DL (6.4-8.2)
[2020-07-29] MEDS ORDERED: HALO10TA20 PO (18:38)
[2020-07-29] MEDS ORDERED: BENZ0.5T23 PO (18:38)
[2020-07-29] MEDS ORDERED: ARIP1TAB6 PO (18:38)
[2020-07-29] MEDS ORDERED: B-12100020 PO (18:38)
[2020-07-29] MEDS ORDERED: ACETAMINOPHEN TAB 650MG DOSE (2X325MG) PO PRN (20:00)
[2020-07-29] MEDS ORDERED: traZODone 50 MG TAB PO PRN (20:00)
[2020-07-29] MEDS ORDERED: MOM 30ML SUSPENSION UDC PO PRN (20:00)
[2020-07-29] MEDS: BENZTROPINE 0.5 MG TAB PO SCH (22:40)
[2020-07-29 23:00] VITALS: BP 111/69
[2020-07-30] MEDS: PYRIDOXINE 50 MG TAB PO SCH (08:08)
[2020-07-30] MEDS: ASCORBIC ACID 250 MG TAB PO SCH (08:08)
[2020-07-30] MEDS: BENZTROPINE 0.5 MG TAB PO SCH ×2 (08:08→20:36)
[2020-07-30] MEDS ORDERED: FLUBLOK(EGG FREE)(QUAD)INFLUENZA VACC 0.5ML SYRINGE 18YRS & OLDER IM ONE (09:00)
[2020-07-30] MEDS: NICOTINE 21MG/24HR 1 EA TRANSDERMAL TD SCH (09:04)
--- NOTE | 2020-07-30 11:13 | HPEPDOC ---
[facility] Medical History & Physical Date of Admission Jul 29, 2020 Date of Service: Jul 30, 2020 Attending Physician: Alana Daniels MD History and Physical HISTORY OF PRESENT ILLNESS: Patient is a 55-year-old male with past mental history of bipolar disorder, paranoid schizophrenia and anxiety admitted to [facility] with a chief diagnosis of schizophrenia, suicidal ideation. Patient states that he has had some suicidal ideation but no plan. Yesterday when he locked out of his house he states he couldn't get back in so he came to the emergency room for further evaluation. This is different from the account he gave to the emergency room. He states there is a "black family down the street that is threatening mean". He also thinks people are stealing from him. He is telling me today that he has AIDS and lung cancer and that he needs medications to cure these. There is no record of him ever having been diagnosed with lung cancer or aids. Exam was unremarkable. He denied chest pain, shortness of breath, nausea, vomiting, fevers, chills, homicidal ideation, visual or auditory hallucinations. NOTE: Patient was not a good historian and was telling me things that did not align with his prior medical history. Unreliable. REVIEW OF SYSTEMS: Ng except what is mentioned above PAST MEDICAL HISTORY: 1. Bipolar disorder 2. Paranoid schizophrenia 3. Anxiety PAST SURGICAL HISTORY: 1. Colonoscopy 2. Nasal surgery 3. Cardiac catheterization SOCIAL HISTORY: Patient is a single. Smoker, one pack a day. FAMILY HISTORY: Noncontributory ALLERGIES: The patient has multiple drug allergies to LITHIUM, LOXAPINE, MEPERIDINE, THORAZINE, THIOZINE, PHENOTHIAZINE, FLUPHENAZINE. CURRENT MEDICATIONS: Please see below. PHYSICAL EXAMINATION: VS: Please see below CONSTITUTIONAL: No acute distress, laying down in bed, AAO x 2 EYES: PERRLA, EOM intact HENT, MOUTH: Normocephalic, atraumatic, moist mucous membranes NECK: SUPPLE, no JVD, no lymphadenopathy, no carotid bruit CV: Regular rate and rhythm, S1S2 normal, no murmurs/rubs/gallops RESPIRATORY: Clear to auscultation bilaterally, no rales/rhonchi/wheezes GI: BS positive in 4 quadrants, soft, nontender, nondistended, no rebound or guarding, no organomegaly : Deferred MUSCULOSKELETAL: Normal ROM. No cyanosis, clubbing, swelling, joint deformity, extremity edema INTEGUMENTARY: Intact, no rashes, no erythema. Cracked but clean area on right heel, nonsuppurative, no erythema or edema NEUROLOGIC: No focal deficits PSYCHIATRIC: depressed mood, flat affect LABORATORY DATA: Please see below IMAGING: None ASSESSMENT: 55-year-old male admitted to inpatient mental health unit for further treatment of schizophrenia. PLAN: 1. Schizophrenia. Plan per psychiatry team 2. Anxiety. Plan per psychiatry team 3. Bipolar disorder. Plan per psychiatry team. 4. Tobacco use. Nicotine patch. 5. Insomnia. Trazodone. DISPOSITION: As patient appears rather well outside of his psychiatric illness, will sign off for now. If we are needed in the future, please do not hesitate to call again. Vital Signs Vital Signs Date Time Temp Pulse Resp B/P (MAP) Pulse Ox O2 Delivery O2 Flow Rate FiO2 07/29/20 23:00 97.6 107 18 111/69 (83) 95 Room Air Laboratory Data Labs 24H Laboratory Tests 2 07/29/20 17:41: Nucleated Red Blood Cells % (auto) 0.0, Anion Gap 5L, Glomerular Filtration Rate > 60.0, Calcium Level 8.7, Total Bilirubin 0.4, Direct Bilirubin 0.1, Aspartate Amino Transf (AST/SGOT) 28, Alanine Aminotransferase (ALT/SGPT) 42, Alkaline Phosphatase 72, Total Protein 6.2L, Albumin 3.2, Albumin/Globulin Ratio 1.1, Thyroid Stimulating Hormone (TSH) 2.290, Salicylates Level < 1.7L, Urine Opiates Screen NEGATIVE, Urine Methadone Screen NEGATIVE, Acetaminophen Level < 2.0L, Urine Barbiturates Screen NEGATIVE, Urine Phencyclidine Screen NEGATIVE, Urine Amphetamines Screen NEGATIVE, Urine Benzodiazepines Screen NEGATIVE, Urine Cocaine Metabolite Screen NEGATIVE, Urine Cannabinoids Screen NEGATIVE, Ethyl Alcohol Level < 0.003 CBC/BMP Laboratory Tests 07/29/20 17:41 Home Medications Scheduled Aripiprazole (Aripiprazole) 5 Mg Tablet, 5 MG PO QHS Ascorbic Acid (Vitamin C) 250 Mg Tablet, 250 MG PO DAILY Benztropine Mesylate (Benztropine Mesylate) 0.5 Mg Tablet, 0.5 MG PO BID Cyanocobalamin (Vitamin B-12) (B-12) 1,000 Mcg Tablet, 1,000 MCG PO DAILY Haloperidol (Haloperidol) 10 Mg Tablet, 10 MG PO BID Pyridoxine HCl (Vitamin B6) (Vitamin B-6) 50 Mg Tablet, 50 MG PO DAILY Allergies Coded Allergies: Phenothiazines (Verified Allergy, Unknown, 06/26/20) fluphenazine (Verified Allergy, Unknown, 06/26/20) lithium (Verified Allergy, Unknown, 06/26/20) loxapine (Verified Allergy, Unknown, 06/26/20) meperidine (Verified Allergy, Unknown, 06/26/20) thioridazine (Verified Allergy, Unknown, 06/26/20) thiothixene (Verified Allergy, Unknown, 06/26/20) A-FIB/CHADSVASC A-FIB History Current/History of A-Fib/PAF?: No Current PO Anticoag Therapy: No Age/Risk Factor Scoring CHADSVASC: CHADSVASC Response (Comments) Value Age Risk Factor Age < 65 years old 0 Gender Risk Factor Male 0 Hx of CHF No 0 Hx of HTN No 0 Hx of Stroke/TIA/or VTE No 0 Hx of Diabetes No 0 Hx of Vascular Disease No 0 Total 0 Treatment Treatment ordered: NONE Alana Daniels MD Jul 30, 2020 11:13
[2020-07-30 17:54] VITALS: BP 149/83
[2020-07-30] MEDS: MAALOX 30 ML SUSP *UDC PO PRN (21:41)
[2020-07-31] MEDS: BENZTROPINE 0.5 MG TAB PO SCH ×2 (08:00→21:00)
[2020-07-31] MEDS: ASCORBIC ACID 250 MG TAB PO SCH (08:00)
[2020-07-31] MEDS: PYRIDOXINE 50 MG TAB PO SCH (08:00)
[2020-07-31] MEDS: NICOTINE 21MG/24HR 1 EA TRANSDERMAL TD SCH (08:01)
--- NOTE | 2020-07-31 09:42 | MHIPNPDOC ---
[facility] Progress Note Progress Note DATE OF SERVICE: 07/31/20 Subjective HPI: Albino was seen today. Patient continues paranoid ideation by walking around in his underwear on his head. He is primarily distorted as he makes little conversation and does ask to go to [facility]. Objective Appearance: Hygiene, fair. Wearing underwear on his head. Behavior: Tangential. Paranoid. Delusional. Affect: Flat. Mood: I need to go to [facility]. Speech: Spontaneous and Fluid. Normal volume. Normal rate. Judgement: Poor. Insight: Poor. Assessment F20.9 Schizophrenia, unspecified Plan Continue current medications Abilify and Haldol Refer patient to [facility]. Vital Signs Vital Signs Date Time Temp Pulse Resp B/P (MAP) Pulse Ox O2 Delivery O2 Flow Rate FiO2 07/30/20 17:54 97.7 86 16 149/83 (105) 07/29/20 23:00 95 Room Air Current Medications Current Medications Medications (Trade) Dose Ordered Sig/Jovany Route PRN Reason Start Time Stop Time Status Last Admin Dose Admin Acetaminophen (Tylenol Tab) 650 mg Q6HP PRN PO HEADACHE or DISCOMFORT 07/29/20 20:00 Al Hydrox/Mg Hydrox/Simethicone (Mylanta) 30 ml Q4HP PRN PO HEARTBURN/INDIGESTION 07/29/20 20:00 07/30/20 21:41 Aripiprazole (AbiLIFY) 5 mg QHS PO 07/29/20 21:00 07/30/20 20:36 Ascorbic Acid (Vitamin C) 250 mg DAILY PO 07/30/20 09:00 07/31/20 08:00 Benztropine Mesylate (Cogentin) 0.5 mg BID PO 07/29/20 21:00 07/31/20 08:00 Haloperidol (Haldol) 10 mg BID PO 07/29/20 21:00 07/31/20 08:00 Home Med (Med Rec Complete!) ASDIRECTED XX 07/29/20 18:45 07/29/20 18:41 DC Magnesium Hydroxide (Milk Of Magnesia) 30 ml DAILYPRN PRN PO CONSTIPATION 07/29/20 20:00 Nicotine (Nicoderm Cq 21mg) 1 patch DAILY TD 07/30/20 09:00 07/31/20 08:01 Pyridoxine HCl (Vitamin B6) 50 mg DAILY PO 07/30/20 09:00 07/31/20 08:00 Trazodone HCl (Desyrel) 50 mg QHSP PRN PO INSOMNIA 07/29/20 20:00 Allergies Coded Allergies: Phenothiazines (Verified Allergy, Unknown, 06/26/20) fluphenazine (Verified Allergy, Unknown, 06/26/20) lithium (Verified Allergy, Unknown, 06/26/20) loxapine (Verified Allergy, Unknown, 06/26/20) meperidine (Verified Allergy, Unknown, 06/26/20) thioridazine (Verified Allergy, Unknown, 06/26/20) thiothixene (Verified Allergy, Unknown, 06/26/20) HEATHER PRAJAPATI DO Jul 31, 2020 09:42
[2020-07-31] MEDS: CYANOCOBALAMIN 250 MCG TABLET PO SCH (15:14)
[2020-07-31 16:01] VITALS: BP 134/67
[2020-08-01] MEDS: MAALOX 30 ML SUSP *UDC PO PRN (02:50)
[2020-08-01] MEDS: BENZTROPINE 0.5 MG TAB PO SCH ×3 (02:51→19:51)
[2020-08-01] MEDS ORDERED: diphenhydrAMINE 50MG CAP PO ONE (05:30)
[2020-08-01] MEDS: CYANOCOBALAMIN 250 MCG TABLET PO SCH (07:57)
[2020-08-01] MEDS: PYRIDOXINE 50 MG TAB PO SCH (07:58)
[2020-08-01] MEDS: ASCORBIC ACID 250 MG TAB PO SCH (07:58)
[2020-08-01] MEDS: NICOTINE 21MG/24HR 1 EA TRANSDERMAL TD SCH (08:00)
--- NOTE | 2020-08-01 10:15 | MHHPE ---
DATE OF ADMISSION: 07/29/2020 DATE OF EVALUATION: 07/30/2020 HISTORY OF PRESENT ILLNESS: This is one of multiple admissions for this 55-year-old man who was actually just discharged from the psychiatric unit at [facility] where he was admitted from 06/26/2020 to 07/25/2020 and he presented again to the emergency room stating that he was having suicidal thoughts although he denied having any plans. He was very paranoid talking about being threatened by several people. He talked about being locked out of his house and he says that this was going to actually become his house and that he was going to purchase this house. The patient has a history of schizophrenia with multiple hospitalizations. He does have outpatient treatment at [facility] and he says that he has been compliant with taking his medications upon discharge but I do not know how reliable he is. He is supposed to be on Abilify 5 mg nightly and Cogentin 0.5 mg twice a day and Haldol 10 mg twice a day. PAST PSYCHIATRIC HISTORY: The patient has a history of multiple hospitalizations as I indicated above. FAMILY HISTORY: Unknown. He is not the best historian in this respect. SUBSTANCE ABUSE: The patient denies any problems with alcohol or drugs. The patients toxicology was negative for any drugs. ABUSE HISTORY: I did not elicit any history of abuse. REVIEW OF SYSTEMS: Vital signs: Blood pressure 111/69, pulse 107, respirations 18. Appearance: The patient did not appear to be in any apparent distress. Neuromuscular system: The patients gait was normal and there was no involuntary movements noted. All other systems were reviewed and found to be negative. MENTAL STATUS EXAMINATION: This patient is alert and oriented times three. Eye contact fair. Psychomotor activity is decreased. The patient does not exhibit any formal thought disorder. He says his mood was fine. His affect was flat. The patient definitely has paranoid delusions. Concentration is fair. Memory intact. He denies suicidal ideations today but that he was having them at the time of admission yesterday. He denies homicidal ideations. Insight and judgment is poor. DIAGNOSIS: Schizophrenia. TREATMENT PLAN: At this point, we will continue the patient on the current medications. He denies that he stopped taking the medications but he may not be reliable. We will continue to monitor him for paranoid delusions and since he just had a 1 month hospitalization and was just discharged last week, he may possibly benefit from long-term treatment at [facility]. TERRANCE
--- NOTE | 2020-08-01 10:42 | MHIPNPDOC ---
[facility] Progress Note Progress Note DATE OF SERVICE: 08/01/20 Subjective HPI: Albino presents today for concerns regarding his psych issues. Patient met with today. Still somewhat bizarre and unusual. He primarily spends the majority of the interview asking strange questions, and then suddenly saying that he wants to go back to [facility]. (Inaudible)Having significant difficulties. Focusing on tasks, wearing underwear on his head. Objective Appearance: Fair hygiene. Appears to be stated age. Speech: Incoherent at times. Associations loosened. Thought Form: Tangential. Thought Content: Paranoid thoughts present. Judgement: Poor. Insight: Poor. Assessment F20.9 Schizophrenia, unspecified Plan Continue Haldol 10 mg BID and Abilify 5 mg nightly. Will refer for a long-term treatment as will likely need this at this time. Vital Signs Vital Signs Date Time Temp Pulse Resp B/P (MAP) Pulse Ox O2 Delivery O2 Flow Rate FiO2 07/31/20 16:01 98.1 92 18 134/67 (89) 07/29/20 23:00 95 Room Air Current Medications Current Medications Medications (Trade) Dose Ordered Sig/Jovany Route PRN Reason Start Time Stop Time Status Last Admin Dose Admin Acetaminophen (Tylenol Tab) 650 mg Q6HP PRN PO HEADACHE or DISCOMFORT 07/29/20 20:00 Al Hydrox/Mg Hydrox/Simethicone (Mylanta) 30 ml Q4HP PRN PO HEARTBURN/INDIGESTION 07/29/20 20:00 08/01/20 02:50 Aripiprazole (AbiLIFY) 5 mg QHS PO 07/29/20 21:00 08/01/20 02:51 Ascorbic Acid (Vitamin C) 250 mg DAILY PO 07/30/20 09:00 08/01/20 07:58 Benztropine Mesylate (Cogentin) 0.5 mg BID PO 07/29/20 21:00 08/01/20 07:57 Cyanocobalamin (Vitamin B12) 250 mcg DAILY PO 07/31/20 09:00 08/01/20 07:57 Haloperidol (Haldol) 10 mg BID PO 07/29/20 21:00 08/01/20 07:57 Home Med (Med Rec Complete!) ASDIRECTED XX 07/29/20 18:45 07/29/20 18:41 DC Magnesium Hydroxide (Milk Of Magnesia) 30 ml DAILYPRN PRN PO CONSTIPATION 07/29/20 20:00 Nicotine (Nicoderm Cq 21mg) 1 patch DAILY TD 07/30/20 09:00 08/01/20 08:00 Pyridoxine HCl (Vitamin B6) 50 mg DAILY PO 07/30/20 09:00 08/01/20 07:58 Trazodone HCl (Desyrel) 50 mg QHSP PRN PO INSOMNIA 07/29/20 20:00 07/31/20 11:56 DC Allergies Coded Allergies: Phenothiazines (Verified Allergy, Unknown, 06/26/20) fluphenazine (Verified Allergy, Unknown, 06/26/20) lithium (Verified Allergy, Unknown, 06/26/20) loxapine (Verified Allergy, Unknown, 06/26/20) meperidine (Verified Allergy, Unknown, 06/26/20) thioridazine (Verified Allergy, Unknown, 06/26/20) thiothixene (Verified Allergy, Unknown, 06/26/20) nicotine (Verified Adverse Reaction, Unknown, 08/01/20) Pt chews on transdermal patches, please do not give. HEATHER PRAJAPATI DO Aug 01, 2020 10:42
[2020-08-01] MEDS: NICOTINE POLACRILEX 2 MG GUM PO PRN ×3 (11:18→21:04)
[2020-08-01 16:37] VITALS: BP 121/72
[2020-08-02] MEDS: NICOTINE POLACRILEX 2 MG GUM PO PRN ×6 (01:56→22:01)
[2020-08-02 06:27] VITALS: BP 128/66
[2020-08-02] MEDS: BENZTROPINE 0.5 MG TAB PO SCH ×2 (08:50→21:11)
[2020-08-02] MEDS: ASCORBIC ACID 250 MG TAB PO SCH (08:50)
[2020-08-02] MEDS: CYANOCOBALAMIN 250 MCG TABLET PO SCH (08:50)
[2020-08-02] MEDS: PYRIDOXINE 50 MG TAB PO SCH (08:50)
--- NOTE | 2020-08-02 10:53 | MHIPNPDOC ---
[facility] Progress Note Progress Note DATE OF SERVICE: 08/02/20 Subjective HPI: Patient seen today symptoms continues to be psychotic and distorted with little insight gained. Otherwise, patient primarily reporting unusual ideation. Objective Appearance: Fair. Behavior: psychotic. Tangential. Bizarre. Unusual. Affect: Flat with little reactivity. Speech: Fluid. Judgement: Poor. Insight: Poor. Assessment F25.9 Schizoaffective disorder, unspecified Plan Continue Haldol and Abilify Will continue to pursue long-term treatment. Vital Signs Vital Signs Date Time Temp Pulse Resp B/P (MAP) Pulse Ox O2 Delivery O2 Flow Rate FiO2 08/02/20 06:27 97.8 115 20 128/66 (86) 07/29/20 23:00 95 Room Air Current Medications Current Medications Medications (Trade) Dose Ordered Sig/Jovany Route PRN Reason Start Time Stop Time Status Last Admin Dose Admin Acetaminophen (Tylenol Tab) 650 mg Q6HP PRN PO HEADACHE or DISCOMFORT 07/29/20 20:00 Al Hydrox/Mg Hydrox/Simethicone (Mylanta) 30 ml Q4HP PRN PO HEARTBURN/INDIGESTION 07/29/20 20:00 08/01/20 02:50 Aripiprazole (AbiLIFY) 5 mg QHS PO 07/29/20 21:00 08/01/20 19:51 Ascorbic Acid (Vitamin C) 250 mg DAILY PO 07/30/20 09:00 08/02/20 08:50 Benztropine Mesylate (Cogentin) 0.5 mg BID PO 07/29/20 21:00 08/02/20 08:50 Cyanocobalamin (Vitamin B12) 250 mcg DAILY PO 07/31/20 09:00 08/02/20 08:50 Haloperidol (Haldol) 10 mg BID PO 07/29/20 21:00 08/02/20 08:50 Home Med (Med Rec Complete!) ASDIRECTED XX 07/29/20 18:45 07/29/20 18:41 DC Magnesium Hydroxide (Milk Of Magnesia) 30 ml DAILYPRN PRN PO CONSTIPATION 07/29/20 20:00 08/01/20 10:49 Nicotine (Nicoderm Cq 21mg) 1 patch DAILY TD 07/30/20 09:00 08/01/20 11:07 DC 10/13/20 08:00 Nicotine (Nicorette) 2 mg Q4HP PRN PO NICOTINE WITHDRAWAL 08/01/20 11:00 08/02/20 09:57 Pyridoxine HCl (Vitamin B6) 50 mg DAILY PO 07/30/20 09:00 08/02/20 08:50 Trazodone HCl (Desyrel) 50 mg QHSP PRN PO INSOMNIA 07/29/20 20:00 07/31/20 11:56 DC Allergies Coded Allergies: Phenothiazines (Verified Allergy, Unknown, 06/26/20) fluphenazine (Verified Allergy, Unknown, 06/26/20) lithium (Verified Allergy, Unknown, 06/26/20) loxapine (Verified Allergy, Unknown, 06/26/20) meperidine (Verified Allergy, Unknown, 06/26/20) thioridazine (Verified Allergy, Unknown, 06/26/20) thiothixene (Verified Allergy, Unknown, 06/26/20) nicotine (Verified Adverse Reaction, Unknown, 08/01/20) Pt chews on transdermal patches, please do not give. HEATHER PRAJAPATI DO Aug 02, 2020 10:53
[2020-08-02 16:38] VITALS: BP 101/70
[2020-08-03] MEDS: NICOTINE POLACRILEX 2 MG GUM PO PRN ×5 (03:46→20:29)
[2020-08-03 06:26] VITALS: BP 93/55
[2020-08-03] MEDS: BENZTROPINE 0.5 MG TAB PO SCH ×2 (08:07→20:29)
[2020-08-03] MEDS: PYRIDOXINE 50 MG TAB PO SCH (08:08)
[2020-08-03] MEDS: ASCORBIC ACID 250 MG TAB PO SCH (08:08)
[2020-08-03] MEDS: CYANOCOBALAMIN 250 MCG TABLET PO SCH (08:09)
--- NOTE | 2020-08-03 09:38 | MHIPNPDOC ---
[facility] Progress Note Progress Note DATE OF SERVICE: 08/03/20 Subjective HPI: The patient is met with today. The patient is still distorted and makes a little sense today. Quite paranoid staring at others. Objective Behavior: Paranoid. Incoherent at times. Does not make sense. Asked for nicotine gum. unengaged. Judgement: Poor. Insight: Poor. Assessment F25.9 Schizoaffective disorder, unspecified Plan Increase Abilify to 10 milligrams nightly. Continue Haldol 10 milligrams BID. Continue to pursue a long-term treatment Vital Signs Vital Signs Date Time Temp Pulse Resp B/P (MAP) Pulse Ox O2 Delivery O2 Flow Rate FiO2 08/03/20 06:26 97.6 116 20 93/55 (68) 07/29/20 23:00 95 Room Air Current Medications Current Medications Medications (Trade) Dose Ordered Sig/Jovany Route PRN Reason Start Time Stop Time Status Last Admin Dose Admin Acetaminophen (Tylenol Tab) 650 mg Q6HP PRN PO HEADACHE or DISCOMFORT 07/29/20 20:00 Al Hydrox/Mg Hydrox/Simethicone (Mylanta) 30 ml Q4HP PRN PO HEARTBURN/INDIGESTION 07/29/20 20:00 08/01/20 02:50 Aripiprazole (AbiLIFY) 5 mg QHS PO 07/29/20 21:00 08/02/20 21:11 Ascorbic Acid (Vitamin C) 250 mg DAILY PO 07/30/20 09:00 08/03/20 08:08 Benztropine Mesylate (Cogentin) 0.5 mg BID PO 07/29/20 21:00 08/03/20 08:07 Cyanocobalamin (Vitamin B12) 250 mcg DAILY PO 07/31/20 09:00 08/03/20 08:09 Haloperidol (Haldol) 10 mg BID PO 07/29/20 21:00 08/03/20 08:07 Home Med (Med Rec Complete!) ASDIRECTED XX 07/29/20 18:45 07/29/20 18:41 DC Magnesium Hydroxide (Milk Of Magnesia) 30 ml DAILYPRN PRN PO CONSTIPATION 07/29/20 20:00 08/01/20 10:49 Nicotine (Nicoderm Cq 21mg) 1 patch DAILY TD 07/30/20 09:00 08/01/20 11:07 DC 08/01/20 08:00 Nicotine (Nicorette) 2 mg Q4HP PRN PO NICOTINE WITHDRAWAL 08/01/20 11:00 08/03/20 08:10 Pyridoxine HCl (Vitamin B6) 50 mg DAILY PO 07/30/20 09:00 08/03/20 08:08 Trazodone HCl (Desyrel) 50 mg QHSP PRN PO INSOMNIA 07/29/20 20:00 07/31/20 11:56 DC Allergies Coded Allergies: Phenothiazines (Verified Allergy, Unknown, 06/26/20) fluphenazine (Verified Allergy, Unknown, 06/26/20) lithium (Verified Allergy, Unknown, 06/26/20) loxapine (Verified Allergy, Unknown, 06/26/20) meperidine (Verified Allergy, Unknown, 06/26/20) thioridazine (Verified Allergy, Unknown, 06/26/20) thiothixene (Verified Allergy, Unknown, 06/26/20) nicotine (Verified Adverse Reaction, Unknown, 08/01/20) Pt chews on transdermal patches, please do not give. HEATHER PRAJAPATI DO Aug 03, 2020 09:38
[2020-08-03] MEDS: ARIPiprazole 10 MG TAB PO SCH (20:29)
[2020-08-03] MEDS: MAALOX 30 ML SUSP *UDC PO PRN (21:55)
[2020-08-04] MEDS: NICOTINE POLACRILEX 2 MG GUM PO PRN ×6 (01:01→21:08)
[2020-08-04 07:02] VITALS: BP 104/59
[2020-08-04] MEDS: CYANOCOBALAMIN 250 MCG TABLET PO SCH (08:22)
[2020-08-04] MEDS: PYRIDOXINE 50 MG TAB PO SCH (08:22)
[2020-08-04] MEDS: ASCORBIC ACID 250 MG TAB PO SCH (08:22)
[2020-08-04] MEDS: BENZTROPINE 0.5 MG TAB PO SCH ×2 (08:23→20:19)
--- NOTE | 2020-08-04 10:28 | MHIPNPDOC ---
[facility] Progress Note Progress Note DATE OF SERVICE: 08/04/20 Subjective HPI: Albino presents today for his psych issues. The patient is met with briefly today. However, he is still quite distorted and generally is not making much sense. He generally is amenable and says that he would go to [place] but otherwise has little else to say. Objective Appearance: Fair hygiene. Appears to be stated age. Mood: Patient appears quite paranoid, bizarre, and unusual. . Speech: Not pressured speech. Spontaneous and Fluid. Normal rate. Normal volume. Thought Form: Tangential. Judgement: Poor. Insight: Poor. Assessment F25.9 Schizoaffective disorder, unspecified Plan Continue Haldol 10 milligrams BID and Abilify 10 milligrams QHS. We'll continue to look for bed at [place] [facility]. It appears it will take some time for him to resolve. Vital Signs Vital Signs Date Time Temp Pulse Resp B/P (MAP) Pulse Ox O2 Delivery O2 Flow Rate FiO2 08/04/20 07:02 98.2 113 16 104/59 (74) Room Air 07/29/20 23:00 95 Current Medications Current Medications Medications (Trade) Dose Ordered Sig/Jovany Route PRN Reason Start Time Stop Time Status Last Admin Dose Admin Acetaminophen (Tylenol Tab) 650 mg Q6HP PRN PO HEADACHE or DISCOMFORT 07/29/20 20:00 Al Hydrox/Mg Hydrox/Simethicone (Mylanta) 30 ml Q4HP PRN PO HEARTBURN/INDIGESTION 07/29/20 20:00 08/03/20 21:55 Aripiprazole (AbiLIFY) 5 mg QHS PO 07/29/20 21:00 08/03/20 12:10 DC 08/02/20 21:11 Aripiprazole (AbiLIFY) 10 mg QHS PO 08/03/20 21:00 08/03/20 20:29 Ascorbic Acid (Vitamin C) 250 mg DAILY PO 07/30/20 09:00 08/04/20 08:22 Benztropine Mesylate (Cogentin) 0.5 mg BID PO 07/29/20 21:00 08/04/20 08:23 Cyanocobalamin (Vitamin B12) 250 mcg DAILY PO 07/31/20 09:00 08/04/20 08:22 Haloperidol (Haldol) 10 mg BID PO 07/29/20 21:00 08/04/20 08:22 Home Med (Med Rec Complete!) ASDIRECTED XX 07/29/20 18:45 07/29/20 18:41 DC Magnesium Hydroxide (Milk Of Magnesia) 30 ml DAILYPRN PRN PO CONSTIPATION 07/29/20 20:00 08/01/20 10:49 Nicotine (Nicoderm Cq 21mg) 1 patch DAILY TD 07/30/20 09:00 08/01/20 11:07 DC 08/01/20 08:00 Nicotine (Nicorette) 2 mg Q4HP PRN PO NICOTINE WITHDRAWAL 08/01/20 11:00 08/04/20 09:09 Pyridoxine HCl (Vitamin B6) 50 mg DAILY PO 07/30/20 09:00 08/04/20 08:22 Trazodone HCl (Desyrel) 50 mg QHSP PRN PO INSOMNIA 07/29/20 20:00 07/31/20 11:56 DC Allergies Coded Allergies: Phenothiazines (Verified Allergy, Unknown, 06/26/20) fluphenazine (Verified Allergy, Unknown, 06/26/20) lithium (Verified Allergy, Unknown, 06/26/20) loxapine (Verified Allergy, Unknown, 06/26/20) meperidine (Verified Allergy, Unknown, 06/26/20) thioridazine (Verified Allergy, Unknown, 06/26/20) thiothixene (Verified Allergy, Unknown, 06/26/20) nicotine (Verified Adverse Reaction, Unknown, 08/01/20) Pt chews on transdermal patches, please do not give. HEATHER PRAJAPATI DO Aug 04, 2020 10:28
[2020-08-04 16:04] VITALS: BP 116/65
[2020-08-04] MEDS: ARIPiprazole 10 MG TAB PO SCH (20:19)
[2020-08-05] MEDS: NICOTINE POLACRILEX 2 MG GUM PO PRN ×5 (02:25→21:18)
[2020-08-05] MEDS: BENZTROPINE 0.5 MG TAB PO SCH ×2 (08:05→20:22)
[2020-08-05] MEDS: PYRIDOXINE 50 MG TAB PO SCH (08:05)
[2020-08-05] MEDS: ASCORBIC ACID 250 MG TAB PO SCH (08:05)
[2020-08-05] MEDS: CYANOCOBALAMIN 250 MCG TABLET PO SCH (08:05)
[2020-08-05 16:25] VITALS: BP 112/59
[2020-08-05] MEDS: ARIPiprazole 10 MG TAB PO SCH (20:22)
[2020-08-06] MEDS: NICOTINE POLACRILEX 2 MG GUM PO PRN ×5 (03:36→20:56)
[2020-08-06] MEDS: ASCORBIC ACID 250 MG TAB PO SCH (07:55)
[2020-08-06] MEDS: CYANOCOBALAMIN 250 MCG TABLET PO SCH (07:56)
[2020-08-06] MEDS: BENZTROPINE 0.5 MG TAB PO SCH ×2 (07:56→20:02)
[2020-08-06] MEDS: PYRIDOXINE 50 MG TAB PO SCH (07:56)
[2020-08-06 17:12] VITALS: BP 140/58
[2020-08-06] MEDS: ARIPiprazole 10 MG TAB PO SCH (20:02)
[2020-08-07] MEDS: NICOTINE POLACRILEX 2 MG GUM PO PRN ×5 (02:47→21:04)
[2020-08-07 06:56] VITALS: BP 97/57
[2020-08-07] MEDS: BENZTROPINE 0.5 MG TAB PO SCH ×2 (08:18→20:07)
[2020-08-07] MEDS: PYRIDOXINE 50 MG TAB PO SCH (08:19)
[2020-08-07] MEDS: CYANOCOBALAMIN 250 MCG TABLET PO SCH (08:19)
[2020-08-07] MEDS: ASCORBIC ACID 250 MG TAB PO SCH (08:19)
--- NOTE | 2020-08-07 09:55 | MHIPNPDOC ---
[facility] Progress Note Progress Note DATE OF SERVICE: 08/07/20 Subjective HPI: Patient presents today for concerns regarding his medication. Patient denies suicidal tendencies and ideations. MEDICATIONS: He reports that the Abilify has been helpful, but he notices that he is often restless on the medication. Objective Appearance: Appears to be stated age. Well groomed. Well nourished. Behavior: Cooperative with good eye contact. Pleasant. Engaged. Affect: Flat. Little Reactivity. Cognition: Linear and Logical. Alert, Attentive, and Oriented to person, place, time. Judgement: Mildly Improved. Assessment F20.89 Other schizophrenia Plan Discontinue Abilify. Continue Haldol 10 mg. Vital Signs Vital Signs Date Time Temp Pulse Resp B/P (MAP) Pulse Ox O2 Delivery O2 Flow Rate FiO2 08/07/20 06:56 98.4 120 16 97/57 (70) 08/04/20 07:02 Room Air Current Medications Current Medications Medications (Trade) Dose Ordered Sig/Jovany Route PRN Reason Start Time Stop Time Status Last Admin Dose Admin Acetaminophen (Tylenol Tab) 650 mg Q6HP PRN PO HEADACHE or DISCOMFORT 07/29/20 20:00 Al Hydrox/Mg Hydrox/Simethicone (Mylanta) 30 ml Q4HP PRN PO HEARTBURN/INDIGESTION 07/29/20 20:00 08/03/20 21:55 Aripiprazole (AbiLIFY) 5 mg QHS PO 07/29/20 21:00 08/03/20 12:10 DC 08/02/20 21:11 Aripiprazole (AbiLIFY) 10 mg QHS PO 08/03/20 21:00 08/06/20 20:02 Ascorbic Acid (Vitamin C) 250 mg DAILY PO 07/30/20 09:00 08/07/20 08:19 Benztropine Mesylate (Cogentin) 0.5 mg BID PO 07/29/20 21:00 08/07/20 08:18 Cyanocobalamin (Vitamin B12) 250 mcg DAILY PO 07/31/20 09:00 08/07/20 08:19 Haloperidol (Haldol) 10 mg BID PO 07/29/20 21:00 08/07/20 08:18 Home Med (Med Rec Complete!) ASDIRECTED XX 07/29/20 18:45 07/29/20 18:41 DC Magnesium Hydroxide (Milk Of Magnesia) 30 ml DAILYPRN PRN PO CONSTIPATION 07/29/20 20:00 08/01/20 10:49 Nicotine (Nicoderm Cq 21mg) 1 patch DAILY TD 07/30/20 09:00 08/01/20 11:07 DC 08/01/20 08:00 Nicotine (Nicorette) 2 mg Q4HP PRN PO NICOTINE WITHDRAWAL 08/01/20 11:00 08/07/20 08:20 Pyridoxine HCl (Vitamin B6) 50 mg DAILY PO 07/30/20 09:00 08/07/20 08:19 Trazodone HCl (Desyrel) 50 mg QHSP PRN PO INSOMNIA 07/29/20 20:00 07/31/20 11:56 DC Allergies Coded Allergies: Phenothiazines (Verified Allergy, Unknown, 06/26/20) fluphenazine (Verified Allergy, Unknown, 06/26/20) lithium (Verified Allergy, Unknown, 06/26/20) loxapine (Verified Allergy, Unknown, 06/26/20) meperidine (Verified Allergy, Unknown, 06/26/20) thioridazine (Verified Allergy, Unknown, 06/26/20) thiothixene (Verified Allergy, Unknown, 06/26/20) nicotine (Verified Adverse Reaction, Unknown, 08/01/20) Pt chews on transdermal patches, please do not give. HEATHER PRAJAPATI DO Aug 07, 2020 09:55
[2020-08-07 17:41] VITALS: BP 121/66
[2020-08-08] MEDS: NICOTINE POLACRILEX 2 MG GUM PO PRN ×6 (02:41→23:23)
[2020-08-08 06:31] VITALS: BP 134/64
[2020-08-08] MEDS: CYANOCOBALAMIN 250 MCG TABLET PO SCH (08:24)
[2020-08-08] MEDS: ASCORBIC ACID 250 MG TAB PO SCH (08:24)
[2020-08-08] MEDS: BENZTROPINE 0.5 MG TAB PO SCH ×2 (08:24→20:10)
[2020-08-08] MEDS: PYRIDOXINE 50 MG TAB PO SCH (08:24)
[2020-08-08] MEDS: TRIAMCINOLONE ACET 0.1% CREAM 15 GM TOP SCH ×2 (16:00→20:10)
[2020-08-09] MEDS: NICOTINE POLACRILEX 2 MG GUM PO PRN ×5 (04:42→22:51)
[2020-08-09 06:32] VITALS: BP 151/77
[2020-08-09] MEDS: CYANOCOBALAMIN 250 MCG TABLET PO SCH (08:16)
[2020-08-09] MEDS: PYRIDOXINE 50 MG TAB PO SCH (08:16)
[2020-08-09] MEDS: TRIAMCINOLONE ACET 0.1% CREAM 15 GM TOP SCH ×3 (08:16→22:49)
[2020-08-09] MEDS: ASCORBIC ACID 250 MG TAB PO SCH (08:17)
[2020-08-09] MEDS: BENZTROPINE 0.5 MG TAB PO SCH ×2 (08:17→22:50)
[2020-08-09] MEDS: MAALOX 30 ML SUSP *UDC PO PRN (23:16)
[2020-08-10] MEDS: NICOTINE POLACRILEX 2 MG GUM PO PRN ×5 (02:51→20:03)
[2020-08-10 07:23] VITALS: BP 122/66
[2020-08-10] MEDS: BENZTROPINE 0.5 MG TAB PO SCH ×2 (08:00→20:03)
[2020-08-10] MEDS: PYRIDOXINE 50 MG TAB PO SCH (08:01)
[2020-08-10] MEDS: ASCORBIC ACID 250 MG TAB PO SCH (08:01)
[2020-08-10] MEDS: CYANOCOBALAMIN 250 MCG TABLET PO SCH (08:01)
[2020-08-10] MEDS: TRIAMCINOLONE ACET 0.1% CREAM 15 GM TOP SCH ×3 (08:02→20:05)
--- NOTE | 2020-08-10 10:26 | MHIPNPDOC ---
[facility] Progress Note Progress Note DATE OF SERVICE: 08/10/20 Subjective HPI: The patient is met with, he reports that he is doing much better, he's been more linear with less unusual statements. He states that the Haldol is helpful open to going to [place]. Objective General: [Well dressed with good hygiene] Speech: [Spontaneous and fluid] Thought processes: [Linear and logical] Thought content: [Future orientated] Abstract reasoning, and computation: [Intact] Description of associations: [Intact] Description of abnormal or psychotic thoughts:[Denies any suicidal or homicidal ideation. Denies any auditory or visual hallucinations. Does not appear to be responding to internal stimuli. Does not appear to be endorsing any bizarre or paranoid ideation.] Judgment: [fair] Insight: [fair] Orientation: [Alert and orientated 3] Recent and remote memory: [Intact] Attention span and concentration: [Intact] Fund of knowledge: [Adequate] Mood: ["okay"] Affect: somewhat flat Assessment schizoaffective disorder Plan Continue Haldol, will consider discontinuing transfer to [place] as he joseluis ears to be improving slowly Vital Signs Vital Signs Date Time Temp Pulse Resp B/P (MAP) Pulse Ox O2 Delivery O2 Flow Rate FiO2 08/10/20 09:51 Room Air 08/10/20 07:23 97.4 92 16 122/66 (84) Current Medications Current Medications Medications (Trade) Dose Ordered Sig/Jovany Route PRN Reason Start Time Stop Time Status Last Admin Dose Admin Acetaminophen (Tylenol Tab) 650 mg Q6HP PRN PO HEADACHE or DISCOMFORT 07/29/20 20:00 Al Hydrox/Mg Hydrox/Simethicone (Mylanta) 30 ml Q4HP PRN PO HEARTBURN/INDIGESTION 07/29/20 20:00 08/09/20 23:16 Aripiprazole (AbiLIFY) 5 mg QHS PO 07/29/20 21:00 08/03/20 12:10 DC 08/02/20 21:11 Aripiprazole (AbiLIFY) 10 mg QHS PO 08/03/20 21:00 08/07/20 11:37 DC 08/06/20 20:02 Ascorbic Acid (Vitamin C) 250 mg DAILY PO 07/30/20 09:00 08/10/20 08:01 Benztropine Mesylate (Cogentin) 0.5 mg BID PO 07/29/20 21:00 08/10/20 08:00 Cyanocobalamin (Vitamin B12) 250 mcg DAILY PO 07/31/20 09:00 08/10/20 08:01 Haloperidol (Haldol) 10 mg BID PO 07/29/20 21:00 08/10/20 08:00 Home Med (Med Rec Complete!) ASDIRECTED XX 07/29/20 18:45 07/29/20 18:41 DC Magnesium Hydroxide (Milk Of Magnesia) 30 ml DAILYPRN PRN PO CONSTIPATION 07/29/20 20:00 08/01/20 10:49 Nicotine (Nicoderm Cq 21mg) 1 patch DAILY TD 07/30/20 09:00 08/01/20 11:07 DC 08/01/20 08:00 Nicotine (Nicorette) 2 mg Q4HP PRN PO NICOTINE WITHDRAWAL 08/01/20 11:00 08/10/20 06:58 Pyridoxine HCl (Vitamin B6) 50 mg DAILY PO 07/30/20 09:00 08/10/20 08:01 Trazodone HCl (Desyrel) 50 mg QHSP PRN PO INSOMNIA 07/29/20 20:00 07/31/20 11:56 DC Triamcinolone Acetonide (Kenalog 0.1% Cream) TID TOP 08/08/20 16:00 08/10/20 08:02 Allergies Coded Allergies: Phenothiazines (Verified Allergy, Unknown, 06/26/20) fluphenazine (Verified Allergy, Unknown, 06/26/20) lithium (Verified Allergy, Unknown, 06/26/20) loxapine (Verified Allergy, Unknown, 06/26/20) meperidine (Verified Allergy, Unknown, 06/26/20) thioridazine (Verified Allergy, Unknown, 06/26/20) thiothixene (Verified Allergy, Unknown, 06/26/20) nicotine (Verified Adverse Reaction, Unknown, 08/01/20) Pt chews on transdermal patches, please do not give. HEATHER PRAJAPATI DO Aug 10, 2020 10:26
--- NOTE | 2020-08-10 15:55 | MHIPN ---
DATE: 08/09/2020 CHIEF COMPLAINT: Says is doing okay. SUBJECTIVE: I am seeing as I am assigned to him for today, is away. The patient says he has been feeling okay, says at times has nerve pain and says has taken gabapentin for it in the past. Says he sleeps better here. Spoke of not doing well recently and spending time in the streets. He suggests did not have anywhere to go to for a few days. Says does not intend returning to [facility]. MENTAL STATUS EXAMINATION: Neat, cooperative, no agitation, no psychomotor retardation. Answers questions briefly, coherent. Affect is restricted in range, somewhat blunted and he denies any suicidal thoughts or intents. Denies any thoughts of harming anyone else. No overt delusions are listed at present. Judgment and insight remains compromised. ASSESSMENT: Schizophrenia. PLAN: Continue current care, observations. Continue with Haldol 10 mg twice a day, benztropine 0.5 mg twice a day. He is remaining in hospital at present and an application to keep here was made. Please see the relevant form for that Further recommendations will be made depending on the clinical picture. AMBERD
[2020-08-11] MEDS: NICOTINE POLACRILEX 2 MG GUM PO PRN ×5 (04:02→23:59)
[2020-08-11 06:15] VITALS: BP 127/63
[2020-08-11] MEDS: BENZTROPINE 0.5 MG TAB PO SCH ×2 (08:11→19:58)
[2020-08-11] MEDS: CYANOCOBALAMIN 250 MCG TABLET PO SCH (08:12)
[2020-08-11] MEDS: ASCORBIC ACID 250 MG TAB PO SCH (08:12)
[2020-08-11] MEDS: PYRIDOXINE 50 MG TAB PO SCH (08:12)
[2020-08-11] MEDS: TRIAMCINOLONE ACET 0.1% CREAM 15 GM TOP SCH ×4 (08:14→21:05)
--- NOTE | 2020-08-11 12:29 | MHIPNPDOC ---
[facility] Progress Note Progress Note DATE OF SERVICE: 08/11/20 Subjective HPI: The patient is met with, he reports he is doing quite well and is not as interested in [place] anymore. He reports he is feeling much more focused and engaged. Staff report that he has been much more able to cope with stressors and doesn't appear to be demonstrating paranoia or disorganization. Objective General: Well dressed with good hygiene Speech: Spontaneous and fluid Thought processes: Linear and logical Thought content: Future orientated Abstract reasoning, and computation: Intact Description of associations: Intact Description of abnormal or psychotic thoughts:Denies any suicidal or homicidal ideation. Denies any auditory or visual hallucinations. Does not appear to be responding to internal stimuli. Does not appear to be endorsing any bizarre or paranoid ideation. Judgment: fair Insight: fair Orientation: Alert and orientated 3 Recent and remote memory: Intact Attention span and concentration: Intact Fund of knowledge: Adequate Mood: "okay" Affect: more reactive Assessment schizoaffective disorder, bipolar type Plan Plan is to continue Haldol at this time, declines long-acting injectable, will see about potential discharge on Friday back to [facility] Vital Signs Vital Signs Date Time Temp Pulse Resp B/P (MAP) Pulse Ox O2 Delivery O2 Flow Rate FiO2 08/11/20 06:15 98.0 107 18 127/63 (84) Room Air Current Medications Current Medications Medications (Trade) Dose Ordered Sig/Jovany Route PRN Reason Start Time Stop Time Status Last Admin Dose Admin Acetaminophen (Tylenol Tab) 650 mg Q6HP PRN PO HEADACHE or DISCOMFORT 07/29/20 20:00 Al Hydrox/Mg Hydrox/Simethicone (Mylanta) 30 ml Q4HP PRN PO HEARTBURN/INDIGESTION 07/29/20 20:00 08/09/20 23:16 Aripiprazole (AbiLIFY) 5 mg QHS PO 07/29/20 21:00 08/03/20 12:10 DC 08/02/20 21:11 Aripiprazole (AbiLIFY) 10 mg QHS PO 08/03/20 21:00 08/07/20 11:37 DC 08/06/20 20:02 Ascorbic Acid (Vitamin C) 250 mg DAILY PO 07/30/20 09:00 08/11/20 08:12 Benztropine Mesylate (Cogentin) 0.5 mg BID PO 07/29/20 21:00 08/11/20 08:11 Cyanocobalamin (Vitamin B12) 250 mcg DAILY PO 07/31/20 09:00 08/11/20 08:12 Haloperidol (Haldol) 10 mg BID PO 07/29/20 21:00 08/11/20 08:11 Home Med (Med Rec Complete!) ASDIRECTED XX 07/29/20 18:45 07/29/20 18:41 DC Magnesium Hydroxide (Milk Of Magnesia) 30 ml DAILYPRN PRN PO CONSTIPATION 07/29/20 20:00 08/01/20 10:49 Nicotine (Nicoderm Cq 21mg) 1 patch DAILY TD 07/30/20 09:00 08/01/20 11:07 DC 08/01/20 08:00 Nicotine (Nicorette) 2 mg Q4HP PRN PO NICOTINE WITHDRAWAL 08/01/20 11:00 08/11/20 08:01 Pyridoxine HCl (Vitamin B6) 50 mg DAILY PO 07/30/20 09:00 08/11/20 08:12 Trazodone HCl (Desyrel) 50 mg QHSP PRN PO INSOMNIA 07/29/20 20:00 07/31/20 11:56 DC Triamcinolone Acetonide (Kenalog 0.1% Cream) TID TOP 08/08/20 16:00 08/10/20 16:00 Allergies Coded Allergies: Phenothiazines (Verified Allergy, Unknown, 06/26/20) fluphenazine (Verified Allergy, Unknown, 06/26/20) lithium (Verified Allergy, Unknown, 06/26/20) loxapine (Verified Allergy, Unknown, 06/26/20) meperidine (Verified Allergy, Unknown, 06/26/20) thioridazine (Verified Allergy, Unknown, 06/26/20) thiothixene (Verified Allergy, Unknown, 06/26/20) nicotine (Verified Adverse Reaction, Unknown, 08/01/20) Pt chews on transdermal patches, please do not give. HEATHER PRAJAPATI DO Aug 11, 2020 12:29
[2020-08-11 18:07] VITALS: BP 133/86
[2020-08-12] MEDS: NICOTINE POLACRILEX 2 MG GUM PO PRN ×5 (04:29→21:36)
[2020-08-12 06:36] VITALS: BP 124/56
[2020-08-12] MEDS: TRIAMCINOLONE ACET 0.1% CREAM 15 GM TOP SCH ×3 (07:58→21:36)
[2020-08-12] MEDS: CYANOCOBALAMIN 250 MCG TABLET PO SCH (08:03)
[2020-08-12] MEDS: BENZTROPINE 0.5 MG TAB PO SCH ×2 (08:03→21:36)
[2020-08-12] MEDS: PYRIDOXINE 50 MG TAB PO SCH (08:03)
[2020-08-12] MEDS: ASCORBIC ACID 250 MG TAB PO SCH (08:03)
[2020-08-12 17:24] VITALS: BP 125/72
[2020-08-13] MEDS: NICOTINE POLACRILEX 2 MG GUM PO PRN ×6 (03:26→21:00)
[2020-08-13 06:56] VITALS: BP 124/52
[2020-08-13] MEDS: TRIAMCINOLONE ACET 0.1% CREAM 15 GM TOP SCH ×3 (09:00→21:00)
[2020-08-13] MEDS: BENZTROPINE 0.5 MG TAB PO SCH ×2 (09:10→21:00)
[2020-08-13] MEDS: PYRIDOXINE 50 MG TAB PO SCH (09:10)
[2020-08-13] MEDS: ASCORBIC ACID 250 MG TAB PO SCH (09:10)
[2020-08-13] MEDS: CYANOCOBALAMIN 250 MCG TABLET PO SCH (09:10)
[2020-08-13 18:19] VITALS: BP 132/66
[2020-08-14] MEDS: NICOTINE POLACRILEX 2 MG GUM PO PRN ×5 (03:47→19:41)
[2020-08-14 06:48] VITALS: BP 122/67
[2020-08-14] MEDS: TRIAMCINOLONE ACET 0.1% CREAM 15 GM TOP SCH ×3 (08:23→21:00)
[2020-08-14] MEDS: CYANOCOBALAMIN 250 MCG TABLET PO SCH (08:24)
[2020-08-14] MEDS: ASCORBIC ACID 250 MG TAB PO SCH (08:25)
[2020-08-14] MEDS: BENZTROPINE 0.5 MG TAB PO SCH ×2 (08:25→20:00)
[2020-08-14] MEDS: PYRIDOXINE 50 MG TAB PO SCH (08:25)
--- NOTE | 2020-08-14 09:44 | MHIPNPDOC ---
[facility] Progress Note Progress Note DATE OF SERVICE: 08/14/20 Subjective HPI: Albino presents today for a mental health examine. He is doing well today. Staff reports he has done very well and is quite pleasant and amenable. MEDICATIONS: He reports the Haldol is quite helpful for him. Objective Appearance: Well nourished. Well groomed. Appears to be stated age. Behavior: Cooperative with good eye contact. Engaged. Pleasant. Affect: Full range. Appropriate to context. Mood: Generally good. Appropriately reactive. Euthymic. Speech: Spontaneous and Fluid. Normal rate. Normal volume. Motor: No gross motor abnormalities. Cognition: Alert, Attentive, and Oriented to person, place, time. Memory: No gross abnormalities of short or skilled nursing memory noted during interview. No formal testing. Thought Form: Linear and goal directed. Thought Content: No evidence of suicidal ideation. No evidence of aggressive or homicidal ideation. No thoughts of self harm. No evidence of delusions. Perception: No perceptual abnormalities noted. Judgement: Intact as evidenced by decision making in the recent past. Insight: Good insight into symptoms and treatment options. Assessment F25.9 Schizoaffective disorder, unspecified Plan Continue Haldol, 10 mg BID. Again offered decanoate, however patient declined. Discharge tomorrow to [facility]. Vital Signs Vital Signs Date Time Temp Pulse Resp B/P (MAP) Pulse Ox O2 Delivery O2 Flow Rate FiO2 08/14/20 06:48 96.8 76 14 122/67 (85) 08/13/20 18:19 100 Room Air Current Medications Current Medications Medications (Trade) Dose Ordered Sig/Jovany Route PRN Reason Start Time Stop Time Status Last Admin Dose Admin Acetaminophen (Tylenol Tab) 650 mg Q6HP PRN PO HEADACHE or DISCOMFORT 07/29/20 20:00 Al Hydrox/Mg Hydrox/Simethicone (Mylanta) 30 ml Q4HP PRN PO HEARTBURN/INDIGESTION 07/29/20 20:00 08/09/20 23:16 Aripiprazole (AbiLIFY) 5 mg QHS PO 07/29/20 21:00 08/03/20 12:10 DC 08/02/20 21:11 Aripiprazole (AbiLIFY) 10 mg QHS PO 08/03/20 21:00 08/07/20 11:37 DC 08/06/20 20:02 Ascorbic Acid (Vitamin C) 250 mg DAILY PO 07/30/20 09:00 08/14/20 08:25 Benztropine Mesylate (Cogentin) 0.5 mg BID PO 07/29/20 21:00 08/14/20 08:25 Cyanocobalamin (Vitamin B12) 250 mcg DAILY PO 07/31/20 09:00 08/14/20 08:24 Haloperidol (Haldol) 10 mg BID PO 07/29/20 21:00 08/14/20 08:25 Home Med (Med Rec Complete!) ASDIRECTED XX 07/29/20 18:45 07/29/20 18:41 DC Magnesium Hydroxide (Milk Of Magnesia) 30 ml DAILYPRN PRN PO CONSTIPATION 07/29/20 20:00 08/01/20 10:49 Nicotine (Nicoderm Cq 21mg) 1 patch DAILY TD 07/30/20 09:00 08/01/20 11:07 DC 08/01/20 08:00 Nicotine (Nicorette) 2 mg Q4HP PRN PO NICOTINE WITHDRAWAL 08/01/20 11:00 08/14/20 07:40 Pyridoxine HCl (Vitamin B6) 50 mg DAILY PO 07/30/20 09:00 08/14/20 08:25 Trazodone HCl (Desyrel) 50 mg QHSP PRN PO INSOMNIA 07/29/20 20:00 07/31/20 11:56 DC Triamcinolone Acetonide (Kenalog 0.1% Cream) TID TOP 08/08/20 16:00 08/14/20 08:23 Allergies Coded Allergies: Phenothiazines (Verified Allergy, Unknown, 06/26/20) fluphenazine (Verified Allergy, Unknown, 06/26/20) lithium (Verified Allergy, Unknown, 06/26/20) loxapine (Verified Allergy, Unknown, 06/26/20) meperidine (Verified Allergy, Unknown, 06/26/20) thioridazine (Verified Allergy, Unknown, 06/26/20) thiothixene (Verified Allergy, Unknown, 06/26/20) nicotine (Verified Adverse Reaction, Unknown, 08/01/20) Pt chews on transdermal patches, please do not give. HEATHER PRAJAPATI DO Aug 14, 2020 09:44
[2020-08-14 16:51] VITALS: BP 108/58
[2020-08-14] MEDS: MAALOX 30 ML SUSP *UDC PO PRN (21:08)
[2020-08-15] MEDS: NICOTINE POLACRILEX 2 MG GUM PO PRN ×4 (00:32→12:33)
[2020-08-15 07:02] VITALS: BP 102/59
[2020-08-15] MEDS: ASCORBIC ACID 250 MG TAB PO SCH (08:07)
[2020-08-15] MEDS: CYANOCOBALAMIN 250 MCG TABLET PO SCH (08:07)
[2020-08-15] MEDS: BENZTROPINE 0.5 MG TAB PO SCH (08:07)
[2020-08-15] MEDS: PYRIDOXINE 50 MG TAB PO SCH (08:08)
[2020-08-15] MEDS: TRIAMCINOLONE ACET 0.1% CREAM 15 GM TOP SCH (08:08)
[2020-08-15] MEDS ORDERED: HALO10TA20 PO (13:26)
--- NOTE | 2020-08-15 13:27 | MHDSPDOC ---
[facility] Discharge Summary Discharge Summary DATE OF ADMISSION: Jul 29, 2020 at 19:51 DATE OF DISCHARGE:Aug 15, 2020 at 13:58 DISCHARGE DIAGNOSES: F25.9 Schizoaffective disorder, unspecified CONSULTANTS INVOLVED:[ None (basic hospitalist screening)] REASON FOR ADMISSION & TREATMENT AND PROGRESS ON THE UNIT : The patient was readmitted to the inpatient mental health unit shortly after being discharged. He did very well and eventually return to her normal mental status exam after quite some time of observation. He was initially triaged for long-term treatment. However, this was decided by the treatment team to not be necessary after he'd make good progress. MEDICATIONS: He was resumed on Abilify and Haldol. He was observed and he did make some progress. It appears as though he may have not been taking his medications consistently after he had left. He was eventually taken off the Abilify due to restlessness and continued on Haldol 10 milligrams BID with positive. He declined the long-acting injectable of Haldol after discussion. However, he did make good progress. DISCHARGE ASSESSMENT[improved] Legal status considerations: The patient at the time of discharge did not meet criteria for involuntary admission/extension due to having a [normal] mental status exam, [fair] insight into the situation, They are engaged in the discharge process, as well as being friendly and amenable in behavioral control and havent been engaging in any observed concerning behavior or ideation recently. They decline voluntary extension/admission at this time and must be discharged in [place], as Im unable to make a case for holding the patient against their will. They may have historical risk factors of admissions and other interactions with psychiatry however, those are not modifiable from a clinical perspective. The patient will need to be discharged in [place]. MENTAL STATUS EXAMINATION ON DISCHARGE: [General: Well dressed with good hygiene Speech: Spontaneous and fluid Thought processes: Linear and logical Thought content: Future orientated Abstract reasoning, and computation: Intact Description of associations: Intact Description of abnormal or psychotic thoughts:Denies any suicidal or homicidal ideation. Denies any auditory or visual hallucinations. Does not appear to be responding to internal stimuli. Does not appear to be endorsing any bizarre or paranoid ideation. Judgment: fair Insight: fair Orientation: Alert and orientated 3 Recent and remote memory: Intact Attention span and concentration: Intact Fund of knowledge: Adequate Mood: "okay" Affect: Euthymic with a full range] PLAN/FOLLOWUP ARRANGEMENTS: Follow up appointments made (PCP and MH in 5 days of D/C date) and safety plan completed. Safety Planning aspects completed prior to discharge [Medication supplies limited to 7 days with 4 refills to prevent accumulation to OD] [RN reviewed crisis hotline information and other aspects to empower patient to access care in interim before next appointment.] The amount of time spent in the coordination of care for this patient was approximately 30 minutes. Vital Signs/I&Os Vital Signs Date Time Temp Pulse Resp B/P (MAP) Pulse Ox O2 Delivery O2 Flow Rate FiO2 08/15/20 07:02 96.9 86 18 102/59 (73) 08/13/20 18:19 100 Room Air Medications Scheduled Ascorbic Acid (Vitamin C) 250 Mg Tablet, 250 MG PO DAILY, (Reported) Benztropine Mesylate (Benztropine Mesylate) 0.5 Mg Tablet, 0.5 MG PO BID, (Reported) Cyanocobalamin (Vitamin B-12) (B-12) 1,000 Mcg Tablet, 1,000 MCG PO DAILY, (Reported) Haloperidol (Haloperidol) 10 Mg Tablet, 10 MG PO BID for mood for 7 Days, #14 Pyridoxine HCl (Vitamin B6) (Vitamin B-6) 50 Mg Tablet, 50 MG PO DAILY, (Reported) Allergies Coded Allergies: Phenothiazines (Verified Allergy, Unknown, 06/26/20) fluphenazine (Verified Allergy, Unknown, 06/26/20) lithium (Verified Allergy, Unknown, 06/26/20) loxapine (Verified Allergy, Unknown, 06/26/20) meperidine (Verified Allergy, Unknown, 06/26/20) thioridazine (Verified Allergy, Unknown, 06/26/20) thiothixene (Verified Allergy, Unknown, 06/26/20) nicotine (Verified Adverse Reaction, Unknown, 08/01/20) Pt chews on transdermal patches, please do not give. HEATHER PRAJAPATI DO Aug 15, 2020 13:27
== END 2020-08-15 13:58 | disposition home or self-care (01) | DRG 750 ==
LOC: M ED 17:05 → M ED INP 19:51 → M PSY 22:06
PROVIDERS: ADMIT Psychiatry & Neurology Addiction Medicine; ATTEND Psychiatry & Neurology Addiction Medicine
DX: F20.0 Paranoid schizophrenia (principal); F41.9 Anxiety disorder, unspecified; F17.200 Nicotine dependence, unspecified, uncomplicated; Z88.8 Allergy status to other drugs, medicaments and biological substances; G47.00 Insomnia, unspecified; Z79.899 Other long term (current) drug therapy

== ENCOUNTER 2020-08-21 13:29 | Inpatient (IN) | payer MEDICARE, MEDICAID ==
[~2020-08-21] VITALS: Ht 172.7 cm; Wt 103.5 kg
[~2020-08-21 13:29] MED LIST changes: +ARIP1TAB6 PO; +B-12100020 PO; +B-650TAB2 PO; +GABA-282 PO; -GABA-843 PO; +VITA1TAB35 PO; +VITA250T4 PO
[2020-08-21] MEDS ORDERED: COGE1INJ IM (13:38)
[2020-08-21] MEDS ORDERED: AZITHROMYCIN 250MG TABLET PO ONE (14:15)
[2020-08-21] MEDS ORDERED: cefTRIAXone SOD 250MG VIAL (J0696 PER 250MG) IM ONE (14:15)
[2020-08-21] MEDS ORDERED: LIDOCAINE 1% SDV 5ML VIAL DILUENT ONE (14:15)
[2020-08-21] MEDS ORDERED: NICOTINE 21MG/24HR 1 EA TRANSDERMAL TD ONE (14:30)
[2020-08-21 14:52] LABS: BASO # 0.1 10^3/uL (0.0-0.2); BASO % 0.7 % (0.0-1.0); EOS # 0.2 10^3/uL (0.0-0.5); EOS % 1.3 % (0.0-3.0); HEMATOCRIT 44.7 % (42.0-52.0); HEMOGLOBIN 14.9 g/dl (13.5-17.5); LYMPH # 2.2 10^3/uL (1.5-5.0); LYMPH % 16.9 % (24.0-44.0); MEAN CORPUSCULAR HEMOGLOBIN 30.9 pg (27.0-33.0); MEAN CORPUSCULAR HGB CONC 33.3 g/dl (32.0-36.5); MEAN CORPUSCULAR VOLUME 92.7 fl (80.0-96.0); MONO # 0.8 10^3/uL (0.0-0.8); MONO % 6.1 % (0.0-5.0); NEUTROPHILS # 9.5 10^3/uL (1.5-8.5); NEUTROPHILS % 74.6 % (36.0-66.0); PLATELET COUNT, AUTOMATED 250 10^3/uL (150-450); RED BLOOD COUNT 4.82 10^6/uL (4.30-6.10); WHITE BLOOD COUNT 12.7 10^3/uL (4.0-10.0)
[2020-08-21] MEDS ORDERED: NICOTINE POLACRILEX 2 MG GUM PO ONE (15:00)
[2020-08-21 15:51] LABS: AMPHETAMINES LEVEL URINE NEGATIVE (NEGATIVE); BARBITURATES URINE NEGATIVE (NEGATIVE); BENZODIAZEPINES URINE NEGATIVE (NEGATIVE); CANNABINOIDS URINE NEGATIVE (NEGATIVE); COCAINE METABOLITE URINE NEGATIVE (NEGATIVE); METHADONE URINE NEGATIVE (NEGATIVE); OPIATES URINE NEGATIVE (NEGATIVE); PHENCYCLIDINE URINE NEGATIVE (NEGATIVE)
[2020-08-21 15:57] LABS: ACETAMINOPHEN LEVEL < 2.0 UG/ML (10.0-30.0); ALBUMIN 3.5 GM/DL (3.2-5.2); ALT/SGPT 41 U/L (12-78); BILIRUBIN,DIRECT 0.2 MG/DL (0.0-0.2); BILIRUBIN,TOTAL 0.5 MG/DL (0.2-1.0); BLOOD UREA NITROGEN 8 MG/DL (7-18); CALCIUM LEVEL 8.9 MG/DL (8.5-10.1); CARBON DIOXIDE LEVEL 25 MEQ/L (21-32); CHLORIDE LEVEL 106 MEQ/L (98-107); CREATININE FOR GFR 0.87 MG/DL (0.70-1.30); ETHYL ALCOHOL (ETHANOL) < 0.003 % (0.000-0.010); GLOMERULAR FILTRATION RATE > 60.0 (>56); GLUCOSE, FASTING 99 MG/DL (70-100); POTASSIUM SERUM 3.9 MEQ/L (3.5-5.1); SALICYLATE LEVEL < 1.7 MG/DL (5.0-30.0); SODIUM LEVEL 138 MEQ/L (136-145); TOTAL PROTEIN 6.9 GM/DL (6.4-8.2)
[2020-08-21 16:18] LABS: HEPATITIS B SURFACE ANTIBODY POSITIVE (POSITIVE)
[2020-08-21 16:29] LABS: HEPATITIS B SURFACE ANTIGEN NEGATIVE (NEGATIVE)
[2020-08-21 16:50] LABS: CHLAMYDIA DNA AMPLIFICATION NEGATIVE (NEGATIVE); GC DNA AMPLIFICATION NEGATIVE (NEGATIVE)
[2020-08-21] MEDS ORDERED: HALO10TA20 PO (16:54)
[2020-08-21] MEDS ORDERED: BENZ0.5T23 PO (16:54)
[2020-08-21 16:57] LABS: HEPATITIS C VIRUS ABY INDEX 0.1 INDEX (<0.8); HIV 1&2 SCREEN CENTAUR NEGATIVE (NEGATIVE)
[2020-08-21] MEDS ORDERED: OLANZapine ORAL DISINTEGRATING TAB 5MG PO PRN (18:00)
--- NOTE | 2020-08-21 19:48 | ECGEPIP ---
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
[2020-08-21] MEDS: BENZTROPINE 0.5 MG TAB PO SCH (21:26)
[2020-08-22 00:42] VITALS: BP 125/76
[2020-08-22 06:50] VITALS: BP 125/76
[2020-08-22] MEDS: BENZTROPINE 0.5 MG TAB PO SCH ×2 (08:19→20:52)
[2020-08-22] MEDS: NICOTINE POLACRILEX 2 MG GUM PO PRN ×5 (08:19→20:52)
[2020-08-22] MEDS: CYANOCOBALAMIN 500 MCG TAB PO SCH (08:21)
[2020-08-22] MEDS: PYRIDOXINE 50 MG TAB PO SCH (08:22)
[2020-08-22] MEDS: ASCORBIC ACID 250 MG TAB PO SCH (08:22)
--- NOTE | 2020-08-22 10:24 | MHHPEPDOC ---
[facility] History & Physical History and Physical DATE OF ADMISSION: Aug 21, 2020 at 17:51 HPI: Attempted to meet with patient today. However, he quickly walked the other way and avoided speaking to me. Patient was recently here admitted for schizophrenia. He did well on Haldol. However, it's unclear if he stopped taking the medication as he appears to have become paranoid about people attempting to hurt him at his home, and he had self-presented. The patient has been unable to engage in any meaningful interview all day. MEDICAL HISTORY: On past medical history of schizoaffective disorder previously placed on Haldol. Refused inaudible only the past. No notable history of suicide attempts. FAMILY HISTORY: Family history has no change from previous. SOCIAL HISTORY - LIVING SITUATION: Lives in [place] apartment SOCIAL HISTORY - SUBSTANCE USE: Has no significant history of substance abuse. Toxicology on the submission was negative. SURGICAL HISTORY: Surgical history reviewed, allergies reviewed. Objective Behavior: Patient walks away. Appeared quite afraid. Did not want to interact. Assessment F25.0 Schizoaffective disorder, bipolar type Plan Continue Haldol 10 mg BID with Cogentin Treatment priorities are 1, altered thoughts. Likely may need long-term treatment or even triaged to [place] due to his significant history. Est imated length of stay is 5-10 days. Vital Signs Vital Signs Date Time Temp Pulse Resp B/P (MAP) Pulse Ox O2 Delivery O2 Flow Rate FiO2 08/22/20 06:50 99.1 86 16 125/76 (92) Room Air 08/22/20 00:42 98 Laboratory Data 24H Labs Laboratory Tests 2 08/21/20 14:39: Immature Granulocyte % (Auto) 0.4, Neutrophils (%) (Auto) 74.6H, Lymphocytes (%) (Auto) 16.9L, Monocytes (%) (Auto) 6.1H, Eosinophils (%) (Auto) 1.3, Basophils (%) (Auto) 0.7, Neutrophils # (Auto) 9.5H, Lymphocytes # (Auto) 2.2, Monocytes # (Auto) 0.8, Eosinophils # (Auto) 0.2, Basophils # (Auto) 0.1, Nucleated Red Blood Cells % (auto) 0.0, Anion Gap 7L, Glomerular Filtration Rate > 60.0, Calcium Level 8.9, Total Bilirubin 0.5, Direct Bilirubin 0.2, Aspartate Amino Transf (AST/SGOT) 28, Alanine Aminotransferase (ALT/SGPT) 41, Alkaline Phosphatase 72, Total Protein 6.9, Albumin 3.5, Albumin/Globulin Ratio 1.0, Thyroid Stimulating Hormone (TSH) 1.490, Salicylates Level < 1.7L, Acetaminophen Level < 2.0L, Ethyl Alcohol Level < 0.003, Syphilis Serology NONREACTIVE, Hepatitis B Surface Antigen NEGATIVE, Hepatitis B Surface Antibody POSITIVE, Hepatitis C Antibody Index 0.1, HIV Antigen/Antibody Combo Qual NEGATIVE 08/21/20 15:09: Urine Opiates Screen NEGATIVE, Urine Methadone Screen NEGATIVE, Urine Barbiturates Screen NEGATIVE, Urine Phencyclidine Screen NEGATIVE, Urine Amphetamines Screen NEGATIVE, Urine Benzodiazepines Screen NEGATIVE, Urine Cocaine Metabolite Screen NEGATIVE, Urine Cannabinoids Screen NEGATIVE, Chlamydia trachomatis DNA (MIGUEL) NEGATIVE, Neisseria gonorrhoeae DNA (MIGUEL) NEGATIVE CBC/BMP Laboratory Tests 08/21/20 14:39 Medications Scheduled Benztropine Mesylate (Benztropine Mesylate) 0.5 Mg Tablet, 0.5 MG PO BID, (Reported) Haloperidol (Haloperidol) 10 Mg Tablet, 10 MG PO BID, (Reported) Allergies Coded Allergies: Phenothiazines (Verified Allergy, Unknown, 06/26/20) fluphenazine (Verified Allergy, Unknown, 06/26/20) lithium (Verified Allergy, Unknown, 06/26/20) loxapine (Verified Allergy, Unknown, 06/26/20) meperidine (Verified Allergy, Unknown, 06/26/20) thioridazine (Verified Allergy, Unknown, 06/26/20) thiothixene (Verified Allergy, Unknown, 06/26/20) nicotine (Verified Adverse Reaction, Unknown, 08/01/20) Pt chews on transdermal patches, please do not give. HEATHER PRAJAPATI DO Aug 22, 2020 10:24
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
[2020-08-23] MEDS: NICOTINE POLACRILEX 2 MG GUM PO PRN ×5 (03:32→21:38)
[2020-08-23] MEDS ORDERED: haloperidoL 5 MG TAB PO ONE (04:45)
[2020-08-23 06:54] VITALS: BP 120/74
[2020-08-23] MEDS: CYANOCOBALAMIN 500 MCG TAB PO SCH (09:00)
[2020-08-23] MEDS: PYRIDOXINE 50 MG TAB PO SCH (09:00)
[2020-08-23] MEDS: ASCORBIC ACID 250 MG TAB PO SCH (09:00)
[2020-08-23] MEDS: BENZTROPINE 0.5 MG TAB PO SCH ×2 (09:30→21:38)
--- NOTE | 2020-08-23 10:41 | MHIPNPDOC ---
[facility] Progress Note Progress Note DATE OF SERVICE: 08/23/20 Subjective HPI: Attempted to meet with patient today, but refused to meet. He does not make any eye contact. Objective Appearance: patient sitting, does not want to meet and refused interview. . Assessment F25.0 Schizoaffective disorder, bipolar type Plan Continue Haldol 5 mg bid. Change Zyprexa to Haldol PRN as patient is more likely to use it. Vital Signs Vital Signs Date Time Temp Pulse Resp B/P (MAP) Pulse Ox O2 Delivery O2 Flow Rate FiO2 08/23/20 06:54 98.0 104 18 120/74 (89) 97 Room Air Current Medications Current Medications Medications (Trade) Dose Ordered Sig/Jovany Route PRN Reason Start Time Stop Time Status Last Admin Dose Admin Acetaminophen (Tylenol Tab) 650 mg Q6HP PRN PO HEADACHE or DISCOMFORT 08/21/20 18:00 Al Hydrox/Mg Hydrox/Simethicone (Mylanta) 30 ml Q4HP PRN PO HEARTBURN/INDIGESTION 08/21/20 18:00 Ascorbic Acid (Vitamin C) 250 mg DAILY PO 08/22/20 09:00 Benztropine Mesylate (Cogentin) 0.5 mg BID PO 08/21/20 21:00 08/23/20 09:30 Cyanocobalamin (Vitamin B12) 1,000 mcg DAILY PO 08/22/20 09:00 Haloperidol (Haldol) 10 mg BID PO 08/21/20 21:00 08/23/20 09:30 Home Med (Med Rec Complete!) ASDIRECTED XX 08/21/20 17:00 08/21/20 16:56 DC Magnesium Hydroxide (Milk Of Magnesia) 30 ml DAILYPRN PRN PO CONSTIPATION 08/21/20 18:00 Nicotine (Nicorette) 2 mg Q4HP PRN PO NICOTINE WITHDRAWAL 08/22/20 08:00 08/23/20 07:33 Olanzapine (ZyPREXA ZYDIS) 5 mg Q6HP PRN PO AGITATION 08/21/20 18:00 Pyridoxine HCl (Vitamin B6) 50 mg DAILY PO 08/22/20 09:00 Trazodone HCl (Desyrel) 50 mg QHSP PRN PO INSOMNIA 08/21/20 18:00 Allergies Coded Allergies: Phenothiazines (Verified Allergy, Unknown, 06/26/20) fluphenazine (Verified Allergy, Unknown, 06/26/20) lithium (Verified Allergy, Unknown, 06/26/20) loxapine (Verified Allergy, Unknown, 06/26/20) meperidine (Verified Allergy, Unknown, 06/26/20) thioridazine (Verified Allergy, Unknown, 06/26/20) thiothixene (Verified Allergy, Unknown, 06/26/20) nicotine (Verified Adverse Reaction, Unknown, 08/01/20) Pt chews on transdermal patches, please do not give. HEATHER PRAJAPATI DO Aug 23, 2020 10:41
[2020-08-23 18:17] VITALS: BP 135/74
[2020-08-24] MEDS: MAALOX 30 ML SUSP *UDC PO PRN (01:16)
[2020-08-24] MEDS: NICOTINE POLACRILEX 2 MG GUM PO PRN ×5 (05:44→22:00)
[2020-08-24] MEDS: BENZTROPINE 0.5 MG TAB PO SCH ×2 (08:17→19:47)
[2020-08-24] MEDS: ASCORBIC ACID 250 MG TAB PO SCH (08:18)
[2020-08-24] MEDS: PYRIDOXINE 50 MG TAB PO SCH (08:18)
[2020-08-24] MEDS: CYANOCOBALAMIN 500 MCG TAB PO SCH (08:18)
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
[2020-08-24 18:17] VITALS: BP 145/68
[2020-08-25] MEDS: NICOTINE POLACRILEX 2 MG GUM PO PRN ×4 (04:57→19:20)
[2020-08-25] MEDS: BENZTROPINE 0.5 MG TAB PO SCH ×2 (08:08→20:13)
[2020-08-25] MEDS: CYANOCOBALAMIN 500 MCG TAB PO SCH (09:00)
[2020-08-25] MEDS: ASCORBIC ACID 250 MG TAB PO SCH (09:00)
[2020-08-25] MEDS: PYRIDOXINE 50 MG TAB PO SCH (09:00)
--- NOTE | 2020-08-25 10:08 | MHIPNPDOC ---
[facility] Progress Note Progress Note DATE OF SERVICE: 08/25/20 HPI: The patient's met with today. He's generally sleeping and states that everything's fine. He reports he has no problems with his medications. Still somewhat paranoid about his home. He reports that the medication is helpful. Otherwise, faces away laying in bed. Objective Behavior: Laying in bed quiet. Speech: Has little to say. Thanks me for checking in on him. Assessment F25.0 Schizoaffective disorder, bipolar type Plan Continue Haldol 10 milligrams BID and Cogentin. Well possibly pursue transfer to [place]. Not making great progress. May eventually need long-term. However, Haldol Decanoate could be ideal as he does appear to decompensate, likely from not taking his medications. Vital Signs Vital Signs Date Time Temp Pulse Resp B/P (MAP) Pulse Ox O2 Delivery O2 Flow Rate FiO2 08/24/20 18:17 98.4 105 17 145/68 (93) 08/23/20 18:17 74 08/23/20 06:54 Room Air Current Medications Current Medications Medications (Trade) Dose Ordered Sig/Jovany Route PRN Reason Start Time Stop Time Status Last Admin Dose Admin Acetaminophen (Tylenol Tab) 650 mg Q6HP PRN PO HEADACHE or DISCOMFORT 08/21/20 18:00 Al Hydrox/Mg Hydrox/Simethicone (Mylanta) 30 ml Q4HP PRN PO HEARTBURN/INDIGESTION 08/21/20 18:00 08/24/20 01:16 Ascorbic Acid (Vitamin C) 250 mg DAILY PO 08/22/20 09:00 Benztropine Mesylate (Cogentin) 0.5 mg BID PO 08/21/20 21:00 08/25/20 08:08 Cyanocobalamin (Vitamin B12) 1,000 mcg DAILY PO 08/22/20 09:00 Haloperidol (Haldol) 5 mg Q4HP PRN PO AGITATION 08/23/20 15:30 Haloperidol (Haldol) 10 mg BID PO 08/21/20 21:00 08/25/20 08:08 Home Med (Med Rec Complete!) ASDIRECTED XX 08/21/20 17:00 08/21/20 16:56 DC Magnesium Hydroxide (Milk Of Magnesia) 30 ml DAILYPRN PRN PO CONSTIPATION 08/21/20 18:00 Nicotine (Nicorette) 2 mg Q4HP PRN PO NICOTINE WITHDRAWAL 08/22/20 08:00 08/25/20 04:57 Olanzapine (ZyPREXA ZYDIS) 5 mg Q6HP PRN PO AGITATION 08/21/20 18:00 Cancel Pyridoxine HCl (Vitamin B6) 50 mg DAILY PO 08/22/20 09:00 Trazodone HCl (Desyrel) 50 mg QHSP PRN PO INSOMNIA 08/21/20 18:00 Allergies Coded Allergies: Phenothiazines (Verified Allergy, Unknown, 06/26/20) fluphenazine (Verified Allergy, Unknown, 06/26/20) lithium (Verified Allergy, Unknown, 06/26/20) loxapine (Verified Allergy, Unknown, 06/26/20) meperidine (Verified Allergy, Unknown, 06/26/20) thioridazine (Verified Allergy, Unknown, 06/26/20) thiothixene (Verified Allergy, Unknown, 06/26/20) nicotine (Verified Adverse Reaction, Unknown, 08/01/20) Pt chews on transdermal patches, please do not give. HEATHER PRAJAPATI DO Aug 25, 2020 10:08
[2020-08-25 18:42] VITALS: BP 134/71
[2020-08-26] MEDS: NICOTINE POLACRILEX 2 MG GUM PO PRN ×5 (02:05→18:37)
[2020-08-26 07:10] VITALS: BP 112/67
[2020-08-26] MEDS: BENZTROPINE 0.5 MG TAB PO SCH ×2 (08:00→20:18)
[2020-08-26] MEDS: CYANOCOBALAMIN 500 MCG TAB PO SCH (08:00)
[2020-08-26] MEDS: ASCORBIC ACID 250 MG TAB PO SCH (08:00)
[2020-08-26] MEDS: PYRIDOXINE 50 MG TAB PO SCH (08:00)
[2020-08-27] MEDS: NICOTINE POLACRILEX 2 MG GUM PO PRN ×4 (03:21→15:32)
[2020-08-27] MEDS: haloperidoL 5 MG TAB PO PRN ×2 (05:20→18:14)
[2020-08-27 06:53] VITALS: BP 135/72
[2020-08-27] MEDS: CYANOCOBALAMIN 500 MCG TAB PO SCH (08:06)
[2020-08-27] MEDS: BENZTROPINE 0.5 MG TAB PO SCH ×2 (08:06→20:01)
[2020-08-27] MEDS: PYRIDOXINE 50 MG TAB PO SCH (08:07)
[2020-08-27] MEDS: ASCORBIC ACID 250 MG TAB PO SCH (08:07)
[2020-08-27 18:53] VITALS: BP 126/78
[2020-08-28] MEDS: NICOTINE POLACRILEX 2 MG GUM PO PRN ×4 (02:54→19:37)
[2020-08-28] MEDS: haloperidoL 5 MG TAB PO PRN (04:28)
[2020-08-28 06:10] VITALS: BP 98/74
--- NOTE | 2020-08-28 07:46 | MHIPN ---
PSYCHIATRIC DATE: 08/26/2020 The patient today states "I am here for mental health reasons," but he really cannot elaborate at all why he is in the hospital. He then says, "I came here because I thought was going to be arrested." He says that he is sleeping all day and sometimes at night. He is denying any suicidal thoughts. MENTAL STATUS EXAMINATION: The patient again is very difficult, and I cannot fully do a mental status exam, as I cannot get him to say anything more than what I have noted above. He just repeats the same thing again. DIAGNOSIS: Schizoaffective disorder, bipolar type. TREATMENT PLAN: We will continue to monitor the patient for what appears to be significant psychotic symptoms. TERRANCE
[2020-08-28] MEDS: ASCORBIC ACID 250 MG TAB PO SCH (08:04)
[2020-08-28] MEDS: PYRIDOXINE 50 MG TAB PO SCH (08:04)
[2020-08-28] MEDS: CYANOCOBALAMIN 500 MCG TAB PO SCH (08:04)
[2020-08-28] MEDS: BENZTROPINE 0.5 MG TAB PO SCH (08:05)
[2020-08-28 16:08] VITALS: BP 123/61
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
[2020-08-29] MEDS: BENZTROPINE 0.5 MG TAB PO SCH ×3 (00:45→20:15)
[2020-08-29] MEDS: NICOTINE POLACRILEX 2 MG GUM PO PRN ×6 (00:45→22:59)
[2020-08-29] MEDS: haloperidoL 5 MG TAB PO PRN (05:36)
[2020-08-29 06:46] VITALS: BP 113/76
[2020-08-29] MEDS: ASCORBIC ACID 250 MG TAB PO SCH (07:59)
[2020-08-29] MEDS: PYRIDOXINE 50 MG TAB PO SCH (07:59)
[2020-08-29] MEDS: CYANOCOBALAMIN 500 MCG TAB PO SCH (07:59)
--- NOTE | 2020-08-29 10:41 | MHIPNPDOC ---
[facility] Progress Note Progress Note DATE OF SERVICE: 08/29/20 Subjective HPI: Albino presents today for a brief meeting. He still reports paranoid thoughts that people are breaking into his apartment and that hes in danger. He generally has been isolative sometimes and isnt engaging much on the unit. He reports no major problems from the Haldol but reports sometimes he becomes tired. Objective Affect: Appropriate to context. Flat but still reactive at times. Thought Form: Linear and goal directed. Circumstantial around paranoid beliefs of his apartment. Judgement: Poor to fair. Insight: Poor to fair. Assessment F29 Unspecified psychosis not due to a substance or known physiological condition Plan Continue Haldol 10 mg BID. Suspicion that he has not been taken this at home. He would do best to end the CR program, and he agrees. Will see if this is an option versus long-term care at [facility], although his multiple readmission suggests that if this cant be facilitated, he would need long-term care. Vital Signs Vital Signs Date Time Temp Pulse Resp B/P (MAP) Pulse Ox O2 Delivery O2 Flow Rate FiO2 08/29/20 06:46 98.0 76 14 113/76 (88) 08/28/20 06:10 96 Room Air Current Medications Current Medications Medications (Trade) Dose Ordered Sig/Jovany Route PRN Reason Start Time Stop Time Status Last Admin Dose Admin Acetaminophen (Tylenol Tab) 650 mg Q6HP PRN PO HEADACHE or DISCOMFORT 08/21/20 18:00 Al Hydrox/Mg Hydrox/Simethicone (Mylanta) 30 ml Q4HP PRN PO HEARTBURN/INDIGESTION 08/21/20 18:00 08/24/20 01:16 Ascorbic Acid (Vitamin C) 250 mg DAILY PO 08/22/20 09:00 Benztropine Mesylate (Cogentin) 0.5 mg BID PO 08/21/20 21:00 08/29/20 07:59 Cyanocobalamin (Vitamin B12) 1,000 mcg DAILY PO 08/22/20 09:00 Haloperidol (Haldol) 5 mg Q4HP PRN PO AGITATION 08/23/20 15:30 08/29/20 05:36 Haloperidol (Haldol) 10 mg BID PO 08/21/20 21:00 08/29/20 07:59 Home Med (Med Rec Complete!) ASDIRECTED XX 08/21/20 17:00 08/21/20 16:56 DC Magnesium Hydroxide (Milk Of Magnesia) 30 ml DAILYPRN PRN PO CONSTIPATION 08/21/20 18:00 Nicotine (Nicorette) 2 mg Q4HP PRN PO NICOTINE WITHDRAWAL 08/22/20 08:00 08/29/20 08:55 Olanzapine (ZyPREXA ZYDIS) 5 mg Q6HP PRN PO AGITATION 08/21/20 18:00 Cancel Pyridoxine HCl (Vitamin B6) 50 mg DAILY PO 08/22/20 09:00 Trazodone HCl (Desyrel) 50 mg QHSP PRN PO INSOMNIA 08/21/20 18:00 Allergies Coded Allergies: Phenothiazines (Verified Allergy, Unknown, 06/26/20) fluphenazine (Verified Allergy, Unknown, 06/26/20) lithium (Verified Allergy, Unknown, 06/26/20) loxapine (Verified Allergy, Unknown, 06/26/20) meperidine (Verified Allergy, Unknown, 06/26/20) thioridazine (Verified Allergy, Unknown, 06/26/20) thiothixene (Verified Allergy, Unknown, 06/26/20) nicotine (Verified Adverse Reaction, Unknown, 08/01/20) Pt chews on transdermal patches, please do not give. HEATHER PRAJAPATI DO Aug 29, 2020 10:41
[2020-08-29 16:32] VITALS: BP 113/64
[2020-08-30] MEDS: NICOTINE POLACRILEX 2 MG GUM PO PRN ×4 (05:02→20:07)
[2020-08-30 07:19] VITALS: BP 123/68
[2020-08-30] MEDS: CYANOCOBALAMIN 500 MCG TAB PO SCH (08:01)
[2020-08-30] MEDS: PYRIDOXINE 50 MG TAB PO SCH (08:02)
[2020-08-30] MEDS: BENZTROPINE 0.5 MG TAB PO SCH ×2 (08:02→20:07)
[2020-08-30] MEDS: ASCORBIC ACID 250 MG TAB PO SCH (08:02)
--- NOTE | 2020-08-30 10:39 | MHIPNPDOC ---
[facility] Progress Note Progress Note DATE OF SERVICE: 08/30/20 HPI: Albino was met with today for a mental health exam. He was sleeping but woke up for me for a short time. Albino reports still feeling that people are out to get him and feels somewhat upset about being brought back here. He still thinks people are stealing his things at home. He denies suicidal or homicidal ideation, but appears quite dysthymic and paranoid. MEDICATIONS: He reported that he had been taking some PRNs but was unable to describe what he was feeling or the rationale as to why he was taking them. Objective Affect: Flat with little reactivity. Thought Form: Linear at times. Associations are mildly loosened. Thought Content: No thoughts of self harm. No evidence of aggressive or homicidal ideation. No evidence of delusions. No evidence of suicidal ideation. Paranoid ideation. Assessment F25.0 Schizoaffective disorder, bipolar type Plan Continue Haldol. Will give patients some time to resolve. Will continue to see if CR is an option or if long-term treatment. He would make an ideal AOT candidate and will try to advocate for this. Vital Signs Vital Signs Date Time Temp Pulse Resp B/P (MAP) Pulse Ox O2 Delivery O2 Flow Rate FiO2 08/30/20 07:19 96.9 110 18 123/68 (86) 08/28/20 06:10 96 Room Air Current Medications Current Medications Medications (Trade) Dose Ordered Sig/Jovany Route PRN Reason Start Time Stop Time Status Last Admin Dose Admin Acetaminophen (Tylenol Tab) 650 mg Q6HP PRN PO HEADACHE or DISCOMFORT 08/21/20 18:00 Al Hydrox/Mg Hydrox/Simethicone (Mylanta) 30 ml Q4HP PRN PO HEARTBURN/INDIGESTION 08/21/20 18:00 08/24/20 01:16 Ascorbic Acid (Vitamin C) 250 mg DAILY PO 08/22/20 09:00 Benztropine Mesylate (Cogentin) 0.5 mg BID PO 08/21/20 21:00 08/30/20 08:02 Cyanocobalamin (Vitamin B12) 1,000 mcg DAILY PO 08/22/20 09:00 Haloperidol (Haldol) 5 mg Q4HP PRN PO AGITATION 08/23/20 15:30 08/29/20 05:36 Haloperidol (Haldol) 10 mg BID PO 08/21/20 21:00 08/30/20 08:02 Home Med (Med Rec Complete!) ASDIRECTED XX 08/21/20 17:00 08/21/20 16:56 DC Magnesium Hydroxide (Milk Of Magnesia) 30 ml DAILYPRN PRN PO CONSTIPATION 08/21/20 18:00 Nicotine (Nicorette) 2 mg Q4HP PRN PO NICOTINE WITHDRAWAL 08/22/20 08:00 08/30/20 08:58 Olanzapine (ZyPREXA ZYDIS) 5 mg Q6HP PRN PO AGITATION 08/21/20 18:00 Cancel Pyridoxine HCl (Vitamin B6) 50 mg DAILY PO 08/22/20 09:00 Trazodone HCl (Desyrel) 50 mg QHSP PRN PO INSOMNIA 08/21/20 18:00 Allergies Coded Allergies: Phenothiazines (Verified Allergy, Unknown, 06/26/20) fluphenazine (Verified Allergy, Unknown, 06/26/20) lithium (Verified Allergy, Unknown, 06/26/20) loxapine (Verified Allergy, Unknown, 06/26/20) meperidine (Verified Allergy, Unknown, 06/26/20) thioridazine (Verified Allergy, Unknown, 06/26/20) thiothixene (Verified Allergy, Unknown, 06/26/20) nicotine (Verified Adverse Reaction, Unknown, 08/01/20) Pt chews on transdermal patches, please do not give. HEATHER PRAJAPATI DO Aug 30, 2020 10:39
[2020-08-30 16:45] VITALS: BP 122/70
[2020-08-30] MEDS: haloperidoL 5 MG TAB PO PRN (18:05)
[2020-08-31] MEDS: NICOTINE POLACRILEX 2 MG GUM PO PRN ×4 (03:46→19:09)
[2020-08-31] MEDS: haloperidoL 5 MG TAB PO PRN ×2 (05:22→17:59)
[2020-08-31 06:46] VITALS: BP 113/78
[2020-08-31] MEDS: BENZTROPINE 0.5 MG TAB PO SCH ×2 (08:06→20:26)
[2020-08-31] MEDS: ASCORBIC ACID 250 MG TAB PO SCH (08:06)
[2020-08-31] MEDS: PYRIDOXINE 50 MG TAB PO SCH (08:06)
[2020-08-31] MEDS: CYANOCOBALAMIN 500 MCG TAB PO SCH (08:06)
--- NOTE | 2020-08-31 11:13 | MHIPNPDOC ---
[facility] Progress Note Progress Note DATE OF SERVICE: 08/31/20 Subjective HPI: The patient was met with today. Wants to go to the otherwise is isolative on the unit MEDICATIONS: He reports that the Haldol is helpful, still feels somewhat paranoid at times. Objective Behavior: Associations are more intact. still Highly paranoid. Affect: Flat. Speech: Fluid. Thought Content: No suicidal homicidal ideation elicited. Judgement: Poor to fair. Insight: Poor to fair. Assessment F25.9 Schizoaffective disorder, unspecified Plan Continue Haldol as a current. Takes quite a bit of time to resolve. Well see about trying to get patient to either the or [place] if this is not reasonable. Vital Signs Vital Signs Date Time Temp Pulse Resp B/P (MAP) Pulse Ox O2 Delivery O2 Flow Rate FiO2 08/31/20 06:46 97.7 101 18 113/78 (90) 95 Room Air Current Medications Current Medications Medications (Trade) Dose Ordered Sig/Jovany Route PRN Reason Start Time Stop Time Status Last Admin Dose Admin Acetaminophen (Tylenol Tab) 650 mg Q6HP PRN PO HEADACHE or DISCOMFORT 08/21/20 18:00 Al Hydrox/Mg Hydrox/Simethicone (Mylanta) 30 ml Q4HP PRN PO HEARTBURN/INDIGESTION 08/21/20 18:00 08/24/20 01:16 Ascorbic Acid (Vitamin C) 250 mg DAILY PO 08/22/20 09:00 08/31/20 08:06 Benztropine Mesylate (Cogentin) 0.5 mg BID PO 08/21/20 21:00 08/31/20 08:06 Cyanocobalamin (Vitamin B12) 1,000 mcg DAILY PO 08/22/20 09:00 08/31/20 08:06 Haloperidol (Haldol) 5 mg Q4HP PRN PO AGITATION 08/23/20 15:30 08/31/20 05:22 Haloperidol (Haldol) 10 mg BID PO 08/21/20 21:00 08/31/20 08:06 Home Med (Med Rec Complete!) ASDIRECTED XX 08/21/20 17:00 08/21/20 16:56 DC Magnesium Hydroxide (Milk Of Magnesia) 30 ml DAILYPRN PRN PO CONSTIPATION 08/21/20 18:00 Nicotine (Nicorette) 2 mg Q4HP PRN PO NICOTINE WITHDRAWAL 08/22/20 08:00 08/31/20 08:57 Olanzapine (ZyPREXA ZYDIS) 5 mg Q6HP PRN PO AGITATION 08/21/20 18:00 Cancel Pyridoxine HCl (Vitamin B6) 50 mg DAILY PO 08/22/20 09:00 08/31/20 08:06 Trazodone HCl (Desyrel) 50 mg QHSP PRN PO INSOMNIA 08/21/20 18:00 Allergies Coded Allergies: Phenothiazines (Verified Allergy, Unknown, 06/26/20) fluphenazine (Verified Allergy, Unknown, 06/26/20) lithium (Verified Allergy, Unknown, 06/26/20) loxapine (Verified Allergy, Unknown, 06/26/20) meperidine (Verified Allergy, Unknown, 06/26/20) thioridazine (Verified Allergy, Unknown, 06/26/20) thiothixene (Verified Allergy, Unknown, 06/26/20) nicotine (Verified Adverse Reaction, Unknown, 08/01/20) Pt chews on transdermal patches, please do not give. HEATHER PRAJAPATI DO Aug 31, 2020 11:13
[2020-08-31 17:25] VITALS: BP 109/66
[2020-09-01] MEDS: NICOTINE POLACRILEX 2 MG GUM PO PRN ×4 (03:46→17:53)
[2020-09-01] MEDS: haloperidoL 5 MG TAB PO PRN ×2 (04:37→10:10)
[2020-09-01 06:51] VITALS: BP 115/83
[2020-09-01] MEDS: BENZTROPINE 0.5 MG TAB PO SCH ×2 (08:00→20:15)
[2020-09-01] MEDS: ASCORBIC ACID 250 MG TAB PO SCH (09:00)
[2020-09-01] MEDS: PYRIDOXINE 50 MG TAB PO SCH (09:00)
[2020-09-01] MEDS: CYANOCOBALAMIN 500 MCG TAB PO SCH (09:00)
--- NOTE | 2020-09-01 10:16 | MHIPNPDOC ---
[facility] Progress Note Progress Note DATE OF SERVICE: 09/01/20 HPI: Albino was attempted to be met with. MEDICATIONS: He recently took PRNs and was quite sedated as he was sleeping comfortably. Objective Appearance: Sleeping comfortably. No distress. Assessment F25.9 Schizoaffective disorder, unspecified Plan Continue Haldol as current. Will consider Lowering patients PRN as it leaves him sedated. He takes quite some time to improve as [facility] is the current focus of treatment. CR possibly, however unlikely. Vital Signs Vital Signs Date Time Temp Pulse Resp B/P (MAP) Pulse Ox O2 Delivery O2 Flow Rate FiO2 09/01/20 06:51 97.7 98 18 115/83 (94) 99 Room Air Current Medications Current Medications Medications (Trade) Dose Ordered Sig/Jovany Route PRN Reason Start Time Stop Time Status Last Admin Dose Admin Acetaminophen (Tylenol Tab) 650 mg Q6HP PRN PO HEADACHE or DISCOMFORT 08/21/20 18:00 Al Hydrox/Mg Hydrox/Simethicone (Mylanta) 30 ml Q4HP PRN PO HEARTBURN/INDIGESTION 08/21/20 18:00 08/24/20 01:16 Ascorbic Acid (Vitamin C) 250 mg DAILY PO 08/22/20 09:00 08/31/20 08:06 Benztropine Mesylate (Cogentin) 0.5 mg BID PO 08/21/20 21:00 09/01/20 08:00 Cyanocobalamin (Vitamin B12) 1,000 mcg DAILY PO 08/22/20 09:00 08/31/20 08:06 Haloperidol (Haldol) 5 mg Q4HP PRN PO AGITATION 08/23/20 15:30 09/01/20 10:10 Haloperidol (Haldol) 10 mg BID PO 08/21/20 21:00 09/01/20 08:00 Home Med (Med Rec Complete!) ASDIRECTED XX 08/21/20 17:00 08/21/20 16:56 DC Magnesium Hydroxide (Milk Of Magnesia) 30 ml DAILYPRN PRN PO CONSTIPATION 08/21/20 18:00 Nicotine (Nicorette) 2 mg Q4HP PRN PO NICOTINE WITHDRAWAL 08/22/20 08:00 09/01/20 08:00 Olanzapine (ZyPREXA ZYDIS) 5 mg Q6HP PRN PO AGITATION 08/21/20 18:00 Cancel Pyridoxine HCl (Vitamin B6) 50 mg DAILY PO 08/22/20 09:00 08/31/20 08:06 Trazodone HCl (Desyrel) 50 mg QHSP PRN PO INSOMNIA 08/21/20 18:00 Allergies Coded Allergies: Phenothiazines (Verified Allergy, Unknown, 06/26/20) fluphenazine (Verified Allergy, Unknown, 06/26/20) lithium (Verified Allergy, Unknown, 06/26/20) loxapine (Verified Allergy, Unknown, 06/26/20) meperidine (Verified Allergy, Unknown, 06/26/20) thioridazine (Verified Allergy, Unknown, 06/26/20) thiothixene (Verified Allergy, Unknown, 06/26/20) nicotine (Verified Adverse Reaction, Unknown, 08/01/20) Pt chews on transdermal patches, please do not give. HEATHER PRAJAPATI DO Sep 01, 2020 10:16
[2020-09-01 16:10] VITALS: BP 132/79
[2020-09-02] MEDS: NICOTINE POLACRILEX 2 MG GUM PO PRN ×5 (03:18→19:55)
[2020-09-02] MEDS: haloperidoL 5 MG TAB PO PRN (03:52)
[2020-09-02 06:09] VITALS: BP 103/63
[2020-09-02] MEDS: PYRIDOXINE 50 MG TAB PO SCH (08:04)
[2020-09-02] MEDS: ASCORBIC ACID 250 MG TAB PO SCH (08:04)
[2020-09-02] MEDS: CYANOCOBALAMIN 500 MCG TAB PO SCH (08:04)
[2020-09-02] MEDS: BENZTROPINE 0.5 MG TAB PO SCH ×2 (08:05→19:54)
[2020-09-02 16:24] VITALS: BP_SYST 122; BP_SYST 140; BP_DIAS 77
[2020-09-02] MEDS: GABAPENTIN 300 MG CAP PO SCH ×2 (19:30→19:54)
[2020-09-03] MEDS: NICOTINE POLACRILEX 2 MG GUM PO PRN ×5 (04:54→21:13)
[2020-09-03 06:12] VITALS: BP 145/94
[2020-09-03] MEDS: CYANOCOBALAMIN 500 MCG TAB PO SCH (08:02)
[2020-09-03] MEDS: ASCORBIC ACID 250 MG TAB PO SCH (08:02)
[2020-09-03] MEDS: BENZTROPINE 0.5 MG TAB PO SCH ×2 (08:02→20:00)
[2020-09-03] MEDS: PYRIDOXINE 50 MG TAB PO SCH (08:02)
[2020-09-03] MEDS: GABAPENTIN 300 MG CAP PO SCH ×3 (08:02→20:00)
[2020-09-03 16:27] VITALS: BP 137/60
[2020-09-04] MEDS: NICOTINE POLACRILEX 2 MG GUM PO PRN ×5 (04:46→21:35)
[2020-09-04] MEDS: haloperidoL 5 MG TAB PO PRN (05:42)
[2020-09-04 06:31] VITALS: BP 133/73
[2020-09-04] MEDS: BENZTROPINE 0.5 MG TAB PO SCH ×2 (08:01→19:58)
[2020-09-04] MEDS: GABAPENTIN 300 MG CAP PO SCH ×3 (08:01→19:58)
[2020-09-04] MEDS: PYRIDOXINE 50 MG TAB PO SCH (08:02)
[2020-09-04] MEDS: ASCORBIC ACID 250 MG TAB PO SCH (08:02)
[2020-09-04] MEDS: CYANOCOBALAMIN 500 MCG TAB PO SCH (08:02)
--- NOTE | 2020-09-04 11:12 | MHIPNPDOC ---
[facility] Progress Note Progress Note DATE OF SERVICE: 09/04/20 Subjective HPI: Albino presents today for wellness check. Patient reports feeling fine. He states he doesnt engage much and is found to be sleeping without much interest in engaging in any reasonable interview. Objective Behavior: Does not want to engage in interview. Assessment F25.9 Schizoaffective disorder, unspecified Plan Continue Haldol 10 mg. Vital Signs Vital Signs Date Time Temp Pulse Resp B/P (MAP) Pulse Ox O2 Delivery O2 Flow Rate FiO2 09/04/20 06:31 98.7 80 14 133/73 (93) Room Air 09/03/20 06:12 94 Current Medications Current Medications Medications (Trade) Dose Ordered Sig/Jovany Route PRN Reason Start Time Stop Time Status Last Admin Dose Admin Acetaminophen (Tylenol Tab) 650 mg Q6HP PRN PO HEADACHE or DISCOMFORT 08/21/20 18:00 Al Hydrox/Mg Hydrox/Simethicone (Mylanta) 30 ml Q4HP PRN PO HEARTBURN/INDIGESTION 08/21/20 18:00 08/24/20 01:16 Ascorbic Acid (Vitamin C) 250 mg DAILY PO 08/22/20 09:00 08/31/20 08:06 Benztropine Mesylate (Cogentin) 0.5 mg BID PO 08/21/20 21:00 09/04/20 08:01 Cyanocobalamin (Vitamin B12) 1,000 mcg DAILY PO 08/22/20 09:00 08/31/20 08:06 Gabapentin (Neurontin) 300 mg TID PO 09/02/20 16:00 09/04/20 08:01 Haloperidol (Haldol) 5 mg Q4HP PRN PO AGITATION 08/23/20 15:30 09/04/20 05:42 Haloperidol (Haldol) 10 mg BID PO 08/21/20 21:00 09/04/20 08:01 Home Med (Med Rec Complete!) ASDIRECTED XX 08/21/20 17:00 08/21/20 16:56 DC Magnesium Hydroxide (Milk Of Magnesia) 30 ml DAILYPRN PRN PO CONSTIPATION 08/21/20 18:00 Nicotine (Nicorette) 2 mg Q4HP PRN PO NICOTINE WITHDRAWAL 08/22/20 08:00 09/04/20 09:04 Olanzapine (ZyPREXA ZYDIS) 5 mg Q6HP PRN PO AGITATION 08/21/20 18:00 Cancel Pyridoxine HCl (Vitamin B6) 50 mg DAILY PO 08/22/20 09:00 08/31/20 08:06 Trazodone HCl (Desyrel) 50 mg QHSP PRN PO INSOMNIA 08/21/20 18:00 Allergies Coded Allergies: Phenothiazines (Verified Allergy, Unknown, 06/26/20) fluphenazine (Verified Allergy, Unknown, 06/26/20) lithium (Verified Allergy, Unknown, 06/26/20) loxapine (Verified Allergy, Unknown, 06/26/20) meperidine (Verified Allergy, Unknown, 06/26/20) thioridazine (Verified Allergy, Unknown, 06/26/20) thiothixene (Verified Allergy, Unknown, 06/26/20) nicotine (Verified Adverse Reaction, Unknown, 08/01/20) Pt chews on transdermal patches, please do not give. HEATHER PRAJAPATI DO Sep 04, 2020 11:12
[2020-09-04 17:53] VITALS: BP 114/60
[2020-09-05] MEDS: NICOTINE POLACRILEX 2 MG GUM PO PRN ×4 (05:16→21:38)
[2020-09-05 06:09] VITALS: BP 111/56
[2020-09-05] MEDS: haloperidoL 5 MG TAB PO PRN ×2 (06:23→16:45)
[2020-09-05] MEDS: ASCORBIC ACID 250 MG TAB PO SCH (08:06)
[2020-09-05] MEDS: PYRIDOXINE 50 MG TAB PO SCH (08:06)
[2020-09-05] MEDS: CYANOCOBALAMIN 500 MCG TAB PO SCH (08:06)
[2020-09-05] MEDS: GABAPENTIN 300 MG CAP PO SCH ×3 (08:08→21:34)
[2020-09-05] MEDS: BENZTROPINE 0.5 MG TAB PO SCH ×2 (08:08→21:34)
[2020-09-05] MEDS: MAALOX 30 ML SUSP *UDC PO PRN (22:58)
[2020-09-06] MEDS: NICOTINE POLACRILEX 2 MG GUM PO PRN ×4 (04:21→19:00)
[2020-09-06] MEDS: haloperidoL 5 MG TAB PO PRN ×3 (04:41→17:50)
[2020-09-06 06:30] VITALS: BP 146/67
[2020-09-06] MEDS: GABAPENTIN 300 MG CAP PO SCH ×3 (08:56→20:29)
[2020-09-06] MEDS: BENZTROPINE 0.5 MG TAB PO SCH ×2 (08:56→20:29)
[2020-09-06] MEDS: ASCORBIC ACID 250 MG TAB PO SCH (09:00)
[2020-09-06] MEDS: PYRIDOXINE 50 MG TAB PO SCH (09:00)
[2020-09-06] MEDS: CYANOCOBALAMIN 500 MCG TAB PO SCH (09:00)
--- NOTE | 2020-09-06 11:12 | MHIPN ---
DATE: 09/05/2020 NOTE: The patient refused to see me and so I was not really able to do any evaluation. MTDD
[2020-09-06 18:07] VITALS: BP 115/67
[2020-09-07] MEDS: NICOTINE POLACRILEX 2 MG GUM PO PRN ×4 (04:12→18:04)
[2020-09-07] MEDS: haloperidoL 5 MG TAB PO PRN (04:31)
[2020-09-07 06:28] VITALS: BP 140/85
[2020-09-07] MEDS: BENZTROPINE 0.5 MG TAB PO SCH ×2 (08:06→21:11)
[2020-09-07] MEDS: GABAPENTIN 300 MG CAP PO SCH ×3 (08:06→21:11)
[2020-09-07] MEDS: ASCORBIC ACID 250 MG TAB PO SCH (09:00)
[2020-09-07] MEDS: PYRIDOXINE 50 MG TAB PO SCH (09:00)
[2020-09-07] MEDS: CYANOCOBALAMIN 500 MCG TAB PO SCH (09:00)
[2020-09-07] MEDS: MAALOX 30 ML SUSP *UDC PO PRN ×2 (09:50→21:11)
--- NOTE | 2020-09-07 10:30 | MHIPNPDOC ---
[facility] Progress Note Progress Note DATE OF SERVICE: 09/07/20 Subjective HPI: Albino presents today for schizophrenia. The patient initially came up to the window this morning saying that he did not want to meet with this provider. The patient has been notably more isolative, refusing to meet with people. When attempting to meet with him in his room, he just said fine and was quite dismissive. It was quite clear that he did not want to meet appearing somewhat paranoid. His sleepiness is unusual which could be related to perhaps a depressive phase of schizoaffective disorder versus poor functioning Haldol. I will attempt to avoid altering the medication too quickly, as he did take roughly 2 to 3 weeks to resolve once we started him on Haldol. Objective Mood: Paranoid. Thought Form: Distorted and nonlinear. Judgement: Poor. Insight: Poor. Assessment F20.9 Schizophrenia, unspecified Plan Continue Haldol. Will need to try to either increase medication slightly, or to space them out more effectively. May be able to revert the need for [facility] as the CR is available where he could go to instead of the apartment. Vital Signs Vital Signs Date Time Temp Pulse Resp B/P (MAP) Pulse Ox O2 Delivery O2 Flow Rate FiO2 09/07/20 06:28 97.4 87 18 140/85 (103) Room Air 09/03/20 06:12 94 Current Medications Current Medications Medications (Trade) Dose Ordered Sig/Jovany Route PRN Reason Start Time Stop Time Status Last Admin Dose Admin Acetaminophen (Tylenol Tab) 650 mg Q6HP PRN PO HEADACHE or DISCOMFORT 08/21/20 18:00 Al Hydrox/Mg Hydrox/Simethicone (Mylanta) 30 ml Q4HP PRN PO HEARTBURN/INDIGESTION 08/21/20 18:00 09/07/20 09:50 Ascorbic Acid (Vitamin C) 250 mg DAILY PO 08/22/20 09:00 08/31/20 08:06 Benztropine Mesylate (Cogentin) 0.5 mg BID PO 08/21/20 21:00 09/07/20 08:06 Cyanocobalamin (Vitamin B12) 1,000 mcg DAILY PO 08/22/20 09:00 08/31/20 08:06 Gabapentin (Neurontin) 300 mg TID PO 09/02/20 16:00 09/07/20 08:06 Haloperidol (Haldol) 5 mg Q4HP PRN PO AGITATION 08/23/20 15:30 09/07/20 04:31 Haloperidol (Haldol) 10 mg BID PO 08/21/20 21:00 09/07/20 08:06 Home Med (Med Rec Complete!) ASDIRECTED XX 08/21/20 17:00 08/21/20 16:56 DC Magnesium Hydroxide (Milk Of Magnesia) 30 ml DAILYPRN PRN PO CONSTIPATION 08/21/20 18:00 Nicotine (Nicorette) 2 mg Q4HP PRN PO NICOTINE WITHDRAWAL 08/22/20 08:00 09/07/20 09:01 Olanzapine (ZyPREXA ZYDIS) 5 mg Q6HP PRN PO AGITATION 08/21/20 18:00 Cancel Pyridoxine HCl (Vitamin B6) 50 mg DAILY PO 08/22/20 09:00 08/31/20 08:06 Trazodone HCl (Desyrel) 50 mg QHSP PRN PO INSOMNIA 08/21/20 18:00 Allergies Coded Allergies: Phenothiazines (Verified Allergy, Unknown, 06/26/20) fluphenazine (Verified Allergy, Unknown, 06/26/20) lithium (Verified Allergy, Unknown, 06/26/20) loxapine (Verified Allergy, Unknown, 06/26/20) meperidine (Verified Allergy, Unknown, 06/26/20) thioridazine (Verified Allergy, Unknown, 06/26/20) thiothixene (Verified Allergy, Unknown, 06/26/20) nicotine (Verified Adverse Reaction, Unknown, 08/01/20) Pt chews on transdermal patches, please do not give. HEATHER PRAJAPATI DO Sep 07, 2020 10:30
[2020-09-07 16:27] VITALS: BP 128/78
[2020-09-08] MEDS: NICOTINE POLACRILEX 2 MG GUM PO PRN ×6 (00:08→23:54)
[2020-09-08] MEDS: haloperidoL 5 MG TAB PO PRN ×3 (04:19→23:54)
[2020-09-08 06:31] VITALS: BP 115/62
[2020-09-08] MEDS: BENZTROPINE 0.5 MG TAB PO SCH ×2 (08:03→19:59)
[2020-09-08] MEDS: GABAPENTIN 300 MG CAP PO SCH ×3 (08:03→19:59)
[2020-09-08] MEDS: PYRIDOXINE 50 MG TAB PO SCH (08:04)
[2020-09-08] MEDS: CYANOCOBALAMIN 500 MCG TAB PO SCH (08:04)
[2020-09-08] MEDS: ASCORBIC ACID 250 MG TAB PO SCH (08:04)
--- NOTE | 2020-09-08 09:45 | MHIPNPDOC ---
[facility] Progress Note Progress Note DATE OF SERVICE: 09/08/20 Subjective Copy HPI: Albino was met with today in his room. He reports that he still has some worries about people wanting to hurt him. Hes concerned about going home as he feels people might be out to harm him, so hes still somewhat paranoid, but more cooperative. He has been taking care of himself better and improving in terms of washing his clothes, although paranoid that people take things from him. Objective Copy Appearance: Fair eye contact. Fair hygiene. Affect: Flat. Cognition: Grossl intact. Associations appear to be mildly loosened. Thought Form: Linear at times, but devolves into paranoid ideation. Thought Content: No thoughts of self harm. No evidence of delusions. No auditory or visual hallucinations. He reports some paranoia. No evidence of suicidal ideation. No evidence of aggressive or homicidal ideation. Judgement: Poor to fair. Insight: Poor to fair. Assessment Copy F25.0 Schizoaffective disorder, bipolar type Plan Copy Continue Haldol 10 mg BID. Well attempt to see whether his improvement will continue and whether he will be eligible to go to the [facility] or will need [place]. At this time, its hard to determine as he just taken extraordinarily long period of time to resolve and still ambivalent about Haldol Decano[place], but well continue to en courage. Vital Signs Vital Signs Date Time Temp Pulse Resp B/P (MAP) Pulse Ox O2 Delivery O2 Flow Rate FiO2 09/08/20 06:31 97.7 112 18 115/62 (79) Room Air 09/03/20 06:12 94 Current Medications Current Medications Medications (Trade) Dose Ordered Sig/Jovany Route PRN Reason Start Time Stop Time Status Last Admin Dose Admin Acetaminophen (Tylenol Tab) 650 mg Q6HP PRN PO HEADACHE or DISCOMFORT 08/21/20 18:00 Al Hydrox/Mg Hydrox/Simethicone (Mylanta) 30 ml Q4HP PRN PO HEARTBURN/INDIGESTION 08/21/20 18:00 09/07/20 21:11 Ascorbic Acid (Vitamin C) 250 mg DAILY PO 08/22/20 09:00 08/31/20 08:06 Benztropine Mesylate (Cogentin) 0.5 mg BID PO 08/21/20 21:00 09/08/20 08:03 Cyanocobalamin (Vitamin B12) 1,000 mcg DAILY PO 08/22/20 09:00 08/31/20 08:06 Gabapentin (Neurontin) 300 mg TID PO 09/02/20 16:00 09/08/20 08:03 Haloperidol (Haldol) 5 mg Q4HP PRN PO AGITATION 08/23/20 15:30 09/08/20 04:19 Haloperidol (Haldol) 10 mg BID PO 08/21/20 21:00 09/08/20 08:03 Home Med (Med Rec Complete!) ASDIRECTED XX 08/21/20 17:00 08/21/20 16:56 DC Magnesium Hydroxide (Milk Of Magnesia) 30 ml DAILYPRN PRN PO CONSTIPATION 08/21/20 18:00 Nicotine (Nicorette) 2 mg Q4HP PRN PO NICOTINE WITHDRAWAL 08/22/20 08:00 09/08/20 08:52 Olanzapine (ZyPREXA ZYDIS) 5 mg Q6HP PRN PO AGITATION 08/21/20 18:00 Cancel Pyridoxine HCl (Vitamin B6) 50 mg DAILY PO 08/22/20 09:00 08/31/20 08:06 Trazodone HCl (Desyrel) 50 mg QHSP PRN PO INSOMNIA 08/21/20 18:00 Allergies Coded Allergies: Phenothiazines (Verified Allergy, Unknown, 06/26/20) fluphenazine (Verified Allergy, Unknown, 06/26/20) lithium (Verified Allergy, Unknown, 06/26/20) loxapine (Verified Allergy, Unknown, 06/26/20) meperidine (Verified Allergy, Unknown, 06/26/20) thioridazine (Verified Allergy, Unknown, 06/26/20) thiothixene (Verified Allergy, Unknown, 06/26/20) nicotine (Verified Adverse Reaction, Unknown, 08/01/20) Pt chews on transdermal patches, please do not give. HEATHER PRAJAPATI DO Sep 08, 2020 09:45
[2020-09-09] MEDS: haloperidoL 5 MG TAB PO PRN ×4 (05:34→22:18)
[2020-09-09] MEDS: NICOTINE POLACRILEX 2 MG GUM PO PRN ×4 (05:36→19:59)
[2020-09-09 06:28] VITALS: BP 116/72
[2020-09-09] MEDS: CYANOCOBALAMIN 500 MCG TAB PO SCH (08:00)
[2020-09-09] MEDS: BENZTROPINE 0.5 MG TAB PO SCH ×2 (08:00→20:00)
[2020-09-09] MEDS: ASCORBIC ACID 250 MG TAB PO SCH (08:00)
[2020-09-09] MEDS: PYRIDOXINE 50 MG TAB PO SCH (08:00)
[2020-09-09] MEDS: GABAPENTIN 300 MG CAP PO SCH ×3 (08:00→20:00)
[2020-09-09 16:00] VITALS: BP 139/70
[2020-09-10] MEDS: NICOTINE POLACRILEX 2 MG GUM PO PRN ×5 (04:18→20:01)
[2020-09-10] MEDS: haloperidoL 5 MG TAB PO PRN ×3 (05:15→15:56)
[2020-09-10 06:47] VITALS: BP 120/76
[2020-09-10] MEDS: BENZTROPINE 0.5 MG TAB PO SCH ×2 (08:03→20:01)
[2020-09-10] MEDS: CYANOCOBALAMIN 500 MCG TAB PO SCH (08:04)
[2020-09-10] MEDS: PYRIDOXINE 50 MG TAB PO SCH (08:04)
[2020-09-10] MEDS: GABAPENTIN 300 MG CAP PO SCH ×3 (08:04→20:01)
[2020-09-10] MEDS: ASCORBIC ACID 250 MG TAB PO SCH (08:05)
[2020-09-10] MEDS: MAALOX 30 ML SUSP *UDC PO PRN (16:53)
[2020-09-10 18:50] VITALS: BP 115/72
[2020-09-11] MEDS: NICOTINE POLACRILEX 2 MG GUM PO PRN ×5 (01:16→19:35)
[2020-09-11] MEDS: haloperidoL 5 MG TAB PO PRN ×3 (01:31→13:16)
[2020-09-11 06:14] VITALS: BP 132/80
[2020-09-11] MEDS: CYANOCOBALAMIN 500 MCG TAB PO SCH (07:59)
[2020-09-11] MEDS: GABAPENTIN 300 MG CAP PO SCH ×3 (07:59→20:27)
[2020-09-11] MEDS: PYRIDOXINE 50 MG TAB PO SCH (07:59)
[2020-09-11] MEDS: BENZTROPINE 0.5 MG TAB PO SCH ×2 (07:59→20:27)
[2020-09-11] MEDS: ASCORBIC ACID 250 MG TAB PO SCH (08:00)
--- NOTE | 2020-09-11 09:42 | MHIPNPDOC ---
[facility] Progress Note Progress Note DATE OF SERVICE: 09/11/20 HISTORY: The patient is met with today, he appears more depressed and desponded today. He reports that he is been contemplating his life and having significant mental illness and how it is imperative from achieving his goals. He reported having some brief passive SI the previous evening, but had had significant difficulties with his feelings. He reports that otherwise he is open to going to wear for he needs to go, but reports that he is amenable to going to [facility] of his depression doesn't resolve.. VITAL SIGNS: See below. NEW TEST RESULTS: None. CURRENT MEDICATIONS: See below. MENTAL STATUS EXAMINATION: General: [Well dressed with good hygiene] Speech: [Spontaneous and fluid] Thought processes: [Linear and logical] Thought content: Some hopelessness Abstract reasoning, and computation: Improving Description of associations: Improving Description of abnormal or psychotic thoughts: Denies SI at this time, reports some hopelessness Judgment: [Fair] Insight: [Fair] Orientation: [Alert and orientated 3] Recent and remote memory: [Intact] Attention span and concentration: [Intact] Fund of knowledge: [Adequate] Mood: "Okay" Affect: Dysthymic with a constricted range DIAGNOSES: 1. Schizoaffective disorder bipolar type, most recent episode depressed 2. Tobacco use disorder. 3. . ASSESSMENT: Patient appears to be entering a depressed phase of his illness, which is not uncommon with a combined mood and psychotic disorder, will likely need some antidepressant to stabilize his mood prior to any potential triaged to the CR, one a low threshold for sending to [facility] or even putting on one-to-one as his particular demographic ie psychotic individuals with suicidal thoughts as well as the highest risk for post discharge suicide. MANAGEMENT PLAN: We'll start sertraline 25 mg daily, continue Haldol 10 g twice a day as well as Cogentin for EPS TIME SPENT: 15 minutes. Vital Signs Vital Signs Date Time Temp Pulse Resp B/P (MAP) Pulse Ox O2 Delivery O2 Flow Rate FiO2 09/11/20 06:14 97.8 83 18 132/80 (97) 96 Room Air Current Medications Current Medications Medications (Trade) Dose Ordered Sig/Jovany Route PRN Reason Start Time Stop Time Status Last Admin Dose Admin Acetaminophen (Tylenol Tab) 650 mg Q6HP PRN PO HEADACHE or DISCOMFORT 08/21/20 18:00 Al Hydrox/Mg Hydrox/Simethicone (Mylanta) 30 ml Q4HP PRN PO HEARTBURN/INDIGESTION 08/21/20 18:00 09/10/20 16:53 Ascorbic Acid (Vitamin C) 250 mg DAILY PO 08/22/20 09:00 08/31/20 08:06 Benztropine Mesylate (Cogentin) 0.5 mg BID PO 08/21/20 21:00 09/11/20 07:59 Cyanocobalamin (Vitamin B12) 1,000 mcg DAILY PO 08/22/20 09:00 08/31/20 08:06 Gabapentin (Neurontin) 300 mg TID PO 09/02/20 16:00 09/11/20 07:59 Haloperidol (Haldol) 5 mg Q4HP PRN PO AGITATION 08/23/20 15:30 09/11/20 06:41 Haloperidol (Haldol) 10 mg BID PO 08/21/20 21:00 09/11/20 07:59 Home Med (Med Rec Complete!) ASDIRECTED XX 08/21/20 17:00 08/21/20 16:56 DC Magnesium Hydroxide (Milk Of Magnesia) 30 ml DAILYPRN PRN PO CONSTIPATION 08/21/20 18:00 Nicotine (Nicorette) 2 mg Q4HP PRN PO NICOTINE WITHDRAWAL 08/22/20 08:00 09/11/20 05:12 Olanzapine (ZyPREXA ZYDIS) 5 mg Q6HP PRN PO AGITATION 08/21/20 18:00 Cancel Pyridoxine HCl (Vitamin B6) 50 mg DAILY PO 08/22/20 09:00 08/31/20 08:06 Trazodone HCl (Desyrel) 50 mg QHSP PRN PO INSOMNIA 08/21/20 18:00 Allergies Coded Allergies: Phenothiazines (Verified Allergy, Unknown, 06/26/20) fluphenazine (Verified Allergy, Unknown, 06/26/20) lithium (Verified Allergy, Unknown, 06/26/20) loxapine (Verified Allergy, Unknown, 06/26/20) meperidine (Verified Allergy, Unknown, 06/26/20) thioridazine (Verified Allergy, Unknown, 06/26/20) thiothixene (Verified Allergy, Unknown, 9/7/20) nicotine (Verified Adverse Reaction, Unknown, 08/01/20) Pt chews on transdermal patches, please do not give. HEATHER PRAJAPATI DO Sep 11, 2020 09:41
[2020-09-11] MEDS ORDERED: SERTRALINE HCL 25 MG TABLET PO ONE (12:15)
[2020-09-11 16:47] VITALS: BP 111/72
[2020-09-11] MEDS: MOM 30ML SUSPENSION UDC PO PRN (17:17)
[2020-09-12] MEDS: NICOTINE POLACRILEX 2 MG GUM PO PRN ×5 (03:54→20:56)
[2020-09-12] MEDS: haloperidoL 5 MG TAB PO PRN ×2 (04:27→13:11)
[2020-09-12 06:04] VITALS: BP 145/70
[2020-09-12] MEDS: ASCORBIC ACID 250 MG TAB PO SCH (07:50)
[2020-09-12] MEDS: PYRIDOXINE 50 MG TAB PO SCH (07:50)
[2020-09-12] MEDS: CYANOCOBALAMIN 500 MCG TAB PO SCH (07:50)
[2020-09-12] MEDS: GABAPENTIN 300 MG CAP PO SCH ×3 (07:52→20:04)
[2020-09-12] MEDS: SERTRALINE HCL 25 MG TABLET PO SCH (07:52)
[2020-09-12] MEDS: BENZTROPINE 0.5 MG TAB PO SCH ×2 (07:52→20:04)
--- NOTE | 2020-09-12 09:54 | MHIPNPDOC ---
[facility] Progress Note Progress Note DATE OF SERVICE: 09/12/20 HISTORY: the patient is met with today, he reports that he still feels depressed and anxious about his situation. 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 He reports feeling down, depressed and anxious. Reports fleeting SI from time to time, but reemphasizes that this is "how things happen for me." He still somewhat bizarre at times but appears to be much more amenable to meeting. VITAL SIGNS: See below. NEW TEST RESULTS: None. CURRENT MEDICATIONS: See below. MENTAL STATUS EXAMINATION: General: [Well dressed with good hygiene] Speech: [Spontaneous and fluid] Thought processes: [Linear and logical] Thought content: Some hopelessness Abstract reasoning, and computation: Improving Description of associations: Improving Description of abnormal or psychotic thoughts: Denies SI at this time, reports some hopelessness Judgment: [Fair] Insight: [Fair] Orientation: [Alert and orientated 3] Recent and remote memory: [Intact] Attention span and concentration: [Intact] Fund of knowledge: [Adequate] Mood: "Okay" Affect: Dysthymic with a constricted range DIAGNOSES: 1. Schizoaffective disorder bipolar type, most recent episode depressed 2. Tobacco use disorder. 3. . ASSESSMENT: patient appears to be still in a depressed episode, will continue wi th sertraline patient is not amenable to quick titration will slowly increase and monitor MANAGEMENT PLAN: continue sertraline 25 mg daily, continue Haldol 10 g twice a day as well as Cogentin for EPS TIME SPENT: 15 minutes. Vital Signs Vital Signs Date Time Temp Pulse Resp B/P (MAP) Pulse Ox O2 Delivery O2 Flow Rate FiO2 09/12/20 06:04 98.6 109 16 145/70 (95) Room Air 09/11/20 06:14 96 Current Medications Current Medications Medications (Trade) Dose Ordered Sig/Jovany Route PRN Reason Start Time Stop Time Status Last Admin Dose Admin Acetaminophen (Tylenol Tab) 650 mg Q6HP PRN PO HEADACHE or DISCOMFORT 08/21/20 18:00 Al Hydrox/Mg Hydrox/Simethicone (Mylanta) 30 ml Q4HP PRN PO HEARTBURN/INDIGESTION 08/21/20 18:00 09/10/20 16:53 Ascorbic Acid (Vitamin C) 250 mg DAILY PO 08/22/20 09:00 08/31/20 08:06 Benztropine Mesylate (Cogentin) 0.5 mg BID PO 08/21/20 21:00 09/12/20 07:52 Cyanocobalamin (Vitamin B12) 1,000 mcg DAILY PO 08/22/20 09:00 08/31/20 08:06 Gabapentin (Neurontin) 300 mg TID PO 09/02/20 16:00 09/12/20 07:52 Haloperidol (Haldol) 5 mg Q4HP PRN PO AGITATION 08/23/20 15:30 09/12/20 04:27 Haloperidol (Haldol) 10 mg BID PO 08/21/20 21:00 09/12/20 07:52 Home Med (Med Rec Complete!) ASDIRECTED XX 08/21/20 17:00 08/21/20 16:56 DC Magnesium Hydroxide (Milk Of Magnesia) 30 ml DAILYPRN PRN PO CONSTIPATION 08/21/20 18:00 09/11/20 17:17 Nicotine (Nicorette) 2 mg Q4HP PRN PO NICOTINE WITHDRAWAL 08/22/20 08:00 09/12/20 07:52 Olanzapine (ZyPREXA ZYDIS) 5 mg Q6HP PRN PO AGITATION 08/21/20 18:00 Cancel Pyridoxine HCl (Vitamin B6) 50 mg DAILY PO 08/22/20 09:00 08/31/20 08:06 Sertraline HCl (Zoloft) 25 mg DAILY PO 09/12/20 09:00 09/12/20 07:52 Trazodone HCl (Desyrel) 50 mg QHSP PRN PO INSOMNIA 08/21/20 18:00 Allergies Coded Allergies: Phenothiazines (Verified Allergy, Unknown, 06/26/20) fluphenazine (Verified Allergy, Unknown, 06/26/20) lithium (Verified Allergy, Unknown, 06/26/20) loxapine (Verified Allergy, Unknown, 06/26/20) meperidine (Verified Allergy, Unknown, 06/26/20) thioridazine (Verified Allergy, Unknown, 06/26/20) thiothixene (Verified Allergy, Unknown, 06/26/20) nicotine (Verified Adverse Reaction, Unknown, 08/01/20) Pt chews on transdermal patches, please do not give. LULEJIAN,HEATHER DO Sep 12, 2020 09:54
--- NOTE | 2020-09-12 09:56 | MHIPN ---
DATE: 09/06/2020 The patient today tells me that he is feeling better. He says that he is not having any hallucinations. He is still having some mild paranoid thoughts at times. MENTAL STATUS EXAM: The patient is alert, oriented times 3. Eye contact fair. psychomotor activity is normal. There is no formal thought disorder noted. Mood is okay. Affect flat. He still appears to have some paranoid thoughts. Concentration is fair. Memory intact. Insight and judgment is fair. DIAGNOSIS: Schizoaffective disorder. TREATMENT PLAN: At this point patient will continue to be monitored for his paranoid thoughts and his medications will be titrated as indicated. MTDD
[2020-09-12 16:17] VITALS: BP 114/60
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
[2020-09-12] MEDS: BETAMETHASONE DIP 0.05% OINT 15 GM TOP SCH (18:36)
[2020-09-13] MEDS: haloperidoL 5 MG TAB PO PRN ×2 (05:22→16:34)
[2020-09-13] MEDS: NICOTINE POLACRILEX 2 MG GUM PO PRN ×4 (05:22→20:04)
[2020-09-13 06:32] VITALS: BP 130/74
[2020-09-13] MEDS: BENZTROPINE 0.5 MG TAB PO SCH ×2 (08:04→20:04)
[2020-09-13] MEDS: PYRIDOXINE 50 MG TAB PO SCH (08:04)
[2020-09-13] MEDS: GABAPENTIN 300 MG CAP PO SCH ×3 (08:04→20:04)
[2020-09-13] MEDS: BETAMETHASONE DIP 0.05% OINT 15 GM TOP SCH (08:04)
[2020-09-13] MEDS: CYANOCOBALAMIN 500 MCG TAB PO SCH (08:04)
[2020-09-13] MEDS: ASCORBIC ACID 250 MG TAB PO SCH (08:05)
[2020-09-13] MEDS: SERTRALINE HCL 25 MG TABLET PO SCH (08:05)
--- NOTE | 2020-09-13 10:46 | MHIPNPDOC ---
[facility] Progress Note Progress Note DATE OF SERVICE: 09/13/20 HISTORY: the patient is met with today, he is notably more irritable, he hasn't been taking the Zoloft and declines taking it, reporting he doesn't want any of the "side effects, is generally been more rodgers and isolative but denies feeling depressed, VITAL SIGNS: See below. NEW TEST RESULTS: None. CURRENT MEDICATIONS: See below. MENTAL STATUS EXAMINATION: General: [Well dressed with good hygiene] Speech: [Spontaneous and fluid] Thought processes: [Linear and logical] Thought content: hopelessness Abstract reasoning, and computation: decompensating Description of associations: decompensating Description of abnormal or psychotic thoughts: Denies SI at this time, reports some hopelessness Judgment: decompensating Insight: decompensating Orientation: [Alert and orientated 3] Recent and remote memory: [Intact] Attention span and concentration: [Intact] Fund of knowledge: [Adequate] Mood: "Okay" Affect: Dysthymic with a constricted range DIAGNOSES: 1. Schizoaffective disorder bipolar type, most recent episode depressed 2. Tobacco use disorder. ASSESSMENT: patient appears to be relapsing into depressive episode, he is not interested in taking sertraline, will continue to attempt to get him to try and antidepressant or a mood stabilizer MANAGEMENT PLAN: continue to offer sertraline 25 mg daily, continue Haldol 10 g twice a day as well as Cogentin for EPS TIME SPENT: 15 minutes. Vital Signs Vital Signs Date Time Temp Pulse Resp B/P (MAP) Pulse Ox O2 Delivery O2 Flow Rate FiO2 09/13/20 06:32 97.6 80 16 130/74 (92) 96 Room Air Current Medications Current Medications Medications (Trade) Dose Ordered Sig/Jovany Route PRN Reason Start Time Stop Time Status Last Admin Dose Admin Acetaminophen (Tylenol Tab) 650 mg Q6HP PRN PO HEADACHE or DISCOMFORT 08/21/20 18:00 Al Hydrox/Mg Hydrox/Simethicone (Mylanta) 30 ml Q4HP PRN PO HEARTBURN/INDIGESTION 08/21/20 18:00 09/10/20 16:53 Ascorbic Acid (Vitamin C) 250 mg DAILY PO 08/22/20 09:00 08/31/20 08:06 Benztropine Mesylate (Cogentin) 0.5 mg BID PO 08/21/20 21:00 09/13/20 08:04 Betamethasone Dipropionate (Diprosone) apply daily to effec... DAILY TOP 09/12/20 09:00 09/13/20 08:04 Cyanocobalamin (Vitamin B12) 1,000 mcg DAILY PO 08/22/20 09:00 08/31/20 08:06 Gabapentin (Neurontin) 300 mg TID PO 09/02/20 16:00 09/13/20 08:04 Haloperidol (Haldol) 5 mg Q4HP PRN PO AGITATION 08/23/20 15:30 09/13/20 05:22 Haloperidol (Haldol) 10 mg BID PO 08/21/20 21:00 09/13/20 08:04 Home Med (Med Rec Complete!) ASDIRECTED XX 08/21/20 17:00 08/21/20 16:56 DC Magnesium Hydroxide (Milk Of Magnesia) 30 ml DAILYPRN PRN PO CONSTIPATION 08/21/20 18:00 09/11/20 17:17 Nicotine (Nicorette) 2 mg Q4HP PRN PO NICOTINE WITHDRAWAL 08/22/20 08:00 09/13/20 09:23 Olanzapine (ZyPREXA ZYDIS) 5 mg Q6HP PRN PO AGITATION 08/21/20 18:00 Cancel Pyridoxine HCl (Vitamin B6) 50 mg DAILY PO 08/22/20 09:00 08/31/20 08:06 Sertraline HCl (Zoloft) 25 mg DAILY PO 09/12/20 09:00 09/12/20 07:52 Trazodone HCl (Desyrel) 50 mg QHSP PRN PO INSOMNIA 08/21/20 18:00 Allergies Coded Allergies: Phenothiazines (Verified Allergy, Unknown, 06/26/20) fluphenazine (Verified Allergy, Unknown, 06/26/20) lithium (Verified Allergy, Unknown, 06/26/20) loxapine (Verified Allergy, Unknown, 06/26/20) meperidine (Verified Allergy, Unknown, 06/26/20) thioridazine (Verified Allergy, Unknown, 06/26/20) thiothixene (Verified Allergy, Unknown, 06/26/20) nicotine (Verified Adverse Reaction, Unknown, 08/01/20) Pt chews on transdermal patches, please do not give. HEATHER PRAJAPATI DO Sep 13, 2020 10:46
[2020-09-13 16:00] VITALS: BP 122/63
[2020-09-13] MEDS: MAALOX 30 ML SUSP *UDC PO PRN (22:40)
[2020-09-13] MEDS ORDERED: BENZTROPINE 2 MG TAB PO ONE (23:00)
[2020-09-14] MEDS: NICOTINE POLACRILEX 2 MG GUM PO PRN ×4 (05:08→20:55)
[2020-09-14] MEDS: haloperidoL 5 MG TAB PO PRN ×3 (05:59→17:54)
[2020-09-14 06:26] VITALS: BP 120/65
[2020-09-14] MEDS: BENZTROPINE 0.5 MG TAB PO SCH ×2 (08:03→20:55)
[2020-09-14] MEDS: CYANOCOBALAMIN 500 MCG TAB PO SCH (08:03)
[2020-09-14] MEDS: ASCORBIC ACID 250 MG TAB PO SCH (08:03)
[2020-09-14] MEDS: PYRIDOXINE 50 MG TAB PO SCH (08:04)
[2020-09-14] MEDS: BETAMETHASONE DIP 0.05% OINT 15 GM TOP SCH (08:04)
[2020-09-14] MEDS: GABAPENTIN 300 MG CAP PO SCH ×3 (08:04→20:55)
[2020-09-14] MEDS: SERTRALINE HCL 25 MG TABLET PO SCH (08:04)
[2020-09-14 17:40] VITALS: BP 113/76
[2020-09-15] MEDS: NICOTINE POLACRILEX 2 MG GUM PO PRN ×4 (05:24→19:55)
[2020-09-15] MEDS: haloperidoL 5 MG TAB PO PRN ×4 (05:57→21:22)
[2020-09-15 06:48] VITALS: BP 98/56
[2020-09-15] MEDS: BENZTROPINE 0.5 MG TAB PO SCH ×2 (08:08→19:55)
[2020-09-15] MEDS: GABAPENTIN 300 MG CAP PO SCH ×3 (08:08→19:55)
[2020-09-15] MEDS: BETAMETHASONE DIP 0.05% OINT 15 GM TOP SCH (08:09)
[2020-09-15] MEDS: ASCORBIC ACID 250 MG TAB PO SCH (09:00)
[2020-09-15] MEDS: CYANOCOBALAMIN 500 MCG TAB PO SCH (09:00)
[2020-09-15] MEDS: SERTRALINE HCL 25 MG TABLET PO SCH (09:00)
[2020-09-15] MEDS: PYRIDOXINE 50 MG TAB PO SCH (09:00)
--- NOTE | 2020-09-15 09:52 | MHIPNPDOC ---
[facility] Progress Note Progress Note DATE OF SERVICE: 09/15/20 HISTORY: The patient is met with today, reasonably more irritable at times and generally appears to be much more disinterested in treatment, he is generally enigmatic but notably is much more irritable. He reports he does want take the sertraline as he does not want the "side effects", but was gained interviewers he appears quite evasive and guarded. VITAL SIGNS: See below. NEW TEST RESULTS: None. CURRENT MEDICATIONS: See below. MENTAL STATUS EXAMINATION: General: [Well dressed with good hygiene] Speech: [Spontaneous and fluid] Thought processes: Circumstantial Thought content: hopelessness Abstract reasoning, and computation: decompensating Description of associations: decompensating Description of abnormal or psychotic thoughts: Denies SI at this time, reports some hopelessness Judgment: decompensating Insight: decompensating Orientation: [Alert and orientated 3] Recent and remote memory: [Intact] Attention span and concentration: [Intact] Fund of knowledge: [Adequate] Mood: "Okay" Affect: Dysthymic with a constricted range DIAGNOSES: 1. Schizoaffective disorder bipolar type, most recent episode depressed 2. Tobacco use disorder. ASSESSMENT: Patient appears that he will need to be either continued on a higher dose of Haldol or switch to another agent, he is very ambivalent about trying another one, he may need long-term care as his difficulty level will increase MANAGEMENT PLAN: We'll discontinue sertraline as he is not taking this currently, recommend to continue Haldol 10 mg daily possible increased to 15 although he generally uses close the maximum amount TIME SPENT: 15 minutes. Vital Signs Vital Signs Date Time Temp Pulse Resp B/P (MAP) Pulse Ox O2 Delivery O2 Flow Rate FiO2 09/15/20 06:48 96.7 89 18 98/56 (70) 97 Room Air Current Medications Current Medications Medications (Trade) Dose Ordered Sig/Jovany Route PRN Reason Start Time Stop Time Status Last Admin Dose Admin Acetaminophen (Tylenol Tab) 650 mg Q6HP PRN PO HEADACHE or DISCOMFORT 08/21/20 18:00 Al Hydrox/Mg Hydrox/Simethicone (Mylanta) 30 ml Q4HP PRN PO HEARTBURN/INDIGESTION 08/21/20 18:00 09/13/20 22:40 Ascorbic Acid (Vitamin C) 250 mg DAILY PO 08/22/20 09:00 09/14/20 08:03 Benztropine Mesylate (Cogentin) 0.5 mg BID PO 08/21/20 21:00 09/15/20 08:08 Betamethasone Dipropionate (Diprosone) apply daily to effec... DAILY TOP 09/12/20 09:00 09/15/20 08:09 Cyanocobalamin (Vitamin B12) 1,000 mcg DAILY PO 08/22/20 09:00 09/14/20 08:03 Gabapentin (Neurontin) 300 mg TID PO 09/02/20 16:00 09/15/20 08:08 Haloperidol (Haldol) 5 mg Q4HP PRN PO AGITATION 08/23/20 15:30 09/15/20 05:57 Haloperidol (Haldol) 10 mg BID PO 08/21/20 21:00 09/15/20 08:07 Home Med (Med Rec Complete!) ASDIRECTED XX 08/21/20 17:00 08/21/20 16:56 DC Magnesium Hydroxide (Milk Of Magnesia) 30 ml DAILYPRN PRN PO CONSTIPATION 08/21/20 18:00 09/11/20 17:17 Nicotine (Nicorette) 2 mg Q4HP PRN PO NICOTINE WITHDRAWAL 08/22/20 08:00 09/15/20 09:50 Olanzapine (ZyPREXA ZYDIS) 5 mg Q6HP PRN PO AGITATION 08/21/20 18:00 Cancel Pyridoxine HCl (Vitamin B6) 50 mg DAILY PO 08/22/20 09:00 09/14/20 08:04 Sertraline HCl (Zoloft) 25 mg DAILY PO 09/12/20 09:00 09/12/20 07:52 Trazodone HCl (Desyrel) 50 mg QHSP PRN PO INSOMNIA 08/21/20 18:00 Allergies Coded Allergies: Phenothiazines (Verified Allergy, Unknown, 06/26/20) fluphenazine (Verified Allergy, Unknown, 06/26/20) lithium (Verified Allergy, Unknown, 06/26/20) loxapine (Verified Allergy, Unknown, 06/26/20) meperidine (Verified Allergy, Unknown, 06/26/20) thioridazine (Verified Allergy, Unknown, 06/26/20) thiothixene (Verified Allergy, Unknown, 06/26/20) nicotine (Verified Adverse Reaction, Unknown, 08/01/20) Pt chews on transdermal patches, please do not give. HEATHER PRAJAPATI DO Sep 15, 2020 09:52
[2020-09-15 16:49] VITALS: BP 111/62
[2020-09-16] MEDS: NICOTINE POLACRILEX 2 MG GUM PO PRN ×5 (05:27→23:43)
[2020-09-16] MEDS: haloperidoL 5 MG TAB PO PRN ×4 (06:27→21:49)
[2020-09-16 06:43] VITALS: BP 112/59
[2020-09-16] MEDS: CYANOCOBALAMIN 500 MCG TAB PO SCH (07:55)
[2020-09-16] MEDS: PYRIDOXINE 50 MG TAB PO SCH (07:55)
[2020-09-16] MEDS: ASCORBIC ACID 250 MG TAB PO SCH (07:56)
[2020-09-16] MEDS: GABAPENTIN 300 MG CAP PO SCH ×3 (07:58→19:58)
[2020-09-16] MEDS: BENZTROPINE 0.5 MG TAB PO SCH ×2 (07:59→19:58)
[2020-09-16] MEDS: BETAMETHASONE DIP 0.05% OINT 15 GM TOP SCH (07:59)
[2020-09-16 16:11] VITALS: BP 116/78
[2020-09-16] MEDS: MAALOX 30 ML SUSP *UDC PO PRN (19:17)
[2020-09-17] MEDS: NICOTINE POLACRILEX 2 MG GUM PO PRN ×4 (06:01→19:44)
[2020-09-17] MEDS: haloperidoL 5 MG TAB PO PRN ×2 (06:23→17:15)
[2020-09-17] MEDS: GABAPENTIN 300 MG CAP PO SCH ×3 (07:54→20:35)
[2020-09-17] MEDS: BENZTROPINE 0.5 MG TAB PO SCH ×2 (07:54→21:00)
[2020-09-17] MEDS: PYRIDOXINE 50 MG TAB PO SCH (07:54)
[2020-09-17] MEDS: CYANOCOBALAMIN 500 MCG TAB PO SCH (07:54)
[2020-09-17] MEDS: ASCORBIC ACID 250 MG TAB PO SCH (07:54)
[2020-09-17] MEDS: BETAMETHASONE DIP 0.05% OINT 15 GM TOP SCH (07:54)
[2020-09-17 16:08] VITALS: BP 105/59
[2020-09-18] MEDS: NICOTINE POLACRILEX 2 MG GUM PO PRN ×5 (01:47→18:01)
[2020-09-18] MEDS: ACETAMINOPHEN TAB 650MG DOSE (2X325MG) PO PRN ×2 (02:03→16:10)
[2020-09-18] MEDS: haloperidoL 5 MG TAB PO PRN ×2 (03:04→12:04)
[2020-09-18 06:36] VITALS: BP 98/73
[2020-09-18] MEDS: GABAPENTIN 300 MG CAP PO SCH ×3 (08:00→22:16)
[2020-09-18] MEDS: ASCORBIC ACID 250 MG TAB PO SCH (08:01)
[2020-09-18] MEDS: CYANOCOBALAMIN 500 MCG TAB PO SCH (08:01)
[2020-09-18] MEDS: BETAMETHASONE DIP 0.05% OINT 15 GM TOP SCH (08:01)
[2020-09-18] MEDS: PYRIDOXINE 50 MG TAB PO SCH (08:01)
[2020-09-18] MEDS: BENZTROPINE 0.5 MG TAB PO SCH ×2 (08:01→21:00)
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
[2020-09-18 18:00] VITALS: BP 117/62
[2020-09-19] MEDS: NICOTINE POLACRILEX 2 MG GUM PO PRN ×5 (04:48→21:56)
[2020-09-19] MEDS: haloperidoL 5 MG TAB PO PRN ×3 (05:18→17:36)
[2020-09-19 06:33] VITALS: BP 118/86
[2020-09-19] MEDS: GABAPENTIN 300 MG CAP PO SCH ×3 (08:15→20:03)
[2020-09-19] MEDS: ASCORBIC ACID 250 MG TAB PO SCH (08:16)
[2020-09-19] MEDS: PYRIDOXINE 50 MG TAB PO SCH (08:16)
[2020-09-19] MEDS: CYANOCOBALAMIN 500 MCG TAB PO SCH (08:16)
[2020-09-19] MEDS: BETAMETHASONE DIP 0.05% OINT 15 GM TOP SCH (09:00)
[2020-09-19] MEDS: BENZTROPINE 0.5 MG TAB PO SCH ×2 (09:00→21:00)
--- NOTE | 2020-09-19 10:45 | MHIPNPDOC ---
[facility] Progress Note Progress Note DATE OF SERVICE: 09/19/20 HISTORY: the patient is met with today, he is still quite bizarre and paranoid, he generally has been attempting to give away his things, reporting that he will not go back to [facility] as they are "taking things from him.", He is bizarre and tangential during the discussion unable to make any recent decision and has been increasingly more irritable. VITAL SIGNS: See below. NEW TEST RESULTS: None. CURRENT MEDICATIONS: See below. MENTAL STATUS EXAMINATION: General hygiene fair Speech: [Spontaneous and fluid] Thought processes: tangential Thought content: hopelessness, paranoid Abstract reasoning, and computation: decompensating Description of associations: decompensating Description of abnormal or psychotic thoughts: Denies SI at this time, increasing paranoid ideation Judgment: decompensating Insight: decompensating Orientation: [Alert and orientated 3] Recent and remote memory: [Intact] Attention span and concentration: [Intact] Fund of knowledge: [Adequate] Mood: "Okay" Affect: flat DIAGNOSES: 1. Schizoaffective disorder bipolar type, most recent episode depressed 2. Tobacco use disorder. ASSESSMENT: patient will need augmentation regiment, although he is having difficulty of compliance, he may even need a treatment of her objection but generally will take medications once he realizes he will need to MANAGEMENT PLAN: Continue Haldol 10 mg BID Start Abilify 5 mg QHS TIME SPENT: 15 minutes. Vital Signs Vital Signs Date Time Temp Pulse Resp B/P (MAP) Pulse Ox O2 Delivery O2 Flow Rate FiO2 09/19/20 06:33 98.0 96 16 118/86 (97) 09/17/20 16:08 97 Room Air Current Medications Current Medications Medications (Trade) Dose Ordered Sig/Jovany Route PRN Reason Start Time Stop Time Status Last Admin Dose Admin Acetaminophen (Tylenol Tab) 650 mg Q6HP PRN PO HEADACHE or DISCOMFORT 08/21/20 18:00 09/18/20 16:10 Al Hydrox/Mg Hydrox/Simethicone (Mylanta) 30 ml Q4HP PRN PO HEARTBURN/INDIGESTION 08/21/20 18:00 09/16/20 19:17 Ascorbic Acid (Vitamin C) 250 mg DAILY PO 08/22/20 09:00 09/14/20 08:03 Benztropine Mesylate (Cogentin) 0.5 mg BID PO 08/21/20 21:00 09/17/20 07:54 Betamethasone Dipropionate (Diprosone) apply daily to effec... DAILY TOP 09/12/20 09:00 09/17/20 07:54 Cyanocobalamin (Vitamin B12) 1,000 mcg DAILY PO 08/22/20 09:00 09/14/20 08:03 Gabapentin (Neurontin) 300 mg TID PO 09/02/20 16:00 09/19/20 08:15 Haloperidol (Haldol) 5 mg Q4HP PRN PO AGITATION 08/23/20 15:30 09/19/20 05:18 Haloperidol (Haldol) 10 mg BID PO 08/21/20 21:00 09/15/20 10:36 DC 09/15/20 08:07 Haloperidol (Haldol) 10 mg BID PO 09/16/20 21:00 09/19/20 08:15 Home Med (Med Rec Complete!) ASDIRECTED XX 08/21/20 17:00 08/21/20 16:56 DC Magnesium Hydroxide (Milk Of Magnesia) 30 ml DAILYPRN PRN PO CONSTIPATION 08/21/20 18:00 09/11/20 17:17 Nicotine (Nicorette) 2 mg Q4HP PRN PO NICOTINE WITHDRAWAL 08/22/20 08:00 09/19/20 09:04 Olanzapine (ZyPREXA ZYDIS) 5 mg Q6HP PRN PO AGITATION 08/21/20 18:00 Cancel Pyridoxine HCl (Vitamin B6) 50 mg DAILY PO 08/22/20 09:00 09/14/20 08:04 Sertraline HCl (Zoloft) 25 mg DAILY PO 09/12/20 09:00 09/15/20 10:36 DC 09/12/20 07:52 Trazodone HCl (Desyrel) 50 mg QHSP PRN PO INSOMNIA 08/21/20 18:00 Allergies Coded Allergies: Phenothiazines (Verified Allergy, Unknown, 06/26/20) fluphenazine (Verified Allergy, Unknown, 06/26/20) lithium (Verified Allergy, Unknown, 06/26/20) loxapine (Verified Allergy, Unknown, 06/26/20) meperidine (Verified Allergy, Unknown, 06/26/20) thioridazine (Verified Allergy, Unknown, 06/26/20) thiothixene (Verified Allergy, Unknown, 06/26/20) nicotine (Verified Adverse Reaction, Unknown, 08/01/20) Pt chews on transdermal patches, please do not give. HEATHER PRAJAPATI DO Sep 19, 2020 10:45
[2020-09-19 18:00] VITALS: BP 139/55
[2020-09-20] MEDS: NICOTINE POLACRILEX 2 MG GUM PO PRN ×4 (05:16→18:51)
[2020-09-20] MEDS: haloperidoL 5 MG TAB PO PRN ×3 (05:36→15:53)
[2020-09-20 06:32] VITALS: BP 133/89
[2020-09-20] MEDS: GABAPENTIN 300 MG CAP PO SCH ×3 (08:10→20:03)
[2020-09-20] MEDS: ASCORBIC ACID 250 MG TAB PO SCH (09:00)
[2020-09-20] MEDS: CYANOCOBALAMIN 500 MCG TAB PO SCH (09:00)
[2020-09-20] MEDS: BENZTROPINE 0.5 MG TAB PO SCH ×2 (09:00→20:04)
[2020-09-20] MEDS: PYRIDOXINE 50 MG TAB PO SCH (09:00)
[2020-09-20] MEDS: BETAMETHASONE DIP 0.05% OINT 15 GM TOP SCH (09:00)
--- NOTE | 2020-09-20 09:59 | MHIPNPDOC ---
[facility] Progress Note Progress Note DATE OF SERVICE: 09/20/20 HISTORY: the patient continues be fairly paranoid, he reports that he is giving way various things as "pointless", he is becoming more bizarre and unusual. An interview he says little other than too be fairly suspicious of others on the unit, he interacts much less today goes to groups less frequently and is much more irritable staff. VITAL SIGNS: See below. NEW TEST RESULTS: None. CURRENT MEDICATIONS: See below. MENTAL STATUS EXAMINATION: General hygiene fair Speech: [Spontaneous and fluid] Thought processes: tangential Thought content: hopelessness, paranoid Abstract reasoning, and computation: decompensating Description of associations: decompensating Description of abnormal or psychotic thoughts: Denies SI at this time, increasing paranoid ideation Judgment: decompensating Insight: decompensating Orientation: [Alert and orientated 3] Recent and remote memory: [Intact] Attention span and concentration: [Intact] Fund of knowledge: [Adequate] Mood: "Okay" Affect: flat DIAGNOSES: 1. Schizoaffective disorder bipolar type, most recent episode depressed 2. Tobacco use disorder. ASSESSMENT: increasing paranoid ideation will require continued medication titr ation, referral to [facility] in process for long-term care MANAGEMENT PLAN: Continue Haldol 10 mg BID Continue Abilify 5 mg QHS TIME SPENT: 15 minutes. Vital Signs Vital Signs Date Time Temp Pulse Resp B/P (MAP) Pulse Ox O2 Delivery O2 Flow Rate FiO2 09/20/20 06:32 97.8 102 16 133/89 (104) 09/17/20 16:08 97 Room Air Current Medications Current Medications Medications (Trade) Dose Ordered Sig/Jovany Route PRN Reason Start Time Stop Time Status Last Admin Dose Admin Acetaminophen (Tylenol Tab) 650 mg Q6HP PRN PO HEADACHE or DISCOMFORT 08/21/20 18:00 09/18/20 16:10 Al Hydrox/Mg Hydrox/Simethicone (Mylanta) 30 ml Q4HP PRN PO HEARTBURN/INDIGESTION 08/21/20 18:00 09/16/20 19:17 Aripiprazole (AbiLIFY) 5 mg QHS PO 09/19/20 21:00 09/19/20 20:04 Ascorbic Acid (Vitamin C) 250 mg DAILY PO 08/22/20 09:00 09/14/20 08:03 Benztropine Mesylate (Cogentin) 0.5 mg BID PO 08/21/20 21:00 09/17/20 07:54 Betamethasone Dipropionate (Diprosone) apply daily to effec... DAILY TOP 09/12/20 09:00 09/17/20 07:54 Cyanocobalamin (Vitamin B12) 1,000 mcg DAILY PO 08/22/20 09:00 09/14/20 08:03 Gabapentin (Neurontin) 300 mg TID PO 09/02/20 16:00 09/20/20 08:10 Haloperidol (Haldol) 5 mg Q4HP PRN PO AGITATION 08/23/20 15:30 09/20/20 05:36 Haloperidol (Haldol) 10 mg BID PO 08/21/20 21:00 09/15/20 10:36 DC 09/15/20 08:07 Haloperidol (Haldol) 10 mg BID PO 09/16/20 21:00 09/20/20 08:10 Home Med (Med Rec Complete!) ASDIRECTED XX 08/21/20 17:00 08/21/20 16:56 DC Magnesium Hydroxide (Milk Of Magnesia) 30 ml DAILYPRN PRN PO CONSTIPATION 08/21/20 18:00 09/11/20 17:17 Nicotine (Nicorette) 2 mg Q4HP PRN PO NICOTINE WITHDRAWAL 08/22/20 08:00 09/20/20 09:03 Olanzapine (ZyPREXA ZYDIS) 5 mg Q6HP PRN PO AGITATION 08/21/20 18:00 Cancel Pyridoxine HCl (Vitamin B6) 50 mg DAILY PO 08/22/20 09:00 09/14/20 08:04 Sertraline HCl (Zoloft) 25 mg DAILY PO 09/12/20 09:00 09/15/20 10:36 DC 09/12/20 07:52 Trazodone HCl (Desyrel) 50 mg QHSP PRN PO INSOMNIA 08/21/20 18:00 Allergies Coded Allergies: Phenothiazines (Verified Allergy, Unknown, 06/26/20) fluphenazine (Verified Allergy, Unknown, 06/26/20) lithium (Verified Allergy, Unknown, 06/26/20) loxapine (Verified Allergy, Unknown, 06/26/20) meperidine (Verified Allergy, Unknown, 06/26/20) thioridazine (Verified Allergy, Unknown, 06/26/20) thiothixene (Verified Allergy, Unknown, 06/26/20) nicotine (Verified Adverse Reaction, Unknown, 08/01/20) Pt chews on transdermal patches, please do not give. HEATHER PRAJAPATI DO Sep 20, 2020 09:59
[2020-09-20 19:52] VITALS: BP 166/80
[2020-09-20] MEDS: traZODone 50 MG TAB PO PRN (20:59)
[2020-09-21] MEDS: NICOTINE POLACRILEX 2 MG GUM PO PRN ×4 (05:22→19:57)
[2020-09-21] MEDS: haloperidoL 5 MG TAB PO PRN ×2 (06:29→11:43)
[2020-09-21 06:50] VITALS: BP 114/71
[2020-09-21] MEDS: GABAPENTIN 300 MG CAP PO SCH ×3 (07:58→19:57)
[2020-09-21] MEDS: BENZTROPINE 0.5 MG TAB PO SCH ×2 (08:00→19:57)
[2020-09-21] MEDS: CYANOCOBALAMIN 500 MCG TAB PO SCH (08:01)
[2020-09-21] MEDS: ASCORBIC ACID 250 MG TAB PO SCH (08:01)
[2020-09-21] MEDS: PYRIDOXINE 50 MG TAB PO SCH (08:01)
[2020-09-21] MEDS: BETAMETHASONE DIP 0.05% OINT 15 GM TOP SCH (08:01)
--- NOTE | 2020-09-21 10:42 | MHIPNPDOC ---
[facility] Progress Note Progress Note DATE OF SERVICE: 09/21/20 HISTORY: the patient is met with, however he is very preoccupied with the current state of current events being paranoid and feeling that people will "have a terrible year.", He remains fairly preoccupied stating that he has been taking PRN's but then subs really turns around and says that he does not need any appearance. He's apparently more disorganized, although he reports the Haldol's very helpful for his anxiety and the uses a quite frequently. He denies any side effects from his medications, and otherwise focuses entirely on his paranoid thoughts. VITAL SIGNS: See below. NEW TEST RESULTS: None. CURRENT MEDICATIONS: See below. MENTAL STATUS EXAMINATION: General hygiene fair Speech: [Spontaneous and fluid] Thought processes: tangential Thought content: hopelessness, paranoid Abstract reasoning, and computation: decompensating Description of associations: decompensating Description of abnormal or psychotic thoughts: Denies SI at this time, increasing paranoid ideation Judgment: decompensating Insight: decompensating Orientation: [Alert and orientated 3] Recent and remote memory: [Intact] Attention span and concentration: [Intact] Fund of knowledge: [Adequate] Mood: "people will lose their homes" Affect: flat DIAGNOSES: 1. Schizoaffective disorder bipolar type, most recent episode depressed 2. Tobacco use disorder. ASSESSMENT: increasing paranoid ideation will require continued medication titration, referral to [facility] in process for long-term care MANAGEMENT PLAN: Increase to Haldol 10 mg TID Cogentin to continue to prevent EPS Continue Abilify 5 mg QHS TIME SPENT: 15 minutes. Vital Signs Vital Signs Date Time Temp Pulse Resp B/P (MAP) Pulse Ox O2 Delivery O2 Flow Rate FiO2 09/21/20 06:50 97.9 88 16 114/71 (85) 96 Room Air Current Medications Current Medications Medications (Trade) Dose Ordered Sig/Jovany Route PRN Reason Start Time Stop Time Status Last Admin Dose Admin Acetaminophen (Tylenol Tab) 650 mg Q6HP PRN PO HEADACHE or DISCOMFORT 08/21/20 18:00 09/18/20 16:10 Al Hydrox/Mg Hydrox/Simethicone (Mylanta) 30 ml Q4HP PRN PO HEARTBURN/INDIGESTION 08/21/20 18:00 09/16/20 19:17 Aripiprazole (AbiLIFY) 5 mg QHS PO 09/19/20 21:00 09/20/20 20:03 Ascorbic Acid (Vitamin C) 250 mg DAILY PO 08/22/20 09:00 09/14/20 08:03 Benztropine Mesylate (Cogentin) 0.5 mg BID PO 08/21/20 21:00 09/17/20 07:54 Betamethasone Dipropionate (Diprosone) apply daily to effec... DAILY TOP 09/12/20 09:00 09/17/20 07:54 Cyanocobalamin (Vitamin B12) 1,000 mcg DAILY PO 08/22/20 09:00 09/14/20 08:03 Gabapentin (Neurontin) 300 mg TID PO 09/02/20 16:00 09/21/20 07:58 Haloperidol (Haldol) 5 mg Q4HP PRN PO AGITATION 08/23/20 15:30 09/21/20 06:29 Haloperidol (Haldol) 10 mg BID PO 08/21/20 21:00 09/15/20 10:36 DC 09/15/20 08:07 Haloperidol (Haldol) 10 mg BID PO 09/16/20 21:00 09/21/20 07:59 Home Med (Med Rec Complete!) ASDIRECTED XX 08/21/20 17:00 08/21/20 16:56 DC Magnesium Hydroxide (Milk Of Magnesia) 30 ml DAILYPRN PRN PO CONSTIPATION 08/21/20 18:00 09/11/20 17:17 Nicotine (Nicorette) 2 mg Q4HP PRN PO NICOTINE WITHDRAWAL 08/22/20 08:00 09/21/20 09:48 Olanzapine (ZyPREXA ZYDIS) 5 mg Q6HP PRN PO AGITATION 08/21/20 18:00 Cancel Pyridoxine HCl (Vitamin B6) 50 mg DAILY PO 08/22/20 09:00 09/14/20 08:04 Sertraline HCl (Zoloft) 25 mg DAILY PO 09/12/20 09:00 09/15/20 10:36 DC 09/12/20 07:52 Trazodone HCl (Desyrel) 50 mg QHSP PRN PO INSOMNIA 08/21/20 18:00 09/20/20 20:59 Allergies Coded Allergies: Phenothiazines (Verified Allergy, Unknown, 06/26/20) fluphenazine (Verified Allergy, Unknown, 06/26/20) lithium (Verified Allergy, Unknown, 06/26/20) loxapine (Verified Allergy, Unknown, 06/26/20) meperidine (Verified Allergy, Unknown, 06/26/20) thioridazine (Verified Allergy, Unknown, 06/26/20) thiothixene (Verified Allergy, Unknown, 06/26/20) nicotine (Verified Adverse Reaction, Unknown, 08/01/20) Pt chews on transdermal patches, please do not give. HEATHER PRAJAPATI DO Sep 21, 2020 10:42
[2020-09-21 16:54] VITALS: BP 130/82
[2020-09-22] MEDS: NICOTINE POLACRILEX 2 MG GUM PO PRN ×4 (06:29→20:05)
[2020-09-22] MEDS: CYANOCOBALAMIN 500 MCG TAB PO SCH (07:56)
[2020-09-22] MEDS: BETAMETHASONE DIP 0.05% OINT 15 GM TOP SCH (07:57)
[2020-09-22] MEDS: PYRIDOXINE 50 MG TAB PO SCH (07:57)
[2020-09-22] MEDS: BENZTROPINE 0.5 MG TAB PO SCH ×2 (07:57→20:04)
[2020-09-22] MEDS: ASCORBIC ACID 250 MG TAB PO SCH (07:57)
[2020-09-22] MEDS: GABAPENTIN 300 MG CAP PO SCH ×3 (07:57→20:04)
[2020-09-22] MEDS: haloperidoL 5 MG TAB PO PRN ×3 (09:34→22:13)
--- NOTE | 2020-09-22 09:45 | MHIPNPDOC ---
[facility] Progress Note Progress Note DATE OF SERVICE: 09/22/20 HISTORY: The patient has met with today, he reports that he feels "fine" on the increased Haldol, he still fairly paranoid, although less agitated and irritabl e, he goes to groups from time to time and is more social in the milieu. He reports that Haldol is the only medication that they have been helpful and denies any significant problems from the medications. VITAL SIGNS: See below. NEW TEST RESULTS: None. CURRENT MEDICATIONS: See below. MENTAL STATUS EXAMINATION: General hygiene fair Speech: [Spontaneous and fluid] Thought processes: tangential Thought content: hopelessness, paranoid Abstract reasoning, and computation: Stabilizing Description of associations: Stabilizing Description of abnormal or psychotic thoughts: Denies SI at this time, stabilizing paranoid ideation Judgment: Stabilizing Insight: Stabilizing Orientation: [Alert and orientated 3] Recent and remote memory: [Intact] Attention span and concentration: [Intact] Fund of knowledge: [Adequate] Mood: "Great doc" Affect: flat DIAGNOSES: 1. Schizoaffective disorder bipolar type, most recent episode depressed 2. Tobacco use disorder. ASSESSMENT: increasing paranoid ideation will require continued medication titration, referral to [facility] in process for long-term care MANAGEMENT PLAN: Continue to Haldol 10 mg TID Cogentin to continue to prevent EPS Continue Abilify 5 mg QHS TIME SPENT: 15 minutes. Vital Signs Vital Signs Date Time Temp Pulse Resp B/P (MAP) Pulse Ox O2 Delivery O2 Flow Rate FiO2 09/21/20 16:54 99.2 82 16 130/82 (98) 99 Room Air Current Medications Current Medications Medications (Trade) Dose Ordered Sig/Jovany Route PRN Reason Start Time Stop Time Status Last Admin Dose Admin Acetaminophen (Tylenol Tab) 650 mg Q6HP PRN PO HEADACHE or DISCOMFORT 08/21/20 18:00 09/18/20 16:10 Al Hydrox/Mg Hydrox/Simethicone (Mylanta) 30 ml Q4HP PRN PO HEARTBURN/INDIGESTION 08/21/20 18:00 09/16/20 19:17 Aripiprazole (AbiLIFY) 5 mg QHS PO 09/19/20 21:00 09/21/20 19:57 Ascorbic Acid (Vitamin C) 250 mg DAILY PO 08/22/20 09:00 09/22/20 07:57 Benztropine Mesylate (Cogentin) 0.5 mg BID PO 08/21/20 21:00 09/22/20 07:57 Betamethasone Dipropionate (Diprosone) apply daily to effec... DAILY TOP 09/12/20 09:00 09/17/20 07:54 Cyanocobalamin (Vitamin B12) 1,000 mcg DAILY PO 08/22/20 09:00 09/22/20 07:56 Gabapentin (Neurontin) 300 mg TID PO 09/02/20 16:00 09/22/20 07:57 Haloperidol (Haldol) 5 mg Q4HP PRN PO AGITATION 08/23/20 15:30 09/22/20 09:34 Haloperidol (Haldol) 10 mg BID PO 08/21/20 21:00 09/15/20 10:36 DC 09/15/20 08:07 Haloperidol (Haldol) 10 mg BID PO 09/16/20 21:00 09/21/20 18:58 DC 09/21/20 07:59 Haloperidol (Haldol) 10 mg TID PO 09/21/20 21:00 09/22/20 07:56 Home Med (Med Rec Complete!) ASDIRECTED XX 08/21/20 17:00 08/21/20 16:56 DC Magnesium Hydroxide (Milk Of Magnesia) 30 ml DAILYPRN PRN PO CONSTIPATION 08/21/20 18:00 09/11/20 17:17 Nicotine (Nicorette) 2 mg Q4HP PRN PO NICOTINE WITHDRAWAL 08/22/20 08:00 09/22/20 06:29 Olanzapine (ZyPREXA ZYDIS) 5 mg Q6HP PRN PO AGITATION 08/21/20 18:00 Cancel Pyridoxine HCl (Vitamin B6) 50 mg DAILY PO 08/22/20 09:00 09/22/20 07:57 Sertraline HCl (Zoloft) 25 mg DAILY PO 09/12/20 09:00 09/15/20 10:36 DC 09/12/20 07:52 Trazodone HCl (Desyrel) 50 mg QHSP PRN PO INSOMNIA 08/21/20 18:00 09/20/20 20:59 Allergies Coded Allergies: Phenothiazines (Verified Allergy, Unknown, 06/26/20) fluphenazine (Verified Allergy, Unknown, 06/26/20) lithium (Verified Allergy, Unknown, 06/26/20) loxapine (Verified Allergy, Unknown, 06/26/20) meperidine (Verified Allergy, Unknown, 06/26/20) thioridazine (Verified Allergy, Unknown, 06/26/20) thiothixene (Verified Allergy, Unknown, 06/26/20) nicotine (Verified Adverse Reaction, Unknown, 08/01/20) Pt chews on transdermal patches, please do not give. HEATHER PRAJAPATI DO Sep 22, 2020 09:45
[2020-09-22 16:00] VITALS: BP 132/68
[2020-09-23] MEDS: NICOTINE POLACRILEX 2 MG GUM PO PRN ×5 (05:47→20:06)
[2020-09-23 06:08] VITALS: BP 111/57
[2020-09-23] MEDS: ASCORBIC ACID 250 MG TAB PO SCH (07:59)
[2020-09-23] MEDS: GABAPENTIN 300 MG CAP PO SCH ×3 (08:00→20:06)
[2020-09-23] MEDS: BENZTROPINE 0.5 MG TAB PO SCH ×2 (08:00→20:06)
[2020-09-23] MEDS: PYRIDOXINE 50 MG TAB PO SCH (08:00)
[2020-09-23] MEDS: BETAMETHASONE DIP 0.05% OINT 15 GM TOP SCH (08:00)
[2020-09-23] MEDS: CYANOCOBALAMIN 500 MCG TAB PO SCH (08:00)
[2020-09-23 16:23] VITALS: BP 119/80
[2020-09-23] MEDS: haloperidoL 5 MG TAB PO PRN (17:32)
[2020-09-23] MEDS: traZODone 50 MG TAB PO PRN (22:28)
[2020-09-24] MEDS: NICOTINE POLACRILEX 2 MG GUM PO PRN ×5 (00:08→19:17)
[2020-09-24 06:40] VITALS: BP 164/92
[2020-09-24] MEDS: BENZTROPINE 0.5 MG TAB PO SCH ×2 (07:56→20:03)
[2020-09-24] MEDS: CYANOCOBALAMIN 500 MCG TAB PO SCH (07:56)
[2020-09-24] MEDS: ASCORBIC ACID 250 MG TAB PO SCH (07:56)
[2020-09-24] MEDS: PYRIDOXINE 50 MG TAB PO SCH (07:56)
[2020-09-24] MEDS: GABAPENTIN 300 MG CAP PO SCH ×3 (07:56→20:02)
[2020-09-24] MEDS: BETAMETHASONE DIP 0.05% OINT 15 GM TOP SCH (07:57)
[2020-09-24] MEDS: haloperidoL 5 MG TAB PO PRN ×2 (12:16→22:17)
[2020-09-24 18:35] VITALS: BP 128/71
[2020-09-25] MEDS: NICOTINE POLACRILEX 2 MG GUM PO PRN ×5 (02:55→21:43)
[2020-09-25] MEDS: haloperidoL 5 MG TAB PO PRN ×2 (04:13→18:10)
[2020-09-25 06:29] VITALS: BP 105/59
[2020-09-25] MEDS: PYRIDOXINE 50 MG TAB PO SCH (08:05)
[2020-09-25] MEDS: BETAMETHASONE DIP 0.05% OINT 15 GM TOP SCH (08:06)
[2020-09-25] MEDS: GABAPENTIN 300 MG CAP PO SCH ×3 (08:06→21:42)
[2020-09-25] MEDS: BENZTROPINE 0.5 MG TAB PO SCH ×2 (08:06→21:42)
[2020-09-25] MEDS: ASCORBIC ACID 250 MG TAB PO SCH (08:06)
[2020-09-25] MEDS: CYANOCOBALAMIN 500 MCG TAB PO SCH (08:06)
--- NOTE | 2020-09-25 09:57 | MHIPNPDOC ---
[facility] Progress Note Progress Note DATE OF SERVICE: 09/25/20 HISTORY: The patient is met with, is still fairly paranoid although he seems more calm and less anxious, he reports that he still feels that going to [place] would be the best option for him, the patient otherwise reports that Haldol is helpful and denies any significant side effects, he reports he is doing things work for him, he becomes very upset when discussed about the Haldol long-acting injectable feeling that it does not help him as much of the oral is more sufficient. He still seems to have difficulty acknowledging his multiple readmissions and is making slow progress back to baseline. Staff has noticed he is less overtly irritable and has not been making racist overtures to other patients. VITAL SIGNS: See below. NEW TEST RESULTS: None. CURRENT MEDICATIONS: See below. MENTAL STATUS EXAMINATION: General hygiene fair Speech: [Spontaneous and fluid] Thought processes: tangential Thought content: hopelessness, paranoid Abstract reasoning, and computation: Stabilizing Description of associations: Stabilizing Description of abnormal or psychotic thoughts: Denies SI at this time, stabilizing paranoid ideation Judgment: Stabilizing Insight: Stabilizing Orientation: [Alert and orientated 3] Recent and remote memory: [Intact] Attention span and concentration: [Intact] Fund of knowledge: [Adequate] Mood: "Great doc" Affect: flat DIAGNOSES: 1. Schizoaffective disorder bipolar type, most recent episode depressed 2. Tobacco use disorder. ASSESSMENT: increasing paranoid ideation will require continued medication titration, referral to [facility] in process for long-term care MANAGEMENT PLAN: Continue to Haldol 10 mg TID Cogentin to continue to prevent EPS Continue Abilify 5 mg QHS TIME SPENT: 15 minutes. Vital Signs Vital Signs Date Time Temp Pulse Resp B/P (MAP) Pulse Ox O2 Delivery O2 Flow Rate FiO2 09/25/20 06:29 97.2 77 16 105/59 (74) 09/24/20 18:35 96 Room Air Current Medications Current Medications Medications (Trade) Dose Ordered Sig/Jovany Route PRN Reason Start Time Stop Time Status Last Admin Dose Admin Acetaminophen (Tylenol Tab) 650 mg Q6HP PRN PO HEADACHE or DISCOMFORT 08/21/20 18:00 09/18/20 16:10 Al Hydrox/Mg Hydrox/Simethicone (Mylanta) 30 ml Q4HP PRN PO HEARTBURN/INDIGESTION 08/21/20 18:00 09/16/20 19:17 Aripiprazole (AbiLIFY) 5 mg QHS PO 09/19/20 21:00 09/24/20 20:02 Ascorbic Acid (Vitamin C) 250 mg DAILY PO 08/22/20 09:00 09/25/20 08:06 Benztropine Mesylate (Cogentin) 0.5 mg BID PO 08/21/20 21:00 09/25/20 08:06 Betamethasone Dipropionate (Diprosone) apply daily to effec... DAILY TOP 09/12/20 09:00 09/25/20 08:06 Cyanocobalamin (Vitamin B12) 1,000 mcg DAILY PO 08/22/20 09:00 09/25/20 08:06 Gabapentin (Neurontin) 300 mg TID PO 09/02/20 16:00 09/25/20 08:06 Haloperidol (Haldol) 5 mg Q4HP PRN PO AGITATION 08/23/20 15:30 09/25/20 04:13 Haloperidol (Haldol) 10 mg BID PO 08/21/20 21:00 09/15/20 10:36 DC 09/15/20 08:07 Haloperidol (Haldol) 10 mg BID PO 09/16/20 21:00 09/21/20 18:58 DC 09/21/20 07:59 Haloperidol (Haldol) 10 mg TID PO 09/21/20 21:00 09/25/20 08:06 Home Med (Med Rec Complete!) ASDIRECTED XX 08/21/20 17:00 08/21/20 16:56 DC Magnesium Hydroxide (Milk Of Magnesia) 30 ml DAILYPRN PRN PO CONSTIPATION 08/21/20 18:00 09/11/20 17:17 Nicotine (Nicorette) 2 mg Q4HP PRN PO NICOTINE WITHDRAWAL 08/22/20 08:00 09/25/20 08:06 Olanzapine (ZyPREXA ZYDIS) 5 mg Q6HP PRN PO AGITATION 08/21/20 18:00 Cancel Pyridoxine HCl (Vitamin B6) 50 mg DAILY PO 08/22/20 09:00 09/25/20 08:05 Sertraline HCl (Zoloft) 25 mg DAILY PO 09/12/20 09:00 09/15/20 10:36 DC 09/12/20 07:52 Trazodone HCl (Desyrel) 50 mg QHSP PRN PO INSOMNIA 08/21/20 18:00 09/23/20 22:28 Allergies Coded Allergies: Phenothiazines (Verified Allergy, Unknown, 06/26/20) fluphenazine (Verified Allergy, Unknown, 06/26/20) lithium (Verified Allergy, Unknown, 06/26/20) loxapine (Verified Allergy, Unknown, 06/26/20) meperidine (Verified Allergy, Unknown, 06/26/20) thioridazine (Verified Allergy, Unknown, 06/26/20) thiothixene (Verified Allergy, Unknown, 06/26/20) nicotine (Verified Adverse Reaction, Unknown, 08/01/20) Pt chews on transdermal patches, please do not give. HEATHER PRAJAPATI DO Sep 25, 2020 09:57
[2020-09-25 16:00] VITALS: BP 104/68
[2020-09-26] MEDS: NICOTINE POLACRILEX 2 MG GUM PO PRN ×4 (05:43→20:34)
[2020-09-26 06:24] VITALS: BP 132/64
[2020-09-26] MEDS: haloperidoL 5 MG TAB PO PRN (06:33)
[2020-09-26] MEDS: PYRIDOXINE 50 MG TAB PO SCH (08:03)
[2020-09-26] MEDS: BENZTROPINE 0.5 MG TAB PO SCH ×2 (08:03→20:33)
[2020-09-26] MEDS: ASCORBIC ACID 250 MG TAB PO SCH (08:03)
[2020-09-26] MEDS: CYANOCOBALAMIN 500 MCG TAB PO SCH (08:03)
[2020-09-26] MEDS: GABAPENTIN 300 MG CAP PO SCH ×3 (08:03→20:33)
[2020-09-26] MEDS: BETAMETHASONE DIP 0.05% OINT 15 GM TOP SCH (08:04)
--- NOTE | 2020-09-26 16:13 | MHIPNPDOC ---
[facility] Progress Note Progress Note DATE OF SERVICE: 09/26/20 HISTORY: Patient is a 55 year old Single, Disabled, Domiciled, Male who was living in an apartment that was run by [employer]. He began to feel paranoid t here and stated that he did not feel safe to live in his apartment anymore. He believes that people are taking his things and he states that he is distrustful of the people there. Pt. was recently d/c from [facility] on 08/15 VITAL SIGNS: See below. NEW TEST RESULTS: CURRENT MEDICATIONS: See below. MENTAL STATUS EXAMINATION: Patient is a 55 year old Single, Disabled, Domiciled, Male who was living in an apartment that was run by [employer]. He began to feel paranoid there and stated that he did not feel safe to live in his apartment anymore. Language skills are intact Thought processes including: mildly linear, at times disorganized and tangential Thought content: denies depression and anxiety but continues to be paranoid. Denies suicidal/homicidal ideation, planning or intent. Abstract reasoning, and computation: fair Description of associations: denies, none observed Description of abnormal or psychotic thoughts: denies, none observed. Judgment: fair Insight: fair Orientation: alert and oriented to person, place, time Recent and remote memory: fair Attention span and concentration: fair Language: fair Fund of knowledge: average Mood: Flat mood "I am trying to get through the day Affect: flat DIAGNOSES: 1. Schizoaffective disorder bipolar type, most recent episode depressed 2. Tobacco use disorder. ASSESSMENT: Patient remains paranoid, states "I am just trying to get through the day. I want to focus on that. States that he became paranoid when he started doing drugs and at one point in his rambling stated that he might return to using Opiates when I asked him to repeat himself, he denied saying anything about substance use. Reported "I am not depressed, I am not anxious, I am fine." MANAGEMENT PLAN: Continue all medications as ordered, patient does not appear to be stable to be discharged into the community. He is agreeable to [facility]. TIME SPENT: 25 minutes. Vital Signs Vital Signs Date Time Temp Pulse Resp B/P (MAP) Pulse Ox O2 Delivery O2 Flow Rate FiO2 09/26/20 06:24 97.3 78 18 132/64 (86) 09/25/20 16:00 98 Room Air Current Medications Current Medications Medications (Trade) Dose Ordered Sig/Jovany Route PRN Reason Start Time Stop Time Status Last Admin Dose Admin Acetaminophen (Tylenol Tab) 650 mg Q6HP PRN PO HEADACHE or DISCOMFORT 08/21/20 18:00 09/18/20 16:10 Al Hydrox/Mg Hydrox/Simethicone (Mylanta) 30 ml Q4HP PRN PO HEARTBURN/INDIGESTION 08/21/20 18:00 09/16/20 19:17 Aripiprazole (AbiLIFY) 5 mg QHS PO 09/19/20 21:00 09/25/20 21:42 Ascorbic Acid (Vitamin C) 250 mg DAILY PO 08/22/20 09:00 09/26/20 08:03 Benztropine Mesylate (Cogentin) 0.5 mg BID PO 08/21/20 21:00 09/26/20 08:03 Betamethasone Dipropionate (Diprosone) apply daily to effec... DAILY TOP 09/12/20 09:00 09/26/20 08:04 Cyanocobalamin (Vitamin B12) 1,000 mcg DAILY PO 08/22/20 09:00 09/26/20 08:03 Gabapentin (Neurontin) 300 mg TID PO 09/02/20 16:00 09/26/20 14:59 Haloperidol (Haldol) 5 mg Q4HP PRN PO AGITATION 08/23/20 15:30 09/26/20 06:33 Haloperidol (Haldol) 10 mg BID PO 08/21/20 21:00 09/15/20 10:36 DC 09/15/20 08:07 Haloperidol (Haldol) 10 mg BID PO 09/16/20 21:00 09/21/20 18:58 DC 09/21/20 07:59 Haloperidol (Haldol) 10 mg TID PO 09/21/20 21:00 09/26/20 14:59 Home Med (Med Rec Complete!) ASDIRECTED XX 08/21/20 17:00 08/21/20 16:56 DC Magnesium Hydroxide (Milk Of Magnesia) 30 ml DAILYPRN PRN PO CONSTIPATION 08/21/20 18:00 09/11/20 17:17 Nicotine (Nicorette) 2 mg Q4HP PRN PO NICOTINE WITHDRAWAL 08/22/20 08:00 09/26/20 14:00 Olanzapine (ZyPREXA ZYDIS) 5 mg Q6HP PRN PO AGITATION 08/21/20 18:00 Cancel Pyridoxine HCl (Vitamin B6) 50 mg DAILY PO 08/22/20 09:00 09/26/20 08:03 Sertraline HCl (Zoloft) 25 mg DAILY PO 09/12/20 09:00 09/15/20 10:36 DC 09/12/20 07:52 Trazodone HCl (Desyrel) 50 mg QHSP PRN PO INSOMNIA 08/21/20 18:00 09/23/20 22:28 Allergies Coded Allergies: Phenothiazines (Verified Allergy, Unknown, 06/26/20) fluphenazine (Verified Allergy, Unknown, 06/26/20) lithium (Verified Allergy, Unknown, 06/26/20) loxapine (Verified Allergy, Unknown, 06/26/20) meperidine (Verified Allergy, Unknown, 06/26/20) thioridazine (Verified Allergy, Unknown, 06/26/20) thiothixene (Verified Allergy, Unknown, 06/26/20) nicotine (Verified Adverse Reaction, Unknown, 08/01/20) Pt chews on transdermal patches, please do not give. LASHAUN ADAMS NP Sep 26, 2020 16:13
[2020-09-26 16:23] VITALS: BP 100/76
[2020-09-27] MEDS: NICOTINE POLACRILEX 2 MG GUM PO PRN ×4 (03:13→20:05)
[2020-09-27] MEDS: haloperidoL 5 MG TAB PO PRN ×3 (06:05→22:25)
[2020-09-27] MEDS: ASCORBIC ACID 250 MG TAB PO SCH (08:46)
[2020-09-27] MEDS: BENZTROPINE 0.5 MG TAB PO SCH ×2 (08:47→20:53)
[2020-09-27] MEDS: CYANOCOBALAMIN 500 MCG TAB PO SCH (08:47)
[2020-09-27] MEDS: GABAPENTIN 300 MG CAP PO SCH ×3 (08:47→20:53)
[2020-09-27] MEDS: PYRIDOXINE 50 MG TAB PO SCH (08:47)
[2020-09-27] MEDS: BETAMETHASONE DIP 0.05% OINT 15 GM TOP SCH (08:48)
--- NOTE | 2020-09-27 12:48 | MHIPNPDOC ---
[facility] Progress Note Progress Note DATE OF SERVICE: 09/27/20 HISTORY: The patient has met with, he is very strange does not want to be in the office stating he is "scared" of meeting in there. He still "fairly bizarre, however when discussed about him going to [facility], he is open to it after discussion, he has never been to the unit as far as I am aware and still has some bizarreness on the unit. He appears quite depressed and disengaged but continually states "I am okay". Staff notes that he is less irritable and angry but more paranoid. VITAL SIGNS: See below. NEW TEST RESULTS: None. CURRENT MEDICATIONS: See below. MENTAL STATUS EXAMINATION: General hygiene fair Speech: [Spontaneous and fluid] Thought processes: tangential Thought content: hopelessness, paranoid Abstract reasoning, and computation: Stabilizing Description of associations: Stabilizing Description of abnormal or psychotic thoughts: Denies SI at this time, stabilizing paranoid ideation Judgment: Stabilizing Insight: Stabilizing Orientation: [Alert and orientated 3] Recent and remote memory: [Intact] Attention span and concentration: [Intact] Fund of knowledge: [Adequate] Mood: "I do not want to go in there" Affect: flat DIAGNOSES: 1. Schizoaffective disorder bipolar type, most recent episode depressed 2. Tobacco use disorder. ASSESSMENT: increasing paranoid ideation will require continued medication titration, referral to [facility] in process for long-term care MANAGEMENT PLAN: Continue to Haldol 10 mg TID Cogentin to continue to prevent EPS Increase to Abilify 10 mg QHS TIME SPENT: 15 minutes. Vital Signs Vital Signs Date Time Temp Pulse Resp B/P (MAP) Pulse Ox O2 Delivery O2 Flow Rate FiO2 09/26/20 16:23 98.4 100 18 100/76 (84) 100 Room Air Current Medications Current Medications Medications (Trade) Dose Ordered Sig/Jovany Route PRN Reason Start Time Stop Time Status Last Admin Dose Admin Acetaminophen (Tylenol Tab) 650 mg Q6HP PRN PO HEADACHE or DISCOMFORT 08/21/20 18:00 09/18/20 16:10 Al Hydrox/Mg Hydrox/Simethicone (Mylanta) 30 ml Q4HP PRN PO HEARTBURN/INDIGESTION 08/21/20 18:00 09/16/20 19:17 Aripiprazole (AbiLIFY) 5 mg QHS PO 09/19/20 21:00 09/26/20 20:33 Ascorbic Acid (Vitamin C) 250 mg DAILY PO 08/22/20 09:00 09/27/20 08:46 Benztropine Mesylate (Cogentin) 0.5 mg BID PO 08/21/20 21:00 09/27/20 08:47 Betamethasone Dipropionate (Diprosone) apply daily to effec... DAILY TOP 09/12/20 09:00 09/26/20 08:04 Cyanocobalamin (Vitamin B12) 1,000 mcg DAILY PO 08/22/20 09:00 09/27/20 08:47 Gabapentin (Neurontin) 300 mg TID PO 09/02/20 16:00 09/27/20 08:47 Haloperidol (Haldol) 5 mg Q4HP PRN PO AGITATION 08/23/20 15:30 09/27/20 11:14 Haloperidol (Haldol) 10 mg BID PO 08/21/20 21:00 09/15/20 10:36 DC 09/15/20 08:07 Haloperidol (Haldol) 10 mg BID PO 09/16/20 21:00 09/21/20 18:58 DC 09/21/20 07:59 Haloperidol (Haldol) 10 mg TID PO 09/21/20 21:00 09/27/20 08:46 Home Med (Med Rec Complete!) ASDIRECTED XX 08/21/20 17:00 08/21/20 16:56 DC Magnesium Hydroxide (Milk Of Magnesia) 30 ml DAILYPRN PRN PO CONSTIPATION 08/21/20 18:00 09/11/20 17:17 Nicotine (Nicorette) 2 mg Q4HP PRN PO NICOTINE WITHDRAWAL 08/22/20 08:00 09/27/20 12:27 Olanzapine (ZyPREXA ZYDIS) 5 mg Q6HP PRN PO AGITATION 08/21/20 18:00 Cancel Pyridoxine HCl (Vitamin B6) 50 mg DAILY PO 08/22/20 09:00 09/27/20 08:47 Sertraline HCl (Zoloft) 25 mg DAILY PO 09/12/20 09:00 09/15/20 10:36 DC 09/12/20 07:52 Trazodone HCl (Desyrel) 50 mg QHSP PRN PO INSOMNIA 08/21/20 18:00 09/23/20 22:28 Allergies Coded Allergies: Phenothiazines (Verified Allergy, Unknown, 06/26/20) fluphenazine (Verified Allergy, Unknown, 06/26/20) lithium (Verified Allergy, Unknown, 06/26/20) loxapine (Verified Allergy, Unknown, 06/26/20) meperidine (Verified Allergy, Unknown, 06/26/20) thioridazine (Verified Allergy, Unknown, 06/26/20) thiothixene (Verified Allergy, Unknown, 06/26/20) nicotine (Verified Adverse Reaction, Unknown, 08/01/20) Pt chews on transdermal patches, please do not give. HEATHER PRAJAPATI DO Sep 27, 2020 12:48
[2020-09-27 16:28] VITALS: BP 135/79
[2020-09-27] MEDS: ARIPiprazole 10 MG TAB PO SCH (20:54)
[2020-09-27] MEDS: traZODone 50 MG TAB PO PRN (22:17)
[2020-09-28] MEDS: NICOTINE POLACRILEX 2 MG GUM PO PRN ×5 (00:14→20:39)
[2020-09-28] MEDS: GABAPENTIN 300 MG CAP PO SCH ×3 (08:00→20:38)
[2020-09-28] MEDS: BENZTROPINE 0.5 MG TAB PO SCH ×3 (09:00→20:37)
[2020-09-28] MEDS: PYRIDOXINE 50 MG TAB PO SCH (09:00)
[2020-09-28] MEDS: BETAMETHASONE DIP 0.05% OINT 15 GM TOP SCH (09:00)
[2020-09-28] MEDS: CYANOCOBALAMIN 500 MCG TAB PO SCH (09:00)
[2020-09-28] MEDS: ASCORBIC ACID 250 MG TAB PO SCH (09:00)
[2020-09-28] MEDS: haloperidoL 5 MG TAB PO PRN (15:15)
--- NOTE | 2020-09-28 15:19 | MHIPNPDOC ---
[facility] Progress Note Progress Note DATE OF SERVICE: 09/28/20 HISTORY: Patient is a 55 year old Single, Disabled, Domiciled, Male who was living in an apartment that was run by [employer]. He began to feel paranoid there and stated that he did not feel safe to live in his apartment anymore. He believes that people are taking his things and he states that he is distrustful of the people there. Pt. was recently d/c from [facility] on 08/15 VITAL SIGNS: See below. NEW TEST RESULTS: CURRENT MEDICATIONS: See below. MENTAL STATUS EXAMINATION: Patient is a 55 year old Single, Disabled, Domiciled, Male who was living in an apartment that was run by [employer]. He began to feel paranoid there and stated that he did not feel safe to live in his apartment anymore. Language skills are intact Thought processes including: mildly linear, at times disorganized and tangential Thought content: denies depression and anxiety but continues to be paranoid. Denies suicidal/homicidal ideation, planning or intent. Abstract reasoning, and computation: fair Description of associations: denies, none observed Description of abnormal or psychotic thoughts: denies, none observed. Judgment: fair Insight: fair Orientation: alert and oriented to person, place, time Recent and remote memory: fair Attention span and concentration: fair Language: fair Fund of knowledge: average Mood: Flat mood "I am trying to get through the day Affect: flat DIAGNOSES: 1. Schizoaffective disorder bipolar type, most recent episode depressed 2. Tobacco use disorder. ASSESSMENT: Patient remains paranoid, states "I am anxious about getting out. I want to be out in the next two weeks whether its to [place] or somewhere else. I just want to disappear and I want to be someplace where there aren't too many people, right now I am not anxious, I am fine." He reports that on the weekends he is more depressed and stated, "I am not hearing voices I didn't get a hit of acid like that other roshan walking around here, I don't want to live like that. " He appears with continued paranoia which may require continued medication titration, referral to [facility] in process for long-term care MANAGEMENT PLAN: Continue all medications as ordered, patient does not appear to be stable to be discharged into the community. He is agreeable to [facility]. Continue to Haldol 10 mg TID, Cogentin to continue to prevent EPS, Increase to Abilify 10 mg QHS TIME SPENT: 15 minutes. Vital Signs Vital Signs Date Time Temp Pulse Resp B/P (MAP) Pulse Ox O2 Delivery O2 Flow Rate FiO2 09/28/20 10:54 Room Air 09/27/20 16:28 98.3 94 16 135/79 (97) 96 Current Medications Current Medications Medications (Trade) Dose Ordered Sig/Jovany Route PRN Reason Start Time Stop Time Status Last Admin Dose Admin Acetaminophen (Tylenol Tab) 650 mg Q6HP PRN PO HEADACHE or DISCOMFORT 08/21/20 18:00 09/18/20 16:10 Al Hydrox/Mg Hydrox/Simethicone (Mylanta) 30 ml Q4HP PRN PO HEARTBURN/INDIGESTION 08/21/20 18:00 09/16/20 19:17 Aripiprazole (AbiLIFY) 5 mg QHS PO 09/19/20 21:00 09/27/20 14:26 DC 09/26/20 20:33 Aripiprazole (AbiLIFY) 10 mg QHS PO 09/27/20 21:00 09/27/20 20:54 Ascorbic Acid (Vitamin C) 250 mg DAILY PO 08/22/20 09:00 09/27/20 08:46 Benztropine Mesylate (Cogentin) 0.5 mg BID PO 08/21/20 21:00 09/28/20 09:30 Betamethasone Dipropionate (Diprosone) apply daily to effec... DAILY TOP 09/12/20 09:00 09/26/20 08:04 Cyanocobalamin (Vitamin B12) 1,000 mcg DAILY PO 08/22/20 09:00 09/27/20 08:47 Gabapentin (Neurontin) 300 mg TID PO 09/02/20 16:00 09/28/20 08:00 Haloperidol (Haldol) 5 mg Q4HP PRN PO AGITATION 08/23/20 15:30 09/27/20 22:25 Haloperidol (Haldol) 10 mg BID PO 08/21/20 21:00 09/15/20 10:36 DC 09/15/20 08:07 Haloperidol (Haldol) 10 mg BID PO 09/16/20 21:00 09/21/20 18:58 DC 09/21/20 07:59 Haloperidol (Haldol) 10 mg TID PO 09/21/20 21:00 09/28/20 09:30 Home Med (Med Rec Complete!) ASDIRECTED XX 08/21/20 17:00 08/21/20 16:56 DC Magnesium Hydroxide (Milk Of Magnesia) 30 ml DAILYPRN PRN PO CONSTIPATION 08/21/20 18:00 09/11/20 17:17 Nicotine (Nicorette) 2 mg Q4HP PRN PO NICOTINE WITHDRAWAL 08/22/20 08:00 09/28/20 10:39 Olanzapine (ZyPREXA ZYDIS) 5 mg Q6HP PRN PO AGITATION 08/21/20 18:00 Cancel Pyridoxine HCl (Vitamin B6) 50 mg DAILY PO 08/22/20 09:00 09/27/20 08:47 Sertraline HCl (Zoloft) 25 mg DAILY PO 09/12/20 09:00 09/15/20 10:36 DC 09/12/20 07:52 Trazodone HCl (Desyrel) 50 mg QHSP PRN PO INSOMNIA 08/21/20 18:00 09/27/20 22:17 Allergies Coded Allergies: Phenothiazines (Verified Allergy, Unknown, 06/26/20) fluphenazine (Verified Allergy, Unknown, 06/26/20) lithium (Verified Allergy, Unknown, 06/26/20) loxapine (Verified Allergy, Unknown, 06/26/20) meperidine (Verified Allergy, Unknown, 06/26/20) thioridazine (Verified Allergy, Unknown, 06/26/20) thiothixene (Verified Allergy, Unknown, 06/26/20) nicotine (Verified Adverse Reaction, Unknown, 08/01/20) Pt chews on transdermal patches, please do not give. LASHAUN ADAMS NP Sep 28, 2020 15:19
[2020-09-28 16:28] VITALS: BP 133/58
[2020-09-28] MEDS: traZODone 50 MG TAB PO PRN (20:37)
[2020-09-28] MEDS: ARIPiprazole 10 MG TAB PO SCH (20:38)
[2020-09-29] MEDS: NICOTINE POLACRILEX 2 MG GUM PO PRN ×4 (05:26→21:00)
[2020-09-29] MEDS: CYANOCOBALAMIN 500 MCG TAB PO SCH (08:10)
[2020-09-29] MEDS: BENZTROPINE 0.5 MG TAB PO SCH ×2 (08:10→21:00)
[2020-09-29] MEDS: ASCORBIC ACID 250 MG TAB PO SCH (08:10)
[2020-09-29] MEDS: GABAPENTIN 300 MG CAP PO SCH ×3 (08:10→21:00)
[2020-09-29] MEDS: PYRIDOXINE 50 MG TAB PO SCH (08:11)
[2020-09-29] MEDS: BETAMETHASONE DIP 0.05% OINT 15 GM TOP SCH (09:00)
[2020-09-29] MEDS: IBUPROFEN 600MG TAB PO PRN ×2 (09:42→18:06)
[2020-09-29] MEDS: haloperidoL 5 MG TAB PO PRN (12:58)
--- NOTE | 2020-09-29 14:05 | MHIPNPDOC ---
[facility] Progress Note Progress Note DATE OF SERVICE: 09/29/20 HISTORY: Patient is a 55 year old Single, Disabled, Domiciled, Male who was living in an apartment that was run by [employer]. He began to feel paranoid there and stated that he did not feel safe to live in his apartment anymore. He believes that people are taking his things and he states that he is distrustful of the people there. VITAL SIGNS: See below. NEW TEST RESULTS: CURRENT MEDICATIONS: See below. MENTAL STATUS EXAMINATION: Patient is a 55 year old Single, Disabled, Domiciled, Male who was living in an apartment that was run by [employer]. He began to feel paranoid there and stated that he did not feel safe to live in his apartment anymore. Language skills are intact Thought processes including: mildly linear, Thought content: denies depression and anxiety but continues to be paranoid. Denies suicidal/homicidal ideation, planning or intent. Abstract reasoning, and computation: fair Description of associations: denies, none observed Description of abnormal or psychotic thoughts: denies, none observed. Judgment: fair Insight: fair Orientation: alert and oriented to person, place, time Recent and remote memory: fair Attention span and concentration: fair Language: fair Fund of knowledge: average Mood: Flat mood "I am tired" Affect: flat DIAGNOSES: 1. Schizoaffective disorder bipolar type, most recent episode depressed 2. Tobacco use disorder. ASSESSMENT: Patient presents to the interview, very sleep and drowsy. He reports that he had poor sleep. He appears to have heightened paranoia in the interview, having little to no responses to my questions. He presents with flat affect and states that he is trying to stay away from several peers, and refused to explain why he wants to avoid them. Staff report continued paranoia which may require continued medication titration, referral to [facility] in process for long-term care MANAGEMENT PLAN: Continue all medications as ordered, patient does not appear to be stable to be discharged into the community. He is agreeable to [facility]. TIME SPENT: 15 minutes. Vital Signs Vital Signs Date Time Temp Pulse Resp B/P (MAP) Pulse Ox O2 Delivery O2 Flow Rate FiO2 09/28/20 16:28 98.4 88 16 133/58 (83) 09/28/20 10:54 Room Air 12/9/20 16:28 96 Current Medications Current Medications Medications (Trade) Dose Ordered Sig/Jovany Route PRN Reason Start Time Stop Time Status Last Admin Dose Admin Acetaminophen (Tylenol Tab) 650 mg Q6HP PRN PO HEADACHE or DISCOMFORT 08/21/20 18:00 09/28/20 20:45 DC 09/18/20 16:10 Al Hydrox/Mg Hydrox/Simethicone (Mylanta) 30 ml Q4HP PRN PO HEARTBURN/INDIGESTION 08/21/20 18:00 09/16/20 19:17 Aripiprazole (AbiLIFY) 5 mg QHS PO 09/19/20 21:00 09/27/20 14:26 DC 09/26/20 20:33 Aripiprazole (AbiLIFY) 10 mg QHS PO 09/27/20 21:00 09/28/20 20:38 Ascorbic Acid (Vitamin C) 250 mg DAILY PO 08/22/20 09:00 09/29/20 08:10 Benztropine Mesylate (Cogentin) 0.5 mg BID PO 08/21/20 21:00 09/29/20 08:10 Betamethasone Dipropionate (Diprosone) apply daily to effec... DAILY TOP 09/12/20 09:00 09/26/20 08:04 Cyanocobalamin (Vitamin B12) 1,000 mcg DAILY PO 08/22/20 09:00 09/29/20 08:10 Gabapentin (Neurontin) 300 mg TID PO 09/02/20 16:00 09/29/20 08:10 Haloperidol (Haldol) 5 mg Q4HP PRN PO AGITATION 08/23/20 15:30 09/29/20 12:58 Haloperidol (Haldol) 10 mg BID PO 08/21/20 21:00 09/15/20 10:36 DC 09/15/20 08:07 Haloperidol (Haldol) 10 mg BID PO 09/16/20 21:00 09/21/20 18:58 DC 09/21/20 07:59 Haloperidol (Haldol) 10 mg TID PO 09/21/20 21:00 09/29/20 08:10 Home Med (Med Rec Complete!) ASDIRECTED XX 08/21/20 17:00 08/21/20 16:56 DC Ibuprofen (Advil) 600 mg Q6HP PRN PO pain/discomfort 09/28/20 20:45 09/29/20 09:42 Magnesium Hydroxide (Milk Of Magnesia) 30 ml DAILYPRN PRN PO CONSTIPATION 08/21/20 18:00 09/11/20 17:17 Nicotine (Nicorette) 2 mg Q4HP PRN PO NICOTINE WITHDRAWAL 08/22/20 08:00 09/29/20 09:41 Olanzapine (ZyPREXA ZYDIS) 5 mg Q6HP PRN PO AGITATION 08/21/20 18:00 Cancel Pyridoxine HCl (Vitamin B6) 50 mg DAILY PO 08/22/20 09:00 09/29/20 08:11 Sertraline HCl (Zoloft) 25 mg DAILY PO 09/12/20 09:00 09/15/20 10:36 DC 09/12/20 07:52 Trazodone HCl (Desyrel) 50 mg QHSP PRN PO INSOMNIA 08/21/20 18:00 09/28/20 20:37 Allergies Coded Allergies: Phenothiazines (Verified Allergy, Unknown, 06/26/20) fluphenazine (Verified Allergy, Unknown, 06/26/20) lithium (Verified Allergy, Unknown, 06/26/20) loxapine (Verified Allergy, Unknown, 06/26/20) meperidine (Verified Allergy, Unknown, 06/26/20) thioridazine (Verified Allergy, Unknown, 06/26/20) thiothixene (Verified Allergy, Unknown, 06/26/20) nicotine (Verified Adverse Reaction, Unknown, 08/01/20) Pt chews on transdermal patches, please do not give. LASHAUN ADAMS NP Sep 29, 2020 14:05
[2020-09-29 17:10] VITALS: BP 105/62
[2020-09-29] MEDS: ARIPiprazole 10 MG TAB PO SCH (21:00)
[2020-09-30] MEDS: NICOTINE POLACRILEX 2 MG GUM PO PRN ×2 (05:39→09:57)
[2020-09-30 06:00] VITALS: BP 122/68
[2020-09-30] MEDS: ASCORBIC ACID 250 MG TAB PO SCH (07:59)
[2020-09-30] MEDS: PYRIDOXINE 50 MG TAB PO SCH (07:59)
[2020-09-30] MEDS: BENZTROPINE 0.5 MG TAB PO SCH ×2 (07:59→21:19)
[2020-09-30] MEDS: CYANOCOBALAMIN 500 MCG TAB PO SCH (07:59)
[2020-09-30] MEDS: BETAMETHASONE DIP 0.05% OINT 15 GM TOP SCH (07:59)
[2020-09-30] MEDS: GABAPENTIN 300 MG CAP PO SCH ×3 (07:59→21:19)
[2020-09-30] MEDS: IBUPROFEN 600MG TAB PO PRN (12:14)
[2020-09-30 16:32] VITALS: BP 118/67
[2020-09-30] MEDS: ARIPiprazole 10 MG TAB PO SCH (21:19)
[2020-10-01] MEDS: NICOTINE POLACRILEX 2 MG GUM PO PRN ×5 (00:25→20:35)
[2020-10-01] MEDS: IBUPROFEN 600MG TAB PO PRN ×2 (01:59→11:29)
[2020-10-01 06:46] VITALS: BP 110/60
[2020-10-01] MEDS: ASCORBIC ACID 250 MG TAB PO SCH (07:48)
[2020-10-01] MEDS: BENZTROPINE 0.5 MG TAB PO SCH ×2 (07:48→19:50)
[2020-10-01] MEDS: PYRIDOXINE 50 MG TAB PO SCH (07:48)
[2020-10-01] MEDS: GABAPENTIN 300 MG CAP PO SCH ×3 (07:48→19:50)
[2020-10-01] MEDS: CYANOCOBALAMIN 500 MCG TAB PO SCH (07:50)
[2020-10-01] MEDS: BETAMETHASONE DIP 0.05% OINT 15 GM TOP SCH (08:26)
[2020-10-01 17:42] VITALS: BP 110/60
[2020-10-01] MEDS: ARIPiprazole 10 MG TAB PO SCH (19:50)
[2020-10-02] MEDS: NICOTINE POLACRILEX 2 MG GUM PO PRN ×4 (05:55→18:58)
[2020-10-02] MEDS: IBUPROFEN 600MG TAB PO PRN ×2 (05:56→12:33)
[2020-10-02 06:32] VITALS: BP 114/64
[2020-10-02] MEDS: ASCORBIC ACID 250 MG TAB PO SCH (08:06)
[2020-10-02] MEDS: PYRIDOXINE 50 MG TAB PO SCH (08:06)
[2020-10-02] MEDS: CYANOCOBALAMIN 500 MCG TAB PO SCH (08:07)
[2020-10-02] MEDS: GABAPENTIN 300 MG CAP PO SCH ×3 (08:07→20:00)
[2020-10-02] MEDS: BENZTROPINE 0.5 MG TAB PO SCH ×2 (08:07→20:00)
[2020-10-02] MEDS: BETAMETHASONE DIP 0.05% OINT 15 GM TOP SCH (08:10)
--- NOTE | 2020-10-02 08:10 | MHIPNPDOC ---
[facility] Progress Note Progress Note DATE OF SERVICE: 10/02/20 HISTORY: The patient's met with today, he reports that the agitation on the unit and the screaming by another patient has made it difficult for him to feel calm, he worries about being attacked describes increased paranoid thoughts that others have been out to get him including mother and brother. He describes that he still open to the long-term treatment and wonders whether he'll ever get better. He describes he hasn't had any significant problems from his medications, he is more isolative although goes to groups from time to time and is seen in the milieu. VITAL SIGNS: See below. NEW TEST RESULTS: None. CURRENT MEDICATIONS: See below. MENTAL STATUS EXAMINATION: General : hygiene fair Speech: [Spontaneous and fluid] Thought processes: tangential Thought content: Some worsening paranoid thoughts Abstract reasoning, and computation: Appears to be mildly destabilizing Description of associations: Peers to be mildly destabilizing Description of abnormal or psychotic thoughts: Denies SI at this time, mildly he stabilizing paranoid ideation Judgment: Fair Insight: Mildly improved Orientation: [Alert and orientated 3] Recent and remote memory: [Intact] Attention span and concentration: [Intact] Fund of knowledge: [Adequate] Mood: "I know they want to get me" Affect: flat, little reactivity DIAGNOSES: 1. Schizoaffective disorder bipolar type, most recent episode depressed 2. Tobacco use disorder. ASSESSMENT: Will continue with referral for long-term care, patient is very ambivalent about medication titration and refuses an antidepressant, feeling that it will make him more suicidal. We'll have to continue the Haldol and the Abilify titration, although he is approaching maximum dose of both ended appears to little effect. The high emotionally expressed environment lately makes his paranoia worse, however given his multiple relapses of psychosis his baseline may be reestablish in a much lower level where he'll need a recovery model and eventual triaged to the [facility], which she was recently accepted to MANAGEMENT PLAN: Continue to Haldol 10 mg TID Cogentin to continue to prevent EPS Continue to Abilify 10 mg QHS TIME SPENT: 15 minutes. Vital Signs Vital Signs Date Time Temp Pulse Resp B/P (MAP) Pulse Ox O2 Delivery O2 Flow Rate FiO2 10/02/20 06:32 97.9 90 14 114/64 (81) 96 Room Air Current Medications Current Medications Medications (Trade) Dose Ordered Sig/Jovany Route PRN Reason Start Time Stop Time Status Last Admin Dose Admin Acetaminophen (Tylenol Tab) 650 mg Q6HP PRN PO HEADACHE or DISCOMFORT 08/21/20 18:00 09/28/20 20:45 DC 09/18/20 16:10 Al Hydrox/Mg Hydrox/Simethicone (Mylanta) 30 ml Q4HP PRN PO HEARTBURN/INDIGESTION 08/21/20 18:00 09/16/20 19:17 Aripiprazole (AbiLIFY) 5 mg QHS PO 09/19/20 21:00 09/27/20 14:26 DC 09/26/20 20:33 Aripiprazole (AbiLIFY) 10 mg QHS PO 09/27/20 21:00 10/01/20 19:50 Ascorbic Acid (Vitamin C) 250 mg DAILY PO 08/22/20 09:00 10/01/20 07:48 Benztropine Mesylate (Cogentin) 0.5 mg BID PO 08/21/20 21:00 10/01/20 19:50 Betamethasone Dipropionate (Diprosone) apply daily to effec... DAILY TOP 09/12/20 09:00 09/26/20 08:04 Cyanocobalamin (Vitamin B12) 1,000 mcg DAILY PO 08/22/20 09:00 10/01/20 07:50 Gabapentin (Neurontin) 300 mg TID PO 09/02/20 16:00 10/01/20 19:50 Haloperidol (Haldol) 5 mg Q4HP PRN PO AGITATION 08/23/20 15:30 09/29/20 12:58 Haloperidol (Haldol) 10 mg BID PO 08/21/20 21:00 09/15/20 10:36 DC 09/15/20 08:07 Haloperidol (Haldol) 10 mg BID PO 09/16/20 21:00 09/21/20 18:58 DC 09/21/20 07:59 Haloperidol (Haldol) 10 mg TID PO 09/21/20 21:00 10/01/20 19:50 Home Med (Med Rec Complete!) ASDIRECTED XX 08/21/20 17:00 08/21/20 16:56 DC Ibuprofen (Advil) 600 mg Q6HP PRN PO pain/discomfort 09/28/20 20:45 10/02/20 05:56 Magnesium Hydroxide (Milk Of Magnesia) 30 ml DAILYPRN PRN PO CONSTIPATION 08/21/20 18:00 09/11/20 17:17 Nicotine (Nicorette) 2 mg Q4HP PRN PO NICOTINE WITHDRAWAL 08/22/20 08:00 10/02/20 05:55 Olanzapine (ZyPREXA ZYDIS) 5 mg Q6HP PRN PO AGITATION 08/21/20 18:00 Cancel Pyridoxine HCl (Vitamin B6) 50 mg DAILY PO 08/22/20 09:00 10/01/20 07:48 Sertraline HCl (Zoloft) 25 mg DAILY PO 09/12/20 09:00 09/15/20 10:36 DC 09/12/20 07:52 Trazodone HCl (Desyrel) 50 mg QHSP PRN PO INSOMNIA 08/21/20 18:00 09/28/20 20:37 Allergies Coded Allergies: Phenothiazines (Verified Allergy, Unknown, 06/26/20) fluphenazine (Verified Allergy, Unknown, 06/26/20) lithium (Verified Allergy, Unknown, 06/26/20) loxapine (Verified Allergy, Unknown, 06/26/20) meperidine (Verified Allergy, Unknown, 06/26/20) thioridazine (Verified Allergy, Unknown, 06/26/20) thiothixene (Verified Allergy, Unknown, 06/26/20) nicotine (Verified Adverse Reaction, Unknown, 08/01/20) Pt chews on transdermal patches, please do not give. HEATHER PRAJAPATI DO Oct 02, 2020 08:10
[2020-10-02 17:59] VITALS: BP 121/71
[2020-10-02] MEDS: ARIPiprazole 10 MG TAB PO SCH (20:01)
[2020-10-03] MEDS: NICOTINE POLACRILEX 2 MG GUM PO PRN ×4 (05:33→19:14)
[2020-10-03 06:34] VITALS: BP 106/62
[2020-10-03] MEDS: CYANOCOBALAMIN 500 MCG TAB PO SCH (08:06)
[2020-10-03] MEDS: PYRIDOXINE 50 MG TAB PO SCH (08:06)
[2020-10-03] MEDS: ASCORBIC ACID 250 MG TAB PO SCH (08:06)
[2020-10-03] MEDS: BENZTROPINE 0.5 MG TAB PO SCH ×2 (08:07→20:56)
[2020-10-03] MEDS: GABAPENTIN 300 MG CAP PO SCH ×3 (08:07→20:56)
[2020-10-03] MEDS: BETAMETHASONE DIP 0.05% OINT 15 GM TOP SCH (08:07)
--- NOTE | 2020-10-03 09:14 | MHIPNPDOC ---
[facility] Progress Note Progress Note DATE OF SERVICE: 10/03/20 HISTORY: The patient is met with today and reports he is feeling stressed due to the multiple yelling episodes, he is isolative to his room but otherwise engages reporting that the medications "just fine, he has little to talk about and lays in his bed. Otherwise he has not had any significant agitation but does appear to become significantly upset around another patient who is quite agitated. VITAL SIGNS: See below. NEW TEST RESULTS: None. CURRENT MEDICATIONS: See below. MENTAL STATUS EXAMINATION: General : hygiene fair Speech: [Spontaneous and fluid] Thought processes: tangential Thought content: Some worsening paranoid thoughts Abstract reasoning, and computation: Appears to be mildly destabilizing Description of associations: Peers to be mildly destabilizing Description of abnormal or psychotic thoughts: Denies SI at this time, mildly he stabilizing paranoid ideation Judgment: Fair Insight: Mildly improved Orientation: [Alert and orientated 3] Recent and remote memory: [Intact] Attention span and concentration: [Intact] Fund of knowledge: [Adequate] Mood: "whatever Affect: flat, little reactivity DIAGNOSES: 1. Schizoaffective disorder bipolar type, most recent episode depressed 2. Tobacco use disorder. ASSESSMENT: We will continue medications as current, likely increase of Abilify over time, his paranoia still appears to be quite present and will likely need to continue treatment in long-term setting MANAGEMENT PLAN: Continue to Haldol 10 mg TID Cogentin to continue to prevent EPS Continue to Abilify 10 mg QHS TIME SPENT: 15 minutes. Vital Signs Vital Signs Date Time Temp Pulse Resp B/P (MAP) Pulse Ox O2 Delivery O2 Flow Rate FiO2 10/03/20 06:34 98.1 74 16 106/62 (77) 96 Room Air Current Medications Current Medications Medications (Trade) Dose Ordered Sig/Jovany Route PRN Reason Start Time Stop Time Status Last Admin Dose Admin Acetaminophen (Tylenol Tab) 650 mg Q6HP PRN PO HEADACHE or DISCOMFORT 08/21/20 18:00 09/28/20 20:45 DC 09/18/20 16:10 Al Hydrox/Mg Hydrox/Simethicone (Mylanta) 30 ml Q4HP PRN PO HEARTBURN/INDIGESTION 08/21/20 18:00 09/16/20 19:17 Aripiprazole (AbiLIFY) 5 mg QHS PO 09/19/20 21:00 12/9/20 14:26 DC 09/26/20 20:33 Aripiprazole (AbiLIFY) 10 mg QHS PO 09/27/20 21:00 10/02/20 20:01 Ascorbic Acid (Vitamin C) 250 mg DAILY PO 08/22/20 09:00 10/03/20 08:06 Benztropine Mesylate (Cogentin) 0.5 mg BID PO 08/21/20 21:00 10/03/20 08:07 Betamethasone Dipropionate (Diprosone) apply daily to effec... DAILY TOP 09/12/20 09:00 09/26/20 08:04 Cyanocobalamin (Vitamin B12) 1,000 mcg DAILY PO 08/22/20 09:00 10/03/20 08:06 Gabapentin (Neurontin) 300 mg TID PO 09/02/20 16:00 10/03/20 08:07 Haloperidol (Haldol) 5 mg Q4HP PRN PO AGITATION 08/23/20 15:30 09/29/20 12:58 Haloperidol (Haldol) 10 mg BID PO 08/21/20 21:00 09/15/20 10:36 DC 09/15/20 08:07 Haloperidol (Haldol) 10 mg BID PO 09/16/20 21:00 09/21/20 18:58 DC 09/21/20 07:59 Haloperidol (Haldol) 10 mg TID PO 09/21/20 21:00 10/03/20 08:06 Home Med (Med Rec Complete!) ASDIRECTED XX 08/21/20 17:00 08/21/20 16:56 DC Ibuprofen (Advil) 600 mg Q6HP PRN PO pain/discomfort 09/28/20 20:45 10/02/20 12:33 Magnesium Hydroxide (Milk Of Magnesia) 30 ml DAILYPRN PRN PO CONSTIPATION 08/21/20 18:00 09/11/20 17:17 Nicotine (Nicorette) 2 mg Q4HP PRN PO NICOTINE WITHDRAWAL 08/22/20 08:00 10/03/20 05:33 Olanzapine (ZyPREXA ZYDIS) 5 mg Q6HP PRN PO AGITATION 08/21/20 18:00 Cancel Pyridoxine HCl (Vitamin B6) 50 mg DAILY PO 08/22/20 09:00 10/03/20 08:06 Sertraline HCl (Zoloft) 25 mg DAILY PO 09/12/20 09:00 09/15/20 10:36 DC 09/12/20 07:52 Trazodone HCl (Desyrel) 50 mg QHSP PRN PO INSOMNIA 08/21/20 18:00 09/28/20 20:37 Allergies Coded Allergies: Phenothiazines (Verified Allergy, Unknown, 06/26/20) fluphenazine (Verified Allergy, Unknown, 06/26/20) lithium (Verified Allergy, Unknown, 06/26/20) loxapine (Verified Allergy, Unknown, 06/26/20) meperidine (Verified Allergy, Unknown, 06/26/20) thioridazine (Verified Allergy, Unknown, 06/26/20) thiothixene (Verified Allergy, Unknown, 06/26/20) nicotine (Verified Adverse Reaction, Unknown, 08/01/20) Pt chews on transdermal patches, please do not give. HEATHER PRAJAPATI DO Oct 03, 2020 09:14
[2020-10-03] MEDS: haloperidoL 5 MG TAB PO PRN (10:16)
[2020-10-03] MEDS: IBUPROFEN 600MG TAB PO PRN (11:53)
[2020-10-03] MEDS: ARIPiprazole 10 MG TAB PO SCH (20:56)
[2020-10-04] MEDS: NICOTINE POLACRILEX 2 MG GUM PO PRN ×4 (05:39→20:37)
[2020-10-04 06:00] VITALS: BP 91/50
[2020-10-04] MEDS: IBUPROFEN 600MG TAB PO PRN ×2 (07:46→21:33)
[2020-10-04] MEDS: ASCORBIC ACID 250 MG TAB PO SCH (08:29)
[2020-10-04] MEDS: CYANOCOBALAMIN 500 MCG TAB PO SCH (08:30)
[2020-10-04] MEDS: PYRIDOXINE 50 MG TAB PO SCH (08:30)
[2020-10-04] MEDS: BETAMETHASONE DIP 0.05% OINT 15 GM TOP SCH (08:31)
[2020-10-04] MEDS: GABAPENTIN 300 MG CAP PO SCH ×3 (08:31→20:37)
[2020-10-04] MEDS: BENZTROPINE 0.5 MG TAB PO SCH ×2 (08:31→20:37)
--- NOTE | 2020-10-04 11:19 | MHIPNPDOC ---
[facility] Progress Note Progress Note DATE OF SERVICE: 10/04/20 HISTORY: The patient refused to meet with me, stating that he "did not want talk about it" staff report that he has been mildly more agitated due to the multiple yelling episodes and has been isolated to his room. VITAL SIGNS: See below. NEW TEST RESULTS: None. CURRENT MEDICATIONS: See below. MENTAL STATUS EXAMINATION: General : hygiene fair Speech: [Spontaneous and fluid] Thought processes: tangential Thought content: Some worsening paranoid thoughts Abstract reasoning, and computation: Appears to be mildly destabilizing Description of associations: Peers to be mildly destabilizing Description of abnormal or psychotic thoughts: Unknown Judgment: Fair Insight: Poor Orientation: [Alert and orientated 3] Recent and remote memory: [Intact] Attention span and concentration: [Intact] Fund of knowledge: [Adequate] Mood: "Go away" Affect: flat, little reactivity DIAGNOSES: 1. Schizoaffective disorder bipolar type, most recent episode depressed 2. Tobacco use disorder. ASSESSMENT: Continue to search for long-term placement, patient could be having difficulty from high expressed emotional environment at this time MANAGEMENT PLAN: Continue to Haldol 10 mg TID Cogentin to continue to prevent EPS Continue to Abilify 10 mg QHS TIME SPENT: 15 minutes. Vital Signs Vital Signs Date Time Temp Pulse Resp B/P (MAP) Pulse Ox O2 Delivery O2 Flow Rate FiO2 10/04/20 06:00 98.5 78 18 91/50 (64) 98 Room Air Current Medications Current Medications Medications (Trade) Dose Ordered Sig/Jovany Route PRN Reason Start Time Stop Time Status Last Admin Dose Admin Acetaminophen (Tylenol Tab) 650 mg Q6HP PRN PO HEADACHE or DISCOMFORT 08/21/20 18:00 09/28/20 20:45 DC 09/18/20 16:10 Al Hydrox/Mg Hydrox/Simethicone (Mylanta) 30 ml Q4HP PRN PO HEARTBURN/INDIGESTION 08/21/20 18:00 09/16/20 19:17 Aripiprazole (AbiLIFY) 5 mg QHS PO 09/19/20 21:00 09/27/20 14:26 DC 09/26/20 20:33 Aripiprazole (AbiLIFY) 10 mg QHS PO 09/27/20 21:00 10/03/20 20:56 Ascorbic Acid (Vitamin C) 250 mg DAILY PO 08/22/20 09:00 10/04/20 08:29 Benztropine Mesylate (Cogentin) 0.5 mg BID PO 08/21/20 21:00 10/04/20 08:31 Betamethasone Dipropionate (Diprosone) apply daily to effec... DAILY TOP 09/12/20 09:00 09/26/20 08:04 Cyanocobalamin (Vitamin B12) 1,000 mcg DAILY PO 08/22/20 09:00 10/04/20 08:30 Gabapentin (Neurontin) 300 mg TID PO 09/02/20 16:00 10/04/20 08:31 Haloperidol (Haldol) 5 mg Q4HP PRN PO AGITATION 08/23/20 15:30 10/03/20 10:16 Haloperidol (Haldol) 10 mg BID PO 08/21/20 21:00 09/15/20 10:36 DC 09/15/20 08:07 Haloperidol (Haldol) 10 mg BID PO 09/16/20 21:00 09/21/20 18:58 DC 09/21/20 07:59 Haloperidol (Haldol) 10 mg TID PO 09/21/20 21:00 10/04/20 08:30 Home Med (Med Rec Complete!) ASDIRECTED XX 08/21/20 17:00 08/21/20 16:56 DC Ibuprofen (Advil) 600 mg Q6HP PRN PO pain/discomfort 09/28/20 20:45 10/04/20 07:46 Magnesium Hydroxide (Milk Of Magnesia) 30 ml DAILYPRN PRN PO CONSTIPATION 08/21/20 18:00 09/11/20 17:17 Nicotine (Nicorette) 2 mg Q4HP PRN PO NICOTINE WITHDRAWAL 08/22/20 08:00 10/04/20 09:45 Olanzapine (ZyPREXA ZYDIS) 5 mg Q6HP PRN PO AGITATION 08/21/20 18:00 Cancel Pyridoxine HCl (Vitamin B6) 50 mg DAILY PO 08/22/20 09:00 10/04/20 08:30 Sertraline HCl (Zoloft) 25 mg DAILY PO 09/12/20 09:00 09/15/20 10:36 DC 09/12/20 07:52 Trazodone HCl (Desyrel) 50 mg QHSP PRN PO INSOMNIA 08/21/20 18:00 09/28/20 20:37 Allergies Coded Allergies: Phenothiazines (Verified Allergy, Unknown, 06/26/20) fluphenazine (Verified Allergy, Unknown, 06/26/20) lithium (Verified Allergy, Unknown, 06/26/20) loxapine (Verified Allergy, Unknown, 06/26/20) meperidine (Verified Allergy, Unknown, 06/26/20) thioridazine (Verified Allergy, Unknown, 06/26/20) thiothixene (Verified Allergy, Unknown, 06/26/20) nicotine (Verified Adverse Reaction, Unknown, 08/01/20) Pt chews on transdermal patches, please do not give. HEATHER PRAJAPATI DO Oct 04, 2020 11:19
[2020-10-04] MEDS: ARIPiprazole 10 MG TAB PO SCH (20:36)
[2020-10-05] MEDS: MAALOX 30 ML SUSP *UDC PO PRN (01:48)
[2020-10-05] MEDS: NICOTINE POLACRILEX 2 MG GUM PO PRN ×5 (01:48→22:21)
[2020-10-05] MEDS: haloperidoL 5 MG TAB PO PRN ×2 (03:36→22:21)
[2020-10-05 06:34] VITALS: BP 129/79
[2020-10-05] MEDS: BENZTROPINE 0.5 MG TAB PO SCH ×2 (07:59→20:29)
[2020-10-05] MEDS: GABAPENTIN 300 MG CAP PO SCH ×3 (07:59→20:28)
[2020-10-05] MEDS: CYANOCOBALAMIN 500 MCG TAB PO SCH (08:00)
[2020-10-05] MEDS: PYRIDOXINE 50 MG TAB PO SCH (08:00)
[2020-10-05] MEDS: BETAMETHASONE DIP 0.05% OINT 15 GM TOP SCH (08:01)
[2020-10-05] MEDS: IBUPROFEN 600MG TAB PO PRN ×3 (08:08→20:29)
[2020-10-05] MEDS: ASCORBIC ACID 250 MG TAB PO SCH (09:00)
--- NOTE | 2020-10-05 14:27 | MHIPNPDOC ---
[facility] Progress Note Progress Note DATE OF SERVICE: 10/05/20 HISTORY: The patient is met with today, he reports that he is generally amenable to meaning only for short time, he reports that he had some "things" that he was dealing with personally but does not want to describe them in detail. He goes as far as stated that he feels "fine" on the medication and hasn't been "agitated", he denies any side effects from medication but is quite guarded and generally not interested in talking about any specifics or paranoid thoughts he might of been having. He is more isolative and appears environment makes him more paranoid. VITAL SIGNS: See below. NEW TEST RESULTS: None. CURRENT MEDICATIONS: See below. MENTAL STATUS EXAMINATION: General : hygiene fair Speech: [Spontaneous and fluid] Thought processes: tangential Thought content: Guarded Abstract reasoning, and computation: Mildly impaired Description of associations: Loose Description of abnormal or psychotic thoughts: Denies any suicidal/homicidal ideation, denies auditory or visual hallucinations Judgment: Fair Insight: Poor Orientation: [Alert and orientated 3] Recent and remote memory: [Intact] Attention span and concentration: [Intact] Fund of knowledge: [Adequate] Mood: "Fine" Affect: flat, little reactivity DIAGNOSES: 1. Schizoaffective disorder bipolar type, most recent episode depressed 2. Tobacco use disorder. ASSESSMENT: Likely need long-term treatment, with any medications, will generally shy away from changing the Abilify or increasing as it's likely that it will make only minimal benefit, the environment might be provoking some his p aranoid thoughts and thus I do not want to increase medications that could be better addressed by lowering the high expressed emotional environment. MANAGEMENT PLAN: Continue to Haldol 10 mg TID Cogentin to continue to prevent EPS Continue to Abilify 10 mg QHS TIME SPENT: 15 minutes. Vital Signs Vital Signs Date Time Temp Pulse Resp B/P (MAP) Pulse Ox O2 Delivery O2 Flow Rate FiO2 10/05/20 06:34 98.3 118 18 129/79 (96) 97 Room Air Current Medications Current Medications Medications (Trade) Dose Ordered Sig/Jovany Route PRN Reason Start Time Stop Time Status Last Admin Dose Admin Acetaminophen (Tylenol Tab) 650 mg Q6HP PRN PO HEADACHE or DISCOMFORT 08/21/20 18:00 09/28/20 20:45 DC 09/18/20 16:10 Al Hydrox/Mg Hydrox/Simethicone (Mylanta) 30 ml Q4HP PRN PO HEARTBURN/INDIGESTION 08/21/20 18:00 10/05/20 01:48 Aripiprazole (AbiLIFY) 5 mg QHS PO 09/19/20 21:00 09/27/20 14:26 DC 09/26/20 20:33 Aripiprazole (AbiLIFY) 10 mg QHS PO 09/27/20 21:00 10/04/20 20:36 Ascorbic Acid (Vitamin C) 250 mg DAILY PO 08/22/20 09:00 10/05/20 09:00 Benztropine Mesylate (Cogentin) 0.5 mg BID PO 08/21/20 21:00 10/05/20 07:59 Betamethasone Dipropionate (Diprosone) apply daily to effec... DAILY TOP 09/12/20 09:00 10/05/20 08:01 Cyanocobalamin (Vitamin B12) 1,000 mcg DAILY PO 08/22/20 09:00 10/05/20 08:00 Gabapentin (Neurontin) 300 mg TID PO 09/02/20 16:00 10/05/20 07:59 Haloperidol (Haldol) 5 mg Q4HP PRN PO AGITATION 08/23/20 15:30 10/05/20 03:36 Haloperidol (Haldol) 10 mg BID PO 08/21/20 21:00 09/15/20 10:36 DC 09/15/20 08:07 Haloperidol (Haldol) 10 mg BID PO 09/16/20 21:00 09/21/20 18:58 DC 09/21/20 07:59 Haloperidol (Haldol) 10 mg TID PO 09/21/20 21:00 10/05/20 08:00 Home Med (Med Rec Complete!) ASDIRECTED XX 08/21/20 17:00 08/21/20 16:56 DC Ibuprofen (Advil) 600 mg Q6HP PRN PO pain/discomfort 09/28/20 20:45 10/05/20 13:07 Magnesium Hydroxide (Milk Of Magnesia) 30 ml DAILYPRN PRN PO CONSTIPATION 08/21/20 18:00 09/11/20 17:17 Nicotine (Nicorette) 2 mg Q4HP PRN PO NICOTINE WITHDRAWAL 08/22/20 08:00 10/05/20 11:59 Olanzapine (ZyPREXA ZYDIS) 5 mg Q6HP PRN PO AGITATION 08/21/20 18:00 Cancel Pyridoxine HCl (Vitamin B6) 50 mg DAILY PO 08/22/20 09:00 10/05/20 08:00 Sertraline HCl (Zoloft) 25 mg DAILY PO 09/12/20 09:00 09/15/20 10:36 DC 09/12/20 07:52 Trazodone HCl (Desyrel) 50 mg QHSP PRN PO INSOMNIA 08/21/20 18:00 09/28/20 20:37 Allergies Coded Allergies: Phenothiazines (Verified Allergy, Unknown, 06/26/20) fluphenazine (Verified Allergy, Unknown, 06/26/20) lithium (Verified Allergy, Unknown, 06/26/20) loxapine (Verified Allergy, Unknown, 06/26/20) meperidine (Verified Allergy, Unknown, 06/26/20) thioridazine (Verified Allergy, Unknown, 06/26/20) thiothixene (Verified Allergy, Unknown, 06/26/20) nicotine (Verified Adverse Reaction, Unknown, 08/01/20) Pt chews on transdermal patches, please do not give. HEATHER PRAJAPATI DO Oct 05, 2020 14:27
[2020-10-05 16:45] VITALS: BP 123/69
[2020-10-05] MEDS: ARIPiprazole 10 MG TAB PO SCH (20:28)
[2020-10-06] MEDS: NICOTINE POLACRILEX 2 MG GUM PO PRN ×4 (05:41→20:22)
[2020-10-06] MEDS: IBUPROFEN 600MG TAB PO PRN ×2 (06:02→16:39)
[2020-10-06 07:03] VITALS: BP 128/55
[2020-10-06] MEDS: CYANOCOBALAMIN 500 MCG TAB PO SCH (08:09)
[2020-10-06] MEDS: BENZTROPINE 0.5 MG TAB PO SCH ×2 (08:09→20:22)
[2020-10-06] MEDS: GABAPENTIN 300 MG CAP PO SCH ×3 (08:09→20:22)
[2020-10-06] MEDS: ASCORBIC ACID 250 MG TAB PO SCH (08:09)
[2020-10-06] MEDS: PYRIDOXINE 50 MG TAB PO SCH (08:09)
[2020-10-06] MEDS: BETAMETHASONE DIP 0.05% OINT 15 GM TOP SCH (09:00)
--- NOTE | 2020-10-06 12:16 | MHIPNPDOC ---
[facility] Progress Note Progress Note DATE OF SERVICE: 10/06/20 HISTORY: The patient has met with today he describes no major problems at this time, still guarded and does not want discuss anything at length. He describes that the medication is "fine" with no side effects, appearing to be quite tired and isolative. He has been appearing to be quite depressed and discusses little with others, he has difficulty going to groups and since the chairs have been removed from the lounge she finds it difficult to socialize and to be around others at a point that he can tolerate with his paranoia. VITAL SIGNS: See below. NEW TEST RESULTS: None. CURRENT MEDICATIONS: See below. MENTAL STATUS EXAMINATION: General : hygiene fair Speech: [Spontaneous and fluid] Thought processes: tangential Thought content: Guarded Abstract reasoning, and computation: Mildly impaired Description of associations: Loose Description of abnormal or psychotic thoughts: Denies any suicidal/homicidal ideation, denies auditory or visual hallucinations Judgment: Fair Insight: Poor Orientation: [Alert and orientated 3] Recent and remote memory: [Intact] Attention span and concentration: [Intact] Fund of knowledge: [Adequate] Mood: "Fine" Affect: flat, little reactivity DIAGNOSES: 1. Schizoaffective disorder bipolar type, most recent episode depressed 2. Tobacco use disorder. ASSESSMENT: Likely need long-term treatment, with any medications, will generally shy away from changing the Abilify or increasing as it's likely that it will make only minimal benefit, the environment might be provoking some his paranoid thoughts and thus I do not want to increase medications that could be better addressed by lowering the high expressed emotional environment. MANAGEMENT PLAN: Continue to Haldol 10 mg TID Cogentin to continue to prevent EPS Continue to Abilify 10 mg QHS TIME SPENT: 15 minutes. Vital Signs Vital Signs Date Time Temp Pulse Resp B/P (MAP) Pulse Ox O2 Delivery O2 Flow Rate FiO2 10/06/20 07:03 97.8 94 18 128/55 (79) 97 Room Air Current Medications Current Medications Medications (Trade) Dose Ordered Sig/Jovany Route PRN Reason Start Time Stop Time Status Last Admin Dose Admin Acetaminophen (Tylenol Tab) 650 mg Q6HP PRN PO HEADACHE or DISCOMFORT 08/21/20 18:00 09/28/20 20:45 DC 09/18/20 16:10 Al Hydrox/Mg Hydrox/Simethicone (Mylanta) 30 ml Q4HP PRN PO HEARTBURN/INDIGESTION 08/21/20 18:00 10/05/20 01:48 Aripiprazole (AbiLIFY) 5 mg QHS PO 09/19/20 21:00 09/27/20 14:26 DC 09/26/20 20:33 Aripiprazole (AbiLIFY) 10 mg QHS PO 09/27/20 21:00 10/05/20 20:28 Ascorbic Acid (Vitamin C) 250 mg DAILY PO 08/22/20 09:00 10/06/20 08:09 Benztropine Mesylate (Cogentin) 0.5 mg BID PO 08/21/20 21:00 10/06/20 08:09 Betamethasone Dipropionate (Diprosone) apply daily to effec... DAILY TOP 09/12/20 09:00 10/05/20 08:01 Cyanocobalamin (Vitamin B12) 1,000 mcg DAILY PO 08/22/20 09:00 10/06/20 08:09 Gabapentin (Neurontin) 300 mg TID PO 09/02/20 16:00 10/06/20 08:09 Haloperidol (Haldol) 5 mg Q4HP PRN PO AGITATION 08/23/20 15:30 10/05/20 22:21 Haloperidol (Haldol) 10 mg BID PO 08/21/20 21:00 09/15/20 10:36 DC 09/15/20 08:07 Haloperidol (Haldol) 10 mg BID PO 09/16/20 21:00 09/21/20 18:58 DC 09/21/20 07:59 Haloperidol (Haldol) 10 mg TID PO 09/21/20 21:00 10/06/20 08:09 Home Med (Med Rec Complete!) ASDIRECTED XX 08/21/20 17:00 08/21/20 16:56 DC Ibuprofen (Advil) 600 mg Q6HP PRN PO pain/discomfort 09/28/20 20:45 10/06/20 06:02 Magnesium Hydroxide (Milk Of Magnesia) 30 ml DAILYPRN PRN PO CONSTIPATION 08/21/20 18:00 09/11/20 17:17 Nicotine (Nicorette) 2 mg Q4HP PRN PO NICOTINE WITHDRAWAL 08/22/20 08:00 10/06/20 10:03 Olanzapine (ZyPREXA ZYDIS) 5 mg Q6HP PRN PO AGITATION 08/21/20 18:00 Cancel Pyridoxine HCl (Vitamin B6) 50 mg DAILY PO 08/22/20 09:00 10/06/20 08:09 Sertraline HCl (Zoloft) 25 mg DAILY PO 09/12/20 09:00 09/15/20 10:36 DC 09/12/20 07:52 Trazodone HCl (Desyrel) 50 mg QHSP PRN PO INSOMNIA 08/21/20 18:00 09/28/20 20:37 Allergies Coded Allergies: Phenothiazines (Verified Allergy, Unknown, 06/26/20) fluphenazine (Verified Allergy, Unknown, 06/26/20) lithium (Verified Allergy, Unknown, 06/26/20) loxapine (Verified Allergy, Unknown, 06/26/20) meperidine (Verified Allergy, Unknown, 06/26/20) thioridazine (Verified Allergy, Unknown, 06/26/20) thiothixene (Verified Allergy, Unknown, 06/26/20) nicotine (Verified Adverse Reaction, Unknown, 08/01/20) Pt chews on transdermal patches, please do not give. HEATHER PRAJAPATI DO Oct 06, 2020 12:16
[2020-10-06] MEDS: ARIPiprazole 10 MG TAB PO SCH (20:22)
[2020-10-06 20:37] VITALS: BP 118/66
[2020-10-06 22:20] LABS: RSV AMPLIFICATION NEGATIVE (NEGATIVE)
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
[2020-10-07] MEDS ORDERED: CETIRIZINE (ZyrTEC) 10 MG TAB PO SCH (02:15)
[2020-10-07] MEDS ORDERED: ONDANSETRON 4 MG ORAL DISINTEGRATING TAB PO PRN (02:15)
[2020-10-07] MEDS: NICOTINE POLACRILEX 2 MG GUM PO PRN ×4 (05:06→18:48)
[2020-10-07] MEDS: IBUPROFEN 600MG TAB PO PRN ×2 (06:19→20:57)
[2020-10-07 06:37] VITALS: BP 113/63
[2020-10-07] MEDS: PYRIDOXINE 50 MG TAB PO SCH (08:10)
[2020-10-07] MEDS: ASCORBIC ACID 250 MG TAB PO SCH (08:10)
[2020-10-07] MEDS: CYANOCOBALAMIN 500 MCG TAB PO SCH (08:11)
[2020-10-07] MEDS: BENZTROPINE 0.5 MG TAB PO SCH ×2 (08:11→20:06)
[2020-10-07] MEDS: BETAMETHASONE DIP 0.05% OINT 15 GM TOP SCH (08:12)
[2020-10-07] MEDS: GABAPENTIN 300 MG CAP PO SCH ×3 (08:12→20:06)
[2020-10-07] MEDS: haloperidoL 5 MG TAB PO PRN (10:36)
[2020-10-07] MEDS: ARIPiprazole 10 MG TAB PO SCH (20:06)
[2020-10-08] MEDS: NICOTINE POLACRILEX 2 MG GUM PO PRN ×4 (05:07→22:01)
[2020-10-08 06:41] VITALS: BP 108/54
[2020-10-08] MEDS: ASCORBIC ACID 250 MG TAB PO SCH (08:18)
[2020-10-08] MEDS: PYRIDOXINE 50 MG TAB PO SCH (08:18)
[2020-10-08] MEDS: GABAPENTIN 300 MG CAP PO SCH ×3 (08:18→20:06)
[2020-10-08] MEDS: BETAMETHASONE DIP 0.05% OINT 15 GM TOP SCH (08:18)
[2020-10-08] MEDS: BENZTROPINE 0.5 MG TAB PO SCH ×2 (08:18→20:06)
[2020-10-08] MEDS: CYANOCOBALAMIN 500 MCG TAB PO SCH (08:18)
--- NOTE | 2020-10-08 13:03 | CR.PDOC ---
General Date of Consultation: Oct 08, 2020 Consultation REASON FOR CONSULTATION/CHIEF COMPLAINT: Derm consultation was requested following patient complaints of pruritus and to rule out infestation. HISTORY OF PRESENT ILLNESS: Patient c/o a pruritic eruption on bilateral lower extremities x a few days. He notes having applied a topical steroid a few times with improvement. +Family history of eczema/psoriasis ALLERGIES: Please see below. HOME MEDICATIONS: Please see below. PE: -Annular erythematous eczematous plaques on bilateral lower extremities. Nothing noted in interdigital web spaces or flexural creases. A/P: 1. Nummular Eczema -Suggest triamcinolone 0.1% cream to be applied twice daily to affected areas x 2 weeks (5 grams daily) 2. No evidence of Infestation Vital Signs/I&O Vital Signs Date Time Temp Pulse Resp B/P (MAP) Pulse Ox O2 Delivery O2 Flow Rate FiO2 10/08/20 06:41 97.5 68 16 108/54 (72) 95 Room Air Allergies Coded Allergies: Phenothiazines (Verified Allergy, Unknown, 06/26/20) fluphenazine (Verified Allergy, Unknown, 06/26/20) lithium (Verified Allergy, Unknown, 06/26/20) loxapine (Verified Allergy, Unknown, 06/26/20) meperidine (Verified Allergy, Unknown, 06/26/20) thioridazine (Verified Allergy, Unknown, 06/26/20) thiothixene (Verified Allergy, Unknown, 06/26/20) nicotine (Verified Adverse Reaction, Unknown, 08/01/20) Pt chews on transdermal patches, please do not give. Home Medications Scheduled Benztropine Mesylate (Benztropine Mesylate) 0.5 Mg Tablet, 0.5 MG PO BID, (Reported) Haloperidol (Haloperidol) 10 Mg Tablet, 10 MG PO BID, (Reported) Марина Gonzalez PA-C Oct 08, 2020 13:03
[2020-10-08] MEDS: haloperidoL 5 MG TAB PO PRN (17:19)
[2020-10-08] MEDS: ARIPiprazole 10 MG TAB PO SCH (20:05)
[2020-10-08] MEDS: IBUPROFEN 600MG TAB PO PRN (23:31)
[2020-10-09] MEDS: NICOTINE POLACRILEX 2 MG GUM PO PRN ×9 (05:45→22:20)
[2020-10-09 06:28] VITALS: BP 148/96
[2020-10-09] MEDS: ASCORBIC ACID 250 MG TAB PO SCH (07:55)
[2020-10-09] MEDS: GABAPENTIN 300 MG CAP PO SCH ×3 (07:56→20:13)
[2020-10-09] MEDS: BENZTROPINE 0.5 MG TAB PO SCH ×2 (07:56→20:13)
[2020-10-09] MEDS: CYANOCOBALAMIN 500 MCG TAB PO SCH (07:56)
[2020-10-09] MEDS: PYRIDOXINE 50 MG TAB PO SCH (07:56)
[2020-10-09] MEDS: BETAMETHASONE DIP 0.05% OINT 15 GM TOP SCH (07:57)
--- NOTE | 2020-10-09 10:02 | MHIPNPDOC ---
[facility] Progress Note Progress Note DATE OF SERVICE: 10/09/20 HISTORY: The patient is met with today, he is more paranoid and depressed, reports that everything is fine" but generally does not engage very much, he appears to be much more depressed anxious and guarded. He has been more paranoid and asked me if there were cameras in his room, he generally does not engage much and appears to be quite tired and disengaged. VITAL SIGNS: See below. NEW TEST RESULTS: None. CURRENT MEDICATIONS: See below. MENTAL STATUS EXAMINATION: General : hygiene fair Speech: [Spontaneous and fluid] Thought processes: tangential Thought content: Guarded Abstract reasoning, and computation: Mildly impaired Description of associations: Loose Description of abnormal or psychotic thoughts: Denies any suicidal/homicidal ideation, denies auditory or visual hallucinations Judgment: Fair Insight: Poor Orientation: [Alert and orientated 3] Recent and remote memory: [Intact] Attention span and concentration: [Intact] Fund of knowledge: [Adequate] Mood: "Fine" Affect: flat, little reactivity DIAGNOSES: 1. Schizoaffective disorder bipolar type, most recent episode depressed 2. Tobacco use disorder. ASSESSMENT: Continue with pursuing long-term treatment, he will likely need to be slowly tried on other medications he has made it very clear he will not try any antidepressants and I have difficulty justifying a treatment over objection, long-term treatment could be helpful as he could be more depressed due to the setting and the isolation level on the unit MANAGEMENT PLAN: Continue to Haldol 10 mg TID Cogentin to continue to prevent EPS Continue to Abilify 10 mg QHS TIME SPENT: 15 minutes. Vital Signs Vital Signs Date Time Temp Pulse Resp B/P (MAP) Pulse Ox O2 Delivery O2 Flow Rate FiO2 10/09/20 06:28 97.1 86 18 148/96 (113) Room Air 10/08/20 06:41 95 Current Medications Current Medications Medications (Trade) Dose Ordered Sig/Jovany Route PRN Reason Start Time Stop Time Status Last Admin Dose Admin Acetaminophen (Tylenol Tab) 650 mg Q6HP PRN PO HEADACHE or DISCOMFORT 08/21/20 18:00 09/28/20 20:45 DC 09/18/20 16:10 Al Hydrox/Mg Hydrox/Simethicone (Mylanta) 30 ml Q4HP PRN PO HEARTBURN/INDIGESTION 08/21/20 18:00 10/05/20 01:48 Aripiprazole (AbiLIFY) 5 mg QHS PO 09/19/20 21:00 09/27/20 14:26 DC 09/26/20 20:33 Aripiprazole (AbiLIFY) 10 mg QHS PO 09/27/20 21:00 10/08/20 20:05 Ascorbic Acid (Vitamin C) 250 mg DAILY PO 08/22/20 09:00 10/09/20 07:55 Benztropine Mesylate (Cogentin) 0.5 mg BID PO 08/21/20 21:00 10/09/20 07:56 Betamethasone Dipropionate (Diprosone) apply daily to effec... DAILY TOP 09/12/20 09:00 10/05/20 08:01 Cetirizine HCl (ZyrTEC) 5 mg QHS PO 10/07/20 02:15 10/07/20 03:47 DC Cyanocobalamin (Vitamin B12) 1,000 mcg DAILY PO 08/22/20 09:00 10/09/20 07:56 Gabapentin (Neurontin) 300 mg TID PO 09/02/20 16:00 10/09/20 07:56 Haloperidol (Haldol) 5 mg Q4HP PRN PO AGITATION 08/23/20 15:30 10/08/20 17:19 Haloperidol (Haldol) 10 mg BID PO 08/21/20 21:00 09/15/20 10:36 DC 09/15/20 08:07 Haloperidol (Haldol) 10 mg BID PO 09/16/20 21:00 09/21/20 18:58 DC 09/21/20 07:59 Haloperidol (Haldol) 10 mg TID PO 09/21/20 21:00 10/09/20 07:56 Home Med (Med Rec Complete!) ASDIRECTED XX 08/21/20 17:00 08/21/20 16:56 DC Ibuprofen (Advil) 600 mg Q6HP PRN PO pain/discomfort 09/28/20 20:45 10/08/20 23:31 Magnesium Hydroxide (Milk Of Magnesia) 30 ml DAILYPRN PRN PO CONSTIPATION 08/21/20 18:00 09/11/20 17:17 Nicotine (Nicorette) 2 mg Q2HP PRN PO NICOTINE WITHDRAWAL 10/08/20 18:45 10/09/20 10:00 Nicotine (Nicorette) 2 mg Q4HP PRN PO NICOTINE WITHDRAWAL 08/22/20 08:00 10/08/20 18:41 DC 10/08/20 14:40 Olanzapine (ZyPREXA ZYDIS) 5 mg Q6HP PRN PO AGITATION 08/21/20 18:00 Cancel Ondansetron HCl (Zofran Odt) 2 mg Q8HP PRN PO NAUSEA OR VOMITING 10/07/20 02:15 10/07/20 03:49 DC Pyridoxine HCl (Vitamin B6) 50 mg DAILY PO 08/22/20 09:00 10/09/20 07:56 Sertraline HCl (Zoloft) 25 mg DAILY PO 09/12/20 09:00 09/15/20 10:36 DC 09/12/20 07:52 Trazodone HCl (Desyrel) 50 mg QHSP PRN PO INSOMNIA 08/21/20 18:00 09/28/20 20:37 Allergies Coded Allergies: Phenothiazines (Verified Allergy, Unknown, 06/26/20) fluphenazine (Verified Allergy, Unknown, 06/26/20) lithium (Verified Allergy, Unknown, 06/26/20) loxapine (Verified Allergy, Unknown, 06/26/20) meperidine (Verified Allergy, Unknown, 06/26/20) thioridazine (Verified Allergy, Unknown, 06/26/20) thiothixene (Verified Allergy, Unknown, 06/26/20) nicotine (Verified Adverse Reaction, Unknown, 08/01/20) Pt chews on transdermal patches, please do not give. HEATHER PRAJAPATI DO Oct 09, 2020 10:02
[2020-10-09] MEDS: haloperidoL 5 MG TAB PO PRN (10:50)
[2020-10-09 16:00] VITALS: BP 104/63
[2020-10-09] MEDS: ARIPiprazole 10 MG TAB PO SCH (20:13)
[2020-10-10] MEDS: NICOTINE POLACRILEX 2 MG GUM PO PRN ×8 (06:26→22:28)
[2020-10-10] MEDS: GABAPENTIN 300 MG CAP PO SCH ×3 (08:06→20:07)
[2020-10-10] MEDS: BENZTROPINE 0.5 MG TAB PO SCH ×2 (08:07→20:07)
[2020-10-10] MEDS: PYRIDOXINE 50 MG TAB PO SCH (08:08)
[2020-10-10] MEDS: CYANOCOBALAMIN 500 MCG TAB PO SCH (08:08)
[2020-10-10] MEDS: ASCORBIC ACID 250 MG TAB PO SCH (08:09)
[2020-10-10] MEDS: BETAMETHASONE DIP 0.05% OINT 15 GM TOP SCH (08:09)
--- NOTE | 2020-10-10 10:32 | MHIPNPDOC ---
[facility] Progress Note Progress Note DATE OF SERVICE: 10/10/20 HISTORY: The patient was met with today, he still paranoid and bizarre, feeling worse and generally depressed. He has little to say and still worries about others. He is open to going to long-term treatment and reports that he does not contest the 6-month retention, he has little to say appearing quite guarded and dysthymic he still resistant about trying any new medications. VITAL SIGNS: See below. NEW TEST RESULTS: None. CURRENT MEDICATIONS: See below. MENTAL STATUS EXAMINATION: General : hygiene fair Speech: [Spontaneous and fluid] Thought processes: tangential Thought content: Guarded Abstract reasoning, and computation: Mildly impaired Description of associations: Loose Description of abnormal or psychotic thoughts: Denies any suicidal/homicidal ideation, denies auditory or visual hallucinations Judgment: Fair Insight: Poor Orientation: [Alert and orientated 3] Recent and remote memory: [Intact] Attention span and concentration: [Intact] Fund of knowledge: [Adequate] Mood: "Fine" Affect: flat, little reactivity DIAGNOSES: 1. Schizoaffective disorder bipolar type, most recent episode depressed 2. Tobacco use disorder. ASSESSMENT: Continue with referral for long-term MANAGEMENT PLAN: Continue to Haldol 10 mg TID,Cogentin to continue to prevent EPS and Abilify 10 mg QHS TIME SPENT: 15 minutes. Vital Signs Vital Signs Date Time Temp Pulse Resp B/P (MAP) Pulse Ox O2 Delivery O2 Flow Rate FiO2 10/09/20 16:00 98.3 97 18 104/63 (77) 99 10/09/20 06:28 Room Air Current Medications Current Medications Medications (Trade) Dose Ordered Sig/Jovany Route PRN Reason Start Time Stop Time Status Last Admin Dose Admin Acetaminophen (Tylenol Tab) 650 mg Q6HP PRN PO HEADACHE or DISCOMFORT 08/21/20 18:00 09/28/20 20:45 DC 09/18/20 16:10 Al Hydrox/Mg Hydrox/Simethicone (Mylanta) 30 ml Q4HP PRN PO HEARTBURN/INDIGESTION 08/21/20 18:00 10/05/20 01:48 Aripiprazole (AbiLIFY) 5 mg QHS PO 09/19/20 21:00 09/27/20 14:26 DC 09/26/20 20:33 Aripiprazole (AbiLIFY) 10 mg QHS PO 09/27/20 21:00 10/09/20 20:13 Ascorbic Acid (Vitamin C) 250 mg DAILY PO 08/22/20 09:00 10/09/20 07:55 Benztropine Mesylate (Cogentin) 0.5 mg BID PO 08/21/20 21:00 10/10/20 08:07 Betamethasone Dipropionate (Diprosone) apply daily to effec... DAILY TOP 09/12/20 09:00 10/05/20 08:01 Cetirizine HCl (ZyrTEC) 5 mg QHS PO 10/07/20 02:15 10/07/20 03:47 DC Cyanocobalamin (Vitamin B12) 1,000 mcg DAILY PO 08/22/20 09:00 10/09/20 07:56 Gabapentin (Neurontin) 300 mg TID PO 09/02/20 16:00 10/10/20 08:06 Haloperidol (Haldol) 5 mg Q4HP PRN PO AGITATION 08/23/20 15:30 10/09/20 10:50 Haloperidol (Haldol) 10 mg BID PO 08/21/20 21:00 09/15/20 10:36 DC 09/15/20 08:07 Haloperidol (Haldol) 10 mg BID PO 09/16/20 21:00 09/21/20 18:58 DC 09/21/20 07:59 Haloperidol (Haldol) 10 mg TID PO 09/21/20 21:00 10/10/20 08:06 Home Med (Med Rec Complete!) ASDIRECTED XX 08/21/20 17:00 08/21/20 16:56 DC Ibuprofen (Advil) 600 mg Q6HP PRN PO pain/discomfort 09/28/20 20:45 10/08/20 23:31 Magnesium Hydroxide (Milk Of Magnesia) 30 ml DAILYPRN PRN PO CONSTIPATION 08/21/20 18:00 09/11/20 17:17 Nicotine (Nicorette) 2 mg Q2HP PRN PO NICOTINE WITHDRAWAL 10/08/20 18:45 10/10/20 08:42 Nicotine (Nicorette) 2 mg Q4HP PRN PO NICOTINE WITHDRAWAL 08/22/20 08:00 10/08/20 18:41 DC 10/08/20 14:40 Olanzapine (ZyPREXA ZYDIS) 5 mg Q6HP PRN PO AGITATION 08/21/20 18:00 Cancel Ondansetron HCl (Zofran Odt) 2 mg Q8HP PRN PO NAUSEA OR VOMITING 10/07/20 02:15 10/07/20 03:49 DC Pyridoxine HCl (Vitamin B6) 50 mg DAILY PO 08/22/20 09:00 10/09/20 07:56 Sertraline HCl (Zoloft) 25 mg DAILY PO 09/12/20 09:00 09/15/20 10:36 DC 09/12/20 07:52 Trazodone HCl (Desyrel) 50 mg QHSP PRN PO INSOMNIA 08/21/20 18:00 09/28/20 20:37 Allergies Coded Allergies: Phenothiazines (Verified Allergy, Unknown, 06/26/20) fluphenazine (Verified Allergy, Unknown, 06/26/20) lithium (Verified Allergy, Unknown, 06/26/20) loxapine (Verified Allergy, Unknown, 06/26/20) meperidine (Verified Allergy, Unknown, 06/26/20) thioridazine (Verified Allergy, Unknown, 06/26/20) thiothixene (Verified Allergy, Unknown, 06/26/20) nicotine (Verified Adverse Reaction, Unknown, 08/01/20) Pt chews on transdermal patches, please do not give. HEATHER PRAJAPATI DO Oct 10, 2020 10:32
[2020-10-10] MEDS: IBUPROFEN 600MG TAB PO PRN (16:16)
[2020-10-10 16:44] VITALS: BP 102/70
[2020-10-10] MEDS: ARIPiprazole 10 MG TAB PO SCH (20:07)
[2020-10-11] MEDS: NICOTINE POLACRILEX 2 MG GUM PO PRN ×7 (06:02→19:58)
[2020-10-11 06:21] VITALS: BP 124/61
[2020-10-11] MEDS: GABAPENTIN 300 MG CAP PO SCH ×3 (07:56→20:00)
[2020-10-11] MEDS: BENZTROPINE 0.5 MG TAB PO SCH ×2 (07:57→20:00)
[2020-10-11] MEDS: CYANOCOBALAMIN 500 MCG TAB PO SCH (07:58)
[2020-10-11] MEDS: ASCORBIC ACID 250 MG TAB PO SCH (07:59)
[2020-10-11] MEDS: PYRIDOXINE 50 MG TAB PO SCH (07:59)
[2020-10-11] MEDS: BETAMETHASONE DIP 0.05% OINT 15 GM TOP SCH (07:59)
--- NOTE | 2020-10-11 09:28 | MHIPNPDOC ---
[facility] Progress Note Progress Note DATE OF SERVICE: 10/11/20 HISTORY: The patient is met with today, reports no major problems, reports feeling down at times but his excited about Lou at times. Isolative and generally unengaged has very little to talk about today. Reports some dizziness, however he is unable to describe it at length, he reports some difficulties at times but this is relatively new, patient reports that he dispensed at this morning. VITAL SIGNS: See below. NEW TEST RESULTS: None. CURRENT MEDICATIONS: See below. MENTAL STATUS EXAMINATION: General : hygiene fair Speech: [Spontaneous and fluid] Thought processes: tangential Thought content: Guarded Abstract reasoning, and computation: Mildly impaired Description of associations: Loose Description of abnormal or psychotic thoughts: Denies any suicidal/homicidal ideation, denies auditory or visual hallucinations Judgment: Fair Insight: Poor Orientation: [Alert and orientated 3] Recent and remote memory: [Intact] Attention span and concentration: [Intact] Fund of knowledge: [Adequate] Mood: "Fine" Affect: flat, little reactivity DIAGNOSES: 1. Schizoaffective disorder bipolar type, most recent episode depressed 2. Tobacco use disorder. ASSESSMENT: Continue with referral for long-term, dizziness may be more product of dehydration then medication as he has not had any significant medication changes and some time, will monitor and if continues and will add or change any medications to reduce dizziness MANAGEMENT PLAN: Continue to Haldol 10 mg TID,Cogentin to continue to prevent EPS and Abilify 10 mg QHS TIME SPENT: 15 minutes. Vital Signs Vital Signs Date Time Temp Pulse Resp B/P (MAP) Pulse Ox O2 Delivery O2 Flow Rate FiO2 10/11/20 06:21 97.6 72 20 124/61 (82) 96 Room Air Current Medications Current Medications Medications (Trade) Dose Ordered Sig/Jovany Route PRN Reason Start Time Stop Time Status Last Admin Dose Admin Acetaminophen (Tylenol Tab) 650 mg Q6HP PRN PO HEADACHE or DISCOMFORT 08/21/20 18:00 09/28/20 20:45 DC 09/18/20 16:10 Al Hydrox/Mg Hydrox/Simethicone (Mylanta) 30 ml Q4HP PRN PO HEARTBURN/INDIGESTION 08/21/20 18:00 10/05/20 01:48 Aripiprazole (AbiLIFY) 5 mg QHS PO 09/19/20 21:00 09/27/20 14:26 DC 09/26/20 20:33 Aripiprazole (AbiLIFY) 10 mg QHS PO 09/27/20 21:00 10/10/20 20:07 Ascorbic Acid (Vitamin C) 250 mg DAILY PO 08/22/20 09:00 10/09/20 07:55 Benztropine Mesylate (Cogentin) 0.5 mg BID PO 08/21/20 21:00 10/11/20 07:57 Betamethasone Dipropionate (Diprosone) apply daily to effec... DAILY TOP 09/12/20 09:00 10/05/20 08:01 Cetirizine HCl (ZyrTEC) 5 mg QHS PO 10/07/20 02:15 10/07/20 03:47 DC Cyanocobalamin (Vitamin B12) 1,000 mcg DAILY PO 08/22/20 09:00 10/09/20 07:56 Gabapentin (Neurontin) 300 mg TID PO 09/02/20 16:00 10/11/20 07:56 Haloperidol (Haldol) 5 mg Q4HP PRN PO AGITATION 08/23/20 15:30 10/09/20 10:50 Haloperidol (Haldol) 10 mg BID PO 08/21/20 21:00 09/15/20 10:36 DC 09/15/20 08:07 Haloperidol (Haldol) 10 mg BID PO 09/16/20 21:00 09/21/20 18:58 DC 09/21/20 07:59 Haloperidol (Haldol) 10 mg TID PO 09/21/20 21:00 10/11/20 07:56 Home Med (Med Rec Complete!) ASDIRECTED XX 08/21/20 17:00 08/21/20 16:56 DC Ibuprofen (Advil) 600 mg Q6HP PRN PO pain/discomfort 09/28/20 20:45 10/10/20 16:16 Magnesium Hydroxide (Milk Of Magnesia) 30 ml DAILYPRN PRN PO CONSTIPATION 08/21/20 18:00 09/11/20 17:17 Nicotine (Nicorette) 2 mg Q2HP PRN PO NICOTINE WITHDRAWAL 10/08/20 18:45 10/11/20 07:56 Nicotine (Nicorette) 2 mg Q4HP PRN PO NICOTINE WITHDRAWAL 08/22/20 08:00 10/08/20 18:41 DC 10/08/20 14:40 Olanzapine (ZyPREXA ZYDIS) 5 mg Q6HP PRN PO AGITATION 08/21/20 18:00 Cancel Ondansetron HCl (Zofran Odt) 2 mg Q8HP PRN PO NAUSEA OR VOMITING 10/07/20 02:15 10/07/20 03:49 DC Pyridoxine HCl (Vitamin B6) 50 mg DAILY PO 08/22/20 09:00 10/09/20 07:56 Sertraline HCl (Zoloft) 25 mg DAILY PO 09/12/20 09:00 09/15/20 10:36 DC 09/12/20 07:52 Trazodone HCl (Desyrel) 50 mg QHSP PRN PO INSOMNIA 08/21/20 18:00 09/28/20 20:37 Allergies Coded Allergies: Phenothiazines (Verified Allergy, Unknown, 06/26/20) fluphenazine (Verified Allergy, Unknown, 06/26/20) lithium (Verified Allergy, Unknown, 06/26/20) loxapine (Verified Allergy, Unknown, 06/26/20) meperidine (Verified Allergy, Unknown, 06/26/20) thioridazine (Verified Allergy, Unknown, 06/26/20) thiothixene (Verified Allergy, Unknown, 06/26/20) nicotine (Verified Adverse Reaction, Unknown, 08/01/20) Pt chews on transdermal patches, please do not give. HEATHER PRAJAPATI DO Oct 11, 2020 09:28
[2020-10-11 16:29] VITALS: BP 133/77
[2020-10-11] MEDS: ARIPiprazole 10 MG TAB PO SCH (20:00)
[2020-10-11] MEDS: IBUPROFEN 600MG TAB PO PRN (20:54)
[2020-10-12] MEDS: NICOTINE POLACRILEX 2 MG GUM PO PRN ×8 (06:34→22:00)
[2020-10-12] MEDS: GABAPENTIN 300 MG CAP PO SCH ×3 (07:57→20:00)
[2020-10-12] MEDS: BENZTROPINE 0.5 MG TAB PO SCH ×2 (07:57→20:00)
[2020-10-12] MEDS: BETAMETHASONE DIP 0.05% OINT 15 GM TOP SCH (08:35)
[2020-10-12] MEDS: PYRIDOXINE 50 MG TAB PO SCH (08:35)
[2020-10-12] MEDS: ASCORBIC ACID 250 MG TAB PO SCH (08:35)
[2020-10-12] MEDS: CYANOCOBALAMIN 500 MCG TAB PO SCH (08:35)
--- NOTE | 2020-10-12 10:37 | MHIPNPDOC ---
[facility] Progress Note Progress Note DATE OF SERVICE: 10/12/20 HISTORY: The patient is met with today, reports he has no major problems with sleeping and generally awake and oriented answer a few questions and little else to say. Did not include any side effects from his medications today. VITAL SIGNS: See below. NEW TEST RESULTS: None. CURRENT MEDICATIONS: See below. MENTAL STATUS EXAMINATION: General : hygiene fair Speech: [Spontaneous and fluid] Thought processes: tangential Thought content: Guarded Abstract reasoning, and computation: Mildly impaired Description of associations: Loose Description of abnormal or psychotic thoughts: Denies any suicidal/homicidal ideation, denies auditory or visual hallucinations Judgment: Fair Insight: Poor Orientation: [Alert and orientated 3] Recent and remote memory: [Intact] Attention span and concentration: [Intact] Fund of knowledge: [Adequate] Mood: "Fine" Affect: flat, little reactivity DIAGNOSES: 1. Schizoaffective disorder bipolar type, most recent episode depressed 2. Tobacco use disorder. ASSESSMENT: Patient not leading to any dizziness today, likely product of dehydration will continue to monitor excepted to [facility] psychiatric MANAGEMENT PLAN: Continue to Haldol 10 mg TID,Cogentin to continue to prevent EPS and Abilify 10 mg QHS TIME SPENT: 15 minutes. Vital Signs Vital Signs Date Time Temp Pulse Resp B/P (MAP) Pulse Ox O2 Delivery O2 Flow Rate FiO2 10/11/20 16:29 98.6 72 16 133/77 (95) 99 Room Air Current Medications Current Medications Medications (Trade) Dose Ordered Sig/Jovany Route PRN Reason Start Time Stop Time Status Last Admin Dose Admin Acetaminophen (Tylenol Tab) 650 mg Q6HP PRN PO HEADACHE or DISCOMFORT 08/21/20 18:00 09/28/20 20:45 DC 09/18/20 16:10 Al Hydrox/Mg Hydrox/Simethicone (Mylanta) 30 ml Q4HP PRN PO HEARTBURN/INDIGESTION 08/21/20 18:00 10/05/20 01:48 Aripiprazole (AbiLIFY) 5 mg QHS PO 09/19/20 21:00 09/27/20 14:26 DC 09/26/20 20:33 Aripiprazole (AbiLIFY) 10 mg QHS PO 09/27/20 21:00 10/11/20 20:00 Ascorbic Acid (Vitamin C) 250 mg DAILY PO 08/22/20 09:00 10/09/20 07:55 Benztropine Mesylate (Cogentin) 0.5 mg BID PO 08/21/20 21:00 10/12/20 07:57 Betamethasone Dipropionate (Diprosone) apply daily to effec... DAILY TOP 09/12/20 09:00 10/05/20 08:01 Cetirizine HCl (ZyrTEC) 5 mg QHS PO 10/07/20 02:15 10/07/20 03:47 DC Cyanocobalamin (Vitamin B12) 1,000 mcg DAILY PO 08/22/20 09:00 10/09/20 07:56 Gabapentin (Neurontin) 300 mg TID PO 09/02/20 16:00 10/12/20 07:57 Haloperidol (Haldol) 5 mg Q4HP PRN PO AGITATION 08/23/20 15:30 10/09/20 10:50 Haloperidol (Haldol) 10 mg BID PO 08/21/20 21:00 09/15/20 10:36 DC 09/15/20 08:07 Haloperidol (Haldol) 10 mg BID PO 09/16/20 21:00 09/21/20 18:58 DC 09/21/20 07:59 Haloperidol (Haldol) 10 mg TID PO 09/21/20 21:00 10/12/20 07:58 Home Med (Med Rec Complete!) ASDIRECTED XX 08/21/20 17:00 08/21/20 16:56 DC Ibuprofen (Advil) 600 mg Q6HP PRN PO pain/discomfort 09/28/20 20:45 10/11/20 20:54 Magnesium Hydroxide (Milk Of Magnesia) 30 ml DAILYPRN PRN PO CONSTIPATION 08/21/20 18:00 09/11/20 17:17 Nicotine (Nicorette) 2 mg Q2HP PRN PO NICOTINE WITHDRAWAL 10/08/20 18:45 10/12/20 10:12 Nicotine (Nicorette) 2 mg Q4HP PRN PO NICOTINE WITHDRAWAL 08/22/20 08:00 10/08/20 18:41 DC 10/08/20 14:40 Olanzapine (ZyPREXA ZYDIS) 5 mg Q6HP PRN PO AGITATION 08/21/20 18:00 Cancel Ondansetron HCl (Zofran Odt) 2 mg Q8HP PRN PO NAUSEA OR VOMITING 10/07/20 02:15 10/07/20 03:49 DC Pyridoxine HCl (Vitamin B6) 50 mg DAILY PO 08/22/20 09:00 10/09/20 07:56 Sertraline HCl (Zoloft) 25 mg DAILY PO 09/12/20 09:00 09/15/20 10:36 DC 09/12/20 07:52 Trazodone HCl (Desyrel) 50 mg QHSP PRN PO INSOMNIA 08/21/20 18:00 09/28/20 20:37 Allergies Coded Allergies: Phenothiazines (Verified Allergy, Unknown, 06/26/20) fluphenazine (Verified Allergy, Unknown, 06/26/20) lithium (Verified Allergy, Unknown, 06/26/20) loxapine (Verified Allergy, Unknown, 06/26/20) meperidine (Verified Allergy, Unknown, 06/26/20) thioridazine (Verified Allergy, Unknown, 06/26/20) thiothixene (Verified Allergy, Unknown, 06/26/20) nicotine (Verified Adverse Reaction, Unknown, 08/01/20) Pt chews on transdermal patches, please do not give. HEATHER PRAJAPATI DO Oct 12, 2020 10:37
[2020-10-12 16:53] VITALS: BP 119/75
[2020-10-12] MEDS: haloperidoL 5 MG TAB PO PRN (18:28)
[2020-10-12] MEDS: ARIPiprazole 10 MG TAB PO SCH (20:00)
[2020-10-13] MEDS: NICOTINE POLACRILEX 2 MG GUM PO PRN ×8 (03:31→20:31)
[2020-10-13] MEDS: haloperidoL 5 MG TAB PO PRN (04:24)
[2020-10-13 06:16] VITALS: BP 115/58
[2020-10-13] MEDS: GABAPENTIN 300 MG CAP PO SCH ×3 (08:03→20:05)
[2020-10-13] MEDS: BENZTROPINE 0.5 MG TAB PO SCH ×2 (08:03→20:05)
[2020-10-13] MEDS: CYANOCOBALAMIN 500 MCG TAB PO SCH (08:04)
[2020-10-13] MEDS: ASCORBIC ACID 250 MG TAB PO SCH (08:04)
[2020-10-13] MEDS: PYRIDOXINE 50 MG TAB PO SCH (08:04)
[2020-10-13] MEDS: BETAMETHASONE DIP 0.05% OINT 15 GM TOP SCH (08:04)
[2020-10-13] MEDS: IBUPROFEN 600MG TAB PO PRN (13:34)
[2020-10-13 16:55] VITALS: BP 125/74
[2020-10-13] MEDS: ARIPiprazole 10 MG TAB PO SCH (20:06)
[2020-10-14] MEDS: NICOTINE POLACRILEX 2 MG GUM PO PRN ×8 (06:22→23:13)
[2020-10-14] MEDS: ASCORBIC ACID 250 MG TAB PO SCH (08:09)
[2020-10-14] MEDS: PYRIDOXINE 50 MG TAB PO SCH (08:09)
[2020-10-14] MEDS: GABAPENTIN 300 MG CAP PO SCH ×3 (08:09→20:01)
[2020-10-14] MEDS: CYANOCOBALAMIN 500 MCG TAB PO SCH (08:09)
[2020-10-14] MEDS: BETAMETHASONE DIP 0.05% OINT 15 GM TOP SCH (08:09)
[2020-10-14] MEDS: BENZTROPINE 0.5 MG TAB PO SCH ×2 (08:09→20:01)
[2020-10-14] MEDS: ARIPiprazole 10 MG TAB PO SCH (20:01)
[2020-10-15] MEDS: haloperidoL 5 MG TAB PO PRN (00:19)
[2020-10-15] MEDS: NICOTINE POLACRILEX 2 MG GUM PO PRN ×8 (05:25→20:36)
[2020-10-15 06:32] VITALS: BP 124/75
[2020-10-15] MEDS: GABAPENTIN 300 MG CAP PO SCH ×3 (08:29→20:06)
[2020-10-15] MEDS: ASCORBIC ACID 250 MG TAB PO SCH (08:29)
[2020-10-15] MEDS: PYRIDOXINE 50 MG TAB PO SCH (08:29)
[2020-10-15] MEDS: CYANOCOBALAMIN 500 MCG TAB PO SCH (08:30)
[2020-10-15] MEDS: BENZTROPINE 0.5 MG TAB PO SCH ×2 (08:30→20:06)
[2020-10-15] MEDS: BETAMETHASONE DIP 0.05% OINT 15 GM TOP SCH (08:33)
[2020-10-15 14:52] VITALS: BP 102/72
[2020-10-15] MEDS: ARIPiprazole 10 MG TAB PO SCH (20:07)
[2020-10-16] MEDS: NICOTINE POLACRILEX 2 MG GUM PO PRN ×9 (05:20→22:41)
[2020-10-16] MEDS: haloperidoL 5 MG TAB PO PRN (06:46)
[2020-10-16 07:00] VITALS: BP 124/75
[2020-10-16] MEDS: BENZTROPINE 0.5 MG TAB PO SCH ×2 (08:00→20:18)
[2020-10-16] MEDS: GABAPENTIN 300 MG CAP PO SCH ×3 (08:00→20:18)
[2020-10-16] MEDS: PYRIDOXINE 50 MG TAB PO SCH (08:01)
[2020-10-16] MEDS: CYANOCOBALAMIN 500 MCG TAB PO SCH (08:01)
[2020-10-16] MEDS: ASCORBIC ACID 250 MG TAB PO SCH (08:01)
[2020-10-16] MEDS: BETAMETHASONE DIP 0.05% OINT 15 GM TOP SCH (08:01)
[2020-10-16] MEDS: MOM 30ML SUSPENSION UDC PO PRN (10:18)
--- NOTE | 2020-10-16 10:23 | MHIPNPDOC ---
[facility] Progress Note Progress Note DATE OF SERVICE: 10/16/20 HISTORY: The patient is met with today, he reports he is feeling drug medication without any side effects, denies having any further dizziness and otherwise has been minimally interactive. He describes that he is open to going to [facility] and has been accepted there, he reports that he is not clear whether he wants to return but overall feels supported on the unit, he reports that things are calm down and he appears to be mildly more engaged although overall dysthymic and depressed, he is very insistent about not taking any antidepressants. VITAL SIGNS: See below. NEW TEST RESULTS: None. CURRENT MEDICATIONS: See below. MENTAL STATUS EXAMINATION: General : hygiene fair Speech: [Spontaneous and fluid] Thought processes: tangential Thought content: Guarded Abstract reasoning, and computation: Mildly impaired Description of associations: Loose Description of abnormal or psychotic thoughts: Denies any suicidal/homicidal ideation, denies auditory or visual hallucinations Judgment: Fair Insight: Poor Orientation: [Alert and orientated 3] Recent and remote memory: [Intact] Attention span and concentration: [Intact] Fund of knowledge: [Adequate] Mood: "Fine" Affect: flat, little reactivity DIAGNOSES: 1. Schizoaffective disorder bipolar type, most recent episode depressed 2. Tobacco use disorder. ASSESSMENT: Dizziness was unlikely related to medications as there was no changes to medications and it had gone away, will continue with transferred [facility] hopefully shortly with medications continued, he does have some specificity to his medication regimen and will generally not open to most changes MANAGEMENT PLAN: Continue to Haldol 10 mg TID,Cogentin to continue to prevent EPS and Abilify 10 mg QHS TIME SPENT: 15 minutes. Vital Signs Vital Signs Date Time Temp Pulse Resp B/P (MAP) Pulse Ox O2 Delivery O2 Flow Rate FiO2 10/16/20 07:00 97.2 64 16 124/75 (91) 97 Room Air Current Medications Current Medications Medications (Trade) Dose Ordered Sig/Jovany Route PRN Reason Start Time Stop Time Status Last Admin Dose Admin Acetaminophen (Tylenol Tab) 650 mg Q6HP PRN PO HEADACHE or DISCOMFORT 08/21/20 18:00 09/28/20 20:45 DC 09/18/20 16:10 Al Hydrox/Mg Hydrox/Simethicone (Mylanta) 30 ml Q4HP PRN PO HEARTBURN/INDIGESTION 08/21/20 18:00 10/05/20 01:48 Aripiprazole (AbiLIFY) 5 mg QHS PO 09/19/20 21:00 09/27/20 14:26 DC 09/26/20 20:33 Aripiprazole (AbiLIFY) 10 mg QHS PO 09/27/20 21:00 10/15/20 20:07 Ascorbic Acid (Vitamin C) 250 mg DAILY PO 08/22/20 09:00 10/15/20 08:29 Benztropine Mesylate (Cogentin) 0.5 mg BID PO 08/21/20 21:00 10/16/20 08:00 Betamethasone Dipropionate (Diprosone) apply daily to effec... DAILY TOP 09/12/20 09:00 10/15/20 08:33 Cetirizine HCl (ZyrTEC) 5 mg QHS PO 10/07/20 02:15 10/07/20 03:47 DC Cyanocobalamin (Vitamin B12) 1,000 mcg DAILY PO 08/22/20 09:00 10/15/20 08:30 Gabapentin (Neurontin) 300 mg TID PO 09/02/20 16:00 10/16/20 08:00 Haloperidol (Haldol) 5 mg Q4HP PRN PO AGITATION 08/23/20 15:30 10/16/20 06:46 Haloperidol (Haldol) 10 mg BID PO 08/21/20 21:00 09/15/20 10:36 DC 09/15/20 08:07 Haloperidol (Haldol) 10 mg BID PO 09/16/20 21:00 09/21/20 18:58 DC 09/21/20 07:59 Haloperidol (Haldol) 10 mg TID PO 09/21/20 21:00 10/16/20 08:00 Home Med (Med Rec Complete!) ASDIRECTED XX 08/21/20 17:00 08/21/20 16:56 DC Ibuprofen (Advil) 600 mg Q6HP PRN PO pain/discomfort 09/28/20 20:45 10/13/20 13:34 Magnesium Hydroxide (Milk Of Magnesia) 30 ml DAILYPRN PRN PO CONSTIPATION 08/21/20 18:00 10/16/20 10:18 Nicotine (Nicorette) 2 mg Q2HP PRN PO NICOTINE WITHDRAWAL 10/08/20 18:45 10/16/20 09:31 Nicotine (Nicorette) 2 mg Q4HP PRN PO NICOTINE WITHDRAWAL 08/22/20 08:00 10/08/20 18:41 DC 10/08/20 14:40 Olanzapine (ZyPREXA ZYDIS) 5 mg Q6HP PRN PO AGITATION 08/21/20 18:00 Cancel Ondansetron HCl (Zofran Odt) 2 mg Q8HP PRN PO NAUSEA OR VOMITING 10/07/20 02:15 10/07/20 03:49 DC Pyridoxine HCl (Vitamin B6) 50 mg DAILY PO 08/22/20 09:00 10/15/20 08:29 Sertraline HCl (Zoloft) 25 mg DAILY PO 09/12/20 09:00 09/15/20 10:36 DC 09/12/20 07:52 Trazodone HCl (Desyrel) 50 mg QHSP PRN PO INSOMNIA 08/21/20 18:00 09/28/20 20:37 Allergies Coded Allergies: Phenothiazines (Verified Allergy, Unknown, 06/26/20) fluphenazine (Verified Allergy, Unknown, 06/26/20) lithium (Verified Allergy, Unknown, 06/26/20) loxapine (Verified Allergy, Unknown, 06/26/20) meperidine (Verified Allergy, Unknown, 06/26/20) thioridazine (Verified Allergy, Unknown, 06/26/20) thiothixene (Verified Allergy, Unknown, 06/26/20) nicotine (Verified Adverse Reaction, Unknown, 08/01/20) Pt chews on transdermal patches, please do not give. HEATHER PRAJAPATI DO Oct 16, 2020 10:24
[2020-10-16 18:04] VITALS: BP 124/81
[2020-10-16] MEDS: ARIPiprazole 10 MG TAB PO SCH (20:18)
[2020-10-17] MEDS: NICOTINE POLACRILEX 2 MG GUM PO PRN ×7 (06:31→22:30)
[2020-10-17] MEDS: GABAPENTIN 300 MG CAP PO SCH ×3 (08:12→20:24)
[2020-10-17] MEDS: BENZTROPINE 0.5 MG TAB PO SCH ×2 (08:12→20:24)
[2020-10-17] MEDS: CYANOCOBALAMIN 500 MCG TAB PO SCH (08:34)
[2020-10-17] MEDS: ASCORBIC ACID 250 MG TAB PO SCH (08:34)
[2020-10-17] MEDS: BETAMETHASONE DIP 0.05% OINT 15 GM TOP SCH (08:34)
[2020-10-17] MEDS: PYRIDOXINE 50 MG TAB PO SCH (08:34)
--- NOTE | 2020-10-17 10:28 | MHIPNPDOC ---
[facility] Progress Note Progress Note DATE OF SERVICE: 10/17/20 HISTORY: The patient is met with today, he is sleeping and doesn't what to engage much today, but reports that he has "no problems" and that he is "fantastic", he still dysthymic and constricted somewhat but otherwise doesn't engage much during the discussion. He is out in the milieu from time to time but doesn't aches significant engagement with other patients. VITAL SIGNS: See below. NEW TEST RESULTS: None. CURRENT MEDICATIONS: See below. MENTAL STATUS EXAMINATION: General : hygiene fair Speech: Spontaneous and fluid Thought processes: tangential Thought content: Guarded Abstract reasoning, and computation: Mildly impaired Description of associations: Loose Description of abnormal or psychotic thoughts: Denies any suicidal/homicidal ideation, denies auditory or visual hallucinations Judgment: Fair Insight: Poor Orientation: Alert and orientated 3 Recent and remote memory: Intact Attention span and concentration: Intact Fund of knowledge: Adequate Mood: "Fine" Affect: flat, little reactivity DIAGNOSES: 1. Schizoaffective disorder bipolar type, most recent episode depressed 2. Tobacco use disorder. ASSESSMENT: We'll continue with referral for long-term treatment he will hopefully be transferred [facility] MANAGEMENT PLAN: Continue to Haldol 10 mg TID,Cogentin to continue to prevent EPS and Abilify 10 mg QHS TIME SPENT: 15 minutes. Vital Signs Vital Signs Date Time Temp Pulse Resp B/P (MAP) Pulse Ox O2 Delivery O2 Flow Rate FiO2 10/16/20 18:04 97.4 88 16 124/81 (95) 98 10/16/20 07:00 Room Air Current Medications Current Medications Medications (Trade) Dose Ordered Sig/Jovany Route PRN Reason Start Time Stop Time Status Last Admin Dose Admin Acetaminophen (Tylenol Tab) 650 mg Q6HP PRN PO HEADACHE or DISCOMFORT 08/21/20 18:00 09/28/20 20:45 DC 09/18/20 16:10 Al Hydrox/Mg Hydrox/Simethicone (Mylanta) 30 ml Q4HP PRN PO HEARTBURN/INDIGESTION 08/21/20 18:00 10/05/20 01:48 Aripiprazole (AbiLIFY) 5 mg QHS PO 09/19/20 21:00 09/27/20 14:26 DC 09/26/20 20:33 Aripiprazole (AbiLIFY) 10 mg QHS PO 09/27/20 21:00 10/16/20 20:18 Ascorbic Acid (Vitamin C) 250 mg DAILY PO 08/22/20 09:00 10/15/20 08:29 Benztropine Mesylate (Cogentin) 0.5 mg BID PO 08/21/20 21:00 10/17/20 08:12 Betamethasone Dipropionate (Diprosone) apply daily to effec... DAILY TOP 09/12/20 09:00 10/15/20 08:33 Cetirizine HCl (ZyrTEC) 5 mg QHS PO 10/07/20 02:15 10/07/20 03:47 DC Cyanocobalamin (Vitamin B12) 1,000 mcg DAILY PO 08/22/20 09:00 10/15/20 08:30 Gabapentin (Neurontin) 300 mg TID PO 09/02/20 16:00 10/17/20 08:12 Haloperidol (Haldol) 5 mg Q4HP PRN PO AGITATION 08/23/20 15:30 10/16/20 06:46 Haloperidol (Haldol) 10 mg BID PO 08/21/20 21:00 09/15/20 10:36 DC 09/15/20 08:07 Haloperidol (Haldol) 10 mg BID PO 09/16/20 21:00 09/21/20 18:58 DC 09/21/20 07:59 Haloperidol (Haldol) 10 mg TID PO 09/21/20 21:00 10/17/20 08:12 Home Med (Med Rec Complete!) ASDIRECTED XX 08/21/20 17:00 08/21/20 16:56 DC Ibuprofen (Advil) 600 mg Q6HP PRN PO pain/discomfort 09/28/20 20:45 10/13/20 13:34 Magnesium Hydroxide (Milk Of Magnesia) 30 ml DAILYPRN PRN PO CONSTIPATION 08/21/20 18:00 10/16/20 10:18 Nicotine (Nicorette) 2 mg Q2HP PRN PO NICOTINE WITHDRAWAL 10/08/20 18:45 10/17/20 08:31 Nicotine (Nicorette) 2 mg Q4HP PRN PO NICOTINE WITHDRAWAL 08/22/20 08:00 10/08/20 18:41 DC 10/08/20 14:40 Olanzapine (ZyPREXA ZYDIS) 5 mg Q6HP PRN PO AGITATION 08/21/20 18:00 Cancel Ondansetron HCl (Zofran Odt) 2 mg Q8HP PRN PO NAUSEA OR VOMITING 10/07/20 02:15 10/07/20 03:49 DC Pyridoxine HCl (Vitamin B6) 50 mg DAILY PO 08/22/20 09:00 10/15/20 08:29 Sertraline HCl (Zoloft) 25 mg DAILY PO 09/12/20 09:00 09/15/20 10:36 DC 09/12/20 07:52 Trazodone HCl (Desyrel) 50 mg QHSP PRN PO INSOMNIA 08/21/20 18:00 09/28/20 20:37 Allergies Coded Allergies: Phenothiazines (Verified Allergy, Unknown, 06/26/20) fluphenazine (Verified Allergy, Unknown, 06/26/20) lithium (Verified Allergy, Unknown, 06/26/20) loxapine (Verified Allergy, Unknown, 06/26/20) meperidine (Verified Allergy, Unknown, 06/26/20) thioridazine (Verified Allergy, Unknown, 06/26/20) thiothixene (Verified Allergy, Unknown, 06/26/20) nicotine (Verified Adverse Reaction, Unknown, 08/01/20) Pt chews on transdermal patches, please do not give. HEATHER PRAJAPATI DO Oct 17, 2020 10:28
[2020-10-17] MEDS: ARIPiprazole 10 MG TAB PO SCH (20:24)
[2020-10-18] MEDS: NICOTINE POLACRILEX 2 MG GUM PO PRN ×8 (05:04→22:31)
[2020-10-18] MEDS: GABAPENTIN 300 MG CAP PO SCH ×3 (08:02→20:21)
[2020-10-18] MEDS: BENZTROPINE 0.5 MG TAB PO SCH ×2 (08:02→20:21)
[2020-10-18] MEDS: CYANOCOBALAMIN 500 MCG TAB PO SCH (08:03)
[2020-10-18] MEDS: PYRIDOXINE 50 MG TAB PO SCH (08:04)
[2020-10-18] MEDS: BETAMETHASONE DIP 0.05% OINT 15 GM TOP SCH (08:04)
[2020-10-18] MEDS: ASCORBIC ACID 250 MG TAB PO SCH (08:04)
[2020-10-18] MEDS: IBUPROFEN 600MG TAB PO PRN (09:02)
--- NOTE | 2020-10-18 11:35 | MHIPNPDOC ---
[facility] Progress Note Progress Note DATE OF SERVICE: 10/18/20 HISTORY: The patient is met with today, he is sleeping but generally has no complaints, is still dysthymic and constricted but is open to going to [facility], he served with the six-month retention which she has no issue with. He describes has no problems and doesn't engage much during the interview sleeping today. VITAL SIGNS: See below. NEW TEST RESULTS: None. CURRENT MEDICATIONS: See below. MENTAL STATUS EXAMINATION: General : hygiene fair Speech: Spontaneous and fluid Thought processes: tangential Thought content: Guarded Abstract reasoning, and computation: Mildly impaired Description of associations: Loose Description of abnormal or psychotic thoughts: Denies any suicidal/homicidal ideation, denies auditory or visual hallucinations Judgment: Fair Insight: Poor Orientation: Alert and orientated 3 Recent and remote memory: Intact Attention span and concentration: Intact Fund of knowledge: Adequate Mood: "Fine" Affect: flat, little reactivity DIAGNOSES: 1. Schizoaffective disorder bipolar type, most recent episode depressed 2. Tobacco use disorder. ASSESSMENT: We'll continue with referral for long-term treatment he will hopefully be transferred [facility] MANAGEMENT PLAN: Continue to Haldol 10 mg TID,Cogentin to continue to prevent EPS and Abilify 10 mg QHS TIME SPENT: 15 minutes. Vital Signs Vital Signs Date Time Temp Pulse Resp B/P (MAP) Pulse Ox O2 Delivery O2 Flow Rate FiO2 10/16/20 18:04 97.4 88 16 124/81 (95) 98 10/16/20 07:00 Room Air Current Medications Current Medications Medications (Trade) Dose Ordered Sig/Jovany Route PRN Reason Start Time Stop Time Status Last Admin Dose Admin Acetaminophen (Tylenol Tab) 650 mg Q6HP PRN PO HEADACHE or DISCOMFORT 08/21/20 18:00 09/28/20 20:45 DC 09/18/20 16:10 Al Hydrox/Mg Hydrox/Simethicone (Mylanta) 30 ml Q4HP PRN PO HEARTBURN/INDIGESTION 08/21/20 18:00 10/05/20 01:48 Aripiprazole (AbiLIFY) 5 mg QHS PO 09/19/20 21:00 09/27/20 14:26 DC 09/26/20 20:33 Aripiprazole (AbiLIFY) 10 mg QHS PO 09/27/20 21:00 10/17/20 20:24 Ascorbic Acid (Vitamin C) 250 mg DAILY PO 08/22/20 09:00 10/15/20 08:29 Benztropine Mesylate (Cogentin) 0.5 mg BID PO 08/21/20 21:00 10/18/20 08:02 Betamethasone Dipropionate (Diprosone) apply daily to effec... DAILY TOP 09/12/20 09:00 10/15/20 08:33 Cetirizine HCl (ZyrTEC) 5 mg QHS PO 10/07/20 02:15 10/07/20 03:47 DC Cyanocobalamin (Vitamin B12) 1,000 mcg DAILY PO 08/22/20 09:00 10/15/20 08:30 Gabapentin (Neurontin) 300 mg TID PO 09/02/20 16:00 10/18/20 08:02 Haloperidol (Haldol) 5 mg Q4HP PRN PO AGITATION 08/23/20 15:30 10/16/20 06:46 Haloperidol (Haldol) 10 mg BID PO 08/21/20 21:00 09/15/20 10:36 DC 09/15/20 08:07 Haloperidol (Haldol) 10 mg BID PO 09/16/20 21:00 09/21/20 18:58 DC 09/21/20 07:59 Haloperidol (Haldol) 10 mg TID PO 09/21/20 21:00 10/18/20 08:02 Home Med (Med Rec Complete!) ASDIRECTED XX 08/21/20 17:00 08/21/20 16:56 DC Ibuprofen (Advil) 600 mg Q6HP PRN PO pain/discomfort 09/28/20 20:45 10/18/20 09:02 Magnesium Hydroxide (Milk Of Magnesia) 30 ml DAILYPRN PRN PO CONSTIPATION 08/21/20 18:00 10/16/20 10:18 Nicotine (Nicorette) 2 mg Q2HP PRN PO NICOTINE WITHDRAWAL 10/08/20 18:45 10/18/20 10:40 Nicotine (Nicorette) 2 mg Q4HP PRN PO NICOTINE WITHDRAWAL 08/22/20 08:00 10/08/20 18:41 DC 10/08/20 14:40 Olanzapine (ZyPREXA ZYDIS) 5 mg Q6HP PRN PO AGITATION 08/21/20 18:00 Cancel Ondansetron HCl (Zofran Odt) 2 mg Q8HP PRN PO NAUSEA OR VOMITING 10/07/20 02:15 10/07/20 03:49 DC Pyridoxine HCl (Vitamin B6) 50 mg DAILY PO 08/22/20 09:00 10/15/20 08:29 Sertraline HCl (Zoloft) 25 mg DAILY PO 09/12/20 09:00 09/15/20 10:36 DC 09/12/20 07:52 Trazodone HCl (Desyrel) 50 mg QHSP PRN PO INSOMNIA 08/21/20 18:00 09/28/20 20:37 Allergies Coded Allergies: Phenothiazines (Verified Allergy, Unknown, 06/26/20) fluphenazine (Verified Allergy, Unknown, 06/26/20) lithium (Verified Allergy, Unknown, 06/26/20) loxapine (Verified Allergy, Unknown, 06/26/20) meperidine (Verified Allergy, Unknown, 06/26/20) thioridazine (Verified Allergy, Unknown, 06/26/20) thiothixene (Verified Allergy, Unknown, 06/26/20) nicotine (Verified Adverse Reaction, Unknown, 08/01/20) Pt chews on transdermal patches, please do not give. HEATHER PRAJAPATI DO Oct 18, 2020 11:35
[2020-10-18 18:09] VITALS: BP 116/68
[2020-10-18] MEDS: ARIPiprazole 10 MG TAB PO SCH (21:02)
[2020-10-19] MEDS: NICOTINE POLACRILEX 2 MG GUM PO PRN ×7 (07:40→22:06)
[2020-10-19] MEDS: GABAPENTIN 300 MG CAP PO SCH ×3 (08:09→19:58)
[2020-10-19] MEDS: BENZTROPINE 0.5 MG TAB PO SCH ×2 (08:09→19:58)
[2020-10-19] MEDS: PYRIDOXINE 50 MG TAB PO SCH (09:00)
[2020-10-19] MEDS: CYANOCOBALAMIN 500 MCG TAB PO SCH (09:00)
[2020-10-19] MEDS: BETAMETHASONE DIP 0.05% OINT 15 GM TOP SCH (09:00)
[2020-10-19] MEDS: ASCORBIC ACID 250 MG TAB PO SCH (09:00)
--- NOTE | 2020-10-19 10:58 | MHIPNPDOC ---
[facility] Progress Note Progress Note DATE OF SERVICE: 10/19/20 HISTORY: The patient has met with today, reports that he is doing well and otherwise has no complaints. He still quite depressed and sleeping the majority of the day, he is isolative to his room when asked specifically he reports that he sleeps, eats and does not engage much else, as there is "nothing to do". He reports the groups are on stimulating and that he is not "a 4-year-old". Otherwise he has no side effects or anything else to discuss. VITAL SIGNS: See below. NEW TEST RESULTS: None. CURRENT MEDICATIONS: See below. MENTAL STATUS EXAMINATION: General : hygiene fair Speech: Spontaneous and fluid Thought processes: Mildly circumstantial Thought content: Guarded Abstract reasoning, and computation: Mildly impaired Description of associations: Loose Description of abnormal or psychotic thoughts: Denies any suicidal/homicidal ideation, denies auditory or visual hallucinations Judgment: Fair Insight: Poor Orientation: Alert and orientated 3 Recent and remote memory: Intact Attention span and concentration: Intact Fund of knowledge: Adequate Mood: "Fine" Affect: flat, little reactivity DIAGNOSES: 1. Schizoaffective disorder bipolar type, most recent episode depressed 2. Tobacco use disorder. ASSESSMENT: We'll continue with referral for long-term treatment he will hopefully be transferred [facility] shortly MANAGEMENT PLAN: Continue to Haldol 10 mg TID,Cogentin to continue to prevent EPS and Abilify 10 mg QHS TIME SPENT: 15 minutes. Vital Signs Vital Signs Date Time Temp Pulse Resp B/P (MAP) Pulse Ox O2 Delivery O2 Flow Rate FiO2 10/18/20 18:09 98.3 110 15 116/68 (84) 95 Room Air Current Medications Current Medications Medications (Trade) Dose Ordered Sig/Jovany Route PRN Reason Start Time Stop Time Status Last Admin Dose Admin Acetaminophen (Tylenol Tab) 650 mg Q6HP PRN PO HEADACHE or DISCOMFORT 08/21/20 18:00 09/28/20 20:45 DC 09/18/20 16:10 Al Hydrox/Mg Hydrox/Simethicone (Mylanta) 30 ml Q4HP PRN PO HEARTBURN/INDIGESTION 08/21/20 18:00 10/05/20 01:48 Aripiprazole (AbiLIFY) 5 mg QHS PO 09/19/20 21:00 09/27/20 14:26 DC 09/26/20 20:33 Aripiprazole (AbiLIFY) 10 mg QHS PO 09/27/20 21:00 10/18/20 21:02 Ascorbic Acid (Vitamin C) 250 mg DAILY PO 08/22/20 09:00 10/15/20 08:29 Benztropine Mesylate (Cogentin) 0.5 mg BID PO 08/21/20 21:00 10/19/20 08:09 Betamethasone Dipropionate (Diprosone) apply daily to effec... DAILY TOP 09/12/20 09:00 10/15/20 08:33 Cetirizine HCl (ZyrTEC) 5 mg QHS PO 10/07/20 02:15 10/07/20 03:47 DC Cyanocobalamin (Vitamin B12) 1,000 mcg DAILY PO 08/22/20 09:00 10/15/20 08:30 Gabapentin (Neurontin) 300 mg TID PO 09/02/20 16:00 10/19/20 08:09 Haloperidol (Haldol) 5 mg Q4HP PRN PO AGITATION 08/23/20 15:30 10/16/20 06:46 Haloperidol (Haldol) 10 mg BID PO 08/21/20 21:00 09/15/20 10:36 DC 09/15/20 08:07 Haloperidol (Haldol) 10 mg BID PO 09/16/20 21:00 09/21/20 18:58 DC 09/21/20 07:59 Haloperidol (Haldol) 10 mg TID PO 09/21/20 21:00 10/19/20 08:10 Home Med (Med Rec Complete!) ASDIRECTED XX 08/21/20 17:00 08/21/20 16:56 DC Ibuprofen (Advil) 600 mg Q6HP PRN PO pain/discomfort 09/28/20 20:45 10/18/20 09:02 Magnesium Hydroxide (Milk Of Magnesia) 30 ml DAILYPRN PRN PO CONSTIPATION 08/21/20 18:00 10/16/20 10:18 Miscellaneous (Unresolved Clarification Entry) SEE LABEL COMMENTS DAILY XX 10/19/20 09:00 Nicotine (Nicorette) 2 mg Q2HP PRN PO NICOTINE WITHDRAWAL 10/08/20 18:45 10/19/20 09:40 Nicotine (Nicorette) 2 mg Q4HP PRN PO NICOTINE WITHDRAWAL 08/22/20 08:00 10/08/20 18:41 DC 10/08/20 14:40 Olanzapine (ZyPREXA ZYDIS) 5 mg Q6HP PRN PO AGITATION 08/21/20 18:00 Cancel Ondansetron HCl (Zofran Odt) 2 mg Q8HP PRN PO NAUSEA OR VOMITING 10/07/20 02:15 10/07/20 03:49 DC Pyridoxine HCl (Vitamin B6) 50 mg DAILY PO 08/22/20 09:00 10/15/20 08:29 Sertraline HCl (Zoloft) 25 mg DAILY PO 09/12/20 09:00 09/15/20 10:36 DC 09/12/20 07:52 Trazodone HCl (Desyrel) 50 mg QHSP PRN PO INSOMNIA 08/21/20 18:00 09/28/20 20:37 Allergies Coded Allergies: Phenothiazines (Verified Allergy, Unknown, 06/26/20) fluphenazine (Verified Allergy, Unknown, 06/26/20) lithium (Verified Allergy, Unknown, 06/26/20) loxapine (Verified Allergy, Unknown, 06/26/20) meperidine (Verified Allergy, Unknown, 06/26/20) thioridazine (Verified Allergy, Unknown, 06/26/20) thiothixene (Verified Allergy, Unknown, 06/26/20) nicotine (Verified Adverse Reaction, Unknown, 08/01/20) Pt chews on transdermal patches, please do not give. HEATHER PRAJAPATI DO Oct 19, 2020 10:58
[2020-10-19 17:30] VITALS: BP 122/75
[2020-10-19] MEDS: ARIPiprazole 10 MG TAB PO SCH (19:59)
[2020-10-20] MEDS: NICOTINE POLACRILEX 2 MG GUM PO PRN ×9 (00:05→23:27)
[2020-10-20] MEDS: BETAMETHASONE DIP 0.05% OINT 15 GM TOP SCH (09:00)
[2020-10-20] MEDS: ASCORBIC ACID 250 MG TAB PO SCH (09:00)
[2020-10-20] MEDS: PYRIDOXINE 50 MG TAB PO SCH (09:00)
[2020-10-20] MEDS: CYANOCOBALAMIN 500 MCG TAB PO SCH (09:00)
[2020-10-20] MEDS: GABAPENTIN 300 MG CAP PO SCH ×3 (09:06→20:23)
[2020-10-20] MEDS: BENZTROPINE 0.5 MG TAB PO SCH ×2 (09:06→20:23)
[2020-10-20] MEDS: ARIPiprazole 10 MG TAB PO SCH (20:24)
[2020-10-21] MEDS: NICOTINE POLACRILEX 2 MG GUM PO PRN ×8 (06:21→22:22)
[2020-10-21] MEDS: GABAPENTIN 300 MG CAP PO SCH ×3 (08:03→20:21)
[2020-10-21] MEDS: BENZTROPINE 0.5 MG TAB PO SCH ×2 (08:03→20:21)
[2020-10-21] MEDS: CYANOCOBALAMIN 500 MCG TAB PO SCH (08:43)
[2020-10-21] MEDS: BETAMETHASONE DIP 0.05% OINT 15 GM TOP SCH (08:44)
[2020-10-21] MEDS: ASCORBIC ACID 250 MG TAB PO SCH (08:44)
[2020-10-21] MEDS: PYRIDOXINE 50 MG TAB PO SCH (08:44)
[2020-10-21] MEDS: MAALOX 30 ML SUSP *UDC PO PRN (15:09)
[2020-10-21] MEDS: ARIPiprazole 10 MG TAB PO SCH (20:21)
[2020-10-21 22:13] VITALS: BP 143/57
[2020-10-22] MEDS: NICOTINE POLACRILEX 2 MG GUM PO PRN ×8 (00:28→22:29)
[2020-10-22] MEDS: GABAPENTIN 300 MG CAP PO SCH ×3 (08:58→20:20)
[2020-10-22] MEDS: BENZTROPINE 0.5 MG TAB PO SCH ×2 (08:59→20:20)
[2020-10-22] MEDS: ASCORBIC ACID 250 MG TAB PO SCH (09:00)
[2020-10-22] MEDS: BETAMETHASONE DIP 0.05% OINT 15 GM TOP SCH (09:00)
[2020-10-22] MEDS: PYRIDOXINE 50 MG TAB PO SCH (09:00)
[2020-10-22] MEDS: CYANOCOBALAMIN 500 MCG TAB PO SCH (09:00)
[2020-10-22 17:46] VITALS: BP 141/71
[2020-10-22] MEDS: ARIPiprazole 10 MG TAB PO SCH (20:20)
[2020-10-22] MEDS: MAALOX 30 ML SUSP *UDC PO PRN (22:06)
[2020-10-23] MEDS: NICOTINE POLACRILEX 2 MG GUM PO PRN ×7 (06:39→19:57)
[2020-10-23] MEDS: BENZTROPINE 0.5 MG TAB PO SCH ×2 (08:06→20:56)
[2020-10-23] MEDS: GABAPENTIN 300 MG CAP PO SCH ×3 (08:06→20:56)
[2020-10-23] MEDS: BETAMETHASONE DIP 0.05% OINT 15 GM TOP SCH (09:00)
[2020-10-23] MEDS: PYRIDOXINE 50 MG TAB PO SCH (09:00)
[2020-10-23] MEDS: ASCORBIC ACID 250 MG TAB PO SCH (09:00)
[2020-10-23] MEDS: CYANOCOBALAMIN 500 MCG TAB PO SCH (09:00)
[2020-10-23 17:56] VITALS: BP 135/79
[2020-10-23] MEDS: ARIPiprazole 10 MG TAB PO SCH (20:56)
[2020-10-24] MEDS: NICOTINE POLACRILEX 2 MG GUM PO PRN ×8 (05:10→19:37)
[2020-10-24] MEDS: CYANOCOBALAMIN 500 MCG TAB PO SCH (09:16)
[2020-10-24] MEDS: BENZTROPINE 0.5 MG TAB PO SCH ×2 (09:17→20:43)
[2020-10-24] MEDS: PYRIDOXINE 50 MG TAB PO SCH (09:17)
[2020-10-24] MEDS: GABAPENTIN 300 MG CAP PO SCH ×3 (09:17→20:43)
[2020-10-24] MEDS: BETAMETHASONE DIP 0.05% OINT 15 GM TOP SCH (09:19)
[2020-10-24] MEDS: ASCORBIC ACID 250 MG TAB PO SCH (09:19)
[2020-10-24 15:45] VITALS: BP 110/69
[2020-10-24] MEDS: ARIPiprazole 10 MG TAB PO SCH (20:43)
[2020-10-25] MEDS: NICOTINE POLACRILEX 2 MG GUM PO PRN ×5 (06:29→21:58)
[2020-10-25] MEDS: GABAPENTIN 300 MG CAP PO SCH ×3 (08:43→21:57)
[2020-10-25] MEDS: BENZTROPINE 0.5 MG TAB PO SCH ×2 (08:43→21:57)
[2020-10-25] MEDS: CYANOCOBALAMIN 500 MCG TAB PO SCH (08:43)
[2020-10-25] MEDS: PYRIDOXINE 50 MG TAB PO SCH (08:44)
[2020-10-25] MEDS: ASCORBIC ACID 250 MG TAB PO SCH (08:44)
[2020-10-25] MEDS: BETAMETHASONE DIP 0.05% OINT 15 GM TOP SCH (08:44)
[2020-10-25 18:40] VITALS: BP 114/62
[2020-10-25] MEDS: ARIPiprazole 10 MG TAB PO SCH (21:58)
[2020-10-26] MEDS: NICOTINE POLACRILEX 2 MG GUM PO PRN ×7 (06:19→22:24)
[2020-10-26] MEDS: GABAPENTIN 300 MG CAP PO SCH ×3 (08:11→20:06)
[2020-10-26] MEDS: BENZTROPINE 0.5 MG TAB PO SCH ×2 (08:12→20:06)
[2020-10-26] MEDS: BETAMETHASONE DIP 0.05% OINT 15 GM TOP SCH (08:31)
[2020-10-26] MEDS: PYRIDOXINE 50 MG TAB PO SCH (08:31)
[2020-10-26] MEDS: CYANOCOBALAMIN 500 MCG TAB PO SCH (08:31)
[2020-10-26] MEDS: ASCORBIC ACID 250 MG TAB PO SCH (08:31)
[2020-10-26] MEDS: MAALOX 30 ML SUSP *UDC PO PRN (15:41)
[2020-10-26 18:18] VITALS: BP 127/78
[2020-10-26] MEDS: ARIPiprazole 10 MG TAB PO SCH (20:06)
[2020-10-27] MEDS: NICOTINE POLACRILEX 2 MG GUM PO PRN ×8 (04:39→22:13)
[2020-10-27] MEDS: BENZTROPINE 0.5 MG TAB PO SCH ×2 (08:08→20:00)
[2020-10-27] MEDS: GABAPENTIN 300 MG CAP PO SCH ×3 (08:08→20:00)
[2020-10-27] MEDS: CYANOCOBALAMIN 500 MCG TAB PO SCH (09:00)
[2020-10-27] MEDS: PYRIDOXINE 50 MG TAB PO SCH (09:00)
[2020-10-27] MEDS: BETAMETHASONE DIP 0.05% OINT 15 GM TOP SCH (09:00)
[2020-10-27] MEDS: ASCORBIC ACID 250 MG TAB PO SCH (09:00)
[2020-10-27 17:50] VITALS: BP 132/74
--- NOTE | 2020-10-27 18:10 | MHIPNPDOC ---
[facility] Progress Note Progress Note Vital Signs Label Value Date Time Patient Temperature 99.0 degrees F 10/27/20 1750 Temperature Source Temporal 10/27/20 1750 Pulse 93 10/27/20 1750 Respiratory Rate 15 bpm 10/27/20 1750 Blood Pressure Assessment 132/74 (93) 10/27/20 1750 Bedside Pulse Oximetry 97 % 10/27/20 1750 Item Value Date Time Oxygen Delivery Method Room Air 10/27/20 1750 White Blood Count 12.7 10^3/uL H 08/21/20 1439 Red Blood Count 4.82 10^6/uL 08/21/20 1439 Hemoglobin 14.9 g/dl 08/21/20 1439 Hematocrit 44.7 % 08/21/20 1439 Mean Corpuscular Volume 92.7 fl 08/21/20 1439 Mean Corpuscular Hemoglobin 30.9 pg 08/21/20 1439 Mean Corpuscular Hemoglobin Concent 33.3 g/dl 08/21/20 1439 Red Cell Distribution Width 13.1 % 08/21/20 1439 Platelet Count 250 10^3/uL 08/21/20 1439 Immature Granulocyte % (Auto) 0.4 % 08/21/20 1439 Neutrophils (%) (Auto) 74.6 % H 08/21/20 1439 Lymphocytes (%) (Auto) 16.9 % L 08/21/20 1439 Monocytes (%) (Auto) 6.1 % H 08/21/20 1439 Eosinophils (%) (Auto) 1.3 % 08/21/20 1439 Basophils (%) (Auto) 0.7 % 08/21/20 1439 Neutrophils # (Auto) 9.5 10^3/uL H 08/21/20 1439 Lymphocytes # (Auto) 2.2 10^3/uL 08/21/20 1439 Monocytes # (Auto) 0.8 10^3/uL 08/21/20 1439 Eosinophils # (Auto) 0.2 10^3/uL 08/21/20 1439 Basophils # (Auto) 0.1 10^3/uL 08/21/20 1439 Nucleated Red Blood Cells % (auto) 0.0 % 08/21/20 1439 Sodium Level 138 MEQ/L 08/21/20 1439 Potassium Level 3.9 MEQ/L 08/21/20 1439 Chloride Level 106 MEQ/L 08/21/20 1439 Anion Gap 7 MEQ/L L 08/21/20 1439 Carbon Dioxide Level 25 MEQ/L 08/21/20 1439 Blood Urea Nitrogen 8 MG/DL 08/21/20 1439 Creatinine 0.87 MG/DL 08/21/20 1439 Glomerular Filtration Rate > 60.0 08/21/20 1439 Fasting Glucose 99 MG/DL 08/21/20 1439 Calcium Level 8.9 MG/DL 08/21/20 1439 Total Bilirubin 0.5 MG/DL 08/21/20 1439 Direct Bilirubin 0.2 MG/DL 08/21/20 1439 Aspartate Amino Transf (AST/SGOT) 28 U/L 08/21/20 1439 Alanine Aminotransferase (ALT/SGPT) 41 U/L 08/21/20 1439 Alkaline Phosphatase 72 U/L 08/21/20 1439 Total Protein 6.9 GM/DL 08/21/20 1439 Albumin 3.5 GM/DL 08/21/20 1439 Albumin/Globulin Ratio 1.0 08/21/20 1439 Thyroid Stimulating Hormone (TSH) 1.490 uIU/ML 08/21/20 1439 Urine Opiates Screen NEGATIVE 08/21/20 1509 Urine Methadone Screen NEGATIVE 08/21/20 1509 Acetaminophen Level < 2.0 UG/ML L 08/21/20 1439 Urine Barbiturates Screen NEGATIVE 08/21/20 1509 Urine Phencyclidine Screen NEGATIVE 08/21/20 1509 Urine Amphetamines Screen NEGATIVE 08/21/20 1509 Urine Benzodiazepines Screen NEGATIVE 08/21/20 1509 Urine Cocaine Metabolite Screen NEGATIVE 08/21/20 1509 Urine Cannabinoids Screen NEGATIVE 08/21/20 1509 Ethyl Alcohol Level < 0.003 % 08/21/20 1439 Syphilis Serology NONREACTIVE 08/21/20 1439 Chlamydia trachomatis DNA (MIGUEL) NEGATIVE 08/21/20 1509 Coronavirus (COVID-19)(PCR) NEGATIVE 10/06/20 2135 Hepatitis B Surface Antigen NEGATIVE 08/21/20 1439 Hepatitis B Surface Antibody POSITIVE 08/21/20 1439 Hepatitis C Antibody Index 0.1 INDEX 08/21/20 1439 HIV Antigen/Antibody Combo Qual NEGATIVE 08/21/20 1439 Influenza Type A (RT-PCR) NEGATIVE 12/18/20 2135 Influenza Type B (RT-PCR) NEGATIVE 10/06/202134 Respiratory Syncytial Virus (PCR) NEGATIVE 10/06/202134 Neisseria gonorrhoeae DNA (MIGUEL) NEGATIVE 08/21/20 1509 DATE OF SERVICE: 10/27/20 HISTORY: Patient has had multiple psychiatric hospitalizations. He was brought this time by [facility] police on a AOT pick pack worker order. Patient continues to have no meaningful engagement toward his treatment. Per staff , he has not been engaging in aggressive behavior. He seems to be disturbed but by auditory hallucination shooting his face upon approaching him. Subjective: Patient continues to be paranoid, acting on his delusion and refusing to meet with this casualty underwriter. Several attempts were made to no avail, he continues to refuse the meeting. Objective: VITAL SIGNS: See below. NEW TEST RESULTS: See below CURRENT MEDICATIONS: See below. MENTAL STATUS EXAMINATION: Patient has not been ccooperative and therefore this mental status has been only by observation Patient is a 55 year old male, who is positively psychotic. Speech: Is scant Thought processes is illogical, inappropriate and circumstantial. Thought content: paranoid, delusional and acting upon his delusion. Judgment: Impaired by his psychosis. Insight: very limited, OrientatioRecent and remote memory: Attention span and concentration: Unable to attend and concentrate. Fund of knowledge: Unable to verify. Mood: Dysphoric Affect: Inappropriate DIAGNOSES: 1. Schizophrenia spectrum disorder,(paranoid type) MANAGEMENT PLAN: Continue same medications TIME SPENT: minutes. Vital Signs Vital Signs Date Time Temp Pulse Resp B/P (MAP) Pulse Ox O2 Delivery O2 Flow Rate FiO2 10/26/20 18:18 98.7 110 15 127/78 (94) 97 Room Air Current Medications Current Medications Medications (Trade) Dose Ordered Sig/Jovany Route PRN Reason Start Time Stop Time Status Last Admin Dose Admin Acetaminophen (Tylenol Tab) 650 mg Q6HP PRN PO HEADACHE or DISCOMFORT 08/21/20 18:00 09/28/20 20:45 DC 09/18/20 16:10 Al Hydrox/Mg Hydrox/Simethicone (Mylanta) 30 ml Q4HP PRN PO HEARTBURN/INDIGESTION 08/21/20 18:00 10/26/20 15:41 Aripiprazole (AbiLIFY) 5 mg QHS PO 09/19/20 21:00 09/27/20 14:26 DC 09/26/20 20:33 Aripiprazole (AbiLIFY) 10 mg QHS PO 09/27/20 21:00 10/26/20 20:06 Ascorbic Acid (Vitamin C) 250 mg DAILY PO 08/22/20 09:00 10/24/20 09:19 Benztropine Mesylate (Cogentin) 0.5 mg BID PO 08/21/20 21:00 10/27/20 08:08 Betamethasone Dipropionate (Diprosone) apply daily to effec... DAILY TOP 09/12/20 09:00 10/24/20 09:19 Cetirizine HCl (ZyrTEC) 5 mg QHS PO 10/07/20 02:15 10/07/20 03:47 DC Cyanocobalamin (Vitamin B12) 1,000 mcg DAILY PO 08/22/20 09:00 10/24/20 09:16 Gabapentin (Neurontin) 300 mg TID PO 09/02/20 16:00 10/27/20 15:44 Haloperidol (Haldol) 5 mg Q4HP PRN PO AGITATION 08/23/20 15:30 10/16/20 06:46 Haloperidol (Haldol) 10 mg BID PO 08/21/20 21:00 09/15/20 10:36 DC 09/15/20 08:07 Haloperidol (Haldol) 10 mg BID PO 09/16/20 21:00 09/21/20 18:58 DC 09/21/20 07:59 Haloperidol (Haldol) 10 mg TID PO 09/21/20 21:00 10/27/20 15:44 Home Med (Med Rec Complete!) ASDIRECTED XX 08/21/20 17:00 08/21/20 16:56 DC Ibuprofen (Advil) 600 mg Q6HP PRN PO pain/discomfort 09/28/20 20:45 10/18/20 09:02 Magnesium Hydroxide (Milk Of Magnesia) 30 ml DAILYPRN PRN PO CONSTIPATION 08/21/20 18:00 10/16/20 10:18 Miscellaneous (Unresolved Clarification Entry) SEE LABEL COMMENTS DAILY XX 10/26/20 09:00 Miscellaneous (Unresolved Clarification Entry) SEE LABEL COMMENTS DAILY XX 10/19/20 09:00 10/20/20 09:24 DC Nicotine (Nicorette) 2 mg Q2HP PRN PO NICOTINE WITHDRAWAL 10/08/20 18:45 10/27/20 15:44 Nicotine (Nicorette) 2 mg Q4HP PRN PO NICOTINE WITHDRAWAL 08/22/20 08:00 10/08/20 18:41 DC 10/08/20 14:40 Olanzapine (ZyPREXA ZYDIS) 5 mg Q6HP PRN PO AGITATION 08/21/20 18:00 Cancel Ondansetron HCl (Zofran Odt) 2 mg Q8HP PRN PO NAUSEA OR VOMITING 10/07/20 02:15 10/07/20 03:49 DC Pyridoxine HCl (Vitamin B6) 50 mg DAILY PO 08/22/20 09:00 10/24/20 09:17 Sertraline HCl (Zoloft) 25 mg DAILY PO 09/12/20 09:00 09/15/20 10:36 DC 09/12/20 07:52 Trazodone HCl (Desyrel) 50 mg QHSP PRN PO INSOMNIA 08/21/20 18:00 09/28/20 20:37 Allergies Coded Allergies: Phenothiazines (Verified Allergy, Unknown, 06/26/20) fluphenazine (Verified Allergy, Unknown, 06/26/20) lithium (Verified Allergy, Unknown, 06/26/20) loxapine (Verified Allergy, Unknown, 06/26/20) meperidine (Verified Allergy, Unknown, 06/26/20) thioridazine (Verified Allergy, Unknown, 06/26/20) thiothixene (Verified Allergy, Unknown, 06/26/20) nicotine (Verified Adverse Reaction, Unknown, 08/01/20) Pt chews on transdermal patches, please do not give. BRIAN ROJAS MD Oct 27, 2020 18:11
[2020-10-27] MEDS: ARIPiprazole 10 MG TAB PO SCH (20:00)
[2020-10-28] MEDS: NICOTINE POLACRILEX 2 MG GUM PO PRN ×9 (00:21→23:26)
[2020-10-28] MEDS: GABAPENTIN 300 MG CAP PO SCH ×3 (08:48→20:32)
[2020-10-28] MEDS: BENZTROPINE 0.5 MG TAB PO SCH ×2 (08:48→20:32)
[2020-10-28] MEDS: PYRIDOXINE 50 MG TAB PO SCH (08:49)
[2020-10-28] MEDS: ASCORBIC ACID 250 MG TAB PO SCH (08:49)
[2020-10-28] MEDS: CYANOCOBALAMIN 500 MCG TAB PO SCH (08:49)
[2020-10-28] MEDS: BETAMETHASONE DIP 0.05% OINT 15 GM TOP SCH (08:50)
[2020-10-28 16:29] VITALS: BP 127/79
[2020-10-28] MEDS: ARIPiprazole 10 MG TAB PO SCH (20:32)
[2020-10-29] MEDS: NICOTINE POLACRILEX 2 MG GUM PO PRN ×7 (07:02→20:39)
[2020-10-29] MEDS: GABAPENTIN 300 MG CAP PO SCH ×3 (08:03→20:39)
[2020-10-29] MEDS: BENZTROPINE 0.5 MG TAB PO SCH ×2 (08:03→20:39)
[2020-10-29] MEDS: CYANOCOBALAMIN 500 MCG TAB PO SCH (08:37)
[2020-10-29] MEDS: BETAMETHASONE DIP 0.05% OINT 15 GM TOP SCH (08:37)
[2020-10-29] MEDS: PYRIDOXINE 50 MG TAB PO SCH (08:37)
[2020-10-29] MEDS: ASCORBIC ACID 250 MG TAB PO SCH (08:37)
[2020-10-29 16:11] VITALS: BP 122/65
[2020-10-29] MEDS: ARIPiprazole 10 MG TAB PO SCH (20:39)
[2020-10-30] MEDS: NICOTINE POLACRILEX 2 MG GUM PO PRN ×8 (07:44→22:23)
[2020-10-30] MEDS: BENZTROPINE 0.5 MG TAB PO SCH ×2 (08:07→20:08)
[2020-10-30] MEDS: GABAPENTIN 300 MG CAP PO SCH ×3 (08:07→20:08)
[2020-10-30] MEDS: ASCORBIC ACID 250 MG TAB PO SCH (09:00)
[2020-10-30] MEDS: PYRIDOXINE 50 MG TAB PO SCH (09:00)
[2020-10-30] MEDS: BETAMETHASONE DIP 0.05% OINT 15 GM TOP SCH (09:00)
[2020-10-30] MEDS: CYANOCOBALAMIN 500 MCG TAB PO SCH (09:00)
[2020-10-30] MEDS: ARIPiprazole 10 MG TAB PO SCH (21:00)
[2020-10-31] MEDS: GABAPENTIN 300 MG CAP PO SCH (08:47)
[2020-10-31] MEDS: NICOTINE POLACRILEX 2 MG GUM PO PRN ×2 (08:48→12:10)
[2020-10-31] MEDS: BENZTROPINE 0.5 MG TAB PO SCH (08:48)
[2020-10-31] MEDS: CYANOCOBALAMIN 500 MCG TAB PO SCH (08:49)
[2020-10-31] MEDS: BETAMETHASONE DIP 0.05% OINT 15 GM TOP SCH (08:49)
[2020-10-31] MEDS: ASCORBIC ACID 250 MG TAB PO SCH (08:49)
[2020-10-31] MEDS: PYRIDOXINE 50 MG TAB PO SCH (08:49)
--- NOTE | 2020-10-31 10:16 | MHDSPDOC ---
[facility] Discharge Summary Discharge Summary DATE OF ADMISSION: Aug 21, 2020 at 17:51 DATE OF DISCHARGE: October 31, 2020 at 1008 DISCHARGE DIAGNOSES: 1. Schizoaffective disorder bipolar type, most recent episode depressed 2. Tobacco use disorder. REASON FOR ADMISSION: : Patient is a 55 year old Single, Disabled, Domiciled, , Male who was living in an apartment that was run by [employer]. He began to feel paranoid there and stated that he did not feel safe to live in his apartment anymore. He believes that people are taking his things and he states that he is distrustful of the people there. Pt. was recently d/c from [facility] on 08/15. He returned to the ED on 08/21/20. As per ED report: "Pt. states he had [employer] disease case manager rn bring him to ER because he does not feel safe at his home. he reports he lives in a [employer] apt. for past 3 months. He states prior to that he resided in the [facility] in [facility]. He states that he lives alone, states p eople have been taking his things from his apt, states they must have keys to get in. He states he has had money missing, a jacket and some other things. He states he doesn't want to be be in [facility] program anymore, doesn't trust anyone there, stating they rip him off too. He states "I'm just giving up." He denies SI/HI, denies AH/VH. Pt. has recently d/c from [facility] on 08/15. He has multiple previous admissions here. he reports he has been taking medication as prescribed. Denies alcohol, drug use". CONSULTANTS INVOLVED: See Test Results, Medical H + P by Hospitalist. Patient was medically stable while on the unit with no medical issues. TREATMENT AND PROGRESS ON THE UNIT : Patient was afforded the following treatment modalities 1) Group Therapy, 2) Individual Therapy, 3) Medication Management, 4) Milieu Therapy and 5) Safe Environment HOSPITAL COURSE: Patient is well known to this facility having had approximately 10 admissions to [facility] at [facility]. His last admission was on 07/29/20 - 11/15/19 and he returned to this facility on 08/21/20. He has been here 71 days with continued paranoia, delusions that people are taking from him and poor insight with regards to his apartment and his safety there. It appeared that various conditions would exacerbate his paranoia. He becomes isolative and appears that diffirent environment makes him more paranoid. [place] through his admission, he had become increasingly bizarre or paranoid, he generally has been fairly aggressive, making racial slurs, and attempting to incite other patients, he generally has been isolative and strange. He would spend many times in the hallway speaking under his breathe, staring at peers with hypervigilance and having an aggressive behaviors. DISCHARGE ASSESSMENT: Patient remains guarded and paranoid. He demonstrates that he has poor insight and judgment stating that he can go to [facility] and meet up with his family. States that he has not been using drugs and alcohol in 7 years old. Patient has had several admissions in close succession and it was a treatment plan to continue long term care pharmacist hospitalization because he had not been successful in the community with continued paranoia and delusional thinking. During his admission, a referral to [facility] was made but there is a conflict with another patient who is already at [facility]. Patient is alert and oriented, he appears mildly older than his stated age. He is dressed appropriately in street clothes, his hygiene and grooming is well- kempt. He denies depression and suicidal ideation, admits to moderate anxiety because of being transferred. While he does not speak often about his paranoia, he is circumstantial when asked questions and divert many times in the interview. He circumvents many of his thoughts about why he needed to have continued treatment and remained superficial. He states, "I don't trust people. " Patient is medically stable, steady gait and has no medical conditions that were being monitored. Patient information was given to Dr. Flores (sp?) at [facility] and they have accepted the referral. MENTAL STATUS EXAMINATION ON DISCHARGE: Patient is a 55 year old Single, Disabled, Domiciled, , Male who was living in an apartment that was run by [employer]. He began to feel paranoid there and stated that he did not feel safe to live in his apartment anymore Speech is spontaeous, low tone, normal rate, normal volume Patient is a 55 year old Single, Disabled, Domiciled, Male who was living in an apartment that was run by [employer]. He began to feel paranoid there and stated that he did not feel safe to live in his apartment anymore. Language skills are intact Thought processes including: mildly linear, at times disorganized and tangential Thought content: denies depression and anxiety but continues to be paranoid. Denies suicidal/homicidal ideation, planning or intent. Abstract reasoning, and computation: fair Description of associations: denies, none observed Description of abnormal or psychotic thoughts: denies, none observed. Judgment: fair to poor at times Insight: fair to poor at times Orientation: alert and oriented to person, place, time Recent and remote memory: fair Attention span and concentration: fair Language: fair Fund of knowledge: average Mood: Flat mood "I am trying to get through the day Affect: flat MEDICATIONS ON DISCHARGE: See Medication Reconciliation PLAN/FOLLOWUP ARRANGEMENTS: Follow up will be made by [facility], Patient is transferred to that facility The amount of time spent in the coordination of care for this patient was approximately 35 minutes. Vital Signs/I&Os Vital Signs Date Time Temp Pulse Resp B/P (MAP) Pulse Ox O2 Delivery O2 Flow Rate FiO2 10/29/20 16:11 98.3 123 18 122/65 (84) 10/28/20 16:29 97 Room Air Laboratory Data Labs 24H Laboratory Tests 2 10/30/20 13:30: Coronavirus (COVID-19)(PCR) NEGATIVE Medications Scheduled Benztropine Mesylate (Benztropine Mesylate) 0.5 Mg Tablet, 0.5 MG PO BID, (Reported) Haloperidol (Haloperidol) 10 Mg Tablet, 10 MG PO BID, (Reported) Allergies Coded Allergies: Phenothiazines (Verified Allergy, Unknown, 06/26/20) fluphenazine (Verified Allergy, Unknown, 06/26/20) lithium (Verified Allergy, Unknown, 06/26/20) loxapine (Verified Allergy, Unknown, 06/26/20) meperidine (Verified Allergy, Unknown, 06/26/20) thioridazine (Verified Allergy, Unknown, 06/26/20) thiothixene (Verified Allergy, Unknown, 06/26/20) nicotine (Verified Adverse Reaction, Unknown, 08/01/20) Pt chews on transdermal patches, please do not give. LASHAUN ADAMS NP Oct 31, 2020 10:13
--- NOTE | 2020-10-31 10:37 | MHCR ---
[facility] CONSULTATION DATE: 10/30/2020 This is an assessment by video, he is seen in the presence of staff. VITAL SIGNS: Blood pressure 122/65, pulse 123, temperature 98.3. CHIEF COMPLAINT: Says is doing okay. SUBJECTIVE: He says that he is doing okay and that he did okay over the weekend, did not elaborate, then suggested he did not have much to say, says sleep was okay. MENTAL STATUS EXAM: Neat, cooperative, wears, a mask. No agitation, answers questions briefly, coherently. Affect is restricted in range. Denies any suicidal thoughts or intents. Denies any homicidal ideations or intents at present. No overt delusional ideations elicited. Cognition grossly intact. Judgment and insight are compromised. ASSESSMENT: Schizoaffective disorder. PLAN: Continue current care, and I understand he is going to be going to [facility] tomorrow for long-term care.
[2020-10-31] MEDS ORDERED: ASCO250T20 PO (11:02)
[2020-10-31] MEDS ORDERED: B-650TAB2 PO (11:02)
[2020-10-31] MEDS ORDERED: BENZ0.5T23 PO (11:02)
[2020-10-31] MEDS ORDERED: NICO2GUM PO (11:02)
[2020-10-31] MEDS ORDERED: HALO5TA PO (11:02)
[2020-10-31] MEDS ORDERED: ABIL10TA9 PO (11:02)
[2020-10-31] MEDS ORDERED: GABA-282 PO (11:02)
[2020-10-31] MEDS ORDERED: HALO10TA20 PO (11:02)
[2020-10-31] MEDS ORDERED: TRAZ-252 PO (11:02)
[2020-10-31] MEDS ORDERED: VITA500T40 PO (11:02)
[2020-10-31] MEDS ORDERED: GABAPENTIN 300 MG CAP PO ONE (12:15)
== END 2020-10-31 13:10 | DRG 885 ==
LOC: M ED 13:29 → M ED INP 17:51 → M PSY 08-22 00:50
PROVIDERS: ADMIT Psychiatry & Neurology Psychiatry; ATTEND Psychiatry & Neurology Psychiatry
DX: F25.1 Schizoaffective disorder, depressive type (principal); F17.200 Nicotine dependence, unspecified, uncomplicated; Z79.899 Other long term (current) drug therapy; Z88.8 Allergy status to other drugs, medicaments and biological substances; L40.8 Other psoriasis

== ENCOUNTER 2025-05-13 00:57 | Emergency (ER) | payer MEDICAID, MEDICARE ==
[~2025-05-13] VITALS: Ht 175.3 cm; Wt 95.4 kg
[~2025-05-13 00:57] MED LIST changes: +ABIL10TA9 PO; +ASCO250T20 PO; -BENZ-52 PO; +BENZ0.5T2 PO; -BENZ0.5T23 PO; +BENZ1TAB5 PO; +CLON0.5T2 PO; +COGE1INJ IM; +GABA-1172 PO; +GABA-1490 PO; -GABA-282 PO; +GABA-284 PO; -GABA-845 PO; -GABA600T4 PO; -HALO5TA PO; +HALO5TAB33 PO; +HYDR-3363 PO; -KLON0.5T PO; +KLON0.5T8 PO; +LEXA1TAB PO; +LORA1TAB23 PO; -LORA1TAB4 PO; +MAG30ORA18 PO; -MYLASSUD PO; +TRIH2TAB3 PO; +VITA250T27 PO; -VITA250T4 PO; +VITA500T40 PO
[2025-05-13 01:06] VITALS: TEMP 98.4
[2025-05-13 01:30] VITALS: BP 110/66
[2025-05-13 01:45] VITALS: O2SAT 95
== END 2025-05-13 06:10 | disposition home or self-care (01) ==
LOC: M ED 00:57
DX: S09.90XA Unspecified injury of head, initial encounter (principal); Y04.0XXA Assault by unarmed brawl or fight, initial encounter; Y92.009 Unspecified place in unspecified non-institutional (private) residence as the place of occurrence of the external cause; Y93.89 Activity, other specified; Y99.9 Unspecified external cause status; Z79.899 Other long term (current) drug therapy; Z88.8 Allergy status to other drugs, medicaments and biological substances

== ENCOUNTER 2025-06-01 20:56 | Emergency (ER) | payer MEDICARE ==
[~2025-06-01] VITALS: Ht 172.7 cm; Wt 95.5 kg
[2025-06-01 22:18] LABS: PLATELET COUNT, AUTOMATED 211 10^3/uL (150-450)
[2025-06-01 22:37] LABS: AMPHETAMINES LEVEL URINE NEGATIVE (NEGATIVE); BARBITURATES URINE NEGATIVE (NEGATIVE); BENZODIAZEPINES URINE NEGATIVE (NEGATIVE); CANNABINOIDS URINE NEGATIVE (NEGATIVE); COCAINE METABOLITE URINE NEGATIVE (NEGATIVE); METHADONE URINE NEGATIVE (NEGATIVE); OPIATES URINE NEGATIVE (NEGATIVE); PHENCYCLIDINE URINE NEGATIVE (NEGATIVE)
[2025-06-01 22:40] LABS: ETHYL ALCOHOL (ETHANOL) < 0.003 % (0.000-0.010)
[2025-06-01 22:41] LABS: SALICYLATE LEVEL < 3.0 MG/DL (<30)
[2025-06-01 22:42] LABS: ALT/SGPT 30 U/L (7.0-40); AST/SGOT 29 U/L (<34); CALCIUM LEVEL 8.7 MG/DL (8.3-10.6); CARBON DIOXIDE LEVEL 26 MMOL/L (20-31); CHLORIDE LEVEL 108 MMOL/L (98-107); CREATININE FOR GFR 0.93 MG/DL (0.70-1.30); GLOMERULAR FILTRATION RATE > 90.0 (>49); POTASSIUM SERUM 3.5 MMOL/L (3.5-5.1); SODIUM LEVEL 144 MMOL/L (136-145)
[2025-06-02 00:41] VITALS: BP 154/72; TEMP 97.6; O2SAT 96
== END 2025-06-02 00:49 | disposition home or self-care (01) ==
LOC: M ED 20:56
DX: F43.0 Acute stress reaction (principal); J44.9 Chronic obstructive pulmonary disease, unspecified; F32.A Depression, unspecified; F20.9 Schizophrenia, unspecified; F41.9 Anxiety disorder, unspecified; F17.200 Nicotine dependence, unspecified, uncomplicated; C34.90 Malignant neoplasm of unspecified part of unspecified bronchus or lung; Z88.8 Allergy status to other drugs, medicaments and biological substances; Z79.899 Other long term (current) drug therapy

== ENCOUNTER 2025-08-11 23:17 | Inpatient (IN) | payer MEDICARE, MEDICAID ==
[~2025-08-11] VITALS: Ht 172.7 cm; Wt 97.7 kg
[2025-08-11 23:44] LABS: PLATELET COUNT, AUTOMATED 190 10^3/uL (150-450)
[2025-08-12 00:14] LABS: ETHYL ALCOHOL (ETHANOL) < 0.003 % (0.000-0.010)
[2025-08-12 00:16] LABS: SALICYLATE LEVEL < 3.0 MG/DL (<30)
[2025-08-12 00:17] LABS: ALT/SGPT 33 U/L (7.0-40); AST/SGOT 27 U/L (<34); CALCIUM LEVEL 9.5 MG/DL (8.3-10.6); CARBON DIOXIDE LEVEL 25 MMOL/L (20-31); CHLORIDE LEVEL 109 MMOL/L (98-107); CREATININE FOR GFR 0.94 MG/DL (0.70-1.30); GLOMERULAR FILTRATION RATE > 90.0 (>49); POTASSIUM SERUM 4.5 MMOL/L (3.5-5.1); SODIUM LEVEL 145 MMOL/L (136-145)
[2025-08-12] MEDS: NICOTINE POLACRILEX 2 MG GUM PO PRN ×2 (00:38→13:42)
[2025-08-12 01:04] LABS: AMPHETAMINES LEVEL URINE NEGATIVE (NEGATIVE); BARBITURATES URINE NEGATIVE (NEGATIVE); BENZODIAZEPINES URINE NEGATIVE (NEGATIVE); CANNABINOIDS URINE NEGATIVE (NEGATIVE); COCAINE METABOLITE URINE NEGATIVE (NEGATIVE); METHADONE URINE NEGATIVE (NEGATIVE); OPIATES URINE NEGATIVE (NEGATIVE); PHENCYCLIDINE URINE NEGATIVE (NEGATIVE)
[2025-08-12] MEDS ORDERED: MOM 30 ML SUSPENSION UDC PO PRN (04:35)
[2025-08-12] MEDS ORDERED: IBUPROFEN 400 MG TAB PO PRN (04:35)
[2025-08-12] MEDS ORDERED: traZODone 50 MG TAB PO PRN (04:35)
[2025-08-12] MEDS ORDERED: MAALOX 30 ML SUSP *UDC PO PRN (04:35)
[2025-08-12] MEDS ORDERED: ACETAMINOPHEN 325 MG TAB PO PRN (04:35)
[2025-08-12] MEDS ORDERED: INVE156I IM (08:59)
[2025-08-12] MEDS ORDERED: HOME MED LIST COMPLETE! XX SCH (09:05)
[2025-08-12 14:55] VITALS: BP 100/55; TEMP 98; O2SAT 97
[2025-08-12] MEDS: VARENICLINE 1MG TABLET PO SCH (21:00)
[2025-08-15] MEDS: TUBERCULIN PPD 5 UNITS/0.1 ML ID ONE (18:02)
[2025-08-17] MEDS: PPD DOCUMENTATION ENTRY MISC XX SCH (09:26)
[2025-08-21 16:01] VITALS: BP 145/72; TEMP 97.9; O2SAT 97
[2025-08-23 18:25] VITALS: BP 123/78; TEMP 97.6; O2SAT 95
[2025-08-24] MEDS ORDERED: INVE156I IM (08:46)
[2025-08-24] MEDS ORDERED: HYDR-3363 PO (08:46)
[2025-08-24] MEDS: PALIPERIDONE PAL 156MG/1ML INJ (FREE PSY INPT ONLY) IM ONE (10:29)
== END 2025-08-24 13:45 | disposition home or self-care (01) | DRG 885 ==
LOC: M ED 23:17 → M ED INP 08-12 04:31 → M PSY 08-12 09:09
PROVIDERS: ADMIT Psychiatry & Neurology Neurology; ATTEND Psychiatry & Neurology Neurology
DX: F25.0 Schizoaffective disorder, bipolar type (principal); F41.9 Anxiety disorder, unspecified; Z88.8 Allergy status to other drugs, medicaments and biological substances; Z79.899 Other long term (current) drug therapy; R45.850 Homicidal ideations

== ENCOUNTER 2025-08-27 17:41 | Emergency (ER) | payer MEDICARE, MEDICAID ==
[~2025-08-27 17:41] MED LIST changes: +INVE156I IM
[2025-08-27 19:25] LABS: PLATELET COUNT, AUTOMATED 211 10^3/uL (150-450)
[2025-08-27 19:52] LABS: ETHYL ALCOHOL (ETHANOL) < 0.003 % (0.000-0.010)
[2025-08-27] MEDS: NICOTINE POLACRILEX 2 MG GUM PO ONE (19:52)
[2025-08-27 19:53] LABS: ALT/SGPT 36 U/L (7.0-40); AST/SGOT 93 U/L (<34); CALCIUM LEVEL 9.1 MG/DL (8.3-10.6); CARBON DIOXIDE LEVEL 25 MMOL/L (20-31); CHLORIDE LEVEL 104 MMOL/L (98-107); CREATININE FOR GFR 1.04 MG/DL (0.70-1.30); GLOMERULAR FILTRATION RATE 81.7 (>49); POTASSIUM SERUM 4.7 MMOL/L (3.5-5.1); SALICYLATE LEVEL < 3.0 MG/DL (<30); SODIUM LEVEL 141 MMOL/L (136-145)
[2025-08-27 21:16] LABS: AMPHETAMINES LEVEL URINE NEGATIVE (NEGATIVE); BARBITURATES URINE NEGATIVE (NEGATIVE); BENZODIAZEPINES URINE NEGATIVE (NEGATIVE); COCAINE METABOLITE URINE NEGATIVE (NEGATIVE); METHADONE URINE NEGATIVE (NEGATIVE)
[2025-08-27 21:17] LABS: CANNABINOIDS URINE NEGATIVE (NEGATIVE); OPIATES URINE NEGATIVE (NEGATIVE); PHENCYCLIDINE URINE NEGATIVE (NEGATIVE)
[2025-08-28 03:21] VITALS: BP 106/62; TEMP 96.7; O2SAT 96
[2025-08-28] MEDS: NICOTINE POLACRILEX 2 MG GUM PO ONE ×2 (03:25→08:33)
[2025-08-28] MEDS ORDERED: HYDR-3363 PO (04:13)
[2025-08-28] MEDS ORDERED: HOME MED LIST COMPLETE! XX SCH (04:15)
== END 2025-08-28 11:41 | disposition home or self-care (01) ==
LOC: M ED 17:41
DX: F43.0 Acute stress reaction (principal); R91.1 Solitary pulmonary nodule; F32.A Depression, unspecified; F17.200 Nicotine dependence, unspecified, uncomplicated; F10.10 Alcohol abuse, uncomplicated; Z88.8 Allergy status to other drugs, medicaments and biological substances; Z79.899 Other long term (current) drug therapy

== ENCOUNTER 2025-09-17 01:12 | Emergency (ER) | payer MEDICARE, MEDICAID ==
[~2025-09-17] VITALS: Ht 175.3 cm; Wt 95.0 kg
[2025-09-17 02:57] LABS: PLATELET COUNT, AUTOMATED 210 10^3/uL (150-450)
[2025-09-17 03:27] LABS: ALT/SGPT 21 U/L (7.0-40); AST/SGOT 17 U/L (<34); CALCIUM LEVEL 8.3 MG/DL (8.3-10.6); CARBON DIOXIDE LEVEL 26 MMOL/L (20-31); CHLORIDE LEVEL 107 MMOL/L (98-107); CREATININE FOR GFR 0.98 MG/DL (0.70-1.30); GLOMERULAR FILTRATION RATE 87.7 (>49); POTASSIUM SERUM 3.8 MMOL/L (3.5-5.1); SALICYLATE LEVEL < 3.0 MG/DL (<30); SODIUM LEVEL 143 MMOL/L (136-145)
[2025-09-17 03:36] LABS: ETHYL ALCOHOL (ETHANOL) < 0.003 % (0.000-0.010)
[2025-09-17] MEDS: NICOTINE POLACRILEX 2 MG GUM PO ONE ×2 (04:30→09:44)
[2025-09-17 04:40] LABS: AMPHETAMINES LEVEL URINE NEGATIVE (NEGATIVE); BARBITURATES URINE NEGATIVE (NEGATIVE); BENZODIAZEPINES URINE NEGATIVE (NEGATIVE); CANNABINOIDS URINE NEGATIVE (NEGATIVE); COCAINE METABOLITE URINE NEGATIVE (NEGATIVE); METHADONE URINE NEGATIVE (NEGATIVE); OPIATES URINE NEGATIVE (NEGATIVE)
[2025-09-17 05:17] LABS: PHENCYCLIDINE URINE NEGATIVE (NEGATIVE)
[2025-09-17 10:16] VITALS: BP 100/63; TEMP 98.5; O2SAT 96
== END 2025-09-17 11:19 | disposition home or self-care (01) ==
LOC: M ED 01:12
DX: F25.9 Schizoaffective disorder, unspecified (principal); F17.200 Nicotine dependence, unspecified, uncomplicated; Z88.8 Allergy status to other drugs, medicaments and biological substances; Z79.899 Other long term (current) drug therapy

== ENCOUNTER 2025-10-19 12:26 | Emergency (ER) | payer MEDICARE, MEDICAID ==
[~2025-10-19] VITALS: Ht 175.3 cm; Wt 96.9 kg
[2025-10-19 12:39] VITALS: BP 144/84; TEMP 97.3; O2SAT 99
[2025-10-19] MEDS: NICOTINE 21 MG/24 HR 1 EA TRANSDERMAL TD ONE (13:17)
[2025-10-19 13:27] LABS: PLATELET COUNT, AUTOMATED 236 10^3/uL (150-450)
[2025-10-19 13:55] LABS: AMPHETAMINES LEVEL URINE NEGATIVE (NEGATIVE); BARBITURATES URINE NEGATIVE (NEGATIVE); BENZODIAZEPINES URINE NEGATIVE (NEGATIVE); CANNABINOIDS URINE NEGATIVE (NEGATIVE); COCAINE METABOLITE URINE NEGATIVE (NEGATIVE); METHADONE URINE NEGATIVE (NEGATIVE); OPIATES URINE NEGATIVE (NEGATIVE); PHENCYCLIDINE URINE NEGATIVE (NEGATIVE)
[2025-10-19 13:56] LABS: ETHYL ALCOHOL (ETHANOL) < 0.003 % (0.000-0.010)
[2025-10-19 13:58] LABS: ALT/SGPT 27 U/L (7.0-40); AST/SGOT 23 U/L (<34); CALCIUM LEVEL 8.9 MG/DL (8.3-10.6); CARBON DIOXIDE LEVEL 27 MMOL/L (20-31); CHLORIDE LEVEL 106 MMOL/L (98-107); CREATININE FOR GFR 0.88 MG/DL (0.70-1.30); GLOMERULAR FILTRATION RATE > 90.0 (>49); POTASSIUM SERUM 4.2 MMOL/L (3.5-5.1); SALICYLATE LEVEL < 3.0 MG/DL (<30); SODIUM LEVEL 140 MMOL/L (136-145)
[2025-10-19] MEDS: PALIPERIDONE PALMITATE 156 MG/1 ML IM ONE (16:52)
== END 2025-10-19 16:54 | disposition home or self-care (01) ==
LOC: M ED 12:26
DX: F25.9 Schizoaffective disorder, unspecified (principal); F32.9 Major depressive disorder, single episode, unspecified; F17.200 Nicotine dependence, unspecified, uncomplicated; Z85.118 Personal history of other malignant neoplasm of bronchus and lung; Z88.8 Allergy status to other drugs, medicaments and biological substances; Z79.899 Other long term (current) drug therapy